=== PATIENT | male | born 1950 | race African-American/Black ===

== ENCOUNTER 2016-09-19 09:16 | Inpatient (IN) | payer OTHER ==
[2016-09-19 09:31] VITALS: BMI 18.8
--- NOTE | 2016-09-19 09:33 | PDOC ---
History of Present Illness - General History Source: Patient, Old Records Exam Limitations: No Limitations <Josefina Allison - Last Filed: 09/19/16 12:15> - History of Present Illness Initial Comments: 09/19/16 09:44 The patient is a 66 year old male, with a significant past medical history of Asthma, Hepatitis C, and small bowel obstruction s/p resection (2013), who presents to the emergency department with abdominal pain, nausea and vomiting for about 18 hours. He reports his last BM was about 14 hours ago, He reports numerous episodes of brown, liquid emesis. He states his abdominal pain is constant and diffuse. He states his pain feels similar to his prior experience with SBO. He also reports his bilateral ears feel clogged. He denies chest pain, shortness of breath, headache and dizziness. He denies fever, chills, diarrhea and constipation. He denies dysuria, frequency, urgency and hematuria. Allergies: NKDA Past surgical history: appendectomy, small bowel resection s/p SBO Social history: denies toxic habits <Nicolette Iverson - Last Filed: 09/19/16 13:52> - General Chief Complaint: Pain Stated Complaint: ABD PAIN Time Seen by Provider: 09/19/16 09:33 Past History - Past Medical History Asthma: Yes GI Disorders: Yes (sbo) Liver Disease: Yes (HEPATITIS C) - Surgical History Abdominal Surgery: Yes (EXP.LAP FOR SBO; RESECTION) Appendectomy: Yes - Immunization History Immunization Up to Date: Yes - Psycho/Social/Smoking Cessation Hx Anxiety: No Suicidal Ideation: No Smoking Status: Yes Smoking History: Former smoker Have you smoked in the past 12 months: No Number of Cigarettes Smoked Daily: 5 Information on smoking cessation initiated: No 'Breaking Loose' booklet given: 11/05/12 Hx Alcohol Use: No Drug/Substance Use Hx: No Substance Use Type: None Hx Substance Use Treatment: No <Josefina Allison - Last Filed: 09/19/16 12:15> <Nicolette Iverson - Last Filed: 09/19/16 13:52> - Past Medical History Allergies/Adverse Reactions: Allergies Allergy/AdvReac Type Severity Reaction Status Date / Time No Known Allergies Allergy Verified 09/19/16 09:24 Home Medications: Ambulatory Orders Albuterol Sulfate Inhaler - [Ventolin Hfa Inhaler -] 2 inh PO Q6H 09/19/16 Review of Systems - Review of Systems Able to Perform ROS?: Yes Comments:: 09/19/16 09:45 GENERAL/CONSTITUTIONAL: No fever or chills. No weakness. HEAD, EYES, EARS, NOSE AND THROAT: No change in vision. No ear pain or discharge. No sore throat. CARDIOVASCULAR: No chest pain or shortness of breath. RESPIRATORY: No cough, wheezing, or hemoptysis. GASTROINTESTINAL: (+) abdominal pain, nausea, vomiting, No diarrhea or constipation. GENITOURINARY: No dysuria, frequency, or change in urination. MUSCULOSKELETAL: No joint or muscle swelling or pain. No neck or back pain. SKIN: No rash NEUROLOGIC: No headache, vertigo, loss of consciousness, or change in strength/ sensation. ENDOCRINE: No increased thirst. No abnormal weight change. HEMATOLOGIC/LYMPHATIC: No anemia, easy bleeding, or history of blood clots. ALLERGIC/IMMUNOLOGIC: No hives or skin allergy. <Nicolette Iverson - Last Filed: 09/19/16 13:52> *Physical Exam - Vital Signs Last Vital Signs Temp Pulse Resp BP Pulse Ox 97.7 F 106 H 22 121/100 100 09/19/16 09:24 09/19/16 09:24 09/19/16 09:24 09/19/16 09:24 09/19/16 09:24 <Josefina Allison - Last Filed: 09/19/16 12:15> - Vital Signs Last Vital Signs Temp Pulse Resp BP Pulse Ox 97.7 F 106 H 22 121/100 100 09/19/16 09:24 09/19/16 09:24 09/19/16 09:24 09/19/16 09:24 09/19/16 09:24 - Physical Exam Comments: 09/19/16 09:46 GENERAL: (+) Cachectic. Awake, alert, and fully oriented, in no acute distress HEAD: (+) Temporal muscle wasting. No signs of trauma EYES: PERRLA, EOMI, sclera anicteric, conjunctiva clear ENT: (+) Dry oral mucosa. Auricles normal inspection, hearing grossly normal, nares patent, oropharynx clear without exudates. NECK: Normal ROM, supple, no lymphadenopathy, JVD, or masses LUNGS: (+) clear anterior with distant breath sounds diffusely. Breath sounds equal, No wheezes, and no crackles HEART: Regular rate and rhythm, normal S1 and S2, no murmurs, rubs or gallops ABDOMEN: (+) rigid abdomen with diffuse tenderness. normoactive bowel sounds. No guarding, no rebound. No masses EXTREMITIES: Normal range of motion, no edema. No clubbing or cyanosis. No cords, erythema, or tenderness NEUROLOGICAL: Cranial nerves II through XII grossly intact. Normal speech, normal gait SKIN: Warm, Dry, normal turgor, no rashes or lesions noted. <Nicolette Iverson - Last Filed: 09/19/16 13:52> ED Treatment Course - LABORATORY CBC & Chemistry Diagram: 09/19/16 10:06 09/19/16 10:06 <Josefina Allison - Last Filed: 09/19/16 12:15> - LABORATORY CBC & Chemistry Diagram: 09/19/16 10:06 09/19/16 10:06 - RADIOLOGY Radiograph Interpretation: 09/19/16 12:11 CXR was read by Impression: Abdomen CT was read by Dr. Colindres at 11:45 Impression: diffuse moderate dilation of the small bowel loops measuring up to 3.5 cm in diameter consistent with a distal small bowel obstruction. Point of transition is not identified on this exam. Post-op sutures around the mid to distal sigmoid colon. Dense calcified atheromatous plaques in the abdominal aorta wall down through its bifurcation. <Nicolette Iverson - Last Filed: 09/19/16 13:52> Medical Decision Making - Medical Decision Making 09/19/16 12:15 66-year-old male with history of asthma and multiple abdominal surgeries for small bowel obstruction presents to the emergency Department with complaints of 18 hours of abdominal pain and obstipation as well as nausea and vomiting. Differential diagnosis includes but is not limited to: Small bowel obstruction secondary to adhesions, peritonitis, colitis, dehydration, sepsis, toxic/ metabolic derangement. Plan: 1. Labs 2. Upright chest 3. Antiemetics 4. Pain management 5. CT scan of the abdomen and pelvis 6. NG tube 7. General surgery consult 8. Observe and reevaluate <Josefina Allison - Last Filed: 09/19/16 12:15> - Medical Decision Making 09/19/16 12:09 Dr. Omid Gardner was paged at his office requesting a callback for doctor to doctor consult. 09/19/16 12:10 Dr. Lubin was paged at this time requesting a call back for doctor to doctor consult. <Nicolette Iverson - Last Filed: 09/19/16 13:52> *DC/Admit/Observation/Transfer - Discharge Dispostion Admit: Yes - Attestations Physician Attestion: 09/19/16 12:17 I, Dr. Josefina Allison, attest that the scribes documentation that appears above has been prepared under my direction and personally reviewed by me in its entirety. I confirmed that the note above accurately reflects all work, treatment, procedures, and medical decision-making performed by me. <Josefina Allison - Last Filed: 09/19/16 12:15> - Attestations Scribe Attestion: 09/19/16 09:48 Documentation prepared by Nicolette Iverson, acting as medical transport specialist for Josefina Allison MD, <Nicolette Iverson - Last Filed: 09/19/16 13:52> Diagnosis at time of Disposition: Small bowel obstruction - Discharge Dispostion Condition at time of disposition: Stable - Referrals
[2016-09-19] MEDS ORDERED: morphine CARPU-JECT 4 MG/1 ML DISP.SYRIN IVPUSH ONE (09:43)
[2016-09-19] MEDS ORDERED: ONDANSETRON 4 MG/2 ML VIAL IVPUSH ONE (09:43)
[2016-09-19] MEDS ORDERED: SODIUM CHLORIDE 1,000 ML IV STA ×2 (09:43→09:44)
[2016-09-19] MEDS ORDERED: morphine CARPU-JECT 4 MG/1 ML DISP.SYRIN ONE (10:44)
[2016-09-19] MEDS ORDERED: ONDANSETRON 4 MG/2 ML VIAL ONE (10:44)
[2016-09-19 11:04] LABS: BASOPHIL 0.2 % (0-2.0); MCH 26.7 pg (25.7-33.7); MCHC 32.4 g/dl (32.0-35.9); MEAN CELL VOLUME 82.5 fl (80-96); MEAN PLT VOLUME 8.1 fl (7.5-11.1); NEUTROPHILS 88.8 % (42.8-82.8); PLATELET COUNT 225 K/MM3 (134-434); RDW 16.1 % (11.9-15.9); WHITE BLOOD COUNT 9.2 K/mm3 (4.0-10.0)
[2016-09-19 11:20] LABS: INR 1.08 (0.82-1.09); PROTHROMBIN TIME (PATIENT) 11.9 SEC (9.98-11.88)
[2016-09-19 11:23] LABS: ACTIVATED PTT 33.6 SECONDS (26.9-34.4)
[2016-09-19 11:46] LABS: ALBUMIN 5.1 g/dl (3.4-5.0); ANION GAP 12 (8-16); BILIRUBIN,TOTAL 0.9 mg/dL (0.2-1.0); CALCIUM 11.1 mg/dL (8.5-10.1); CO2 31 mmol/L (21-32); COCKROFT - GAULT 34.01; CREATININE 1.6 mg/dL (0.7-1.3); GLUCOSE,RANDOM 126 mg/dL (74-106); MAGNESIUM 2.6 mg/dL (1.8-2.4); PHOSPHOROUS 3.3 mg/dL (2.5-4.9); SGOT/AST 29 U/L (15-37); SGPT/ALT 18 U/L (12-78); TOT PROT 10.2 g/dl (6.4-8.2)
[2016-09-19 11:47] LABS: ALK PHOS 80 U/L (45-117); TROPONIN I < 0.02 ng/ml (0.00-0.05)
[2016-09-19] MEDS ORDERED: TETRACAINE/BENZOCAINE/BUTAMBEN 20 GM SPR TP ONE (12:04)
[2016-09-19] MEDS ORDERED: PIPERACILLIN/TAZOB 3.375 GM/50 ML PRE-DOCKED IV ONE (12:11)
[2016-09-19] MEDS ORDERED: VANCOMYCIN 1,000 MG in DEXTROSE 5%-WATER - 250 ML IVPB ONE (12:11)
[2016-09-19] MEDS ORDERED: VANCOMYCIN 1 GRAM (PRE-DOCKED) 250 ML IVPB ONE (12:26)
[2016-09-19] MEDS ORDERED: PIPERACILLIN/TAZOB 3.375 GM 50 ML IVPB ONE (12:26)
[2016-09-19 12:41] LABS: URINE APPEARANCE CLEAR; URINE BILIRUBIN NEGATIVE (NEGATIVE); URINE BLOOD NEGATIVE (NEGATIVE); URINE COLOR YELLOW; URINE GLUCOSE (UA) NEGATIVE (NEGATIVE); URINE KETONE TRACE (NEGATIVE); URINE LEUK ESTERASE NEGATIVE (NEGATIVE); URINE NITRITE NEGATIVE (NEGATIVE); URINE UROBILINOGEN 2.0 E.U/dl E.U./dl (0.2-1.0)
[2016-09-19 12:47] LABS: URINE PROTEIN 1+ (NEGATIVE)
[2016-09-19 12:53] LABS: URINE HYALINE CAST 35 /lpf; URINE MUCUS FEW; URINE RBC 4 /hpf (0-3); URINE WBC 2 /hpf (3-5)
[2016-09-19] MEDS ORDERED: ONDANSETRON 4 MG/2 ML VIAL IVPB PRN (13:40)
[2016-09-19] MEDS: SODIUM CHLORIDE 1,000 ML IV SCH (14:18)
--- NOTE | 2016-09-19 14:19 | HP ---
CHIEF COMPLAINT: Abdominal pain PCP: Brandy Lubin NP HISTORY OF PRESENT ILLNESS: 66 yo M with significant PMHx of Hep C and SBO s/p recection 2013 present with one day history of abdominal pain and nausea. He describes constant non- radiating stabbing 10/10 periumbilical pain. He states that initially he noticed just a distention with only being able to pass minimal amounts of gas and had a small bowl movement which then progressed into this periumbilical pain very similar to previous SBO pain. Pain was accompanied by 6-8 bout of non- bloody , non -bilous vomiting. He mentions chills and diaphoresis prior to arrival. With previous history of similar episode he promptly came to ER.He also mentions a 15lbs unintentional weight loss over past 6 mo. Denies CP, MORENO, SOB, or palpitations. ER course was notable for: (1)Abd. Ct shows SBO-Surgical consult, and NPO (2)Lactic acid was elevated --> Vanco/Zosyn x1 given (3)BUN/Cr elevated --> IVF with NS Recent Travel: Denies PAST MEDICAL HISTORY: Asthma and Hep. C (treated 2015, Dr. Guillen) PAST SURGICAL HISTORY: small bowel obstruction s/p resection 2013, appendectomy Social History: Smoking: quit 1.5yrs ago Alcohol:socially Drugs: marijuana 2x/week Family History: Allergies No Known Allergies Allergy (Verified 09/19/16 09:24) HOME MEDICATIONS: Home Medications Medication Instructions Recorded Albuterol Sulfate Inhaler - 2 inh PO Q6H 09/19/16 [Ventolin Hfa Inhaler -] REVIEW OF SYSTEMS CONSTITUTIONAL: Absent: fever, chills, diaphoresis, generalized weakness, malaise, loss of appetite, weight change HEENT: Absent: rhinorrhea, nasal congestion, throat pain, throat swelling, difficulty swallowing, mouth swelling, ear pain, eye pain, visual changes CARDIOVASCULAR: Absent: chest pain, syncope, palpitations, irregular heart rate, lightheadedness , peripheral edema RESPIRATORY: Absent: cough, shortness of breath, dyspnea with exertion, orthopnea, wheezing, stridor, hemoptysis GASTROINTESTINAL:(+) abdominal pain, abdominal distension, nausea, vomiting, Absent: diarrhea, constipation, melena, hematochezia GENITOURINARY: Absent: dysuria, frequency, urgency, hesitancy, hematuria, flank pain, genital pain MUSCULOSKELETAL: Absent: myalgia, arthralgia, joint swelling, back pain, neck pain SKIN: Absent: rash, itching, pallor HEMATOLOGIC/IMMUNOLOGIC: Absent: easy bleeding, easy bruising, lymphadenopathy, frequent infections ENDOCRINE: Absent: unexplained weight gain, unexplained weight loss, heat intolerance, cold intolerance NEUROLOGIC: Absent: headache, focal weakness or paresthesias, dizziness, unsteady gait, seizure, mental status changes, bladder or bowel incontinence PSYCHIATRIC: Absent: anxiety, depression, suicidal or homicidal ideation, hallucinations. PHYSICAL EXAMINATION GENERAL:AAOx3, mild distress, chectic with temporal wasting. HEAD: NC/AT. EYES: PERRLA,EOMI,peripheral corneal opacity, sclera anicteric, conjunctiva clear. No lid lag. EARS, NOSE, THROAT: Dry mucous membranes. NECK: Normal range of motion, supple without lymphadenopathy, JVD, or masses. LUNGS: CTAB. No wheezes, and no crackles. No accessory muscle use. HEART: RRR, normal S1 and S2 without M/G/R ABDOMEN: Rigid abdomen, periumbilical tenderness, normoactive bowel sounds, (+) voluntary guarding, no rebound, no masses. No hepatomegaly or splenomegaly. MUSCULOSKELETAL: Normal range of motion at all joints. No bony deformities or tenderness. No CVA tenderness. UPPER EXTREMITIES: 2+ pulses, warm, well-perfused. No cyanosis. No clubbing. No peripheral edema. LOWER EXTREMITIES: 2+ pulses, warm, well-perfused. No calf tenderness. No peripheral edema. NEUROLOGICAL: Cranial nerves II-XII intact. Normal speech. Normal gait. PSYCHIATRIC: Cooperative. Good eye contact. Appropriate mood and affect. SKIN: Warm, dry, normal turgor, no rashes or lesions noted, normal capillary refill. ASSESSMENT/PLAN: 66 yo M with h/o of SBO s/p resection in 2013 admitted to non-cardiac tele for SBO Problem List - Problem (1) Small bowel obstruction Assessment/Plan: * NPO * Surgical consult - Dr. Gardner * IVF with NS @ 125ml/hr * repeat Lactic acid. * given Vanco/Zosyn x 1 - ID consulted. Code(s): K56.69 - OTHER INTESTINAL OBSTRUCTION (2) DION (acute kidney injury) Assessment/Plan: * secondary to volume depletion from vomiting. * IVF with NS @ 125ml/hr * repeat labs in AM (3) Lactic acidemia Assessment/Plan: * IVF with NS @ 125ml/hr * repeat Lactic acid. (4) Asthma Assessment/Plan: * Albuterol PRN SOB (5) DVT prophylaxis Assessment/Plan: * Heparin 5000 units SQ BID Visit type - Emergency Visit Emergency Visit: Yes ED Registration Date: 09/19/16 Care time: The patient presented to the Emergency Department on the above date and was hospitalized for further evaluation of their emergent condition. - New Patient This patient is new to me today: Yes Date on this admission: 09/20/16 - Critical Care Critical Care patient: No
--- NOTE | 2016-09-19 14:49 | MSN ---
Admitting History and Physical - Primary Care Physician PCP: Brandy Lubin - Admission Chief Complaint: Abdominal pain History of Present Illness: MEDICAL STUDENT NOTE Mr. Acosta is a pleasant 66 year old male with past medical history significant for s/p small bowel resection in 2013 who presents with abdominal pain of 18 hour duration. The patient stated that 18 hours ago he began experiencing sharp pain in the periumbilical region of his stomach. The pain was rated 10/10 in intensity, was intermittent but present the majority of the time, did not radiate, and was similar to the pain he experienced in 2014 before the resection. Nothing makes the pain better and pushing on the abdomen makes the pain worse. The pain coincided with a feeling of abdominal distension , nausea, vomiting, and chills. The patient was not able to state how many times he vomited, but said that he vomited "all night". The vomit had a reddish color to it but the patient stated he had red soup earlier yesterday and that he did not see any blood in the vomit. His last bowel movement occurred approximately 12-14 hours ago. It was loose and he is unsure if there was blood. The abdominal pain became worse after the bowel movement. The patient states he has had unintentional weight loss of 15-20 lbs over the past 6-7 months; he states that he has always had a poor appetite. The patient also developed shortness of breath at approximately 4am which was remitted with use of his albuterol pump. Upon interview the patient states that his pain is 75% better and has no complaints. He denies headaches, nausea, vomiting, dizziness, chest pain, shortness of breath, numbness or tingling of the extremities. Tobacco use: Quit smoking 1.5 years ago Alcohol: 1 beer/week Recreational drugs: Marijuana use, 2x/week Past medical history: S/P small bowel resection in 2014, Hepatitis C infection unclear if treated, asthma Past surgical history: Small bowel resection 2014 Allergies: None Family History: None Medications: Albuterol pump, takes 2 times per day Social history: Lives with daughter History Source: Patient Limitations to Obtaining History: No Limitations - Past Medical History Gastrointestinal: Yes: Other (Hepatitis c, Laparotomy, small bowel reection) - Smoking History Smoking history: Former smoker Have you smoked in the past 12 months: No Aproximately how many cigarettes per day: 5 - Alcohol/Substance Use Hx Alcohol Use: No - Social History ADL: Independent History of Recent Travel: No Home Medications - Allergies Allergies/Adverse Reactions: Allergies Allergy/AdvReac Type Severity Reaction Status Date / Time No Known Allergies Allergy Verified 09/19/16 09:24 - Home Medications Home Medications: Ambulatory Orders Albuterol Sulfate Inhaler - [Ventolin Hfa Inhaler -] 2 inh PO Q6H 09/19/16 Family Disease History - Family Disease History Family Disease History: Diabetes: Sister Physical Examination Vital Signs: Vital Signs Temperature 97.7 F 09/19/16 09:24 Pulse Rate 106 H 09/19/16 09:24 Respiratory Rate 22 09/19/16 09:24 Blood Pressure 121/100 09/19/16 09:24 O2 Sat by Pulse Oximetry (%) 100 09/19/16 09:24 Constitutional: Yes: No Distress, Calm, Thin Eyes: Yes: EOM Intact, PERRL, Sclera Icterus, Other (Bilateral opaque, white- blue ring surrounding irises. Patient states rings have been present since and his brothers and sisters have them.). No: Ptosis HENT: Yes: WNL, Atraumatic, Normocephalic. No: Drooling, Nasal Congestion, Pharyngeal Erythema, Rhinnorhea, Tonsillar Exudate Neck: Yes: WNL, Supple, Trachea Midline. No: Lymphadenopathy, Rigid, Tenderness , Thyromegaly Cardiovascular: Yes: WNL, Regular Rate and Rhythm, S1, S2. No: Pulse Irregular , Murmur, Rub, S3, S4 Respiratory: Yes: WNL, Regular, CTA Bilaterally, Wheezes. No: Accessory Muscle Use, Diminished, Rales, Rhonchi, SOB Gastrointestinal: Yes: Tenderness (Periumbilical, tender to light palpation), Tenderness, Epigastrium, Tenderness, Rebound (Positive), Other (Positive for diffuse rigidity). No: Soft, Ascites, Distention, Hepatomegaly, Splenomegaly Extremities: Yes: WNL. No: Calf Tenderness, Cold, Cool, Cyanosis, Erythema Edema: No (No edema b/l LE) Peripheral Pulses WNL: Yes Peripheral Pulses: Left Radial: 2+, Right Radial: 2+, Left Doralis Pedis: 2+, Right Dorsalis Pedis: 2+ Integumentary: Yes: WNL. No: Jaundice, Rash, Skin Tear, Venous Stasis Changes Neurological: Yes: WNL, Alert, Oriented. No: Facial Droop, Lethargy, Unresponsive, Weakness Psychiatric: Yes: WNL, Alert, Oriented Assessment/Plan MEDICAL STUDENT ASSESSMENT AND PLAN Mr. Acosta is a 66 year old male s/p small bowel resection in 2013 who presents with small bowel obstruction. #Small bowel obstruction possibly due to adhesions from previous surgery, anticipating surgery with Dr. Gardner who performed patient's previous bowel surgery. - Chest x ray showed air under left diaphragm - Abdominal CT showed moderate dilation of small bowel loops up to 3.5 cm consistent with distal small bowel obstruction. - Dr. Gardner on case - Received one dose zosyn 3.375mg, one dose vancomycin 1000mg in ED - Received one dose morphine 4mg in ED - NPO - IVF started: NS 1000mls @ 125 mls/hr - Type and cross performed - Hgb: 15.8 Hct: 49. 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 Possibly arcus juvenilis or arcus senilis due to familial hypercholesterolemia. Lipid panel not performed in past and patient denies every being told he has high cholesterol. - Patient has glasses at home, states he has some difficulty with seeing that he attributes to old glasses prescription (last eye exam 2 years ago) - Lipid panel in AM to r/o arcus senilis - Will consider statin therapy depending on results of lipid panel - CHADSVASC score: 1 #DVT prophylaxis - Heparin 5000U SQ BID - SCDs Disposition: Currently awaiting patient to be taken to surgery.
--- NOTE | 2016-09-19 15:46 | PN ---
Teaching Attending Note Name of Resident: Dale Lay ATTENDING PHYSICIAN STATEMENT I saw and evaluated the patient. I reviewed the resident's note and discussed the case with the resident. I agree with the resident's findings and plan as documented. SUBJECTIVE: fever/chills with vomiting and abdominal pain starting at midnight, no appetite for last 6 months OBJECTIVE: Vital Signs Temperature 99 F 09/19/16 14:47 Pulse Rate 74 09/19/16 14:47 Respiratory Rate 18 09/19/16 14:47 Blood Pressure 116/83 09/19/16 14:47 O2 Sat by Pulse Oximetry (%) 97 09/19/16 14:47 CBCD WBC 9.2 K/mm3 (4.0-10.0) D 09/19/16 10:06 RBC 5.94 M/mm3 (4.00-5.60) H D 09/19/16 10:06 Hgb 15.8 GM/dL (11.7-16.9) D 09/19/16 10:06 Hct 49.0 % (35.4-49) D 09/19/16 10:06 MCV 82.5 fl (80-96) 09/19/16 10:06 MCHC 32.4 g/dl (32.0-35.9) 09/19/16 10:06 RDW 16.1 % (11.9-15.9) H 09/19/16 10:06 Plt Count 225 K/MM3 (134-434) D 09/19/16 10:06 MPV 8.1 fl (7.5-11.1) 09/19/16 10:06 CMP Sodium 138 mmol/L (136-145) 09/19/16 10:06 Potassium 5.2 mmol/L (3.5-5.1) H D 09/19/16 10:06 Chloride 95 mmol/L (98-107) L 09/19/16 10:06 Carbon Dioxide 31 mmol/L (21-32) D 09/19/16 10:06 Anion Gap 12 (8-16) 09/19/16 10:06 BUN 16 mg/dL (7-18) D 09/19/16 10:06 Creatinine 1.6 mg/dL (0.7-1.3) H D 09/19/16 10:06 Creat Clearance w eGFR 43.20 (>60) 09/19/16 10:06 Random Glucose 126 mg/dL (74-106) H D 09/19/16 10:06 Calcium 11.1 mg/dL (8.5-10.1) H D 09/19/16 10:06 Total Bilirubin 0.9 mg/dL (0.2-1.0) D 09/19/16 10:06 AST 29 U/L (15-37) 09/19/16 10:06 ALT 18 U/L (12-78) D 09/19/16 10:06 Alkaline Phosphatase 80 U/L (45-117) 09/19/16 10:06 Total Protein 10.2 g/dl (6.4-8.2) H 09/19/16 10:06 Albumin 5.1 g/dl (3.4-5.0) H 09/19/16 10:06 CARDIAC ENZYMES Creatine Kinase 530 IU/L (39-308) H D 09/19/16 10:06 Troponin I < 0.02 ng/ml (0.00-0.05) 09/19/16 10:06 Current Medications Generic Name Dose Route Start Last Admin Trade Name Freq PRN Reason Stop Dose Admin Heparin Sodium (Porcine) 5,000 unit 09/19/16 22:00 Heparin - SQ BID EMILY Sodium Chloride 1,000 mls @ 125 mls/hr 09/19/16 13:45 09/19/16 14:18 Normal Saline - IV 125 mls/hr ASDIR EMILY Administration Ondansetron HCl 4 mg 09/19/16 13:40 Zofran Injection IVPB Q8H PRN NAUSEA Home Medications Medication Instructions Recorded Albuterol Sulfate Inhaler - 2 inh PO Q6H 09/19/16 [Ventolin Hfa Inhaler -] PE: PER RESIDENT'S NOTE ASSESSMENT AND PLAN: Patient is a 66 yo M with significant PMHx of Hep C and SBO s/p recection 2013 present with one day history of abdominal pain and nausea. He describes constant non-radiating stabbing 10/10 periumbilical pain. prior history of SBO. 15 pounds of weight lose # Acute distal small bowel obstruction NGt if needed, npo, no pain meds for now , just IV tylenol if needed to avoid ileus # lactic acidosis , hurtado culture, iv zosyn and id consult # Acute Dehydartion IVF # Acute renal failure due to dehydration IVF, repeat levels in am # weight lose r/o malignancy DVT px: heparin sq
[2016-09-19 15:53] LABS: CALCIUM 8.3 mg/dL (8.5-10.1)
[2016-09-19 15:56] LABS: COCKROFT - GAULT 45.35; CREATININE 1.2 mg/dL (0.7-1.3)
--- NOTE | 2016-09-19 16:57 | CONSULT ---
Consult Consult Specialty:: Surgery Reason for Consultation:: Small bowel obstruction - History of Present Illness History of Present Illness: 66 male presents to ER for abdominal pain, distention, and vomiting x 1 day No flatus x 1 day History of bowel obstruction in the past needing an exploratory laparotomy and bowel resection - History Source History Provided By: Patient, Medical Record Limitations to Obtaining History: No Limitations - Past Medical History Gastrointestinal: Yes: Other (Hepatitis c, Laparotomy, small bowel reection) - Alcohol/Substance Use Hx Alcohol Use: No - Smoking History Smoking history: Former smoker Have you smoked in the past 12 months: No Aproximately how many cigarettes per day: 5 - Social History ADL: Independent History of Recent Travel: No Home Medications - Allergies Allergies/Adverse Reactions: Allergies Allergy/AdvReac Type Severity Reaction Status Date / Time No Known Allergies Allergy Verified 09/19/16 09:24 - Home Medications Home Medications: Ambulatory Orders Albuterol Sulfate Inhaler - [Ventolin Hfa Inhaler -] 2 inh PO Q6H 09/19/16 Family Disease History - Family Disease History Family Disease History: Diabetes: Sister Review of Systems - Review of Systems Constitutional: denies: Chills, Fever Neck: reports: No Symptoms Cardiovascular: denies: Chest Pain Respiratory: denies: Cough Gastrointestinal: reports: Abdominal Pain, Vomiting Genitourinary: reports: No Symptoms Pain Intensity: 2 Physical Exam Vital Signs: Vital Signs Temperature 99 F 09/19/16 14:47 Pulse Rate 74 09/19/16 14:47 Respiratory Rate 18 09/19/16 14:47 Blood Pressure 116/83 09/19/16 14:47 O2 Sat by Pulse Oximetry (%) 97 09/19/16 14:47 Constitutional: Yes: Calm HENT: Yes: WNL Neck: Yes: Supple Cardiovascular: Yes: Regular Rate and Rhythm Respiratory: Yes: Regular Gastrointestinal: Yes: Soft. No: Distention, Tenderness Neurological: Yes: Alert, Oriented Labs: CBC, BMP 09/19/16 15:00 Imaging - Results Cat Scan: Report Reviewed, Image Reviewed Problem List - Problems (1) Small bowel obstruction Code(s): K56.69 - OTHER INTESTINAL OBSTRUCTION Assessment/Plan 66 male with small bowel obstruction vs ileus Pain completely resolved Passing flatus Abd soft, NT, ND Diet as tolerated No surgical intervention needed at this time
[2016-09-19 17:07] LABS: HIV 1 & 2 AB NEGATIVE; HIV 1 AGp24 NEGATIVE
--- NOTE | 2016-09-19 17:35 | PN ---
Progress Note (short form) - Note Progress Note: ID consult dictated imp/reccd distal small bowel obstruction fever/chills with vomiting and abdominal pain starting at midnight prior history of SBO 15 pound weight loss no appetite for last 6 months +lactic acidosis no dysuria chronic SOB continue zosyn -gi coverage for now, f/u cultures ?malignancy agree with HIV testing
[2016-09-19] MEDS ORDERED: ALBUTEROL SO4 2.5/IPRATROPIUM 0.5 INH SOL 3 ML VIAL.NEB. NEB PRN (17:48)
[2016-09-19] MEDS: PIPERACILLIN/TAZOB 3.375 GM/50 ML PRE-DOCKED IVPB SCH (18:11)
[2016-09-19] MEDS ORDERED: morphine CARPU-JECT 2 MG/1 ML DISP.SYRIN IVPUSH ONE (18:28)
--- NOTE | 2016-09-19 19:23 | CONS ---
DATE OF CONSULTATION: DATE OF DICTATION: 09/19/2016 INFECTIOUS DISEASE CONSULTATION REQUESTING PHYSICIAN: Hospitalist service CONSULTING PHYSICIAN: Shannon Vilchis M.D. HISTORY OF PRESENT ILLNESS: This is a 66-year-old man with a prior history of small bowel resection. He originally had surgery in 2012. After he had a colonoscopy he was noted to have free air, subsequently he underwent surgery at that time he had. He subsequently had surgery in 2013 for a small bowel obstruction, at which time he had some small bowel resected. After that, he had a subsequent admission 2013 where he was medically managed for small bowel obstruction. He is now readmitted in 2016 with sudden onset from midnight last night of vomiting with acute abdominal pain. He reports fever and chills at home. He said he had a temperature of 102. He had 6-8 bouts of nonbloody vomiting. In the emergency room, he was noted to have a distal small bowel obstruction. He was noted to have an elevated lactic acid and ID consult was requested. He was given vancomycin and Zosyn. Patient reports for the last 6 months he has really had no appetite. He has had a 15-pound weight loss. PAST MEDICAL HISTORY: Notable for hepatitis C. He denies a history of HIV. He has a history of asthma and surgical history as per HPI. SOCIAL HISTORY: He recently quit smoking. He uses marijuana and alcohol socially. ALLERGIES: No known drug allergies. MEDICATION: Medications at home include Ventolin inhaler. FAMILY HISTORY: Denies any malignancy history. REVIEW OF SYSTEMS: Notable for midepigastric abdominal pain which has improved but is still present. PHYSICAL EXAMINATION: General: He is a thin man in no acute distress. Vital signs: He weighs 120 pounds. His temperature is 99, pulse 74, blood pressure 116/83, respiratory rate 18. HEENT: Normocephalic. Eyes are anicteric. He has temporal wasting. Neck: Supple. He has no thrush. Lungs: Distant bowel sounds. He has distant breath sounds. Lungs are clear to auscultation. Heart: Regular rate and rhythm. Abdomen: Firm. He has bowel sounds. He has midepigastric tenderness. He has a midline incision that is well healed. Extremities: Without edema. His white count is 9.2, hemoglobin 15.8, platelets 225, INR 1.08. BUN and creatinine were 16 and 1.6 on admission, with a lactic acid of 3.1. Urinalysis is 2 white cells. Total protein is 10.2 with an albumin of 5.1 and HIV screen is pending. Blood cultures have been sent. IMPRESSION: In summary, this is a 66-year-old man admitted with fevers, chills, acute onset of vomiting and abdominal pain. CAT scan consistent with distal small bowel obstruction. Concern for malignancy given the weight loss and lack of appetite. Would agree with human immunodeficiency virus testing. Would continue Zosyn for now for gastrointestinal coverage. He is n.p.o. and there is no parenteral metronidazole available with followup cultures which have been sent. I discussed his management with the primary service. SHANNON VILCHIS M.D. [id number] MTDD
[2016-09-19] MEDS: HEPARIN NA (PORCINE) 5,000 UNITS/ML 1ML VIAL SQ SCH (21:57)
[2016-09-20] MEDS: PIPERACILLIN/TAZOB 3.375 GM/50 ML PRE-DOCKED IVPB SCH ×3 (01:11→18:12)
[2016-09-20 08:03] LABS: BASOPHIL 0.4 % (0-2.0); EOSINOPHIL 0.5 % (0-4.5); MCH 26.7 pg (25.7-33.7); MCHC 32.5 g/dl (32.0-35.9); MEAN CELL VOLUME 82.1 fl (80-96); NEUTROPHILS 38.6 % (42.8-82.8); PLATELET COUNT 154 K/MM3 (134-434); WHITE BLOOD COUNT 6.1 K/mm3 (4.0-10.0)
[2016-09-20 08:18] LABS: INR 1.23 (0.82-1.09); PROTHROMBIN TIME (PATIENT) 13.6 SEC (9.98-11.88)
[2016-09-20 08:45] LABS: CHOLESTEROL 118 mg/dL (50-200); LDL CHOLESTEROL (ONLY SJRH) 43 mg/dL (5-100)
[2016-09-20 08:47] LABS: ALBUMIN 3.2 g/dl (3.4-5.0); ALK PHOS 43 U/L (45-117); ANION GAP 9 (8-16); BILIRUBIN,TOTAL 0.9 mg/dL (0.2-1.0); CALCIUM 8.2 mg/dL (8.5-10.1); CO2 25 mmol/L (21-32); COCKROFT - GAULT 54.43; GLUCOSE,RANDOM 80 mg/dL (74-106); PHOSPHOROUS 3.4 mg/dL (2.5-4.9); SGOT/AST 17 U/L (15-37); SGPT/ALT 12 U/L (12-78); TOT PROT 6.1 g/dl (6.4-8.2)
[2016-09-20] MEDS ORDERED: PT OWN MED DRAWER 7, Y5N ONE ×2 (10:59→17:47)
--- NOTE | 2016-09-20 12:21 | EKG ---
Test Reason : Blood Pressure : / mmHG Vent. Rate : 068 BPM Atrial Rate : 068 BPM P-R Int : 142 ms QRS Dur : 074 ms QT Int : 400 ms P-R-T Axes : 077 076 073 degrees QTc Int : 425 ms NORMAL SINUS RHYTHM NORMAL ECG WHEN COMPARED WITH ECG OF 11-JAN-2014 01:17, NON-SPECIFIC CHANGE IN ST SEGMENT IN INFERIOR LEADS Confirmed by TRUE CORADO, KAREL ([id number]) on 09/20/2016 12:21:04 PM Referred By: Confirmed By:KAREL BISWAS MD
[2016-09-20] MEDS: HEPARIN NA (PORCINE) 5,000 UNITS/ML 1ML VIAL SQ SCH ×2 (13:03→22:26)
--- NOTE | 2016-09-20 14:44 | PN ---
Progress Note (short form) - Note Progress Note: feels better no vomiting tolerating clears less abdominal pain Vital Signs Period Temp Pulse Resp BP Sys/Monsalve Pulse Ox Last 24 Hr 98 F-99 F 51-74 18-20 97-134/43-83 96-99 cor-rrr lungs- clear abd-soft,nt ext no edema CBC, BMP 09/20/16 06:20 09/20/16 06:20 Microbiology 09/19/16 10:04 Urine - Urine Clean Catch Urine Culture - Final Contaminated: Please Repeat 09/19/16 09:43 Blood - Peripheral Venous Blood Culture - Preliminary NO GROWTH OBTAINED AFTER 24 HOURS, INCUBATION TO CONTINUE FOR 4 DAYS. 09/19/16 09:43 Blood - Peripheral Venous Blood Culture - Preliminary NO GROWTH OBTAINED AFTER 24 HOURS, INCUBATION TO CONTINUE FOR 4 DAYS. HIV negative a/p Distal SBO resolving patient with history of fever and chills at home- if cultures negative in am, can d/c zosyn
[2016-09-20] MEDS: SODIUM CHLORIDE 1,000 ML IV SCH (15:03)
--- NOTE | 2016-09-20 15:41 | PN ---
Physical Exam: SUBJECTIVE: Patient seen and examined at bedside. No new complaints. No overnight events. Abd. pain has improved. Has been able to pass gas. Denies CP, MORENO, palpitations, N/V. OBJECTIVE: Vital Signs Period Temp Pulse Resp BP Sys/Monsalve Pulse Ox Last 24 Hr 97.9 F-98.7 F 51-62 18-20 97-134/43-78 96-99 GENERAL: AAOx3, NAD, cachectic. HEAD: NC/AT. EYES: PERRL, EOMI, sclera anicteric, conjunctiva clear. No ptosis. ENT: moist mucous membranes. NECK: Thick, supple, no jvd LUNGS: CTAB, no wheezes, no crackles, no accessory muscle use. HEART: RRR, S1, S2 normal, No M/G/R ABDOMEN: Soft, peribumbilical tenderness ,ND, BS(+),voluntary guarding, no rebound, no hepatosplenomegaly, no masses. EXTREMITIES: 2+ pulses, warm, well-perfused, no edema. NEUROLOGICAL: Cranial nerves II through XII grossly intact. Normal speech, gait not observed. PSYCH: Normal mood, normal affect. SKIN: Warm, dry, normal turgor, Laboratory Results - last 24 hr 09/19/16 09/19/16 09/19/16 15:00 15:00 15:00 WBC RBC Hgb Hct MCV MCHC RDW Plt Count MPV Neutrophils % Lymphocytes % Monocytes % Eosinophils % Basophils % INR Sodium 141 Potassium 5.2 H Chloride 107 D Carbon Dioxide 25 Anion Gap 9 BUN 14 Creatinine 1.2 D Creat Clearance w eGFR Random Glucose 130 H Lactic Acid 1.267 Calcium 8.3 L D Phosphorus Magnesium Total Bilirubin AST ALT Alkaline Phosphatase Total Protein Albumin Triglycerides Cholesterol Total LDL Cholesterol HDL Cholesterol HIV 1&2 Antibody Screen Negative HIV P24 Antigen Negative 09/19/16 09/20/16 09/20/16 17:30 06:20 06:20 WBC 6.1 D RBC 4.30 D Hgb 11.5 L D Hct 35.3 L D MCV 82.1 MCHC 32.5 RDW 16.0 H Plt Count 154 D MPV 8.0 Neutrophils % 38.6 L D Lymphocytes % 53.0 H D Monocytes % 7.5 D Eosinophils % 0.5 D Basophils % 0.4 INR 1.23 H Sodium Potassium Chloride Carbon Dioxide Anion Gap BUN Creatinine Creat Clearance w eGFR Random Glucose Lactic Acid 1.738 Calcium Phosphorus Magnesium Total Bilirubin AST ALT Alkaline Phosphatase Total Protein Albumin Triglycerides Cholesterol Total LDL Cholesterol HDL Cholesterol HIV 1&2 Antibody Screen HIV P24 Antigen 09/20/16 09/20/16 06:20 06:20 WBC RBC Hgb Hct MCV MCHC RDW Plt Count MPV Neutrophils % Lymphocytes % Monocytes % Eosinophils % Basophils % INR Sodium 143 Potassium 4.0 D Chloride 109 H Carbon Dioxide 25 Anion Gap 9 BUN 12 Creatinine 1.0 Creat Clearance w eGFR > 60 Random Glucose 80 D Lactic Acid Calcium 8.2 L Phosphorus 3.4 Magnesium 2.0 D Total Bilirubin 0.9 AST 17 D ALT 12 D Alkaline Phosphatase 43 L D Total Protein 6.1 L D Albumin 3.2 L D Triglycerides 70 Cholesterol 118 Total LDL Cholesterol 43 HDL Cholesterol 82 H HIV 1&2 Antibody Screen HIV P24 Antigen Active Medications Generic Name Dose Route Start Last Admin Trade Name Freq PRN Reason Stop Dose Admin Albuterol/Ipratropium 1 amp 09/19/16 17:48 Duoneb - NEB Q4H PRN SHORTNESS OF BREATH Heparin Sodium (Porcine) 5,000 unit 09/19/16 22:00 09/20/16 13:03 Heparin - SQ 5,000 unit BID EMILY Administration Sodium Chloride 1,000 mls @ 125 mls/hr 09/19/16 13:45 09/20/16 15:03 Normal Saline - IV 125 mls/hr ASDIR EMILY Administration Ondansetron HCl 4 mg 09/19/16 13:40 Zofran Injection IVPB Q8H PRN NAUSEA Piperacillin Sod/Tazobactam Sod 3.375 gm 09/19/16 18:00 09/20/16 12:03 Zosyn 3.375gm Ivpb (Pre-Docked) IVPB 3.375 gm Q8H-IV EMILY Administration Protocol ASSESSMENT/PLAN: Problem List - Problems (1) Small bowel obstruction Assessment/Plan: * Advanced diet. * Will obtain a CT abdomen with IV and PO contract to r/o mass. * Seen by Dr. Gardner- no intervention at this time * IVF with NS @ 125ml/hr * IF no growth in blood cultures will discontinue Zosyn in AM Code(s): K56.69 - OTHER INTESTINAL OBSTRUCTION (2) DION (acute kidney injury) Assessment/Plan: * resolved. * Most likely from volume depletion. * repeat labs in AM (3) Lactic acidemia Assessment/Plan: * resolved with IVF (4) Asthma Assessment/Plan: * Albuterol PRN SOB (5) DVT prophylaxis Assessment/Plan: * Heparin 5000 units SQ BID Visit type - Emergency Visit Emergency Visit: Yes ED Registration Date: 09/19/16 Care time: The patient presented to the Emergency Department on the above date and was hospitalized for further evaluation of their emergent condition. - New Patient This patient is new to me today: No - Critical Care Critical Care patient: No - Discharge Referral Referred to [facility] No
--- NOTE | 2016-09-20 17:28 | MSN ---
Progress Note (SOAP) - Subjective Chief Complaint: Abdominal pain History of Present Illness: MEDICAL STUDENT NOTE Mr. Acosta is a 66 year old male with past medical history significant for s/p small bowel resection in 2014, Hepatitis C infection, and asthma who was admitted for acute small bowel obstruction. The patient is calm and states that his abdominal pain is currently a 3/10 and primarily located in his umbilical region. He had one bowel movement yesterday but not one today and is passing gas. He has some shortness of breath. He denies nausea, vomiting, chest pain, headaches, or chills. - Current Medications Current Medications: Active Medications Albuterol/Ipratropium (Duoneb -) 1 amp NEB Q4H PRN PRN Reason: SHORTNESS OF BREATH Heparin Sodium (Porcine) (Heparin -) 5,000 unit SQ BID [facility] Last Admin: 09/20/16 13:03 Dose: 5,000 unit Sodium Chloride (Normal Saline -) 1,000 mls @ 125 mls/hr IV ASDIR [facility] Last Admin: 09/20/16 15:03 Dose: 125 mls/hr Ondansetron HCl (Zofran Injection) 4 mg IVPB Q8H PRN PRN Reason: NAUSEA Piperacillin Sod/Tazobactam Sod (Zosyn 3.375gm Ivpb (Pre-Docked)) 3.375 gm IVPB Q8H-IV EMILY PRN Reason: Protocol Last Admin: 09/20/16 12:03 Dose: 3.375 gm - Objective Vital Signs: Vital Signs Temperature 97.9 F 09/20/16 14:00 Pulse Rate 56 L 09/20/16 14:00 Respiratory Rate 20 09/20/16 14:00 Blood Pressure 108/69 09/20/16 14:00 O2 Sat by Pulse Oximetry (%) 99 09/19/16 21:00 Constitutional: Yes: No Distress, Calm, Thin. No: Anxious, Diaphoresis Eyes: Yes: WNL, EOM Intact, PERRL, Other (Opaque ring bilaterally in periphery of iris). No: Ptosis HENT: Yes: WNL, Atraumatic, Normocephalic. No: Drooling, Nasal Congestion, Rhinnorhea Neck: Yes: WNL, Supple, Trachea Midline Cardiovascular: Yes: WNL, Regular Rate and Rhythm, S1, S2. No: Pulse Irregular , Murmur, Rub, S3, S4 Respiratory: Yes: WNL, Regular, CTA Bilaterally. No: Accessory Muscle Use, Orthopnea, Rales, Rhonchi, SOB, Wheezes Gastrointestinal: Yes: Tenderness (In all 4 quadrants), Tenderness, Epigastrium , Tenderness, Rebound. No: Distention, Hepatomegaly, Splenomegaly Extremities: Yes: WNL. No: Calf Tenderness, Cold, Cool, Cyanosis, Deformity, Erythema Peripheral Pulses WNL: Yes Peripheral Pulses: Left Radial: 2+, Right Radial: 2+, Left Doralis Pedis: 2+, Right Dorsalis Pedis: 2+ Edema: No (No edema b/l LE) Integumentary: Yes: Other (Dry skin bilateral lower extremities). No: Bruising , Erythema, Rash Neurological: Yes: WNL, Alert, Oriented. No: Facial Droop, Lethargy, Unresponsive Psychiatric: Yes: WNL, Alert, Oriented. No: Agitated Labs Lab Results: CBC, BMP 09/20/16 06:20 09/20/16 06:20 Assessment/Plan MEDICAL STUDENT ASSESSMENT AND PLAN Mr. Acosta is a 66 year old male s/p small bowel resection in 2013 who presents with small bowel obstruction. #Small bowel obstruction etiology could be due to adhesions from previous bowel surgery vs. malignancy when considered with his unintentional weight loss 15-20 lbs in past 6 months. Last colonoscopy 2 years ago and had some polyps removed, patient does not remember being told when to repeat colonoscopy. - Abdominal CT with IV and PO contrast to r/o malignancy. - Consider PSA with JANELLE to r/o malignancy from prostate. Patient unsure if he ever had his prostate checked. - Per Dr. Gardner no surgical intervention needed - Day 2 zosyn 3.375mg QID. Per ID, if blood cultures are negative tomorrow can d /c zosyn - Started soft solids in diet, will assess for complications - Zofran 4mg Q8hr PRN for nausea #Opaque ring surrounding left and right irises patient states he has had rings since and his siblings have the same rings. Not likely due to arcus juvenilis as lipid panel was within normal limits. Possibly normal variant due to no occular complaints and family history. #Asthma - Duoneb 1 amp q4hr PRN #DVT prophylaxis - Heparin 5000U SQ BID - SCDs Disposition: Awaiting results of abdominal CT and 48 hour blood cultures. If no abnormal findings, can discharge patient tomorrow.
--- NOTE | 2016-09-20 18:29 | PN ---
Teaching Attending Note Name of Resident: Dale Lay ATTENDING PHYSICIAN STATEMENT I saw and evaluated the patient. I reviewed the resident's note and discussed the case with the resident. I agree with the resident's findings and plan as documented. SUBJECTIVE: no abd pain, has no fever or chills, no N/V , passed gas and had BM . OBJECTIVE: NAD Cv : RRR lungs: CTAb ext : no edema Abd : soft, NT, ND , voluntary guarding , no rebound tenderness, minimal TTP in RLQ and RUQ . NL BS ASSESSMENT AND PLAN: 66 y/o man with h/o Hep C, recurrent SBO, Asthma , appendectomy who rpesented with abd pain and was found to have SBO 1- SBO : resolved now . has benign abd exam . - advance diet to full liquids then soft diet - due to the weight loss , will get CT of abd /P with IV contrast to r/o mass ( initial CT was done w/o contrast ) - cont zosyn due to elevated lactate and concern fro initial ischemia , blood cx is pending 2- weight loss, consider malignancy. last colonoscopy was done 2 yrs ago, never had PSA or JANELLE. has a h/o smoking , cxray with no masses - check CT abd/p with contrast - if neg , will need CT chest as out pt - rest of malignancy w/u as out pt - check TSH to r/o hyperthyroidism 3- dispo : dc home if blood cx remains neg by tomorrow . PT eval
[2016-09-21] MEDS: PIPERACILLIN/TAZOB 3.375 GM/50 ML PRE-DOCKED IVPB SCH ×2 (01:51→09:04)
[2016-09-21 08:20] LABS: ALBUMIN 2.9 g/dl (3.4-5.0); ANION GAP 7 (8-16); CALCIUM 8.1 mg/dL (8.5-10.1); CO2 26 mmol/L (21-32); GLUCOSE,RANDOM 73 mg/dL (74-106); SGPT/ALT 12 U/L (12-78)
[2016-09-21 08:31] LABS: ALK PHOS 38 U/L (45-117); BILIRUBIN,TOTAL 0.5 mg/dL (0.2-1.0); COCKROFT - GAULT 49.48; CREATININE 1.1 mg/dL (0.7-1.3); SGOT/AST 17 U/L (15-37); THYROID STIMULATING HORMONE 0.82 uIU/ml (0.358-3.74); TOT PROT 5.8 g/dl (6.4-8.2)
[2016-09-21 08:36] LABS: BASOPHIL 0.3 % (0-2.0); EOSINOPHIL 0.7 % (0-4.5); MCH 26.9 pg (25.7-33.7); MCHC 32.7 g/dl (32.0-35.9); MEAN CELL VOLUME 82.1 fl (80-96); MEAN PLT VOLUME 8.3 fl (7.5-11.1); NEUTROPHILS 36.2 % (42.8-82.8); PLATELET COUNT 175 K/MM3 (134-434); RDW 15.4 % (11.9-15.9); WHITE BLOOD COUNT 4.9 K/mm3 (4.0-10.0)
[2016-09-21] MEDS: HEPARIN NA (PORCINE) 5,000 UNITS/ML 1ML VIAL SQ SCH (09:04)
--- NOTE | 2016-09-21 11:31 | CONSULT ---
Admitting History and Physical - Primary Care Physician PCP: Georgia Butler - Admission History of Present Illness: Per EMR: "HISTORY OF PRESENT ILLNESS: 66 yo M with significant PMHx of Hep C and SBO s/p recection 2013 present with one day history of abdominal pain and nausea. He describes constant non- radiating stabbing 10/10 periumbilical pain. He states that initially he noticed just a distention with only being able to pass minimal amounts of gas and had a small bowl movement which then progressed into this periumbilical pain very similar to previous SBO pain. Pain was accompanied by 6-8 bout of non- bloody , non -bilous vomiting. He mentions chills and diaphoresis prior to arrival. With previous history of similar episode he promptly came to ER.He also mentions a 15lbs unintentional weight loss over past 6 mo. Denies CP, MORENO, SOB, or palpitations." SBO resolved. Pt reports difficulty swallowing at times x 2 years duration. History Source: Patient Limitations to Obtaining History: No Limitations - Past Medical History Gastrointestinal: Yes: Other (Hepatitis c, Laparotomy, small bowel reection) - Smoking History Smoking history: Former smoker Have you smoked in the past 12 months: No Aproximately how many cigarettes per day: 5 If you are a former smoker, when did you quit?: 1.5yrs ago - Alcohol/Substance Use Hx Alcohol Use: No - Social History ADL: Independent History of Recent Travel: No History - Admission Reason For Visit: SMALL BOWEL OBSTRUCTION - Diagnostics X-ray: Report Reviewed - General Mental Status: Alert and Oriented, Awake and Alert, Able to Follow Commands Attention: Intact Ability to Follow Directions: Good Head/Neck Control: WFL - Hearing Hearing: Normal Speech Evaluation - Communication Primary Language: CENTRAL [place]FR[place] Communication: Yes: Within Normal Limits Oral Expression Ability: Yes: No Impairment - Swallow Evaluation/Bedside Assessment Current Nutritional Intake: Regular, Thin Liquids Oral Secretions: Yes: WFL Dentition: Yes: Adequate (underbite), Dental Appliance Upper, Dental Appliance Lower, Dental Fit Inadequate Facial Symmetry at Rest: Symmetrical Facial Symmetry on Retraction: Symmetrical Facial Movement: Controlled Sensation: Normal Against Resistance Opening: Normal Against Resistance Closing: Normal Pucker Lips: Normal Smile: Normal Lingual Movement: Normal, Symmetric Lingual Speed of Movement: Normal Lingual Movement Strgth Against Opposition: Normal Lingual Movement Characteristics: Normal Velopharyngeal Movement: Normal Laryngeal Elevation: WFL Laryngeal Movement: Able to Palpate Rate of Intake: WFL Bolus Size: WFL Labial Seal: WFL Chewing: WFL Oral Prep Time: WFL A-P Transit: WFL Pocketing: None Timing of Swallow: WFL Coughing/Throat Clear: No Change in Voice: No Recommendations - Speech Evaluation, Impression/Plan Impression: Pt reports difficulty swallowing at times x 2 years duration. Dentures with underbite. Suspect laryngopharyngeal reflux with frequent intake of soda and orange juice, late dinners, reclines after eating. Swallowing overtly brisk with no cough or change in vocal quality. - Dysphagia Impressions/Plan Swallowing Skills: WFL Recommendations: Other (Pt educated verbally and written rec on elimination of [place], Carbonation, caffiene, ETOH.Upright for 1 hour after meals and no PO intake within 2-3 hrs of bedtime. Follow up with ENT/GI if symptoms persist) - Recommendations Diet Consistency: Regular Medication Administration: Whole with water Liquids: Thin Liquids
--- NOTE | 2016-09-21 13:00 | MSN ---
Progress Note (SOAP) - Subjective Chief Complaint: Abdominal pain History of Present Illness: MEDICAL STUDENT NOTE Mr. Acosta is a 66 year old male with past medical history significant for s/p small bowel resection in 2013, recurrent SBO, Hepatitis C infection, and asthma who was admitted for acute small bowel obstruction. The patient had no acute overnight events. He was able to tolerate soft solids last night for dinner and had some cereal this morning. He had one loose bowel movement yesterday. His pain is located in the epigastric region today, described as the same sharp pain he had prior to admission but less intense. Pushing on his abdomen is the only thing that makes the pain worse. When he tried to get out of bed to walk today he made it approximately 10 steps before buckling to the floor and developing shortness of breath. He was placed back in bed and given 1L oxygen via nasal cannula. Additionally he noted that he has had trouble swallowing hard foods such as steak for the past two years but no trouble with soft foods or liquids. He denies nausea, vomiting, stomach cramps, blood in stool, headaches, dizziness , or chills. - Current Medications Current Medications: Active Medications Albuterol/Ipratropium (Duoneb -) 1 amp NEB Q4H PRN PRN Reason: SHORTNESS OF BREATH Heparin Sodium (Porcine) (Heparin -) 5,000 unit SQ BID [facility] Last Admin: 09/21/16 09:04 Dose: 5,000 unit Sodium Chloride (Normal Saline -) 1,000 mls @ 125 mls/hr IV ASDIR [facility] Last Admin: 09/20/16 15:03 Dose: 125 mls/hr Ondansetron HCl (Zofran Injection) 4 mg IVPB Q8H PRN PRN Reason: NAUSEA Piperacillin Sod/Tazobactam Sod (Zosyn 3.375gm Ivpb (Pre-Docked)) 3.375 gm IVPB Q8H-IV EMILY PRN Reason: Protocol Last Admin: 09/21/16 09:04 Dose: 3.375 gm - Objective Vital Signs: Vital Signs Temperature 98.0 F 09/20/16 21:18 Pulse Rate 54 L 09/21/16 06:00 Respiratory Rate 20 09/21/16 06:00 Blood Pressure 118/69 09/21/16 06:00 O2 Sat by Pulse Oximetry (%) 95 09/20/16 21:00 Constitutional: Yes: Mild Distress, Thin. No: Diaphoresis Eyes: Yes: PERRL, Other (Opaque blue ring in right and left corneas). No: Ptosis, Tearing HENT: Yes: WNL, Atraumatic, Normocephalic. No: Drooling, Nasal Congestion, Pharyngeal Erythema, Tonsillar Exudate Neck: Yes: WNL, Supple, Trachea Midline. No: Decreased ROM Cardiovascular: Yes: WNL, Regular Rate and Rhythm, S1, S2. No: Pulse Irregular , JVD, Gallop, Murmur, Rub Respiratory: Yes: WNL, Regular, CTA Bilaterally, On Nasal O2 (1L). No: Cough, Rales, Rhonchi, Wheezes Gastrointestinal: Yes: Normal Bowel Sounds, Soft, Tenderness, Epigastrium, Tenderness, Rebound, Other (Voluntary guarding of RUQ). No: Distention, Splenomegaly Extremities: Yes: WNL. No: Calf Tenderness, Cold, Cool, Cyanosis, Erythema Peripheral Pulses WNL: Yes Peripheral Pulses: Left Radial: 2+, Right Radial: 2+, Left Doralis Pedis: 2+, Right Dorsalis Pedis: 2+ Edema: No (No edema b/l LE) Neurological: Yes: WNL, Alert, Oriented, Unsteady Gait. No: Facial Droop, Lethargy Psychiatric: Yes: WNL, Alert, Oriented Labs Lab Results: CBC, BMP 09/21/16 06:11 09/21/16 06:11 Assessment/Plan MEDICAL STUDENT ASSESSMENT AND PLAN Mr. Acosta is a 66 year old male s/p small bowel resection in 2013 and previous episodes of SBO who presents with small bowel obstruction. #Small bowel obstruction resolved, per abdominal CT with contrast. Etiology could be due to adhesions from prior abdominal surgery or could be secondary to malignancy when considered with his unintentional weight loss 15-20lbs in past [address] showed no acute pathologies, recommend that patient sees PCP for further malignancy workup. - Out patient CT of chest, r/o lung cancer as patient is former smoker - Outpatient PSA with JANELLE to r/o malignancy from prostate. Patient unsure if he ever had his prostate checked. - Discontinue zosyn 3.375mg as blood cultures negative at 48 hours #Acute dyspnea on exertion likely due to deconditioning from COPD and since patient was on bed rest. - Seen by PT today, patient walked approximately 10 feet using IV pole as assistance before needing assistance to chair to rest - Awaiting Pre and Post O2 test results #Dysphagia with solid foods, per [employer] report most likely secondary to laryngopharyngeal reflux. - Per [employer], avoid caffeine, citrus, carbonated beverages, EtOH. Sit upright 1 hour after meals, no meals 2-3 hours before bed. - Follow up with PCP if symptoms persist. #Opaque ring surrounding left and right irises patient states he has had rings since and his siblings have the same rings. Not likely due to arcus juvenilis as lipid panel was within normal limits. Possibly normal variant due to no occular complaints and family history. #Asthma - Duoneb 1 amp q4hr PRN #DVT prophylaxis - Heparin 5000U SQ BID - SCDs Disposition: Awaiting pre and post O2 test results, plan for discharge to home.
--- NOTE | 2016-09-21 14:20 | PN ---
Teaching Attending Note Name of Resident: Dale aLy ATTENDING PHYSICIAN STATEMENT I saw and evaluated the patient. I reviewed the resident's note and discussed the case with the resident. I agree with the resident's findings and plan as documented. SUBJECTIVE: no abd pain , no fever or chills. started to walk with PT this am, when he developed SOB, and could not finish. he was placed on 1.5 L of O2 without checking Pulse Ox. At time of evaluation he denies any SOb ,and states he has base line SOB with ambulation . complained of difficulty swallowing steak x 2 yrs . no chocking. OBJECTIVE: NAD Cv : RRR lungs: CTAb ext : no edema Abd : soft, NT, ND , voluntary guarding , no rebound tenderness, minimal TTP in RLQ and RUQ . NL BS ASSESSMENT AND PLAN: 66 y/o man with h/o Hep C, recurrent SBO, Asthma , appendectomy who presented with abd pain and was found to have SBO 1- SBO : resolved now . has benign abd exam . - tolerated diet - Ct scan with no tumors - blood cx neg , will dc zosyn 2- Weight loss, consider malignancy. last colonoscopy was done 2 yrs ago, never had PSA or JANELLE. has a h/o smoking , cxray with no masses - CT abd /pelvis with contrast with no masses - need outpt CT chest and JANELLE, PSA - no evidence of hyperthyroidism 3- SOB with ambulation, likely deconditioning. no events on monitor at time of event. pre-post ambulation pulse ox demonstrated no need for O2 with ambulation. has copd changes on CT scan. withh/o smoking contributing clear lungs on exam , I don't suspect edema or PNA 4-dysphagia . speech and swallow eval done. regular with thins dc home with surgical f/u . f/u with PCP VNS services
--- NOTE | 2016-09-21 14:56 | PN ---
Progress Note (short form) - Note Progress Note: feels better tolerating diet Vital Signs Period Temp Pulse Resp BP Sys/Monsalve Pulse Ox Last 24 Hr 98.0 F-98.0 F 48-110 18-20 114-118/65-70 92-95 cor-rrr lungs clear abd soft,nt ext no edema CBC, BMP 09/21/16 06:11 09/21/16 06:11 Microbiology 09/19/16 09:43 Blood - Peripheral Venous Blood Culture - Preliminary NO GROWTH OBTAINED AFTER 48 HOURS, INCUBATION TO CONTINUE FOR 3 DAYS. 09/19/16 09:43 Blood - Peripheral Venous Blood Culture - Preliminary NO GROWTH OBTAINED AFTER 48 HOURS, INCUBATION TO CONTINUE FOR 3 DAYS. 09/19/16 10:04 Urine - Urine Clean Catch Urine Culture - Final Contaminated: Please Repeat HIV negative a/p Distal SBO resolving dc zosyn, cultures negative copd weight loss please call back if needed
--- NOTE | 2016-09-21 17:51 | DS ---
Physical Exam: SUBJECTIVE: Patient seen and examined at bedside. No new complaints. No overnight events. Abdominal pain has improved and had a bowel movement. Denies CP,MORENO, SOB, abd.pain, N/V. OBJECTIVE: Vital Signs Period Temp Pulse Resp BP Sys/Monsalve Pulse Ox Last 24 Hr 98.0 F-98.2 F 6-110 18-20 117-118/65-70 92-95 PHYSICAL EXAM GENERAL: AAOx3 , NAD HEAD:NC/AT EYES: PERRL, extraocular movements intact, sclera anicteric, conjunctiva clear. ENT: moist mucous membranes. NECK: supple. LUNGS: Diminished BS bilat. no wheezes, no crackles, no accessory muscle use. HEART: RRR, S1, S2 without murmur, rub or gallop. ABDOMEN: Soft, mild periumbilical tenderness, nondistended, normoactive bowel sounds, no guarding, no rebound, no hepatosplenomegaly, no masses. EXTREMITIES: 2+ pulses, warm, well-perfused, no edema. NEUROLOGICAL: Cranial nerves II through XII grossly intact. Normal speech, gait not observed. PSYCH: Normal mood, normal affect. SKIN: Warm, dry, normal turgor, no rashes or lesions noted. LABS Laboratory Results - last 24 hr 09/21/16 09/21/16 06:11 06:11 WBC 4.9 RBC 4.31 Hgb 11.6 L Hct 35.4 MCV 82.1 MCHC 32.7 RDW 15.4 Plt Count 175 MPV 8.3 Neutrophils % 36.2 L Lymphocytes % 55.0 H Monocytes % 7.8 Eosinophils % 0.7 Basophils % 0.3 Sodium 140 Potassium 4.1 Chloride 107 Carbon Dioxide 26 Anion Gap 7 L BUN 13 Creatinine 1.1 Creat Clearance w eGFR > 60 Random Glucose 73 L Calcium 8.1 L Total Bilirubin 0.5 D AST 17 ALT 12 Alkaline Phosphatase 38 L Total Protein 5.8 L Albumin 2.9 L TSH 0.82 HOSPITAL COURSE: 66 yo M with history of Hep C, SBO s/p resection presented with one day history of abdominal pain. CT abdomen reveled small bowel obstruction. He was evaluated by surgery and no surgical intervention was indicated. Patient was initially kept NPO and given IVF. Patient abdominal pain improved clinically and was able to tolerated diet and have BM. Evaluated by PT he had SOB with ambulating. Pre and post showed no need for home O2. Dysphagia evaluated by speech and swallow recommended regular diet with thin liquids. He weight loss is concerning for malignancy CT abd/pelvis reveled no masses will need further work up as outpatient (CT chest, JANELLE, PSA). Patient is stable for discharge home with VNS services. Date of Admission:09/19/16 Date of Discharge: 09/21/16 Minutes to complete discharge: 45 Discharge Summary Reason For Visit: SMALL BOWEL OBSTRUCTION Current Active Problems DION (acute kidney injury) (Acute) DVT prophylaxis (Acute) Lactic acidemia (Acute) Small bowel obstruction (Acute) Asthma (Chronic) Condition: Stable - Instructions Diet, Activity, Other Instructions: Your small bowel obstruction has resolved. Please follow up the Dr. Wilmer HOLLAND in one week. Please follow with PCP-Brandy Lubin in one week. Your recent weight loss is of concern. We recommend that you follow up with your primary for further screening for possible malignancy . A Visiting Nurse has been scheduled to come to your home tomorrow 09/22/16. If symptoms of abdominal pain increase or fever/chills develop please return to ED. Resume a regular diet with thin liquids. Increase activity as tolerated. Referrals: Omid Gardner MD [Staff Physician] - Brandy Lubin [Primary Care Provider] - Johny Guillen MD [Staff Physician] - Disposition: HOME - Home Medications Comprehensive Discharge Medication List: Ambulatory Orders Albuterol Sulfate Inhaler - [Ventolin HFA Inhaler -] 2 inh PO Q6H 09/19/16 Problem List - Problems (1) Small bowel obstruction Code(s): K56.69 - OTHER INTESTINAL OBSTRUCTION (2) DION (acute kidney injury) (3) Lactic acidemia (4) Asthma (5) DVT prophylaxis This patient is new to me today: No Emergency Visit: Yes ED Registration Date: 09/19/16 Care time: The patient presented to the Emergency Department on the above date and was hospitalized for further evaluation of their emergent condition. Critical Care patient: No - Discharge Referral Referred to [facility] No
[2016-09-21 19:54] VITALS: BP 117/75; PULSE 61; TEMP 98
== END 2016-09-21 18:51 | disposition home or self-care (01) | DRG 389 ==
LOC: JER 09:16 → JERBED 12:38 → J4W 18:00
PROVIDERS: ADMIT Internal Medicine; ATTEND Internal Medicine
DX: K56.69 Other intestinal obstruction (principal); N17.9 Acute kidney failure, unspecified; Z68.1 Body mass index [BMI] 19.9 or less, adult; E87.2 Acidosis; J45.909 Unspecified asthma, uncomplicated; R63.4 Abnormal weight loss; Z87.891 Personal history of nicotine dependence; R13.10 Dysphagia, unspecified
CPT/HCPCS: 36415; 71010-TC; 74176-TC; 74177-TC; 80048; 80053; 80061; 81003; 81015; 82550; 82553; 83605; 83690; 83721; 83735; 84100; 84443; 84484; 85025; 85610; 85730; 86850; 86900; 86901; 87040; 87086; 87389; 93005; 93010; 94640; 94761; 97116-GP; 97162-PG; 99284-25; J1644

== ENCOUNTER 2016-09-28 10:15 | Emergency (ER) | payer OTHER ==
[2016-09-28] MEDS ORDERED: ALBUTEROL SO4 2.5/IPRATROPIUM 0.5 INH SOL 3 ML VIAL.NEB. NEB ONE ×2 (10:27)
[2016-09-28] MEDS ORDERED: predniSONE 20 MG TABLET (UD) PO ONE (10:27)
[2016-09-28 10:44] VITALS: TEMP 97.5; BMI 15.3
--- NOTE | 2016-09-28 10:44 | PDOC ---
History of Present Illness - General History Source: Patient, EMS, Family Exam Limitations: No Limitations - History of Present Illness Initial Comments: 09/28/16 10:59 The patient is a 66 year old male brought via EMS and presenting with his daughter from home, with a significant past medical history of COPD, hepatitis C and who presents to the emergency department with shortness of breath onset this morning. The daughter states that the patient uses an albuterol pump but is not on any home oxygen. The daughter states that the patient has cut down significantly on his smoking habit and usually smokes only 1 cigarette a day and uses the nicotine patches. The patient was recently admitted to the hospital on 09/19/2016 for small bowel obstruction. He was discharged on 2016 after improvement of symptoms. The patient denies chest pain, headache and dizziness. Denies fever, chills, nausea, vomit, diarrhea and constipation.. Allergies: None Past surgical history: Small bowel obstruction, resection and appendectomy Social history: Current smoker. No alcohol or drug use reported <Sky Foss - Last Filed: 09/28/16 12:20> - General History Source: Patient, Family, Old Records Exam Limitations: No Limitations <Nazaroi Pierce - Last Filed: 09/28/16 16:41> <Rush Yung - Last Filed: 09/28/16 18:02> - General Stated Complaint: SOB Time Seen by Provider: 09/28/16 10:25 Past History <Sky Foss - Last Filed: 09/28/16 12:20> - Past Medical History Asthma: Yes GI Disorders: Yes (sbo) Liver Disease: Yes (HEPATITIS C) - Surgical History Abdominal Surgery: Yes (EXP.LAP FOR SBO; RESECTION) Appendectomy: Yes - Immunization History Immunization Up to Date: Yes - Psycho/Social/Smoking Cessation Hx Anxiety: No Suicidal Ideation: No Smoking Status: Yes Smoking History: Former smoker Have you smoked in the past 12 months: No Number of Cigarettes Smoked Daily: 5 If you are a former smoker, when did you quit?: 1.5yrs ago Information on smoking cessation initiated: Yes 'Breaking Loose' booklet given: 09/28/16 Hx Alcohol Use: No Drug/Substance Use Hx: No Substance Use Type: None Hx Substance Use Treatment: No <Nazario Pierce - Last Filed: 09/28/16 16:41> <Rush Yung - Last Filed: 09/28/16 18:02> - Past Medical History Allergies/Adverse Reactions: Allergies Allergy/AdvReac Type Severity Reaction Status Date / Time No Known Allergies Allergy Verified 09/19/16 09:24 Home Medications: Ambulatory Orders Albuterol Sulfate [Proair Respiclick] 1 puff IH BID 09/28/16 Ipratropium/Albuterol Sulfate [Combivent Respimat Inhal [place]] 1 puff IH BID Review of Systems - Review of Systems Able to Perform ROS?: Yes Comments:: 09/28/16 11:00 GENERAL/CONSTITUTIONAL: No fever or chills. No weakness. HEAD, EYES, EARS, NOSE AND THROAT: No change in vision. No ear pain or discharge. No sore throat. CARDIOVASCULAR: (+) Shortness of breath. No chest pain RESPIRATORY: No cough, wheezing, or hemoptysis. GASTROINTESTINAL: No nausea, vomiting, diarrhea or constipation. GENITOURINARY: No dysuria, frequency, or change in urination. MUSCULOSKELETAL: No joint or muscle swelling or pain. No neck or back pain. SKIN: No rash NEUROLOGIC: No headache, vertigo, loss of consciousness, or change in strength/ sensation. ENDOCRINE: No increased thirst. No abnormal weight change HEMATOLOGIC/LYMPHATIC: No anemia, easy bleeding, or history of blood clots. ALLERGIC/IMMUNOLOGIC: No hives or skin allergy. <Sky Foss - Last Filed: 09/28/16 12:20> *Physical Exam - Vital Signs Last Vital Signs Temp Pulse Resp BP Pulse Ox 97.5 F L 102 H 24 136/100 94 L 09/28/16 10:35 09/28/16 10:35 09/28/16 10:35 09/28/16 10:35 09/28/16 10:35 - Physical Exam Comments: 09/28/16 11:00 GENERAL: (+) Skinny appearing. Awake, alert, and fully oriented HEAD: No signs of trauma, normocephalic, atraumatic EYES: PERRLA, EOMI, sclera anicteric, conjunctiva clear ENT: Auricles normal inspection, hearing grossly normal, nares patent, oropharynx clear without exudates. Moist mucosa NECK: Normal ROM, supple, no lymphadenopathy, JVD, or masses LUNGS: (+) Wheezing diffusely, coughing profusely. HEART: Regular rate and rhythm, normal S1 and S2, no murmurs, rubs or gallops, peripheral pulses normal and equal bilaterally. ABDOMEN: Soft, nontender, normoactive bowel sounds. No guarding, no rebound. No masses EXTREMITIES: Normal inspection, Normal range of motion, no edema. No clubbing or cyanosis. NEUROLOGICAL: Cranial nerves II through XII grossly intact. Normal speech, normal gait, no focal sensorimotor deficits SKIN: Warm, Dry, normal turgor, no rashes or lesions noted. <Sky Foss - Last Filed: 09/28/16 12:20> - Vital Signs Last Vital Signs Temp Pulse Resp BP Pulse Ox 97.5 F L 102 H 24 136/100 94 L 09/28/16 10:35 09/28/16 10:35 09/28/16 10:35 09/28/16 10:35 09/28/16 10:35 <Nazario Pierce - Last Filed: 09/28/16 16:41> - Vital Signs Last Vital Signs Temp Pulse Resp BP Pulse Ox 97.5 F L 89 20 146/75 99 09/28/16 10:35 09/28/16 10:43 09/28/16 10:43 09/28/16 10:43 09/28/16 12:00 <Rush Yung - Last Filed: 09/28/16 18:02> Heart Score/ECG Review #1 ECG reviewed & interpreted by me at: 10:30 09/28/16 10:45 NSR 111, no std/kaiser, normal axis, normal intervals, biatrial enlargement, QTC 435 msec <Nazario Pierce - Last Filed: 09/28/16 16:41> ED Treatment Course - LABORATORY CBC & Chemistry Diagram: 09/28/16 11:40 09/28/16 11:40 - RADIOLOGY Radiograph Interpretation: 09/28/16 12:17 Chest X-Ray Reviewed by: Dr. Sohail Odell Impression: No acute pathology. No significant change. <Sky Foss - Last Filed: 09/28/16 12:20> - LABORATORY CBC & Chemistry Diagram: 09/28/16 11:40 09/28/16 11:40 - RADIOLOGY Radiology Studies Ordered: Category Date Time Status CHEST X-RAY PORTABLE* [RAD] Stat Radiology 09/28/16 10:27 Ordered <Nazario Pierce - Last Filed: 09/28/16 16:41> - LABORATORY CBC & Chemistry Diagram: 09/28/16 11:40 09/28/16 11:40 - ADDITIONAL ORDERS Additional order review: Laboratory Results 09/28/16 09/28/16 11:40 11:40 INR 1.15 H PTT (Actin FS) 33.4 Sodium 140 Potassium 4.0 Chloride 107 Carbon Dioxide 23 Anion Gap 10 BUN 19 H D Creatinine 1.1 Creat Clearance w eGFR > 60 Random Glucose 94 D Calcium 9.4 Total Bilirubin 0.5 AST 14 L ALT 14 Alkaline Phosphatase 48 D Creatine Kinase 96 Troponin I < 0.02 B-Natriuretic Peptide 31.51 Total Protein 7.9 D Albumin 4.1 D 09/28/16 11:40 RBC 4.93 MCV 83.0 MCHC 32.6 RDW 16.5 H MPV 8.0 Neutrophils % 75.9 D Lymphocytes % 18.0 D Monocytes % 5.2 Eosinophils % 0.3 Basophils % 0.6 - Medications Given in the ED: ED Medications Discontinued Medications Generic Name Dose Route Start Last Admin Trade Name Freq PRN Reason Stop Dose Admin Albuterol Sulfate 1 amp 09/28/16 11:16 09/28/16 10:55 Ventolin 0.083% Nebulizer Soln - NEB 09/28/16 11:17 1 amp ONCE ONE Administration Albuterol/Ipratropium 3 amp 09/28/16 10:27 09/28/16 10:50 Duoneb - NEB 09/28/16 10:28 3 amp ONCE ONE Administration Magnesium Sulfate 2 gm 09/28/16 11:16 09/28/16 11:22 Magnesium Sulfate IVPB 09/28/16 11:17 2 gm ONCE ONE Administration Prednisone 40 mg 09/28/16 10:27 09/28/16 11:22 Deltasone - PO 09/28/16 10:28 40 mg ONCE ONE Administration <Rush Yung - Last Filed: 09/28/16 18:02> Medical Decision Making - Medical Decision Making 09/28/16 10:44 A portion of this note was documented by scribe services under my direction. I have reviewed the details of the note, within reason, and agree with the documentation with the following case summary and management plan written by me. Patient treated in the ED. Nursing notes are reviewed and incorporated into the medical decision-making. Vital signs reviewed. Peripheral IV access obtained by the nurse, laboratory studies are drawn and sent, reviewed and interpreted by myself. Vital Signs Temp Pulse Resp BP Pulse Ox 97.5 F L 102 H 24 136/100 94 L 09/28/16 10:35 09/28/16 10:35 09/28/16 10:35 09/28/16 10:35 09/28/16 10:35 66 year old male with past medical history of hepatitis C, small bowel structures status post resection 2013 presents with shortness of breath since yesterday night. The patient was recently admitted for bowel obstruction which resolved medically. Since then, he denied any abdominal pain, nausea, vomiting. States since yesterday, potentially with the weather changes, the patient's been having some wheezing and frequent coughing. Denies phlegm production, fevers, chills. Reports some shortness of breath. Has been using his albuterol pump with some relief. The patient is likely in COPD exacerbation. We'll obtain a chest x-ray to rule out pneumonia. Labs, chest x-ray, nebs, steroids and reassess. 09/28/16 16:41 Chest xray reviewed. No acute findings. CBC, BMP 09/28/16 11:40 09/28/16 11:40 CMP Sodium 140 mmol/L (136-145) 09/28/16 11:40 Potassium 4.0 mmol/L (3.5-5.1) 09/28/16 11:40 Chloride 107 mmol/L (98-107) 09/28/16 11:40 Carbon Dioxide 23 mmol/L (21-32) 09/28/16 11:40 Anion Gap 10 (8-16) 09/28/16 11:40 BUN 19 mg/dL (7-18) H D 09/28/16 11:40 Creatinine 1.1 mg/dL (0.7-1.3) 09/28/16 11:40 Creat Clearance w eGFR > 60 (>60) 09/28/16 11:40 Random Glucose 94 mg/dL (74-106) D 09/28/16 11:40 Calcium 9.4 mg/dL (8.5-10.1) 09/28/16 11:40 Total Bilirubin 0.5 mg/dL (0.2-1.0) 09/28/16 11:40 AST 14 U/L (15-37) L 09/28/16 11:40 ALT 14 U/L (12-78) 09/28/16 11:40 Alkaline Phosphatase 48 U/L (45-117) D 09/28/16 11:40 Creatine Kinase 96 IU/L (39-308) 09/28/16 11:40 Troponin I < 0.02 ng/ml (0.00-0.05) 09/28/16 11:40 B-Natriuretic Peptide 31.51 pg/ml (5-125) 09/28/16 11:40 Total Protein 7.9 g/dl (6.4-8.2) D 09/28/16 11:40 Albumin 4.1 g/dl (3.4-5.0) D 09/28/16 11:40 Pt's labs reviewed. Pt has been increasingly more tachycardic despite having improved air sounds. This was attributed initially to the albuterol. however, after observing the patient for two hours, the patient remained tachycardic. CTA to r/o PE was ordered. Upon returning from the CT scan, pt's HR now improved to high 90s and patient more comfortable. Will observe. If CT is negative and pt remains asymptomatic, pt can be discharged. However, if remains tachycardic, should admit. <Nazario Pierce - Last Filed: 09/28/16 16:41> *DC/Admit/Observation/Transfer - Attestations Scribe Attestion: 09/28/16 11:01 Documentation prepared by Sky Foss, acting as esthetician and manager medical spa for Nazario Pierce MD <Sky Foss - Last Filed: 09/28/16 12:20> - Discharge Dispostion Admit: No <Nazario Pierce - Last Filed: 09/28/16 16:41> <Rush Yung - Last Filed: 09/28/16 18:02> Diagnosis at time of Disposition: COPD exacerbation - Discharge Dispostion Disposition: HOME Condition at time of disposition: Stable - Referrals Referrals: Brandy Lubin [Primary Care Provider] - - Patient Instructions Printed Discharge Instructions: DI for Chronic Obstructive Pulmonary Disease Additional Instructions: Please take 2 puffs of albuterol every 4 hours as needed for wheezing. Please take 40 mg prednisone daily for the next 4 days. Take the claritin daily as needed for allergies. If your breathing worsens, please return to the ER for further evaluation.
[2016-09-28] MEDS ORDERED: MAGNESIUM SULF 50% (8.12 MEQ/2 ML-1 GM VIAL) IVPB ONE (11:16)
[2016-09-28] MEDS ORDERED: ALBUTEROL SO4 0.083% IH SOL 2.5 MG/3 ML VIAL.NEB. NEB ONE (11:16)
[2016-09-28] MEDS ORDERED: MAGNESIUM SULF 50% (8.12 MEQ/2 ML-1 GM VIAL) ONE (11:24)
[2016-09-28] MEDS ORDERED: predniSONE 20 MG TABLET (UD) ONE (11:24)
[2016-09-28 11:50] LABS: BASOPHIL 0.6 % (0-2.0); EOSINOPHIL 0.3 % (0-4.5); MCHC 32.6 g/dl (32.0-35.9); NEUTROPHILS 75.9 % (42.8-82.8); PLATELET COUNT 217 K/MM3 (134-434); RDW 16.5 % (11.9-15.9); WHITE BLOOD COUNT 10.3 K/mm3 (4.0-10.0)
[2016-09-28 12:12] LABS: ALBUMIN 4.1 g/dl (3.4-5.0); ANION GAP 10 (8-16); CALCIUM 9.4 mg/dL (8.5-10.1); CO2 23 mmol/L (21-32); COCKROFT - GAULT 40.41; CREATININE 1.1 mg/dL (0.7-1.3); GLUCOSE,RANDOM 94 mg/dL (74-106); SGOT/AST 14 U/L (15-37); SGPT/ALT 14 U/L (12-78)
[2016-09-28 12:13] LABS: BILIRUBIN,TOTAL 0.5 mg/dL (0.2-1.0); TOT PROT 7.9 g/dl (6.4-8.2)
[2016-09-28 12:16] LABS: ALK PHOS 48 U/L (45-117); TROPONIN I < 0.02 ng/ml (0.00-0.05)
[2016-09-28 12:18] LABS: INR 1.15 (0.82-1.09); PROTHROMBIN TIME (PATIENT) 12.7 SEC (9.98-11.88)
[2016-09-28 12:21] LABS: ACTIVATED PTT 33.4 SECONDS (26.9-34.4)
--- NOTE | 2016-09-28 13:08 | EKG ---
Test Reason : Blood Pressure : / mmHG Vent. Rate : 111 BPM Atrial Rate : 111 BPM P-R Int : 134 ms QRS Dur : 072 ms QT Int : 320 ms P-R-T Axes : 085 077 077 degrees QTc Int : 435 ms SINUS TACHYCARDIA BIATRIAL ENLARGEMENT ABNORMAL ECG WHEN COMPARED WITH ECG OF 19-SEP-2016 16:50, VENT. RATE HAS INCREASED BY 43 BPM NON-SPECIFIC CHANGE IN ST SEGMENT IN INFERIOR LEADS Confirmed by STEPHAN LOJA MD ([id number]) on 09/28/2016 1:08:42 PM Referred By: Confirmed By:STEPHAN LOJA MD
--- NOTE | 2016-09-28 18:04 | PDOC ---
*Physical Exam - Vital Signs Last Vital Signs Temp Pulse Resp BP Pulse Ox 97.5 F L 89 20 146/75 99 09/28/16 10:35 09/28/16 10:43 09/28/16 10:43 09/28/16 10:43 09/28/16 12:00 - Physical Exam Comments: 09/28/16 18:03 Patient endorsed to me by Dr. Pierce. Patient 66-year-old male with history of COPD who presented with shortness of breath and tachycardia. Patient received continuous nebulizer therapy with Combivent, steroids and magnesium sulfate IV. Patient underwent a CT of chest with IV contrast which reveals no evidence of pulmonary embolism or infiltrate. ED Treatment Course - LABORATORY CBC & Chemistry Diagram: 09/28/16 11:40 09/28/16 11:40 - ADDITIONAL ORDERS Additional order review: Laboratory Results 09/28/16 09/28/16 11:40 11:40 INR 1.15 H PTT (Actin FS) 33.4 Sodium 140 Potassium 4.0 Chloride 107 Carbon Dioxide 23 Anion Gap 10 BUN 19 H D Creatinine 1.1 Creat Clearance w eGFR > 60 Random Glucose 94 D Calcium 9.4 Total Bilirubin 0.5 AST 14 L ALT 14 Alkaline Phosphatase 48 D Creatine Kinase 96 Troponin I < 0.02 B-Natriuretic Peptide 31.51 Total Protein 7.9 D Albumin 4.1 D 09/28/16 11:40 RBC 4.93 MCV 83.0 MCHC 32.6 RDW 16.5 H MPV 8.0 Neutrophils % 75.9 D Lymphocytes % 18.0 D Monocytes % 5.2 Eosinophils % 0.3 Basophils % 0.6 - Medications Given in the ED: ED Medications Discontinued Medications Generic Name Dose Route Start Last Admin Trade Name Freq PRN Reason Stop Dose Admin Albuterol Sulfate 1 amp 09/28/16 11:16 09/28/16 10:55 Ventolin 0.083% Nebulizer Soln - NEB 09/28/16 11:17 1 amp ONCE ONE Administration Albuterol/Ipratropium 3 amp 09/28/16 10:27 09/28/16 10:50 Duoneb - NEB 09/28/16 10:28 3 amp ONCE ONE Administration Magnesium Sulfate 2 gm 09/28/16 11:16 09/28/16 11:22 Magnesium Sulfate IVPB 09/28/16 11:17 2 gm ONCE ONE Administration Prednisone 40 mg 09/28/16 10:27 09/28/16 11:22 Deltasone - PO 09/28/16 10:28 40 mg ONCE ONE Administration *DC/Admit/Observation/Transfer Diagnosis at time of Disposition: COPD exacerbation - Discharge Dispostion Disposition: HOME Condition at time of disposition: Stable - Referrals Referrals: Brandy Lubin [Primary Care Provider] - - Patient Instructions Printed Discharge Instructions: DI for Chronic Obstructive Pulmonary Disease Additional Instructions: Please take 2 puffs of albuterol every 4 hours as needed for wheezing. Please take 40 mg prednisone daily for the next 4 days. Take the claritin daily as needed for allergies. If your breathing worsens, please return to the ER for further evaluation. - Post Discharge Activity
[2016-09-28 18:39] VITALS: BP 112/74; PULSE 78
== END 2016-09-28 18:39 | disposition home or self-care (01) ==
LOC: JER 10:15
PROC: 3E0F7GC Introduction of Other Therapeutic Substance into Respiratory Tract, Via Natural or Artificial Opening (ICD-10-PCS; principal; 2016-09-28)
PROC: 3E033GC Introduction of Other Therapeutic Substance into Peripheral Vein, Percutaneous Approach (ICD-10-PCS; 2016-09-28)
DX: J44.9 Chronic obstructive pulmonary disease, unspecified (principal); B19.20 Unspecified viral hepatitis C without hepatic coma; Z72.0 Tobacco use
CPT/HCPCS: 36415; 71010-TC; 71275-TC; 80053; 82550; 83880; 84484; 85025; 85610; 85730; 93005; 93010; 99284-25

== ENCOUNTER 2016-11-01 21:39 | Inpatient (IN) | payer OTHER ==
--- NOTE | 2016-11-01 22:45 | PDOC ---
History of Present Illness - General Chief Complaint: Pain, Acute Stated Complaint: PAIN Time Seen by Provider: 11/01/16 22:33 History Source: Patient Exam Limitations: Other (poor insight into his own medical history) - History of Present Illness Initial Comments: 66 yo M history asthma, multiple SBOs presents with diffuse abd pain, N/V. No fevers. He states that he has lost significant amount of weight over the past few months. He states he has had no appetite. Denies urinary symptoms. +Prior similar symptoms in the past. Past History - Past Medical History Allergies/Adverse Reactions: Allergies Allergy/AdvReac Type Severity Reaction Status Date / Time No Known Allergies Allergy Verified 11/01/16 22:04 Home Medications: Ambulatory Orders Albuterol Sulfate Inhaler - [Ventolin HFA Inhaler -] 1 - 2 inh PO Q4H #1 inhaler 09/28/16 Ipratropium/Albuterol Sulfate [Combivent Respimat Inhal [place]] 1 puff IH BID Asthma: Yes GI Disorders: Yes (sbo) Liver Disease: Yes (HEPATITIS C) - Surgical History Abdominal Surgery: Yes (EXP.LAP FOR SBO; RESECTION) Appendectomy: Yes - Immunization History Immunization Up to Date: Yes - Psycho/Social/Smoking Cessation Hx Anxiety: No Suicidal Ideation: No Smoking Status: Yes Smoking History: Former smoker Have you smoked in the past 12 months: No Number of Cigarettes Smoked Daily: 5 If you are a former smoker, when did you quit?: 1.5yrs ago Information on smoking cessation initiated: No 'Breaking Loose' booklet given: 09/28/16 Hx Alcohol Use: No Drug/Substance Use Hx: No Substance Use Type: None Hx Substance Use Treatment: No Review of Systems - Review of Systems Able to Perform ROS?: Yes Comments:: GENERAL/CONSTITUTIONAL: No fever or chills. No weakness. HEAD, EYES, EARS, NOSE AND THROAT: No change in vision. No ear pain or discharge. No sore throat. CARDIOVASCULAR: No chest pain. +Shortness of breath. RESPIRATORY: +Cough and wheezing. No hemoptysis. GASTROINTESTINAL: +Abd pain, nausea. No vomiting, diarrhea or constipation. GENITOURINARY: No dysuria, frequency, or change in urination. MUSCULOSKELETAL: No joint or muscle swelling or pain. No neck or back pain. SKIN: No rash NEUROLOGIC: No headache, vertigo, loss of consciousness, or change in strength/ sensation. ENDOCRINE: No increased thirst. No abnormal weight change. HEMATOLOGIC/LYMPHATIC: No anemia, easy bleeding, or history of blood clots. ALLERGIC/IMMUNOLOGIC: No hives or skin allergy. *Physical Exam - Vital Signs Last Vital Signs Temp Pulse Resp BP Pulse Ox 98.7 F 90 16 127/100 94 L 11/01/16 22:04 11/01/16 22:04 11/01/16 22:04 11/01/16 22:04 11/01/16 22:04 ED Treatment Course - LABORATORY CBC & Chemistry Diagram: 11/01/16 22:45 11/01/16 22:45 Medical Decision Making - Medical Decision Making 11/02/16 03:[address] Galeano at shift change. Awaiting reading of CT to r/o SBO. Clinical suspicion is high based on prior medical history at this hospital. *DC/Admit/Observation/Transfer Diagnosis at time of Disposition: Small bowel obstruction
[2016-11-01] MEDS ORDERED: SODIUM CHLORIDE 1,000 ML IV STA (22:46)
[2016-11-01] MEDS ORDERED: ONDANSETRON 4 MG/2 ML VIAL IVPUSH ONE (22:48)
[2016-11-01] MEDS ORDERED: morphine CARPU-JECT 4 MG/1 ML DISP.SYRIN IVPUSH ONE (22:48)
[2016-11-01] MEDS ORDERED: morphine CARPU-JECT 4 MG/1 ML DISP.SYRIN ONE (22:58)
[2016-11-01] MEDS ORDERED: ALBUTEROL SO4 2.5/IPRATROPIUM 0.5 INH SOL 3 ML VIAL.NEB. NEB ONE (22:59)
[2016-11-01] MEDS ORDERED: ONDANSETRON 4 MG/2 ML VIAL ONE (22:59)
[2016-11-01] MEDS: ALBUTEROL SO4 2.5/IPRATROPIUM 0.5 INH SOL 3 ML VIAL.NEB. NEB SCH ×3 (23:05→23:36)
[2016-11-01 23:14] LABS: BASOPHIL 0.5 % (0-2.0); EOSINOPHIL 0.7 % (0-4.5); MCH 26.5 pg (25.7-33.7); MCHC 32.2 g/dl (32.0-35.9); MEAN CELL VOLUME 82.2 fl (80-96); MEAN PLT VOLUME 8.5 fl (7.5-11.1); NEUTROPHILS 68.7 % (42.8-82.8); PLATELET COUNT 208 K/MM3 (134-434); RDW 16.3 % (11.9-15.9); WHITE BLOOD COUNT 6.7 K/mm3 (4.0-10.0)
[2016-11-01 23:27] LABS: INR 1.12 (0.82-1.09); PROTHROMBIN TIME (PATIENT) 12.3 SEC (9.98-11.88)
[2016-11-01 23:37] LABS: ALBUMIN 4.3 g/dl (3.4-5.0); ANION GAP 13 (8-16); BILIRUBIN,TOTAL 0.5 mg/dL (0.2-1.0); CALCIUM 10.2 mg/dL (8.5-10.1); CO2 25 mmol/L (21-32); GLUCOSE,RANDOM 102 mg/dL (74-106); SGOT/AST 14 U/L (15-37); SGPT/ALT 14 U/L (12-78); TOT PROT 8.6 g/dl (6.4-8.2)
[2016-11-01 23:38] LABS: ALK PHOS 66 U/L (45-117)
[2016-11-02] MEDS ORDERED: HYDROmorphone HCL CARPU-JECT 1 MG/1 ML DISP.SYRIN ONE ×2 (01:19→06:10)
[2016-11-02] MEDS ORDERED: HYDROmorphone HCL CARPU-JECT 1 MG/1 ML DISP.SYRIN IVPUSH ONE (01:25)
--- NOTE | 2016-11-02 04:35 | PDOC ---
*Physical Exam - Vital Signs Last Vital Signs Temp Pulse Resp BP Pulse Ox 98.7 F 90 16 127/100 94 L 11/01/16 22:04 11/01/16 22:04 11/01/16 22:04 11/01/16 22:04 11/01/16 22:04 <SheltonCecilia - Last Filed: 11/02/16 04:56> - Vital Signs Last Vital Signs Temp Pulse Resp BP Pulse Ox 98.7 F 90 16 127/100 94 L 11/01/16 22:04 11/01/16 22:04 11/01/16 22:04 11/01/16 22:04 11/01/16 22:04 <Sky Galeano - Last Filed: 11/02/16 19:31> Heart Score/ECG Review - ECG Impressions Comment:: 11/02/16 04:56 NSR @95bpm T wave abnormality, consider anterior ischemia Abnormal ECG <Cecilia Peoples - Last Filed: 11/02/16 04:56> ED Treatment Course - LABORATORY CBC & Chemistry Diagram: 11/01/16 22:45 11/01/16 22:45 - ADDITIONAL ORDERS Additional order review: Laboratory Results 11/01/16 11/01/16 23:00 22:45 INR 1.12 Sodium 145 Potassium 4.1 Chloride 107 Carbon Dioxide 25 Anion Gap 13 BUN 11 D Creatinine 1.0 Creat Clearance w eGFR > 60 Random Glucose 102 Calcium 10.2 H Total Bilirubin 0.5 AST 14 L ALT 14 Alkaline Phosphatase 66 D Total Protein 8.6 H Albumin 4.3 Lipase 75 11/01/16 22:45 RBC 5.22 MCV 82.2 MCHC 32.2 RDW 16.3 H MPV 8.5 Neutrophils % 68.7 Lymphocytes % 22.8 D Monocytes % 7.3 Eosinophils % 0.7 D Basophils % 0.5 - RADIOLOGY Radiograph Interpretation: 11/02/16 04:37 EXAM: CT abdomen and pelvis with contrastFINDINGS: Emphysema and mild basilar fibrosis is noted The visualized cardiac chambers are normal size and configuration. Normal liver, gallbladder, pancreas, spleen, adrenal glands and kidneys. There is a high-grade small bowel obstruction with small bowel dilated up to 4.0 cm. No abscess or free air. Transition point is only partially seen near a right lower quadrant anastomosis suggesting anastomotic stricture. There is trace free fluid. No colonic inflammation. There is no aortic aneurysm. There is no significant retroperitoneal lymphadenopathy. Appendix not identified. The urinary bladder and prostate gland are normal. There is no significant pelvic lymphadenopathy. Fracture is noted. IMPRESSION: High-grade small bowel obstruction, possibly due to anastomotic stricture, with minimal free fluid but no abscess or free air. COPD. Cachexia. - Medications Given in the ED: ED Medications Discontinued Medications Generic Name Dose Route Start Last Admin Trade Name Tanya PRN Reason Stop Dose Admin Albuterol/Ipratropium 1 amp 11/01/16 23:00 11/01/16 23:36 Duoneb - NEB 11/01/16 23:31 1 amp Q15M EMILY Administration Hydromorphone HCl 0.5 mg 11/02/16 01:25 11/02/16 01:25 Dilaudid Injection - IVPUSH 11/02/16 01:26 0.5 mg NOW ONE Administration Sodium Chloride 1,000 mls @ 1,000 mls/hr 11/01/16 22:46 11/01/16 23:05 Normal Saline - IV 11/01/16 23:45 1,000 mls/hr ASDIR STA Administration Morphine Sulfate 6 mg 11/01/16 22:48 11/01/16 23:12 Morphine Injection - IVPUSH 11/01/16 22:49 6 mg ONCE ONE Administration Ondansetron HCl 4 mg 11/01/16 22:48 11/01/16 23:05 Zofran Injection IVPUSH 11/01/16 22:49 4 mg ONCE ONE Administration <Cecilia Peoples - Last Filed: 11/02/16 04:56> - LABORATORY CBC & Chemistry Diagram: 11/02/16 07:55 11/02/16 07:55 - ADDITIONAL ORDERS Additional order review: Laboratory Results 11/01/16 11/01/16 23:00 22:45 INR 1.12 Sodium 145 Potassium 4.1 Chloride 107 Carbon Dioxide 25 Anion Gap 13 BUN 11 D Creatinine 1.0 Creat Clearance w eGFR > 60 Random Glucose 102 Calcium 10.2 H Total Bilirubin 0.5 AST 14 L ALT 14 Alkaline Phosphatase 66 D Total Protein 8.6 H Albumin 4.3 Lipase 75 11/01/16 22:45 RBC 5.22 MCV 82.2 MCHC 32.2 RDW 16.3 H MPV 8.5 Neutrophils % 68.7 Lymphocytes % 22.8 D Monocytes % 7.3 Eosinophils % 0.7 D Basophils % 0.5 - Medications Given in the ED: ED Medications Discontinued Medications Generic Name Dose Route Start Last Admin Trade Name Tanya PRN Reason Stop Dose Admin Albuterol/Ipratropium 1 amp 11/01/16 23:00 11/01/16 23:36 Duoneb - NEB 11/01/16 23:31 1 amp Q15M EMILY Administration Hydromorphone HCl 0.5 mg 11/02/16 01:25 11/02/16 01:25 Dilaudid Injection - IVPUSH 11/02/16 01:26 0.5 mg NOW ONE Administration Sodium Chloride 1,000 mls @ 1,000 mls/hr 11/01/16 22:46 11/01/16 23:05 Normal Saline - IV 11/01/16 23:45 1,000 mls/hr ASDIR STA Administration Morphine Sulfate 6 mg 11/01/16 22:48 11/01/16 23:12 Morphine Injection - IVPUSH 11/01/16 22:49 6 mg ONCE ONE Administration Ondansetron HCl 4 mg 11/01/16 22:48 11/01/16 23:05 Zofran Injection IVPUSH 11/01/16 22:49 4 mg ONCE ONE Administration <Sky Galeano - Last Filed: 11/02/16 19:31> *DC/Admit/Observation/Transfer <Cecilia Peoples - Last Filed: 11/02/16 04:56> - Discharge Dispostion Admit: Yes <Sky Galeano - Last Filed: 11/02/16 19:31> Diagnosis at time of Disposition: Small bowel obstruction - Referrals
--- NOTE | 2016-11-02 05:29 | HP ---
CHIEF COMPLAINT: Abdominal Pain, Nausea/Vomiting PCP: Dr. Brandy Lubin HISTORY OF PRESENT ILLNESS: This is a 66 y/o male with a significant medical history Asthma, Hep C ( treated , remission), Multiple SBOs. Who presents to the ED with diffuse abdominal pain , N/V- bilious x 1 day. Patient reports 20lb weight loss for several months which he attributes to poor appetite. Patient reports last colonoscopy 2 years ago- normal. Patient denies fever, chills, cough, dizziness, CP, diarrhea, constipation, melena, hematuria, dysuria ER course was notable for: (1) CT Abdomen- High grade SBO with sbowel dilated 4.0cm, minimal free fluid, no abscess or free air (2) (3) Recent Travel: None PAST MEDICAL HISTORY: See HPI PAST SURGICAL HISTORY: Exp Lap- SBO Resection Appendectomy Social History: Smoking: Former Alcohol: Denies Drugs: Denies Lives alone, independent Family History: Non-Contributory Allergies No Known Allergies Allergy (Verified 11/01/16 22:04) HOME MEDICATIONS: Home Medications Medication Instructions Recorded Albuterol Sulfate Inhaler - 1 - 2 inh PO Q4H #1 inhaler 09/28/16 [Ventolin HFA Inhaler -] Ipratropium/Albuterol Sulfate 1 puff IH BID 09/28/16 [Combivent Respimat Inhal [place]] REVIEW OF SYSTEMS CONSTITUTIONAL: loss of appetite, weight change Absent: fever, chills, diaphoresis, generalized weakness, malaise HEENT: Absent: rhinorrhea, nasal congestion, throat pain, throat swelling, difficulty swallowing, mouth swelling, ear pain, eye pain, visual changes CARDIOVASCULAR: Absent: chest pain, syncope, palpitations, irregular heart rate, lightheadedness , peripheral edema RESPIRATORY: Absent: cough, shortness of breath, dyspnea with exertion, orthopnea, wheezing, stridor, hemoptysis GASTROINTESTINAL: abdominal pain, nausea, vomiting Absent: abdominal distension, diarrhea, constipation, melena, hematochezia GENITOURINARY: Absent: dysuria, frequency, urgency, hesitancy, hematuria, flank pain, genital pain MUSCULOSKELETAL: Absent: myalgia, arthralgia, joint swelling, back pain, neck pain SKIN: Absent: rash, itching, pallor HEMATOLOGIC/IMMUNOLOGIC: Absent: easy bleeding, easy bruising, lymphadenopathy, frequent infections ENDOCRINE: Absent: unexplained weight gain, unexplained weight loss, heat intolerance, cold intolerance NEUROLOGIC: Absent: headache, focal weakness or paresthesias, dizziness, unsteady gait, seizure, mental status changes, bladder or bowel incontinence PSYCHIATRIC: Absent: anxiety, depression, suicidal or homicidal ideation, hallucinations. PHYSICAL EXAMINATION Vital Signs - 24 hr 11/02/16 04:46 Pulse Rate [ 93 H Right] Respiratory 16 Rate Blood Pressure 124/89 [Left Arm] O2 Sat by Pulse 100 Oximetry (%) GENERAL: Cachetic, awake, alert, and fully oriented, in mild distress. HEAD: Normal with no signs of trauma. EYES: Pupils equal, round and reactive to light, extraocular movements intact, sclera anicteric, conjunctiva clear. No lid lag. EARS, NOSE, THROAT: Ears normal, nares patent, oropharynx clear without exudates. Dry mucous membranes. NECK: Normal range of motion, supple without lymphadenopathy, JVD, or masses. LUNGS: Breath sounds equal, clear to auscultation bilaterally. No wheezes, and no crackles. No accessory muscle use. HEART: Regular rate and rhythm, normal S1 and S2 without murmur, rub or gallop. ABDOMEN: Soft, not distended, no rebound, no masses. No hepatomegaly or splenomegaly. RMQ tenderness, hypoactive bowel sounds, guarding. MUSCULOSKELETAL: Normal range of motion at all joints. No bony deformities or tenderness. No CVA tenderness. UPPER EXTREMITIES: 2+ pulses, warm, well-perfused. No cyanosis. No clubbing. No peripheral edema. LOWER EXTREMITIES: 2+ pulses, warm, well-perfused. No calf tenderness. No peripheral edema. NEUROLOGICAL: Cranial nerves II-XII intact. Normal speech. Gait not observed. PSYCHIATRIC: Cooperative. Good eye contact. Appropriate mood and affect. SKIN: Warm, dry, no rashes or lesions noted, normal capillary refill. Poor turgor, surgical scar to mid-abdomenCT Laboratory Results - last 24 hr 11/01/16 11/01/16 11/01/16 22:45 22:45 23:00 WBC 6.7 D RBC 5.22 Hgb 13.8 Hct 42.9 MCV 82.2 MCHC 32.2 RDW 16.3 H Plt Count 208 MPV 8.5 Neutrophils % 68.7 Lymphocytes % 22.8 D Monocytes % 7.3 Eosinophils % 0.7 D Basophils % 0.5 INR 1.12 Sodium 145 Potassium 4.1 Chloride 107 Carbon Dioxide 25 Anion Gap 13 BUN 11 D Creatinine 1.0 Creat Clearance w eGFR > 60 Random Glucose 102 Calcium 10.2 H Total Bilirubin 0.5 AST 14 L ALT 14 Alkaline Phosphatase 66 D Total Protein 8.6 H Albumin 4.3 Lipase 75 Urine Color Urine Appearance Urine pH Urine Protein Urine Glucose (UA) Urine Ketones Urine Blood Urine Nitrite Urine Bilirubin Urine Urobilinogen Ur Leukocyte Esterase 11/02/16 04:44 WBC RBC Hgb Hct MCV MCHC RDW Plt Count MPV Neutrophils % Lymphocytes % Monocytes % Eosinophils % Basophils % INR Sodium Potassium Chloride Carbon Dioxide Anion Gap BUN Creatinine Creat Clearance w eGFR Random Glucose Calcium Total Bilirubin AST ALT Alkaline Phosphatase Total Protein Albumin Lipase Urine Color Yellow Urine Appearance Clear Urine pH 5.0 D Urine Protein Negative Urine Glucose (UA) Negative Urine Ketones Trace H Urine Blood Negative Urine Nitrite Negative Urine Bilirubin Negative Urine Urobilinogen Negative Ur Leukocyte Esterase Negative ASSESSMENT/PLAN: This is a 66 y/o male with a PMHx of: Asthma, Hep C (treated, in remission, per pt), Multiple SBOs. Who presents to the ED with Abdominal Pain. Admitted to M/S with High-Grade SBO for further evaluation of their emergent condition. Plan: 1 GI: SBO - Likely secondary to adhesions/stricture - CT- abdomen: High grade small bowel obstruction, possibly due to anastomotic stricture, with minimal free fluid but no abscess or free air. COPD, Cachexia - NS fluids, Morphine, Dilaudid, Zofran given in ED - Appreciate Surgical Consult- done by ED attending - Continue IVF - NGT - NPO - Dilaudid prn - Zofran - Lactic Acid in am - Monitor CBC, BMP 2. Asthma - Duonebs - Continue home meds - Monitor Spo2 3. Cachexia - Likely secondary to poor intake vs depression vs immunocompromise vs malignancy - Patient reports testing for HIV on last admission, denies risky behaviors or exposure - HIV screen done on 09/19/16- negative - RD Screen - Consider GI eval - Consider markers for malignancy 4. Hepatitis C - Per patient was treated in the past, now in remission - Monitor LFTs 5. FEN - D51/2NS@42/ml hr - Monitor lytes - NPO 6. DVT Prophylaxis - OOB - SCDs - Lovenox SQ Code Status: Full Code Dispo: Requires Inpatient Care Problem List - Problem (1) Small bowel obstruction Code(s): K56.69 - OTHER INTESTINAL OBSTRUCTION (2) Abdominal pain Code(s): R10.9 - UNSPECIFIED ABDOMINAL PAIN (3) Asthma Code(s): J45.909 - UNSPECIFIED ASTHMA, UNCOMPLICATED Qualifiers: Asthma severity: mild persistent Asthma complication type: uncomplicated Qualified Code(s): J45.30 - Mild persistent asthma, uncomplicated (4) Cachexia Code(s): R64 - [place] (5) Hepatitis C, chronic Code(s): B18.2 - CHRONIC VIRAL HEPATITIS C (6) DVT prophylaxis Code(s): CYR5782 - Visit type - Emergency Visit Emergency Visit: Yes ED Registration Date: 11/02/16 Care time: The patient presented to the Emergency Department on the above date and was hospitalized for further evaluation of their emergent condition. - New Patient This patient is new to me today: Yes Date on this admission: 11/02/16 - Critical Care Critical Care patient: No
[2016-11-02] MEDS ORDERED: DEXTROSE 5%-0.45% SALINE 1,000 ML IV SCH (05:45)
[2016-11-02] MEDS ORDERED: ONDANSETRON 4 MG/2 ML VIAL IVPUSH PRN (06:26)
[2016-11-02] MEDS: HYDROmorphone HCL CARPU-JECT 1 MG/1 ML DISP.SYRIN IVPUSH PRN ×2 (06:31→13:28)
[2016-11-02 06:32] LABS: URINE APPEARANCE CLEAR; URINE BILIRUBIN NEGATIVE (NEGATIVE); URINE BLOOD NEGATIVE (NEGATIVE); URINE COLOR YELLOW; URINE GLUCOSE (UA) NEGATIVE (NEGATIVE); URINE KETONE TRACE (NEGATIVE); URINE LEUK ESTERASE NEGATIVE (NEGATIVE); URINE NITRITE NEGATIVE (NEGATIVE); URINE PROTEIN NEGATIVE (NEGATIVE); URINE UROBILINOGEN NEGATIVE E.U./dl (0.2-1.0)
[2016-11-02] MEDS: DEXTROSE 5%-0.45% SALINE 1,000 ML IV SCH (07:47)
[2016-11-02 08:29] LABS: BASOPHIL 0.3 % (0-2.0); EOSINOPHIL 0.7 % (0-4.5); MCHC 32.6 g/dl (32.0-35.9); MEAN CELL VOLUME 82.7 fl (80-96); MEAN PLT VOLUME 8.6 fl (7.5-11.1); NEUTROPHILS 62.6 % (42.8-82.8); PLATELET COUNT 198 K/MM3 (134-434); RDW 16.3 % (11.9-15.9); WHITE BLOOD COUNT 5.3 K/mm3 (4.0-10.0)
[2016-11-02 09:11] LABS: ANION GAP 9 (8-16); CALCIUM 8.7 mg/dL (8.5-10.1); CO2 27 mmol/L (21-32); GLUCOSE,RANDOM 100 mg/dL (74-106); PHOSPHOROUS 3.4 mg/dL (2.5-4.9)
[2016-11-02] MEDS ORDERED: PATIENT'S OWN MEDICATION (NON-FORMULARY) (Ipratropium/Albuterol Sulfate [Combivent Respima IH SCH (10:00)
--- NOTE | 2016-11-02 11:04 | EKG ---
Test Reason : Blood Pressure : / mmHG Vent. Rate : 095 BPM Atrial Rate : 095 BPM P-R Int : 136 ms QRS Dur : 068 ms QT Int : 342 ms P-R-T Axes : 082 080 077 degrees QTc Int : 429 ms NORMAL SINUS RHYTHM T WAVE ABNORMALITY, CONSIDER ANTERIOR ISCHEMIA ABNORMAL ECG WHEN COMPARED WITH ECG OF 28-SEP-2016 10:27, NO SIGNIFICANT CHANGE WAS FOUND Confirmed by STEPHAN LOJA MD ([id number]) on 11/02/2016 11:03:43 AM Referred By: Confirmed By:STEPHAN LOJA MD
[2016-11-02 16:01] VITALS: BMI 16.3
--- NOTE | 2016-11-02 16:04 | CONSULT ---
Consult Consult Specialty:: Surgery Referred by:: Dalia Reason for Consultation:: Intestinal obstruction. - History of Present Illness Chief Complaint: Abdominal pain and vomiting. - History Source History Provided By: Patient Limitations to Obtaining History: No Limitations - Past Medical History Gastrointestinal: Yes: Other (Hepatitis c, Laparotomy, small bowel reection) - Alcohol/Substance Use Hx Alcohol Use: No - Smoking History Smoking history: Former smoker Have you smoked in the past 12 months: No Aproximately how many cigarettes per day: 5 If you are a former smoker, when did you quit?: 1.5yrs ago - Social History ADL: Independent History of Recent Travel: No Home Medications - Allergies Allergies/Adverse Reactions: Allergies Allergy/AdvReac Type Severity Reaction Status Date / Time No Known Allergies Allergy Verified 11/01/16 22:04 - Home Medications Home Medications: Ambulatory Orders Albuterol Sulfate Inhaler - [Ventolin HFA Inhaler -] 1 - 2 inh PO Q4H #1 inhaler 09/28/16 Ipratropium/Albuterol Sulfate [Combivent Respimat Inhal [place]] 1 puff IH BID Family Disease History - Family Disease History Family Disease History: Diabetes: Sister Physical Exam Vital Signs: Vital Signs Temperature 98.0 F 11/02/16 14:00 Pulse Rate 70 11/02/16 14:00 Respiratory Rate 18 11/02/16 14:00 Blood Pressure 134/64 11/02/16 14:00 O2 Sat by Pulse Oximetry (%) 98 11/02/16 09:00 Gastrointestinal: Yes: Other (Abdomen is not distended but tender , no guarding. ) Labs: CBC, BMP 11/02/16 07:55 11/02/16 07:55 Imaging - Results Cat Scan: Report Reviewed, Image Reviewed Problem List - Problems (1) Bowel obstruction Code(s): K56.60 - UNSPECIFIED INTESTINAL OBSTRUCTION (2) Intestinal obstruction due to adhesions Code(s): K56.5 - INTESTINAL ADHESIONS W OBST (POSTPROCEDURAL) (POSTINFECTION) (3) Hepatitis C, chronic Code(s): B18.2 - CHRONIC VIRAL HEPATITIS C Assessment/Plan Patient has intestinal obstruction, he is infoprmed that he has high grade intestinal obstruction and needs surgery, he is currently refusing. NG tubev is placed, IV fluids. Will repeat abdominal x-ray tomorrow. If not improved will operate.
[2016-11-02] MEDS: HYDROmorphone HCL CARPU-JECT 2 MG/1 ML DISP.SYRIN IVPB PRN (18:06)
[2016-11-03] MEDS: HYDROmorphone HCL CARPU-JECT 2 MG/1 ML DISP.SYRIN IVPB PRN ×4 (06:01→20:57)
[2016-11-03 07:48] LABS: BASOPHIL 0.2 % (0-2.0); EOSINOPHIL 0.9 % (0-4.5); MCH 27.2 pg (25.7-33.7); MCHC 32.7 g/dl (32.0-35.9); MEAN CELL VOLUME 83.1 fl (80-96); MEAN PLT VOLUME 8.6 fl (7.5-11.1); NEUTROPHILS 46.7 % (42.8-82.8); PLATELET COUNT 179 K/MM3 (134-434); RDW 16.2 % (11.9-15.9); WHITE BLOOD COUNT 4.7 K/mm3 (4.0-10.0)
[2016-11-03 07:51] LABS: ALBUMIN 3.2 g/dl (3.4-5.0); ALK PHOS 50 U/L (45-117); ANION GAP 6 (8-16); BILIRUBIN,TOTAL 0.8 mg/dL (0.2-1.0); CALCIUM 8.5 mg/dL (8.5-10.1); CO2 30 mmol/L (21-32); CREATININE 0.9 mg/dL (0.7-1.3); GLUCOSE,RANDOM 95 mg/dL (74-106); SGOT/AST 12 U/L (15-37); SGPT/ALT 9 U/L (12-78); TOT PROT 6.5 g/dl (6.4-8.2)
--- NOTE | 2016-11-03 10:11 | PN ---
Physical Exam: SUBJECTIVE: Patient seen and examined in bed. He states he feels better than yesterday. OBJECTIVE: Vital Signs 3 Period Temp Pulse Resp BP Sys/Monsalve Pulse Ox Last 24 Hr 98.0 F-98.8 F 70-79 16-20 129-145/64-92 98 GENERAL: The patient is awake, alert, and fully oriented, in no acute distress. HEAD: Normal with no signs of trauma. ENT: Ears normal, nares patent, oropharynx clear without exudates, moist mucous membranes. NGT in LUNGS: Breath sounds equal, clear to auscultation bilaterally, no wheezes, no crackles, no accessory muscle use. HEART: Regular rate and rhythm, S1, S2 without murmur, rub or gallop. ABDOMEN: Nondistended, normoactive bowel sounds, no guarding, no rebound, no hepatosplenomegaly, no masses. Diffusely tender. EXTREMITIES: 2+ pulses, warm, well-perfused, no edema. NEUROLOGICAL: Cranial nerves II through XII grossly intact. Normal speech, gait not observed. PSYCH: Normal mood, normal affect. Laboratory Results - last 24 hr 3 11/03/16 11/03/16 06:20 06:20 WBC 4.7 RBC 4.25 Hgb 11.5 L D Hct 35.3 L MCV 83.1 MCHC 32.7 RDW 16.2 H Plt Count 179 MPV 8.6 Neutrophils % 46.7 D Lymphocytes % 34.0 D Monocytes % 18.2 H D Eosinophils % 0.9 Basophils % 0.2 Sodium 142 Potassium 4.0 Chloride 106 Carbon Dioxide 30 Anion Gap 6 L BUN 9 Creatinine 0.9 Creat Clearance w eGFR > 60 Random Glucose 95 Calcium 8.5 Total Bilirubin 0.8 D AST 12 L ALT 9 L D Alkaline Phosphatase 50 D Total Protein 6.5 D Albumin 3.2 L D Active Medications 3 Generic Name Dose Route Start Last Admin Trade Name Freq PRN Reason Stop Dose Admin Albuterol/Ipratropium 1 amp 11/02/16 07:44 Duoneb - NEB Q6H PRN SHORTNESS OF BREATH Hydromorphone HCl 2 mg 11/02/16 17:22 11/03/16 06:01 Dilaudid Injection - IVPB 2 mg Q4H PRN Administration PAIN Dextrose/Sodium Chloride 1,000 mls @ 60 mls/hr 11/02/16 06:07 11/02/16 07:47 D5-1/2ns - IV 60 mls/hr ASDIR EMILY Administration Ondansetron HCl 4 mg 11/02/16 06:26 Zofran Injection IVPUSH Q6H PRN NAUSEA AND/OR VOMITING ASSESSMENT/PLAN: A: 66yo man with history of multiple SBO with revisions. Now with SBO. NGT- 400cc dark draiange. Weight loss of 20-30# over last 6 months. P: 1. SBO from adhesions vs malignancy - NGT->LWS - NPO - Dilaudid 2mg q4h prn - Zofran 4mg q6h prn - AXR read by Jose R- There is no sign of an obstructive bowel pattern at this time. - Surgery Lim following - D5-1/2NS@60 2. Weight loss - Nutrition consult - D5-1/2NS@60 - HIV serology negative 09/20 - never had a colonoscopy, PSA, JANELLE 3. Asthma - well controlled - Duonebs prn 4. F/E/N - D5-1/2NS@60 - replete prn - NPO 5. PPX - OOB Dispo- requires continued inpatient evaluation Visit type - Emergency Visit Emergency Visit: Yes ED Registration Date: 11/02/16 Care time: The patient presented to the Emergency Department on the above date and was hospitalized for further evaluation of their emergent condition. - New Patient This patient is new to me today: Yes Date on this admission: 11/03/16 - Critical Care Critical Care patient: No
[2016-11-03] MEDS: DEXTROSE 5%-0.45% SALINE 1,000 ML IV SCH ×2 (15:52→20:56)
--- NOTE | 2016-11-03 16:39 | EKG ---
Test Reason : Blood Pressure : / mmHG Vent. Rate : 064 BPM Atrial Rate : 064 BPM P-R Int : 138 ms QRS Dur : 078 ms QT Int : 416 ms P-R-T Axes : 070 068 061 degrees QTc Int : 429 ms NORMAL SINUS RHYTHM ST ELEVATION, CONSIDER EARLY REPOLARIZATION Confirmed by MD JEVON, MERRY ([id number]) on 11/03/2016 4:39:12 PM Referred By: NGA VALDEZ Confirmed By:MERRY ESCOTO MD
--- NOTE | 2016-11-03 18:14 | PN ---
Progress Note, Physician - Current Medication List Current Medications: Active Medications Albuterol/Ipratropium (Duoneb -) 1 amp NEB Q6H PRN PRN Reason: SHORTNESS OF BREATH Hydromorphone HCl (Dilaudid Injection -) 2 mg IVPB Q4H PRN PRN Reason: PAIN Last Admin: 11/03/16 15:49 Dose: 2 mg Dextrose/Sodium Chloride (D5-1/2ns -) 1,000 mls @ 60 mls/hr IV ASDIR EMILY Last Admin: 11/03/16 15:52 Dose: Not Given Ondansetron HCl (Zofran Injection) 4 mg IVPUSH Q6H PRN PRN Reason: NAUSEA AND/OR VOMITING - Objective Vital Signs: Vital Signs Temperature 98.8 F 11/03/16 15:31 Pulse Rate 75 11/03/16 15:31 Respiratory Rate 16 11/03/16 15:31 Blood Pressure 123/83 11/03/16 15:31 O2 Sat by Pulse Oximetry (%) 100 11/03/16 09:00 Labs: CBC, BMP 11/03/16 06:20 11/03/16 06:20 INR, PTT INR 1.12 (0.82-1.09) 11/01/16 23:00 Problem List - Problems (1) Bowel obstruction Code(s): K56.60 - UNSPECIFIED INTESTINAL OBSTRUCTION (2) Intestinal obstruction due to adhesions Code(s): K56.5 - INTESTINAL ADHESIONS W OBST (POSTPROCEDURAL) (POSTINFECTION) (3) Hepatitis C, chronic Code(s): B18.2 - CHRONIC VIRAL HEPATITIS C Assessment/Plan Surgery: Patient feels better , has no abdominal pain. Abdomen is soft , not tender, no distention. X-ray shows contrast in colon , with no sign of intestinal obstruction. Will repeat abdominal CT scan tomorrow, then resume feeding , if normal. Improved intestinal obstruction. gastric drainage 600 ml.
[2016-11-04] MEDS: HYDROmorphone HCL CARPU-JECT 2 MG/1 ML DISP.SYRIN IVPB PRN ×2 (00:57→06:56)
[2016-11-04] MEDS: DEXTROSE 5%-0.45% SALINE 1,000 ML IV SCH ×2 (07:58→16:16)
--- NOTE | 2016-11-04 09:17 | PN ---
Physical Exam: SUBJECTIVE: Patient seen and examined at bedside. NGT in place. Feels much better, denies abdominal pain, passing flatus. OBJECTIVE: Vital Signs Period Temp Pulse Resp BP Sys/Monsalve Pulse Ox Last 24 Hr 97.9 F-98.8 F 72-77 16-20 119-132/53-83 GENERAL: The patient is awake, alert, and fully oriented, in no acute distress. Thin, cachectic. LUNGS: Breath sounds equal, clear to auscultation bilaterally, no wheezes, no crackles, no accessory muscle use. HEART: Regular rate and rhythm, S1, S2 without murmur, rub or gallop. ABDOMEN: Soft, nontender, nondistended, normoactive bowel sounds, no guarding, no rebound EXTREMITIES: 2+ pulses, warm, well-perfused, no edema. NEUROLOGICAL: Cranial nerves II through XII grossly intact. Normal speech, gait not observed. Active Medications Generic Name Dose Route Start Last Admin Trade Name Freq PRN Reason Stop Dose Admin Albuterol/Ipratropium 1 amp 11/02/16 07:44 Duoneb - NEB Q6H PRN SHORTNESS OF BREATH Hydromorphone HCl 2 mg 11/02/16 17:22 11/04/16 06:56 Dilaudid Injection - IVPB 2 mg Q4H PRN Administration PAIN Dextrose/Sodium Chloride 1,000 mls @ 60 mls/hr 11/02/16 06:07 11/04/16 07:58 D5-1/2ns - IV Not Given ASDIR EMILY Ondansetron HCl 4 mg 11/02/16 06:26 Zofran Injection IVPUSH Q6H PRN NAUSEA AND/OR VOMITING ASSESSMENT/PLAN 66 year-old male with a significant PMH of multiple SBO requiring surgery x 4. Admitted for acute SBO. SBO --CT shows resolution --seen and evaluated by surgery, no surgical intervention at this time --d/c NGT --trial of clears F/E/N Fluids: D5-1/2NS@60 Electrolytes: replete as indicated Nutrition: clears PT evaluation DVT prophylaxis: Dispo: continues to require inpatient care. Full code. Visit type - Emergency Visit Emergency Visit: Yes ED Registration Date: 11/02/16 Care time: The patient presented to the Emergency Department on the above date and was hospitalized for further evaluation of their emergent condition. - New Patient This patient is new to me today: Yes Date on this admission: 11/05/16 - Critical Care Critical Care patient: No
--- NOTE | 2016-11-04 11:32 | PN ---
Progress Note, Physician - Current Medication List Current Medications: Active Medications Albuterol/Ipratropium (Duoneb -) 1 amp NEB Q6H PRN PRN Reason: SHORTNESS OF BREATH Dextrose/Sodium Chloride (D5-1/2ns -) 1,000 mls @ 60 mls/hr IV ASDIR EMILY Last Admin: 11/04/16 07:58 Dose: Not Given Ondansetron HCl (Zofran Injection) 4 mg IVPUSH Q6H PRN PRN Reason: NAUSEA AND/OR VOMITING - Objective Vital Signs: Vital Signs Temperature 98.4 F 11/04/16 10:00 Pulse Rate 69 11/04/16 10:00 Respiratory Rate 18 11/04/16 10:00 Blood Pressure 128/83 11/04/16 10:00 O2 Sat by Pulse Oximetry (%) 100 11/03/16 09:00 Labs: CBC, BMP 11/03/16 06:20 11/03/16 06:20 INR, PTT INR 1.12 (0.82-1.09) 11/01/16 23:00 Problem List - Problems (1) Bowel obstruction Code(s): K56.60 - UNSPECIFIED INTESTINAL OBSTRUCTION (2) Intestinal obstruction due to adhesions Code(s): K56.5 - INTESTINAL ADHESIONS W OBST (POSTPROCEDURAL) (POSTINFECTION) (3) Hepatitis C, chronic Code(s): B18.2 - CHRONIC VIRAL HEPATITIS C Assessment/Plan Surgery: Abdomen is soft, not tender. CT sca shows improvement in small bowel obstruction , with no dilated small bowel loops. Minimal gastric drainage, 100ml NG tube removed and liquid diet has been ordered. If tolerated , then will progress feeding, and discharge home.
[2016-11-04] MEDS: ACETAMINOPHEN 325 MG TABLET (FP) PO PRN (14:12)
--- NOTE | 2016-11-05 12:35 | PN ---
Progress Note, Physician - Current Medication List Current Medications: Active Medications Acetaminophen (Tylenol -) 650 mg PO Q6H PRN PRN Reason: FEVER OR PAIN Last Admin: 11/04/16 14:12 Dose: 650 mg Albuterol/Ipratropium (Duoneb -) 1 amp NEB Q6H PRN PRN Reason: SHORTNESS OF BREATH Dextrose/Sodium Chloride (D5-1/2ns -) 1,000 mls @ 60 mls/hr IV ASDIR EMILY Last Admin: 11/04/16 16:16 Dose: 60 mls/hr Ondansetron HCl (Zofran Injection) 4 mg IVPUSH Q6H PRN PRN Reason: NAUSEA AND/OR VOMITING - Objective Vital Signs: Vital Signs Temperature 98.4 F 11/05/16 10:00 Pulse Rate 57 L 11/05/16 10:00 Respiratory Rate 18 11/05/16 10:00 Blood Pressure 116/77 11/05/16 10:00 O2 Sat by Pulse Oximetry (%) 100 11/05/16 09:00 Labs: CBC, BMP 11/03/16 06:20 11/03/16 06:20 INR, PTT INR 1.12 (0.82-1.09) 11/01/16 23:00 Problem List - Problems (1) Bowel obstruction Code(s): K56.60 - UNSPECIFIED INTESTINAL OBSTRUCTION (2) Intestinal obstruction due to adhesions Code(s): K56.5 - INTESTINAL ADHESIONS W OBST (POSTPROCEDURAL) (POSTINFECTION) (3) Hepatitis C, chronic Code(s): B18.2 - CHRONIC VIRAL HEPATITIS C Assessment/Plan Patient had abdominal pain yesterday after starting liquid diet. Oral feeding was stopped. Abdomen is not distended, but he still has intermittent abdominal pain. He is tender fically just above and to the left of the umbilicus. CT scan shows contrast in the large intestine, but still has some dilated small bowel loops, suggestive of partial small bowel obstruction. Patient was informed of the dfindings, and his condition, Plan: replace NG tube, with suction . Parenteral nutrition. Follow up abdominal X-rays.
[2016-11-05] MEDS ORDERED: DEXTROSE 5%-0.45% SALINE 1,000 ML IV SCH (12:39)
--- NOTE | 2016-11-05 12:41 | PN ---
Physical Exam: SUBJECTIVE: Patient seen and examined. Abdominal pain recurred yesterday after he ate soup. Has been kept NPO since then but discomfort persists. OBJECTIVE: Vital Signs Period Temp Pulse Resp BP Sys/Monsalve Pulse Ox Last 24 Hr 96.3 F-98.4 F 57-79 18-20 116-131/72-86 100-100 GENERAL: The patient is awake, alert, and fully oriented, in no acute distress. Thin, cachectic. LUNGS: Breath sounds equal, clear to auscultation bilaterally, no wheezes, no crackles, no accessory muscle use. HEART: Regular rate and rhythm, S1, S2 without murmur, rub or gallop. ABDOMEN: Soft, ++tender, +bowel sounds EXTREMITIES: 2+ pulses, warm, well-perfused, no edema. NEUROLOGICAL: Cranial nerves II through XII grossly intact. Normal speech, gait not observed. Active Medications Generic Name Dose Route Start Last Admin Trade Name Freq PRN Reason Stop Dose Admin Acetaminophen 650 mg 11/04/16 13:48 11/04/16 14:12 Tylenol - PO 650 mg Q6H PRN Administration FEVER OR PAIN Albuterol/Ipratropium 1 amp 11/02/16 07:44 Duoneb - NEB Q6H PRN SHORTNESS OF BREATH Amino Acids 1,000 mls @ 42 mls/hr 11/05/16 12:45 Clinimix - IV Q12H EMILY Dextrose/Sodium Chloride 1,000 mls @ 83 mls/hr 11/05/16 12:39 D5-1/2ns - IV ASDIR EMILY Ondansetron HCl 4 mg 11/02/16 06:26 Zofran Injection IVPUSH Q6H PRN NAUSEA AND/OR VOMITING ASSESSMENT/PLAN 66 year-old male with a significant PMH of multiple SBO requiring surgery x 4. Admitted for acute SBO. SBO --11/04 CT showed resolution, but developed abdominal pain yesterday on liquid diet; placed back in NPO status --Dr. Lim suspects partial SBO --re-insert NG tube to LWS --start Clinimix --FAU tomorrow morning F/E/N Fluids: D5-1/2NS@83 Electrolytes: replete as indicated Nutrition: Clinimix PT evaluation DVT prophylaxis: hold chemical prophylaxis as may require surgery; SCDs, oob, ambulation Dispo: continues to require inpatient care. Full code. Visit type - Emergency Visit Emergency Visit: Yes ED Registration Date: 11/02/16 Care time: The patient presented to the Emergency Department on the above date and was hospitalized for further evaluation of their emergent condition. - New Patient This patient is new to me today: Yes Date on this admission: 11/05/16 - Critical Care Critical Care patient: No
[2016-11-05] MEDS ORDERED: AMINO ACIDS 4.25%/D5W 1,000 ML IV SCH ×2 (12:45→13:15)
[2016-11-05] MEDS: ACETAMINOPHEN 325 MG TABLET (FP) PO PRN (12:49)
[2016-11-05] MEDS ORDERED: morphine CARPU-JECT 2 MG/1 ML DISP.SYRIN IVPUSH ONE ×2 (12:51→22:15)
[2016-11-05] MEDS ORDERED: morphine CARPU-JECT 2 MG/1 ML DISP.SYRIN ONE (20:59)
[2016-11-05] MEDS: DEXTROSE 5%-0.45% SALINE 1,000 ML IV SCH (23:35)
[2016-11-05] MEDS ORDERED: morphine CARPU-JECT 2 MG/1 ML DISP.SYRIN IVPUSH PRN (23:42)
[2016-11-05] MEDS ORDERED: TETRACAINE/BENZOCAINE/BUTAMBEN 20 GM SPR TP PRN (23:43)
[2016-11-06 08:06] LABS: ALK PHOS 48 U/L (45-117); PHOSPHOROUS 2.8 mg/dL (2.5-4.9)
[2016-11-06 08:12] LABS: BASOPHIL 0.3 % (0-2.0); MCH 27.1 pg (25.7-33.7); MEAN CELL VOLUME 82.2 fl (80-96); MEAN PLT VOLUME 8.8 fl (7.5-11.1); NEUTROPHILS 53.9 % (42.8-82.8); PLATELET COUNT 200 K/MM3 (134-434); RDW 15.4 % (11.9-15.9); WHITE BLOOD COUNT 5.7 K/mm3 (4.0-10.0)
[2016-11-06 08:14] LABS: ALBUMIN 3.1 g/dl (3.4-5.0); ANION GAP 8 (8-16); BILIRUBIN,TOTAL 0.6 mg/dL (0.2-1.0); CALCIUM 8.5 mg/dL (8.5-10.1); CO2 31 mmol/L (21-32); CREATININE 0.8 mg/dL (0.7-1.3); GLUCOSE,RANDOM 102 mg/dL (74-106); MAGNESIUM 2.1 mg/dL (1.8-2.4); SGOT/AST 11 U/L (15-37); SGPT/ALT 9 U/L (12-78); TOT PROT 6.8 g/dl (6.4-8.2)
--- NOTE | 2016-11-06 13:14 | PN ---
Progress Note (short form) - Note Progress Note: SUBJECTIVE: The patient was seen and examined at the bedside, he reports passing gas about 1 hour ago, he has not had a bowel movement. Improving Abd x-ray NGT output 400cc so far today Current Medications Generic Name Dose Route Start Last Admin Trade Name Tanya PRN Reason Stop Dose Admin Acetaminophen 650 mg 11/04/16 13:48 11/05/16 12:49 Tylenol - PO 650 mg Q6H PRN Administration FEVER OR PAIN Albuterol/Ipratropium 1 amp 11/02/16 07:44 Duoneb - NEB Q6H PRN SHORTNESS OF BREATH Benzocaine/Butamben/Tetracaine HCl 1 spray 11/05/16 23:43 Cetacaine [place] - TP TID PRN SORE THROAT Amino Acids 1,000 mls @ 42 mls/hr 11/05/16 13:15 11/05/16 15:25 Clinimix - IV 42 mls/hr DAILY@1300 EMILY Administration Potassium Chloride 100 mls @ 100 mls/hr 11/06/16 13:00 Potassium Chloride 10 Meq Premix Ivpb - IVPB 11/06/16 14:59 Q60M EMILY Morphine Sulfate 1 mg 11/05/16 23:42 11/05/16 23:55 Morphine Injection - IVPUSH 1 mg Q4H PRN Administration PAIN Ondansetron HCl 4 mg 11/02/16 06:26 Zofran Injection IVPUSH Q6H PRN NAUSEA AND/OR VOMITING OBJECTIVE: Vital Signs Period Temp Pulse Resp BP Sys/Monsalve Pulse Ox Last 24 Hr 98.1 F-98.7 F 60-78 18-20 121-139/83-108 100-100 Physical Exam: General: NAD, A&Ox3 HEENT: NGT with clear output Lungs: CTA bilaterally Heart: RRR, S1S2 Abd: Soft, mildly tender, non-distended. Normoactive bowel sounds Ext: Warm, well-perfused. 2+ DP/PT bilaterally Neuro: CN 2-12 intact CBCD WBC 5.7 K/mm3 (4.0-10.0) 11/06/16 06:00 RBC 4.62 M/mm3 (4.00-5.60) 11/06/16 06:00 Hgb 12.5 GM/dL (11.7-16.9) 11/06/16 06:00 Hct 38.0 % (35.4-49) 11/06/16 06:00 MCV 82.2 fl (80-96) 11/06/16 06:00 MCHC 33.0 g/dl (32.0-35.9) 11/06/16 06:00 RDW 15.4 % (11.9-15.9) 11/06/16 06:00 Plt Count 200 K/MM3 (134-434) 11/06/16 06:00 MPV 8.8 fl (7.5-11.1) 11/06/16 06:00 CMP Sodium 137 mmol/L (136-145) 11/06/16 06:00 Potassium 3.3 mmol/L (3.5-5.1) L 11/06/16 06:00 Chloride 98 mmol/L (98-107) 11/06/16 06:00 Carbon Dioxide 31 mmol/L (21-32) 11/06/16 06:00 Anion Gap 8 (8-16) 11/06/16 06:00 BUN 7 mg/dL (7-18) D 11/06/16 06:00 Creatinine 0.8 mg/dL (0.7-1.3) 11/06/16 06:00 Creat Clearance w eGFR > 60 (>60) 11/06/16 06:00 Random Glucose 102 mg/dL (74-106) 11/06/16 06:00 Calcium 8.5 mg/dL (8.5-10.1) 11/06/16 06:00 Total Bilirubin 0.6 mg/dL (0.2-1.0) D 11/06/16 06:00 AST 11 U/L (15-37) L 11/06/16 06:00 ALT 9 U/L (12-78) L 11/06/16 06:00 Alkaline Phosphatase 48 U/L (45-117) 11/06/16 06:00 Total Protein 6.8 g/dl (6.4-8.2) 11/06/16 06:00 Albumin 3.1 g/dl (3.4-5.0) L 11/06/16 06:00 Assessment: This is a 66 year old male with PMHx of asthma, HCV (treated), multiple sbo requiring surgery, who presented to the ED with diffuse abdominal pain, nausea and vomiting. Plan: 1) BI: SBO - CTAP 11/04 with resolved SBO, however patient developed abdominal pain on liquid diet and was made NPO again. NGT placed back in - Abd X-ray today with a true obstruction not seen - Patient reports passing gas today - Continue NGT to LWS - Continue Clinimix given extended NPO status - Zofran prn nausea/vomiting - Morphin prn pain - F/u surgery reevaluation 2) Pulmonary: Asthma - No active issues - Continue duonebs 3) F/E/N: - On Clinimix - NPO - Hypokalemia: replete 4) Prophylaxis: - Will hold dvt prophylaxis until evaluation from surgery today - SCDs bilaterally 5) Dispo: - Requires continued inpatient care CODE STATUS: FULL CODE Visit type - Emergency Visit Emergency Visit: Yes ED Registration Date: 11/02/16 Care time: The patient presented to the Emergency Department on the above date and was hospitalized for further evaluation of their emergent condition. - New Patient This patient is new to me today: Yes Date on this admission: 11/06/16 - Critical Care Critical Care patient: No
[2016-11-06] MEDS: KCL 10 MEQ IVPB 100 ML IVPB SCH ×3 (14:49→16:26)
[2016-11-06] MEDS ORDERED: POTASSIUM CHLORIDE 20 MEQ in AMINO ACIDS 4.25%/D5W 1,000 ML IVPB SCH (15:45)
--- NOTE | 2016-11-06 17:27 | PN ---
Progress Note, Physician - Current Medication List Current Medications: Active Medications Acetaminophen (Tylenol -) 650 mg PO Q6H PRN PRN Reason: FEVER OR PAIN Last Admin: 11/05/16 12:49 Dose: 650 mg Albuterol/Ipratropium (Duoneb -) 1 amp NEB Q6H PRN PRN Reason: SHORTNESS OF BREATH Benzocaine/Butamben/Tetracaine HCl (Cetacaine [place] -) 1 spray TP TID PRN PRN Reason: SORE THROAT Potassium Chloride 20 meq/ (Amino Acids) 1,010 mls @ 42 mls/hr IVPB DAILY@1300 EMILY Stop: 11/07/16 12:59 Last Admin: 11/06/16 16:22 Dose: 42 mls/hr Morphine Sulfate (Morphine Injection -) 1 mg IVPUSH Q4H PRN PRN Reason: PAIN Last Admin: 11/05/16 23:55 Dose: 1 mg Ondansetron HCl (Zofran Injection) 4 mg IVPUSH Q6H PRN PRN Reason: NAUSEA AND/OR VOMITING - Objective Vital Signs: Vital Signs Temperature 100.0 F H 11/06/16 17:13 Pulse Rate 73 11/06/16 17:13 Respiratory Rate 20 11/06/16 17:13 Blood Pressure 147/94 11/06/16 17:13 O2 Sat by Pulse Oximetry (%) 100 11/06/16 10:35 Labs: CBC, BMP 11/06/16 06:00 11/06/16 06:00 INR, PTT INR 1.12 (0.82-1.09) 11/01/16 23:00 Problem List - Problems (1) Bowel obstruction Code(s): K56.60 - UNSPECIFIED INTESTINAL OBSTRUCTION (2) Intestinal obstruction due to adhesions Code(s): K56.5 - INTESTINAL ADHESIONS W OBST (POSTPROCEDURAL) (POSTINFECTION) (3) Hepatitis C, chronic Code(s): B18.2 - CHRONIC VIRAL HEPATITIS C Assessment/Plan Abdominal x-ray shows no sign of intestinal obstruction , NG drainage minimal. Will D/C NG tube , sips of water tomorrow. If tolerated will resume diet later. ? Improving small bowel obstruction.
[2016-11-07 08:42] LABS: ALBUMIN 3.3 g/dl (3.4-5.0); ALK PHOS 51 U/L (45-117); ANION GAP 9 (8-16); BILIRUBIN,TOTAL 0.6 mg/dL (0.2-1.0); CALCIUM 9.1 mg/dL (8.5-10.1); CO2 28 mmol/L (21-32); CREATININE 0.9 mg/dL (0.7-1.3); GLUCOSE,RANDOM 89 mg/dL (74-106); SGOT/AST 13 U/L (15-37); SGPT/ALT 11 U/L (12-78); TOT PROT 7.4 g/dl (6.4-8.2)
[2016-11-07] MEDS: ALBUTEROL SO4 2.5/IPRATROPIUM 0.5 INH SOL 3 ML VIAL.NEB. NEB PRN (10:38)
--- NOTE | 2016-11-07 11:27 | PN ---
Progress Note (short form) - Note Progress Note: SUBJECTIVE: The patient was seen and examined at the bedside, NGT removed yesterday. Patient states he is tolerating his diet. He reports passing gas, but has not had a bowel movement. Current Medications Generic Name Dose Route Start Last Admin Trade Name Freq PRN Reason Stop Dose Admin Acetaminophen 650 mg 11/04/16 13:48 11/05/16 12:49 Tylenol - PO 650 mg Q6H PRN Administration FEVER OR PAIN Albuterol/Ipratropium 1 amp 11/02/16 07:44 11/07/16 10:38 Duoneb - NEB 1 amp Q6H PRN Administration SHORTNESS OF BREATH Benzocaine/Butamben/Tetracaine HCl 1 spray 11/05/16 23:43 Cetacaine [place] - TP TID PRN SORE THROAT Potassium Chloride 20 meq/ 1,010 mls @ 42 mls/hr 11/06/16 15:45 11/06/16 16:22 Amino Acids IVPB 11/07/16 12:59 42 mls/hr DAILY@1300 EMILY Administration Morphine Sulfate 1 mg 11/05/16 23:42 11/05/16 23:55 Morphine Injection - IVPUSH 1 mg Q4H PRN Administration PAIN Ondansetron HCl 4 mg 11/02/16 06:26 Zofran Injection IVPUSH Q6H PRN NAUSEA AND/OR VOMITING OBJECTIVE: Vital Signs Period Temp Pulse Resp BP Sys/Monsalve Pulse Ox Last 24 Hr 97.8 F-100.0 F 73-84 16-20 109-147/75-94 100 Physical Exam: General: NAD, A&Ox3 Lungs: CTA bilaterally Heart: RRR, S1S2 Abd: Soft, mildly tender, non-distended. Normoactive bowel sounds Ext: Warm, well-perfused. 2+ DP/PT bilaterally Neuro: CN 2-12 intact CBCD WBC 5.7 K/mm3 (4.0-10.0) 11/06/16 06:00 RBC 4.62 M/mm3 (4.00-5.60) 11/06/16 06:00 Hgb 12.5 GM/dL (11.7-16.9) 11/06/16 06:00 Hct 38.0 % (35.4-49) 11/06/16 06:00 MCV 82.2 fl (80-96) 11/06/16 06:00 MCHC 33.0 g/dl (32.0-35.9) 11/06/16 06:00 RDW 15.4 % (11.9-15.9) 11/06/16 06:00 Plt Count 200 K/MM3 (134-434) 11/06/16 06:00 MPV 8.8 fl (7.5-11.1) 11/06/16 06:00 CMP Sodium 137 mmol/L (136-145) 11/07/16 06:10 Potassium 3.7 mmol/L (3.5-5.1) 11/07/16 06:10 Chloride 100 mmol/L (98-107) 11/07/16 06:10 Carbon Dioxide 28 mmol/L (21-32) 11/07/16 06:10 Anion Gap 9 (8-16) 11/07/16 06:10 BUN 12 mg/dL (7-18) D 11/07/16 06:10 Creatinine 0.9 mg/dL (0.7-1.3) 11/07/16 06:10 Creat Clearance w eGFR > 60 (>60) 11/07/16 06:10 Random Glucose 89 mg/dL (74-106) 11/07/16 06:10 Calcium 9.1 mg/dL (8.5-10.1) 11/07/16 06:10 Total Bilirubin 0.6 mg/dL (0.2-1.0) 11/07/16 06:10 AST 13 U/L (15-37) L 11/07/16 06:10 ALT 11 U/L (12-78) L D 11/07/16 06:10 Alkaline Phosphatase 51 U/L (45-117) 11/07/16 06:10 Total Protein 7.4 g/dl (6.4-8.2) 11/07/16 06:10 Albumin 3.3 g/dl (3.4-5.0) L 11/07/16 06:10 Assessment: This is a 66 year old male with PMHx of asthma, HCV (treated), multiple sbo requiring surgery, who presented to the ED with diffuse abdominal pain, nausea and vomiting. Plan: 1) BI: SBO - Resolving - Patient reports passing gas today - NGT removed yesterday - Continue Clinimix until patient tolerating po - Zofran prn nausea/vomiting - Morphin prn pain - Appreciate surgery reevaluation 2) Pulmonary: Asthma - No active issues - Continue duonebs 3) F/E/N: - On Clinimix - NPO - Hypokalemia: resolved 4) Prophylaxis: - Will hold dvt prophylaxis until evaluation from surgery today - SCDs bilaterally 5) Dispo: - Requires continued inpatient care CODE STATUS: FULL CODE Visit type - Emergency Visit Emergency Visit: Yes ED Registration Date: 11/02/16 Care time: The patient presented to the Emergency Department on the above date and was hospitalized for further evaluation of their emergent condition. - New Patient This patient is new to me today: No - Critical Care Critical Care patient: No
--- NOTE | 2016-11-07 12:32 | PN ---
Progress Note, Physician - Current Medication List Current Medications: Active Medications Acetaminophen (Tylenol -) 650 mg PO Q6H PRN PRN Reason: FEVER OR PAIN Last Admin: 11/05/16 12:49 Dose: 650 mg Albuterol/Ipratropium (Duoneb -) 1 amp NEB Q6H PRN PRN Reason: SHORTNESS OF BREATH Last Admin: 11/07/16 10:38 Dose: 1 amp Benzocaine/Butamben/Tetracaine HCl (Cetacaine [place] -) 1 spray TP TID PRN PRN Reason: SORE THROAT Potassium Chloride 20 meq/ (Amino Acids) 1,010 mls @ 42 mls/hr IVPB DAILY@1300 EMILY Stop: 11/07/16 12:59 Last Admin: 11/06/16 16:22 Dose: 42 mls/hr Morphine Sulfate (Morphine Injection -) 1 mg IVPUSH Q4H PRN PRN Reason: PAIN Last Admin: 11/05/16 23:55 Dose: 1 mg Ondansetron HCl (Zofran Injection) 4 mg IVPUSH Q6H PRN PRN Reason: NAUSEA AND/OR VOMITING - Objective Vital Signs: Vital Signs Temperature 97.8 F 11/07/16 08:20 Pulse Rate 84 11/07/16 08:20 Respiratory Rate 18 11/07/16 08:20 Blood Pressure 109/75 11/07/16 08:20 O2 Sat by Pulse Oximetry (%) 100 11/06/16 20:43 Labs: CBC, BMP 11/06/16 06:00 11/07/16 06:10 INR, PTT INR 1.12 (0.82-1.09) 11/01/16 23:00 Problem List - Problems (1) Bowel obstruction Code(s): K56.60 - UNSPECIFIED INTESTINAL OBSTRUCTION (2) Intestinal obstruction due to adhesions Code(s): K56.5 - INTESTINAL ADHESIONS W OBST (POSTPROCEDURAL) (POSTINFECTION) (3) Hepatitis C, chronic Code(s): B18.2 - CHRONIC VIRAL HEPATITIS C Assessment/Plan Patient is comfortable. Abdomen is soft , not tender. Has no abdominal pain. WBC is normal. Continue liquids. Discharge when diet is tolerated.
--- NOTE | 2016-11-08 09:07 | PN ---
Progress Note (short form) - Note Progress Note: SUBJECTIVE: The patient was seen and examined at the bedside, he is tolerating his clear liquid diet well. He reports having a liquid/soft bowel movement yesterday evening. He reports passing gas today. He states he is still hungry Current Medications Generic Name Dose Route Start Last Admin Trade Name Freq PRN Reason Stop Dose Admin Acetaminophen 650 mg 11/04/16 13:48 11/05/16 12:49 Tylenol - PO 650 mg Q6H PRN Administration FEVER OR PAIN Albuterol/Ipratropium 1 amp 11/02/16 07:44 11/07/16 10:38 Duoneb - NEB 1 amp Q6H PRN Administration SHORTNESS OF BREATH Benzocaine/Butamben/Tetracaine HCl 1 spray 11/05/16 23:43 Cetacaine [place] - TP TID PRN SORE THROAT Morphine Sulfate 1 mg 11/05/16 23:42 11/05/16 23:55 Morphine Injection - IVPUSH 1 mg Q4H PRN Administration PAIN Ondansetron HCl 4 mg 11/02/16 06:26 Zofran Injection IVPUSH Q6H PRN NAUSEA AND/OR VOMITING OBJECTIVE: Vital Signs Period Temp Pulse Resp BP Sys/Monsalve Pulse Ox Last 24 Hr 97.6 F-98.8 F 65-94 18-18 94-118/49-82 99 Physical Exam: General: NAD, A&Ox3 Lungs: CTA bilaterally Heart: RRR, S1S2 Abd: Soft, mildly tender, non-distended. Normoactive bowel sounds Ext: Warm, well-perfused. 2+ DP/PT bilaterally Neuro: CN 2-12 intact CBCD WBC 5.7 K/mm3 (4.0-10.0) 11/06/16 06:00 RBC 4.62 M/mm3 (4.00-5.60) 11/06/16 06:00 Hgb 12.5 GM/dL (11.7-16.9) 11/06/16 06:00 Hct 38.0 % (35.4-49) 11/06/16 06:00 MCV 82.2 fl (80-96) 11/06/16 06:00 MCHC 33.0 g/dl (32.0-35.9) 11/06/16 06:00 RDW 15.4 % (11.9-15.9) 11/06/16 06:00 Plt Count 200 K/MM3 (134-434) 11/06/16 06:00 MPV 8.8 fl (7.5-11.1) 11/06/16 06:00 CMP Sodium 137 mmol/L (136-145) 11/07/16 06:10 Potassium 3.7 mmol/L (3.5-5.1) 11/07/16 06:10 Chloride 100 mmol/L (98-107) 11/07/16 06:10 Carbon Dioxide 28 mmol/L (21-32) 11/07/16 06:10 Anion Gap 9 (8-16) 11/07/16 06:10 BUN 12 mg/dL (7-18) D 11/07/16 06:10 Creatinine 0.9 mg/dL (0.7-1.3) 11/07/16 06:10 Creat Clearance w eGFR > 60 (>60) 11/07/16 06:10 Random Glucose 89 mg/dL (74-106) 11/07/16 06:10 Calcium 9.1 mg/dL (8.5-10.1) 11/07/16 06:10 Total Bilirubin 0.6 mg/dL (0.2-1.0) 11/07/16 06:10 AST 13 U/L (15-37) L 11/07/16 06:10 ALT 11 U/L (12-78) L D 11/07/16 06:10 Alkaline Phosphatase 51 U/L (45-117) 11/07/16 06:10 Total Protein 7.4 g/dl (6.4-8.2) 11/07/16 06:10 Albumin 3.3 g/dl (3.4-5.0) L 11/07/16 06:10 Assessment: This is a 66 year old male with PMHx of asthma, HCV (treated), multiple sbo requiring surgery, who presented to the ED with diffuse abdominal pain, nausea and vomiting. Plan: 1) BI: SBO - Resolving - Patient reports passing gas today, had liquid bowel movement yesterday - Continue Clinimix until patient tolerating po - Zofran prn nausea/vomiting - Morphin prn pain - Appreciate surgery reevaluation 2) Pulmonary: Asthma - No active issues - Continue duonebs 3) F/E/N: - Discontinue Clinimix as patient tolerating po - Clear liquid diet: advance per surgery 4) Prophylaxis: - Heparin 5,000u sq bid - SCDs bilaterally 5) Dispo: - Requires continued inpatient care CODE STATUS: FULL CODE Visit type - Emergency Visit Emergency Visit: Yes ED Registration Date: 11/02/16 Care time: The patient presented to the Emergency Department on the above date and was hospitalized for further evaluation of their emergent condition. - New Patient This patient is new to me today: No - Critical Care Critical Care patient: No
[2016-11-08] MEDS: HEPARIN NA (PORCINE) 5,000 UNITS/ML 1ML VIAL SQ SCH ×2 (10:16→21:17)
[2016-11-08] MEDS: ALBUTEROL SO4 2.5/IPRATROPIUM 0.5 INH SOL 3 ML VIAL.NEB. NEB PRN (11:10)
[2016-11-09 08:34] LABS: ALK PHOS 42 U/L (45-117); ANION GAP 9 (8-16); BILIRUBIN,TOTAL 0.6 mg/dL (0.2-1.0); CALCIUM 8.6 mg/dL (8.5-10.1); CO2 29 mmol/L (21-32); CREATININE 0.8 mg/dL (0.7-1.3); GLUCOSE,RANDOM 82 mg/dL (74-106); SGOT/AST 14 U/L (15-37); SGPT/ALT 11 U/L (12-78); TOT PROT 6.4 g/dl (6.4-8.2)
--- NOTE | 2016-11-09 09:03 | PN ---
Progress Note, Physician - Current Medication List Current Medications: Active Medications Acetaminophen (Tylenol -) 650 mg PO Q6H PRN PRN Reason: FEVER OR PAIN Last Admin: 11/05/16 12:49 Dose: 650 mg Albuterol/Ipratropium (Duoneb -) 1 amp NEB Q6H PRN PRN Reason: SHORTNESS OF BREATH Last Admin: 11/08/16 11:10 Dose: 1 amp Benzocaine/Butamben/Tetracaine HCl (Cetacaine [place] -) 1 spray TP TID PRN PRN Reason: SORE THROAT Heparin Sodium (Porcine) (Heparin -) 5,000 unit SQ BID EMILY Last Admin: 11/08/16 21:17 Dose: 5,000 unit Ondansetron HCl (Zofran Injection) 4 mg IVPUSH Q6H PRN PRN Reason: NAUSEA AND/OR VOMITING - Objective Vital Signs: Vital Signs Temperature 97.5 F L 11/09/16 06:00 Pulse Rate 79 11/09/16 06:00 Respiratory Rate 18 11/09/16 06:00 Blood Pressure 96/67 11/09/16 06:00 O2 Sat by Pulse Oximetry (%) 97 11/08/16 21:00 Labs: CBC, BMP 11/06/16 06:00 11/09/16 06:00 INR, PTT INR 1.12 (0.82-1.09) 11/01/16 23:00 Problem List - Problems (1) Bowel obstruction Code(s): K56.60 - UNSPECIFIED INTESTINAL OBSTRUCTION (2) Intestinal obstruction due to adhesions Code(s): K56.5 - INTESTINAL ADHESIONS W OBST (POSTPROCEDURAL) (POSTINFECTION) (3) Hepatitis C, chronic Code(s): B18.2 - CHRONIC VIRAL HEPATITIS C Assessment/Plan Surgery: Patient does not have abdominal pain, He is tolerating diet. Abdomen is soft, not distended, not tender. Denies any abdominal pain. Has had bowel movement. Impression : Small bowel obstruction relieved. Can be discharged. Patient is explianed to seek immediate medical attention , if symptoms recur.
[2016-11-09] MEDS: HEPARIN NA (PORCINE) 5,000 UNITS/ML 1ML VIAL SQ SCH (10:01)
--- NOTE | 2016-11-09 11:58 | DS ---
Physical Exam: SUBJECTIVE: Patient seen and examined at bedside. Feels well. Tolerating food. Had a soft BM with some formed stool. OBJECTIVE: Vital Signs Period Temp Pulse Resp BP Sys/Monsalve Pulse Ox Last 24 Hr 97.5 F-98.3 F 66-79 18-18 96-104/64-71 97 PHYSICAL EXAM GENERAL: The patient is awake, alert, and fully oriented, in no acute distress. Thin, cachectic. LUNGS: Breath sounds equal, clear to auscultation bilaterally, no wheezes, no crackles, no accessory muscle use. HEART: Regular rate and rhythm, S1, S2 without murmur, rub or gallop. ABDOMEN: Soft, not tender, not distended, +bowel sounds EXTREMITIES: 2+ pulses, warm, well-perfused, no edema. NEUROLOGICAL: Cranial nerves II through XII grossly intact. Normal speech, gait not observed. CBCD WBC 5.7 K/mm3 (4.0-10.0) 11/06/16 06:00 RBC 4.62 M/mm3 (4.00-5.60) 11/06/16 06:00 Hgb 12.5 GM/dL (11.7-16.9) 11/06/16 06:00 Hct 38.0 % (35.4-49) 11/06/16 06:00 MCV 82.2 fl (80-96) 11/06/16 06:00 MCHC 33.0 g/dl (32.0-35.9) 11/06/16 06:00 RDW 15.4 % (11.9-15.9) 11/06/16 06:00 Plt Count 200 K/MM3 (134-434) 11/06/16 06:00 MPV 8.8 fl (7.5-11.1) 11/06/16 06:00 CMP Sodium 139 mmol/L (136-145) 11/09/16 06:00 Potassium 4.0 mmol/L (3.5-5.1) 11/09/16 06:00 Chloride 101 mmol/L (98-107) 11/09/16 06:00 Carbon Dioxide 29 mmol/L (21-32) 11/09/16 06:00 Anion Gap 9 (8-16) 11/09/16 06:00 BUN 6 mg/dL (7-18) L D 11/09/16 06:00 Creatinine 0.8 mg/dL (0.7-1.3) 11/09/16 06:00 Creat Clearance w eGFR > 60 (>60) 11/09/16 06:00 Calcium 8.6 mg/dL (8.5-10.1) 11/09/16 06:00 Total Bilirubin 0.6 mg/dL (0.2-1.0) 11/09/16 06:00 AST 14 U/L (15-37) L 11/09/16 06:00 ALT 11 U/L (12-78) L 11/09/16 06:00 Alkaline Phosphatase 42 U/L (45-117) L 11/09/16 06:00 Total Protein 6.4 g/dl (6.4-8.2) 11/09/16 06:00 Albumin 3.0 g/dl (3.4-5.0) L 11/09/16 06:00 Laboratory Results - last 24 hr 11/09/16 06:00 Sodium 139 Potassium 4.0 Chloride 101 Carbon Dioxide 29 Anion Gap 9 BUN 6 L D Creatinine 0.8 Creat Clearance w eGFR > 60 Random Glucose 82 Calcium 8.6 Total Bilirubin 0.6 AST 14 L ALT 11 L Alkaline Phosphatase 42 L Total Protein 6.4 Albumin 3.0 L HOSPITAL COURSE: Date of Admission:11/02/16 Date of Discharge: 11/09/16 66 year-old male with a significant PMH of multiple SBO requiring surgery x 4. Admitted for a high-grade, partial SBO. Patient was medically managed with NG tube, NPO, and IV fluids. Serial imaging showed resolution of the SBO and the patient improved clinically over the course of his hospital stay. At the time of discharge he was tolerating food and had several bowel movements. Patient was followed by surgeon Dr. Lim, but surgical intervention was not required. Patient has severe protein-calorie malnutrition in the setting of poor appetite secondary to his h/o SBOs. He has experienced a 20lb weight loss over 2-3 months. He has a BMI 16.3. On physical exam he was cachectic with temporal wasting/hollowing, and muscle/fat loss in all extremities. Minutes to complete discharge: 35 Discharge Summary Reason For Visit: SMALL BOWEL OBSTRUCTION Current Active Problems Cachexia (Acute) Hepatitis C, chronic (Acute) Intestinal obstruction due to adhesions (Acute) Small bowel obstruction (Acute) Condition: Improved - Instructions Diet, Activity, Other Instructions: Advance your diet slowly. Only eat those foods that agree with you. Supplement your meals with Ensure. Return to the emergency department for any new or worsening symptoms. Referrals: Brandy Lubin [Primary Care Provider] - Disposition: HOME - Home Medications Comprehensive Discharge Medication List: Ambulatory Orders Albuterol Sulfate Inhaler - [Ventolin HFA Inhaler -] 1 - 2 inh PO Q4H #1 inhaler 09/28/16 Ipratropium/Albuterol Sulfate [Combivent Respimat Inhal [place]] 1 puff IH BID Lactose-Reduced Food [Ensure Enlive] 237 ml PO TID #90 liquid 11/09/16 This patient is new to me today: No Emergency Visit: Yes ED Registration Date: 11/02/16 Care time: The patient presented to the Emergency Department on the above date and was hospitalized for further evaluation of their emergent condition. Critical Care patient: No - Discharge Referral Referred to [facility] No
[2016-11-09 12:37] VITALS: TEMP 97.8
[2016-11-09 15:12] VITALS: BP 97/63; PULSE 82
== END 2016-11-09 18:45 | disposition home or self-care (01) | DRG 388 ==
LOC: JER 21:39 → JERBED 11-02 04:35 → UNDOADMIN 11-02 04:52 → JERBED 11-02 04:52 → J8W 11-02 08:20
PROVIDERS: ADMIT Internal Medicine; ATTEND Nurse Practitioner Acute Care
PROC: 0D9670Z Drainage of Stomach with Drainage Device, Via Natural or Artificial Opening (ICD-10-PCS; principal; 2016-11-02)
DX: K56.5 Intestinal adhesions [bands] with obstruction (postinfection) (principal); E43 Unspecified severe protein-calorie malnutrition; R64 Cachexia; Z68.1 Body mass index [BMI] 19.9 or less, adult; B18.2 Chronic viral hepatitis C; J45.909 Unspecified asthma, uncomplicated; E87.6 Hypokalemia
CPT/HCPCS: 36415; 71010-TC; 74020-TC; 74176-TC; 74177-TC; 80048; 80053; 81003; 83605; 83690; 83735; 84100; 85025; 85610; 86850; 86900; 86901; 93005; 93010; 94640; 99284-25; J1644

== ENCOUNTER 2017-10-13 02:57 | Inpatient (IN) | payer MEDICARE, OTHER ==
--- NOTE | 2017-10-13 03:31 | PDOC ---
History of Present Illness - General History Source: Patient, Old Records Exam Limitations: No Limitations - History of Present Illness Initial Comments: 10/13/17 04:04 The patient is a 67 year old male with history of asthma, SBO brought in by EMS for approximately 1 day of diffuse abdominal pain with associated nausea and nonbloody, nonbilious vomiting. Also reports associated abdominal distention. Denies diarrhea or constipation. Last BM yesterday. Denies fever or chills. Denies chest pain or palpitations. Denies hematuria or dysuria. <Clara Simental - Last Filed: 10/13/17 06:39> <Lanny Savage - Last Filed: 10/16/17 10:07> - General Stated Complaint: ABDOMINAL PAIN,VOMITING Time Seen by Provider: 10/13/17 03:31 Past History <Clara Simental - Last Filed: 10/13/17 06:39> - Past Medical History Asthma: Yes COPD: Yes GI Disorders: Yes (SBO) Liver Disease: Yes (HEPATITIS C) - Surgical History Abdominal Surgery: Yes (EXP.LAP FOR SBO; RESECTION) Appendectomy: Yes - Immunization History Immunization Up to Date: Yes - Suicide/Smoking/Psychosocial Hx Smoking Status: Yes Smoking History: Former smoker Have you smoked in the past 12 months: No Number of Cigarettes Smoked Daily: 5 If you are a former smoker, when did you quit?: 1.5yrs ago 'Breaking Loose' booklet given: 11/02/16 Hx Alcohol Use: No Drug/Substance Use Hx: No Substance Use Type: None Hx Substance Use Treatment: No <Lanny Savage - Last Filed: 10/16/17 10:07> - Past Medical History Allergies/Adverse Reactions: Allergies Allergy/AdvReac Type Severity Reaction Status Date / Time No Known Allergies Allergy Verified 10/13/17 03:59 Home Medications: Ambulatory Orders Ipratropium/Albuterol Sulfate [Combivent Respimat Inhal [place]] 4 gm IH BID 10/13 Salmeterol/Fluticasone [Advair 100Mcg/50Mcg -] 1 inh PO BID 10/13/17 Review of Systems - Review of Systems Able to Perform ROS?: Yes Comments:: 10/13/17 04:06 GENERAL/CONSTITUTIONAL: No fever or chills. No weakness. HEAD, EYES, EARS, NOSE AND THROAT: No change in vision. No ear pain or discharge. No sore throat. CARDIOVASCULAR: No chest pain or shortness of breath. RESPIRATORY: No cough, wheezing, or hemoptysis. GASTROINTESTINAL: +Abdominal pain, nausea, vomiting. No diarrhea or constipation. GENITOURINARY: No dysuria, frequency, or change in urination. MUSCULOSKELETAL: No joint or muscle swelling or pain. No neck or back pain. SKIN: No rash NEUROLOGIC: No headache, vertigo, loss of consciousness, or change in strength/ sensation. ENDOCRINE: No increased thirst. No abnormal weight change. HEMATOLOGIC/LYMPHATIC: No anemia, easy bleeding, or history of blood clots. ALLERGIC/IMMUNOLOGIC: No hives or skin allergy. <Clara Simental - Last Filed: 10/13/17 06:39> *Physical Exam - Vital Signs Last Vital Signs Temp Pulse Resp BP Pulse Ox 98.5 F 84 19 140/90 100 10/13/17 03:00 10/13/17 03:00 10/13/17 03:00 10/13/17 03:00 10/13/17 03:00 - Physical Exam Comments: 10/13/17 04:07 GENERAL: Awake, alert, and fully oriented, in no acute distress HEAD: No signs of trauma EYES: PERRLA, EOMI, sclera anicteric, conjunctiva clear ENT: Auricles normal inspection, nares patent. Moist mucosa NECK: Normal ROM, supple, no JVD, or masses LUNGS: +Scattered crackles at b/l lung bases. HEART: Regular rate and rhythm, normal S1 and S2, no murmurs, rubs or gallops ABDOMEN: +Abdomen is distended with diffuse abdominal tenderness to palpation. Soft, normoactive bowel sounds. No guarding, no rebound. No masses EXTREMITIES: Normal range of motion, no edema. No clubbing or cyanosis. No cords, erythema, or tenderness NEUROLOGICAL: Alert and oriented x 3. Moves all extremities. Face is symmetric. SKIN: Warm, Dry, normal turgor, no rashes or lesions noted. <Clara Simental - Last Filed: 10/13/17 06:39> ED Treatment Course - LABORATORY CBC & Chemistry Diagram: 10/13/17 05:13 10/13/17 05:13 <Clara Simental - Last Filed: 10/13/17 06:39> - LABORATORY CBC & Chemistry Diagram: 10/16/17 07:00 10/16/17 07:00 <Lanny Savage - Last Filed: 10/16/17 10:07> Medical Decision Making - Medical Decision Making 10/13/17 06:[address], preliminary reading by Imaging Leaded Glass Installer IMPRESSION: Small bowel obstruction <Clara Simental - Last Filed: 10/13/17 06:39> - Medical Decision Making 10/13/17 06:09 Pt presents to the ED complaining of generalized abdominal pain, nausea and vomiting. History of multiple abdominal surgeries and SBOs. Abdomen is distended and diffusely tender. Concern for SBO, bowel perforation, less likely diverticulitis or abscess. Will check labs and CT abdomen pelvis and likely admit. 10/13/17 06:09 10/13/17 06:10 <Lanny Savage - Last Filed: 10/16/17 10:07> *DC/Admit/Observation/Transfer - Attestations Scribe Attestion: 10/13/17 04:07 Documentation prepared by Clara Simental, acting as certified medical records coder for Lanny Savage MD. <Clara Simental - Last Filed: 10/13/17 06:39> - Discharge Dispostion Decision to Admit order: Yes <Lanny Savage - Last Filed: 10/16/17 10:07> Diagnosis at time of Disposition: Bowel obstruction Qualifiers: Intestinal obstruction type: other intestinal obstruction Intestinal obstruction extent: partial Qualified Code(s): K56.690 - Other partial intestinal obstruction - Discharge Dispostion Condition at time of disposition: Stable
[2017-10-13] MEDS ORDERED: morphine CARPU-JECT 4 MG/1 ML DISP.SYRIN IVPUSH ONE ×2 (04:05→19:34)
[2017-10-13] MEDS ORDERED: morphine SULFATE 4 MG/ML VIAL ONE ×2 (05:19→06:54)
[2017-10-13 05:44] LABS: BASO % 0.4 % (0-2.0); EOS % 0.2 % (0-4.5); HEMATOCRIT 45.8 % (35.4-49); HEMOGLOBIN 14.9 GM/dL (11.7-16.9); LYMPH % 9.2 % (8-40); MCH 27.1 pg (25.7-33.7); MCHC 32.6 g/dl (32.0-35.9); MEAN CELL VOLUME 83.1 fl (80-96); MEAN PLT VOLUME 8.5 fl (7.5-11.1); MONO % 3.6 % (3.8-10.2); NEUT % 86.6 % (42.8-82.8); PLATELET COUNT 334 K/MM3 (134-434); RBC 5.51 M/mm3 (4.00-5.60); RDW 16.5 % (11.9-15.9); WHITE BLOOD COUNT 9.3 K/mm3 (4.0-10.0)
[2017-10-13 06:07] LABS: ALBUMIN 4.7 g/dl (3.4-5.0); ALK PHOS 65 U/L (45-117); ANION GAP 8 (8-16); BILIRUBIN,TOTAL 0.5 mg/dL (0.2-1.0); BLOOD UREA NITROGEN 21 mg/dL (7-18); CALCIUM 10.6 mg/dL (8.5-10.1); CHLORIDE 102 mmol/L (98-107); CO2 29 mmol/L (21-32); CREATININE 1.3 mg/dL (0.7-1.3); GLUCOSE,RANDOM 99 mg/dL (74-106); POTASSIUM 5.2 mmol/L (3.5-5.1); SGOT/AST 17 U/L (15-37); SGPT/ALT 18 U/L (12-78); SODIUM 139 mmol/L (136-145); TOT PROT 9.3 g/dl (6.4-8.2)
[2017-10-13] MEDS: ALBUTEROL SO4 2.5/IPRATROPIUM 0.5 INH SOL 3 ML VIAL.NEB. NEB SCH ×3 (06:24→20:36)
[2017-10-13] MEDS ORDERED: ALBUTEROL SO4 2.5/IPRATROPIUM 0.5 INH SOL 3 ML VIAL.NEB. NEB ONE (06:25)
[2017-10-13] MEDS ORDERED: LIDOCAINE HCL 2% JELLY (5 ML/TUBE) ONE (07:06)
--- NOTE | 2017-10-13 07:41 | PDOC ---
*Physical Exam - Vital Signs Last Vital Signs Temp Pulse Resp BP Pulse Ox 98.5 F 84 19 140/90 100 10/13/17 03:00 10/13/17 03:00 10/13/17 03:00 10/13/17 03:00 10/13/17 03:00 ED Treatment Course - LABORATORY CBC & Chemistry Diagram: 10/13/17 05:13 10/13/17 05:13 - ADDITIONAL ORDERS Additional order review: Laboratory Results 10/13/17 10/13/17 05:13 05:13 Sodium 139 Potassium 5.2 H D Chloride 102 Carbon Dioxide 29 Anion Gap 8 BUN 21 H D Creatinine 1.3 D Creat Clearance w eGFR 54.73 Random Glucose 99 D Lactic Acid 1.4 Calcium 10.6 H D Total Bilirubin 0.5 AST 17 D ALT 18 D Alkaline Phosphatase 65 D Total Protein 9.3 H D Albumin 4.7 D 10/13/17 05:13 RBC 5.51 MCV 83.1 MCHC 32.6 RDW 16.5 H MPV 8.5 Neutrophils % 86.6 H D Lymphocytes % 9.2 D Monocytes % 3.6 L Eosinophils % 0.2 Basophils % 0.4 - Medications Given in the ED: ED Medications Discontinued Medications Generic Name Dose Route Start Last Admin Trade Name Freq PRN Reason Stop Dose Admin Albuterol/Ipratropium 1 amp 10/13/17 04:15 10/13/17 06:24 Duoneb - NEB 10/13/17 05:01 1 amp Q15M EMILY Administration Morphine Sulfate 4 mg 10/13/17 04:05 10/13/17 05:33 Morphine Injection - IVPUSH 10/13/17 04:06 4 mg ONCE ONE Administration Medical Decision Making - Medical Decision Making 10/13/17 07:40 I received this patient in sign out Case reviewed with Dr Han clinical impression: SBO, initial presentation 10/13/17 07:43 *DC/Admit/Observation/Transfer Diagnosis at time of Disposition: Bowel obstruction Qualifiers: Intestinal obstruction type: other intestinal obstruction Intestinal obstruction extent: partial Qualified Code(s): K56.690 - Other partial intestinal obstruction - Discharge Dispostion Condition at time of disposition: Stable Decision to Admit order: Yes - Referrals - Patient Instructions - Post Discharge Activity
[2017-10-13] MEDS ORDERED: SODIUM CHLORIDE 1,000 ML IV SCH (08:45)
[2017-10-13] MEDS ORDERED: morphine CARPU-JECT 2 MG/1 ML DISP.SYRIN IVPUSH PRN (09:00)
--- NOTE | 2017-10-13 09:00 | HP ---
CC: Abdominal pain w/ n/v PCP: Dr. Lubin General Surgery: Dr. 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 Pt recalls feeling fine till he had steak and rice. Pain came on 5-6 hours after meal with nausea and NBNB vomiting. He had ex-laparotomy and lysis of adhesion in 2013 and open surgery for free air s/p colonoscopy in 2012. Pt has had at least 6 episodes of SBO thereafter and managed conservatively and medically. Denies chest pain, sob , urinary sx, fever, chills. 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 GI: +abd pain, no nausea or vomiting : No frequency, urgency, dysuria, or hematuria. MSK: No joint or muscle pain Psychology: No depression, anxiety, or insomnia. Physical Examination Last Vital Signs Temp Pulse Resp BP Pulse Ox 98.5 F 84 19 140/90 100 10/13/17 03:00 10/13/17 03:00 10/13/17 03:00 10/13/17 03:00 10/13/17 03:00 General: Patient sitting up in chair in no obvious discomfort or distress, AAO x 3. able to speak full sentences, appropriate to stated age. Eyes: PERRLA ENT: Oropharynx clear with no lesions/erythema. Neck: Supple with no LAD or masses. Lymph Nodes: No cervical or inguinal LAD. Cardiovascular: RRR, S1 and S2 normal, no m/g/r. Lungs: CTAB Abdomen: hyperactive bowel sounds. Non-distended, diffuse tenderness upon deep palpation, no guarding/rebound Extremeties: No peripheral edema Imaging: CT abdomin on 10/13: Pending official read A/P: 67 yo M admitted to med-surg for SBO. SBO, recurrent - 2/2 adhesions - Hemodynamically stable - IV tylenol for pain control and zofran for n/v - IVF for NPO and insensible fluid loss - Maintain NG suction - NPO - Surgery consult Asthma - Cont. advair and combivent Hep C - Previously treated in remission FEN - Cont. D5NS 75ml/hr - Cont. to monitor lytes - NPO Prophylaxis - DVT: heparin Dispo - Cont. to monitor on med-surg [facility] PGY2 Pager: [phone] Visit type - Emergency Visit Emergency Visit: Yes ED Registration Date: 10/13/17 Care time: The patient presented to the Emergency Department on the above date and was hospitalized for further evaluation of their emergent condition. - New Patient This patient is new to me today: Yes Date on this admission: 10/13/17 - Critical Care Critical Care patient: No Hospitalist Screening - Colonoscopy Questionnaire Colonoscopy Questionnaire: Colonoscopy Questionnaire - Patient: 50 - 75 years old and never had a screening colonoscopy: No History of colon or rectal polyps, or CA: No History of IBD, Crohn's disease or UC: No History of abdominal radiation therapy as a child: No - Relative: 1 with colon or rectal CA, or polyps at age 60 or younger: No Colon or rectal CA diagnosed at age 45 or younger: No Multiple relatives with colon or rectal CA: No - Outcome: Screening Result: Negative Screen
--- NOTE | 2017-10-13 10:03 | PN ---
Teaching Attending Note Name of Resident: Dejon Calzada ATTENDING PHYSICIAN STATEMENT I saw and evaluated the patient. I reviewed the resident's note and discussed the case with the resident. I agree with the resident's findings and plan as documented with exceptions below. SUBJECTIVE: 67 yom with PMHx of appendectomy, s/p exlap with small bowel resection in 2013 for SBO, 3 more episodes of SBO since, last in 11/7016, also prior heavy smoker with COPD, comes with sudden onset of nausea, multiple episodes of non bloody vomitus and generalized abdominal pain starting after having steak and rice yesterday around 4 pm. No fevers/chills. Last BM yesterday afternoon, no diarrhea. Has not been passing gas since. was recently seen by PCP for increased cough/congestion and prescribed azithromycin and Short prednisone course. 12 point ROS done, currently with no fevers/chills, new dyspnea, or worsening cough. Denies recent change in PO intake, or increased intake of fruits/nuts/ berries/broccoli etc. OBJECTIVE: Vital Signs Period Temp Pulse Resp BP Sys/Monsalve Pulse Ox Last 24 Hr 98.0 F-98.5 F 84-98 18-19 114-140/77-90 100 Intake & Output 10/10/17 10/11/17 10/12/17 10/13/17 23:59 23:59 23:59 23:59 Weight 130 lb GENERAL: Awake, alert, and fully oriented, in no acute distress, cachectic male. HEAD: Normal with no signs of trauma. EYES: Pupils equal, round and reactive to light, extraocular movements intact, sclera anicteric, conjunctiva clear. No lid lag. EARS, NOSE, THROAT: Ears normal, nares patent, oropharynx clear without exudates. Mildly dry mucous membrane, NG tube in place NECK: soft, supple, no JVD LUNGS:distant breath sounds consistent with emphysema but positive air entry bilaterally clear to auscultation bilaterally. No wheezes, and no crackles. No accessory muscle use. HEART: Regular rate and rhythm, ABDOMEN: Soft, distended, tender throughout, hyperactive bowel sounds, no voluntary or involuntary guarding or rigidity. MUSCULOSKELETAL: Normal range of motion at all joints. No bony deformities or tenderness. No CVA tenderness. UPPER EXTREMITIES: 2+ pulses, warm, well-perfused. No cyanosis. No clubbing. No peripheral edema. LOWER EXTREMITIES: 2+ pulses, warm, well-perfused. No calf tenderness. No peripheral edema. NEUROLOGICAL: facial symmetry, EOMI, moves all extremities freely and symmetrically PSYCHIATRIC: Cooperative. Good eye contact. Appropriate mood and affect. SKIN: Warm, dry, normal turgor, no rashes or lesions noted, normal capillary refill. Active Medications Acetaminophen (Ofirmev Injection -) 1,000 mg IVPB Q6H PRN PRN Reason: PAIN LEVEL 6-10 Albuterol/Ipratropium (Duoneb -) 1 amp NEB RTID EMILY Sodium Chloride (Normal Saline -) 1,000 mls @ 75 mls/hr IV ASDIR EMILY Last Admin: 10/13/17 09:14 Dose: 75 mls/hr Ondansetron HCl (Zofran Injection) 4 mg IVPUSH Q4H PRN PRN Reason: NAUSEA AND/OR VOMITING Pneumococcal 13-Valent Conj Vacc (Prevnar 13 Syringe -) 0.5 ml IM .ONCE ONE Stop: 10/13/17 10:02 Fluticasone/Salmeterol (Advair 100mcg/50mcg -) 1 puff IH BID [facility] Laboratory Results - last 24 hr 10/13/17 10/13/17 10/13/17 05:13 05:13 05:13 WBC 9.3 D RBC 5.51 Hgb 14.9 D Hct 45.8 D MCV 83.1 MCH 27.1 MCHC 32.6 RDW 16.5 H Plt Count 334 D MPV 8.5 Absolute Neuts (auto) 8.0 Neutrophils % 86.6 H D Lymphocytes % 9.2 D Monocytes % 3.6 L Eosinophils % 0.2 Basophils % 0.4 Nucleated RBC % 0 Sodium 139 Potassium 5.2 H D Chloride 102 Carbon Dioxide 29 Anion Gap 8 BUN 21 H D Creatinine 1.3 D Creat Clearance w eGFR 54.73 Random Glucose 99 D Lactic Acid 1.4 Calcium 10.6 H D Total Bilirubin 0.5 AST 17 D ALT 18 D Alkaline Phosphatase 65 D Total Protein 9.3 H D Albumin 4.[address] A/P results reviewed high grade SBO with transition point ASSESSMENT AND PLAN: 67 yom with PMHx for former heavy smoker, COPD, appendectomy, recurrent SBO, comes with high grade SBO -Acute high grade Small bowel obstruction -COPD -Former heavy smoker Plan: NPO, NG tube to suction, surgery consulted with Dr. Lim, serial abdominal exam. IVF, IV tylenol prn. Avoid opioids for now. No s/s concerning for COPD exacerbation currently. Hold azithromycin and prednisone. Continue home combivent and advair. Routine EKG and CXR in case needs OR DVTPPx with lovenox Dispo pending surgery input and clinical course. Plan discussed with patient in detail, all questions answered. Total admit time 55 min.
[2017-10-13] MEDS ORDERED: DEXTROSE 5%-NORMAL SALINE 1,000 ML IV SCH (10:45)
[2017-10-13] MEDS ORDERED: SODIUM CHLORIDE 1,000 ML IV STA (11:13)
[2017-10-13] MEDS: ACETAMINOPHEN 1000 MG/100 ML VIAL (NON FORMULARY) IVPB PRN ×2 (12:52→22:22)
[2017-10-13] MEDS ORDERED: PNEUMOC 13-VAL CONJ-DIP CRM/PF 0.5 ML DISP.SYRIN IM ONE (13:00)
[2017-10-13] MEDS: FLUTICASONE/SALMETEROL 100 MCG/50 MCG DISKUS IH SCH ×2 (13:27→22:16)
[2017-10-13] MEDS ORDERED: PT OWN MED DRAWER 7, Y5N ONE (13:34)
--- NOTE | 2017-10-13 14:07 | CONSULT ---
Consult Consult Specialty:: Surgery Referred by:: Hospitalist - History of Present Illness Chief Complaint: Abdominal pain since 4.00 pm yesterday. History of Present Illness: HPI: 67 yo AA h/o multiple SBO from adhesions, asthma never intubated and Hep C presented to the ED with diffuse abd pain with nausea and vomiting. Pt recalls feeling fine till he had steak and rice. Pain came on 5-6 hours after meal with nausea and NBNB vomiting. He had ex-laparotomy and lysis of adhesion in 2013 and open surgery for free air s/p colonoscopy in 2012. Pt has had at least 6 episodes of SBO thereafter and managed conservatively and medically. Denies chest pain, sob, urinary sx, fever, chills.. He now feels better after the nasogastric tube is placed. Still has pain on right side of abdomen. ND tube has been placed, and draining greenish material. - History Source History Provided By: Patient Limitations to Obtaining History: No Limitations - Past Medical History Gastrointestinal: Yes: Other (Hepatitis c, Laparotomy, small bowel reection) - Alcohol/Substance Use Hx Alcohol Use: Yes (occassionaly) - Smoking History Smoking history: Former smoker Have you smoked in the past 12 months: No Aproximately how many cigarettes per day: 5 If you are a former smoker, when did you quit?: 1.5yrs ago - Social History ADL: Independent History of Recent Travel: No Home Medications - Allergies Allergies/Adverse Reactions: Allergies Allergy/AdvReac Type Severity Reaction Status Date / Time No Known Allergies Allergy Verified 10/13/17 03:59 - Home Medications Home Medications: Ambulatory Orders Ipratropium/Albuterol Sulfate [Combivent Respimat Inhal [place]] 4 gm IH BID 10/13 Salmeterol/Fluticasone [Advair 100Mcg/50Mcg -] 1 inh PO BID 10/13/17 Family Disease History - Family Disease History Family Disease History: Diabetes: Sister Physical Exam Vital Signs: Vital Signs Temperature 98.0 F 10/13/17 09:29 Pulse Rate 98 H 10/13/17 09:29 Respiratory Rate 18 10/13/17 09:29 Blood Pressure 114/77 10/13/17 09:29 O2 Sat by Pulse Oximetry (%) 100 10/13/17 03:00 Gastrointestinal: Yes: Other (Tender in right side of abdomen , no guarding, no rigidity.) Labs: CBC, BMP 10/13/17 05:13 10/13/17 05:13 Imaging - Results Cat Scan: Report Reviewed, Image Reviewed Problem List - Problems (1) Abdominal pain Code(s): R10.9 - UNSPECIFIED ABDOMINAL PAIN Qualifiers: Abdominal location: right lower quadrant Qualified Code(s): R10.31 - Right lower quadrant pain (2) Intestinal obstruction due to adhesions Code(s): K56.5 - INTESTINAL ADHESIONS WITH OBSTRUCTION (POSTIN * DO NOT USE * (3) Hepatitis C, chronic Code(s): B18.2 - CHRONIC VIRAL HEPATITIS C (4) Asthma Code(s): J45.909 - UNSPECIFIED ASTHMA, UNCOMPLICATED Qualifiers: Asthma severity: mild persistent Asthma complication type: uncomplicated Qualified Code(s): J45.30 - Mild persistent asthma, uncomplicated Assessment/Plan 67 year old man with recurrent intestinal obstruction , last episode about a year ago. CT scan suggests a transition point in right lower abdomen. Patient is informed of the nfindings , and presence of intestinal obstruction. He does not want surgery. He is informed that if he does not improve , he may need surgery. Plan : Hydrate, repeat abdominal X-Ray and blood work tomorrow. Currently patient feels better than when he came in.
--- NOTE | 2017-10-13 14:35 | EKG ---
Test Reason : Blood Pressure : / mmHG Vent. Rate : 098 BPM Atrial Rate : 098 BPM P-R Int : 142 ms QRS Dur : 060 ms QT Int : 348 ms P-R-T Axes : 083 076 073 degrees QTc Int : 444 ms NORMAL SINUS RHYTHM NORMAL ECG WHEN COMPARED WITH ECG OF 03-NOV-2016 09:54, VENT. RATE HAS INCREASED BY 34 BPM INVERTED T WAVES HAVE REPLACED NONSPECIFIC T WAVE ABNORMALITY IN ANTERIOR LEADS Confirmed by MD Jayant, Vick ([id number]) on 10/13/2017 2:35:46 PM Referred By: Samantha TODD Confirmed By:Vick Saba MD
[2017-10-13] MEDS: DEXTROSE 5%-0.45% SALINE 1,000 ML IV SCH (14:54)
[2017-10-13] MEDS: ONDANSETRON 4 MG/2 ML VIAL IVPUSH PRN (19:53)
[2017-10-13] MEDS: HEPARIN NA (PORCINE) 5,000 UNITS/ML 1ML VIAL SQ SCH (22:17)
[2017-10-14] MEDS: ACETAMINOPHEN 1000 MG/100 ML VIAL (NON FORMULARY) IVPB PRN ×3 (08:00→21:16)
[2017-10-14] MEDS: ALBUTEROL SO4 2.5/IPRATROPIUM 0.5 INH SOL 3 ML VIAL.NEB. NEB SCH ×3 (08:08→20:10)
[2017-10-14] MEDS ORDERED: PT OWN MED DRAWER 7, Y5N ONE ×2 (09:09→21:10)
[2017-10-14] MEDS: FLUTICASONE/SALMETEROL 100 MCG/50 MCG DISKUS IH SCH ×2 (09:25→21:16)
--- NOTE | 2017-10-14 09:25 | PN ---
Physical Exam: SUBJECTIVE: Patient seen and examined, nausea improved, abdominal pain better, passing some gas. No new fevers, chills, dizziness or concerns. OBJECTIVE: Vital Signs Period Temp Pulse Resp BP Sys/Monsalve Pulse Ox Last 24 Hr 98.0 F-98.8 F 84-98 18- 98-136/62-92 General: sitting in bed in no acute distress HEENT: NG tube in place, to scution, draining greenish material Chest: CTAB, no rales or wheezing Abdomen: soft, intermittent voluntary guarding or exam, mild to moderate generalized tenderness, unchanged from yesterday, positive bowel sounds less hyperactive than yesterday, ND Extremities: no edema Laboratory Results - last 24 hr 10/13/17 10/14/17 10/14/17 12:26 09:40 09:40 WBC 4.8 D RBC 3.76 L D Hgb 10.3 L D Hct 31.5 L D MCV 83.7 MCH 27.4 MCHC 32.8 RDW 15.9 Plt Count 220 D MPV 8.2 PT with INR INR PTT (Actin FS) Sodium 142 Potassium 3.7 D Chloride 110 H Carbon Dioxide 26 Anion Gap 6 L BUN 14 D Creatinine 1.0 D Random Glucose 99 Lactic Acid Calcium 8.0 L D Magnesium 2.1 Blood Type A POSITIVE Antibody Screen Negative 10/14/17 10/14/17 09:40 09:40 WBC RBC Hgb Hct MCV MCH MCHC RDW Plt Count MPV PT with INR 13.80 H INR 1.22 H PTT (Actin FS) 30.7 Sodium Potassium Chloride Carbon Dioxide Anion Gap BUN Creatinine Random Glucose Lactic Acid 1.3 Calcium Magnesium Blood Type Antibody Screen Active Medications Generic Name Dose Route Start Last Admin Trade Name Westleyq PRN Reason Stop Dose Admin Acetaminophen 1,000 mg 10/13/17 10:17 10/14/17 08:00 Ofirmev Injection - IVPB 1,000 mg Q6H PRN Administration PAIN LEVEL 6-10 Albuterol/Ipratropium 1 amp 10/13/17 14:00 10/14/17 08:08 Duoneb - NEB Not Given RTID EMILY Heparin Sodium (Porcine) 5,000 unit 10/13/17 22:00 10/13/17 22:17 Heparin - SQ 5,000 unit BID EMILY Administration Dextrose/Sodium Chloride 1,000 mls @ 100 mls/hr 10/13/17 14:15 10/13/17 14:54 D5-1/2ns - IV 100 mls/hr ASDIR EMILY Administration Ondansetron HCl 4 mg 10/13/17 09:00 10/13/17 19:53 Zofran Injection IVPUSH 4 mg Q4H PRN Administration NAUSEA AND/OR VOMITING Fluticasone/Salmeterol 1 puff 10/13/17 10:00 10/13/17 22:16 Advair 100mcg/50mcg - IH 1 puff BID EMILY Administration Abdominal xray: some air and stool in colon, partial resolution of SBO EKG NSR 98, T inversion in V1-V2 CXR- hyperinflation, no acute process ASSESSMENT/PLAN: 67 yom with PMHx for former heavy smoker, COPD, appendectomy, recurrent SBO, comes with high grade SBO -Acute high grade Small bowel obstruction -COPD -Former heavy smoker Plan: NPO, NG tube to suction, surgery Dr. Lim input appreciated, serial abdominal exam. IVF, IV tylenol prn. Avoid opioids for now. Symptoms, xray improved. COntinue conservative management and follow up with surgery. No s/s concerning for COPD exacerbation currently. Hold azithromycin and prednisone. Continue home combivent and advair. Routine EKG and CXR in case needs OR DVTPPx with heparin Dispo pending surgery input and clinical course. Plan discussed with patient in detail, all questions answered. Visit type - Emergency Visit Emergency Visit: No - New Patient This patient is new to me today: No - Critical Care Critical Care patient: No
[2017-10-14] MEDS: HEPARIN NA (PORCINE) 5,000 UNITS/ML 1ML VIAL SQ SCH ×2 (09:26→21:16)
[2017-10-14 10:27] LABS: HEMATOCRIT 31.5 % (35.4-49); HEMOGLOBIN 10.3 GM/dL (11.7-16.9); MCH 27.4 pg (25.7-33.7); MCHC 32.8 g/dl (32.0-35.9); MEAN CELL VOLUME 83.7 fl (80-96); MEAN PLT VOLUME 8.2 fl (7.5-11.1); PLATELET COUNT 220 K/MM3 (134-434); RBC 3.76 M/mm3 (4.00-5.60); RDW 15.9 % (11.9-15.9); WHITE BLOOD COUNT 4.8 K/mm3 (4.0-10.0)
[2017-10-14 10:51] LABS: ANION GAP 6 (8-16); BLOOD UREA NITROGEN 14 mg/dL (7-18); CHLORIDE 110 mmol/L (98-107); CO2 26 mmol/L (21-32); GLUCOSE,RANDOM 99 mg/dL (74-106); MAGNESIUM 2.1 mg/dL (1.8-2.4); POTASSIUM 3.7 mmol/L (3.5-5.1); SODIUM 142 mmol/L (136-145)
[2017-10-14 10:53] LABS: INR 1.22 (0.82-1.09); PROTHROMBIN TIME (PATIENT) 13.8 SEC (9.7-13.0)
[2017-10-14 10:56] LABS: ACTIVATED PTT 30.7 SECONDS (26.9-34.4)
[2017-10-14] MEDS: DEXTROSE 5%-0.45% SALINE 1,000 ML IV SCH (12:51)
[2017-10-14 15:20] LABS: BASO % 0.2 % (0-2.0); EOS % 1.5 % (0-4.5); HEMATOCRIT 32.4 % (35.4-49); HEMOGLOBIN 10.4 GM/dL (11.7-16.9); LYMPH % 25.1 % (8-40); MCH 26.9 pg (25.7-33.7); MCHC 32.3 g/dl (32.0-35.9); MEAN CELL VOLUME 83.4 fl (80-96); MEAN PLT VOLUME 8.2 fl (7.5-11.1); MONO % 9.3 % (3.8-10.2); NEUT % 63.9 % (42.8-82.8); PLATELET COUNT 230 K/MM3 (134-434); RBC 3.88 M/mm3 (4.00-5.60); WHITE BLOOD COUNT 5.3 K/mm3 (4.0-10.0)
--- NOTE | 2017-10-14 16:37 | PN ---
Progress Note, Physician - Current Medication List Current Medications: Active Medications Albuterol/Ipratropium (Duoneb -) 1 amp NEB RTID [facility] Last Admin: 10/14/17 13:34 Dose: 1 amp Heparin Sodium (Porcine) (Heparin -) 5,000 unit SQ BID [facility] Last Admin: 10/14/17 09:26 Dose: 5,000 unit Dextrose/Sodium Chloride (D5-1/2ns -) 1,000 mls @ 100 mls/hr IV ASDIR [facility] Last Admin: 10/14/17 12:51 Dose: 100 mls/hr Ondansetron HCl (Zofran Injection) 4 mg IVPUSH Q4H PRN PRN Reason: NAUSEA AND/OR VOMITING Last Admin: 10/13/17 19:53 Dose: 4 mg Fluticasone/Salmeterol (Advair 100mcg/50mcg -) 1 puff IH BID [facility] Last Admin: 10/14/17 09:25 Dose: 1 puff - Objective Vital Signs: Vital Signs Temperature 98.6 F 10/14/17 09:00 Pulse Rate 75 10/14/17 09:00 Respiratory Rate 18 10/14/17 09:00 Blood Pressure 129/64 10/14/17 09:00 O2 Sat by Pulse Oximetry (%) 100 10/13/17 03:00 Labs: CBC, BMP 10/14/17 14:50 10/14/17 09:40 INR, PTT INR 1.22 (0.82-1.09) H 10/14/17 09:40 Problem List - Problems (1) Abdominal pain Code(s): R10.9 - UNSPECIFIED ABDOMINAL PAIN Qualifiers: Abdominal location: right lower quadrant Qualified Code(s): R10.31 - Right lower quadrant pain (2) Intestinal obstruction due to adhesions Code(s): K56.5 - INTESTINAL ADHESIONS WITH OBSTRUCTION (POSTIN * DO NOT USE * (3) Hepatitis C, chronic Code(s): B18.2 - CHRONIC VIRAL HEPATITIS C (4) Asthma Code(s): J45.909 - UNSPECIFIED ASTHMA, UNCOMPLICATED Qualifiers: Asthma severity: mild persistent Asthma complication type: uncomplicated Qualified Code(s): J45.30 - Mild persistent asthma, uncomplicated Assessment/Plan Surgery: Patient has less pain, has been passing flatus, Feels better, X-Ray Improvement in intestinal obstruction . Air in colon. Continue current management. F/O Abdominal X-ray tomorrow.
[2017-10-15] MEDS: ONDANSETRON 4 MG/2 ML VIAL IVPUSH PRN ×3 (00:35→22:35)
[2017-10-15] MEDS: ACETAMINOPHEN 1000 MG/100 ML VIAL (NON FORMULARY) IVPB PRN ×2 (03:15→09:44)
[2017-10-15] MEDS: DEXTROSE 5%-0.45% SALINE 1,000 ML IV SCH (04:41)
[2017-10-15] MEDS: ALBUTEROL SO4 2.5/IPRATROPIUM 0.5 INH SOL 3 ML VIAL.NEB. NEB SCH ×2 (07:20→13:53)
--- NOTE | 2017-10-15 08:27 | PN ---
Physical Exam: SUBJECTIVE: Patient seen and examined. NGT still draining under suction greenish liquid. Says abdominal pain is improved. Had one episode of vomiting overnight. No fevers. Last BM last Sunday am. OBJECTIVE: Vital Signs Period Temp Pulse Resp BP Sys/Monsalve Pulse Ox Last 24 Hr 98.5 F-99.6 F 71-80 18-19 105-129/64-69 Vital Signs Temp 99.6 F 10/15/17 06:00 Pulse 80 10/15/17 06:00 Resp 19 10/14/17 21:00 BP 117/69 10/15/17 06:00 Pulse Ox 100 10/13/17 03:00 Intake & Output 10/14/17 10/14/17 10/15/17 11:59 23:59 11:59 Intake Total 1200 1300 1200 Output Total 600 750 800 Balance 600 550 400 Intake: IV 1200 1100 1200 D5-1/2Ns - 1,000 ml @ 100 1200 1100 1200 mls/hr IV ASDIR EMILY Rx#: [id number] IVPB 200 Oral 0 Output: Gastric Drainage 100 50 800 Urine 500 700 Void 500 700 Other: Voiding Method Urinal Urinal Bowel Movement No No Intake & Output 10/12/17 10/13/17 10/14/17 10/15/17 23:59 23:59 23:59 23:59 Intake Total 1750 2500 1200 Output Total 700 1350 800 Balance 1050 1150 400 Weight 58.967 kg GENERAL: The patient is awake, alert, and fully oriented, in no acute painful distress. NGT in place draining greenish fluid undersuction HEAD: Bilateral temporal wasting ENT: NGT in place LUNGS: Breath sounds equal, clear to auscultation bilaterally HEART: Regular rate and rhythm, S1, S2 ABDOMEN: Midline infraumbilical scar. Firm generalized tenderness, hypoactive bowel sounds, voluntary guarding EXTREMITIES: 2+ pulses, warm, well-perfused, no edema. NEUROLOGICAL: AAox3. Able to move all extremities Laboratory Results - last 24 hr 10/14/17 10/14/17 10/14/17 09:40 09:40 09:40 WBC 4.8 D RBC 3.76 L D Hgb 10.3 L D Hct 31.5 L D MCV 83.7 MCH 27.4 MCHC 32.8 RDW 15.9 Plt Count 220 D MPV 8.2 Absolute Neuts (auto) Neutrophils % Lymphocytes % Monocytes % Eosinophils % Basophils % Nucleated RBC % PT with INR 13.80 H INR 1.22 H PTT (Actin FS) 30.7 Sodium 142 Potassium 3.7 D Chloride 110 H Carbon Dioxide 26 Anion Gap 6 L BUN 14 D Creatinine 1.0 D Random Glucose 99 Lactic Acid Calcium 8.0 L D Magnesium 2.1 10/14/17 10/14/17 09:40 14:50 WBC 5.3 RBC 3.88 L Hgb 10.4 L Hct 32.4 L MCV 83.4 MCH 26.9 MCHC 32.3 RDW 16.0 H Plt Count 230 MPV 8.2 Absolute Neuts (auto) 3.4 Neutrophils % 63.9 D Lymphocytes % 25.1 D Monocytes % 9.3 D Eosinophils % 1.5 D Basophils % 0.2 Nucleated RBC % 0 PT with INR INR PTT (Actin FS) Sodium Potassium Chloride Carbon Dioxide Anion Gap BUN Creatinine Random Glucose Lactic Acid 1.3 Calcium Magnesium Active Medications Generic Name Dose Route Start Last Admin Trade Name Westleyq PRN Reason Stop Dose Admin Acetaminophen 1,000 mg 10/14/17 17:58 10/15/17 03:15 Ofirmev Injection - IVPB 1,000 mg Q6H PRN Administration PAIN LEVEL 6-10 Albuterol/Ipratropium 1 amp 10/13/17 14:00 10/15/17 07:20 Duoneb - NEB Not Given RTID EMILY Heparin Sodium (Porcine) 5,000 unit 10/13/17 22:00 10/14/17 21:16 Heparin - SQ 5,000 unit BID EMILY Administration Dextrose/Sodium Chloride 1,000 mls @ 100 mls/hr 10/13/17 14:15 10/15/17 04:41 D5-1/2ns - IV 100 mls/hr ASDIR EMILY Administration Ondansetron HCl 4 mg 10/13/17 09:00 10/15/17 05:16 Zofran Injection IVPUSH 4 mg Q4H PRN Administration NAUSEA AND/OR VOMITING Fluticasone/Salmeterol 1 puff 10/13/17 10:00 10/14/17 21:16 Advair 100mcg/50mcg - IH 1 puff BID EMILY Administration Imaging: CT abdomen on 10/13: High grade SBO, likely complete, with transition point identified in the midline lower abdomen just upstream from enteroenteric anastomotic sutures and ventral to the common iliac arteries. mildly enlarged prostate gland AXR 6: Partial obstruction AXR 6: Worsening obstruction ASSESSMENT/PLAN: 67 yo M with PMHx of previous exlap with recurrent SBO, asthma, Hep C, admitted to med-surg for SBO. SBO, recurrent - 2/2 adhesions - IV tylenol for pain control and zofran for n/v - IVF D5/1/2NS@100/hr for NPO and insensible fluid loss @ - Maintain NG suction - NPO - Surgery consult-in view of worsening obstruction per imaging and clinically , Dr Lim obtained consent and did exlap with adhesiolysis Asthma - Cont. advair and combivent Hep C - Previously treated in remission FEN - Cont. D5NS 100ml/hr - Cont. to monitor lytes - NPO Prophylaxis - DVT: heparin Dispo - Cont. to monitor on med-surg Visit type - Emergency Visit Emergency Visit: Yes ED Registration Date: 10/13/17 Care time: The patient presented to the Emergency Department on the above date and was hospitalized for further evaluation of their emergent condition. - New Patient This patient is new to me today: Yes Date on this admission: 10/15/17 - Critical Care Critical Care patient: No - Discharge Referral Referred to [facility] Med P.C.: No
--- NOTE | 2017-10-15 08:34 | PN ---
Teaching Attending Note Name of Resident: Cristina Pozo ATTENDING PHYSICIAN STATEMENT I saw and evaluated the patient. I reviewed the resident's note and discussed the case with the resident. I agree with the resident's findings and plan as documented with exceptions below. SUBJECTIVE: Patient seen and examined. overall a 'little better'. No nausea, but persistent abdominal pain. No BM yet. OBJECTIVE: Vital Signs Period Temp Pulse Resp BP Sys/Monsalve Pulse Ox Last 24 Hr 98.5 F-99.6 F 71-80 18-19 105-129/64-69 Intake & Output 10/12/17 10/13/17 10/14/17 10/15/17 23:59 23:59 23:59 23:59 Intake Total 1750 2500 1200 Output Total 700 1350 800 Balance 1050 1150 400 Weight 130 lb General: sitting in bed in no acute distress Abdomen: positive voluntary guarding, vague generalized tenderness, positive bowel sounds but not as hyperactive as admission, overall unchanged exam from yesterday Home Medications Medication Instructions Recorded Ipratropium/Albuterol Sulfate 4 gm IH BID 10/13/17 [Combivent Respimat Inhal [place]] Salmeterol/Fluticasone [Advair 1 inh PO BID 10/13/17 100Mcg/50Mcg -] Active Medications Acetaminophen (Ofirmev Injection -) 1,000 mg IVPB Q6H PRN PRN Reason: PAIN LEVEL 6-10 Last Admin: 10/15/17 03:15 Dose: 1,000 mg Albuterol/Ipratropium (Duoneb -) 1 amp NEB RTID [facility] Last Admin: 10/15/17 07:20 Dose: Not Given Heparin Sodium (Porcine) (Heparin -) 5,000 unit SQ BID [facility] Last Admin: 10/14/17 21:16 Dose: 5,000 unit Dextrose/Sodium Chloride (D5-1/2ns -) 1,000 mls @ 100 mls/hr IV ASDIR [facility] Last Admin: 10/15/17 04:41 Dose: 100 mls/hr Ondansetron HCl (Zofran Injection) 4 mg IVPUSH Q4H PRN PRN Reason: NAUSEA AND/OR VOMITING Last Admin: 10/15/17 05:16 Dose: 4 mg Fluticasone/Salmeterol (Advair 100mcg/50mcg -) 1 puff IH BID [facility] Last Admin: 10/14/17 21:16 Dose: 1 puff Abdominal xray - worsening SBO ASSESSMENT AND PLAN: 67 yom with PMHx for former heavy smoker, COPD, appendectomy, recurrent SBO, comes with high grade SBO -Acute high grade Small bowel obstruction -COPD -Former heavy smoker Plan: Failure of improvement with conservative management. Abdominal xray worse, unchanged symptoms. Dr. Lim's input noted, plan for laparotomy, will follow up. No s/s concerning for COPD exacerbation currently. Hold azithromycin and prednisone. Continue home combivent and advair. DVTPPx with heparin Dispo pending surgery and clinical course. Plan discussed with patient in detail, all questions answered.
[2017-10-15 08:43] LABS: BASO % 0.5 % (0-2.0); EOS % 1.4 % (0-4.5); HEMATOCRIT 38.2 % (35.4-49); HEMOGLOBIN 12.4 GM/dL (11.7-16.9); LYMPH % 19.8 % (8-40); MCHC 32.4 g/dl (32.0-35.9); MEAN CELL VOLUME 83.2 fl (80-96); MEAN PLT VOLUME 8.6 fl (7.5-11.1); MONO % 7.3 % (3.8-10.2); PLATELET COUNT 273 K/MM3 (134-434); RBC 4.59 M/mm3 (4.00-5.60); RDW 16.4 % (11.9-15.9); WHITE BLOOD COUNT 6.6 K/mm3 (4.0-10.0)
[2017-10-15 09:16] LABS: ANION GAP 7 (8-16); BLOOD UREA NITROGEN 11 mg/dL (7-18); CALCIUM 8.9 mg/dL (8.5-10.1); CHLORIDE 99 mmol/L (98-107); CO2 32 mmol/L (21-32); CREATININE 1.1 mg/dL (0.7-1.3); GLUCOSE,RANDOM 106 mg/dL (74-106); MAGNESIUM 2.2 mg/dL (1.8-2.4); PHOSPHOROUS 3.5 mg/dL (2.5-4.9); POTASSIUM 3.7 mmol/L (3.5-5.1); SODIUM 138 mmol/L (136-145)
[2017-10-15] MEDS ORDERED: PT OWN MED DRAWER 7, Y5N ONE ×3 (09:41→21:23)
[2017-10-15] MEDS: HEPARIN NA (PORCINE) 5,000 UNITS/ML 1ML VIAL SQ SCH ×2 (09:45→22:08)
[2017-10-15] MEDS: FLUTICASONE/SALMETEROL 100 MCG/50 MCG DISKUS IH SCH ×2 (09:45→22:09)
--- NOTE | 2017-10-15 14:02 | PN ---
Progress Note, Physician - Current Medication List Current Medications: Active Medications Acetaminophen (Ofirmev Injection -) 1,000 mg IVPB Q6H PRN PRN Reason: PAIN LEVEL 6-10 Last Admin: 10/15/17 09:44 Dose: 1,000 mg Albuterol/Ipratropium (Duoneb -) 1 amp NEB RTID [facility] Last Admin: 10/15/17 13:53 Dose: Not Given Heparin Sodium (Porcine) (Heparin -) 5,000 unit SQ BID [facility] Last Admin: 10/15/17 09:45 Dose: 5,000 unit Dextrose/Sodium Chloride (D5-1/2ns -) 1,000 mls @ 100 mls/hr IV ASDIR [facility] Last Admin: 10/15/17 04:41 Dose: 100 mls/hr Ondansetron HCl (Zofran Injection) 4 mg IVPUSH Q4H PRN PRN Reason: NAUSEA AND/OR VOMITING Last Admin: 10/15/17 05:16 Dose: 4 mg Fluticasone/Salmeterol (Advair 100mcg/50mcg -) 1 puff IH BID [facility] Last Admin: 10/15/17 09:45 Dose: 1 puff - Objective Vital Signs: Vital Signs Temperature 99.0 F 10/15/17 07:45 Pulse Rate 81 10/15/17 07:45 Respiratory Rate 17 10/15/17 07:45 Blood Pressure 114/75 10/15/17 07:45 O2 Sat by Pulse Oximetry (%) 100 10/13/17 03:00 Labs: CBC, BMP 10/15/17 07:00 10/15/17 07:00 INR, PTT INR 1.22 (0.82-1.09) H 10/14/17 09:40 Problem List - Problems (1) Abdominal pain Code(s): R10.9 - UNSPECIFIED ABDOMINAL PAIN Qualifiers: Abdominal location: right lower quadrant Qualified Code(s): R10.31 - Right lower quadrant pain (2) Intestinal obstruction due to adhesions Code(s): K56.5 - INTESTINAL ADHESIONS WITH OBSTRUCTION (POSTIN * DO NOT USE * (3) Hepatitis C, chronic Code(s): B18.2 - CHRONIC VIRAL HEPATITIS C (4) Asthma Code(s): J45.909 - UNSPECIFIED ASTHMA, UNCOMPLICATED Qualifiers: Asthma severity: mild persistent Asthma complication type: uncomplicated Qualified Code(s): J45.30 - Mild persistent asthma, uncomplicated Assessment/Plan Surgery: Patient still in pain. Has not had bowel movement. Abdomen is soft but slightly tender, Abdominal X-ray persistent intestinal obstruction. patient is informed of persistent intestinal obstruction, no improvement. Laparotomy suggested. He hjas ageed , and booked in OR for surgery.
[2017-10-15] MEDS ORDERED: fentaNYL CITRATE 250 MCG/5 ML VIAL ONE (15:25)
[2017-10-15] MEDS ORDERED: SUCCINYLCHOLINE CHLORIDE 200 MG/10 ML VIAL ONE (15:25)
[2017-10-15] MEDS ORDERED: ROCURONIUM BROMIDE 50 MG/5 ML VIAL ONE (15:25)
[2017-10-15] MEDS ORDERED: cefOXitin SODIUM 1 GM VIAL (RESTRICTED TO ID) IVPB ONE (16:01)
[2017-10-15] MEDS ORDERED: NEOSTIGMINE METHYLSULFATE 0.5 MG/ML - 10 ML MDV ONE (16:15)
--- NOTE | 2017-10-15 16:35 | OP ---
Operative Note - Note: Operative Date: 10/15/17 Pre-Operative Diagnosis: Intestinal obstruction. Operation: Exploratory laparotomy ,. lysis of adhesions,. release of intestinal obstruction. Surgeon: Faiza Lim [place]: Sudeep Burch Anesthesia: General Estimated Blood Loss (mls): 10 Operative Report Dictated: Yes
[2017-10-15] MEDS ORDERED: morphine SULFATE 4 MG/ML VIAL IVPUSH PRN (16:48)
[2017-10-15] MEDS ORDERED: LACTATED RINGERS SOLUTION 1,000 ML IV SCH (17:30)
[2017-10-15] MEDS: DEXTROSE 5%-LACTATED RINGERS 1,000 ML IV SCH ×3 (19:30→21:00)
--- NOTE | 2017-10-15 22:02 | OP ---
DATE OF OPERATION: 10/15/2017 PREOPERATIVE DIAGNOSIS: Persistent intestinal obstruction, not relieved by nasogastric aspiration and intravenous fluids. POSTOPERATIVE DIAGNOSIS: Intestinal obstruction secondary to adhesions and kinking of the small intestine. OPERATIVE PROCEDURE: Exploratory laparotomy, extensive lysis of adhesions, and release of intestinal obstruction. SURGEON: Lizette Lim MD FRUIT PITTER: CAMILA Paris ANESTHESIA: General. OPERATIVE DESCRIPTION: The patient is a 67-year-old man with multiple previous abdominal operations, the last one for lysis of adhesions about 3 years ago with hepatitis C, was admitted for intestinal obstruction. Patient was not relieved with nasogastric aspiration and intravenous fluids. He was getting more pain, and abdominal x-ray shows worsening of the intestinal obstruction. Patient was, therefore, brought in for laparotomy. Consent was obtained. Risks, benefits, and complications were discussed with the patient. Patient had an NG tube placed on admission. Patient was given general anesthesia. Courtney catheter was placed in the bladder. The abdomen was painted and draped. A vertical midline incision was made above and below the umbilicus. This was deepened through the skin, subcutaneous tissue, and the linea alba. The abdominal cavity was entered. Below the umbilicus, there was adhesion of small intestine, which was collapsed, that was adherent to the anterior abdominal wall. This was carefully lysed with sharp and blunt dissection, releasing it from the abdominal wall. Further, the distal loop of small intestine was collapsed from a kink of the small intestine towards the root of the mesentery. This was carefully lysed again with blunt and sharp dissection, thus releasing the intestinal obstruction. This allowed the proximal dilated small intestine to clear the obstruction and distend the collapsed distal small intestine. There was a long segment of small intestine that was involved with adhesions, that was released, and links removed. This was followed all the way to the ileocecal valve. All adhesions were lysed. Multiple areas of previous small intestinal anastamosis were noted.The cecum, ascending colon, transverse colon, and descending colon were normal. Proximally, the dilated loops of bowel were run all the way to the ligament of Treitz, and there was no kinking or adhesions or blockage of the small intestine. The NG tube was confirmed in the body of the stomach. The transverse colon was normal. At the completion of the procedure, the abdomen was closed with continuous number 1 loop PDS sutures. Sponge count and instrument count was correct. The skin was approximated with candice. Patient tolerated the procedure well, was extubated, and sent to the recovery room in satisfactory and stable condition. Kelly [id number] MTDD
[2017-10-15] MEDS: morphine SULFATE 4 MG/ML VIAL IVPUSH PRN (22:08)
--- NOTE | 2017-10-15 23:12 | SURG ---
Surgery Flight Control Manager Note Flight Control Manager: Sudeep Burch PA-C Date of Service: 10/15/17 Diagnosis: Intestinal obstruction. Procedure: Exploratory laparotomy, lysis of adhesions I was present for the entirety of the operative procedure. For further detail, please refer to operative report. Visit type - Case Type Case Type: ED Admission - Emergency Emergency Visit: Yes ED Registration Date: 10/13/17 Care time: The patient presented to the Emergency Department on the above date and was hospitalized for further evaluation of their emergent condition. - New patient This patient is new to me today: Yes Date on this admission: 10/15/17
[2017-10-16] MEDS: ACETAMINOPHEN 1000 MG/100 ML VIAL (NON FORMULARY) IVPB PRN ×2 (00:25→06:38)
[2017-10-16] MEDS: morphine SULFATE 4 MG/ML VIAL IVPUSH PRN ×4 (03:25→21:19)
[2017-10-16] MEDS: DEXTROSE 5%-LACTATED RINGERS 1,000 ML IV SCH ×3 (06:38→23:00)
[2017-10-16 08:09] LABS: BASO % 0.3 % (0-2.0); EOS % 2.7 % (0-4.5); HEMATOCRIT 38.3 % (35.4-49); HEMOGLOBIN 12.5 GM/dL (11.7-16.9); LYMPH % 26.5 % (8-40); MCH 27.3 pg (25.7-33.7); MCHC 32.6 g/dl (32.0-35.9); MEAN CELL VOLUME 83.7 fl (80-96); MEAN PLT VOLUME 8.6 fl (7.5-11.1); MONO % 13.8 % (3.8-10.2); NEUT % 56.7 % (42.8-82.8); PLATELET COUNT 267 K/MM3 (134-434); RBC 4.57 M/mm3 (4.00-5.60); RDW 15.5 % (11.9-15.9); WHITE BLOOD COUNT 5.4 K/mm3 (4.0-10.0)
[2017-10-16 08:22] LABS: CHLORIDE 100 mmol/L (98-107); POTASSIUM 4.2 mmol/L (3.5-5.1); SODIUM 137 mmol/L (136-145)
[2017-10-16 09:11] LABS: ANION GAP 9 (8-16); BLOOD UREA NITROGEN 10 mg/dL (7-18); CO2 28 mmol/L (21-32); GLUCOSE,RANDOM 103 mg/dL (74-106); MAGNESIUM 1.7 mg/dL (1.8-2.4); PHOSPHOROUS 3.3 mg/dL (2.5-4.9)
[2017-10-16] MEDS ORDERED: MAGNESIUM SULF 50% (8.12 MEQ/2 ML-1 GM VIAL) IVPB ONE (09:19)
[2017-10-16] MEDS ORDERED: PT OWN MED DRAWER 7, Y5N ONE (09:39)
[2017-10-16] MEDS: HEPARIN NA (PORCINE) 5,000 UNITS/ML 1ML VIAL SQ SCH ×2 (09:44→21:10)
[2017-10-16] MEDS: FLUTICASONE/SALMETEROL 100 MCG/50 MCG DISKUS IH SCH ×2 (09:44→21:12)
[2017-10-16] MEDS ORDERED: MAGNESIUM SULFATE IN WATER 2 GM/50 ML IVPB IVPB ONE (10:00)
--- NOTE | 2017-10-16 10:11 | PN ---
Progress Note, Physician - Current Medication List Current Medications: Active Medications Acetaminophen (Ofirmev Injection -) 1,000 mg IVPB Q6H PRN PRN Reason: PAIN LEVEL 4 - 6 Last Admin: 10/16/17 06:38 Dose: 1,000 mg Heparin Sodium (Porcine) (Heparin -) 5,000 unit SQ BID COUNTS INCLUDE 234 BEDS AT [facility] Last Admin: 10/16/17 09:44 Dose: 5,000 unit Dextrose/Lactated Ringer's (D5-Lr -) 1,000 mls @ 100 mls/hr IV ASDIR COUNTS INCLUDE 234 BEDS AT [facility] Last Admin: 10/15/17 19:30 Dose: 0 mls Dextrose/Lactated Ringer's (D5-Lr -) 1,000 mls @ 100 mls/hr IV ASDIR COUNTS INCLUDE 234 BEDS AT [facility] Last Admin: 10/16/17 06:38 Dose: 100 mls/hr Magnesium Sulfate (Magnesium Sulf 2 G/50 Ml Bag) 2 gm in 50 mls @ 50 mls/hr IVPB ONCE ONE Stop: 10/16/17 10:59 Morphine Sulfate (Morphine Sulfate) 1 mg IVPUSH Q4H PRN PRN Reason: PAIN LEVEL 6-10 Last Admin: 10/16/17 03:25 Dose: 1 mg Ondansetron HCl (Zofran Injection) 4 mg IVPUSH Q6H PRN PRN Reason: NAUSEA AND/OR VOMITING Last Admin: 10/15/17 22:35 Dose: 4 mg Fluticasone/Salmeterol (Advair 100mcg/50mcg -) 1 puff IH BID [facility]S [facility]CLUDE 234 BEDS AT [facility] Last Admin: 10/16/17 09:44 Dose: Not Given - Objective Vital Signs: Vital Signs Temperature 97.9 F 10/16/17 08:27 Pulse Rate 79 10/16/17 08:27 Respiratory Rate 16 10/16/17 08:27 Blood Pressure 98/66 10/16/17 08:27 O2 Sat by Pulse Oximetry (%) 96 10/15/17 21:00 Labs: CBC, BMP 10/16/17 07:00 10/16/17 07:00 INR, PTT INR 1.22 (0.82-1.09) H 10/14/17 09:40 Problem List - Problems (1) Abdominal pain Code(s): R10.9 - UNSPECIFIED ABDOMINAL PAIN Qualifiers: Abdominal location: right lower quadrant Qualified Code(s): R10.31 - Right lower quadrant pain (2) Intestinal obstruction due to adhesions Code(s): K56.5 - INTESTINAL ADHESIONS WITH OBSTRUCTION (POSTIN * DO NOT USE * (3) Hepatitis C, chronic Code(s): B18.2 - CHRONIC VIRAL HEPATITIS C (4) Asthma Code(s): J45.909 - UNSPECIFIED ASTHMA, UNCOMPLICATED Qualifiers: Asthma severity: mild persistent Asthma complication type: uncomplicated Qualified Code(s): J45.30 - Mild persistent asthma, uncomplicated Assessment/Plan Surgery: Patient is afebrile, NG drainage 500 ml. WBC and chemistry is normal. Out of bed , ambulate , DVT prohpylaxis. Hydrate.
--- NOTE | 2017-10-16 12:22 | PN ---
Physical Exam: SUBJECTIVE: Patient seen and examined. Had exlap yesterday due to failed conservative mx of SBO. No fevers, on pain mx. Yet to pass flatus. OBJECTIVE: Vital Signs Period Temp Pulse Resp BP Sys/Monsalve Pulse Ox Last 24 Hr 97.4 F-100.2 F 69-109 14-20 98-165/66-109 95-100 Vital Signs Temp 97.6 F 10/16/17 14:50 Pulse 75 10/16/17 14:50 Resp 20 10/16/17 14:50 BP 106/72 10/16/17 14:50 Pulse Ox 95 10/16/17 09:00 Intake & Output 10/15/17 10/16/17 10/16/17 23:59 11:59 23:59 Intake Total 2200 1300 50 Output Total 1225 500 Balance 975 800 50 Weight 44.906 kg Intake: IV 2100 1200 D5-1/2Ns - 1,000 ml @ 100 700 mls/hr IV ASDIR EMILY Rx#: [id number] D5-Lr - 1,000 ml @ 100 1200 mls/hr IV ASDIR EMILY Rx#: [id number] IVPB 100 100 50 Output: Gastric Drainage 600 Urine 600 500 Courtney 500 Void 200 Estimated Blood Loss 25 Other: Voiding Method Indwelling Catheter Urinal Urinal Height 1.7 m Body Mass Index (BMI) 15.5 Intake & Output 10/13/17 10/14/17 10/15/17 10/16/17 23:59 23:59 23:59 23:59 Intake Total 1750 2500 3400 1350 Output Total 700 1350 2025 500 Balance 1050 1150 1375 850 Weight 58.967 kg 44.906 kg GENERAL: The patient is awake, alert, and fully oriented, in no mild painful distress (iv tylenol running) . HEAD: Bitemporal wasting ENT: NGT -under suction- nothing drained LUNGS: Breath sounds equal, clear to auscultation bilaterally, no wheezes HEART: Regular rate and rhythm, S1, S2 ABDOMEN: Midline surgical dressing supra and infra umbilical. Marked guarding. Firm, generalized tenderness, hypoactive bowel sounds EXTREMITIES: 2+ pulses, warm, well-perfused, no edema. NEUROLOGICAL: AAOx3. No facial droop Laboratory Results - last 24 hr 10/16/17 10/16/17 07:00 07:00 WBC 5.4 RBC 4.57 Hgb 12.5 Hct 38.3 MCV 83.7 MCH 27.3 MCHC 32.6 RDW 15.5 Plt Count 267 MPV 8.6 Absolute Neuts (auto) 3.1 Neutrophils % 56.7 D Lymphocytes % 26.5 D Monocytes % 13.8 H D Eosinophils % 2.7 D Basophils % 0.3 Nucleated RBC % 0 Sodium 137 Potassium 4.2 Chloride 100 Carbon Dioxide 28 Anion Gap 9 BUN 10 Creatinine 1.0 Random Glucose 103 Calcium 8.0 L Phosphorus 3.3 Magnesium 1.7 L D Current Medications Acetaminophen (Ofirmev Injection -) 1,000 mg IVPB Q6H PRN PRN Reason: PAIN LEVEL 4 - 6 Last Admin: 10/16/17 06:38 Dose: 1,000 mg Heparin Sodium (Porcine) (Heparin -) 5,000 unit SQ BID [facility] Last Admin: 10/16/17 09:44 Dose: 5,000 unit Dextrose/Lactated Ringer's (D5-Lr -) 1,000 mls @ 100 mls/hr IV ASDIR [facility] Last Admin: 10/15/17 19:30 Dose: 0 mls Dextrose/Lactated Ringer's (D5-Lr -) 1,000 mls @ 100 mls/hr IV ASDIR [facility] Last Admin: 10/16/17 06:38 Dose: 100 mls/hr Morphine Sulfate (Morphine Sulfate) 1 mg IVPUSH Q4H PRN PRN Reason: PAIN LEVEL 6-10 Last Admin: 10/16/17 11:13 Dose: 1 mg Ondansetron HCl (Zofran Injection) 4 mg IVPUSH Q6H PRN PRN Reason: NAUSEA AND/OR VOMITING Last Admin: 10/15/17 22:35 Dose: 4 mg Fluticasone/Salmeterol (Advair 100mcg/50mcg -) 1 puff IH BID [facility] Last Admin: 10/16/17 09:44 Dose: Not Given Ambulatory Orders Ipratropium/Albuterol Sulfate [Combivent Respimat Inhal [place]] 4 gm IH BID 10/13 Salmeterol/Fluticasone [Advair 100Mcg/50Mcg -] 1 inh PO BID 10/13/17 Imaging: CT abdomen on 6/9: High grade SBO, likely complete, with transition point identified in the midline lower abdomen just upstream from enteroenteric anastomotic sutures and ventral to the common iliac arteries. mildly enlarged prostate gland AXR 10/14: Partial obstruction AXR 10/15: Worsening obstruction ASSESSMENT/PLAN: 67 yo M with PMHx of previous exlap with recurrent SBO, asthma, Hep C, admitted to med-surg for SBO. Recurrent SBO - Now POD1 s/p adhesiolysis - IV tylenol and morphine for pain control - and zofran for n/v - IVF D5/LR@100/hr for NPO and insensible fluid loss @ - Maintain NG suction - Monitor Is and Os - NPO - Surgery consult- Dr Lim apprec recs Asthma - Cont. advair and combivent Hep C - Previously treated in remission FEN - Cont. D5LR 100ml/hr - Cont. to monitor lytes - NPO Prophylaxis - DVT: heparin Dispo - Cont. to monitor on med-surg Visit type - Emergency Visit Emergency Visit: Yes ED Registration Date: 10/13/17 Care time: The patient presented to the Emergency Department on the above date and was hospitalized for further evaluation of their emergent condition. - New Patient This patient is new to me today: No - Critical Care Critical Care patient: No - Discharge Referral Referred to [facility] Med P.C.: No
--- NOTE | 2017-10-16 14:49 | PN ---
Progress Note, Physician Chief Complaint: Pt. pain controlled, no GA complaints. - Current Medication List Current Medications: Active Medications Acetaminophen (Ofirmev Injection -) 1,000 mg IVPB Q6H PRN PRN Reason: PAIN LEVEL 4 - 6 Last Admin: 10/16/17 06:38 Dose: 1,000 mg Heparin Sodium (Porcine) (Heparin -) 5,000 unit SQ BID [facility] Last Admin: 10/16/17 09:44 Dose: 5,000 unit Dextrose/Lactated Ringer's (D5-Lr -) 1,000 mls @ 100 mls/hr IV ASDIR [facility] Last Admin: 10/15/17 19:30 Dose: 0 mls Dextrose/Lactated Ringer's (D5-Lr -) 1,000 mls @ 100 mls/hr IV ASDIR [facility] Last Admin: 10/16/17 06:38 Dose: 100 mls/hr Morphine Sulfate (Morphine Sulfate) 1 mg IVPUSH Q4H PRN PRN Reason: PAIN LEVEL 6-10 Last Admin: 10/16/17 11:13 Dose: 1 mg Ondansetron HCl (Zofran Injection) 4 mg IVPUSH Q6H PRN PRN Reason: NAUSEA AND/OR VOMITING Last Admin: 10/15/17 22:35 Dose: 4 mg Fluticasone/Salmeterol (Advair 100mcg/50mcg -) 1 puff IH BID [facility] Last Admin: 10/16/17 09:44 Dose: Not Given - Objective Vital Signs: Vital Signs Temperature 97.9 F 10/16/17 08:27 Pulse Rate 79 10/16/17 08:27 Respiratory Rate 16 10/16/17 08:27 Blood Pressure 98/66 10/16/17 08:27 O2 Sat by Pulse Oximetry (%) 95 10/16/17 09:00 Constitutional: Yes: Well Nourished, No Distress, Calm Musculoskeletal: Yes: WNL Neurological: Yes: WNL, Alert, Oriented Labs: CBC, BMP 10/16/17 07:00 10/16/17 07:00 INR, PTT INR 1.22 (0.82-1.09) H 10/14/17 09:40 Assessment/Plan POD#1 s/p exploratory laparotomy with lysis of adhesions under GA. Doing well. D/C from anesthesia care.
--- NOTE | 2017-10-16 16:51 | PN ---
Teaching Attending Note Name of Resident: Cristina Pozo ATTENDING PHYSICIAN STATEMENT I saw and evaluated the patient. I reviewed the resident's note and discussed the case with the resident. I agree with the resident's findings and plan as documented. SUBJECTIVE:c/o severe diffuse abdominal pain, no relief with pain medication. pain has been increasing over the past few hours. states he has not urinated since sandhu has been removed. deneis Cp, SOB, fever, chills, no flatus/ belching. no BM OBJECTIVE: Last Vital Signs Temp Pulse Resp BP Pulse Ox 97.6 F 75 20 106/72 95 10/16/17 14:50 10/16/17 14:50 10/16/17 14:50 10/16/17 14:50 10/16/17 09:00 General mild distress due to pain CV S1 S2 RRR no murmur/rub/gallop Lungs CTA anteriorly Abdomen soft diffuse tenderness even with barely placing stethescope on the abdomen. no BS appreciated. slight distention noted below the umbilicus ASSESSMENT AND PLAN: 67 yo M with PMHx for former heavy smoker, COPD, appendectomy, recurrent SBO, comes with high grade SBO 1, Acute high grade Small bowel obstruction- s/p exlap 10/15 with lysis of adhesions. severe abdominal pain with no improvement iwth pain medication. believe he may have some urinary retention. refusing bladder scan. will re- insert sandhu at this time. increase morphine to 2mg Q3H prn. if pain continues to worsen after sandhu placement obtain AXR to further evaluate. cont NPO, IVF, NGT to suction. surgery on board. 2. COPD- no signs of acute exacerbation. cont inhalers 3. Former heavy smoker 4. DVT pppx- hep sq
[2017-10-16] MEDS ORDERED: MORPHINE SULFATE 2 MG/ML VIAL IVPUSH ONE (17:00)
[2017-10-16] MEDS ORDERED: morphine SULFATE 4 MG/ML VIAL IVPUSH PRN (17:01)
[2017-10-17] MEDS: morphine SULFATE 4 MG/ML VIAL IVPUSH PRN ×5 (03:00→21:47)
[2017-10-17] MEDS: DEXTROSE 5%-LACTATED RINGERS 1,000 ML IV SCH ×2 (03:07→03:27)
[2017-10-17] MEDS: ONDANSETRON 4 MG/2 ML VIAL IVPUSH PRN (06:58)
[2017-10-17 07:48] LABS: BASO % 0.3 % (0-2.0); EOS % 3.1 % (0-4.5); HEMATOCRIT 34.5 % (35.4-49); HEMOGLOBIN 11.3 GM/dL (11.7-16.9); LYMPH % 16.9 % (8-40); MCH 27.2 pg (25.7-33.7); MCHC 32.7 g/dl (32.0-35.9); MEAN CELL VOLUME 83.2 fl (80-96); MONO % 12.1 % (3.8-10.2); NEUT % 67.6 % (42.8-82.8); PLATELET COUNT 248 K/MM3 (134-434); RBC 4.15 M/mm3 (4.00-5.60); RDW 15.6 % (11.9-15.9); WHITE BLOOD COUNT 7.5 K/mm3 (4.0-10.0)
[2017-10-17 08:01] LABS: CHLORIDE 101 mmol/L (98-107); SODIUM 137 mmol/L (136-145)
[2017-10-17 08:15] LABS: ALBUMIN 2.5 g/dl (3.4-5.0); ALK PHOS 48 U/L (45-117); ANION GAP 7 (8-16); BILIRUBIN,TOTAL 0.4 mg/dL (0.2-1.0); BLOOD UREA NITROGEN 9 mg/dL (7-18); CALCIUM 7.8 mg/dL (8.5-10.1); CO2 29 mmol/L (21-32); CREATININE 0.7 mg/dL (0.7-1.3); GLUCOSE,RANDOM 103 mg/dL (74-106); MAGNESIUM 1.9 mg/dL (1.8-2.4); PHOSPHOROUS 2.4 mg/dL (2.5-4.9); SGOT/AST 17 U/L (15-37); SGPT/ALT 14 U/L (12-78); TOT PROT 5.9 g/dl (6.4-8.2)
--- NOTE | 2017-10-17 08:22 | PN ---
Physical Exam: SUBJECTIVE: Patient seen and examined. Feels better. No fevers. Has some nausea. Pain controlled with meds. Said he has passed flatus. NGT draining minimally OBJECTIVE: Vital Signs Period Temp Pulse Resp BP Sys/Monsalve Pulse Ox Last 24 Hr 97.3 F-99.0 F 70-79 16-20 98-122/66-77 95-96 Vital Signs Temp 97.3 F L 10/17/17 06:00 Pulse 74 10/17/17 06:00 Resp 18 10/17/17 06:00 BP 115/77 10/17/17 06:00 Pulse Ox 96 10/16/17 20:12 Intake & Output 10/16/17 10/16/17 10/17/17 11:59 23:59 11:59 Intake Total 1300 1150 1200 Output Total 500 500 400 Balance 800 650 800 Weight 45.501 kg Intake: IV 1200 1100 1200 D5-Lr - 1,000 ml @ 100 1200 1100 1200 mls/hr IV ASDIR EMILY Rx#: [id number] IVPB 100 50 Output: Gastric Drainage 50 Urine 500 500 350 Courtney 500 500 350 Other: Voiding Method Urinal Indwelling Catheter Bowel Movement No Weight Measurement Method Built in [facility] Intake & Output 10/14/17 10/15/17 10/16/17 10/17/17 23:59 23:59 23:59 23:59 Intake Total 2500 3400 2450 1200 Output Total 1350 2025 1000 400 Balance 1150 1375 1450 800 Weight 44.906 kg 45.501 kg GENERAL: The patient is awake, alert, NGT in place with pinkish fluid HEAD: Bilateral temporal wasting ENT: NGT in place LUNGS: Breath sounds equal, clear to auscultation bilaterally HEART: Regular rate and rhythm, S1, S2 ABDOMEN: Midline surgical dressing in place, clean, dry. Soft, appropriately tender, nondistended, hypoactive bowel sounds, minimal guarding EXTREMITIES: 2+ pulses, warm, well-perfused, no edema. NEUROLOGICAL: AAOx3, able to move all limbs, and ambulate independently CBC, BMP 10/17/17 06:00 10/17/17 06:00 Laboratory Results - last 24 hr 10/16/17 10/17/17 07:00 06:00 WBC 7.5 D RBC 4.15 Hgb 11.3 L Hct 34.5 L MCV 83.2 MCH 27.2 MCHC 32.7 RDW 15.6 Plt Count 248 MPV 9.0 Absolute Neuts (auto) 5.1 Neutrophils % 67.6 Lymphocytes % 16.9 D Monocytes % 12.1 H Eosinophils % 3.1 Basophils % 0.3 Nucleated RBC % 0 Sodium 137 Potassium 4.2 Chloride 100 Carbon Dioxide 28 Anion Gap 9 BUN 10 Creatinine 1.0 Random Glucose 103 Calcium 8.0 L Phosphorus 3.3 Magnesium 1.7 L D Current Medications Acetaminophen (Ofirmev Injection -) 1,000 mg IVPB Q6H PRN PRN Reason: PAIN LEVEL 4 - 6 Last Admin: 10/16/17 06:38 Dose: 1,000 mg Heparin Sodium (Porcine) (Heparin -) 5,000 unit SQ BID [facility] Last Admin: 10/17/17 11:23 Dose: 5,000 unit Dextrose/Lactated Ringer's (D5-Lr -) 1,000 mls @ 100 mls/hr IV ASDIR [facility] Last Admin: 10/17/17 03:27 Dose: 100 mls/hr Dextrose/Lactated Ringer's (D5-Lr -) 1,000 mls @ 100 mls/hr IV ASDIR [facility] Last Admin: 10/16/17 23:00 Dose: Not Given Morphine Sulfate (Morphine Sulfate) 1 mg IVPUSH Q3H PRN PRN Reason: PAIN LEVEL 7-10 Last Admin: 10/17/17 13:54 Dose: 1 mg Fluticasone/Salmeterol (Advair 100mcg/50mcg -) 1 puff IH BID [facility] Last Admin: 10/17/17 09:19 Dose: Not Given Ambulatory Orders Ipratropium/Albuterol Sulfate [Combivent Respimat Inhal Calhan] 4 gm IH BID 10/13 Salmeterol/Fluticasone [Advair 100Mcg/50Mcg -] 1 inh PO BID 10/13/17 Imaging: CT abdomen on 10/13: High grade SBO, likely complete, with transition point identified in the midline lower abdomen just upstream from enteroenteric anastomotic sutures and ventral to the common iliac arteries. mildly enlarged prostate gland AXR 10/14: Partial obstruction AXR 10/15: Worsening obstruction ASSESSMENT/PLAN: 67 yo M with PMHx of previous exlap with recurrent SBO, asthma, Hep C, admitted to med-surg for SBO. Recurrent SBO - Now POD2 s/p adhesiolysis - IV tylenol and morphine for pain control - and zofran for n/v - IVF D5/LR@100/hr for NPO and insensible fluid loss - Maintain NG suction - Monitor Is and Os - NPO - Surgery consult- Dr Lim apprec recs Asthma - Cont. advair and combivent Hep C - Previously treated in remission FEN - Cont. D5LR 100ml/hr - Cont. to monitor lytes - NPO Prophylaxis - DVT: heparin Dispo - Cont. to monitor on med-surg Visit type - Emergency Visit Emergency Visit: Yes ED Registration Date: 10/13/17 Care time: The patient presented to the Emergency Department on the above date and was hospitalized for further evaluation of their emergent condition. - New Patient This patient is new to me today: No - Critical Care Critical Care patient: No - Discharge Referral Referred to [facility] Med P.C.: No
[2017-10-17] MEDS ORDERED: SODIUM PHOSPHATE - 0 MM in DEXTROSE 5%-WATER - 250 ML IVPB ONE (08:42)
[2017-10-17] MEDS: FLUTICASONE/SALMETEROL 100 MCG/50 MCG DISKUS IH SCH ×2 (09:19→21:48)
[2017-10-17] MEDS ORDERED: POTASSIUM PHOSPHATE 30 MM in DEXTROSE 5%-WATER - 500 ML IVPB ONE (10:00)
[2017-10-17] MEDS: HEPARIN NA (PORCINE) 5,000 UNITS/ML 1ML VIAL SQ SCH ×2 (11:23→21:47)
--- NOTE | 2017-10-17 12:46 | PN ---
Teaching Attending Note Name of Resident: Cristina Pozo ATTENDING PHYSICIAN STATEMENT I saw and evaluated the patient. I reviewed the resident's note and discussed the case with the resident. I agree with the resident's findings and plan as documented. SUBJECTIVE:pain has improved. having some flatus. requesting to eat. denies CP, SOB, fever, chills, N/V/C/D OBJECTIVE: Last Vital Signs Temp Pulse Resp BP Pulse Ox 98.7 F 72 18 109/68 98 10/17/17 10:00 10/17/17 10:00 10/17/17 10:00 10/17/17 10:00 10/17/17 09:00 Intake & Output 10/14/17 10/15/17 10/16/17 10/17/17 23:59 23:59 23:59 23:59 Intake Total 2500 3400 2450 1200 Output Total 1350 2025 1000 480 Balance 1150 1375 1450 720 Weight 99 lb 100 lb 5 oz General NAD, sitting up comfortable CV S1 S2 RRR no murmur/rub/gallop Lungs CTA anteriorly Abdomen soft, diffuse tenderness to light touch. much improved since yesterday. midline bandage c/d/i. no BS appreciated. ASSESSMENT AND PLAN: 67 yo M with PMHx for former heavy smoker, COPD, appendectomy, recurrent SBO, comes with high grade SBO 1, Acute high grade Small bowel obstruction- s/p exlap 10/15 with lysis of adhesions. minimal output from NGT. clinically improved. cont NPO, IVF and pain control. will allow surgery to determine if NGT should be clamped vs pulled. will d/c sandhu. surgery on board. 2. COPD- no signs of acute exacerbation. cont inhalers 3. Former heavy smoker 4. DVT pppx- hep sq
--- NOTE | 2017-10-17 15:42 | PN ---
Progress Note, Physician - Current Medication List Current Medications: Active Medications Acetaminophen (Ofirmev Injection -) 1,000 mg IVPB Q6H PRN PRN Reason: PAIN LEVEL 4 - 6 Last Admin: 10/16/17 06:38 Dose: 1,000 mg Heparin Sodium (Porcine) (Heparin -) 5,000 unit SQ BID [facility] Last Admin: 10/17/17 11:23 Dose: 5,000 unit Dextrose/Lactated Ringer's (D5-Lr -) 1,000 mls @ 100 mls/hr IV ASDIR [facility] Last Admin: 10/17/17 03:27 Dose: 100 mls/hr Dextrose/Lactated Ringer's (D5-Lr -) 1,000 mls @ 100 mls/hr IV ASDIR [facility] Last Admin: 10/16/17 23:00 Dose: Not Given Morphine Sulfate (Morphine Sulfate) 1 mg IVPUSH Q3H PRN PRN Reason: PAIN LEVEL 7-10 Last Admin: 10/17/17 13:54 Dose: 1 mg Fluticasone/Salmeterol (Advair 100mcg/50mcg -) 1 puff IH BID [facility] Last Admin: 10/17/17 09:19 Dose: Not Given - Objective Vital Signs: Vital Signs Temperature 98.8 F 10/17/17 14:31 Pulse Rate 75 10/17/17 14:31 Respiratory Rate 18 10/17/17 14:31 Blood Pressure 112/72 10/17/17 14:31 O2 Sat by Pulse Oximetry (%) 98 10/17/17 09:00 Labs: CBC, BMP 10/17/17 06:00 10/17/17 06:00 INR, PTT INR 1.22 (0.82-1.09) H 10/14/17 09:40 Problem List - Problems (1) Abdominal pain Code(s): R10.9 - UNSPECIFIED ABDOMINAL PAIN Qualifiers: Abdominal location: right lower quadrant Qualified Code(s): R10.31 - Right lower quadrant pain (2) Intestinal obstruction due to adhesions Code(s): K56.5 - INTESTINAL ADHESIONS WITH OBSTRUCTION (POSTIN * DO NOT USE * (3) Hepatitis C, chronic Code(s): B18.2 - CHRONIC VIRAL HEPATITIS C (4) Asthma Code(s): J45.909 - UNSPECIFIED ASTHMA, UNCOMPLICATED Qualifiers: Asthma severity: mild persistent Asthma complication type: uncomplicated Qualified Code(s): J45.30 - Mild persistent asthma, uncomplicated Assessment/Plan Surgery: Patient is afebrile. Wound is clean. Abdomen is soft. Patient claims he is passing flatus. Labs; Normal Gastric drainage 50 ml Continue nasogastric aspiration, IV fluids. No calf tenderness.
[2017-10-17] MEDS ORDERED: ONDANSETRON 4 MG/2 ML VIAL IVPUSH PRN (20:24)
[2017-10-18] MEDS ORDERED: PT OWN MED DRAWER 7, Y5N ONE (09:45)
[2017-10-18] MEDS: FLUTICASONE/SALMETEROL 100 MCG/50 MCG DISKUS IH SCH ×2 (10:11→22:29)
[2017-10-18] MEDS: HEPARIN NA (PORCINE) 5,000 UNITS/ML 1ML VIAL SQ SCH ×2 (10:12→22:29)
[2017-10-18] MEDS: morphine SULFATE 4 MG/ML VIAL IVPUSH PRN ×2 (10:35→22:26)
--- NOTE | 2017-10-18 11:24 | PN ---
Physical Exam: SUBJECTIVE: Patient seen and examined. Still minimal NGT drainage. No fevers, pain controlled with medication. No more nausea. Passed flatus, yet to pass stool. OBJECTIVE: Vital Signs Period Temp Pulse Resp BP Sys/Monsalve Pulse Ox Last 24 Hr 98.8 F-99.0 F 69-75 18-20 112-124/72-76 98 Vital Signs Temp 98.2 F 10/18/17 14:00 Pulse 57 L 10/18/17 14:00 Resp 20 10/17/17 23:13 BP 118/72 10/18/17 14:00 Pulse Ox 98 10/17/17 21:00 Intake & Output 10/17/17 10/18/17 10/18/17 23:59 11:59 23:59 Intake Total 0 240 Output Total 400 Balance 0 -160 Intake: Oral 0 240 Output: Urine 400 Void 400 Other: Voiding Method Urinal Bowel Movement No No Intake & Output 10/15/17 10/16/17 10/17/17 10/18/17 23:59 23:59 23:59 23:59 Intake Total 3400 2450 1200 240 Output Total 2025 1000 480 400 Balance 1375 1450 720 -160 Weight 44.906 kg 45.501 kg GENERAL: The patient is awake, alert, and fully oriented, NGT in place under suction with minimal serosanguinous drainage HEAD: Bitemporal wasting LUNGS: Reduced Breath sounds HEART: Regular rate and rhythm, S1, S2 without murmur ABDOMEN: Midline candice in place. Wound clean and dry. Soft, ,mildly tender, nondistended, normoactive bowel sounds, minimal guarding EXTREMITIES: 2+ pulses, warm, well-perfused, no edema. NEUROLOGICAL: AAOx 3 . Moves all extremities Laboratory Last Values WBC 7.5 K/mm3 (4.0-10.0) D 10/17/17 06:00 RBC 4.15 M/mm3 (4.00-5.60) 10/17/17 06:00 Hgb 11.3 GM/dL (11.7-16.9) L 10/17/17 06:00 Hct 34.5 % (35.4-49) L 10/17/17 06:00 MCV 83.2 fl (80-96) 10/17/17 06:00 MCH 27.2 pg (25.7-33.7) 10/17/17 06:00 MCHC 32.7 g/dl (32.0-35.9) 10/17/17 06:00 RDW 15.6 % (11.9-15.9) 10/17/17 06:00 Plt Count 248 K/MM3 (134-434) 10/17/17 06:00 MPV 9.0 fl (7.5-11.1) 10/17/17 06:00 Absolute Neuts (auto) 5.1 # 10/17/17 06:00 Neutrophils % 67.6 % (42.8-82.8) 10/17/17 06:00 Lymphocytes % 16.9 % (8-40) D 10/17/17 06:00 Monocytes % 12.1 % (3.8-10.2) H 10/17/17 06:00 Eosinophils % 3.1 % (0-4.5) 10/17/17 06:00 Basophils % 0.3 % (0-2.0) 10/17/17 06:00 Nucleated RBC % 0 % (0-0) 10/17/17 06:00 PT with INR 13.80 SEC (9.7-13.0) H 10/14/17 09:40 INR 1.22 (0.82-1.09) H 10/14/17 09:40 PTT (Actin FS) 30.7 SECONDS (26.9-34.4) 10/14/17 09:40 Sodium 137 mmol/L (136-145) 10/17/17 06:00 Potassium 4.0 mmol/L (3.5-5.1) 10/17/17 06:00 Chloride 101 mmol/L (98-107) 10/17/17 06:00 Carbon Dioxide 29 mmol/L (21-32) 10/17/17 06:00 Anion Gap 7 (8-16) L 10/17/17 06:00 BUN 9 mg/dL (7-18) 10/17/17 06:00 Creatinine 0.7 mg/dL (0.7-1.3) D 10/17/17 06:00 Creat Clearance w eGFR > 60 (>60) 10/17/17 06:00 Random Glucose 103 mg/dL (74-106) 10/17/17 06:00 Lactic Acid 1.3 mmol/L (0.0-2.0) 10/14/17 09:40 Calcium 7.8 mg/dL (8.5-10.1) L 10/17/17 06:00 Phosphorus 2.4 mg/dL (2.5-4.9) L D 10/17/17 06:00 Magnesium 1.9 mg/dL (1.8-2.4) 10/17/17 06:00 Total Bilirubin 0.4 mg/dL (0.2-1.0) 10/17/17 06:00 AST 17 U/L (15-37) 10/17/17 06:00 ALT 14 U/L (12-78) D 10/17/17 06:00 Alkaline Phosphatase 48 U/L (45-117) D 10/17/17 06:00 Total Protein 5.9 g/dl (6.4-8.2) L D 10/17/17 06:00 Albumin 2.5 g/dl (3.4-5.0) L D 10/17/17 06:00 Blood Type A POSITIVE 10/13/17 12:26 Antibody Screen Negative 10/13/17 12:26 Active Medications Generic Name Dose Route Start Last Admin Trade Name Freq PRN Reason Stop Dose Admin Acetaminophen 1,000 mg 10/15/17 17:11 10/16/17 06:38 Ofirmev Injection - IVPB 1,000 mg Q6H PRN Administration PAIN LEVEL 4 - 6 Heparin Sodium (Porcine) 5,000 unit 10/15/17 22:00 10/18/17 10:12 Heparin - SQ 5,000 unit BID EMILY Administration Dextrose/Lactated Ringer's 1,000 mls @ 100 mls/hr 10/15/17 17:00 10/17/17 03: 27 D5-Lr - IV 100 mls/hr ASDIR EMILY Administration Dextrose/Lactated Ringer's 1,000 mls @ 100 mls/hr 10/15/17 20:42 10/16/17 23: 00 D5-Lr - IV Not Given ASDIR EMILY Morphine Sulfate 1 mg 10/16/17 18:35 10/18/17 10:35 Morphine Sulfate IVPUSH 1 mg Q3H PRN Administration PAIN LEVEL 7-10 Ondansetron HCl 4 mg 10/17/17 20:24 10/17/17 20:33 Zofran Injection IVPUSH 4 mg Q6H PRN Administration NAUSEA Fluticasone/Salmeterol 1 puff 10/15/17 22:00 10/18/17 10:11 Advair 100mcg/50mcg - IH 1 inhaler BID EMILY Administration Current Medications Acetaminophen (Ofirmev Injection -) 1,000 mg IVPB Q6H PRN PRN Reason: PAIN LEVEL 4 - 6 Last Admin: 10/18/17 15:22 Dose: 1,000 mg Heparin Sodium (Porcine) (Heparin -) 5,000 unit SQ BID [facility] Last Admin: 10/18/17 10:12 Dose: 5,000 unit Dextrose/Lactated Ringer's (D5-Lr -) 1,000 mls @ 100 mls/hr IV ASDIR [facility] Last Admin: 10/17/17 03:27 Dose: 100 mls/hr Dextrose/Lactated Ringer's (D5-Lr -) 1,000 mls @ 100 mls/hr IV ASDIR [facility] Last Admin: 10/18/17 15:23 Dose: 100 mls/hr Potassium Phosphate 30 mm/ (Dextrose) 510 mls @ 63.75 mls/hr IVPB ONCE ONE Stop: 10/19/17 01:29 Morphine Sulfate (Morphine Sulfate) 1 mg IVPUSH Q3H PRN PRN Reason: PAIN LEVEL 7-10 Last Admin: 10/18/17 10:35 Dose: 1 mg Ondansetron HCl (Zofran Injection) 4 mg IVPUSH Q6H PRN PRN Reason: NAUSEA Last Admin: 10/17/17 20:33 Dose: 4 mg Fluticasone/Salmeterol (Advair 100mcg/50mcg -) 1 puff IH BID [facility] Last Admin: 10/18/17 10:11 Dose: 1 inhaler Imaging: CT abdomen on 10/13: High grade SBO, likely complete, with transition point identified in the midline lower abdomen just upstream from enteroenteric anastomotic sutures and ventral to the common iliac arteries. mildly enlarged prostate gland AXR 10/14: Partial obstruction AXR 10/15: Worsening obstruction ASSESSMENT/PLAN: 67 yo M with PMHx of previous exlap with recurrent SBO, asthma, Hep C, admitted to med-surg for SBO. Recurrent SBO - s/p adhesiolysis () - IV tylenol and morphine for pain control - and zofran for n/v - IVF D5/LR@100/hr for NPO and insensible fluid loss - NG suction per surgery - was removed - Monitor Is and Os - Pt started on clears - Surgery consult- Dr Lim apprec recs Asthma - Cont. advair and combivent Hep C - Previously treated in remission FEN - Cont. D5LR 100ml/hr - Cont. to monitor lytes - NPO Prophylaxis - DVT: heparin Dispo - Cont. to monitor on med-surg Visit type - Emergency Visit Emergency Visit: Yes ED Registration Date: 10/13/17 Care time: The patient presented to the Emergency Department on the above date and was hospitalized for further evaluation of their emergent condition. - New Patient This patient is new to me today: No - Critical Care Critical Care patient: No - Discharge Referral Referred to [facility] Med P.C.: No
--- NOTE | 2017-10-18 12:09 | PN ---
Teaching Attending Note Name of Resident: Cristina Pozo ATTENDING PHYSICIAN STATEMENT I saw and evaluated the patient. I reviewed the resident's note and discussed the case with the resident. I agree with the resident's findings and plan as documented. SUBJECTIVE:continues to have pain but states improved with pain medication. denies CP, SOB, fever, chills, N/V/C/D, no flatus or BM OBJECTIVE: Last Vital Signs Temp Pulse Resp BP Pulse Ox 99.0 F 69 20 124/76 98 10/17/17 23:13 10/17/17 23:13 10/17/17 23:13 10/17/17 23:13 10/17/17 21:00 Intake & Output 10/15/17 10/16/17 10/17/17 10/18/17 23:59 23:59 23:59 23:59 Intake Total 3400 2450 1200 Output Total 2024 1000 480 Balance 1375 1450 720 Weight 99 lb 100 lb 5 oz General NAD, CV S1 S2 RRR no murmur/rub/gallop Lungs CTA anteriorly Abdomen soft, diffuse tenderness to light touch. midline candice with good approximation of skin, no active leaking. hypoactive BS ASSESSMENT AND PLAN: 67 yo M with PMHx for former heavy smoker, COPD, appendectomy, recurrent SBO, comes with high grade SBO 1, Acute high grade Small bowel obstruction- s/p exlap 10/15 with lysis of adhesions. minimal output from NGT. clinically stable. +BS but no flatus. will cont current management per surgery.. cont NPO, IVF and pain control. 2. COPD- no signs of acute exacerbation. cont inhalers 3. Former heavy smoker 4. DVT pppx- hep sq
[2017-10-18] MEDS: ACETAMINOPHEN 1000 MG/100 ML VIAL (NON FORMULARY) IVPB PRN (15:22)
[2017-10-18] MEDS: DEXTROSE 5%-LACTATED RINGERS 1,000 ML IV SCH (15:23)
--- NOTE | 2017-10-18 16:00 | PN ---
Progress Note, Physician - Current Medication List Current Medications: Active Medications Acetaminophen (Ofirmev Injection -) 1,000 mg IVPB Q6H PRN PRN Reason: PAIN LEVEL 4 - 6 Last Admin: 10/18/17 15:22 Dose: 1,000 mg Heparin Sodium (Porcine) (Heparin -) 5,000 unit SQ BID [facility] Last Admin: 10/18/17 10:12 Dose: 5,000 unit Dextrose/Lactated Ringer's (D5-Lr -) 1,000 mls @ 100 mls/hr IV ASDIR [facility] Last Admin: 10/17/17 03:27 Dose: 100 mls/hr Dextrose/Lactated Ringer's (D5-Lr -) 1,000 mls @ 100 mls/hr IV ASDIR [facility] Last Admin: 10/18/17 15:23 Dose: 100 mls/hr Morphine Sulfate (Morphine Sulfate) 1 mg IVPUSH Q3H PRN PRN Reason: PAIN LEVEL 7-10 Last Admin: 10/18/17 10:35 Dose: 1 mg Ondansetron HCl (Zofran Injection) 4 mg IVPUSH Q6H PRN PRN Reason: NAUSEA Last Admin: 10/17/17 20:33 Dose: 4 mg Fluticasone/Salmeterol (Advair 100mcg/50mcg -) 1 puff IH BID [facility] Last Admin: 10/18/17 10:11 Dose: 1 inhaler - Objective Vital Signs: Vital Signs Temperature 98.2 F 10/18/17 14:00 Pulse Rate 57 L 10/18/17 14:00 Respiratory Rate 20 10/17/17 23:13 Blood Pressure 118/72 10/18/17 14:00 O2 Sat by Pulse Oximetry (%) 98 10/17/17 21:00 Labs: CBC, BMP 10/17/17 06:00 10/17/17 06:00 INR, PTT INR 1.22 (0.82-1.09) H 10/14/17 09:40 Problem List - Problems (1) Abdominal pain Code(s): R10.9 - UNSPECIFIED ABDOMINAL PAIN Qualifiers: Abdominal location: right lower quadrant Qualified Code(s): R10.31 - Right lower quadrant pain (2) Intestinal obstruction due to adhesions Code(s): K56.5 - INTESTINAL ADHESIONS WITH OBSTRUCTION (POSTIN * DO NOT USE * (3) Hepatitis C, chronic Code(s): B18.2 - CHRONIC VIRAL HEPATITIS C (4) Asthma Code(s): J45.909 - UNSPECIFIED ASTHMA, UNCOMPLICATED Qualifiers: Asthma severity: mild persistent Asthma complication type: uncomplicated Qualified Code(s): J45.30 - Mild persistent asthma, uncomplicated Assessment/Plan Surgery: PO day # 4 Patient is afebrile, NG drainage only 50 ml. Drain is removed Abdominal wound is clean Resume feeding with clear liquids.
[2017-10-18] MEDS ORDERED: POTASSIUM PHOSPHATE 30 MM in DEXTROSE 5%-WATER - 500 ML IVPB ONE (17:30)
[2017-10-19] MEDS: morphine SULFATE 4 MG/ML VIAL IVPUSH PRN (02:24)
[2017-10-19] MEDS: ACETAMINOPHEN 1000 MG/100 ML VIAL (NON FORMULARY) IVPB PRN (06:48)
--- NOTE | 2017-10-19 08:26 | PN ---
Progress Note, Physician - Current Medication List Current Medications: Active Medications Heparin Sodium (Porcine) (Heparin -) 5,000 unit SQ BID [facility] Last Admin: 10/18/17 22:29 Dose: 5,000 unit Dextrose/Lactated Ringer's (D5-Lr -) 1,000 mls @ 100 mls/hr IV ASDIR [facility] Last Admin: 10/17/17 03:27 Dose: 100 mls/hr Dextrose/Lactated Ringer's (D5-Lr -) 1,000 mls @ 100 mls/hr IV ASDIR [facility] Last Admin: 10/18/17 15:23 Dose: 100 mls/hr Morphine Sulfate (Morphine Sulfate) 1 mg IVPUSH Q3H PRN PRN Reason: PAIN LEVEL 7-10 Last Admin: 10/19/17 02:24 Dose: 1 mg Ondansetron HCl (Zofran Injection) 4 mg IVPUSH Q6H PRN PRN Reason: NAUSEA Last Admin: 10/17/17 20:33 Dose: 4 mg Fluticasone/Salmeterol (Advair 100mcg/50mcg -) 1 puff IH BID [facility] Last Admin: 10/18/17 22:29 Dose: Not Given - Objective Vital Signs: Vital Signs Temperature 98.6 F 10/19/17 05:44 Pulse Rate 60 10/19/17 05:44 Respiratory Rate 20 10/19/17 05:44 Blood Pressure 130/66 10/19/17 05:44 O2 Sat by Pulse Oximetry (%) 98 10/18/17 21:00 Labs: INR, PTT INR 1.22 (0.82-1.09) H 10/14/17 09:40 Problem List - Problems (1) Abdominal pain Code(s): R10.9 - UNSPECIFIED ABDOMINAL PAIN Qualifiers: Abdominal location: right lower quadrant Qualified Code(s): R10.31 - Right lower quadrant pain (2) Intestinal obstruction due to adhesions Code(s): K56.5 - INTESTINAL ADHESIONS WITH OBSTRUCTION (POSTIN * DO NOT USE * (3) Hepatitis C, chronic Code(s): B18.2 - CHRONIC VIRAL HEPATITIS C (4) Asthma Code(s): J45.909 - UNSPECIFIED ASTHMA, UNCOMPLICATED Qualifiers: Asthma severity: mild persistent Asthma complication type: uncomplicated Qualified Code(s): J45.30 - Mild persistent asthma, uncomplicated Assessment/Plan Surgery: Patient is afebrile, tolerating feeding, Refuses to ambulate. Wound is clean. Progress diet. Ambualte.
[2017-10-19 08:36] LABS: BASO % 0.5 % (0-2.0); EOS % 3.6 % (0-4.5); HEMATOCRIT 34.9 % (35.4-49); HEMOGLOBIN 11.3 GM/dL (11.7-16.9); LYMPH % 28.1 % (8-40); MCH 27.2 pg (25.7-33.7); MCHC 32.3 g/dl (32.0-35.9); MEAN CELL VOLUME 84.2 fl (80-96); MONO % 9.3 % (3.8-10.2); NEUT % 58.5 % (42.8-82.8); RBC 4.14 M/mm3 (4.00-5.60); RDW 15.9 % (11.9-15.9); WHITE BLOOD COUNT 7.2 K/mm3 (4.0-10.0)
[2017-10-19 09:00] LABS: CHLORIDE 103 mmol/L (98-107); POTASSIUM 4.3 mmol/L (3.5-5.1); SODIUM 139 mmol/L (136-145)
[2017-10-19 09:12] LABS: ALBUMIN 2.4 g/dl (3.4-5.0); ALK PHOS 42 U/L (45-117); ANION GAP 9 (8-16); BILIRUBIN,TOTAL 0.2 mg/dL (0.2-1.0); BLOOD UREA NITROGEN 4 mg/dL (7-18); CALCIUM 8.2 mg/dL (8.5-10.1); CO2 27 mmol/L (21-32); CREATININE 0.7 mg/dL (0.7-1.3); GLUCOSE,RANDOM 85 mg/dL (74-106); MAGNESIUM 1.9 mg/dL (1.8-2.4); PHOSPHOROUS 3.2 mg/dL (2.5-4.9); SGOT/AST 17 U/L (15-37); SGPT/ALT 17 U/L (12-78); TOT PROT 5.7 g/dl (6.4-8.2)
[2017-10-19] MEDS: ACETAMINOPHEN 325 MG TABLET (FP) PO PRN ×2 (10:15→19:50)
[2017-10-19] MEDS: oxyCODONE HCL 5 MG TABLET PO PRN ×2 (10:15→19:51)
[2017-10-19] MEDS: HEPARIN NA (PORCINE) 5,000 UNITS/ML 1ML VIAL SQ SCH ×2 (10:16→22:35)
[2017-10-19] MEDS: FLUTICASONE/SALMETEROL 100 MCG/50 MCG DISKUS IH SCH ×2 (10:16→21:40)
[2017-10-19 11:13] LABS: PLATELET ESTIMATE ADEQUATE
[2017-10-19 11:14] LABS: MEAN PLT VOLUME 9.5 fl (7.5-11.1); PLATELET COUNT 210 K/MM3 (134-434)
--- NOTE | 2017-10-19 12:58 | PN ---
Teaching Attending Note Name of Resident: Cristina Haylie Sánchez ATTENDING PHYSICIAN STATEMENT I saw and evaluated the patient. I reviewed the resident's note and discussed the case with the resident. I agree with the resident's findings and plan as documented. SUBJECTIVE:some discomfort while drinking fluids. but no vomiting. states throat feels sore. + flatus. denies Cp, SOB, fever, chills, N/V. admits to 20lb weight loss in the past few months. normal colonoscopy in the past year per pt. no other cancer screening done OBJECTIVE: Last Vital Signs Temp Pulse Resp BP Pulse Ox 98.6 F 92 H 18 126/60 94 L 10/19/17 05:44 10/19/17 10:51 10/19/17 10:00 10/19/17 10:00 10/19/17 10:51 General NAD, bitemporal wasting, prominent cheekbones. prominent clavicles. CV S1 S2 RRR no murmur/rub/gallop Lungs CTA anteriorly Abdomen soft, diffuse tenderness. midline candice with good approximation of skin, no active leaking. normoactive BS ASSESSMENT AND PLAN: 67 yo M with PMHx for former heavy smoker, COPD, appendectomy, recurrent SBO, comes with high grade SBO 1, Acute high grade Small bowel obstruction- s/p exlap 10/15 with lysis of adhesions. NGT removed yesterday. tolerating liquids. will slowly advance as tolerated. cepacol lozenges. will d/c IVF once tolerating liquids. monitor for BM. surgery on board. 2. Malnutrition- evident by body habitus and weight loss. nutritional eval. give ensures. magic cup. encouraged to f/u with PMD for routine cancer screening. no hx of malignancy in the family 3. COPD- no signs of acute exacerbation. cont inhalers 4. Former heavy smoker 5. DVT pppx- hep sq
--- NOTE | 2017-10-19 14:36 | PN ---
Physical Exam: SUBJECTIVE: Patient seen and examined. NGT was removed yesterday with pt started on clears. Tolerated clear diet. Has been passing flatus. Yet to move BM in am. Was nauseous and spitting. Pt was yet to ambulate in the am. OBJECTIVE: Vital Signs Period Temp Pulse Resp BP Sys/Monsalve Pulse Ox Last 24 Hr 97.6 F-98.6 F 57-92 18-20 123-130/60-71 94-98 Vital Signs Temp 98.1 F 10/19/17 14:41 Pulse 66 10/19/17 14:41 Resp 18 10/19/17 14:41 BP 125/77 10/19/17 14:41 Pulse Ox 94 L 10/19/17 10:51 Intake & Output 10/18/17 10/19/17 10/19/17 23:59 11:59 23:59 Intake Total 1590 325 Output Total 710 400 Balance 880 -75 Weight 46.72 kg Intake: IV 1000 D5-Lr - 1,000 ml @ 100 1000 mls/hr IV ASDIR [facility] Rx#: [id number] IVPB 150 Oral 440 325 Output: Gastric Drainage 10 Urine 700 Void 700 Emesis 400 Other: Voiding Method Urinal Urinal Urinal Bowel Movement No Weight Measurement Method Built in Bedscale Intake & Output 10/16/17 10/17/17 10/18/17 10/19/17 23:59 23:59 23:59 23:59 Intake Total 2450 1200 1590 325 Output Total 1000 480 710 400 Balance 1450 720 880 -75 Weight 45.501 kg 46.72 kg GENERAL: Cachectic. The patient is awake, alert, and fully oriented, in no acute distress. NC-2L sating at 98% on RA-96% HEAD: Bitemporal wasting EYES:sunken. ENT: NC in place LUNGS: Breath sounds equal, clear to auscultation bilaterally HEART: Regular rate and rhythm, S1, S2 without murmur ABDOMEN: Midline surgical candice in place. Minimal guarding. firm mild tenderness, normoactive bowel sounds EXTREMITIES: 2+ pulses, warm, well-perfused, no edema. NEUROLOGICAL: AAOx3, normal speech. Moves all limbs. Laboratory Results - last 24 hr 10/19/17 10/19/17 07:00 07:00 WBC 7.2 RBC 4.14 Hgb 11.3 L Hct 34.9 L MCV 84.2 MCH 27.2 MCHC 32.3 RDW 15.9 Plt Count 210 MPV 9.5 Absolute Neuts (auto) 4.2 Neutrophils % 58.5 Lymphocytes % 28.1 D Monocytes % 9.3 Eosinophils % 3.6 Basophils % 0.5 Nucleated RBC % 0 Platelet Estimate Adequate Platelet Comment No clumping noted Sodium 139 Potassium 4.3 Chloride 103 Carbon Dioxide 27 Anion Gap 9 BUN 4 L D Creatinine 0.7 Creat Clearance w eGFR > 60 Random Glucose 85 Calcium 8.2 L Phosphorus 3.2 D Magnesium 1.9 Total Bilirubin 0.2 D AST 17 ALT 17 D Alkaline Phosphatase 42 L Total Protein 5.7 L Albumin 2.4 L Active Medications Generic Name Dose Route Start Last Admin Trade Name Freq PRN Reason Stop Dose Admin Acetaminophen 325 mg 10/19/17 10:02 10/19/17 10:15 Tylenol - PO 10/22/17 10:01 325 mg Q4H PRN Administration PAIN Heparin Sodium (Porcine) 5,000 unit 10/15/17 22:00 10/19/17 10:16 Heparin - SQ 5,000 unit BID EMILY Administration Dextrose/Lactated Ringer's 1,000 mls @ 100 mls/hr 10/15/17 20:42 10/18/17 15: 23 D5-Lr - IV 100 mls/hr ASDIR EMILY Administration Ondansetron HCl 4 mg 10/17/17 20:24 10/17/17 20:33 Zofran Injection IVPUSH 4 mg Q6H PRN Administration NAUSEA Oxycodone HCl 5 mg 10/19/17 10:02 10/19/17 10:15 Roxicodone - PO 5 mg Q4H PRN Administration PAIN- Fluticasone/Salmeterol 1 puff 10/15/17 22:00 10/19/17 10:16 Advair 100mcg/50mcg - IH Not Given BID [facility] Current Medications Acetaminophen (Tylenol -) 325 mg PO Q4H PRN PRN Reason: PAIN Stop: 10/22/17 10:01 Last Admin: 10/19/17 10:15 Dose: 325 mg Heparin Sodium (Porcine) (Heparin -) 5,000 unit SQ BID EMILY Last Admin: 10/19/17 10:16 Dose: 5,000 unit Ondansetron HCl (Zofran Injection) 4 mg IVPUSH Q6H PRN PRN Reason: NAUSEA Last Admin: 10/17/17 20:33 Dose: 4 mg Oxycodone HCl (Roxicodone -) 5 mg PO Q4H PRN PRN Reason: PAIN- Last Admin: 10/19/17 10:15 Dose: 5 mg Phenol/Menthol (Chloraseptic -) 1 spray MM Q6HPO PRN PRN Reason: SORE THROAT Fluticasone/Salmeterol (Advair 100mcg/50mcg -) 1 puff IH BID EMILY Last Admin: 10/19/17 10:16 Dose: Not Given Imaging: CT abdomen on 10/13: High grade SBO, likely complete, with transition point identified in the midline lower abdomen just upstream from enteroenteric anastomotic sutures and ventral to the common iliac arteries. mildly enlarged prostate gland AXR 10/14: Partial obstruction AXR 10/15: Worsening obstruction ASSESSMENT/PLAN: 67 yo M with PMHx of previous exlap with recurrent SBO, asthma, Hep C, admitted to med-surg for SBO. Recurrent SBO - s/p adhesiolysis (10/15/17) - percocet for pain control - and zofran for n/v - IVF D5/LR@100/hr dcd - Monitor Is and Os - Chloraseptic- for sorethroat post surgery - Pt started on clears yesterday - Surgery consult- Dr Raphael roy recs- diet was advanced to soft, per nurse, pt tolerated soft diet and moved bowel with pain controlled on PO - Physical therapy - Pre and post- Pt said he has used home oxygen in the past but does not have oxygen at home now Cachexia - Significant weight loss in 8 months - FHx of cancer - Pt has not had much of an appetite - Magic cup -[place] ensure - Dietary consult - Asthma - Cont. advair and combivent Hep C - Previously treated in remission FEN - Stop D5LR 100ml/hr - Cont. to monitor lytes - soft diet Prophylaxis - DVT: heparin Dispo - Cont. to monitor on med-surg - For likely dc over the weekend Visit type - Emergency Visit Emergency Visit: Yes ED Registration Date: 10/13/17 Care time: The patient presented to the Emergency Department on the above date and was hospitalized for further evaluation of their emergent condition. - New Patient This patient is new to me today: No - Critical Care Critical Care patient: No - Discharge Referral Referred to [facility] Med P.C.: No
[2017-10-19] MEDS ORDERED: PHENOL 177 ML SPRAY BOTTLE MM PRN (15:00)
[2017-10-20] MEDS ORDERED: PT OWN MED DRAWER 7, Y5N ONE (09:24)
--- NOTE | 2017-10-20 09:38 | PN ---
Progress Note (short form) - Note Progress Note: pain controlled with pain medication. had one "average" sized BM yesterday. tolerating diet. denies CP, SOB, fever, chills, N/V/C/D Current Medications Generic Name Dose Route Start Last Admin Trade Name Westleyq PRN Reason Stop Dose Admin Acetaminophen 325 mg 10/19/17 10:02 10/19/17 19:50 Tylenol - PO 10/22/17 10:01 325 mg Q4H PRN Administration PAIN Heparin Sodium (Porcine) 5,000 unit 10/15/17 22:00 10/19/17 22:35 Heparin - SQ 5,000 unit BID EMILY Administration Ondansetron HCl 4 mg 10/17/17 20:24 10/17/17 20:33 Zofran Injection IVPUSH 4 mg Q6H PRN Administration NAUSEA Oxycodone HCl 5 mg 10/19/17 10:02 10/19/17 19:51 Roxicodone - PO 5 mg Q4H PRN Administration PAIN- Phenol/Menthol 1 spray 10/19/17 15:00 Chloraseptic - MM Q6HPO PRN SORE THROAT Fluticasone/Salmeterol 1 puff 10/15/17 22:00 10/19/17 21:40 Advair 100mcg/50mcg - IH Not Given BID EMILY Last Vital Signs Temp Pulse Resp BP Pulse Ox 98.4 F 59 L 20 131/74 94 L 10/20/17 06:00 10/20/17 06:00 10/19/17 22:54 10/20/17 06:00 10/19/17 21:00 General NAD, CV S1 S2 RRR no murmur/rub/gallop Lungs CTA anteriorly Abdomen soft, diffuse tenderness. midline candice with good approximation of skin, no active leaking. normoactive BS ASSESSMENT AND PLAN: 67 yo M with PMHx for former heavy smoker, COPD, appendectomy, recurrent SBO, comes with high grade SBO 1, Acute high grade Small bowel obstruction- s/p exlap 10/15 with lysis of adhesions. tolerating soft diet. will advance. +BM. will speak with surgery for further recommendations. possible d/c in the next 24H. Surgery on board. 2. Malnutrition- evident by body habitus and weight loss. nutritional eval. give ensures. magic cup. encouraged to f/u with PMD for routine cancer screening. no hx of malignancy in the family 3. COPD- no signs of acute exacerbation. cont inhalers 4. Former heavy smoker 5. DVT pppx- hep sq 6. anticipate d/c in the next 24H. Visit type - Emergency Visit Emergency Visit: Yes ED Registration Date: 10/13/17 Care time: The patient presented to the Emergency Department on the above date and was hospitalized for further evaluation of their emergent condition. - New Patient This patient is new to me today: No - Critical Care Critical Care patient: No - Discharge Referral Referred to [facility] Med P.C.: No
[2017-10-20] MEDS: FLUTICASONE/SALMETEROL 100 MCG/50 MCG DISKUS IH SCH ×2 (09:51→21:42)
[2017-10-20] MEDS: HEPARIN NA (PORCINE) 5,000 UNITS/ML 1ML VIAL SQ SCH ×2 (09:51→21:43)
[2017-10-20] MEDS: oxyCODONE HCL 5 MG TABLET PO PRN ×3 (11:52→23:14)
--- NOTE | 2017-10-20 12:54 | PN ---
Progress Note, Physician - Current Medication List Current Medications: Active Medications Acetaminophen (Tylenol -) 325 mg PO Q4H PRN PRN Reason: PAIN Stop: 10/22/17 10:01 Last Admin: 10/19/17 19:50 Dose: 325 mg Heparin Sodium (Porcine) (Heparin -) 5,000 unit SQ BID EMILY Last Admin: 10/20/17 09:51 Dose: 5,000 unit Ondansetron HCl (Zofran Injection) 4 mg IVPUSH Q6H PRN PRN Reason: NAUSEA Last Admin: 10/17/17 20:33 Dose: 4 mg Oxycodone HCl (Roxicodone -) 5 mg PO Q4H PRN PRN Reason: PAIN- Last Admin: 10/20/17 11:52 Dose: 5 mg Phenol/Menthol (Chloraseptic -) 1 spray MM Q6HPO PRN PRN Reason: SORE THROAT Fluticasone/Salmeterol (Advair 100mcg/50mcg -) 1 puff IH BID [facility] Last Admin: 10/20/17 09:51 Dose: 1 inhaler - Objective Vital Signs: Vital Signs Temperature 98.4 F 10/20/17 06:00 Pulse Rate 59 L 10/20/17 06:00 Respiratory Rate 20 10/19/17 22:54 Blood Pressure 131/74 10/20/17 06:00 O2 Sat by Pulse Oximetry (%) 94 L 10/19/17 21:00 Labs: CBC, BMP 10/19/17 07:00 10/19/17 07:00 INR, PTT INR 1.22 (0.82-1.09) H 10/14/17 09:40 Problem List - Problems (1) Abdominal pain Code(s): R10.9 - UNSPECIFIED ABDOMINAL PAIN Qualifiers: Abdominal location: right lower quadrant Qualified Code(s): R10.31 - Right lower quadrant pain (2) Intestinal obstruction due to adhesions Code(s): K56.5 - INTESTINAL ADHESIONS WITH OBSTRUCTION (POSTIN * DO NOT USE * (3) Hepatitis C, chronic Code(s): B18.2 - CHRONIC VIRAL HEPATITIS C (4) Asthma Code(s): J45.909 - UNSPECIFIED ASTHMA, UNCOMPLICATED Qualifiers: Asthma severity: mild persistent Asthma complication type: uncomplicated Qualified Code(s): J45.30 - Mild persistent asthma, uncomplicated Assessment/Plan Surgery: Patient is out of bed, in chair. Wound is clean, no abdominal distention. having bowel movement. Will sign off . C
[2017-10-21 03:52] VITALS: BMI 16.1
[2017-10-21] MEDS: oxyCODONE HCL 5 MG TABLET PO PRN ×3 (04:03→12:56)
[2017-10-21] MEDS: ACETAMINOPHEN 325 MG TABLET (FP) PO PRN ×3 (04:04→12:56)
[2017-10-21] MEDS: FLUTICASONE/SALMETEROL 100 MCG/50 MCG DISKUS IH SCH (09:01)
[2017-10-21] MEDS: HEPARIN NA (PORCINE) 5,000 UNITS/ML 1ML VIAL SQ SCH (09:01)
--- NOTE | 2017-10-21 12:57 | DS ---
Physical Exam: SUBJECTIVE: Patient seen and examined at bedside. No complaint. One BM so far after surgery. Passing gas. Tolerating diet. No acute event overnight. OBJECTIVE: Vital Signs Period Temp Pulse Resp BP Sys/Monsalve Pulse Ox Last 24 Hr 97.7 F-98.6 F 71-98 18-18 113-139/63-96 96-100 PHYSICAL EXAM GENERAL: The patient is awake, alert, and fully oriented, in no acute distress. LUNGS: Breath sounds equal, clear to auscultation bilaterally, no wheezes, no crackles, no accessory muscle use. HEART: Regular rate and rhythm, S1, S2 without murmur, rub or gallop. ABDOMEN: diffusely LESS tender, mildly distended, hypoactive bowel sounds EXTREMITIES: 2+ pulses, warm, well-perfused, no edema. LABS HOSPITAL COURSE: Date of Admission:10/13/17 67 yo M with PMHx for former heavy smoker, COPD, appendectomy, recurrent SBO, comes with high grade SBO. He failed conservative medical management and underwent exlap on 10/15 with lysis of adhesions. He's been tolerating diet and had 1 bowel movement. Surgery has cleared for discharge and now he's ready to go home and follow up with Dr. Lim and PCP as outpatient. Hes instructed to work up for malignance in light of recent unintended weight loss and poor nutrition. Post-op and followup instruction is given in discharge packet Date of Discharge: 10/21/17 Minutes to complete discharge: 45 Discharge Summary Reason For Visit: INTESTINAL OBSTRUCTION Condition: Stable - Instructions Diet, Activity, Other Instructions: You were admitted to the hospital because you had small bowel obstruction. Abdominal surgery was done through exploratory laparotomy. It may take a few weeks or longer to heal from the surgery. This sheet gives instructions on how to care for yourself once youre home. Medicines: Take over the counter tynelol or ibuprofen. Do not wait until your pain becomes severe before taking the medicine. It may not work as well if you wait too long to take it between doses. Diet You may resume regular diet. Drink plenty of fluids. Try drinking ensures and eating ensure puddings. Activity Rest as often as needed. Ask your family and friends to help with chores and errands. Dont mow the lawn, vacuum, or do any strenuous activities for 4 to 6 weeks. Avoid lifting anything over 10 pounds for 4 to [address] until your healthcare provider says its OK. Walk as often as you feel able. Do the coughing and breathing exercises you were taught in the hospital. If you were given an incentive spirometer to help with breathing, use it as directed. This is important and will help prevent lung infections. Incision and drain care Keep your incision clean and dry. Its OK to wash the skin around your incision with mild soap and water. Dont sit in a bathtub, pool, or hot tub until your incision is closed and any drains are removed. When coughing or sneezing, hold a pillow firmly against your incision with both hands. This is called splinting. Doing this helps protect your incision and decreases belly discomfort. Avoid picking, scratching, or pulling at your incision. Dont use oils, or creams on your incision. Ask your healthcare provider before using lotions on your incision. Follow-up Follow up with your primary doctor and Dr. Lim the surgeon within a week ( contact information given in packet) Follow up with your primary care doctor this week. Discuss with them doing a cancer screening to further evaluate the cause of your weight loss. Also discuss with them about starting a medication to stimulate your appetite. When to call the healthcare provider Call your healthcare provider right away if you have any of the following: Fever of 100.4F (38C) or higher, or as advised by your healthcare provider Chest pain or trouble breathing Pain or tenderness in the leg Increased pain, redness, swelling, bleeding, or foul-smelling drainage at the incision site Incision separates or comes apart Problems with the drain if you have one Pain or hardness in your belly that gets worse or isnt relieved by pain medicine Nausea and vomiting that wont go away Diarrhea that lasts more than 3 days Constipation or inability to pass gas for more than 3 days Dark-colored or bloody urine Bright red or dark black stools Itchy, swollen skin; skin rash Referrals: Brandy Lubin [Primary Care Provider] - 2 Weeks Faiza Lim MD [Staff Physician] - 1 Week Disposition: HOME - Home Medications Comprehensive Discharge Medication List: Ambulatory Orders Ipratropium/Albuterol Sulfate [Combivent Respimat 20-100 Mcg] 4 gm IH BID Salmeterol/Fluticasone [Advair 100Mcg/50Mcg -] 1 inh PO BID 10/13/17 Acetaminophen [Tylenol .Regular Strength -] 325 mg PO Q4H PRN #0 tablet This patient is new to me today: No Emergency Visit: No Critical Care patient: No - Discharge Referral Referred to [facility] Med P.C.: No
--- NOTE | 2017-10-21 14:16 | PN ---
Teaching Attending Note Name of Resident: Dejon Calzada ATTENDING PHYSICIAN STATEMENT I saw and evaluated the patient. I reviewed the resident's note and discussed the case with the resident. I agree with the resident's findings and plan as documented. SUBJECTIVE:tolerating regular diet. pain controlled with medications. denies CP , SOB, fever, chills, N/V/C/D. last BM was 2 days ago OBJECTIVE: Last Vital Signs Temp Pulse Resp BP Pulse Ox 97.9 F 98 H 18 120/96 96 10/21/17 10:00 10/21/17 10:00 10/21/17 10:10/21/17 10:10/21/17 09:00 General NAD, CV S1 S2 RRR no murmur/rub/gallop Lungs CTA anteriorly Abdomen soft, diffuse tenderness. midline candice with good approximation of skin, no active leaking. normoactive BS ASSESSMENT AND PLAN: 67 yo M with PMHx for former heavy smoker, COPD, appendectomy, recurrent SBO, comes with high grade SBO 1, Acute high grade Small bowel obstruction- s/p exlap 10/15 with lysis of adhesions. tolerating diet. will give percocet for pain for 3 days. educated on risks for opiate abuse. take stool softeners to continue regular BM. can f/u with surgery as outpatient for staple removal 2. Malnutrition- evident by body habitus and weight loss. encouraged to finish for ensures and compact. should see PMD for cancer screening. can talk with PMD about appetitie stimulant. 3. COPD- no signs of acute exacerbation. cont inhalers 4. Former heavy smoker 5. DVT pppx- hep sq 6. d/c home 7. spoke with daughter present at bedside. all questions answered. verbalized understanding Istop Reference #: [id number]
[2017-10-21 14:41] VITALS: BP 114/81; PULSE 88; TEMP 98.2
== END 2017-10-21 15:01 | disposition home or self-care (01) | DRG 335 ==
LOC: JER 02:57 → JERBED 07:44 → J6S 09:20
PROVIDERS: ADMIT Hospitalist; ATTEND Internal Medicine
PROC: 0D9670Z Drainage of Stomach with Drainage Device, Via Natural or Artificial Opening (ICD-10-PCS; 2017-10-13)
PROC: 0WJP0ZZ Inspection of Gastrointestinal Tract, Open Approach (ICD-10-PCS; 2017-10-15)
PROC: 0DN80ZZ Release Small Intestine, Open Approach (ICD-10-PCS; principal; 2017-10-15 14:00)
DX: K56.50 Intestinal adhesions [bands], unspecified as to partial versus complete obstruction (principal); E43 Unspecified severe protein-calorie malnutrition; Z68.1 Body mass index [BMI] 19.9 or less, adult; R64 Cachexia; J44.9 Chronic obstructive pulmonary disease, unspecified; B18.2 Chronic viral hepatitis C; Z87.891 Personal history of nicotine dependence; R10.31 Right lower quadrant pain; J45.30 Mild persistent asthma, uncomplicated
CPT/HCPCS: 36415; 71045-TC-FY; 74019-TC-FY; 74176-TC; 80048; 80053; 83605; 83735; 84100; 85025; 85027; 85610; 85730; 86850; 86900; 86901; 93005; 93010; 94010; 94640; 94760; 94761; 97116-GP; 97161-GP; 99283-25; J0131; J1644; J7030; J7620

== ENCOUNTER 2019-06-14 18:20 | Inpatient (IN) | payer MEDICARE, OTHER ==
--- NOTE | 2019-06-14 18:57 | PDOC ---
History of Present Illness - General Chief Complaint: Pain Stated Complaint: ABD PAIN Time Seen by Provider: 06/14/19 18:50 History Source: Patient Exam Limitations: No Limitations - History of Present Illness Initial Comments: 06/14/19 18:57 PCP: Dr. Zohaib Barrera HPI: 68 yo M PMH COPD, s/p appendectomy, hepatitis C, recurrent SBO (s/p NHI 03/24), presenting with lower abdominal pain for 2 days. Patient reports 2 days of poor PO, nausea and vomiting with any attempted PO. Vomiting is green in color. Pain is located in the lower abdomen and he reports that it feels the same as his pain with prior SOBs, abdominal fullness and diffuse pain. Denies fevers / chills, chest pain, SOB, cough, diarrhea, recent illness. No blood in his emesis. All: NKDA Meds: Per chart PMH: As above PSH: Per chart Past History - Travel Traveled outside of the country in the last 30 days: No Close contact w/someone who was outside of country & ill: No - Past Medical History Allergies/Adverse Reactions: Allergies Allergy/AdvReac Type Severity Reaction Status Date / Time No Known Allergies Allergy Verified 06/14/19 18:39 Home Medications: Ambulatory Orders Ipratropium/Albuterol Sulfate [Combivent Respimat 20-100 Mcg] 4 gm IH BID Fluticasone/Salmeterol [Advair 250-50 Diskus] 1 each IH BID 06/15/19 Gabapentin [Neurontin] 300 mg PO HS 06/15/19 Megestrol Acetate Oral Susp [Megace Liquid -] 400 mg PO BID 06/15/19 Oxycodone HCl 10 mg PO BID PRN 06/15/19 Tizanidine HCl 2 mg PO BID PRN 06/15/19 traZODone HCL [Trazodone HCl] 50 mg PO HS PRN 06/15/19 Asthma: Yes COPD: Yes GI Disorders: Yes (SBO) Liver Disease: Yes (HEPATITIS C) - Surgical History Abdominal Surgery: Yes (EXP.LAP FOR SBO; RESECTION) Appendectomy: Yes - Immunization History Immunization Up to Date: Yes - Psycho Social/Smoking Cessation Hx Smoking Status: Yes Smoking History: Former smoker Have you smoked in the past 12 months: No Number of Cigarettes Smoked Daily: 5 If you are a former smoker, when did you quit?: 1.5yrs ago 'Breaking Loose' booklet given: 11/02/16 Hx Alcohol Use: No Drug/Substance Use Hx: No Substance Use Type: None Hx Substance Use Treatment: No Review of Systems - Review of Systems Able to Perform ROS?: Yes Is the patient limited Belarusian proficient: Yes Constitutional: No: Chills, Diaphoresis, Fever HEENTM: No: Nose Congestion, Throat Pain Respiratory: No: Cough, Shortness of Breath, Wheezing, Productive cough Cardiac (ROS): No: Chest Pain, Irregular Heart Rate, Palpitations, Syncope, Chest Tightness ABD/GI: Yes: See HPI, Nausea, Poor Fluid Intake, Vomiting. No: Blood Streaked Bowels, Constipated, Diarrhea, Poor Appetite, Rectal Bleeding : No: Burning, Dysuria, Frequency Musculoskeletal: No: Muscle Pain, Muscle Weakness Integumentary: No: Change in Color, Pruritus, Rash Neurological: No: Headache, Numbness, Tingling, Weakness Psychiatric: No: Stressors, Change in Appetite Endocrine: No: Increased Thirst, Increased Urine Hematologic/Lymphatic: No: Anemia, Blood Clots, Easy Bleeding All Other Systems: Reviewed and Negative *Physical Exam - Physical Exam 06/14/19 20:49 Vitals reviewed, Febrile to 100.0 orally, VSS GEN: Cachexia, elderly, actively vomiting, NAD, comfortable. AAOx3. HEENT: NCAT, EOMI, PERRL. Sclera anicteric, non-injected. No facial asymmetry. Moist mucous membranes. Normal voice. Trachea midline. CV: RRR, S1/S2, no murmurs / rubs / gallops appreciated. LUNG: CTAB, normal work of breathing. No wheezes, rales, rhonchi. No cough. Speaking full sentences. GI: Soft, +tender lower abdomen, no masses appreciated, +guarding, non- distended +BS, no rebound. Neg CVAT b/l. EXTREMITIES: 2+ distal pulses. No LE edema. No obvious deformities of all extremities. SKIN: Warm, dry, no rashes appreciated, non-jaundiced. PSYCH: Normal mood and affect. Cooperative and appropriate. NEURO: CN grossly intact. Moving all extremities well. Normal strength and sensation grossly. ED Treatment Course - LABORATORY CBC & Chemistry Diagram: 06/15/19 10:38 06/15/19 10:38 Medical Decision Making - Medical Decision Making 06/14/19 19:14 68 yo M PMH COPD, s/p appendectomy, hepatitis C, 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 History notable for multiple prior SBOs, N/V for 2 days, abdominal pain c/w prior SBO. Exam notable for fever , dark green emesis, otherwise stable vitals. DDX: SBO, gastritis, hepatitis. - CBC, CMP, T&S, Coags, Lipase - Plan for CTAP with IV contrast pending creatinine - Morphine - Zosyn - Zofran - Tylenol - 1L IVF - UA, UCx 06/14/19 21:52 - Banana bag running - Leukocytosis to 11.8 - Coags INR 1.17 - Chemistry pending, Lipase pending - CTAP pending creatinine 06/14/19 23:37 - CMP unremarkable, Cr 1.1, Lipase wnl - CT pending read 06/14/19 23:[address] Stauffer Dispo: pending CT read Discharge - Discharge Information Problems reviewed: Yes Clinical Impression/Diagnosis: SBO (small bowel obstruction) Condition: Guarded - Admission Yes - Follow up/Referral - Patient Discharge Instructions - Post Discharge Activity
[2019-06-14] MEDS ORDERED: ACETAMINOPHEN 1000 MG/100 ML VIAL (NON FORMULARY) IVPB ONE (19:06)
[2019-06-14] MEDS ORDERED: SODIUM CHLORIDE 0.9% 500 ML INFUS.BAG IV ONE (19:06)
[2019-06-14] MEDS ORDERED: morphine CARPU-JECT 2 MG/1 ML DISP.SYRIN IVPUSH ONE (19:06)
[2019-06-14] MEDS ORDERED: ONDANSETRON 4 MG/2 ML VIAL IVPUSH ONE (19:07)
[2019-06-14] MEDS ORDERED: ACETAMINOPHEN INJECTION 100 ML IVPB ONE (19:59)
[2019-06-14] MEDS ORDERED: PIPERACILLIN/TAZOB 3.375 GM 3.375 GM in DEXTROSE 5%-WATER - 50 ML IVPB ONE (20:23)
[2019-06-14] MEDS ORDERED: FOLIC ACID INJECTION - 1 MG, THIAMINE HCL 100 MG, MULTIVIT INJECTION ADULT 10 ML in SOD... IVPB ONE (20:31)
[2019-06-14] MEDS ORDERED: ONDANSETRON 4 MG/2 ML VIAL ONE (21:07)
[2019-06-14 21:09] LABS: VENOUS PC02 32.2 mmHg (38-52); VENOUS PH 7.51 (7.31-7.41); VENOUS PO2 69.4 mmHg (28-48)
[2019-06-14] MEDS ORDERED: TETRACAINE/BENZOCAINE/BUTAMBEN 20 GM SPR TP ONE (21:17)
[2019-06-14] MEDS ORDERED: PIPERACILLIN/TAZOB 3.375 GM 3.375 GM/50 ML BAG IVPB ONE (21:27)
[2019-06-14] MEDS ORDERED: MORPHINE SULFATE 2 MG/ML VIAL ONE (21:27)
[2019-06-14 21:28] LABS: BASO % 0.3 % (0-2.0); EOS % 0.1 % (0-4.5); HEMATOCRIT 43.5 % (35.4-49); HEMOGLOBIN 14.3 GM/dL (11.7-16.9); LYMPH % 9.5 % (8-40); MCH 27.4 pg (25.7-33.7); MCHC 32.9 g/dl (32.0-35.9); MEAN CELL VOLUME 83.2 fl (80-96); MEAN PLT VOLUME 8.6 fl (7.5-11.1); MONO % 6.2 % (3.8-10.2); NEUT % 83.9 % (42.8-82.8); PLATELET COUNT 299 K/MM3 (134-434); RBC 5.23 M/mm3 (4.00-5.60); RDW 15.6 % (11.9-15.9); WHITE BLOOD COUNT 11.8 K/mm3 (4.0-10.0)
--- NOTE | 2019-06-14 21:35 | PDOC ---
Attending Attestation - Resident Resident Name: Trenton Virgen - ED Attending Attestation I have performed the following: I have examined & evaluated the patient, The case was reviewed & discussed with the resident, I agree w/resident's findings & plan - HPI HPI: 06/14/19 21:30 Pt comes with abdominal pain. He ate thai food yesterday; no nausea and no vomiting He has a hx of SBO and is worried that it may be SBO. Pt had a CT chest yesterday that was done here and was normal; upper abdomen cuts were normal. No flank pain at this time. Pt has no fever and no chills. He has normal heart and lungs. Pt has no other complaints at this time. States that he is thin because he has a poor appetite. - Physicial Exam PE: 06/14/19 21:33 Agree with resident exam - Medical Decision Making 06/14/19 21:34 Pt has a temp of 100F Pt has labs pending CT abd pelvis with IV contrast will be ordered when BUN/Cr are back 06/14/19 21:48 Pt has elevated WBC with left shift 06/14/19 22:54 CHem is normal 06/14/19 23:[address] scan 06/15/19 03:16 Patient Name: ELTON PATEL THIS IS A PRELIMINARY REPORT FROM IMAGING NURSE CASE MANAGER DATE OF SERVICE: 2019-06-15 01:11:54 IMAGES: [id number] EXAM: CT ABDOMEN AND PELVIS with contrast HISTORY: Small bowel obstruction COMPARISON: None. FINDINGS: Moderate to severe emphysema is noted. The visualized cardiac chambers are normal size and configuration. Normal liver, gallbladder, pancreas, spleen, adrenal glands and kidneys. The stomach is distended and there is a small bowel obstruction with small bowel dilated up to 4.1 cm. Transition point is visualized in the mid lower abdomen on axial image 72 and coronal image 35. May be secondary to an adhesion. Please note that this is not adjacent to the right lower quadrant anastomosis. No abscess or free air. No colonic inflammation.. There is no aortic aneurysm. There is no significant retroperitoneal lymphadenopathy. There is no evidence of appendicitis. The urinary bladder and prostate gland are normal. No pelvic free fluid is identified. There is no significant pelvic lymphadenopathy. IMPRESSION: Small bowel obstruction with mid lower abdominal transition point, possibly due to adhesions, without abscess or free air. Emphysema. 06/15/19 19:42 Admitted for SBO; surgery consult will be placed and pt admitted to the hospitalist
[2019-06-14 21:41] LABS: INR 1.17 (0.83-1.09); PROTHROMBIN TIME (PATIENT) 13.8 SEC (9.7-13.0)
[2019-06-14 22:43] LABS: BILIRUBIN,TOTAL 0.9 mg/dL (0.2-1); BLOOD UREA NITROGEN 25.4 mg/dL (7-18); CALCIUM 10.1 mg/dL (8.5-10.1); CREATININE 1.1 mg/dL (0.55-1.3); POTASSIUM 4.6 mmol/L (3.5-5.1); TOT PROT 8.3 g/dl (6.4-8.2)
--- NOTE | 2019-06-14 23:54 | PDOC ---
*Physical Exam - Vital Signs Last Vital Signs Temp Pulse Resp BP Pulse Ox 100 F H 92 H 18 115/86 100 06/14/19 18:47 06/14/19 18:47 06/14/19 18:47 06/14/19 18:47 06/14/19 18:47 ED Treatment Course - LABORATORY CBC & Chemistry Diagram: 06/14/19 20:30 06/14/19 20:30 - ADDITIONAL ORDERS Additional order review: Laboratory Results 06/14/19 06/14/19 06/14/19 21:00 20:30 20:30 PT with INR 13.80 H INR 1.17 H PTT (Actin FS) 28.0 VBG pH 7.51 H POC VBG pCO2 32.2 L POC VBG pO2 69.4 H VBG HCO3 25.5 VBG O2 Sat (Pan) 94.8 H VBG Base Excess 3.4 H Sodium Potassium Chloride Carbon Dioxide Anion Gap BUN Creatinine Est GFR (CKD-EPI)AfAm Est GFR (CKD-EPI)NonAf Random Glucose Calcium Total Bilirubin AST ALT Alkaline Phosphatase Total Protein Albumin Lipase Cancelled 06/14/19 20:30 PT with INR INR PTT (Actin FS) VBG pH POC VBG pCO2 POC VBG pO2 VBG HCO3 VBG O2 Sat (Pan) VBG Base Excess Sodium 136 Potassium 4.6 Chloride 100 Carbon Dioxide 23 Anion Gap 14 BUN 25.4 H Creatinine 1.1 Est GFR (CKD-EPI)AfAm 78.41 Est GFR (CKD-EPI)NonAf 67.66 Random Glucose 108 H Calcium 10.1 Total Bilirubin 0.9 AST 13 L ALT 13 Alkaline Phosphatase 56 Total Protein 8.3 H Albumin 4.0 Lipase 41 L 06/14/19 20:30 RBC 5.23 MCV 83.2 MCHC 32.9 RDW 15.6 MPV 8.6 Neutrophils % 83.9 H D Lymphocytes % 9.5 D Monocytes % 6.2 Eosinophils % 0.1 D Basophils % 0.3 - Medications Given in the ED: ED Medications Discontinued Medications Generic Name Dose Route Start Last Admin Trade Name Freq PRN Reason Stop Dose Admin Acetaminophen 1,000 mg 06/14/19 19:06 06/14/19 19:54 Ofirmev Injection - IVPB 06/14/19 19:07 1,000 mg ONCE ONE Administration Benzocaine/Butamben/Tetracaine HCl 1 spray 06/14/19 21:17 06/14/19 21:23 Cetacaine [place] - TP 06/14/19 21:18 Not Given ONCE ONE Piperacillin Sod/Tazobactam 50 mls @ 100 mls/hr 06/14/19 20:23 06/14/19 21:35 Sod 3.375 gm/ Dextrose IVPB 06/14/19 20:52 100 mls/hr ONCE ONE Administration Protocol Morphine Sulfate 2 mg 06/14/19 19:06 06/14/19 21:25 Morphine Injection - IVPUSH 06/14/19 19:07 2 mg ONCE ONE Administration Ondansetron HCl 4 mg 06/14/19 19:07 06/14/19 19:54 Zofran Injection IVPUSH 06/14/19 19:08 4 mg NOW ONE Administration Sodium Chloride 1,000 ml 06/14/19 19:06 06/14/19 19:55 Normal Saline - IV 06/14/19 19:07 1,000 ml ONCE ONE Administration Medical Decision Making - Medical Decision Making 06/14/19 23:54 Signed out from day team WBC [address] - SBO and emphysema --- 68 yo M PMH COPD, s/p appendectomy, hepatitis C, 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 History notable for multiple prior SBOs, N/V for 2 days, abdominal pain c/w prior SBO. Exam notable for fever , dark green emesis, otherwise stable vitals. Has SBO on CT. No evidence of pancreatitis vs hepatitis Given zofran, 1L NS, zosyn, 4 morphine. Pt did not tolerate NG tube Admitted m/s hospitalist for SBO Discharge - Discharge Information Problems reviewed: Yes Clinical Impression/Diagnosis: SBO (small bowel obstruction) Condition: Guarded - Follow up/Referral Referrals: Zohaib Barrera MD [Primary Care Provider] - - Patient Discharge Instructions - Post Discharge Activity
[2019-06-15] MEDS ORDERED: morphine CARPU-JECT 4 MG/1 ML DISP.SYRIN IVPUSH ONE (02:00)
[2019-06-15] MEDS ORDERED: MORPHINE SULFATE 2 MG/ML VIAL ONE ×4 (02:01→12:22)
[2019-06-15] MEDS ORDERED: morphine CARPU-JECT 2 MG/1 ML DISP.SYRIN IVPUSH ONE (04:01)
--- NOTE | 2019-06-15 05:12 | PN ---
Teaching Attending Note Name of Resident: Ajit Fernando ATTENDING PHYSICIAN STATEMENT I saw and evaluated the patient. I reviewed the resident's note and discussed the case with the resident. I agree with the resident's findings and plan as documented. SUBJECTIVE: 68 yo man w/ COPD, s/p appendectomy, hepatitis C, recurrent SBO (s/p NHI ), presenting with lower abdominal pain for 2 days. Patient reports 2 days of poor PO, nausea and vomiting with any attempted PO. Last BM was on 06/13/2019. Patient denies passing gas. OBJECTIVE: Last Vital Signs Temp Pulse Resp BP Pulse Ox 97.6 F 89 20 144/98 96 06/15/19 04:09 06/15/19 04:09 06/15/19 04:09 06/15/19 04:09 06/15/19 04:09 GENERAL: Well developed, well nourished. Awake and alert. No acute distress. HEENT: Normocephalic, atraumatic. PERRLA, EOMI. No conjunctival pallor. Sclera are non- icteric. Moist mucous membranes. NECK: Supple. Full ROM. No JVD. Carotid pulses 2+ and symmetric, without bruits. No thyromegaly. No lymphadenopathy. CARDIOVASCULAR: Regular rate and rhythm. No murmurs, rubs, or gallops. Distal pulses are 2+ and symmetric. PULMONARY: No evidence of respiratory distress. Lungs clear to auscultation bilaterally. No wheezing, rales or rhonchi. ABDOMINAL: Hard, tender, absent bowel sounds, Guarding MUSCULOSKELETAL Normal range of motion at all joints. No bony deformities or tenderness. No CVA tenderness. EXTREMITIES: No cyanosis. No clubbing. No edema. No calf tenderness. SKIN: Warm and dry. Normal capillary refill. No rashes. No jaundice. PSYCHIATRIC: Cooperative. Good eye contact. Appropriate mood and affect. Abnormal Lab Results 06/14/19 06/14/19 06/14/19 20:30 20:30 20:30 WBC 11.8 H Absolute Neuts (auto) 9.9 H Neutrophils % 83.9 H D PT with INR 13.80 H INR 1.17 H VBG pH POC VBG pCO2 POC VBG pO2 VBG O2 Sat (Pan) VBG Base Excess BUN 25.4 H Random Glucose 108 H AST 13 L Total Protein 8.3 H Lipase 41 L 06/14/19 21:00 WBC Absolute Neuts (auto) Neutrophils % PT with INR INR VBG pH 7.51 H POC VBG pCO2 32.2 L POC VBG pO2 69.4 H VBG O2 Sat (Pan) 94.8 H VBG Base Excess 3.4 H BUN Random Glucose AST Total Protein Lipase Imaging studies reviewed EXAM: CT ABDOMEN AND PELVIS with contrast HISTORY: Small bowel obstruction COMPARISON: None. FINDINGS: Moderate to severe emphysema is noted. The visualized cardiac chambers are normal size and configuration. Normal liver, gallbladder, pancreas, spleen, adrenal glands and kidneys. The stomach is distended and there is a small bowel obstruction with small bowel dilated up to 4.1 cm. Transition point is visualized in the mid lower abdomen on axial image 72 and coronal image 35. May be secondary to an adhesion. Please note that this is not adjacent to the right lower quadrant anastomosis. No abscess or free air. No colonic inflammation.. There is no aortic aneurysm. There is no significant retroperitoneal lymphadenopathy. There is no evidence of appendicitis. The urinary bladder and prostate gland are normal. No pelvic free fluid is identified. There is no significant pelvic lymphadenopathy. IMPRESSION: Small bowel obstruction with mid lower abdominal transition point, possibly due to adhesions, without abscess or free air. Emphysema. ASSESSMENT AND PLAN: 68-year-old male with SBO with mid lower abdominal transition point, possibly due to adhesions without abscess or free air, leukocytosis. Admit to [facility] N.p.o. Stat Surgery consult Send lactate IV fluid hydration PT/PTT, type and screen NG tube and intermittent suction IV morphine for pain control Zofran IV as needed if nausea or vomiting SCDs for DVT prophylaxis bilaterally
[2019-06-15] MEDS ORDERED: ONDANSETRON 4 MG/2 ML VIAL IVPUSH PRN (06:12)
[2019-06-15] MEDS ORDERED: SODIUM CHLORIDE 1,000 ML IV SCH (07:00)
--- NOTE | 2019-06-15 07:24 | HP ---
CHIEF COMPLAINT: Abdominal Pain PCP: Dr. Bruce Penny HISTORY OF PRESENT ILLNESS: Pt. is a 68 y.o. M w/ PMHx. of COPD (not on home O2) , Hep (untreated), multiple SBOs(s/p Ex-Lap for NHI in 2013 and 2017) presents for abdominal pain for 2 days. Pt. states that is is intermittent and that the lower abdominal pain was consistent with the abdominal pain he has had in the past. Pt. endorses associated bilious nausea and vomiting with streaks of blood. Pt. states his last BM was on Sunday morning but that it was a very small amount. Pt. endorses chronic dyspnea on exertion and states he can only walk 20 ft. before feeling short of breath. Pt. is asking about receiving oxygen. Pt. endorse chronic back pain for which he takes oxycodone. He last took Oxycodone on Sunday morning which did not help his abdominal pain. Pt. denies ever having EGD. Pt. endorses lightheadedness and dizziness. Pt. denies any fevers, chest pain, worsening shortness of breath, numbness/tingling in extremities of headache. 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 was exposed to toxic metals, Pt. states he does not know. Allergies No Known Allergies Allergy (Verified 06/14/19 18:39) HOME MEDICATIONS: Home Medications Medication Instructions Recorded Ipratropium/Albuterol Sulfate 4 gm IH BID 10/13/17 [Combivent Respimat 20-100 Mcg] Salmeterol/Fluticasone [Advair 1 inh PO BID 10/13/17 100Mcg/50Mcg -] Acetaminophen [Tylenol .Regular 325 mg PO Q4H PRN #0 tablet 10/21/17 Strength -] Docusate Sodium [Colace -] 300 mg PO HS #90 capsule 10/21/17 Oxycodone HCl/Acetaminophen 1 tab PO Q6H PRN #12 tablet MDD 20 10/21/17 [Percocet 5-325 mg Tablet] REVIEW OF SYSTEMS As above PHYSICAL EXAMINATION Vital Signs - 24 hr 06/14/19 06/14/19 06/15/19 18:47 22:40 04:09 Temperature 100 F H 98.9 F 97.6 F Pulse Rate 92 H Pulse Rate [ 90 89 Left Radial] Respiratory 18 16 20 Rate Blood Pressure 115/86 Blood Pressure 120/84 144/98 [Left Arm] O2 Sat by Pulse 100 98 96 Oximetry (%) GENERAL: Awake, alert, and fully oriented, in mod. acute distress 2/2 pain. HEAD: Normal with no signs of trauma. EYES: Pupils equal, round and reactive to light, extraocular movements intact, sclera anicteric, conjunctiva clear. EARS, NOSE, THROAT: Ears normal, nares patent, Dry mucous membranes. NECK: Normal range of motion, supple without lymphadenopathy, JVD, or masses. LUNGS: Decreased breath sounds, poor air flow, faint wheezing HEART: Regular rate and rhythm, normal S1 and S2 ABDOMEN: BS+, Acute abdomen, rigid, significant guarding at the slightest touch MUSCULOSKELETAL: Normal range of motion at all joints. No bony deformities or tenderness. No CVA tenderness. UPPER EXTREMITIES: 2+ radial pulses, warm, well-perfused. No cyanosis. No clubbing. No peripheral edema. LOWER EXTREMITIES: warm, No calf tenderness. No peripheral edema. NEUROLOGICAL: No focal deficits noted PSYCHIATRIC: Cooperative. Good eye contact. Appropriate mood and affect. SKIN: Warm, dry, xerotic Laboratory Results - last 24 hr 06/14/19 06/14/19 06/14/19 20:30 20:30 20:30 WBC 11.8 H RBC 5.23 Hgb 14.3 Hct 43.5 D MCV 83.2 MCH 27.4 MCHC 32.9 RDW 15.6 Plt Count 299 D MPV 8.6 Absolute Neuts (auto) 9.9 H Neutrophils % 83.9 H D Lymphocytes % 9.5 D Monocytes % 6.2 Eosinophils % 0.1 D Basophils % 0.3 Nucleated RBC % 0 PT with INR INR PTT (Actin FS) VBG pH POC VBG pCO2 POC VBG pO2 VBG HCO3 VBG O2 Sat (Pan) VBG Base Excess Sodium 136 Potassium 4.6 Chloride 100 Carbon Dioxide 23 Anion Gap 14 BUN 25.4 H Creatinine 1.1 Est GFR (CKD-EPI)AfAm 78.41 Est GFR (CKD-EPI)NonAf 67.66 Random Glucose 108 H Calcium 10.1 Total Bilirubin 0.9 AST 13 L ALT 13 Alkaline Phosphatase 56 Total Protein 8.3 H Albumin 4.0 Lipase 41 L Cancelled 06/14/19 06/14/19 20:30 21:00 WBC RBC Hgb Hct MCV MCH MCHC RDW Plt Count MPV Absolute Neuts (auto) Neutrophils % Lymphocytes % Monocytes % Eosinophils % Basophils % Nucleated RBC % PT with INR 13.80 H INR 1.17 H PTT (Actin FS) 28.0 VBG pH 7.51 H POC VBG pCO2 32.2 L POC VBG pO2 69.4 H VBG HCO3 25.5 VBG O2 Sat (Pan) 94.8 H VBG Base Excess 3.4 H Sodium Potassium Chloride Carbon Dioxide Anion Gap BUN Creatinine Est GFR (CKD-EPI)AfAm Est GFR (CKD-EPI)NonAf Random Glucose Calcium Total Bilirubin AST ALT Alkaline Phosphatase Total Protein Albumin Lipase ASSESSMENT/PLAN: Pt. is a 68 y.o. M w/ PMHx. of COPD (not on home O2), Hep (untreated), multiple SBOs(s/p Ex-Lap for NHI in 2013 and 2017) presents for abdominal pain for 2 days. #Small Bowel Obstruction CT A/P: stomach is distended, SBO with dilatation up to 4.1cm, transition point in mid abdomen 2/2 adhesions?, NOT adjacent to anastamosis, no abcess or free air Attempted NG Tube Pt. unable to tolerate, will attempt repeat. Consult to Surgery appreciated, ED called Dr. Moseley however Dr. Lim did Pt.s prior Ex-laps. Dr. Moseley agreed to follow the Pt. NPO f/u Lactate IVF Zofran for Nausea and Morphine for Pain #COPD c/w home medications supplementat O2 as needed to maintain sPO2 above 90% Physical Therapy Will likely need Pre and Post prior to discharge for Oxygen assessment #Hep C GI referral on discharge #FEN NS@ 100 monitor electrolytes and replete as needed NPO #DVT Ppx. SCDs/ TEDs, will hold AC in anticipation for urgent Ex-Lap Visit type - Emergency Visit Emergency Visit: Yes ED Registration Date: 06/15/19 Care time: The patient presented to the Emergency Department on the above date and was hospitalized for further evaluation of their emergent condition. - New Patient This patient is new to me today: Yes Date on this admission: 06/15/19 - Critical Care Critical Care patient: No ATTENDING PHYSICIAN STATEMENT I saw and evaluated the patient. I reviewed the resident's note and discussed the case with the resident. I agree with the resident's findings and plan as documented. SUBJECTIVE: OBJECTIVE: ASSESSMENT AND PLAN:
[2019-06-15] MEDS ORDERED: ONDANSETRON 4 MG/2 ML VIAL ONE (07:28)
[2019-06-15] MEDS: MORPHINE SULFATE 2 MG/ML VIAL IVPUSH PRN ×4 (08:02→21:45)
[2019-06-15 08:47] LABS: MAGNESIUM 2.5 mg/dL (1.8-2.4); PHOSPHOROUS 4.4 mg/dL (2.5-4.9)
[2019-06-15 09:05] LABS: INR 1.17 (0.83-1.09); PROTHROMBIN TIME (PATIENT) 13.8 SEC (9.7-13.0)
[2019-06-15 09:55] LABS: URINE APPEARANCE CLEAR; URINE BILIRUBIN NEGATIVE (NEGATIVE); URINE COLOR YELLOW; URINE GLUCOSE (UA) NEGATIVE (NEGATIVE); URINE KETONE 15 mg/dl (NEGATIVE)
[2019-06-15 09:56] LABS: PH,URINE 5.5 (5.0-8.0); URINE LEUK ESTERASE NEGATIVE (NEGATIVE); URINE NITRITE NEGATIVE (NEGATIVE); URINE PROTEIN TRACE (NEGATIVE)
[2019-06-15 09:57] LABS: EPI CELLS 1.7 /HPF (0-5/HPF)
[2019-06-15 09:58] LABS: URINE RBC 4 /hpf (0-4); URINE WBC 1 /hpf (0-5)
[2019-06-15 09:59] LABS: HYALINE CASTS 23 /lpf (0-8); URINE BACTERIA 3.6 /hpf (NEGATIVE)
[2019-06-15] MEDS ORDERED: PATIENT'S OWN MEDICATION (NON-FORMULARY) (Ipratropium/Albuterol Sulfate [Combivent Respima IH SCH (10:00)
--- NOTE | 2019-06-15 10:23 | PN ---
Progress Note (short form) - Note Progress Note: Subjective: has mid abdominal discomfort, cont to have nausea and vomiting , green , non bloody emesis, no CP , no SOB , no fever or chills. sx started 2 days ago. he feels abd is distended . last SBO was 5 yrs ago. Objective: Vital Signs: Last Vital Signs Temp Pulse Resp BP Pulse Ox 98 F 80 16 114/84 98 06/15/19 08:00 06/15/19 08:00 06/15/19 08:00 06/15/19 08:00 06/15/19 08:00 Laboratory Results - last 24 hr 06/14/19 06/14/19 06/14/19 05:08 20:30 20:30 WBC 11.8 H RBC 5.23 Hgb 14.3 Hct 43.5 D MCV 83.2 MCH 27.4 MCHC 32.9 RDW 15.6 Plt Count 299 D MPV 8.6 Absolute Neuts (auto) 9.9 H Neutrophils % 83.9 H D Lymphocytes % 9.5 D Monocytes % 6.2 Eosinophils % 0.1 D Basophils % 0.3 Nucleated RBC % 0 PT with INR INR PTT (Actin FS) VBG pH POC VBG pCO2 POC VBG pO2 VBG HCO3 VBG O2 Sat (Pan) VBG Base Excess Sodium 136 Potassium 4.6 Chloride 100 Carbon Dioxide 23 Anion Gap 14 BUN 25.4 H Creatinine 1.1 Est GFR (CKD-EPI)AfAm 78.41 Est GFR (CKD-EPI)NonAf 67.66 Random Glucose 108 H Lactic Acid Calcium 10.1 Phosphorus Magnesium Total Bilirubin 0.9 AST 13 L ALT 13 Alkaline Phosphatase 56 Total Protein 8.3 H Albumin 4.0 Lipase 41 L Urine Color Urine Appearance Urine pH Ur Specific [place] Urine Protein Urine Glucose (UA) Urine Ketones Urine Blood Urine Nitrite Urine Bilirubin Urine Urobilinogen Ur Leukocyte Esterase Urine WBC (Auto) Urine RBC (Auto) Urine Casts (Auto) U Epithel Cells (Auto) Urine Bacteria (Auto) Blood Type A POSITIVE Antibody Screen Negative 06/14/19 06/14/19 06/14/19 20:30 20:30 21:00 WBC RBC Hgb Hct MCV MCH MCHC RDW Plt Count MPV Absolute Neuts (auto) Neutrophils % Lymphocytes % Monocytes % Eosinophils % Basophils % Nucleated RBC % PT with INR 13.80 H INR 1.17 H PTT (Actin FS) 28.0 VBG pH 7.51 H POC VBG pCO2 32.2 L POC VBG pO2 69.4 H VBG HCO3 25.5 VBG O2 Sat (Pan) 94.8 H VBG Base Excess 3.4 H Sodium Potassium Chloride Carbon Dioxide Anion Gap BUN Creatinine Est GFR (CKD-EPI)AfAm Est GFR (CKD-EPI)NonAf Random Glucose Lactic Acid Calcium Phosphorus Magnesium Total Bilirubin AST ALT Alkaline Phosphatase Total Protein Albumin Lipase Cancelled Urine Color Urine Appearance Urine pH Ur Specific [place] Urine Protein Urine Glucose (UA) Urine Ketones Urine Blood Urine Nitrite Urine Bilirubin Urine Urobilinogen Ur Leukocyte Esterase Urine WBC (Auto) Urine RBC (Auto) Urine Casts (Auto) U Epithel Cells (Auto) Urine Bacteria (Auto) Blood Type Antibody Screen 06/15/19 06/15/19 06/15/19 05:08 08:08 08:08 WBC RBC Hgb Hct MCV MCH MCHC RDW Plt Count MPV Absolute Neuts (auto) Neutrophils % Lymphocytes % Monocytes % Eosinophils % Basophils % Nucleated RBC % PT with INR 13.80 H INR 1.17 H PTT (Actin FS) VBG pH POC VBG pCO2 POC VBG pO2 VBG HCO3 VBG O2 Sat (Pan) VBG Base Excess Sodium Potassium Chloride Carbon Dioxide Anion Gap BUN Creatinine Est GFR (CKD-EPI)AfAm Est GFR (CKD-EPI)NonAf Random Glucose Lactic Acid 1.5 Calcium Phosphorus Magnesium Total Bilirubin AST ALT Alkaline Phosphatase Total Protein Albumin Lipase Urine Color Yellow Urine Appearance Clear Urine pH 5.5 Ur Specific [place] 1.086 H Urine Protein Trace Urine Glucose (UA) Negative Urine Ketones 15 mg/dl Urine Blood Negative Urine Nitrite Negative Urine Bilirubin Negative Urine Urobilinogen 1.0 Ur Leukocyte Esterase Negative Urine WBC (Auto) 1 Urine RBC (Auto) 4 Urine Casts (Auto) 23 U Epithel Cells (Auto) 1.7 Urine Bacteria (Auto) 3.6 Blood Type Antibody Screen 06/15/19 08:08 WBC RBC Hgb Hct MCV MCH MCHC RDW Plt Count MPV Absolute Neuts (auto) Neutrophils % Lymphocytes % Monocytes % Eosinophils % Basophils % Nucleated RBC % PT with INR INR PTT (Actin FS) VBG pH POC VBG pCO2 POC VBG pO2 VBG HCO3 VBG O2 Sat (Pan) VBG Base Excess Sodium Potassium Chloride Carbon Dioxide Anion Gap BUN Creatinine Est GFR (CKD-EPI)AfAm Est GFR (CKD-EPI)NonAf Random Glucose Lactic Acid Calcium Phosphorus 4.4 Magnesium 2.5 H Total Bilirubin AST ALT Alkaline Phosphatase Total Protein Albumin Lipase Urine Color Urine Appearance Urine pH Ur Specific [place] Urine Protein Urine Glucose (UA) Urine Ketones Urine Blood Urine Nitrite Urine Bilirubin Urine Urobilinogen Ur Leukocyte Esterase Urine WBC (Auto) Urine RBC (Auto) Urine Casts (Auto) U Epithel Cells (Auto) Urine Bacteria (Auto) Blood Type Antibody Screen Physical Exam: NAD , awake, alert, copperative, vomiting ( green liquid , no blood ) . HEENT: MMM, b/l archus senalis, round equa pupisl, reactive to light , erythematous oropharynx , CV: RRR, no MRG Lungs: CTAB Abd: slightly distended, TTP in all quadrant, decreased BS, + rebound tenderness . Ext : No edema or erythema on upper or lower extremities . NEuro : EOMI, no facial droop, tongue and uvula at mid line., strength 5/5 in upper and lwoer extremities proximally and distally. Imaging: CT prelim read: SBO with transition point in mid abd. no free air . Assessment/Plan: 68 y/o man with h/o COPD, not on O2 , s/p appendectomy, untreated hepatitis C, recurrent SBO with last ex-lap with lysis of adhesions in 10/22 , who presented with ABd pain , N/V and was found to have Acute SBO. 1- SBO: likely due to adhesions. No signs of perforation on prelim CT. nl lactic , but has rebound tenderness. - wait for final CT read. - NPO - NGT was tried multiple times, but was not successful . will ask Sx to place. - copmpazine for nausea - Surgery consult pending . Spke to Dr. Moseley. he will be evaluated shortly - Had a fever last night. ? need for Abx. will ask ID help - will reepat CBC and BMP now 2- H/o COPD: cont nebs and inhalers . 3- h/o lower back pain : hold oxy fo rnow hold Neurontin until taking PO 4- DVT PX: SCDs for now in case a surgical procedure is planned Meds were obtained from him and updated in EMR Visit type - Emergency Visit Emergency Visit: Yes ED Registration Date: 06/15/19 Care time: The patient presented to the Emergency Department on the above date and was hospitalized for further evaluation of their emergent condition. - New Patient This patient is new to me today: Yes Date on this admission: 06/15/19 - Critical Care Critical Care patient: No
[2019-06-15] MEDS: FLUTICASONE/SALMETEROL 100 MCG/50 MCG DISKUS IH SCH ×2 (10:29→23:27)
[2019-06-15 10:31] LABS: BLOOD UREA NITROGEN 29.6 mg/dL (7-18); CALCIUM 9.2 mg/dL (8.5-10.1); CREATININE 1.1 mg/dL (0.55-1.3); POTASSIUM 5.1 mmol/L (3.5-5.1)
[2019-06-15] MEDS ORDERED: ALBUTEROL SO4 2.5/IPRATROPIUM 0.5 INH SOL 3 ML VIAL.NEB. NEB PRN (10:43)
[2019-06-15] MEDS ORDERED: PROCHLORPERAZINE INJECTION 10 MG/2 ML VIAL IVPB PRN (10:50)
[2019-06-15 10:53] LABS: BASO % 0.5 % (0-2.0); EOS % 0.1 % (0-4.5); LYMPH % 9.1 % (8-40); MCHC 32.5 g/dl (32.0-35.9); MEAN CELL VOLUME 83.1 fl (80-96); MEAN PLT VOLUME 8.2 fl (7.5-11.1); MONO % 7.2 % (3.8-10.2); NEUT % 83.1 % (42.8-82.8); PLATELET COUNT 265 K/MM3 (134-434); RBC 4.82 M/mm3 (4.00-5.60); RDW 15.2 % (11.9-15.9); WHITE BLOOD COUNT 10.9 K/mm3 (4.0-10.0)
[2019-06-15 11:19] LABS: BLOOD UREA NITROGEN 29.2 mg/dL (7-18); CALCIUM 9.3 mg/dL (8.5-10.1); CREATININE 1.1 mg/dL (0.55-1.3); POTASSIUM 4.1 mmol/L (3.5-5.1)
[2019-06-15] MEDS: DEXTROSE 5%-NORMAL SALINE 1,000 ML IV SCH (11:20)
--- NOTE | 2019-06-15 11:58 | PN ---
Progress Note (short form) - Note Progress Note: ID consult dictated SBO- awaiting surgical evaluation and placement of NGT no fevers today can observe off antibiotics at this time unless surgery feels differently copd former substance use (many years ago)- hiv neg 2016 ?hep c by history Problem List - Problems (1) Small bowel obstruction Code(s): K56.69 - OTHER INTESTINAL OBSTRUCTION * DO NOT USE *
[2019-06-15] MEDS ORDERED: ALBUTEROL SO4 2.5/IPRATROPIUM 0.5 INH SOL 3 ML VIAL.NEB. NEB ONE (12:22)
--- NOTE | 2019-06-15 12:38 | CONSULT ---
- Consultation REQUESTING PROVIDER: CONSULT REQUEST: We have been asked to surgically evaluate this patient for abdominal pain/nausea and vomiting PCP:Georgia Butler HISTORY OF PRESENT ILLNESS: CTSP who is a68 y/o AA male w/ a h/o SBO in the past both managed conservatively and once by operative management PMHx: COPD PSHx: colon resection after colonoscopy/ACDF/appendectomy Home Medications Medication Instructions Recorded Ipratropium/Albuterol Sulfate 4 gm IH BID 10/13/17 [Combivent Respimat 20-100 Mcg] Fluticasone/Salmeterol [Advair 1 each IH BID 06/15/19 250-50 Diskus] Gabapentin [Neurontin] 300 mg PO HS 06/15/19 Megestrol Acetate Oral Susp 400 mg PO BID 06/15/19 [Megace Liquid -] Oxycodone HCl 10 mg PO BID PRN 06/15/19 Tizanidine HCl 2 mg PO BID PRN 06/15/19 traZODone HCL [Trazodone HCl] 50 mg PO HS PRN 06/15/19 Allergies Allergy/AdvReac Type Severity Reaction Status Date / Time No Known Allergies Allergy Verified 06/14/19 18:39 REVIEW OF SYSTEMS: CONSTITUTIONAL: Absent: fever, chills, diaphoresis, generalized weakness, malaise, loss of appetite, weight change CARDIOVASCULAR: Absent: chest pain, syncope, palpitations, irregular heart rate, lightheadedness , peripheral edema RESPIRATORY: Present: cough, shortness of breath, dyspnea with exertion, wheezing, stridor, hemoptysis GASTROINTESTINAL: Present: abdominal pain, abdominal distension, nausea, vomiting, Absent: diarrhea, constipation, melena, hematochezia GENITOURINARY: Absent: dysuria, frequency, urgency, hesitancy, hematuria, flank pain, genital pain MUSCULOSKELETAL: Present myalgia, arthralgia, joint swelling, back pain, neck pain SKIN: Absent: rash, itching, pallor HEMATOLOGIC/IMMUNOLOGIC: Absent: easy bleeding, easy bruising, lymphadenopathy NEUROLOGIC: Absent: headache, focal weakness, paresthesias, dizziness, unsteady gait, seizure, mental status changes, bladder or bowel incontinence PSYCHIATRIC: Absent: anxiety, depression, suicidal or homicidal ideation, hallucinations. PHYSICAL EXAM: GENERAL: Awake, alert, and fully oriented, in no acute distress. HEAD: Normal with no signs of trauma. EYES: PERRL, sclera anicteric, conjunctiva clear. NECK: Normal ROM, supple without lymphadenopathy, JVD, or masses. ABDOMEN: Soft,tender, distended, absent bowel sounds, minimal guarding, no rebound, no masses. No organomegaly. No hernias; healed MUSCULOSKELETAL: Normal ROM at all joints. No bony deformities or tenderness. No CVA tenderness. UPPER EXTREMITIES: 2+ pulses, warm, well-perfused. No cyanosis. Cap refill <2 seconds. No peripheral edema. LOWER EXTREMITIES: 2+ pulses, warm, well-perfused. No calf tenderness. No peripheral edema. NEUROLOGICAL: Normal speech, gait not observed. PSYCH: Cooperative. Good eye contact. Appropriate mood and affect. SKIN: Warm, dry, normal turgor, no rashes or lesions noted. Vital Signs Temperature 97.6 F 06/15/19 11:31 Pulse Rate 82 06/15/19 11:31 Respiratory Rate 16 06/15/19 11:31 Blood Pressure 122/86 06/15/19 11:31 O2 Sat by Pulse Oximetry (%) 98 06/15/19 11:31 Lab Results WBC 10.9 K/mm3 (4.0-10.0) H 06/15/19 10:38 RBC 4.82 M/mm3 (4.00-5.60) 06/15/19 10:38 Hgb 13.0 GM/dL (11.7-16.9) 06/15/19 10:38 Hct 40.0 % (35.4-49) 06/15/19 10:38 MCV 83.1 fl (80-96) 06/15/19 10:38 MCHC 32.5 g/dl (32.0-35.9) 06/15/19 10:38 RDW 15.2 % (11.9-15.9) 06/15/19 10:38 Plt Count 265 K/MM3 (134-434) 06/15/19 10:38 Sodium 138 mmol/L (136-145) 06/15/19 10:38 Potassium 4.1 mmol/L (3.5-5.1) 06/15/19 10:38 Chloride 103 mmol/L (98-107) 06/15/19 10:38 Carbon Dioxide 25 mmol/L (21-32) 06/15/19 10:38 Anion Gap 10 MMOL/L (8-16) 06/15/19 10:38 BUN 29.2 mg/dL (7-18) H 06/15/19 10:38 Creatinine 1.1 mg/dL (0.55-1.3) 06/15/19 10:38 Random Glucose 109 mg/dL (74-106) H 06/15/19 10:38 Calcium 9.3 mg/dL (8.5-10.1) 06/15/19 10:38 Blood Type A POSITIVE 06/14/19 05:08 Antibody Screen Negative 06/14/19 05:08 INR 1.17 (0.83-1.09) H 06/15/19 08:08 CT scan a/p; allimaging reviewed IMP: SBO recurrent PLAN: NPO/IVF/NGT/serial exams and imaging; I personally placed a 16G Eldena sump w/immediate return 0f > 100 cc of GI contents; this should remain on low continuous wall suction. Rodrigo Moseley MD FACS
--- NOTE | 2019-06-15 14:14 | EKG ---
Test Reason : Blood Pressure : / mmHG Vent. Rate : 085 BPM Atrial Rate : 085 BPM P-R Int : 140 ms QRS Dur : 058 ms QT Int : 366 ms P-R-T Axes : 072 077 077 degrees QTc Int : 435 ms NORMAL SINUS RHYTHM POSSIBLE LEFT ATRIAL ENLARGEMENT T WAVE ABNORMALITY, CONSIDER ANTERIOR ISCHEMIA ABNORMAL ECG Confirmed by MD JEVON, MERRY ([id number]) on 06/15/2019 2:14:23 PM Referred By: Confirmed By:MERRY ESCOTO MD
[2019-06-15] MEDS ORDERED: morphine SULFATE 4 MG/ML VIAL ONE (17:25)
--- NOTE | 2019-06-15 20:08 | CONS ---
DATE OF CONSULTATION: 06/15/2019 REQUESTED BY: Hospitalist service. This is a 68-year-old man who presented yesterday evening to the ER with abdominal pain for 2 days. He has had vomiting with nausea and vomiting. Last BM was Sunday morning. He also has chronic dyspnea on exertion. He has had no fevers or chills. He has had no chest pain or worsening of shortness of breath. He had a CAT scan of his abdomen and pelvis done in the ER that showed a small-bowel obstruction. He has had multiple small-bowel obstructions in the past. He is status post exploratory lap for lysis of adhesions in 2013 and 2017. I am asked to see him if he needs any antibiotics. NG tube insertion was attempted unsuccessfully in the ER. Past medical history is notable for COPD; multiple small-bowel obstructions; and he is status post exploratory lap x3, twice for adhesions and apparently prior to that for perforated colon during colonoscopy. He is status post appendectomy as well. SOCIAL HISTORY: He quit smoking 4 years ago. Occasional beer. Former substance user many years ago. He lives with his daughter, has a home health aide. 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 No known drug allergies. Medications include Combivent, Advair, Colace, and Percocet. REVIEW OF SYSTEMS: As above. He last underwent bowel surgery in October 2017 for lysis of adhesions. He has a history of hepatitis C as well. PHYSICAL EXAMINATION: General: He is a thin man. He is resting comfortably. Vital Signs: Temperature is 97.6. His T-max was 800 on admission. He has had no other elevated temperatures. Pulse is 82. Blood pressure 122/86. Respiratory rate 16. He is saturating 98% on 2 L. HEENT: Normocephalic. His eyes are anicteric. Neck: Supple. Lungs: Clear to auscultation. Heart: Regular rate and rhythm. Abdomen: Firm. He has a vertical incision. He has diffuse discomfort on palpation. Extremities: Without edema. White count is 10.9, hemoglobin 13, platelets 265. BUN 29, creatinine 1.1, his lactic acid is 1.5. His urinalysis is negative. HIV screen in 2017 was negative. CAT scan of the abdomen and pelvis is notable for small-bowel obstruction and emphysema. There is no perforation. In summary, this is a 68-year-old man with a small-bowel obstruction, awaiting surgical evaluation and placement of a G tube. He has no fevers. His white count is 10.5. I would suspect his abdominal discomfort is due to a small-bowel obstruction and he needs NG tube decompression, and that we can observe him off antibiotics at this time unless Surgery feels differently. Number 2, history of COPD. SHANNON VILCHIS M.D. [id number]
[2019-06-16] MEDS: MORPHINE SULFATE 2 MG/ML VIAL IVPUSH PRN ×4 (02:19→15:26)
[2019-06-16] MEDS: DEXTROSE 5%-NORMAL SALINE 1,000 ML IV SCH ×3 (06:35→19:00)
[2019-06-16 08:29] LABS: BASO % 0.2 % (0-2.0); EOS % 1.3 % (0-4.5); HEMATOCRIT 33.8 % (35.4-49); HEMOGLOBIN 11.1 GM/dL (11.7-16.9); LYMPH % 17.7 % (8-40); MCH 27.3 pg (25.7-33.7); MCHC 32.8 g/dl (32.0-35.9); MEAN CELL VOLUME 83.1 fl (80-96); MEAN PLT VOLUME 7.6 fl (7.5-11.1); NEUT % 70.8 % (42.8-82.8); PLATELET COUNT 215 K/MM3 (134-434); RBC 4.06 M/mm3 (4.00-5.60); WHITE BLOOD COUNT 8.4 K/mm3 (4.0-10.0)
[2019-06-16 09:06] LABS: ALBUMIN 2.8 g/dl (3.4-5.0); BILIRUBIN,TOTAL 0.8 mg/dL (0.2-1); BLOOD UREA NITROGEN 20.9 mg/dL (7-18); CALCIUM 8.2 mg/dL (8.5-10.1); CREATININE 0.8 mg/dL (0.55-1.3); MAGNESIUM 2.2 mg/dL (1.8-2.4); PHOSPHOROUS 2.7 mg/dL (2.5-4.9); POTASSIUM 3.8 mmol/L (3.5-5.1)
[2019-06-16] MEDS: FLUTICASONE/SALMETEROL 100 MCG/50 MCG DISKUS IH SCH ×2 (09:57→22:24)
--- NOTE | 2019-06-16 10:12 | PN ---
Progress Note (short form) - Note Progress Note: Attending Surgeon Seen in f/u; no c/o states he passed flatus VSS AF abdo-soft and non tender and non distended NGT-over 1 liter out yesterday; continues to drain IMP: SBO PLAN: Continue present tx.;AXR's today. Rodrigo Moseley MD FACS
--- NOTE | 2019-06-16 15:06 | PN ---
Progress Note (short form) - Note Progress Note: Patient evaluated by ICU team as requested. Patient evaluated, reports he is passing gas and has less pain. Surgery team is practicing conservative management. Patient hemodynamically stable. Vital Signs Temperature 98.3 F 06/16/19 13:11 Pulse Rate 74 06/16/19 13:11 Respiratory Rate 18 06/16/19 13:11 Blood Pressure 122/74 06/16/19 13:11 O2 Sat by Pulse Oximetry (%) 94 L 06/16/19 10:00 Physical: General: not in any acute distress, NG tube in place lugs: CTAL heart: RRR abdomen: diffusely tender, minimally bowel sounds Patient stable to remain on the floors. Please reconsult ICU team as needed. Thank you for this consultative opportunity.
[2019-06-16] MEDS: HEPARIN NA (PORCINE) 5,000 UNITS/ML 1ML VIAL SQ SCH ×2 (15:20→22:24)
[2019-06-16] MEDS ORDERED: MORPHINE SULFATE 2 MG/ML VIAL IVPUSH ONE (15:26)
--- NOTE | 2019-06-16 18:32 | PN ---
Physical Exam: SUBJECTIVE: Patient seen and examined at bedside. pt states that abdomen is improved, although has body pain from lack of home pain meds OBJECTIVE: Vital Signs Period Temp Pulse Resp BP Sys/Monsalve Pulse Ox Last 24 Hr 97.7 F-98.8 F 69-81 17-18 98-122/67-84 94-94 GENERAL: The patient is awake, alert, and fully oriented, in no acute distress. HEAD: Normal with no signs of trauma. EYES: extraocular movements intact ENT: moist mucous membranes. LUNGS: Breath sounds equal, no wheezes, no crackles, no accessory muscle use. On 2 L NC HEART: Regular rate and rhythm, S1, S2 without murmur, rub or gallop. ABDOMEN: Soft, nontender, nondistended, normoactive bowel sounds, no guarding EXTREMITIES: 2+ pulses, warm, well-perfused, no edema. NEUROLOGICAL: Cranial nerves II through XII grossly intact. Normal speech SKIN: Warm, dry, normal turgor, no rashes or lesions noted Laboratory Results - last 24 hr 06/16/19 06/16/19 07:50 07:50 WBC 8.4 RBC 4.06 Hgb 11.1 L Hct 33.8 L D MCV 83.1 MCH 27.3 MCHC 32.8 RDW 15.0 Plt Count 215 MPV 7.6 Absolute Neuts (auto) 5.9 Neutrophils % 70.8 Lymphocytes % 17.7 D Monocytes % 10.0 Eosinophils % 1.3 D Basophils % 0.2 Nucleated RBC % 0 Sodium 143 Potassium 3.8 Chloride 111 H Carbon Dioxide 27 Anion Gap 4 L BUN 20.9 H Creatinine 0.8 Est GFR (CKD-EPI)AfAm 104.90 Est GFR (CKD-EPI)NonAf 90.51 Random Glucose 113 H Calcium 8.2 L Phosphorus 2.7 Magnesium 2.2 Total Bilirubin 0.8 AST 11 L ALT 10 L Alkaline Phosphatase 37 L Total Protein 6.0 L Albumin 2.8 L Current Medications Albuterol/Ipratropium (Duoneb -) 1 amp NEB Q6H PRN PRN Reason: SHORTNESS OF BREATH Last Admin: 06/15/19 12:30 Dose: 1 amp Heparin Sodium (Porcine) (Heparin -) 5,000 unit SQ TID EMILY Last Admin: 06/16/19 15:20 Dose: 5,000 unit Dextrose/Sodium Chloride (D5-Ns -) 1,000 mls @ 75 mls/hr IV ASDIR [facility] Last Admin: 06/16/19 12:28 Dose: Not Given Morphine Sulfate (Morphine Sulfate) 2 mg IVPUSH Q4H PRN PRN Reason: PAIN LEVEL 7 - 10 Last Admin: 06/16/19 15:26 Dose: 2 mg Prochlorperazine Edisylate (Compazine Injection -) 10 mg IVPB Q4H PRN PRN Reason: NAUSEA AND/OR VOMITING Fluticasone/Salmeterol (Advair 100mcg/50mcg -) 1 puff IH BID [facility] Last Admin: 06/16/19 09:57 Dose: Not Given ASSESSMENT/PLAN: 68 yo M PMH of COPD ( not on home O2) , Hep C ( unTx), recurrent SBO ( s/p ex lap 10/22) presented to [facility] with Abdominal pain, n/v. pt found to have SBO. Acute SBO - c/w conservative mgmt : IVF, NPO, NGT as per Surg recs (Dr. Moseley) - rpt XR today shows no SBO -compazine for nausea -symptomatically improving - hold off Abx as per ID ( Dr. Lewis), continue to monitor COPD - taper O2 as tolerated -c/w duonebs , ventolin prn Hx of LBP - while NPO hold neurotin and oxy, will give morphine for pain control DVT ppx: Heparin Dispo: Med/ Surg Visit type - Emergency Visit Emergency Visit: No - New Patient This patient is new to me today: Yes Date on this admission: 06/16/19 - Critical Care Critical Care patient: No - Discharge Referral Referred to [facility] Med P.C.: No ATTENDING PHYSICIAN STATEMENT I saw and evaluated the patient. I reviewed the resident's note and discussed the case with the resident. I agree with the resident's findings and plan as documented. SUBJECTIVE: OBJECTIVE: ASSESSMENT AND PLAN:
--- NOTE | 2019-06-16 20:06 | PN ---
Teaching Attending Note Name of Resident: Monica Fernández ATTENDING PHYSICIAN STATEMENT I saw and evaluated the patient. I reviewed the resident's note and discussed the case with the resident. I agree with the resident's findings and plan as documented. SUBJECTIVE: seen at 9:30 am No fever or chills. abd pain is better today . passed gas OBJECTIVE: Physical Exam: NAD , awake, alert, copperative CV: RRR, no MRG Lungs: CTAB Abd: ND, minimal tenderness in all quadrants. no rebound. NL BS . Ext: No edema or erythema on upper or lower extremities . Assessment/Plan: 68 y/o man with h/o COPD, not on O2 , s/p appendectomy, untreated hepatitis C, recurrent SBO with last ex-lap with lysis of adhesions in 10/22 , who presented with ABd pain , N/V and was found to have Acute SBO. 1- SBO: likely due to adhesions. improved - NPO , NGT, IVF. monitor electrolytes, morphine -no recurrent fever . no need for Abx 2- H/o COPD: cont nebs and inhalers . 3- h/o lower back pain : hold oxy hold Neurontin until taking PO 4- DVT PX: SCDs . start SQ heparin
[2019-06-17] MEDS: MORPHINE SULFATE 2 MG/ML VIAL IVPUSH PRN ×3 (00:36→09:41)
[2019-06-17] MEDS: HEPARIN NA (PORCINE) 5,000 UNITS/ML 1ML VIAL SQ SCH ×3 (05:32→21:18)
[2019-06-17 07:40] LABS: HEMATOCRIT 35.8 % (35.4-49); HEMOGLOBIN 11.7 GM/dL (11.7-16.9); MCH 27.2 pg (25.7-33.7); MCHC 32.8 g/dl (32.0-35.9); MEAN PLT VOLUME 8.2 fl (7.5-11.1); PLATELET COUNT 231 K/MM3 (134-434); RBC 4.31 M/mm3 (4.00-5.60); RDW 15.1 % (11.9-15.9); WHITE BLOOD COUNT 10.3 K/mm3 (4.0-10.0)
[2019-06-17 07:52] LABS: ALBUMIN 3.2 g/dl (3.4-5.0); BILIRUBIN,TOTAL 0.7 mg/dL (0.2-1); BLOOD UREA NITROGEN 15.6 mg/dL (7-18); CALCIUM 8.2 mg/dL (8.5-10.1); CREATININE 0.8 mg/dL (0.55-1.3); MAGNESIUM 2.3 mg/dL (1.8-2.4); PHOSPHOROUS 2.4 mg/dL (2.5-4.9); POTASSIUM 3.3 mmol/L (3.5-5.1); TOT PROT 6.6 g/dl (6.4-8.2)
--- NOTE | 2019-06-17 08:31 | PN ---
Progress Note (short form) - Note Progress Note: GENERAL SURGERY 68 M admitted w/ recurrent SBO. Currently supine in bed with NGT on LWCS. States he is passing flatus but no bm yet. Denies n/v/f/c, CP, palpitations, SOB or THURMAN. AXR 06/16/19 --> no sbo Last Vital Signs Temp Pulse Resp BP Pulse Ox 98.6 F 75 18 123/78 94 L 06/17/19 05:57 06/17/19 05:57 06/17/19 05:57 06/17/19 05:57 06/16/19 21:00 CBC, BMP 06/17/19 07:00 06/17/19 07:00 NGT 24 Hr Output 06/16/19 06/16/19 06/16/19 06/17/19 06:00 19:14 21:40 06:22 NGT 100 400 300 650 Gen: nad ABD: scaphoid abd. nt. nd. LE: scd bilat. all compartments soft. Problem List - Problems (1) Small bowel obstruction Assessment/Plan: 68 yo male with recurrent SBO. AXR 06/16/19 shos that the SBO has resolved. Passing flatus. NGT output hi (placement most likely thru pylorus). His abd is benign. dc NGT Begin trial of clears OOB and ambulate PT DVT ppx Above plan discussed with Dr. Moseley and agrees. Code(s): K56.69 - OTHER INTESTINAL OBSTRUCTION * DO NOT USE * (2) COPD exacerbation Code(s): J44.1 - CHRONIC OBSTRUCTIVE PULMONARY DISEASE W (ACUTE) EXACERBATION (3) Cachexia Code(s): R64 - CACHEXIA (4) Hepatitis C, chronic Code(s): B18.2 - CHRONIC VIRAL HEPATITIS C
[2019-06-17] MEDS ORDERED: POTASSIUM PHOSPHATE 15 MM in DEXTROSE 5%-WATER - 250 ML IVPB ONE (09:00)
[2019-06-17] MEDS: FLUTICASONE/SALMETEROL 100 MCG/50 MCG DISKUS IH SCH ×2 (09:41→21:17)
[2019-06-17] MEDS: DEXTROSE 5%-NORMAL SALINE 1,000 ML IV SCH (13:58)
--- NOTE | 2019-06-17 18:11 | PN ---
Teaching Attending Note Name of Resident: Monica Fernández ATTENDING PHYSICIAN STATEMENT I saw and evaluated the patient. I reviewed the resident's note and discussed the case with the resident. I agree with the resident's findings and plan as documented. SUBJECTIVE:seen around noon No fever or chills. No N/V. abd pain is better OBJECTIVE: Physical Exam: NAD , awake, alert, cooperative CV: RRR, no MRG Lungs: CTAB Abd: ND, NT. nl BS Ext: No edema or erythema on upper or lower extremities . Assessment/Plan: 68 y/o man with h/o COPD, not on O2 , s/p appendectomy, untreated hepatitis C, recurrent SBO with last ex-lap with lysis of adhesions in 10/22 , who presented with ABd pain , N/V and was found to have Acute SBO. 1- SBO: likely due to adhesions. improved - improved . NGT removed - cont clears. - cont IVF . may decrease tomorrow or stop is tolrerates regular diet - dc morphine , start oxy 2- H/o COPD: cont nebs and inhalers . 3- h/o lower back pain: Resume neurontin 4- DVT PX: SCDs . SQ heparin
--- NOTE | 2019-06-17 18:34 | PN ---
Physical Exam: SUBJECTIVE: Patient seen and examined at bedside. pt states that the NGT was irritating him this morning but once it was removed he feels better. he denies abdominal pain, nausea, vomiting. passing flatus OBJECTIVE: Vital Signs Period Temp Pulse Resp BP Sys/Monsalve Pulse Ox Last 24 Hr 98.2 F-98.6 F 72-83 18-18 106-123/70-81 94-94 GENERAL: The patient is awake, alert, and fully oriented, in no acute distress. HEAD: Normal with no signs of trauma. LUNGS: Breath sounds equal, clear to auscultation bilaterally, no wheezes, no crackles, no accessory muscle use. On 2L NC HEART: Regular rate and rhythm, S1, S2 without murmur, rub or gallop. ABDOMEN: Soft, nontender, nondistended, normoactive bowel sounds, no guarding, no rebound EXTREMITIES: 2+ pulses, warm, well-perfused, no edema. SKIN: Warm, dry, normal turgor, no rashes or lesions noted Laboratory Results - last 24 hr 06/17/19 06/17/19 07:00 07:00 WBC 10.3 H RBC 4.31 Hgb 11.7 Hct 35.8 MCV 83.0 MCH 27.2 MCHC 32.8 RDW 15.1 Plt Count 231 MPV 8.2 Sodium 142 Potassium 3.3 L Chloride 111 H Carbon Dioxide 25 Anion Gap 6 L BUN 15.6 Creatinine 0.8 Est GFR (CKD-EPI)AfAm 104.90 Est GFR (CKD-EPI)NonAf 90.51 Random Glucose 105 Calcium 8.2 L Phosphorus 2.4 L Magnesium 2.3 Total Bilirubin 0.7 AST 12 L ALT 14 Alkaline Phosphatase 42 L Total Protein 6.6 Albumin 3.2 L Current Medications Albuterol/Ipratropium (Duoneb -) 1 amp NEB Q6H PRN PRN Reason: SHORTNESS OF BREATH Last Admin: 06/15/19 12:30 Dose: 1 amp Gabapentin (Neurontin -) 300 mg PO HS EMILY Heparin Sodium (Porcine) (Heparin -) 5,000 unit SQ TID [facility] Last Admin: 06/17/19 13:59 Dose: 5,000 unit Dextrose/Sodium Chloride (D5-Ns -) 1,000 mls @ 75 mls/hr IV ASDIR [facility] Last Admin: 06/17/19 13:58 Dose: 75 mls/hr Oxycodone HCl (Roxicodone -) 5 mg PO Q6H PRN PRN Reason: PAIN LEVEL 7 - 10 Prochlorperazine Edisylate (Compazine Injection -) 10 mg IVPB Q4H PRN PRN Reason: NAUSEA AND/OR VOMITING Fluticasone/Salmeterol (Advair 100mcg/50mcg -) 1 puff IH BID [facility] Last Admin: 06/17/19 09:41 Dose: 1 puff Trazodone HCl (Desyrel -) 50 mg PO HS PRN PRN Reason: INSOMNIA ASSESSMENT/PLAN: 68 yo M PMH of COPD ( not on home O2) , Hep C ( unTx), recurrent SBO ( s/p ex lap 10/22) presented to [facility] with Abdominal pain, n/v. pt found to have SBO. Acute SBO -NGT off, pt tolerating PO clear liquids. Pt states improvement -Surg recs (Dr. Moseley)appreciated - rpt XR yesterday shows no SBO -compazine for nausea - hold off Abx as per ID ( Dr. Lewis), continue to monitor - will start oxy for pain COPD - taper O2 as tolerated -c/w duonebs , ventolin prn - pre/post once tolerated - incentive spirometry Hx of LBP - will resume neurotin and oxy -PT eval appreciated DVT ppx: Heparin Dispo: Med/ Surg Visit type - Emergency Visit Emergency Visit: No - New Patient This patient is new to me today: No - Critical Care Critical Care patient: No - Discharge Referral Referred to [facility] Med P.C.: No ATTENDING PHYSICIAN STATEMENT I saw and evaluated the patient. I reviewed the resident's note and discussed the case with the resident. I agree with the resident's findings and plan as documented. SUBJECTIVE: OBJECTIVE: ASSESSMENT AND PLAN:
[2019-06-17] MEDS: GABAPENTIN 300 MG CAPSULE PO SCH (21:17)
[2019-06-17] MEDS: traZODone HCL 50 MG TABLET (FP) PO PRN (23:20)
[2019-06-17] MEDS: oxyCODONE HCL 5 MG TABLET PO PRN (23:20)
[2019-06-18] MEDS: HEPARIN NA (PORCINE) 5,000 UNITS/ML 1ML VIAL SQ SCH ×3 (05:59→21:56)
[2019-06-18] MEDS: DEXTROSE 5%-NORMAL SALINE 1,000 ML IV SCH ×2 (06:00→18:44)
[2019-06-18 07:57] LABS: BLOOD UREA NITROGEN 10.9 mg/dL (7-18); CALCIUM 7.6 mg/dL (8.5-10.1); CREATININE 0.8 mg/dL (0.55-1.3); MAGNESIUM 2.1 mg/dL (1.8-2.4); PHOSPHOROUS 2.6 mg/dL (2.5-4.9); POTASSIUM 3.5 mmol/L (3.5-5.1)
--- NOTE | 2019-06-18 08:48 | PN ---
Physical Exam: SUBJECTIVE: Patient seen and examined at bedside. pt states that he is feeling better and passing flatus. OBJECTIVE: Vital Signs Period Temp Pulse Resp BP Sys/Monsalve Pulse Ox Last 24 Hr 98.2 F-99.0 F 64-83 18-18 95-111/61-81 94-94 GENERAL: The patient is awake, alert, and fully oriented, in no acute distress. HEAD: Normal with no signs of trauma. EYES: PERRL, extraocular movements intact, sclera anicteric, conjunctiva clear. No ptosis. NECK: Trachea midline, full range of motion, supple. LUNGS: Breath sounds equal, clear to auscultation bilaterally, no wheezes, no crackles, no accessory muscle use. HEART: Regular rate and rhythm, S1, S2 without murmur, rub or gallop. ABDOMEN: Soft, nontender, nondistended, normoactive bowel sounds, no guarding EXTREMITIES: 2+ pulses, warm, well-perfused, no edema. SKIN: Warm, dry, normal turgor, no rashes or lesions noted Laboratory Results 06/18/19 06:55 Current Medications Albuterol/Ipratropium (Duoneb -) 1 amp NEB Q6H PRN PRN Reason: SHORTNESS OF BREATH Last Admin: 06/15/19 12:30 Dose: 1 amp Gabapentin (Neurontin -) 300 mg PO HS [facility] Last Admin: 06/17/19 21:17 Dose: Not Given Heparin Sodium (Porcine) (Heparin -) 5,000 unit SQ TID [facility] Last Admin: 06/18/19 14:47 Dose: 5,000 unit Dextrose/Sodium Chloride (D5-Ns -) 1,000 mls @ 75 mls/hr IV ASDIR [facility] Last Admin: 06/18/19 06:00 Dose: 75 mls/hr Oxycodone HCl (Roxicodone -) 5 mg PO Q6H PRN PRN Reason: PAIN LEVEL 7 - 10 Last Admin: 06/18/19 10:38 Dose: 5 mg Prochlorperazine Edisylate (Compazine Injection -) 10 mg IVPB Q4H PRN PRN Reason: NAUSEA AND/OR VOMITING Fluticasone/Salmeterol (Advair 100mcg/50mcg -) 1 puff IH BID [facility] Last Admin: 06/18/19 09:45 Dose: 1 puff Trazodone HCl (Desyrel -) 50 mg PO HS PRN PRN Reason: INSOMNIA Last Admin: 06/17/19 23:20 Dose: 50 mg ASSESSMENT/PLAN: 68 yo M PMH of COPD ( not on home O2) , Hep C ( unTx), recurrent SBO ( s/p ex lap 10/22) presented to [facility] with Abdominal pain, n/v. pt found to have SBO. Acute SBO -NGT off, pt tolerating PO regular diet tolerated. Pt states improvement -Surg recs (Dr. Moseley)appreciated -compazine for nausea - hold off Abx as per ID ( Dr. Lewis), continue to monitor - gabapentin and oxycodon for pain . offered lidoderm pt doesnt want COPD - taper O2 as tolerated -c/w duonebs , ventolin prn - pre/post once tolerated - incentive spirometry Hx of LBP - will resume neurotin and oxy -PT eval appreciated. Pt keeps refusing PT DVT ppx: Heparin Dispo: Med/ Surg Visit type - Emergency Visit Emergency Visit: No - New Patient This patient is new to me today: No - Critical Care Critical Care patient: No - Discharge Referral Referred to [facility] Med P.C.: No ATTENDING PHYSICIAN STATEMENT I saw and evaluated the patient. I reviewed the resident's note and discussed the case with the resident. I agree with the resident's findings and plan as documented. SUBJECTIVE: OBJECTIVE: ASSESSMENT AND PLAN:
--- NOTE | 2019-06-18 09:04 | PN ---
Teaching Attending Note Name of Resident: Monica Fernández ATTENDING PHYSICIAN STATEMENT I saw and evaluated the patient. I reviewed the resident's note and discussed the case with the resident. I agree with the resident's findings and plan as documented. SUBJECTIVE: Patient is slightely better today passing flatus OBJECTIVE: Vital Signs Temperature 98.9 F 06/18/19 06:00 Pulse Rate 64 06/18/19 06:00 Respiratory Rate 18 06/18/19 06:00 Blood Pressure 95/61 06/18/19 06:00 O2 Sat by Pulse Oximetry (%) 94 L 06/17/19 20:58 GENERAL: The patient is awake, alert, and fully oriented, in no acute distress. HEAD: Normal with no signs of trauma. EYES: PERRL, extraocular movements intact, sclera anicteric, conjunctiva clear. ENT: Ears normal, oropharynx clear without exudates, moist mucous membranes. NECK: Trachea midline, full range of motion, supple. LUNGS: Breath sounds equal, clear to auscultation bilaterally, no wheezes, no crackles, no accessory muscle use. HEART: Regular rate and rhythm, S1, S2 without murmur, rub or gallop. ABDOMEN: Soft, nontender, nondistended, normoactive bowel sounds, no guarding, no rebound, no hepatosplenomegaly, no masses. EXTREMITIES: 2+ pulses, warm, well-perfused, no edema. NEUROLOGICAL: Cranial nerves II through XII grossly intact. Normal speech, gait not observed. PSYCH: Normal mood, normal affect. SKIN: Warm, dry, normal turgor, no rashes or lesions noted CBCD WBC 10.3 K/mm3 (4.0-10.0) H 06/17/19 07:00 RBC 4.31 M/mm3 (4.00-5.60) 06/17/19 07:00 Hgb 11.7 GM/dL (11.7-16.9) 06/17/19 07:00 Hct 35.8 % (35.4-49) 06/17/19 07:00 MCV 83.0 fl (80-96) 06/17/19 07:00 MCHC 32.8 g/dl (32.0-35.9) 06/17/19 07:00 RDW 15.1 % (11.9-15.9) 06/17/19 07:00 Plt Count 231 K/MM3 (134-434) 06/17/19 07:00 MPV 8.2 fl (7.5-11.1) 06/17/19 07:00 CMP Sodium 140 mmol/L (136-145) 06/18/19 06:55 Potassium 3.5 mmol/L (3.5-5.1) 06/18/19 06:55 Chloride 110 mmol/L (98-107) H 06/18/19 06:55 Carbon Dioxide 24 mmol/L (21-32) 06/18/19 06:55 Anion Gap 6 MMOL/L (8-16) L 06/18/19 06:55 BUN 10.9 mg/dL (7-18) 06/18/19 06:55 Creatinine 0.8 mg/dL (0.55-1.3) 06/18/19 06:55 Random Glucose 97 mg/dL (74-106) 06/18/19 06:55 Calcium 7.6 mg/dL (8.5-10.1) L 06/18/19 06:55 Total Bilirubin 0.7 mg/dL (0.2-1) 06/17/19 07:00 AST 12 U/L (15-37) L 06/17/19 07:00 ALT 14 U/L (13-61) 06/17/19 07:00 Alkaline Phosphatase 42 U/L (45-117) L 06/17/19 07:00 Total Protein 6.6 g/dl (6.4-8.2) 06/17/19 07:00 Albumin 3.2 g/dl (3.4-5.0) L 06/17/19 07:00 Current Medications Generic Name Dose Route Start Last Admin Trade Name Freq PRN Reason Stop Dose Admin Albuterol/Ipratropium 1 amp 06/15/19 10:43 06/15/19 12:30 Duoneb - NEB 1 amp Q6H PRN Administration SHORTNESS OF BREATH Gabapentin 300 mg 06/17/19 22:00 06/17/19 21:17 Neurontin - PO Not Given HS EMILY Heparin Sodium (Porcine) 5,000 unit 06/16/19 14:00 06/18/19 05:59 Heparin - SQ 5,000 unit TID EMILY Administration Dextrose/Sodium Chloride 1,000 mls @ 75 mls/hr 06/16/19 11:05 06/18/19 06:00 D5-Ns - IV 75 mls/hr ASDIR [facility] Administration Oxycodone HCl 5 mg 06/17/19 18:15 06/17/19 23:20 Roxicodone - PO 5 mg Q6H PRN Administration PAIN LEVEL 7 - 10 Prochlorperazine Edisylate 10 mg 06/15/19 10:50 Compazine Injection - IVPB Q4H PRN NAUSEA AND/OR VOMITING Fluticasone/Salmeterol 1 puff 06/15/19 10:00 06/17/19 21:17 Advair 100mcg/50mcg - IH Not Given BID EMILY Trazodone HCl 50 mg 06/17/19 18:15 06/17/19 23:20 Desyrel - PO 50 mg HS PRN Administration INSOMNIA Home Medications Medication Instructions Recorded Ipratropium/Albuterol Sulfate 4 gm IH BID 10/13/17 [Combivent Respimat 20-100 Mcg] Fluticasone/Salmeterol [Advair 1 each IH BID 06/15/19 250-50 Diskus] Gabapentin [Neurontin] 300 mg PO HS 06/15/19 Megestrol Acetate Oral Susp 400 mg PO BID 06/15/19 [Megace Liquid -] Oxycodone HCl 10 mg PO BID PRN 06/15/19 Tizanidine HCl 2 mg PO BID PRN 06/15/19 traZODone HCL [Trazodone HCl] 50 mg PO HS PRN 06/15/19 Microbiology 06/15/19 05:08 Urine - Urine Clean Catch Urine Culture - Final NO GROWTH OBTAINED ASSESSMENT AND PLAN: Patient is a 68yom with PMhx of COPD, not on O2 , s/p appendectomy, untreated hepatitis C, recurrent SBO with last ex-lap with lysis of adhesions on 10/22 , who presented with Abdominal pain with N/V and was found to have Acute SBO. # Acute SBO: likely due to adhesions. improving , passing flatus s/p NGT , continue clears. advance diet as tolerated dc morphine , start oxy # H/o COPD: cont nebs and inhalers . # h/o lower back pain: Resume neurontin DVT PX: SCDs . SQ heparin
[2019-06-18] MEDS: FLUTICASONE/SALMETEROL 100 MCG/50 MCG DISKUS IH SCH ×2 (09:45→21:56)
[2019-06-18] MEDS: oxyCODONE HCL 5 MG TABLET PO PRN (10:38)
--- NOTE | 2019-06-18 11:01 | PN ---
Progress Note (short form) - Note Progress Note: Surgery 68 M admitted w/ recurrent SBO. Patient states is continues to feel better and has little to no pain. He is passing flatus but no bm yet. NGT was removed yesterday and he has been tolerating his clears. Patient Denies n/v/f/c, CP, palpitations, SOB or THURMAN. Vital Signs Temp 97.6 F 06/18/19 09:04 Pulse 77 06/18/19 09:04 Resp 18 06/18/19 09:04 BP 100/65 06/18/19 09:04 Pulse Ox 94 L 06/17/19 20:58 Intake & Output 06/17/19 06/17/19 06/18/19 11:59 23:59 11:59 Intake Total 1740 400 Output Total 650 230 Balance -650 1510 400 Weight 98 lb Intake: IV 750 D5-Ns - 1,000 ml @ 75 mls 750 /hr IV ASDIR [facility]ILY Rx#: [id number] IVPB 250 Oral 500 400 CBI Intake 240 Output: Gastric Drainage 650 230 Other: Voiding Method Urinal Urinal Urinal # Unmeasured Voids Void 2 Height 5 ft 6 in Body Mass Index (BMI) 15.7 CBC, BMP 06/17/19 07:00 06/18/19 06:55 Gen:A&Ox3, NAD ABD: soft, ND with very mild ttp throughout LE: scd bilat. all compartments soft. Problem List - Problems (1) Small bowel obstruction Assessment/Plan: Assessment/Plan: 68 yo male with recurrent SBO. appears to be resolving. Passing flatus and his abd is benign. Advance to regular diet Encourage OOB and ambulate PT DVT ppx Evaluation and plan discussed with Dr Moseley Code(s): K56.69 - OTHER INTESTINAL OBSTRUCTION * DO NOT USE *
[2019-06-18] MEDS ORDERED: CYCLOBENZAPRINE HCL 5 MG TABLET PO ONE (19:28)
[2019-06-18] MEDS: GABAPENTIN 300 MG CAPSULE PO SCH (21:49)
[2019-06-18] MEDS: traZODone HCL 50 MG TABLET (FP) PO PRN (21:49)
[2019-06-19] MEDS: HEPARIN NA (PORCINE) 5,000 UNITS/ML 1ML VIAL SQ SCH ×3 (05:12→21:38)
[2019-06-19] MEDS: DEXTROSE 5%-NORMAL SALINE 1,000 ML IV SCH ×3 (06:57→21:37)
[2019-06-19 07:54] LABS: HEMATOCRIT 32.5 % (35.4-49); HEMOGLOBIN 10.9 GM/dL (11.7-16.9); MCH 27.6 pg (25.7-33.7); MCHC 33.4 g/dl (32.0-35.9); MEAN CELL VOLUME 82.5 fl (80-96); MEAN PLT VOLUME 8.4 fl (7.5-11.1); PLATELET COUNT 199 K/MM3 (134-434); RBC 3.94 M/mm3 (4.00-5.60); WHITE BLOOD COUNT 7.6 K/mm3 (4.0-10.0)
[2019-06-19 09:26] LABS: BLOOD UREA NITROGEN 12.5 mg/dL (7-18); CALCIUM 8.1 mg/dL (8.5-10.1); CREATININE 0.8 mg/dL (0.55-1.3); POTASSIUM 3.7 mmol/L (3.5-5.1)
--- NOTE | 2019-06-19 09:44 | PN ---
Progress Note (short form) - Note Progress Note: Surgery 68 M admitted w/ recurrent SBO. Patient states is continues to feel better and has little to no pain. He is passing flatus but no bm yet. He has been tolerating a regular diet. Patient Denies n/v/f/c, CP, palpitations, SOB or THURMAN. 2 Vital Signs Temp 98.5 F 06/19/19 09:00 Pulse 93 H 06/19/19 09:00 Resp 20 06/19/19 09:00 BP 132/84 06/19/19 09:00 Pulse Ox 98 06/18/19 21:00 Intake & Output 06/18/19 06/18/19 06/19/19 11:59 23:59 11:59 Intake Total 476 771 0438 Output Total 1300 Balance 400 825 -100 Intake: IV 825 900 D5-Ns - 1,000 ml @ 75 mls 825 900 /hr IV ASDIR EMILY Rx#: [id number] Oral 400 300 Output: Urine 1300 Void 1300 Other: Voiding Method Urinal Urinal # Unmeasured Voids Void 1 Bowel Movement No CBC, BMP 06/19/19 07:25 06/19/19 07:25 Gen:A&Ox3, NAD ABD: soft, ND with very mild ttp at LLQ, LE: scd bilat. all compartments soft. Problem List - Problems (1) Small bowel obstruction Assessment/Plan: Assessment/Plan: 68 yo male with recurrent SBO. appears to be resolving. Passing flatus and his abd is benign. continue regular diet Encourage OOB and ambulate PT DVT ppx Reconsult surgery PRN Evaluation and plan discussed with Dr Moseley Code(s): K56.69 - OTHER INTESTINAL OBSTRUCTION * DO NOT USE *
[2019-06-19] MEDS ORDERED: DOCUSATE SODIUM 100 MG CAPSULE (FP) PO ONE (09:54)
[2019-06-19] MEDS ORDERED: POLYETHYLENE GLYCOL 3350 119 GM BTL PO ONE ×2 (09:54→16:41)
[2019-06-19] MEDS: FLUTICASONE/SALMETEROL 100 MCG/50 MCG DISKUS IH SCH ×2 (10:34→21:39)
[2019-06-19] MEDS: LIDOCAINE 5% TOPICAL PATCH TP SCH (10:35)
[2019-06-19] MEDS: oxyCODONE HCL 5 MG TABLET PO PRN ×2 (14:02→20:26)
--- NOTE | 2019-06-19 14:15 | DS ---
Physical Exam: SUBJECTIVE: Patient seen and examined at bedside. pt has no acute complaints. pt states he is standing and walked with PT OBJECTIVE: Vital Signs Period Temp Pulse Resp BP Sys/Monsalve Pulse Ox Last 24 Hr 98.2 F-99.0 F 71-93 18-20 97-132/64-84 98-99 PHYSICAL EXAM GENERAL: The patient is awake, alert, and fully oriented, in no acute distress. LUNGS: Breath sounds equal, clear to auscultation bilaterally, no wheezes, no crackles, no accessory muscle use. HEART: Regular rate and rhythm, S1, S2 without murmur, rub or gallop. ABDOMEN: Soft, nontender, nondistended, normoactive bowel sounds, no guarding EXTREMITIES: 2+ pulses, warm, well-perfused, no edema. NEUROLOGICAL: Cranial nerves II through XII grossly intact. Normal speech, gait not observed. PSYCH: Normal mood, normal affect. SKIN: Warm, dry, normal turgor, no rashes or lesions noted. LABS Laboratory Results - last 24 hr 06/19/19 06/19/19 07:25 07:25 WBC 7.6 RBC 3.94 L Hgb 10.9 L Hct 32.5 L MCV 82.5 MCH 27.6 MCHC 33.4 RDW 15.0 Plt Count 199 MPV 8.4 Sodium 143 Potassium 3.7 Chloride 114 H Carbon Dioxide 23 Anion Gap 6 L BUN 12.5 Creatinine 0.8 Est GFR (CKD-EPI)AfAm 104.90 Est GFR (CKD-EPI)NonAf 90.51 Random Glucose 94 Calcium 8.1 L HOSPITAL COURSE: Date of Admission:06/15/19 68 yo M PMH of COPD ( not on home O2) , Hep C ( unTx), recurrent SBO ( s/p ex lap 10/22) presented to [facility] with Abdominal pain, n/v. pt found to have SBO. pt was on NGT, NPO, IVF for 2 days. pt's diet was slowly advanced as tolerated. pt did not require Abx as per ID. Surgery recs were appreciated throught hospital course. pt was given duonebs and ventolin for COPD and was instructed to use incentive spirometry. pt will be dc with [facility] Date of Discharge: 06/19/19 Minutes to complete discharge: 36 Discharge Summary Problems reviewed: Yes Reason For Visit: SMALL BOWEL OBSTRUCTION Current Active Problems Small bowel obstruction (Acute) Condition: Guarded - Instructions Diet, Activity, Other Instructions: YOUR VISIT. You came to the hospital because you were having abdominal pain You were admitted to the hospital for a small bowel obstruction. Your obstruction resolved and you are now eating and passing gas. While here you were seen by the medicine physicians and surgeons You are now stable and may return home. MEDICATIONS. Please continue to take your medications as prescribed: Please continue your home medications as prescribed. ADDITIONAL CARE. Please make an appointment to see your primary care provider, Dr. Bruce dominguez from today. Please have a CBC and a CMP drawn at that time. ADDITIONAL INFORMATION. Please call 911 or come directly to the emergency department if you experience unusual headache, vision change, shortness of breath, chest pain, numbness, tingling, loss of alertness/awareness, loss of function, unusual bleeding or any alarming symptoms. Referrals: Zohaib Barrera MD [Primary Care Provider] - Disposition: [facility]/HOME HEALTH CARE - Home Medications Comprehensive Discharge Medication List: Ambulatory Orders Ipratropium/Albuterol Sulfate [Combivent Respimat 20-100 Mcg] 4 gm IH BID Fluticasone/Salmeterol [Advair 250-50 Diskus] 1 each IH BID 06/15/19 Gabapentin [Neurontin] 300 mg PO HS 06/15/19 Megestrol Acetate Oral Susp [Megace Liquid -] 400 mg PO BID 06/15/19 Oxycodone HCl 10 mg PO BID PRN 06/15/19 Tizanidine HCl 2 mg PO BID PRN 06/15/19 traZODone HCL [Trazodone HCl] 50 mg PO HS PRN 06/15/19 This patient is new to me today: No Emergency Visit: No Critical Care patient: No - Discharge Referral Referred to [facility] Med P.C.: No ATTENDING PHYSICIAN STATEMENT I saw and evaluated the patient. I reviewed the resident's note and discussed the case with the resident. I agree with the resident's findings and plan as documented. SUBJECTIVE: OBJECTIVE: ASSESSMENT AND PLAN:
[2019-06-19] MEDS ORDERED: LACTULOSE 20 GM/30 ML UDC (FOR ORAL USE ONLY) PO ONE (16:41)
--- NOTE | 2019-06-19 20:53 | PN ---
Teaching Attending Note Name of Resident: Monica Fernández ATTENDING PHYSICIAN STATEMENT I saw and evaluated the patient. I reviewed the resident's note and discussed the case with the resident. I agree with the resident's findings and plan as documented. SUBJECTIVE: Patient is better , tolerating diet. no Bm yet Vital Signs Temperature 98.1 F 06/19/19 18:55 Pulse Rate 66 06/19/19 18:55 Respiratory Rate 18 06/19/19 18:55 Blood Pressure 120/73 06/19/19 18:55 O2 Sat by Pulse Oximetry (%) 99 06/19/19 09:00 GENERAL: The patient is awake, alert, and fully oriented, in no acute distress. HEAD: Normal with no signs of trauma. EYES: PERRL, extraocular movements intact, sclera anicteric, conjunctiva clear. ENT: Ears normal, oropharynx clear without exudates, moist mucous membranes. NECK: Trachea midline, full range of motion, supple. LUNGS: Breath sounds equal, clear to auscultation bilaterally, no wheezes, no crackles, no accessory muscle use. HEART: Regular rate and rhythm, S1, S2 without murmur, rub or gallop. ABDOMEN: Soft, nontender, nondistended, normoactive bowel sounds, no guarding, no rebound, no hepatosplenomegaly, no masses. EXTREMITIES: 2+ pulses, warm, well-perfused, no edema. NEUROLOGICAL: Cranial nerves II through XII grossly intact. Normal speech, gait not observed. PSYCH: Normal mood, normal affect. SKIN: Warm, dry, normal turgor, no rashes or lesions noted CBCD WBC 7.6 K/mm3 (4.0-10.0) 06/19/19 07:25 RBC 3.94 M/mm3 (4.00-5.60) L 06/19/19 07:25 Hgb 10.9 GM/dL (11.7-16.9) L 06/19/19 07:25 Hct 32.5 % (35.4-49) L 06/19/19 07:25 MCV 82.5 fl (80-96) 06/19/19 07:25 MCHC 33.4 g/dl (32.0-35.9) 06/19/19 07:25 RDW 15.0 % (11.9-15.9) 06/19/19 07:25 Plt Count 199 K/MM3 (134-434) 06/19/19 07:25 MPV 8.4 fl (7.5-11.1) 06/19/19 07:25 CMP Sodium 143 mmol/L (136-145) 06/19/19 07:25 Potassium 3.7 mmol/L (3.5-5.1) 06/19/19 07:25 Chloride 114 mmol/L (98-107) H 06/19/19 07:25 Carbon Dioxide 23 mmol/L (21-32) 06/19/19 07:25 Anion Gap 6 MMOL/L (8-16) L 06/19/19 07:25 BUN 12.5 mg/dL (7-18) 06/19/19 07:25 Creatinine 0.8 mg/dL (0.55-1.3) 06/19/19 07:25 Random Glucose 94 mg/dL (74-106) 06/19/19 07:25 Calcium 8.1 mg/dL (8.5-10.1) L 06/19/19 07:25 Total Bilirubin 0.7 mg/dL (0.2-1) 06/17/19 07:00 AST 12 U/L (15-37) L 06/17/19 07:00 ALT 14 U/L (13-61) 06/17/19 07:00 Alkaline Phosphatase 42 U/L (45-117) L 06/17/19 07:00 Total Protein 6.6 g/dl (6.4-8.2) 06/17/19 07:00 Albumin 3.2 g/dl (3.4-5.0) L 06/17/19 07:00 Current Medications Generic Name Dose Route Start Last Admin Trade Name Freq PRN Reason Stop Dose Admin Albuterol/Ipratropium 1 amp 06/15/19 10:43 06/15/19 12:30 Duoneb - NEB 1 amp Q6H PRN Administration SHORTNESS OF BREATH Gabapentin 300 mg 06/17/19 22:00 06/18/19 21:49 Neurontin - PO 300 mg HS EMILY Administration Heparin Sodium (Porcine) 5,000 unit 06/16/19 14:00 06/19/19 14:03 Heparin - SQ Not Given TID EMILY Dextrose/Sodium Chloride 1,000 mls @ 75 mls/hr 06/16/19 11:05 06/19/19 10:41 D5-Ns - IV 75 mls/hr ASDIR EMILY Administration Lidocaine 1 patch 06/19/19 10:00 06/19/19 10:35 Lidoderm Patch - TP Not Given DAILY EMILY Miscellaneous 1 each 06/19/19 22:00 Lidoderm Patch Removal MC DAILY@2200 EMILY Oxycodone HCl 5 mg 06/17/19 18:15 06/19/19 20:26 Roxicodone - PO 5 mg Q6H PRN Administration PAIN LEVEL 7 - 10 Prochlorperazine Edisylate 10 mg 06/15/19 10:50 Compazine Injection - IVPB Q4H PRN NAUSEA AND/OR VOMITING Fluticasone/Salmeterol 1 puff 06/15/19 10:00 06/19/19 10:34 Advair 100mcg/50mcg - IH 1 puff BID EMILY Administration Trazodone HCl 50 mg 06/17/19 18:15 06/18/19 21:49 Desyrel - PO 50 mg HS PRN Administration INSOMNIA Home Medications Medication Instructions Recorded Ipratropium/Albuterol Sulfate 4 gm IH BID 10/13/17 [Combivent Respimat 20-100 Mcg] Fluticasone/Salmeterol [Advair 1 each IH BID 06/15/19 250-50 Diskus] Gabapentin [Neurontin] 300 mg PO HS 06/15/19 Megestrol Acetate Oral Susp 400 mg PO BID 06/15/19 [Megace Oral Suspension -] Oxycodone HCl 10 mg PO BID PRN 06/15/19 Tizanidine HCl 2 mg PO BID PRN 06/15/19 traZODone HCL [Trazodone HCl] 50 mg PO HS PRN 06/15/19 Microbiology 06/15/19 05:08 Urine - Urine Clean Catch Urine Culture - Final NO GROWTH OBTAINED ASSESSMENT AND PLAN: Patient is a 68yom with PMhx of COPD, not on O2 , s/p appendectomy, untreated hepatitis C, recurrent SBO with last ex-lap with lysis of adhesions on 10/22 , who presented with Abdominal pain with N/V and was found to have Acute SBO. # Acute SBO: likely due to adhesions. continues to improve , passing flatus s/p NGT , tolerating diet now, advance diet as tolerated # H/o COPD: cont nebs and inhalers . # h/o lower back pain: Resume neurontin DVT PX: SCDs . SQ heparin possible dc in am if stable
[2019-06-19] MEDS: LIDOCAINE PATCH REMOVAL MC SCH (21:38)
[2019-06-19] MEDS: GABAPENTIN 300 MG CAPSULE PO SCH (21:39)
[2019-06-19] MEDS: traZODone HCL 50 MG TABLET (FP) PO PRN (21:41)
[2019-06-20] MEDS: HEPARIN NA (PORCINE) 5,000 UNITS/ML 1ML VIAL SQ SCH ×3 (05:53→21:05)
[2019-06-20] MEDS: LIDOCAINE 5% TOPICAL PATCH TP SCH (09:43)
[2019-06-20] MEDS: FLUTICASONE/SALMETEROL 100 MCG/50 MCG DISKUS IH SCH ×2 (09:45→21:08)
[2019-06-20] MEDS ORDERED: PANTOPRAZOLE SODIUM 40 MG VIAL IVPUSH ONE (10:41)
--- NOTE | 2019-06-20 12:19 | EKG ---
Test Reason : Blood Pressure : / mmHG Vent. Rate : 071 BPM Atrial Rate : 071 BPM P-R Int : 146 ms QRS Dur : 072 ms QT Int : 370 ms P-R-T Axes : 074 080 082 degrees QTc Int : 402 ms NORMAL SINUS RHYTHM NONSPECIFIC T WAVE ABNORMALITY Confirmed by JACKY KENNEDY MD ([id number]) on 06/20/2019 12:19:06 PM Referred By: Confirmed By:JACKY KENNEDY MD
--- NOTE | 2019-06-20 12:21 | PN ---
Progress Note (short form) - Note Progress Note: GENERAL SURGERY We were initially consulted on 06/15/19 for SBO. Surgery Team followed patient through his hospital admission until his bowel function resumed. He was started back on a diet and tolerated. Surgery signed off the case and asked to be re-consulted PRN. This morning, was aked by Medicine to see patient again as he started vomiting again. RN states he vomited ~ 50mL (nbnb) emesis this morning. AXR 06/20/19: retained stool content greatly diminished. Gastric distension diminished. Some air distended loops of SB in the RLQ/pelvis. Possible PSBO. No free air or pneumotosis Currently supine in bed. States he doesn't want the NGT replaced. Passing flatus. Per patient had small bm (formed) last night. Denies nausea Last Vital Signs Temp Pulse Resp BP Pulse Ox 98 F 78 18 131/84 99 06/20/19 08:00 06/20/19 08:00 06/20/19 08:00 06/20/19 08:00 06/20/19 10:00 CBC, BMP 06/19/19 07:25 06/19/19 07:25 INR, PTT INR 1.17 (0.83-1.09) H 06/15/19 08:08 PE GEN: a&o, nad ABD: hypoactive bowel sounds. mild rlq ttp. no rebound/guarding/rigidity. LE: 2+ pulses, warm, well-perfused, no edema. Problem List - Problems (1) Small bowel obstruction Assessment/Plan: 68 yo male with h/o recurrent SBO. PSHx ex-lap x3. Admitted to [facility] with abd pain n/v. Patient had PSBO/SBO identiifed on AXRs & CT scan. It had resolved with onservative measures. Patient was set for discharge today when his n/v resumed. ABD XR possible PSBO. - Resume NPO - IVF fluid - replete elytes PRN - GI PPx - DVT PPx - Discussed with patient the need for reinsertion of NGT if his vomiting continues -- REFUSED - Discussed with patient that he may need an exploratory laparotomy if he fails to progress and conservative measures cease to produce results. - Surgery Team will cont follow - Serial ABD exams - Coags - Type and screen - Medical optimization Above plan discussed with Dr. Moseley and agrees Code(s): K56.69 - OTHER INTESTINAL OBSTRUCTION * DO NOT USE * (2) COPD exacerbation Code(s): J44.1 - CHRONIC OBSTRUCTIVE PULMONARY DISEASE W (ACUTE) EXACERBATION (3) Cachexia Code(s): R64 - CACHEXIA (4) Hepatitis C, chronic Code(s): B18.2 - CHRONIC VIRAL HEPATITIS C
[2019-06-20] MEDS: DEXTROSE 5%-NORMAL SALINE 1,000 ML IV SCH ×2 (14:34→16:16)
[2019-06-20] MEDS ORDERED: MORPHINE SULFATE 2 MG/ML VIAL IVPUSH SCH (18:30)
--- NOTE | 2019-06-20 20:08 | PN ---
Teaching Attending Note Name of Resident: Monica Fernández ATTENDING PHYSICIAN STATEMENT I saw and evaluated the patient. I reviewed the resident's note and discussed the case with the resident. I agree with the resident's findings and plan as documented. SUBJECTIVE: Patient is comfortable, started to vomit again. Vital Signs Temperature 99.2 F 06/20/19 14:31 Pulse Rate 69 06/20/19 14:31 Respiratory Rate 20 06/20/19 14:31 Blood Pressure 129/77 06/20/19 14:31 O2 Sat by Pulse Oximetry (%) 99 06/20/19 10:00 GENERAL: The patient is awake, alert, and fully oriented, in no acute distress. HEAD: Normal with no signs of trauma. EYES: PERRL, extraocular movements intact, sclera anicteric, conjunctiva clear. ENT: Ears normal, oropharynx clear without exudates, moist mucous membranes. NECK: Trachea midline, full range of motion, supple. LUNGS: Breath sounds equal, clear to auscultation bilaterally, no wheezes, no crackles, no accessory muscle use. HEART: Regular rate and rhythm, S1, S2 without murmur, rub or gallop. ABDOMEN: Soft, nontender, nondistended, normoactive bowel sounds, no guarding, no rebound, no hepatosplenomegaly, no masses. EXTREMITIES: 2+ pulses, warm, well-perfused, no edema. NEUROLOGICAL: Cranial nerves II through XII grossly intact. Normal speech, gait not observed. PSYCH: Normal mood, normal affect. SKIN: Warm, dry, normal turgor, no rashes or lesions noted CBCD WBC 7.6 K/mm3 (4.0-10.0) 06/19/19 07:25 RBC 3.94 M/mm3 (4.00-5.60) L 06/19/19 07:25 Hgb 10.9 GM/dL (11.7-16.9) L 06/19/19 07:25 Hct 32.5 % (35.4-49) L 06/19/19 07:25 MCV 82.5 fl (80-96) 06/19/19 07:25 MCHC 33.4 g/dl (32.0-35.9) 06/19/19 07:25 RDW 15.0 % (11.9-15.9) 06/19/19 07:25 Plt Count 199 K/MM3 (134-434) 06/19/19 07:25 MPV 8.4 fl (7.5-11.1) 06/19/19 07:25 CMP Sodium 143 mmol/L (136-145) 06/19/19 07:25 Potassium 3.7 mmol/L (3.5-5.1) 06/19/19 07:25 Chloride 114 mmol/L (98-107) H 06/19/19 07:25 Carbon Dioxide 23 mmol/L (21-32) 06/19/19 07:25 Anion Gap 6 MMOL/L (8-16) L 06/19/19 07:25 BUN 12.5 mg/dL (7-18) 06/19/19 07:25 Creatinine 0.8 mg/dL (0.55-1.3) 06/19/19 07:25 Random Glucose 94 mg/dL (74-106) 06/19/19 07:25 Calcium 8.1 mg/dL (8.5-10.1) L 06/19/19 07:25 Total Bilirubin 0.7 mg/dL (0.2-1) 06/17/19 07:00 AST 12 U/L (15-37) L 06/17/19 07:00 ALT 14 U/L (13-61) 06/17/19 07:00 Alkaline Phosphatase 42 U/L (45-117) L 06/17/19 07:00 Total Protein 6.6 g/dl (6.4-8.2) 06/17/19 07:00 Albumin 3.2 g/dl (3.4-5.0) L 06/17/19 07:00 CARDIAC ENZYMES Creatine Kinase 51 U/L (26-308) 06/20/19 11:06 Troponin I < 0.02 ng/ml (0.00-0.05) 06/20/19 11:06 Current Medications Generic Name Dose Route Start Last Admin Trade Name Westleyq PRN Reason Stop Dose Admin Gabapentin 300 mg 06/17/19 22:00 06/19/19 21:39 Neurontin - PO Not Given HS EMILY Heparin Sodium (Porcine) 5,000 unit 06/16/19 14:00 06/20/19 14:33 Heparin - SQ 5,000 unit TID EMILY Administration Dextrose/Sodium Chloride 1,000 mls @ 75 mls/hr 06/16/19 11:05 06/20/19 16:16 D5-Ns - IV 75 mls/hr ASDIR EMILY Administration Lidocaine 1 patch 06/19/19 10:00 06/20/19 09:43 Lidoderm Patch - TP 1 patch DAILY EMILY Administration Miscellaneous 1 each 06/19/19 22:00 06/19/19 21:38 Lidoderm Patch Removal MC Not Given DAILY@2200 EMILY Morphine Sulfate 2 mg 06/20/19 19:02 Morphine Sulfate IVPUSH Q6H PRN PAIN LEVEL 7 - 10 Prochlorperazine Edisylate 10 mg 06/15/19 10:50 06/20/19 04:24 Compazine Injection - IVPB 10 mg Q4H PRN Administration NAUSEA AND/OR VOMITING Fluticasone/Salmeterol 1 puff 06/15/19 10:00 06/20/19 09:45 Advair 100mcg/50mcg - IH 1 puff BID EMILY Administration Trazodone HCl 50 mg 06/17/19 18:15 06/19/19 21:41 Desyrel - PO 50 mg HS PRN Administration INSOMNIA Home Medications Medication Instructions Recorded Ipratropium/Albuterol Sulfate 4 gm IH BID 10/13/17 [Combivent Respimat 20-100 Mcg] Fluticasone/Salmeterol [Advair 1 each IH BID 06/15/19 250-50 Diskus] Gabapentin [Neurontin] 300 mg PO HS 06/15/19 Megestrol Acetate Oral Susp 400 mg PO BID 06/15/19 [Megace Liquid -] Oxycodone HCl 10 mg PO BID PRN 06/15/19 Tizanidine HCl 2 mg PO BID PRN 06/15/19 traZODone HCL [Trazodone HCl] 50 mg PO HS PRN 06/15/19 Microbiology 06/15/19 05:08 Urine - Urine Clean Catch Urine Culture - Final NO GROWTH OBTAINED ASSESSMENT AND PLAN: Patient is a 68yom with PMhx of COPD, not on O2 , s/p appendectomy, untreated hepatitis C, recurrent SBO with last ex-lap with lysis of adhesions on 10/22 , who presented with Abdominal pain with N/V and was found to have Acute SBO. # s/p Acute SBO likely due to adhesions # partial SBO today, patient refusing NG-tube, will continue to monitor , nPO, discussed with surgery. # H/o COPD: cont nebs and inhalers . # h/o lower back pain: Resume neurontin DVT PX: SCDs . SQ heparin
[2019-06-20] MEDS: GABAPENTIN 300 MG CAPSULE PO SCH ×2 (21:05→21:15)
[2019-06-20] MEDS: traZODone HCL 50 MG TABLET (FP) PO PRN (21:05)
[2019-06-20] MEDS: MORPHINE SULFATE 2 MG/ML VIAL IVPUSH PRN (21:06)
[2019-06-20] MEDS: LIDOCAINE PATCH REMOVAL MC SCH (21:09)
[2019-06-21] MEDS: DEXTROSE 5%-NORMAL SALINE 1,000 ML IV SCH ×2 (06:15→12:42)
[2019-06-21] MEDS: HEPARIN NA (PORCINE) 5,000 UNITS/ML 1ML VIAL SQ SCH ×3 (06:16→21:25)
[2019-06-21 07:41] LABS: EOS % 2.3 % (0-4.5); HEMATOCRIT 33.1 % (35.4-49); HEMOGLOBIN 10.9 GM/dL (11.7-16.9); LYMPH % 22.4 % (8-40); MCH 27.3 pg (25.7-33.7); MCHC 32.8 g/dl (32.0-35.9); MEAN CELL VOLUME 83.2 fl (80-96); MEAN PLT VOLUME 8.3 fl (7.5-11.1); MONO % 6.3 % (3.8-10.2); PLATELET COUNT 190 K/MM3 (134-434); RBC 3.98 M/mm3 (4.00-5.60); RDW 14.9 % (11.9-15.9); WHITE BLOOD COUNT 8.6 K/mm3 (4.0-10.0)
[2019-06-21 08:11] LABS: ALBUMIN 2.6 g/dl (3.4-5.0); BILIRUBIN,TOTAL 0.4 mg/dL (0.2-1); BLOOD UREA NITROGEN 6.1 mg/dL (7-18); CALCIUM 8.1 mg/dL (8.5-10.1); CREATININE 0.9 mg/dL (0.55-1.3); MAGNESIUM 1.9 mg/dL (1.8-2.4); POTASSIUM 4.1 mmol/L (3.5-5.1); TOT PROT 5.8 g/dl (6.4-8.2)
[2019-06-21] MEDS: MORPHINE SULFATE 2 MG/ML VIAL IVPUSH PRN ×4 (08:12→22:24)
[2019-06-21] MEDS: LIDOCAINE 5% TOPICAL PATCH TP SCH (09:44)
[2019-06-21] MEDS: FLUTICASONE/SALMETEROL 100 MCG/50 MCG DISKUS IH SCH ×2 (09:44→21:31)
--- NOTE | 2019-06-21 14:34 | PN ---
Progress Note (short form) - Note Progress Note: Patient is unable to tolerate oral feed since started to throw up again. less flatus than before Vital Signs Temperature 98.1 F 06/21/19 14:02 Pulse Rate 66 06/21/19 08:38 Respiratory Rate 16 06/21/19 08:38 Blood Pressure 109/54 L 06/21/19 08:38 O2 Sat by Pulse Oximetry (%) 100 06/21/19 08:23 GENERAL: The patient is awake, alert, and fully oriented, in no acute distress. HEAD: Normal with no signs of trauma. EYES: PERRL, extraocular movements intact, sclera anicteric, conjunctiva clear. ENT: Ears normal, oropharynx clear without exudates, moist mucous membranes. NECK: Trachea midline, full range of motion, supple. LUNGS: Breath sounds equal, clear to auscultation bilaterally, no wheezes, no crackles, no accessory muscle use. HEART: Regular rate and rhythm, S1, S2 without murmur, rub or gallop. ABDOMEN: Soft, nontender, nondistended, normoactive bowel sounds, no guarding, no rebound, no hepatosplenomegaly, no masses. EXTREMITIES: 2+ pulses, warm, well-perfused, no edema. NEUROLOGICAL: Cranial nerves II through XII grossly intact. Normal speech, gait not observed. PSYCH: Normal mood, normal affect. SKIN: Warm, dry, normal turgor, no rashes or lesions noted CBCD WBC 8.6 K/mm3 (4.0-10.0) 06/21/19 07:28 RBC 3.98 M/mm3 (4.00-5.60) L 06/21/19 07:28 Hgb 10.9 GM/dL (11.7-16.9) L 06/21/19 07:28 Hct 33.1 % (35.4-49) L 06/21/19 07:28 MCV 83.2 fl (80-96) 06/21/19 07:28 MCHC 32.8 g/dl (32.0-35.9) 06/21/19 07:28 RDW 14.9 % (11.9-15.9) 06/21/19 07:28 Plt Count 190 K/MM3 (134-434) 06/21/19 07:28 MPV 8.3 fl (7.5-11.1) 06/21/19 07:28 CMP Sodium 142 mmol/L (136-145) 06/21/19 07:28 Potassium 4.1 mmol/L (3.5-5.1) 06/21/19 07:28 Chloride 115 mmol/L (98-107) H 06/21/19 07:28 Carbon Dioxide 22 mmol/L (21-32) 06/21/19 07:28 Anion Gap 5 MMOL/L (8-16) L 06/21/19 07:28 BUN 6.1 mg/dL (7-18) L 06/21/19 07:28 Creatinine 0.9 mg/dL (0.55-1.3) 06/21/19 07:28 Random Glucose 97 mg/dL (74-106) 06/21/19 07:28 Calcium 8.1 mg/dL (8.5-10.1) L 06/21/19 07:28 Total Bilirubin 0.4 mg/dL (0.2-1) 06/21/19 07:28 AST 10 U/L (15-37) L 06/21/19 07:28 ALT 15 U/L (13-61) 06/21/19 07:28 Alkaline Phosphatase 40 U/L (45-117) L 06/21/19 07:28 Total Protein 5.8 g/dl (6.4-8.2) L 06/21/19 07:28 Albumin 2.6 g/dl (3.4-5.0) L 06/21/19 07:28 CARDIAC ENZYMES Creatine Kinase 51 U/L (26-308) 06/20/19 11:06 Troponin I < 0.02 ng/ml (0.00-0.05) 06/20/19 11:06 Current Medications Generic Name Dose Route Start Last Admin Trade Name Freq PRN Reason Stop Dose Admin Gabapentin 300 mg 06/17/19 22:00 06/20/19 21:15 Neurontin - PO Not Given HS EMILY Heparin Sodium (Porcine) 5,000 unit 06/16/19 14:00 06/21/19 13:50 Heparin - SQ 5,000 unit TID EMILY Administration Dextrose/Sodium Chloride 1,000 mls @ 75 mls/hr 06/16/19 11:05 06/21/19 12:42 D5-Ns - IV Not Given ASDIR EMILY Lidocaine 1 patch 06/19/19 10:00 06/21/19 09:44 Lidoderm Patch - TP 1 patch DAILY EMILY Administration Miscellaneous 1 each 06/19/19 22:00 06/20/19 21:09 Lidoderm Patch Removal MC 1 each DAILY@2200 EMILY Administration Morphine Sulfate 2 mg 06/20/19 19:02 06/21/19 13:48 Morphine Sulfate IVPUSH 2 mg Q6H PRN Administration PAIN LEVEL 7 - 10 Prochlorperazine Edisylate 10 mg 06/15/19 10:50 06/20/19 04:24 Compazine Injection - IVPB 10 mg Q4H PRN Administration NAUSEA AND/OR VOMITING Fluticasone/Salmeterol 1 puff 06/15/19 10:00 06/21/19 09:44 Advair 100mcg/50mcg - IH 1 puff BID EMILY Administration Trazodone HCl 50 mg 06/17/19 18:15 06/20/19 21:05 Desyrel - PO 50 mg HS PRN Administration INSOMNIA Home Medications Medication Instructions Recorded Ipratropium/Albuterol Sulfate 4 gm IH BID 10/13/17 [Combivent Respimat 20-100 Mcg] Fluticasone/Salmeterol [Advair 1 each IH BID 06/15/19 250-50 Diskus] Gabapentin [Neurontin] 300 mg PO HS 06/15/19 Megestrol Acetate Oral Susp 400 mg PO BID 06/15/19 [Megace Liquid -] Oxycodone HCl 10 mg PO BID PRN 06/15/19 Tizanidine HCl 2 mg PO BID PRN 06/15/19 traZODone HCL [Trazodone HCl] 50 mg PO HS PRN 06/15/19 Microbiology 06/15/19 05:08 Urine - Urine Clean Catch Urine Culture - Final NO GROWTH OBTAINED ASSESSMENT AND PLAN: Patient is a 68yom with PMhx of COPD, not on O2 , s/p appendectomy, untreated hepatitis C, recurrent SBO with last ex-lap with lysis of adhesions on 10/22 , who presented with Abdominal pain with N/V and was found to have Acute SBO. # s/p Acute SBO likely due to adhesions, resolved but post feeding patient started to develop vomiting again ,feeding is on hold again and Abdominal xray showing partial bowel obstruction. On Periperal AA now , patient refusing the NGtube , patient had a SBo sx for 3 times in the past and appendectomy with lysis of adhesions. NPO for now # partial SBO today, patient refusing NG-tube, will continue to monitor , nPO, discussed with surgery. # H/o COPD: cont nebs and inhalers . # h/o lower back pain: Resume neurontin DVT PX: SCDs . SQ heparin Visit type - Emergency Visit Emergency Visit: Yes ED Registration Date: 06/15/19 Care time: The patient presented to the Emergency Department on the above date and was hospitalized for further evaluation of their emergent condition. - New Patient This patient is new to me today: No - Critical Care Critical Care patient: No - Discharge Referral Referred to [facility] Med P.C.: No
[2019-06-21] MEDS ORDERED: AMINO ACIDS 4.25%/D5W 1,000 ML IV SCH (20:15)
[2019-06-21] MEDS: traZODone HCL 50 MG TABLET (FP) PO PRN (21:25)
[2019-06-21] MEDS: LIDOCAINE PATCH REMOVAL MC SCH (21:31)
[2019-06-21] MEDS: GABAPENTIN 300 MG CAPSULE PO SCH (22:09)
[2019-06-22] MEDS: HEPARIN NA (PORCINE) 5,000 UNITS/ML 1ML VIAL SQ SCH ×3 (05:24→22:52)
[2019-06-22] MEDS: FLUTICASONE/SALMETEROL 100 MCG/50 MCG DISKUS IH SCH ×2 (09:35→22:56)
[2019-06-22] MEDS: LIDOCAINE 5% TOPICAL PATCH TP SCH ×2 (09:35→09:37)
--- NOTE | 2019-06-22 09:45 | PN ---
Physical Exam: SUBJECTIVE: Patient seen and examined. Pt, endorses improvement in abdominal pain, but denies passing gas or stool overnight. Pt. was started on Clinimix. Pt. denies any acute complaints. No acute episodes of vomiting overnight. OBJECTIVE: Vital Signs Period Temp Pulse Resp BP Sys/Monsalve Pulse Ox Last 24 Hr 98 F-98.7 F 62-66 17-18 105-123/65-76 98 GENERAL: The patient is awake, alert, and fully oriented, in no acute distress. HEAD: Normal with no signs of trauma. EYES: Sclera anicteric, conjunctiva clear. No ptosis. ENT: Dry mucous membranes. NECK: Trachea midline, full range of motion, supple. LUNGS: Breath sounds equal, clear to auscultation bilaterally, no wheezes, no crackles, no accessory muscle use. HEART: Regular rate and rhythm, S1, S2 without murmur ABDOMEN: Soft, mild diffuse tenderness, nondistended, normoactive bowel sounds, no guarding, no rebound, EXTREMITIES: 2+ dorsal pedal pulses, warm, well-perfused, no edema. NEUROLOGICAL: No focal deficits appreciated PSYCH: Normal mood, normal affect. SKIN: Warm, dry, normal turgor Active Medications Home Medications Medication Instructions Recorded Ipratropium/Albuterol Sulfate 4 gm IH BID 10/13/17 [Combivent Respimat 20-100 Mcg] Fluticasone/Salmeterol [Advair 1 each IH BID 06/15/19 250-50 Diskus] Gabapentin [Neurontin] 300 mg PO HS 06/15/19 Megestrol Acetate Oral Susp 400 mg PO BID 06/15/19 [Megace Oral Suspension -] Oxycodone HCl 10 mg PO BID PRN 06/15/19 Tizanidine HCl 2 mg PO BID PRN 06/15/19 traZODone HCL [Trazodone HCl] 50 mg PO HS PRN 06/15/19 Current Medications Gabapentin (Neurontin -) 300 mg PO HS [facility] Last Admin: 06/21/19 22:09 Dose: Not Given Heparin Sodium (Porcine) (Heparin -) 5,000 unit SQ TID [facility] Last Admin: 06/22/19 05:24 Dose: 5,000 unit Lidocaine (Lidoderm Patch -) 1 patch TP DAILY [facility] Last Admin: 06/22/19 09:37 Dose: Not Given Miscellaneous (Lidoderm Patch Removal) 1 each MC DAILY@2200 [facility]ILY Last Admin: 06/21/19 21:31 Dose: 1 each Morphine Sulfate (Morphine Sulfate) 2 mg IVPUSH Q4H PRN PRN Reason: PAIN LEVEL 7 - 10 Last Admin: 06/21/19 22:24 Dose: 2 mg Prochlorperazine Edisylate (Compazine Injection -) 10 mg IVPB Q4H PRN PRN Reason: NAUSEA AND/OR VOMITING Last Admin: 06/20/19 04:24 Dose: 10 mg Fluticasone/Salmeterol (Advair 100mcg/50mcg -) 1 puff IH BID [facility]ILY Last Admin: 06/22/19 09:35 Dose: 1 puff Trazodone HCl (Desyrel -) 50 mg PO HS PRN PRN Reason: INSOMNIA Last Admin: 06/21/19 21:25 Dose: 50 mg ASSESSMENT/PLAN: Pt. is a 68 y.o. M w/ PMhx. of COPD(not on O2), s/p appendectomy, untreated hepatitis C, recurrent SBO (Ex Lap x 2, last in 2018), and perforated bowel during colonoscopy(s/p Ex Lap(2012) who presented with Abdominal pain with N/V and was found to have Acute SBO. # s/p Acute SBO likely due to adhesions partial SBO today, patient refusing NG-tube, will continue to monitor , NPO, discussed with surgery, KUB (Flat and Upright read as Partial SBO, with prominent air filled colonic bowel. (No air fluid level appreciated per my read) . c/w Compazine for vomiting. # H/o COPD: cont nebs and inhalers # Insomnia : c/w Trazodone 50mg HS # h/o lower back pain: Resume neurontin DVT PX: SCDs . SQ heparin Visit type - Emergency Visit Emergency Visit: Yes ED Registration Date: 06/15/19 Care time: The patient presented to the Emergency Department on the above date and was hospitalized for further evaluation of their emergent condition. - New Patient This patient is new to me today: No - Critical Care Critical Care patient: No - Discharge Referral Referred to [facility] Med P.C.: No ATTENDING PHYSICIAN STATEMENT I saw and evaluated the patient. I reviewed the resident's note and discussed the case with the resident. I agree with the resident's findings and plan as documented. SUBJECTIVE: OBJECTIVE: ASSESSMENT AND PLAN:
[2019-06-22] MEDS: MORPHINE SULFATE 2 MG/ML VIAL IVPUSH PRN ×2 (11:45→17:22)
[2019-06-22] MEDS: AMINO ACIDS 4.25%/D5W 1,000 ML IV SCH (17:17)
--- NOTE | 2019-06-22 18:40 | PN ---
Teaching Attending Note Name of Resident: Ajit Fernando ATTENDING PHYSICIAN STATEMENT I saw and evaluated the patient. I reviewed the resident's note and discussed the case with the resident. I agree with the resident's findings and plan as documented. SUBJECTIVE: Patient feels better now, does not feel hungry. Vital Signs Temperature 99.0 F 06/22/19 17:27 Pulse Rate 62 06/22/19 17:27 Respiratory Rate 20 06/22/19 17:27 Blood Pressure 118/75 06/22/19 17: O2 Sat by Pulse Oximetry (%) 97 06/22/19 09:00 GENERAL: The patient is awake, alert, and fully oriented, in no acute distress. HEAD: Normal with no signs of trauma. EYES: PERRL, extraocular movements intact, sclera anicteric, conjunctiva clear. ENT: Ears normal, oropharynx clear without exudates, moist mucous membranes. NECK: Trachea midline, full range of motion, supple. LUNGS: Breath sounds equal, clear to auscultation bilaterally, no wheezes, no crackles, no accessory muscle use. HEART: Regular rate and rhythm, S1, S2 without murmur, rub or gallop. ABDOMEN: Soft, nontender, nondistended, normoactive bowel sounds, no guarding, no rebound, no hepatosplenomegaly, no masses. EXTREMITIES: 2+ pulses, warm, well-perfused, no edema. NEUROLOGICAL: Cranial nerves II through XII grossly intact. Normal speech, gait not observed. PSYCH: Normal mood, normal affect. SKIN: Warm, dry, normal turgor, no rashes or lesions noted CBCD WBC 8.6 K/mm3 (4.0-10.0) 06/21/19 07:28 RBC 3.98 M/mm3 (4.00-5.60) L 06/21/19 07:28 Hgb 10.9 GM/dL (11.7-16.9) L 06/21/19 07:28 Hct 33.1 % (35.4-49) L 06/21/19 07:28 MCV 83.2 fl (80-96) 06/21/19 07:28 MCHC 32.8 g/dl (32.0-35.9) 06/21/19 07:28 RDW 14.9 % (11.9-15.9) 06/21/19 07:28 Plt Count 190 K/MM3 (134-434) 06/21/19 07:28 MPV 8.3 fl (7.5-11.1) 06/21/19 07:28 CMP Sodium 142 mmol/L (136-145) 06/21/19 07:28 Potassium 4.1 mmol/L (3.5-5.1) 06/21/19 07:28 Chloride 115 mmol/L (98-107) H 06/21/19 07:28 Carbon Dioxide 22 mmol/L (21-32) 06/21/19 07:28 Anion Gap 5 MMOL/L (8-16) L 06/21/19 07:28 BUN 6.1 mg/dL (7-18) L 06/21/19 07:28 Creatinine 0.9 mg/dL (0.55-1.3) 06/21/19 07:28 Random Glucose 97 mg/dL (74-106) 06/21/19 07:28 Calcium 8.1 mg/dL (8.5-10.1) L 06/21/19 07:28 Total Bilirubin 0.4 mg/dL (0.2-1) 06/21/19 07:28 AST 10 U/L (15-37) L 06/21/19 07:28 ALT 15 U/L (13-61) 06/21/19 07:28 Alkaline Phosphatase 40 U/L (45-117) L 06/21/19 07:28 Total Protein 5.8 g/dl (6.4-8.2) L 06/21/19 07:28 Albumin 2.6 g/dl (3.4-5.0) L 06/21/19 07:28 CARDIAC ENZYMES Creatine Kinase 51 U/L (26-308) 06/20/19 11:06 Troponin I < 0.02 ng/ml (0.00-0.05) 06/20/19 11:06 Home Medications Medication Instructions Recorded Ipratropium/Albuterol Sulfate 4 gm IH BID 10/13/17 [Combivent Respimat 20-100 Mcg] Fluticasone/Salmeterol [Advair 1 each IH BID 06/15/19 250-50 Diskus] Gabapentin [Neurontin] 300 mg PO HS 06/15/19 Megestrol Acetate Oral Susp 400 mg PO BID 06/15/19 [Megace Liquid -] Oxycodone HCl 10 mg PO BID PRN 06/15/19 Tizanidine HCl 2 mg PO BID PRN 06/15/19 traZODone HCL [Trazodone HCl] 50 mg PO HS PRN 06/15/19 Current Medications Generic Name Dose Route Start Last Admin Trade Name Freq PRN Reason Stop Dose Admin Gabapentin 300 mg 06/17/19 22:00 06/21/19 22:09 Neurontin - PO Not Given HS EMILY Heparin Sodium (Porcine) 5,000 unit 06/16/19 14:00 06/22/19 14:12 Heparin - SQ 5,000 unit TID EMILY Administration Amino Acids 1,000 mls @ 84 mls/hr 06/22/19 15:15 06/22/19 17:17 Clinimix - IV 84 mls/hr Q12H EMILY Administration Lidocaine 1 patch 06/19/19 10:00 06/22/19 09:37 Lidoderm Patch - TP Not Given DAILY EMILY Miscellaneous 1 each 06/19/19 22:00 06/21/19 21:31 Lidoderm Patch Removal MC 1 each DAILY@2200 EMILY Administration Morphine Sulfate 2 mg 06/21/19 17:23 06/22/19 17:22 Morphine Sulfate IVPUSH 2 mg Q4H PRN Administration PAIN LEVEL 7 - 10 Prochlorperazine Edisylate 10 mg 06/15/19 10:50 06/20/19 04:24 Compazine Injection - IVPB 10 mg Q4H PRN Administration NAUSEA AND/OR VOMITING Fluticasone/Salmeterol 1 puff 06/15/19 10:00 06/22/19 09:35 Advair 100mcg/50mcg - IH 1 puff BID EMILY Administration Trazodone HCl 50 mg 06/17/19 18:15 06/21/19 21:25 Desyrel - PO 50 mg HS PRN Administration INSOMNIA Microbiology 06/15/19 05:08 Urine - Urine Clean Catch Urine Culture - Final NO GROWTH OBTAINED ABDOMINAL XRAY: PARTIAL BOWEL OBSTRUCTION ASSESSMENT AND PLAN: Patient is a 68yom with PMhx of COPD, not on O2 , s/p appendectomy, untreated hepatitis C, recurrent SBO with last ex-lap with lysis of adhesions on 10/22 , who presented with Abdominal pain with N/V and was found to have Acute SBO. # s/p Acute SBO likely due to adhesions, resolved but post feeding patient started to develop vomiting again ,feeding is on hold again and Abdominal xray showing partial bowel obstruction. On PPN now , patient refusing the NGtube , patient had a SBo surgery for 3 times in the past and appendectomy with lysis of adhesions. NPO for now # partial SBO today on abdominal xray, patient refusing NG-tube, will continue to monitor , nPO, discussed with surgery. continue PPN , will wait for surgical evaluation again and recommendations. # H/o COPD: cont nebs and inhalers . # h/o lower back pain: Resume neurontin DVT PX: SCDs . SQ heparin
[2019-06-22] MEDS: GABAPENTIN 300 MG CAPSULE PO SCH (22:50)
[2019-06-22] MEDS: LIDOCAINE PATCH REMOVAL MC SCH (22:56)
[2019-06-23] MEDS: AMINO ACIDS 4.25%/D5W 1,000 ML IV SCH ×2 (04:03→17:53)
[2019-06-23] MEDS: HEPARIN NA (PORCINE) 5,000 UNITS/ML 1ML VIAL SQ SCH ×3 (05:38→22:09)
[2019-06-23 07:34] LABS: BLOOD UREA NITROGEN 16.8 mg/dL (7-18); CALCIUM 8.6 mg/dL (8.5-10.1); CREATININE 0.8 mg/dL (0.55-1.3); PHOSPHOROUS 3.1 mg/dL (2.5-4.9)
--- NOTE | 2019-06-23 08:56 | PN ---
Progress Note (short form) - Note Progress Note: SURGERY 68yo M h/o recurrent SBO, which had resolved and then pt developed n/v on and made NPO again. Pt denies any further n/v since them. Pt states he is passing flatus. Denies abd pain, fever, chills. Last Vital Signs Temp Pulse Resp BP Pulse Ox 98.4 F 69 18 122/77 97 06/23/19 06:00 06/23/19 06:00 06/23/19 06:00 06/23/19 06:00 06/22/19 21:00 CBC, BMP 06/21/19 07:28 06/23/19 06:45 PE: Gen: A&O x3 Resp: breathing comfortably Abd: soft, nondistended, nontender Ext: no edema Problem List - Problems (1) Small bowel obstruction Assessment/Plan: Plan -pt clinically appears to have opened up, will follow up am abd xray, if looks ok will start on clears -GI/dvt ppx Pt discussed with Dr. Moseley who agrees. Code(s): K56.69 - OTHER INTESTINAL OBSTRUCTION * DO NOT USE *
[2019-06-23] MEDS: MORPHINE SULFATE 2 MG/ML VIAL IVPUSH PRN ×2 (09:23→15:35)
[2019-06-23] MEDS: FLUTICASONE/SALMETEROL 100 MCG/50 MCG DISKUS IH SCH ×2 (09:40→22:09)
[2019-06-23] MEDS: LIDOCAINE 5% TOPICAL PATCH TP SCH (09:40)
[2019-06-23] MEDS ORDERED: PT OWN MED DRAWER 7, Y5N ONE (09:51)
--- NOTE | 2019-06-23 11:38 | PN ---
Physical Exam: SUBJECTIVE: Patient seen and examined. He has no complaints. He denies abdominal pain, nausea. He says he feels hungry and is passing flatus. OBJECTIVE: Vital Signs Period Temp Pulse Resp BP Sys/Monsalve Pulse Ox Last 24 Hr 98.1 F-99.3 F 62-99 18-20 109-122/71-77 97 GENERAL: The patient is awake, alert, and fully oriented, in no acute distress. LUNGS: Breath sounds equal, clear to auscultation bilaterally, no wheezes, no crackles, no accessory muscle use. HEART: Regular rate and rhythm, S1, S2 without murmur, rub or gallop. ABDOMEN: Soft, nontender, nondistended, normoactive bowel sounds, no guarding, no rebound, no hepatosplenomegaly, no masses. EXTREMITIES: 2+ pulses, warm, well-perfused, no edema. Laboratory Results - last 24 hr 06/23/19 06:45 Sodium 139 Potassium 4.0 Chloride 108 H Carbon Dioxide 25 Anion Gap 6 L BUN 16.8 Creatinine 0.8 Est GFR (CKD-EPI)AfAm 104.90 Est GFR (CKD-EPI)NonAf 90.51 Random Glucose 94 Calcium 8.6 Phosphorus 3.1 Magnesium 2.0 Active Medications Generic Name Dose Route Start Last Admin Trade Name Freq PRN Reason Stop Dose Admin Gabapentin 300 mg 06/17/19 22:00 06/22/19 22:50 Neurontin - PO Not Given HS EMILY Heparin Sodium (Porcine) 5,000 unit 06/16/19 14:00 06/23/19 05:38 Heparin - SQ Not Given TID EMILY Amino Acids 1,000 mls @ 84 mls/hr 06/22/19 15:15 06/23/19 04:03 Clinimix - IV 84 mls/hr Q12H EMILY Administration Lidocaine 1 patch 06/19/19 10:00 06/22/19 09:37 Lidoderm Patch - TP Not Given DAILY EMILY Miscellaneous 1 each 06/19/19 22:00 06/22/19 22:56 Lidoderm Patch Removal MC Not Given DAILY@2200 EMILY Morphine Sulfate 2 mg 06/21/19 17:23 06/23/19 09:23 Morphine Sulfate IVPUSH 2 mg Q4H PRN Administration PAIN LEVEL 7 - 10 Prochlorperazine Edisylate 10 mg 06/15/19 10:50 06/20/19 04:24 Compazine Injection - IVPB 10 mg Q4H PRN Administration NAUSEA AND/OR VOMITING Fluticasone/Salmeterol 1 puff 06/15/19 10:00 06/22/19 22:56 Advair 100mcg/50mcg - IH Not Given BID EMILY Trazodone HCl 50 mg 06/17/19 18:15 06/21/19 21:25 Desyrel - PO 50 mg HS PRN Administration INSOMNIA ASSESSMENT/PLAN: This is a 68 year old man with a history of COPD, appendectomy, untreated hepatitis C, recurrent SBO, bowel perforation from colonoscopy who presented to the ED with abdominal pain, nausea, and vomiting. 1. SBO, recurrent, likely secondary to adhesions - Clinically improving - Clear liquids being started by surgery 2. COPD - Stable - Continue Advair 3. Insomnia - Continue Trazodone 4. Hepatitis C, untreated 5. Chronic low back pain - Continue Neurontin, Lidoderm patch 6. Severe malnutrition - Continue PPN until PO intake is adequate - Ensure Clear once tolerating PO Visit type - Emergency Visit Emergency Visit: Yes ED Registration Date: 06/15/19 Care time: The patient presented to the Emergency Department on the above date and was hospitalized for further evaluation of their emergent condition. - New Patient This patient is new to me today: Yes Date on this admission: 06/23/19 - Critical Care Critical Care patient: No - Discharge Referral Referred to [facility] Med P.C.: No
[2019-06-23] MEDS: LIDOCAINE PATCH REMOVAL MC SCH (22:09)
[2019-06-23] MEDS: GABAPENTIN 300 MG CAPSULE PO SCH (22:10)
[2019-06-24] MEDS: AMINO ACIDS 4.25%/D5W 1,000 ML IV SCH ×2 (03:48→15:48)
[2019-06-24] MEDS: HEPARIN NA (PORCINE) 5,000 UNITS/ML 1ML VIAL SQ SCH ×3 (06:07→21:39)
[2019-06-24] MEDS: MORPHINE SULFATE 2 MG/ML VIAL IVPUSH PRN ×2 (07:01→10:33)
[2019-06-24 07:31] LABS: HEMATOCRIT 36.1 % (35.4-49); HEMOGLOBIN 12.3 GM/dL (11.7-16.9); MCHC 34.1 g/dl (32.0-35.9); MEAN CELL VOLUME 82.2 fl (80-96); MEAN PLT VOLUME 8.2 fl (7.5-11.1); PLATELET COUNT 222 K/MM3 (134-434); RBC 4.39 M/mm3 (4.00-5.60); RDW 15.5 % (11.9-15.9); WHITE BLOOD COUNT 5.6 K/mm3 (4.0-10.0)
--- NOTE | 2019-06-24 07:38 | PN ---
Progress Note (short form) - Note Progress Note: SURGERY 68yo M h/o recurrent SBO, which had resolved and then pt developed n/v on and made NPO again. Pt denies any further n/v since them. Pt states he is passing flatus and tolerating his clears. He is feeling hungry. Patient Denies abd pain, fever, chills. Vital Signs Temp 97.9 F 06/24/19 06:00 Pulse 68 06/24/19 06:00 Resp 18 06/24/19 06:00 BP 110/72 06/24/19 06:00 Pulse Ox 99 06/23/19 21:00 Intake & Output 06/23/19 06/23/19 06/24/19 11:59 23:59 11:59 Intake Total 7692 552 6892 Output Total 500 900 Balance 508 -300 1008 Intake: IV 1008 1008 Saline Lock 1008 1008 Oral 600 Output: Urine 500 900 Void 500 900 Other: Voiding Method Urinal Urinal Bowel Movement No No PE: Gen: A&Ox3, NAD Resp: breathing comfortably Abd: soft, nondistended, nontender Ext: no edema Problem List - Problems (1) Small bowel obstruction Assessment/Plan: 68yo male with history of recurrent SBO, currently resolving. -Advance diet as tolerated -pt clinically appears to have opened up -GI/dvt ppx -Surgery to follow evaluation and plan discussed with Dr Moesley Code(s): K56.69 - OTHER INTESTINAL OBSTRUCTION * DO NOT USE *
[2019-06-24 08:16] LABS: BLOOD UREA NITROGEN 16.6 mg/dL (7-18); CREATININE 0.8 mg/dL (0.55-1.3)
[2019-06-24] MEDS ORDERED: PT OWN MED DRAWER 7, Y5N ONE (09:51)
[2019-06-24] MEDS: LIDOCAINE 5% TOPICAL PATCH TP SCH (10:32)
[2019-06-24] MEDS: FLUTICASONE/SALMETEROL 100 MCG/50 MCG DISKUS IH SCH ×2 (10:40→21:40)
--- NOTE | 2019-06-24 14:19 | PN ---
Physical Exam: SUBJECTIVE: Patient seen and examined at bedside. pt states he is feeling much better and had a BM last night. pt is tolerated clear liquid diet OBJECTIVE: Vital Signs Period Temp Pulse Resp BP Sys/Monsalve Pulse Ox Last 24 Hr 97.8 F-98.8 F 68-81 17-20 106-120/68-73 99-99 GENERAL: The patient is awake, alert, and fully oriented, in no acute distress. LUNGS: Breath sounds equal, clear to auscultation bilaterally, no wheezes, no crackles, no accessory muscle use. HEART: Regular rate and rhythm, S1, S2 without murmur, rub or gallop. ABDOMEN: Soft, nontender, nondistended, decreased bowel sounds, no guarding EXTREMITIES: 2+ pulses, warm, well-perfused, no edema. NEUROLOGICAL: Cranial nerves II through XII grossly intact. PSYCH: Normal mood, normal affect. SKIN: Warm, dry, normal turgor, no rashes or lesions noted Laboratory Results - last 24 hr 06/24/19 06/24/19 06:50 06:50 WBC 5.6 RBC 4.39 Hgb 12.3 Hct 36.1 MCV 82.2 MCH 28.0 MCHC 34.1 RDW 15.5 Plt Count 222 MPV 8.2 Sodium 138 Potassium 4.0 Chloride 109 H Carbon Dioxide 25 Anion Gap 5 L BUN 16.6 Creatinine 0.8 Est GFR (CKD-EPI)AfAm 104.90 Est GFR (CKD-EPI)NonAf 90.51 Random Glucose 105 Calcium 9.0 Iron 77 TIBC 245 L Iron Saturation 31 Unsaturated IBC 168 L Ferritin 166.7 Vitamin B12 379 Serum Folate 11 TSH 1.17 D Current Medications Gabapentin (Neurontin -) 300 mg PO HS [facility] Last Admin: 06/23/19 22:10 Dose: Not Given Heparin Sodium (Porcine) (Heparin -) 5,000 unit SQ TID [facility] Last Admin: 06/24/19 13:51 Dose: 5,000 unit Amino Acids (Clinimix -) 1,000 mls @ 84 mls/hr IV Q12H [facility] Last Admin: 06/24/19 03:48 Dose: 84 mls/hr Lidocaine (Lidoderm Patch -) 1 patch TP DAILY [facility] Last Admin: 06/24/19 10:32 Dose: Not Given Miscellaneous (Lidoderm Patch Removal) 1 each MC DAILY@2200 [facility] Last Admin: 06/23/19 22:09 Dose: Not Given Morphine Sulfate (Morphine Sulfate) 2 mg IVPUSH Q4H PRN PRN Reason: PAIN LEVEL 7 - 10 Last Admin: 06/24/19 10:33 Dose: 2 mg Prochlorperazine Edisylate (Compazine Injection -) 10 mg IVPB Q4H PRN PRN Reason: NAUSEA AND/OR VOMITING Last Admin: 06/20/19 04:24 Dose: 10 mg Fluticasone/Salmeterol (Advair 100mcg/50mcg -) 1 puff IH BID [facility]ILY Last Admin: 06/24/19 10:40 Dose: 1 puff Trazodone HCl (Desyrel -) 50 mg PO HS PRN PRN Reason: INSOMNIA Last Admin: 06/21/19 21:25 Dose: 50 mg ASSESSMENT/PLAN: 68 yo M PMH of COPD ( not on home O2) , Hep C ( unTx), recurrent SBO ( s/p ex lap 10/22) presented to [facility] with Abdominal pain, n/v. pt found to have SBO. Acute SBO - pt tolerated clear liquid diet, will advance as tolerated -Surg recs (Dr. Moseley)appreciated -compazine for nausea - gabapentin and oxycodon for pain . offered lidoderm pt doesnt want COPD - stable -c/w advair - incentive spirometry Hx of LBP - will resume neurotin and oxy -PT eval appreciated. Severe malnutrition - will give ensure DVT ppx: Heparin Dispo: Med/ Surg Visit type - Emergency Visit Emergency Visit: No - New Patient This patient is new to me today: No - Critical Care Critical Care patient: No - Discharge Referral Referred to [facility] Med P.C.: No ATTENDING PHYSICIAN STATEMENT I saw and evaluated the patient. I reviewed the resident's note and discussed the case with the resident. I agree with the resident's findings and plan as documented. SUBJECTIVE: OBJECTIVE: ASSESSMENT AND PLAN:
--- NOTE | 2019-06-24 16:47 | PN ---
Teaching Attending Note Name of Resident: Monica Fernández ATTENDING PHYSICIAN STATEMENT I saw and evaluated the patient. I reviewed the resident's note and discussed the case with the resident. I agree with the resident's findings and plan as documented. SUBJECTIVE: Patient has no complaints. He is tolerating clear liquids and had bowel movement last night. OBJECTIVE: Vital Signs Period Temp Pulse Resp BP Sys/Monsalve Pulse Ox Last 24 Hr 97.8 F-98.7 F 68-98 17-20 106-120/67-73 99-99 GENERAL: The patient is awake, alert, and fully oriented, in no acute distress. LUNGS: Breath sounds equal, clear to auscultation bilaterally, no wheezes, no crackles, no accessory muscle use. HEART: Regular rate and rhythm, S1, S2 without murmur, rub or gallop. ABDOMEN: Soft, nontender, nondistended, normoactive bowel sounds, no guarding, no rebound, no hepatosplenomegaly, no masses. EXTREMITIES: 2+ pulses, warm, well-perfused, no edema. Laboratory Results - last 24 hr 06/24/19 06/24/19 06:50 06:50 WBC 5.6 RBC 4.39 Hgb 12.3 Hct 36.1 MCV 82.2 MCH 28.0 MCHC 34.1 RDW 15.5 Plt Count 222 MPV 8.2 Sodium 138 Potassium 4.0 Chloride 109 H Carbon Dioxide 25 Anion Gap 5 L BUN 16.6 Creatinine 0.8 Est GFR (CKD-EPI)AfAm 104.90 Est GFR (CKD-EPI)NonAf 90.51 Random Glucose 105 Calcium 9.0 Iron 77 TIBC 245 L Iron Saturation 31 Unsaturated IBC 168 L Ferritin 166.7 Vitamin B12 379 Serum Folate 11 TSH 1.17 D Current Medications Generic Name Dose Route Start Last Admin Trade Name Freq PRN Reason Stop Dose Admin Gabapentin 300 mg 06/17/19 22:00 06/23/19 22:10 Neurontin - PO Not Given HS EMILY Heparin Sodium (Porcine) 5,000 unit 06/16/19 14:00 06/24/19 13:51 Heparin - SQ 5,000 unit TID EMILY Administration Amino Acids 1,000 mls @ 84 mls/hr 06/22/19 15:15 06/24/19 15:48 Clinimix - IV 84 mls/hr Q12H EMILY Administration Lidocaine 1 patch 06/19/19 10:00 06/24/19 10:32 Lidoderm Patch - TP Not Given DAILY EMILY Miscellaneous 1 each 06/19/19 22:00 06/23/19 22:09 Lidoderm Patch Removal MC Not Given DAILY@2200 EMILY Oxycodone HCl 5 mg 06/24/19 15:57 Roxicodone - PO Q6H PRN PAIN LEVEL 7 - 10 Prochlorperazine Edisylate 10 mg 06/15/19 10:50 06/20/19 04:24 Compazine Injection - IVPB 10 mg Q4H PRN Administration NAUSEA AND/OR VOMITING Fluticasone/Salmeterol 1 puff 06/15/19 10:00 06/24/19 10:40 Advair 100mcg/50mcg - IH 1 puff BID EMILY Administration Trazodone HCl 50 mg 06/17/19 18:15 06/21/19 21:25 Desyrel - PO 50 mg HS PRN Administration INSOMNIA ASSESSMENT AND PLAN: This is a 68 year old man with a history of COPD, appendectomy, untreated hepatitis C, recurrent SBO, bowel perforation from colonoscopy who presented to the ED with abdominal pain, nausea, and vomiting. 1. SBO, recurrent, likely secondary to adhesions - Tolerated clear liquids and diet advanced to regular 2. COPD - Stable - Continue Advair 3. Insomnia - Continue Trazodone 4. Hepatitis C, untreated 5. Chronic low back pain - Continue Neurontin, oxycodone as needed - Refusing Lidoderm patch 6. Severe malnutrition - Continue PPN until PO intake is adequate - Add Ensure
[2019-06-24 17:10] VITALS: BMI 16.0
[2019-06-24] MEDS: oxyCODONE HCL 5 MG TABLET PO PRN (17:43)
[2019-06-24] MEDS: LIDOCAINE PATCH REMOVAL MC SCH (21:39)
[2019-06-24] MEDS: GABAPENTIN 300 MG CAPSULE PO SCH (21:39)
[2019-06-25] MEDS: HEPARIN NA (PORCINE) 5,000 UNITS/ML 1ML VIAL SQ SCH ×3 (05:30→22:21)
[2019-06-25] MEDS: AMINO ACIDS 4.25%/D5W 1,000 ML IV SCH (06:49)
[2019-06-25 07:08] LABS: EOS % 2.5 % (0-4.5); HEMATOCRIT 40.1 % (35.4-49); LYMPH % 31.2 % (8-40); MCH 27.3 pg (25.7-33.7); MCHC 32.3 g/dl (32.0-35.9); MEAN CELL VOLUME 84.6 fl (80-96); MEAN PLT VOLUME 8.5 fl (7.5-11.1); MONO % 9.3 % (3.8-10.2); PLATELET COUNT 219 K/MM3 (134-434); RBC 4.74 M/mm3 (4.00-5.60); RDW 15.7 % (11.9-15.9); WHITE BLOOD COUNT 6.6 K/mm3 (4.0-10.0)
[2019-06-25 07:38] LABS: ALBUMIN 3.4 g/dl (3.4-5.0); BILIRUBIN,TOTAL 0.4 mg/dL (0.2-1); BLOOD UREA NITROGEN 19.2 mg/dL (7-18); CALCIUM 9.4 mg/dL (8.5-10.1); MAGNESIUM 2.1 mg/dL (1.8-2.4); PHOSPHOROUS 3.2 mg/dL (2.5-4.9); POTASSIUM 4.5 mmol/L (3.5-5.1)
[2019-06-25] MEDS ORDERED: DOCUSATE SODIUM 100 MG CAPSULE (FP) PO PRN (08:02)
[2019-06-25] MEDS ORDERED: PT OWN MED DRAWER 7, Y5N ONE (08:58)
[2019-06-25] MEDS: LIDOCAINE 5% TOPICAL PATCH TP SCH (09:21)
[2019-06-25] MEDS: oxyCODONE HCL 5 MG TABLET PO PRN ×2 (09:21→15:25)
[2019-06-25] MEDS: FLUTICASONE/SALMETEROL 100 MCG/50 MCG DISKUS IH SCH ×2 (09:29→22:21)
[2019-06-25] MEDS: POLYETHYLENE GLYCOL 3350 119 GM BTL PO SCH (09:43)
--- NOTE | 2019-06-25 09:47 | PN ---
Progress Note (short form) - Note Progress Note: SURGERY 68yo M h/o recurrent SBO, which had resolved and then pt developed n/v on and made NPO again. Pt denies any further n/v since them. Pt states he is passing flatus and tolerating his regular diet. Pt actively eating when examined. Patient Denies abd pain, fever, chills. Last Vital Signs Temp Pulse Resp BP Pulse Ox 97.9 F 71 18 105/52 L 97 06/25/19 08:21 06/25/19 08:21 06/25/19 08:21 06/25/19 08:21 06/24/19 21:00 CBC, BMP 06/25/19 06:50 06/25/19 06:50 PE: Gen: A&Ox3, NAD Resp: breathing comfortably Abd: soft, nondistended, nontender Ext: no edema Problem List - Problems (1) Small bowel obstruction Assessment/Plan: Plan -pt is cleared from surgical standpoint for discharge. Please contact surgical team if any issues. Pt discussed with Dr. Moseley who agrees with plan Code(s): K56.69 - OTHER INTESTINAL OBSTRUCTION * DO NOT USE *
--- NOTE | 2019-06-25 15:24 | PN ---
Teaching Attending Note Name of Resident: Monica Fernández ATTENDING PHYSICIAN STATEMENT I saw and evaluated the patient. I reviewed the resident's note and discussed the case with the resident. I agree with the resident's findings and plan as documented. SUBJECTIVE: No fever or chills. No MORENO . No CP , no Abd pain, tolerated regular diet,. passed flatus. No BM yet OBJECTIVE: NAD , awake, alert, cooperative. cachectic CV: RRR, no MRG Lungs: CTAB Abd: ND, NT. nl BS Ext: No edema or erythema on upper or lower extremities . Assessment/Plan: 68 y/o man with h/o COPD, not on O2 , s/p appendectomy, untreated hepatitis C, recurrent SBO with last ex-lap with lysis of adhesions in 10/22 , who presented with ABd pain , N/V and was found to have Acute SBO. 1- SBO: due to adhesions. improved, and tolerated diet - cont diet - start stool softeners 2- H/o COPD: cont nebs and inhalers. 3- h/o lower back pain: cont neurontin and oxy 4- DVT PX: SCDs . SQ heparin dispo : Medically ready for dc , awaiting placement
--- NOTE | 2019-06-25 18:32 | PN ---
Physical Exam: SUBJECTIVE: Patient seen and examined at bedside. pt states he is passing flatus but has not had BM. pt states that he doesnt want to take miralax or colace because hes afraid of becoming dependent on it. states abdominal pain is improving, denies n/v OBJECTIVE: Vital Signs Period Temp Pulse Resp BP Sys/Monsalve Pulse Ox Last 24 Hr 97.9 F-98.4 F 71-75 18-18 97-124/52-66 97-100 GENERAL: The patient is awake, alert, and fully oriented, in no acute distress. HEAD: Normal with no signs of trauma. LUNGS: Breath sounds equal, clear to auscultation bilaterally, no wheezes, no crackles, no accessory muscle use. HEART: Regular rate and rhythm, S1, S2 without murmur, rub or gallop. ABDOMEN: Soft, nontender, nondistended, normoactive bowel sounds, no guarding EXTREMITIES: 2+ pulses, warm, well-perfused, no edema. NEUROLOGICAL: Cranial nerves II through XII grossly intact. Normal speech, gait not observed. PSYCH: Normal mood, normal affect. SKIN: Warm, dry, normal turgor, no rashes or lesions noted Laboratory Results - last 24 hr 06/25/19 06/25/19 06:50 06:50 WBC 6.6 RBC 4.74 Hgb 13.0 Hct 40.1 MCV 84.6 MCH 27.3 MCHC 32.3 RDW 15.7 Plt Count 219 MPV 8.5 Absolute Neuts (auto) 3.7 Neutrophils % 56.0 Lymphocytes % 31.2 D Monocytes % 9.3 Eosinophils % 2.5 Basophils % 1.0 Nucleated RBC % 0 Sodium 140 Potassium 4.5 Chloride 109 H Carbon Dioxide 25 Anion Gap 7 L BUN 19.2 H Creatinine 1.0 Est GFR (CKD-EPI)AfAm 87.99 Est GFR (CKD-EPI)NonAf 75.92 Random Glucose 90 Calcium 9.4 Phosphorus 3.2 Magnesium 2.1 Total Bilirubin 0.4 AST 9 L ALT 14 Alkaline Phosphatase 44 L Total Protein 7.0 Albumin 3.4 Current Medications Docusate Sodium (Colace -) 100 mg PO Q8H PRN PRN Reason: CONSTIPATION Gabapentin (Neurontin -) 300 mg PO HS [facility]ILY Last Admin: 06/24/19 21:39 Dose: 300 mg Heparin Sodium (Porcine) (Heparin -) 5,000 unit SQ TID [facility] Last Admin: 06/25/19 13:10 Dose: 5,000 unit Lidocaine (Lidoderm Patch -) 1 patch TP DAILY [facility] Last Admin: 06/25/19 09:21 Dose: Not Given Miscellaneous (Lidoderm Patch Removal) 1 each MC DAILY@2200 [facility] Last Admin: 06/24/19 21:39 Dose: Not Given Oxycodone HCl (Roxicodone -) 5 mg PO Q6H PRN PRN Reason: PAIN LEVEL 7 - 10 Last Admin: 06/25/19 15:25 Dose: 5 mg Polyethylene Glycol (Miralax (For Daily Use) -) 17 gm PO DAILY [facility] Last Admin: 06/25/19 09:43 Dose: 17 grams Prochlorperazine Edisylate (Compazine Injection -) 10 mg IVPB Q4H PRN PRN Reason: NAUSEA AND/OR VOMITING Last Admin: 06/20/19 04:24 Dose: 10 mg Fluticasone/Salmeterol (Advair 100mcg/50mcg -) 1 puff IH BID [facility] Last Admin: 06/25/19 09:29 Dose: 1 puff Trazodone HCl (Desyrel -) 50 mg PO HS PRN PRN Reason: INSOMNIA Last Admin: 06/21/19 21:25 Dose: 50 mg ASSESSMENT/PLAN: 68 yo M PMH of COPD ( not on home O2) , Hep C ( unTx), recurrent SBO ( s/p ex lap 10/22) presented to [facility] with Abdominal pain, n/v. pt found to have SBO. Acute SBO - pt tolerating diet -Surg recs (Dr. Moseley)appreciated -compazine for nausea - gabapentin and oxycodon for pain . offered lidoderm pt doesnt want COPD - stable -c/w advair - incentive spirometry Hx of LBP - c/w neurotin and oxy -PT eval appreciated. pt walked 75 feet today. Severe malnutrition - will give ensure DVT ppx: Heparin Dispo: Med/ Surg . DC tomorrow, possibly rehab. pending auth Visit type - Emergency Visit Emergency Visit: No - New Patient This patient is new to me today: No - Critical Care Critical Care patient: No - Discharge Referral Referred to [facility] Med P.C.: No ATTENDING PHYSICIAN STATEMENT I saw and evaluated the patient. I reviewed the resident's note and discussed the case with the resident. I agree with the resident's findings and plan as documented. SUBJECTIVE: OBJECTIVE: ASSESSMENT AND PLAN:
[2019-06-25] MEDS: LIDOCAINE PATCH REMOVAL MC SCH (22:21)
[2019-06-25] MEDS: GABAPENTIN 300 MG CAPSULE PO SCH (22:21)
[2019-06-26] MEDS: HEPARIN NA (PORCINE) 5,000 UNITS/ML 1ML VIAL SQ SCH ×3 (05:41→21:50)
[2019-06-26 07:26] LABS: HEMATOCRIT 34.3 % (35.4-49); HEMOGLOBIN 11.5 GM/dL (11.7-16.9); MCH 27.7 pg (25.7-33.7); MCHC 33.5 g/dl (32.0-35.9); MEAN CELL VOLUME 82.5 fl (80-96); MEAN PLT VOLUME 8.4 fl (7.5-11.1); PLATELET COUNT 212 K/MM3 (134-434); RBC 4.15 M/mm3 (4.00-5.60); RDW 15.5 % (11.9-15.9); WHITE BLOOD COUNT 5.6 K/mm3 (4.0-10.0)
[2019-06-26 08:09] LABS: BLOOD UREA NITROGEN 19.2 mg/dL (7-18); CALCIUM 8.5 mg/dL (8.5-10.1); CREATININE 0.9 mg/dL (0.55-1.3); POTASSIUM 4.4 mmol/L (3.5-5.1)
[2019-06-26] MEDS: oxyCODONE HCL 5 MG TABLET PO PRN ×2 (09:27→18:26)
[2019-06-26] MEDS: FLUTICASONE/SALMETEROL 100 MCG/50 MCG DISKUS IH SCH ×2 (09:28→21:51)
[2019-06-26] MEDS: LIDOCAINE 5% TOPICAL PATCH TP SCH (09:33)
[2019-06-26] MEDS: POLYETHYLENE GLYCOL 3350 119 GM BTL PO SCH (11:11)
--- NOTE | 2019-06-26 15:27 | PN ---
Teaching Attending Note Name of Resident: Monica Fernández ATTENDING PHYSICIAN STATEMENT I saw and evaluated the patient. I reviewed the resident's note and discussed the case with the resident. I agree with the resident's findings and plan as documented. SUBJECTIVE: NAD, awake, alert, cooperative. cachectic , pleasant CV: RRR, no MRG Lungs: CTAB Abd: ND, NT. nl BS Ext: No edema or erythema on upper or lower extremities . Assessment/Plan: 68 y/o man with h/o COPD, not on O2 , s/p appendectomy, untreated hepatitis C, recurrent SBO with last ex-lap with lysis of adhesions in 10/22 , who presented with ABd pain , N/V and was found to have Acute SBO. 1- SBO: due to adhesions. improved, and tolerated diet - cont diet -avoid constipation . BM today 2- H/o COPD: cont nebs and inhalers. 3- h/o lower back pain: cont neurontin and oxy 4- DVT PX: SCDs . dc home with VNS. auth for rehab is still pending. but in mean time his strength improved and he did well with PT. will arrange fro home PT. pt and family are on board with home dc
--- NOTE | 2019-06-26 19:08 | PN ---
Physical Exam: SUBJECTIVE: Patient seen and examined at bedside. pt has no acute complaints. denies n/v. tolerating diet. OBJECTIVE: Vital Signs Period Temp Pulse Resp BP Sys/Monsalve Pulse Ox Last 24 Hr 97.6 F-98.6 F 74-85 18-19 94-122/57-69 99-100 GENERAL: The patient is awake, alert, and fully oriented, in no acute distress.Thin male HEAD: Normal with no signs of trauma. LUNGS: Breath sounds equal, clear to auscultation bilaterally, no wheezes, no crackles, no accessory muscle use. HEART: Regular rate and rhythm, S1, S2 without murmur, rub or gallop. ABDOMEN: Soft, nontender, nondistended, normoactive bowel sounds, no guarding EXTREMITIES: 2+ pulses, warm, well-perfused, no edema. SKIN: Warm, dry, normal turgor, no rashes or lesions noted CBC, BMP 06/26/19 06:50 06/26/19 06:50 Current Medications Docusate Sodium (Colace -) 100 mg PO Q8H PRN PRN Reason: CONSTIPATION Gabapentin (Neurontin -) 300 mg PO HS [facility] Last Admin: 06/25/19 22:21 Dose: Not Given Heparin Sodium (Porcine) (Heparin -) 5,000 unit SQ TID [facility] Last Admin: 06/26/19 13:36 Dose: 5,000 unit Lidocaine (Lidoderm Patch -) 1 patch TP DAILY [facility] Last Admin: 06/26/19 09:33 Dose: Not Given Miscellaneous (Lidoderm Patch Removal) 1 each MC DAILY@2200 [facility] Last Admin: 06/25/19 22:21 Dose: Not Given Oxycodone HCl (Roxicodone -) 5 mg PO Q6H PRN PRN Reason: PAIN LEVEL 7 - 10 Last Admin: 06/26/19 18:26 Dose: 5 mg Polyethylene Glycol (Miralax (For Daily Use) -) 17 gm PO DAILY [facility] Last Admin: 06/26/19 11:11 Dose: 17 grams Prochlorperazine Edisylate (Compazine Injection -) 10 mg IVPB Q4H PRN PRN Reason: NAUSEA AND/OR VOMITING Last Admin: 06/20/19 04:24 Dose: 10 mg Fluticasone/Salmeterol (Advair 100mcg/50mcg -) 1 puff IH BID [facility] Last Admin: 06/26/19 09:28 Dose: 1 puff Trazodone HCl (Desyrel -) 50 mg PO HS PRN PRN Reason: INSOMNIA Last Admin: 06/21/19 21:25 Dose: 50 mg ASSESSMENT/PLAN: 68 yo M PMH of COPD ( not on home O2) , Hep C ( unTx), recurrent SBO ( s/p ex lap 10/22) presented to [facility] with Abdominal pain, n/v. pt found to have SBO. Acute SBO - pt tolerating diet -Surg recs (Dr. Moseley)appreciated -compazine for nausea - gabapentin and oxycodon for pain . offered lidoderm pt doesnt want Constipation c/w colace COPD - stable -c/w advair - incentive spirometry Hx of LBP - c/w neurotin and oxy -PT eval appreciated. pt walked 75 feet today. Severe malnutrition -c/w ensure DVT ppx: Heparin Dispo: Med/ Surg . DC tomorrow, possibly home with PT . family aware and on board with plan Visit type - Emergency Visit Emergency Visit: No - New Patient This patient is new to me today: No - Critical Care Critical Care patient: No - Discharge Referral Referred to [facility] Med P.C.: No ATTENDING PHYSICIAN STATEMENT I saw and evaluated the patient. I reviewed the resident's note and discussed the case with the resident. I agree with the resident's findings and plan as documented. SUBJECTIVE: OBJECTIVE: ASSESSMENT AND PLAN:
[2019-06-26] MEDS: traZODone HCL 50 MG TABLET (FP) PO PRN (21:50)
[2019-06-26] MEDS: GABAPENTIN 300 MG CAPSULE PO SCH (21:53)
[2019-06-26] MEDS: LIDOCAINE PATCH REMOVAL MC SCH (22:04)
[2019-06-27] MEDS: HEPARIN NA (PORCINE) 5,000 UNITS/ML 1ML VIAL SQ SCH ×2 (05:25→13:23)
[2019-06-27] MEDS: POLYETHYLENE GLYCOL 3350 119 GM BTL PO SCH (09:13)
[2019-06-27] MEDS: FLUTICASONE/SALMETEROL 100 MCG/50 MCG DISKUS IH SCH (09:13)
[2019-06-27] MEDS: LIDOCAINE 5% TOPICAL PATCH TP SCH (09:13)
[2019-06-27] MEDS: oxyCODONE HCL 5 MG TABLET PO PRN (13:21)
[2019-06-27 14:01] VITALS: BP 103/70; PULSE 77; TEMP 97.7
--- NOTE | 2019-06-27 14:37 | DS ---
Physical Exam: SUBJECTIVE: Patient seen and examined at bedside. pt states he is feeling well and wants to go home OBJECTIVE: Vital Signs Period Temp Pulse Resp BP Sys/Monsalve Pulse Ox Last 24 Hr 97.7 F-99 F 75-104 18-18 90-113/65-76 99-99 PHYSICAL EXAM GENERAL: The patient is awake, alert, and fully oriented, in no acute distress.Thin male HEAD: Normal with no signs of trauma. LUNGS: Breath sounds equal, clear to auscultation bilaterally, no wheezes, no crackles, no accessory muscle use. HEART: Regular rate and rhythm, S1, S2 without murmur, rub or gallop. ABDOMEN: Soft, nontender, nondistended, normoactive bowel sounds, no guarding EXTREMITIES: 2+ pulses, warm, well-perfused, no edema. SKIN: Warm, dry, normal turgor, no rashes or lesions noted LABS HOSPITAL COURSE: Date of Admission:06/15/19 68 yo M PMH of COPD ( not on home O2) , Hep C ( unTx), recurrent SBO ( s/p ex lap 10/22) presented to [facility] with Abdominal pain, n/v. pt found to have SBO. pt was evaluated by surgery and was kept NPO with IVF. pt improved and had diet slowly added. pt has been getting miralax and colace for constipation. pt has a history of copd which was stable throughout he hospital course, his advair was continued. pt was encouraged to use incentive spirometry. pt has a history of LBP which was managed with morphine while NPO and oxycodone and neurontin once diet was tolerated. attempts were made for rehab but pt was denied. pt has severe malnutritoin which was managed with ensure. pt passed pre and post, saturating well without O2. pt is discharged home with VNS . 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 You came to the hospital because you were having abdominal pain You were admitted to the hospital for a small bowel obstruction. We imaged your abdomen and saw an small bowel obstruction. We treated you with bowel rest, Naso -gastric tube and IV nutrition. Your obstruction resolved and you are now eating and passing gas. While here you were seen by the medicine physicians and surgeons You are now stable and may return home. MEDICATIONS. Please continue your home medications as prescribed. ADDITIONAL CARE. Please make an appointment to see your primary care provider, Dr. Bruce dominguez from today. Please have a CBC and a CMP drawn at that time. please follow with your surgeon or with Dr. Moseley in 2 weeks ADDITIONAL INFORMATION. Please call 911 or come directly to the emergency department if you experience worsening abdominal pain, constipation, nausea, vomiting, unusual headache, vision change, shortness of breath, chest pain, numbness, tingling, loss of alertness/awareness, loss of function, unusual bleeding or any alarming symptoms. avoid constipation , you can take colace and miralax Referrals: Rodrigo Moseley MD [Staff Physician] - Zohaib Barrera MD [Primary Care Provider] - Disposition: VNS/HOME HEALTH CARE - Home Medications Comprehensive Discharge Medication List: Ambulatory Orders Ipratropium/Albuterol Sulfate [Combivent Respimat 20-100 Mcg] 4 gm IH BID Fluticasone/Salmeterol [Advair 250-50 Diskus] 1 each IH BID 06/15/19 Gabapentin [Neurontin] 300 mg PO HS 06/15/19 Megestrol Acetate Oral Susp [Megace Oral Suspension -] 400 mg PO BID 06/15/19 Oxycodone HCl 10 mg PO BID PRN 06/15/19 Tizanidine HCl 2 mg PO BID PRN 06/15/19 traZODone HCL [Trazodone HCl] 50 mg PO HS PRN 06/15/19 Docusate Sodium [Colace -] 100 mg PO BID #60 capsule 06/26/19 Polyethylene Glycol 3350 [Miralax (For Daily Use) -] 17 gm PO DAILY #1 bottle This patient is new to me today: No Emergency Visit: No Critical Care patient: No - Discharge Referral Referred to [facility] Med P.C.: No ATTENDING PHYSICIAN STATEMENT I saw and evaluated the patient. I reviewed the resident's note and discussed the case with the resident. I agree with the resident's findings and plan as documented. SUBJECTIVE: OBJECTIVE: ASSESSMENT AND PLAN:
--- NOTE | 2019-06-27 17:46 | PN ---
Teaching Attending Note Name of Resident: Monica Fernández ATTENDING PHYSICIAN STATEMENT I saw and evaluated the patient. I reviewed the resident's note and discussed the case with the resident. I agree with the resident's findings and plan as documented. SUBJECTIVE: no change form yesterday. no BM today , no N.V. no abd pain OBJECTIVE: NAD, awake, alert, cooperative. cachectic, pleasant CV: RRR, no MRG Lungs: CTAB Abd: ND, NT. nl BS Ext: No edema or erythema on upper or lower extremities . Assessment /Plan: 68 y/o man with h/o COPD, not on O2 , s/p appendectomy, untreated hepatitis C, recurrent SBO with last ex-lap with lysis of adhesions in 10/22 , who presented with ABd pain , N/V and was found to have Acute SBO. 1- SBO: due to adhesions. resolved - cont diet - avoid constipation 2- H/o COPD: cont nebs and inhalers. 3- h/o lower back pain: cont neurontin and oxy Dc home with VNS. does not need home O2. passed Pre-Post
[2019-06-28] MEDS ORDERED: ONDANSETRON 4 MG/2 ML VIAL IVPUSH PRN (12:01)
[2019-06-28] MEDS ORDERED: MORPHINE SULFATE 2 MG/ML VIAL IVPUSH PRN (12:01)
== END 2019-06-27 18:58 | disposition home health service (06) | DRG 388 ==
LOC: JER 18:20 → JERBED 06-15 04:22 → J7W 06-15 20:31
PROVIDERS: ADMIT Internal Medicine; ATTEND Internal Medicine
DX: K56.609 Unspecified intestinal obstruction, unspecified as to partial versus complete obstruction (principal); E43 Unspecified severe protein-calorie malnutrition; R64 Cachexia; J44.1 Chronic obstructive pulmonary disease with (acute) exacerbation; Z68.1 Body mass index [BMI] 19.9 or less, adult; B18.2 Chronic viral hepatitis C; K59.00 Constipation, unspecified; G47.00 Insomnia, unspecified; M54.5 Low back pain
CPT/HCPCS: 36415; 71045-TC-FY; 74018-TC-FY; 74019-TC-FY; 74177-TC; 80048; 80053; 81003; 82550; 82607; 82728; 82746; 82803; 83540; 83550; 83605; 83690; 83735; 84100; 84443; 84484; 85025; 85027; 85610; 85730; 86850; 86900; 86901; 87086; 93005; 93010; 94010; 94761; 97116-GP; 97161-GP; 99285-25; J0131; J1644; J7030

== ENCOUNTER 2019-06-28 04:30 | Inpatient (IN) | payer MEDICARE, OTHER ==
--- NOTE | 2019-06-28 04:50 | PDOC ---
History of Present Illness - General Chief Complaint: Pain, Acute Stated Complaint: NAUSEA, VOMITING, ABD PAIN Time Seen by Provider: 06/28/19 04:50 History Source: Patient Exam Limitations: No Limitations - History of Present Illness Initial Comments: 06/28/19 05:12 68yM w PMHx COPD, HepC, recurrent SBO presenting w 1d diffuse abd pain, nausea/ vomiting since yesterday afternoon. Was discharged yesterday after having SBO managed medically on 06/14/19 w NG tube and pain control. Feels these symptoms similar to last SBO. Denies fever, cough, chest pain, SOB. Past History - Past Medical History Allergies/Adverse Reactions: Allergies Allergy/AdvReac Type Severity Reaction Status Date / Time No Known Allergies Allergy Verified 06/28/19 04:36 Home Medications: Ambulatory Orders Ipratropium/Albuterol Sulfate [Combivent Respimat 20-100 Mcg] 4 gm IH BID Fluticasone/Salmeterol [Advair 250-50 Diskus] 1 each IH BID 06/15/19 Gabapentin [Neurontin] 300 mg PO HS 06/15/19 Megestrol Acetate Oral Susp [Megace Oral Suspension -] 400 mg PO BID 06/15/19 Oxycodone HCl 10 mg PO BID PRN 06/15/19 Tizanidine HCl 2 mg PO BID PRN 06/15/19 traZODone HCL [Trazodone HCl] 50 mg PO HS PRN 06/15/19 Docusate Sodium [Colace -] 100 mg PO BID #60 capsule 06/26/19 Polyethylene Glycol 3350 [Miralax (For Daily Use) -] 17 gm PO DAILY #1 bottle Anemia: Yes (borderline) Asthma: Yes Cancer: No Cardiac Disorders: No CVA: No COPD: Yes CHF: No Dementia: No Diabetes: No GI Disorders: Yes (SBO) Disorders: No HTN: No Hypercholesterolemia: No Liver Disease: Yes (HEPATITIS C) Seizures: No Thyroid Disease: No - Surgical History Abdominal Surgery: Yes (EXP.LAP FOR SBO; RESECTION) Appendectomy: Yes Cardiac Surgery: No Cholecystectomy: No Lung Surgery: No Neurologic Surgery: No Orthopedic Surgery: Yes (sinus surgery about 40yrs ago) - Immunization History Immunization Up to Date: Yes - Psycho Social/Smoking Cessation Hx Smoking Status: Yes Smoking History: Unknown if ever smoked Have you smoked in the past 12 months: No Number of Cigarettes Smoked Daily: 5 If you are a former smoker, when did you quit?: 1.5yrs ago Information on smoking cessation initiated: No 'Breaking Loose' booklet given: 11/02/16 Hx Alcohol Use: No Drug/Substance Use Hx: No Substance Use Type: None Hx Substance Use Treatment: No Review of Systems - Review of Systems Constitutional: No: Chills, Fever HEENTM: No: Eye Pain, Nose Pain Respiratory: No: Cough, Shortness of Breath Cardiac (ROS): No: Chest Pain, Palpitations ABD/GI: Yes: Abdominal Distended, Nausea, Vomiting. No: Constipated, Diarrhea : No: Burning, Dysuria Musculoskeletal: No: Back Pain, Joint Pain Integumentary: No: Bruising, Flushing Neurological: No: Headache, Seizure Psychiatric: No: Anxiety, Depression Endocrine: No: Intolerance to Cold, Intolerance to Heat Hematologic/Lymphatic: No: Anemia, Blood Clots *Physical Exam - Vital Signs Last Vital Signs Temp Pulse Resp BP Pulse Ox 98.0 F 112 H 18 106/73 94 L 06/28/19 04:36 06/28/19 04:36 06/28/19 04:36 06/28/19 04:36 06/28/19 04:36 - Physical Exam General Appearance: Yes: Nourished, Appropriately Dressed, Mild Distress HEENT: positive: EOMI, RAVI, Normal Voice. negative: Scleral Icterus (R), Scleral Icterus (L) Respiratory/Chest: positive: Lungs Clear, Normal Breath Sounds. negative: Chest Tender, Respiratory Distress Cardiovascular: positive: Regular Rhythm, S1, S2, Tachycardia. negative: Edema , Murmur Gastrointestinal/Abdominal: positive: Tender (diffuse moderate), Distended (mild ), Guarding, Rebound Extremity: positive: Delayed Capillary Refill Integumentary: positive: Normal Color, Dry Neurologic: positive: Fully Oriented, Alert, Normal Response, Responsive ED Treatment Course - LABORATORY CBC & Chemistry Diagram: 06/28/19 05:54 06/28/19 05:54 Medical Decision Making - Medical Decision Making 06/28/19 05:28 EKG --- 68yM w PMHx COPD, HepC, recurrent SBO presenting w 1d diffuse abd pain, nausea/ vomiting likely has SBO Imaging deferred d/t high suspicion for SBO, recent imaging, radiation exposure Given 1L NS, 4 morphine, zofran. Pt refused to have NG tube placed by anyone except Dr Azar Admitted m/s Dr Way for SBO Discharge - Discharge Information Problems reviewed: Yes Clinical Impression/Diagnosis: SBO (small bowel obstruction) Condition: Stable - Follow up/Referral Referrals: Zohaib Barrera MD [Primary Care Provider] - - Patient Discharge Instructions - Post Discharge Activity
--- NOTE | 2019-06-28 05:14 | PDOC ---
Attending Attestation - Resident Resident Name: Peter Stauffer - ED Attending Attestation I have performed the following: I have examined & evaluated the patient, The case was reviewed & discussed with the resident, I agree w/resident's findings & plan - HPI HPI: 06/28/19 06:17 Pt comes with abdominal pain and now with r/o SBO once again; I saw him last week for the same and at that time he was admitted. - Physicial Exam PE: 06/29/19 04:53 Agree with resident exam Pt has diffuse abd pain and gassy bowel sounds Afebrile VSS - Medical Decision Making 06/29/19 04:54 Pt will be admitted for SBO; abd pain; weight loss. 06/29/19 04:58 Patient Name: ELTON PATEL PRELIMINARY REPORT FROM IMAGING PHYSICIAN EXTENDER EXAM: CT abdomen pelvis with contrast DATE: 2019-06-28 20:24:04 IMAGES: [id number] HISTORY: SBO IMPRESSION: Emphysema. Proximal small bowel dilation is again seen (slightly decreased). Transition at mid pelvis area compatible with obstruction (mid small bowel). No free air seen.
[2019-06-28] MEDS ORDERED: ONDANSETRON 4 MG/2 ML VIAL IVPUSH ONE (05:21)
[2019-06-28] MEDS ORDERED: morphine CARPU-JECT 4 MG/1 ML DISP.SYRIN IVPUSH ONE (05:21)
[2019-06-28] MEDS ORDERED: LIDOCAINE VISCOUS 2% ORAL/TOP 20 ML UNIT-DOSE CUP MM ONE (05:21)
[2019-06-28] MEDS ORDERED: SODIUM CHLORIDE 0.9% 500 ML INFUS.BAG IV ONE (05:27)
[2019-06-28] MEDS ORDERED: BENZOIN 118 ML SPRAY.PUMP TP ONE (05:27)
[2019-06-28] MEDS ORDERED: LIDOCAINE HCL 2% JELLY 10 ML CARTRIDGE ONE (05:31)
[2019-06-28] MEDS ORDERED: morphine SULFATE 4 MG/ML VIAL ONE (05:31)
[2019-06-28] MEDS ORDERED: BENZOCAINE 20% 57 GM BOTTLE TP ONE (05:31)
[2019-06-28] MEDS ORDERED: ONDANSETRON 4 MG/2 ML VIAL ONE (05:32)
[2019-06-28 06:19] LABS: BASO % 0.5 % (0-2.0); EOS % 0.5 % (0-4.5); HEMATOCRIT 42.6 % (35.4-49); HEMOGLOBIN 14.2 GM/dL (11.7-16.9); LYMPH % 10.7 % (8-40); MCH 27.8 pg (25.7-33.7); MCHC 33.4 g/dl (32.0-35.9); MEAN CELL VOLUME 83.2 fl (80-96); MEAN PLT VOLUME 8.3 fl (7.5-11.1); NEUT % 81.3 % (42.8-82.8); PLATELET COUNT 273 K/MM3 (134-434); RBC 5.12 M/mm3 (4.00-5.60); RDW 15.8 % (11.9-15.9); WHITE BLOOD COUNT 10.4 K/mm3 (4.0-10.0)
[2019-06-28 07:17] LABS: ALBUMIN 4.2 g/dl (3.4-5.0); BILIRUBIN,TOTAL 0.4 mg/dL (0.2-1); BLOOD UREA NITROGEN 22.3 mg/dL (7-18); CALCIUM 10.6 mg/dL (8.5-10.1); CREATININE 1.1 mg/dL (0.55-1.3); POTASSIUM 4.7 mmol/L (3.5-5.1); TOT PROT 8.4 g/dl (6.4-8.2)
--- NOTE | 2019-06-28 10:34 | EKG ---
Test Reason : Blood Pressure : / mmHG Vent. Rate : 087 BPM Atrial Rate : 087 BPM P-R Int : 154 ms QRS Dur : 062 ms QT Int : 372 ms P-R-T Axes : 083 081 082 degrees QTc Int : 447 ms NORMAL SINUS RHYTHM NORMAL ECG WHEN COMPARED WITH ECG OF 20-JUN-2019 10:50, NO SIGNIFICANT CHANGE WAS FOUND Confirmed by STEPHAN LOJA MD ([id number]) on 06/28/2019 10:33:44 AM Referred By: Confirmed By:STEPHAN LOJA MD
--- NOTE | 2019-06-28 11:57 | PN ---
Teaching Attending Note Name of Resident: Monica Fernández ATTENDING PHYSICIAN STATEMENT I saw and evaluated the patient. I reviewed the resident's note and discussed the case with the resident. I agree with the resident's findings and plan as documented. SUBJECTIVE: CC: N/V/Abd khanh HPI : very pleasant gentleman with h/o SOB who was recently discharged after conservative treatment for SBO. he came back last night as after a big BM, he felt adb pain, distention and N/V. he brown snot knwo if his BM was bloody. His emesis was non bloody. denies fever or chills. No SOB. now continue to be nauseous but no vomiting. vomited in ER but declined NGT by ER staff. . OBJECTIVE: NAD, awake, alert, cooperative. cachectic, pleasant. CV: RRR, no MRG Lungs: CTAB Abd: slightly more distended than on discharge. TTP inall quadrants especially L anil-umbilical area. Ext: No edema or erythema on upper or lower extremities . neuro: round equal pupils, reactive to light . no facial droop. strength 5/5 in upper and lower extremities proximally and distally . EKG reviewed. Assessment /Plan: 68 y/o man with h/o COPD, not on O2 , s/p appendectomy, untreated hepatitis C, recurrent SBO with last ex-lap with lysis of adhesions in 10/22 , and recent admission fro SBO ( conservative management , d/c on 06/25/19) who presented with abd pain, and N/V andwas found to have acute SBO 1- Abd pain and distension : likely recurrent SBO. No KUB was done in ER . - will get KUB - NPO - NGT placement , patient wants it placed by surgeon - repeat lactic - give IVF . - consult Surgery 2- H/o COPD: nebs and inhalers. 3- h/o lower back pain: cont neurontin and oxy whn able to take po . now will give morphine PRN HLOC
[2019-06-28] MEDS ORDERED: SODIUM CHLORIDE 1,000 ML IV SCH (12:00)
[2019-06-28] MEDS ORDERED: ONDANSETRON 4 MG/2 ML VIAL IVPUSH PRN (12:15)
[2019-06-28] MEDS ORDERED: POTASSIUM CHLORIDE 10 MEQ in DEXTROSE 5%-NORMAL SALINE 1,000 ML IVPB SCH ×2 (12:15→12:49)
[2019-06-28] MEDS ORDERED: PROCHLORPERAZINE INJECTION 10 MG/2 ML VIAL IVPB PRN (12:19)
[2019-06-28] MEDS ORDERED: SODIUM CHLORIDE 1,000 ML IV STA (13:23)
--- NOTE | 2019-06-28 14:09 | HP ---
CHIEF COMPLAINT: nausea/ vomiting PCP: HISTORY OF PRESENT ILLNESS: 68 yo M PMH of COPD (not on home O2), Hep (untreated), multiple SBOs(s/p Ex-Lap for NHI in 2013 and 2017) presents for acute nausea / vomiting. pt was recently discharged yesterday from [facility] for SBO. pt states that he had a BM last night and then felt very nauseated and vomited several times throughout the night, last vomit right before he arrived to the ED. Pt states that he has some abdominal discomfort. he states his last meal was given to him by the hospital and he did not yet have food at home. ER course was notable for: (1)Given 1L NS, 4 morphine, zofran. PAST MEDICAL HISTORY: see HPI PAST SURGICAL HISTORY: Ex-Lap x 3 ( as above and for perforated colon during colonoscopy in 2012), Appendectomy, ACDF of lower cervical spine Social History: Smoking: Alcohol: Drugs: Allergies No Known Allergies Allergy (Verified 06/28/19 04:36) HOME MEDICATIONS: Home Medications Medication Instructions Recorded Ipratropium/Albuterol Sulfate 4 gm IH BID 10/13/17 [Combivent Respimat 20-100 Mcg] Fluticasone/Salmeterol [Advair 1 each IH BID 06/15/19 250-50 Diskus] Gabapentin [Neurontin] 300 mg PO HS 06/15/19 Megestrol Acetate Oral Susp 400 mg PO BID 06/15/19 [Megace Oral Suspension -] Oxycodone HCl 10 mg PO BID PRN 06/15/19 Tizanidine HCl 2 mg PO BID PRN 06/15/19 traZODone HCL [Trazodone HCl] 50 mg PO HS PRN 06/15/19 Docusate Sodium [Colace -] 100 mg PO BID #60 capsule 06/26/19 Polyethylene Glycol 3350 [Miralax 17 gm PO DAILY #1 bottle 06/27/19 (For Daily Use) -] REVIEW OF SYSTEMS CONSTITUTIONAL: Absent: fever, chills, diaphoresis, generalized weakness, malaise, loss of appetite, weight change HEENT: Absent: rhinorrhea, nasal congestion, throat pain, throat swelling, difficulty swallowing, mouth swelling, ear pain, eye pain, visual changes CARDIOVASCULAR: Absent: chest pain, syncope, palpitations, irregular heart rate, lightheadedness, peripheral edema RESPIRATORY: Absent: cough, shortness of breath, dyspnea with exertion, orthopnea, wheezing, stridor, hemoptysis GASTROINTESTINAL: Present: nausea, vomiting, abdominal pain Absent: abdominal distension, diarrhea, constipation, melena, hematochezia GENITOURINARY: Absent: dysuria, frequency, urgency, hesitancy, hematuria, flank pain, genital pain MUSCULOSKELETAL: Absent: myalgia, arthralgia, joint swelling, back pain, neck pain SKIN: Absent: rash, itching, pallor HEMATOLOGIC/IMMUNOLOGIC: Absent: easy bleeding, easy bruising, lymphadenopathy, frequent infections ENDOCRINE: Absent: unexplained weight gain, unexplained weight loss, heat intolerance, cold intolerance NEUROLOGIC: Absent: headache, focal weakness or paresthesias, dizziness, unsteady gait, seizure, mental status changes, bladder or bowel incontinence PSYCHIATRIC: Absent: anxiety, depression, suicidal or homicidal ideation, hallucinations. PHYSICAL EXAMINATION Vital Signs - 24 hr 06/28/19 06/28/19 06/28/19 04:36 06:56 13:45 Temperature 98.0 F 98.0 F 98.3 F Pulse Rate 112 H 100 H Pulse Rate [ 102 H Both] Respiratory 18 18 20 Rate Blood Pressure 106/73 106/68 Blood Pressure 109/77 [Right Arm] O2 Sat by Pulse 94 L 98 Oximetry (%) GENERAL: The patient is awake, alert, and fully oriented, in no acute distress.Thin male HEAD: Normal with no signs of trauma. LUNGS: Breath sounds equal, clear to auscultation bilaterally, no wheezes, no crackles, no accessory muscle use. HEART: Regular rate and rhythm, S1, S2 without murmur, rub or gallop. ABDOMEN: Soft, tender to palpation around umbilical, nondistended, normoactive bowel sounds, no guarding EXTREMITIES: 2+ pulses, warm, well-perfused, no edema. SKIN: Warm, dry, normal turgor, no rashes or lesions noted Laboratory Results - last 24 hr 06/28/19 06/28/19 06/28/19 05:54 05:54 05:54 WBC 10.4 H RBC 5.12 Hgb 14.2 Hct 42.6 D MCV 83.2 MCH 27.8 MCHC 33.4 RDW 15.8 Plt Count 273 D MPV 8.3 Absolute Neuts (auto) 8.4 H Neutrophils % 81.3 D Lymphocytes % 10.7 D Monocytes % 7.0 Eosinophils % 0.5 Basophils % 0.5 Nucleated RBC % 0 Sodium 137 Potassium 4.7 Chloride 96 L Carbon Dioxide 32 Anion Gap 8 BUN 22.3 H Creatinine 1.1 Est GFR (CKD-EPI)AfAm 78.41 Est GFR (CKD-EPI)NonAf 67.66 Random Glucose 117 H Lactic Acid 3.3 H* Calcium 10.6 H Total Bilirubin 0.4 AST 25 ALT 18 Alkaline Phosphatase 56 Total Protein 8.4 H Albumin 4.2 ASSESSMENT/PLAN: 68 yo M PMH of COPD ( not on home O2) , Hep C ( unTx), recurrent SBO ( s/p ex lap 10/22) presented to [facility] with Abdominal pain, n/v. pt found to have SBO. Acute SBO - NPO, IVF -Surg recs (Dr. Rudolph)appreciated -zofran for nausea - morphine for pain, hold gapapentin and oxy while npo -XR flat and upright reviewed - pending CT abdomen pelvis COPD - stable -c/w advair - incentive spirometry - passed Pre- post yesterday Hx of LBP - morphine, will hold neurotin and oxy -PT eval Severe malnutrition - will give ensure DVT ppx: Heparin Dispo: Med/ Surg Visit type - Emergency Visit Emergency Visit: No - New Patient This patient is new to me today: No - Critical Care Critical Care patient: No ATTENDING PHYSICIAN STATEMENT I saw and evaluated the patient. I reviewed the resident's note and discussed the case with the resident. I agree with the resident's findings and plan as documented. SUBJECTIVE: OBJECTIVE: ASSESSMENT AND PLAN:
[2019-06-28] MEDS: MORPHINE SULFATE 2 MG/ML VIAL IVPUSH PRN (14:23)
[2019-06-28] MEDS: POTASSIUM CHLORIDE 10 MEQ in DEXTROSE 5%-NORMAL SALINE 1,000 ML IVPB SCH (15:00)
[2019-06-28] MEDS ORDERED: PT OWN MED DRAWER 7, Y5N ONE (15:32)
--- NOTE | 2019-06-28 15:32 | CONSULT ---
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 He had been tolerating regular diet for a couple days, had breakfast and lunch yesterday, but felt some nausea returning after lunch, so did not eat dinner. He also became distended. He had hard BM (his last) around 6pm, then went home with his daughter, but the nausea persisted, and he did not try to eat anything. He then had emesis of some partially digested lunch and brownish liquid, and by 1am was back in ER with suspicion of persistent/recurrent obstruction. He was readmitted to medicine, declined NGT if not placed by surgeon or GI, and has remained NPO. He has had some IV fluids, and labs showed dehydration (lact 3.3, BUN/Cr 22/1.1). He has not voided recently. Surgery was asked to assess. He is seen and examined in bed. He reports occasional nausea still - came and went once during exam with some spitting up of saliva. He is willing to drink contrast for CT scan. AXR was done, showing stool in colon (constipated), but no clear obstructive pattern and no free air. He did not have oral contrast during recent hospitalization. He states he has a little pain in his central abdomen, around umbilical area, but that his abdomen is not distended. He did pass some gas earlier. CT has been ordered with contrast. - History Source History Provided By: Patient, Medical Record Limitations to Obtaining History: No Limitations - Past Medical History Pulmonary: Yes: COPD Gastrointestinal: Yes: Other (recurrent SBO - s/p SB resection for SBO, revision of SB anastomosis for SBO) Hepatobiliary: Yes: Hepatitis C Musculoskeletal: Yes: Chronic low back pain, Osteoarthritis (uses walker at home ) - Past Surgical History Past Surgical History: Yes: Appendectomy, Colonoscopy, Hernia Repair (right inguinal (unknown if mesh used)) Additional Surgical History: skull surgery for CSF leak; SB resection, possibly for SBO; negative laparotomy for free air after colonoscopy 2012, laparotomy with revision of SB anastomosis for SBO 2013, laparotomy with NHI for SBO 10/22 - Alcohol/Substance Use Hx Alcohol Use: Yes (quit a few years ago, rarely now) History of Substance Use: reports: Prescription (uses Rx oxycodone/pain meds as prescribed). denies: Marijuana (has medical MJ card but has not used any yet) - Smoking History Smoking history: Former smoker Have you smoked in the past 12 months: No Aproximately how many cigarettes per day: 5 (less than a pack a day x 57 yrs) If you are a former smoker, when did you quit?: 1 yr ago - Social History ADL: Independent History of Recent Travel: No Home Medications - Allergies Allergies/Adverse Reactions: Allergies Allergy/AdvReac Type Severity Reaction Status Date / Time No Known Allergies Allergy Verified 06/28/19 04:36 - Home Medications Home Medications: Ambulatory Orders Ipratropium/Albuterol Sulfate [Combivent Respimat 20-100 Mcg] 4 gm IH BID Fluticasone/Salmeterol [Advair 250-50 Diskus] 1 each IH BID 06/15/19 Gabapentin [Neurontin] 300 mg PO HS 06/15/19 Megestrol Acetate Oral Susp [Megace Oral Suspension -] 400 mg PO BID 06/15/19 Oxycodone HCl 10 mg PO BID PRN 06/15/19 Tizanidine HCl 2 mg PO BID PRN 06/15/19 traZODone HCL [Trazodone HCl] 50 mg PO HS PRN 06/15/19 Docusate Sodium [Colace -] 100 mg PO BID #60 capsule 06/26/19 Polyethylene Glycol 3350 [Miralax (For Daily Use) -] 17 gm PO DAILY #1 bottle Family Medical History Family History: Unremarkable (noncontributory) Review of Systems - Review of Systems Constitutional: denies: Chills, Fever Eyes: reports: Other (reading glasses). denies: Recent Change in Vision HENT: denies: Difficult Swallowing, Throat Pain Neck: denies: Swollen Glands, Tenderness Cardiovascular: denies: Chest Pain, Palpitations Respiratory: reports: SOB on Exertion (sometimes). denies: Cough, SOB Gastrointestinal: reports: Abdominal Pain (with hpi), Constipation, Nausea ( with hpi), Vomiting (with hpi). denies: Diarrhea Genitourinary: denies: Burning, Dysuria Musculoskeletal: reports: Back Pain, Joint Pain. denies: Extremity Pain Integumentary: denies: Change in Color, Rash Neurological: denies: Dizziness (occas when he gets up too fast), Headache Psychiatric: denies: Anxiety, Depression Physical Exam Vital Signs: Vital Signs Temperature 98.3 F 06/28/19 13:45 Pulse Rate 100 H 06/28/19 13:45 Respiratory Rate 06/28/19 13:45 Blood Pressure 106/68 06/28/19 13:45 O2 Sat by Pulse Oximetry (%) 98 06/28/19 06:56 Constitutional: Yes: No Distress, Calm, Thin Eyes: Yes: Conjunctiva Clear, EOM Intact HENT: Yes: Atraumatic, Normocephalic Neck: Yes: Supple, Trachea Midline Cardiovascular: Yes: Regular Rate and Rhythm Respiratory: Yes: Regular, CTA Bilaterally Gastrointestinal: Yes: Soft, Hernia (central midline diastasis vs incisional hernia - under scar, some separation of fascial edges palpable), Tenderness ( mild periumbilically at scar/midline region, no rebound or guarding), Other ( well-healed midline scar, R inguinal scar, RLQ scar). No: Distention ...Rectal Exam: Yes: Deferred Renal/: Yes: CVA Tenderness - Left (mild), CVA Tenderness - Right (mild) Musculoskeletal: No: Joint Stiffness, Joint Swelling Extremities: No: Cool, Cyanosis Edema: No Peripheral Pulses WNL: Yes Integumentary: No: Jaundice, Rash Neurological: Yes: Alert, Oriented Psychiatric: Yes: Alert, Oriented Labs: CBC, BMP 06/28/19 05:54 06/28/19 05:54 CMP Sodium 137 mmol/L (136-145) 06/28/19 05:54 Potassium 4.7 mmol/L (3.5-5.1) 06/28/19 05:54 Chloride 96 mmol/L (98-107) L 06/28/19 05:54 Carbon Dioxide 32 mmol/L (21-32) 06/28/19 05:54 Anion Gap 8 MMOL/L (8-16) 06/28/19 05:54 BUN 22.3 mg/dL (7-18) H 06/28/19 05:54 Creatinine 1.1 mg/dL (0.55-1.3) 06/28/19 05:54 Est GFR (CKD-EPI)AfAm 78.41 06/28/19 05:54 Est GFR (CKD-EPI)NonAf 67.66 06/28/19 05:54 Random Glucose 117 mg/dL (74-106) H 06/28/19 05:54 Lactic Acid 3.3 mmol/L (0.4-2.0) H* 06/28/19 05:54 Calcium 10.6 mg/dL (8.5-10.1) H 06/28/19 05:54 Total Bilirubin 0.4 mg/dL (0.2-1) 06/28/19 05:54 AST 25 U/L (15-37) 06/28/19 05:54 ALT 18 U/L (13-61) 06/28/19 05:54 Alkaline Phosphatase 56 U/L (45-117) 06/28/19 05:54 Total Protein 8.4 g/dl (6.4-8.2) H 06/28/19 05:54 Albumin 4.2 g/dl (3.4-5.0) 06/28/19 05:54 repeat lactate pending repeat chem ordered Imaging - Results X-ray: Report Reviewed, Image Reviewed (AXR with stool/constipation, no clear signs of obstruction, + gastric bubble, no free air) Cat Scan: Pending EKG: Report Reviewed Problem List - Problems (1) Small bowel obstruction due to adhesions Code(s): K56.50 - INTESTNL ADHESIONS, UNSP TO PARTIAL VERSUS COMPLETE OBST (2) Periumbilical pain Code(s): R10.33 - PERIUMBILICAL PAIN (3) Nausea and vomiting Code(s): R11.2 - NAUSEA WITH VOMITING, UNSPECIFIED Qualifiers: Vomiting type: unspecified Vomiting Intractability: non-intractable Qualified Code(s): R11.2 - Nausea with vomiting, unspecified (4) Dehydration Code(s): E86.0 - DEHYDRATION (5) Constipation due to opioid therapy Code(s): K59.03 - DRUG INDUCED CONSTIPATION; T40.2X5A - ADVERSE EFFECT OF OTHER OPIOIDS, INITIAL ENCOUNTER (6) Cachexia Code(s): R64 - CACHEXIA (7) COPD (chronic obstructive pulmonary disease) Assessment/Plan: continue home inhalers Code(s): J44.9 - CHRONIC OBSTRUCTIVE PULMONARY DISEASE, UNSPECIFIED Qualifiers: COPD type: unspecified COPD Qualified Code(s): J44.9 - Chronic obstructive pulmonary disease, unspecified (8) Hepatitis C, chronic Code(s): B18.2 - CHRONIC VIRAL HEPATITIS C Qualifiers: Hepatic coma status: without hepatic coma Qualified Code(s): B18.2 - Chronic viral hepatitis C Assessment/Plan possible recurrent/persistent SBO vs constipation (likely related to chronic opiate use) AXR not clearly with obstructive picture pt prefers to try drinking oral contrast for CT will f/u CT results to evaluate whether obstruction is present and characterize if possible if he vomits contrast, would obtain scan anyway may need NG if CT does show obstruction po contrast may also help with constipation may need addition of laxative to daily bowel regimen, given chronic opioid use ( not just stool softeners) will continue to follow with you obtain coags and T&S with am labs, as operative intervention could still be required at some point maintain NPO (strict after contrast) and IV fluids for maintenance trend labs DVT prophylaxis Thank you for the opportunity to participate in the care of this patient. discussed with Dr. Silvia Fernández of primary team
[2019-06-28 17:18] LABS: BLOOD UREA NITROGEN 22.6 mg/dL (7-18); CALCIUM 8.9 mg/dL (8.5-10.1); CREATININE 1.1 mg/dL (0.55-1.3); POTASSIUM 4.5 mmol/L (3.5-5.1)
[2019-06-28 17:43] VITALS: BMI 16.2
[2019-06-28] MEDS ORDERED: PATIENT'S OWN MEDICATION (NON-FORMULARY) (Ipratropium/Albuterol Sulfate [Combivent Respima IH SCH (22:00)
[2019-06-28] MEDS: HEPARIN NA (PORCINE) 5,000 UNITS/ML 1ML VIAL SQ SCH (22:25)
[2019-06-29] MEDS: POTASSIUM CHLORIDE 10 MEQ in DEXTROSE 5%-NORMAL SALINE 1,000 ML IVPB SCH ×3 (01:25→17:44)
[2019-06-29] MEDS: HEPARIN NA (PORCINE) 5,000 UNITS/ML 1ML VIAL SQ SCH ×3 (06:22→21:07)
[2019-06-29 07:52] LABS: HEMATOCRIT 30.6 % (35.4-49); HEMOGLOBIN 10.1 GM/dL (11.7-16.9); MCH 27.7 pg (25.7-33.7); MCHC 33.1 g/dl (32.0-35.9); MEAN CELL VOLUME 83.7 fl (80-96); MEAN PLT VOLUME 8.3 fl (7.5-11.1); PLATELET COUNT 210 K/MM3 (134-434); RBC 3.65 M/mm3 (4.00-5.60); RDW 15.8 % (11.9-15.9); WHITE BLOOD COUNT 4.9 K/mm3 (4.0-10.0)
[2019-06-29 08:09] LABS: BLOOD UREA NITROGEN 20.4 mg/dL (7-18); CALCIUM 8.3 mg/dL (8.5-10.1); MAGNESIUM 2.1 mg/dL (1.8-2.4); PHOSPHOROUS 3.4 mg/dL (2.5-4.9); POTASSIUM 4.3 mmol/L (3.5-5.1)
--- NOTE | 2019-06-29 08:24 | PN ---
Progress Note (short form) - Note Progress Note: Subjective: no abd pain, no fever or chills , no N/v. had 2 BMs already. No N/V . feels much betetr Objective: Vital Signs: Last Vital Signs Temp Pulse Resp BP Pulse Ox 98.9 F 98 H 20 106/70 98 06/29/19 05:55 06/29/19 05:55 06/29/19 05:55 06/29/19 05:55 06/28/19 21:00 Laboratory Results - last 24 hr 06/28/19 06/28/19 06/28/19 14:35 16:20 16:20 WBC RBC Hgb Hct MCV MCH MCHC RDW Plt Count MPV Sodium 141 Potassium 4.5 Chloride 106 Carbon Dioxide 31 Anion Gap 4 L BUN 22.6 H Creatinine 1.1 Est GFR (CKD-EPI)AfAm 78.41 Est GFR (CKD-EPI)NonAf 67.66 Random Glucose 127 H Lactic Acid 1.9 Calcium 8.9 Phosphorus Magnesium 2.0 Blood Type A POSITIVE Antibody Screen Negative 06/29/19 06/29/19 07:20 07:20 WBC 4.9 RBC 3.65 L Hgb 10.1 L Hct 30.6 L D MCV 83.7 MCH 27.7 MCHC 33.1 RDW 15.8 Plt Count 210 D MPV 8.3 Sodium 140 Potassium 4.3 Chloride 109 H Carbon Dioxide 27 Anion Gap 4 L BUN 20.4 H Creatinine 1.0 Est GFR (CKD-EPI)AfAm 87.99 Est GFR (CKD-EPI)NonAf 75.92 Random Glucose 92 Lactic Acid Calcium 8.3 L Phosphorus 3.4 Magnesium 2.1 Blood Type Antibody Screen Physical Exam: NAD, awake, alert, cooperative. cachectic, pleasant. CV: RRR, no MRG Lungs: CTAB Abd: no ditention today. Abd is soft, .NT. NL BS Ext: No edema or erythema on upper or lower extremities . Assessment /Plan: 68 y/o man with h/o COPD, not on O2 , s/p appendectomy, untreated hepatitis C, recurrent SBO with last ex-lap with lysis of adhesions in 10/22 , and recent admission fro SBO ( conservative management , d/c on 06/25/19) who presented with abd pain, and N/V andwas found to have acute SBO 1- Recurrent SBO. improved , had BMS , and abd exam is better . - CT images reviewed( report pending ) , SBO is evident. - will ask Dr. Rudolph if we can feed patient , clear liquid diet - cont IVF . - add bowel regimen 2- H/o COPD: cont inhalers. 3- h/o lower back pain: neuro and oxy when po is allowed HLOC Visit type - Emergency Visit Emergency Visit: Yes ED Registration Date: 06/28/19 Care time: The patient presented to the Emergency Department on the above date and was hospitalized for further evaluation of their emergent condition. - New Patient This patient is new to me today: No - Critical Care Critical Care patient: No
[2019-06-29 08:39] LABS: INR 1.32 (0.83-1.09); PROTHROMBIN TIME (PATIENT) 15.6 SEC (9.7-13.0)
[2019-06-29 08:42] LABS: ACTIVATED PTT 31.5 SECONDS (25.2-36.5)
[2019-06-29] MEDS ORDERED: POLYETHYLENE GLYCOL 3350 119 GM BTL PO SCH (10:00)
[2019-06-29] MEDS: BUDESONIDE/FORMETEROL FUMARATE 80/4.5 mcg INHALER IH SCH ×2 (10:40→21:07)
--- NOTE | 2019-06-29 15:55 | PN ---
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 He had CT yesterday evening with contrast, showing high-grade partial SBO around mid-SB, with contrast and air into colon, but proximal dilated, fluid- filled small bowel and nondilated distal SB. He has had multiple BMs since then , getting looser, and is feeling better overall. No sig pain, minimal discomfort only around umbilicus/under scar. He is passing some gas. AXR today shows contrast more distal in colon, with air in colon and small bowel, still some dilated SB loops, consistent with pSBO. He is seen and examined in bed. He denies nausea since drinking the contrast. Has been using walker to ambulate with assistance to bathroom. - Current Medication List Current Medications: Active Medications Budesonide/Formoterol Fumarate (Symbicort 80/4.5mcg -) 2 puff IH BID [facility] Last Admin: 06/29/19 10:40 Dose: 2 inh Heparin Sodium (Porcine) (Heparin -) 5,000 unit SQ TID [facility] Last Admin: 06/29/19 13:16 Dose: 5,000 unit Potassium Chloride 10 meq/ (Dextrose/Sodium Chloride) 1,005 mls @ 100 mls/hr IVPB Q10H [facility] Last Admin: 06/29/19 12:33 Dose: 100 mls/hr Morphine Sulfate (Morphine Sulfate) 2 mg IVPUSH Q4H PRN PRN Reason: PAIN LEVEL 7 - 10 Last Admin: 06/28/19 14:23 Dose: 2 mg Prochlorperazine Edisylate (Compazine Injection -) 5 mg IVPB Q4H PRN PRN Reason: NAUSEA Last Admin: 06/28/19 16:11 Dose: 5 mg - Objective Vital Signs: Vital Signs Temperature 98.2 F 06/29/19 13:49 Pulse Rate 79 06/29/19 13:49 Respiratory Rate 20 06/29/19 13:49 Blood Pressure 92/59 L 06/29/19 13:49 O2 Sat by Pulse Oximetry (%) 97 06/29/19 09:00 Constitutional: Yes: No Distress, Calm, Thin Eyes: Yes: Conjunctiva Clear, EOM Intact HENT: Yes: Atraumatic, Normocephalic Gastrointestinal: Yes: Normal Bowel Sounds, Soft, Distention (mild/minimal, + tympany), Hernia (fascial separation under midline scar palpable without bulging ). No: Tenderness (minimal discomfort at umbilical/midline scar only) Extremities: No: Cool, Cyanosis Integumentary: No: Jaundice, Rash Neurological: Yes: Alert, Oriented Labs: CBC, BMP 06/29/19 07:20 06/29/19 07:20 INR, PTT INR 1.32 (0.83-1.09) H 06/29/19 07:20 BUN/Cr down a little from 28/05.1 - ....Imaging X-ray: Report Reviewed, Image Reviewed (contrast into distal colon, air in colon and SB loops, still with some dilated SB loops, c/w pSBO) Cat Scan: Report Reviewed (high grade partial SBO), Image Reviewed (contrast in proximal colon/distal SB, air and stool in colon, proximal fluid-filled dilated SB loops and gastric distention, no free air or fluid, small midline fascial gap noted where palpable) Problem List - Problems (1) Small bowel obstruction due to adhesions Code(s): K56.50 - INTESTNL ADHESIONS, UNSP TO PARTIAL VERSUS COMPLETE OBST (2) Periumbilical pain Code(s): R10.33 - PERIUMBILICAL PAIN (3) Nausea and vomiting Code(s): R11.2 - NAUSEA WITH VOMITING, UNSPECIFIED Qualifiers: Vomiting type: unspecified Vomiting Intractability: non-intractable Qualified Code(s): R11.2 - Nausea with vomiting, unspecified (4) Dehydration Code(s): E86.0 - DEHYDRATION (5) Constipation due to opioid therapy Code(s): K59.03 - DRUG INDUCED CONSTIPATION; T40.2X5A - ADVERSE EFFECT OF OTHER OPIOIDS, INITIAL ENCOUNTER (6) Cachexia Code(s): R64 - CACHEXIA (7) COPD (chronic obstructive pulmonary disease) Code(s): J44.9 - CHRONIC OBSTRUCTIVE PULMONARY DISEASE, UNSPECIFIED Qualifiers: COPD type: unspecified COPD Qualified Code(s): J44.9 - Chronic obstructive pulmonary disease, unspecified (8) Hepatitis C, chronic Code(s): B18.2 - CHRONIC VIRAL HEPATITIS C Qualifiers: Hepatic coma status: without hepatic coma Qualified Code(s): B18.2 - Chronic viral hepatitis C Assessment/Plan recurrent/persistent partial SBO, likely with chronic component discussed with patient that this may not be fully relieved/corrected without surgery at some point, but that it is not an emergency right now operation may have benefit of relieving obstruction, but also carries risks of intestinal injury, new/increasing scar tissue, continued risk of future obstruction(s) offered pt options of: A - surgical exploration B - NGT decompression before po trial C - trial of clear liquids; with the understanding that if nausea/bloating recurs with po intake, he may need to adjust diet at home if all he can tolerate is liquids/full liquids, or that surgery may be necessary after all it could take more than a day for SB to fill up enough proximally to cause N/V Pt would like to try starting clear liquids and see how he does. If he has nausea, bloating that does not improve with bowel function, or vomiting, he will alert his nurse and revert to NPO. Would not advance for at least 24 hrs. Will hold off on motility agents for now, given partial obstruction and effectiveness of oral contrast in evacuating colon. continue IV fluids for now, decrease rate trend labs DVT prophylaxis following with you left message for pt's daughter - will discuss with her when we can speak discussed with Dr. Butler
[2019-06-29] MEDS: MORPHINE SULFATE 2 MG/ML VIAL IVPUSH PRN (20:00)
[2019-06-29] MEDS ORDERED: SENNOSIDES/DOCUSATE COMBO (SENNA PLUS) TABLET (UD) PO SCH (22:00)
[2019-06-30] MEDS: POTASSIUM CHLORIDE 10 MEQ in DEXTROSE 5%-NORMAL SALINE 1,000 ML IVPB SCH ×2 (03:00→11:19)
[2019-06-30] MEDS: HEPARIN NA (PORCINE) 5,000 UNITS/ML 1ML VIAL SQ SCH ×3 (06:03→21:38)
[2019-06-30] MEDS: MORPHINE SULFATE 2 MG/ML VIAL IVPUSH PRN (09:08)
[2019-06-30] MEDS: BUDESONIDE/FORMETEROL FUMARATE 80/4.5 mcg INHALER IH SCH ×2 (09:35→21:41)
--- NOTE | 2019-06-30 12:16 | PN ---
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 He had CT showing high-grade partial SBO, with contrast and air into colon, but proximal dilated, fluid-filled small bowel and nondilated distal SB. He has had multiple BMs since then, and is feeling better overall. Minimal discomfort only around umbilicus/under scar. He is passing gas. He is seen and examined in bed. He denies nausea and did have a BM this morning. He started on clears last night and is tolerating thus far. I spoke with his daughter last night by phone to update her and answer questions. - Current Medication List Current Medications: Active Medications Budesonide/Formoterol Fumarate (Symbicort 80/4.5mcg -) 2 puff IH BID [facility] Last Admin: 06/30/19 09:35 Dose: 2 inh Heparin Sodium (Porcine) (Heparin -) 5,000 unit SQ TID [facility] Last Admin: 06/30/19 06:03 Dose: 5,000 unit Potassium Chloride 10 meq/ (Dextrose/Sodium Chloride) 1,005 mls @ 83 mls/hr IVPB Q12H [facility] Last Admin: 06/30/19 11:19 Dose: 83 mls/hr Morphine Sulfate (Morphine Sulfate) 2 mg IVPUSH Q4H PRN PRN Reason: PAIN LEVEL 7 - 10 Last Admin: 06/30/19 09:08 Dose: 2 mg Prochlorperazine Edisylate (Compazine Injection -) 5 mg IVPB Q4H PRN PRN Reason: NAUSEA Last Admin: 06/28/19 16:11 Dose: 5 mg - Objective Vital Signs: Vital Signs Temperature 98.9 F 06/30/19 10:00 Pulse Rate 71 06/30/19 10:00 Respiratory Rate 16 06/30/19 10:00 Blood Pressure 134/70 06/30/19 10:00 O2 Sat by Pulse Oximetry (%) 97 06/29/19 21:00 Constitutional: Yes: No Distress, Calm, Thin Eyes: Yes: Conjunctiva Clear, EOM Intact HENT: Yes: Atraumatic, Normocephalic Gastrointestinal: Yes: Soft, Hernia (fascial gap palpable under midline scar periumbilically), Tenderness (minimal under midline scar/periumbilical). No: Distention (minimal, + tympany) Extremities: No: Cool, Cyanosis Integumentary: No: Jaundice, Rash Neurological: Yes: Alert, Oriented Labs: no new labs Problem List - Problems (1) Small bowel obstruction due to adhesions Code(s): K56.50 - INTESTNL ADHESIONS, UNSP TO PARTIAL VERSUS COMPLETE OBST (2) Periumbilical pain Code(s): R10.33 - PERIUMBILICAL PAIN (3) Nausea and vomiting Code(s): R11.2 - NAUSEA WITH VOMITING, UNSPECIFIED Qualifiers: Vomiting type: unspecified Vomiting Intractability: non-intractable Qualified Code(s): R11.2 - Nausea with vomiting, unspecified (4) Dehydration Code(s): E86.0 - DEHYDRATION (5) Constipation due to opioid therapy Code(s): K59.03 - DRUG INDUCED CONSTIPATION; T40.2X5A - ADVERSE EFFECT OF OTHER OPIOIDS, INITIAL ENCOUNTER (6) Cachexia Code(s): R64 - CACHEXIA (7) COPD (chronic obstructive pulmonary disease) Code(s): J44.9 - CHRONIC OBSTRUCTIVE PULMONARY DISEASE, UNSPECIFIED Qualifiers: COPD type: unspecified COPD Qualified Code(s): J44.9 - Chronic obstructive pulmonary disease, unspecified (8) Hepatitis C, chronic Code(s): B18.2 - CHRONIC VIRAL HEPATITIS C Qualifiers: Hepatic coma status: without hepatic coma Qualified Code(s): B18.2 - Chronic viral hepatitis C Assessment/Plan recurrent/persistent partial SBO, likely with chronic component discussed with patient and daughter that this may not be fully relieved/ corrected without surgery at some point, but that it is not an emergency right now operation may have benefit of relieving obstruction, but also carries risks of intestinal injury, new/increasing scar tissue, continued risk of future obstruction(s) Pt is reluctant to have operation until/unless it becomes unavoidable. Tolerating clear liquids thus far. If still ok by dinnertime, could advance to full liquids for dinner or breakfast. Would not advance past that for at least 24-36 hrs. May need to go home on more liquid/?pureed diet options add nutritional supplements (Ensure) pt to get his dentures brought to him could d/c IV fluids discussed with water control supervisor
--- NOTE | 2019-06-30 15:25 | PN ---
Physical Exam: SUBJECTIVE: Patient seen and examined at bedside. denies n/v. states abdominal pain is improved. OBJECTIVE: Vital Signs Period Temp Pulse Resp BP Sys/Monsalve Pulse Ox Last 24 Hr 97.8 F-98.9 F 63-79 16-18 103-134/53-70 97-98 GENERAL: The patient is awake, alert, and fully oriented, in no acute distress.Thin male HEAD: Normal with no signs of trauma. LUNGS: Breath sounds equal, clear to auscultation bilaterally, no wheezes, no crackles, no accessory muscle use. HEART: Regular rate and rhythm, S1, S2 without murmur, rub or gallop. ABDOMEN: Soft, tender to palpation around umbilical, nondistended, normoactive bowel sounds, no guarding EXTREMITIES: 2+ pulses, warm, well-perfused, no edema. SKIN: Warm, dry, normal turgor, no rashes or lesions noted RECTAL: No stool in vault, good sphincter tone, no external hemorrhoids visualized, no internal hemorrhoids felt, no active bleeding noted, no blood on the tip of glove. stool noted in diaper. Current Medications Budesonide/Formoterol Fumarate (Symbicort 80/4.5mcg -) 2 puff IH BID [facility] Last Admin: 06/30/19 09:35 Dose: 2 inh Heparin Sodium (Porcine) (Heparin -) 5,000 unit SQ TID [facility] Last Admin: 06/30/19 13:06 Dose: 5,000 unit Morphine Sulfate (Morphine Sulfate) 2 mg IVPUSH Q4H PRN PRN Reason: PAIN LEVEL 7 - 10 Last Admin: 06/30/19 09:08 Dose: 2 mg Prochlorperazine Edisylate (Compazine Injection -) 5 mg IVPB Q4H PRN PRN Reason: NAUSEA Last Admin: 06/28/19 16:11 Dose: 5 mg ASSESSMENT/PLAN: 68 yo M PMH of COPD ( not on home O2) , Hep C ( unTx), recurrent SBO ( s/p ex lap 10/22) presented to [facility] with Abdominal pain, n/v. pt found to have SBO. Acute SBO - clear diet, continue for 24-48 hours. advance to full liquids tomorrow -Surg recs (Dr. Rudolph)appreciated -compazine for nausea - morphine for pain, hold gapapentin and oxy while npo -XR flat and upright reviewed - CT abdomen pelvis reviewed COPD - stable -c/w advair - incentive spirometry - passed Pre- post yesterday Hx of LBP - morphine, will hold neurotin and oxy -PT eval Severe malnutrition - will give ensure DVT ppx: Heparin Dispo: Med/ Surg Visit type - Emergency Visit Emergency Visit: No - New Patient This patient is new to me today: No - Critical Care Critical Care patient: No - Discharge Referral Referred to [facility] Med P.C.: No ATTENDING PHYSICIAN STATEMENT I saw and evaluated the patient. I reviewed the resident's note and discussed the case with the resident. I agree with the resident's findings and plan as documented. SUBJECTIVE: OBJECTIVE: ASSESSMENT AND PLAN:
--- NOTE | 2019-06-30 18:04 | PN ---
Teaching Attending Note Name of Resident: Monica Fernández ATTENDING PHYSICIAN STATEMENT I saw and evaluated the patient. I reviewed the resident's note and discussed the case with the resident. I agree with the resident's findings and plan as documented. SUBJECTIVE: no fever or chills. no abd pain , no N/V.feels much better OBJECTIVE: NAD, awake, alert, cooperative. cachectic, pleasant. CV: RRR, no MRG Lungs: CTAB Abd: ND. Abd is soft, .minimal TTP in L periumbilical area. NL BS Ext: No edema or erythema on upper or lower extremities . Assessment /Plan: 68 y/o man with h/o COPD, not on O2 , s/p appendectomy, untreated hepatitis C, recurrent SBO with last ex-lap with lysis of adhesions in 10/22 , and recent admission for SBO ( conservative management , d/c on 06/25/19) who presented with abd pain, and N/V andwas found to have acute SBO 1- Recurrent SBO. improved. - full liquid diet - dc morphine. give low dose oxy 2.5 mg for lower back pain and abd pain 2- H/o COPD: cont inhalers. 3- H/o lower back pain: resume neurontin low dose oxy HLOC
[2019-06-30] MEDS: traZODone HCL 50 MG TABLET (FP) PO PRN (21:38)
[2019-06-30] MEDS: GABAPENTIN 300 MG CAPSULE PO SCH ×2 (21:38→21:42)
[2019-07-01] MEDS: HEPARIN NA (PORCINE) 5,000 UNITS/ML 1ML VIAL SQ SCH ×3 (05:51→21:46)
[2019-07-01] MEDS: oxyCODONE HCL 5 MG TABLET PO PRN (08:49)
[2019-07-01] MEDS: BUDESONIDE/FORMETEROL FUMARATE 80/4.5 mcg INHALER IH SCH ×2 (09:46→21:47)
--- NOTE | 2019-07-01 19:02 | PN ---
Physical Exam: SUBJECTIVE: Patient seen and examined at bedside. pt has no complaints. pt denies n/v. pt states he is passing flatus but no BM OBJECTIVE: Vital Signs Period Temp Pulse Resp BP Sys/Monsalve Pulse Ox Last 24 Hr 98.1 F-98.3 F 61-74 18-20 100-128/55-93 98-98 GENERAL: The patient is awake, alert, and fully oriented, in no acute distress. LUNGS: Breath sounds equal, clear to auscultation bilaterally, no wheezes, no crackles, no accessory muscle use. HEART: Regular rate and rhythm, S1, S2 without murmur, rub or gallop. ABDOMEN: Soft, nontender, nondistended, + bowel sounds, no guarding EXTREMITIES: 2+ pulses, warm, well-perfused, no edema. SKIN: Warm, dry, normal turgor, no rashes or lesions noted Current Medications Budesonide/Formoterol Fumarate (Symbicort 80/4.5mcg -) 2 puff IH BID [facility] Last Admin: 07/01/19 09:46 Dose: 2 puff Gabapentin (Neurontin -) 300 mg PO HS [facility] Last Admin: 06/30/19 21:42 Dose: Not Given Heparin Sodium (Porcine) (Heparin -) 5,000 unit SQ TID [facility] Last Admin: 07/01/19 13:05 Dose: Not Given Oxycodone HCl (Roxicodone -) 2.5 mg PO Q6H PRN PRN Reason: PAIN LEVEL 6-10 Last Admin: 07/01/19 08:49 Dose: 2.5 mg Prochlorperazine Edisylate (Compazine Injection -) 5 mg IVPB Q4H PRN PRN Reason: NAUSEA Last Admin: 06/28/19 16:11 Dose: 5 mg Trazodone HCl (Desyrel -) 50 mg PO HS PRN PRN Reason: INSOMNIA Last Admin: 06/30/19 21:38 Dose: 50 mg ASSESSMENT/PLAN: 68 yo M PMH of COPD ( not on home O2) , Hep C ( unTx), recurrent SBO ( s/p ex lap 10/22) presented to [facility] with Abdominal pain, n/v. pt found to have SBO. Acute SBO - on full liquids -Surg recs (Dr. Rudolph)appreciated -compazine for nausea - morphine for pain, hold gapapentin and oxy while npo -XR flat and upright reviewed - CT abdomen pelvis reviewed COPD - stable -c/w advair - incentive spirometry - passed Pre- post Hx of LBP - morphine, will hold neurotin and oxy -PT eval Severe malnutrition - will give ensure DVT ppx: Heparin Dispo: Med/ Surg Visit type - Emergency Visit Emergency Visit: No - New Patient This patient is new to me today: No - Critical Care Critical Care patient: No - Discharge Referral Referred to [facility] Med P.C.: No ATTENDING PHYSICIAN STATEMENT I saw and evaluated the patient. I reviewed the resident's note and discussed the case with the resident. I agree with the resident's findings and plan as documented. SUBJECTIVE: OBJECTIVE: ASSESSMENT AND PLAN:
--- NOTE | 2019-07-01 19:19 | PN ---
Teaching Attending Note Name of Resident: Monica Fernández ATTENDING PHYSICIAN STATEMENT I saw and evaluated the patient. I reviewed the resident's note and discussed the case with the resident. I agree with the resident's findings and plan as documented. SUBJECTIVE: seen around 12 pm, No fever or chills. no abd pain. No N/V OBJECTIVE: NAD, awake, alert, cooperative. cachectic, pleasant. CV: RRR, no MRG Lungs: CTAB Abd: ND. Abd is soft, .NT. hyperactive BS Ext: No edema or erythema on upper or lower extremities . Assessment /Plan: 68 y/o man with h/o COPD, not on O2 , s/p appendectomy, untreated hepatitis C, recurrent SBO with last ex-lap with lysis of adhesions in 10/22 , and recent admission for SBO ( conservative management , d/c on 06/25/19) who presented with abd pain, and N/V andwas found to have acute SBO 1- Recurrent SBO. - Cont full liquid diet - cont low dose oxy 2.5 mg for lower back pain and abd pain 2- H/o COPD: cont inhalers. 3- H/o lower back pain: cont neurontin low dose oxy HLOC
[2019-07-01] MEDS: traZODone HCL 50 MG TABLET (FP) PO PRN (21:45)
[2019-07-01] MEDS: GABAPENTIN 300 MG CAPSULE PO SCH (21:49)
--- NOTE | 2019-07-01 23:25 | PN ---
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 He had CT showing high-grade partial SBO, with contrast and air into colon, but proximal dilated, fluid-filled small bowel and nondilated distal SB. He has had multiple BMs since then, though none today. He is seen and examined in bed. He denies nausea or pain and is tolerating full liquids today. His daughter is supposed to bring him his dentures tomorrow. - Current Medication List Current Medications: Active Medications Budesonide/Formoterol Fumarate (Symbicort 80/4.5mcg -) 2 puff IH BID [facility] Last Admin: 07/01/19 21:47 Dose: 2 puff Gabapentin (Neurontin -) 300 mg PO HS [facility] Last Admin: 07/01/19 21:49 Dose: Not Given Heparin Sodium (Porcine) (Heparin -) 5,000 unit SQ TID [facility] Last Admin: 07/01/19 21:46 Dose: 5,000 unit Oxycodone HCl (Roxicodone -) 2.5 mg PO Q6H PRN PRN Reason: PAIN LEVEL 6-10 Last Admin: 07/01/19 08:49 Dose: 2.5 mg Prochlorperazine Edisylate (Compazine Injection -) 5 mg IVPB Q4H PRN PRN Reason: NAUSEA Last Admin: 06/28/19 16:11 Dose: 5 mg Trazodone HCl (Desyrel -) 50 mg PO HS PRN PRN Reason: INSOMNIA Last Admin: 07/01/19 21:45 Dose: 50 mg - Objective Vital Signs: Vital Signs Temperature 98.3 F 07/01/19 21:50 Pulse Rate 62 07/01/19 21:50 Respiratory Rate 18 07/01/19 21:50 Blood Pressure 115/76 07/01/19 21:50 O2 Sat by Pulse Oximetry (%) 98 07/01/19 09:00 Constitutional: Yes: No Distress, Calm, Thin Eyes: Yes: Conjunctiva Clear, EOM Intact HENT: Yes: Atraumatic, Normocephalic Gastrointestinal: Yes: Normal Bowel Sounds, Soft, Distention (mild/minimal, + tympany), Hernia (fascial gap palpable under midline/periumbilical scar). No: Tenderness Extremities: No: Cool, Cyanosis Integumentary: No: Jaundice, Rash Neurological: Yes: Alert, Oriented Labs: no new labs Problem List - Problems (1) Small bowel obstruction due to adhesions Code(s): K56.50 - INTESTNL ADHESIONS, UNSP TO PARTIAL VERSUS COMPLETE OBST (2) Periumbilical pain Code(s): R10.33 - PERIUMBILICAL PAIN (3) Nausea and vomiting Code(s): R11.2 - NAUSEA WITH VOMITING, UNSPECIFIED Qualifiers: Vomiting type: unspecified Vomiting Intractability: non-intractable Qualified Code(s): R11.2 - Nausea with vomiting, unspecified (4) Dehydration Code(s): E86.0 - DEHYDRATION (5) Constipation due to opioid therapy Code(s): K59.03 - DRUG INDUCED CONSTIPATION; T40.2X5A - ADVERSE EFFECT OF OTHER OPIOIDS, INITIAL ENCOUNTER (6) Cachexia Code(s): R64 - CACHEXIA (7) COPD (chronic obstructive pulmonary disease) Code(s): J44.9 - CHRONIC OBSTRUCTIVE PULMONARY DISEASE, UNSPECIFIED Qualifiers: COPD type: unspecified COPD Qualified Code(s): J44.9 - Chronic obstructive pulmonary disease, unspecified (8) Hepatitis C, chronic Code(s): B18.2 - CHRONIC VIRAL HEPATITIS C Qualifiers: Hepatic coma status: without hepatic coma Qualified Code(s): B18.2 - Chronic viral hepatitis C Assessment/Plan recurrent/persistent partial SBO, likely with chronic component discussed with patient and daughter that this may not be fully relieved/ corrected without surgery at some point, but that it is not an emergency right now operation may have benefit of relieving obstruction, but also carries risks of intestinal injury, new/increasing scar tissue, continued risk of future obstruction(s) Pt is reluctant to have operation until/unless it becomes unavoidable. Tolerating full liquids today without nausea or pain. Would not advance until patient has his dentures. Consider pureed/chopped diet before regular? May need to go home on more liquid/pureed/chopped diet options.. continue nutritional supplements (Ensure) - recommend at home also encourage OOB/sitting up in chair frequently ambulate with walker and assistance more than once a day, PT following
[2019-07-02] MEDS: HEPARIN NA (PORCINE) 5,000 UNITS/ML 1ML VIAL SQ SCH ×3 (05:35→21:15)
--- NOTE | 2019-07-02 09:01 | PN ---
Physical Exam: SUBJECTIVE: Patient seen and examined at bedside. pt has no acute complaints. denies n/v. OBJECTIVE: Vital Signs Period Temp Pulse Resp BP Sys/Monsalve Pulse Ox Last 24 Hr 98.2 F-98.6 F 60-64 18-20 104-126/67-76 98 GENERAL: The patient is awake, alert, and fully oriented, in no acute distress. HEAD: Normal with no signs of trauma. LUNGS: Breath sounds equal, clear to auscultation bilaterally, no wheezes, no crackles, no accessory muscle use. HEART: Regular rate and rhythm, S1, S2 without murmur, rub or gallop. ABDOMEN: Soft, nontender, nondistended, normoactive bowel sounds, no guarding EXTREMITIES: 2+ pulses, warm, well-perfused, no edema. ct. SKIN: Warm, dry, normal turgor, no rashes or lesions noted Current Medications Budesonide/Formoterol Fumarate (Symbicort 80/4.5mcg -) 2 puff IH BID [facility] Last Admin: 07/01/19 21:47 Dose: 2 puff Gabapentin (Neurontin -) 300 mg PO HS [facility] Last Admin: 07/01/19 21:49 Dose: Not Given Heparin Sodium (Porcine) (Heparin -) 5,000 unit SQ TID [facility] Last Admin: 07/02/19 05:35 Dose: 5,000 unit Oxycodone HCl (Roxicodone -) 2.5 mg PO Q6H PRN PRN Reason: PAIN LEVEL 6-10 Last Admin: 07/01/19 08:49 Dose: 2.5 mg Prochlorperazine Edisylate (Compazine Injection -) 5 mg IVPB Q4H PRN PRN Reason: NAUSEA Last Admin: 06/28/19 16:11 Dose: 5 mg Trazodone HCl (Desyrel -) 50 mg PO HS PRN PRN Reason: INSOMNIA Last Admin: 07/01/19 21:45 Dose: 50 mg ASSESSMENT/PLAN: 68 yo M PMH of COPD ( not on home O2) , Hep C ( unTx), recurrent SBO ( s/p ex lap 10/22) presented to [facility] with Abdominal pain, n/v. pt found to have SBO. Acute SBO - on puree today, will advance chopped for breakfast if pt has dentures. will avoid soda in diet! -Surg recs (Dr. Rudolph)appreciated -compazine for nausea - c/w gapapentin and oxy -XR flat and upright reviewed - CT abdomen pelvis reviewed COPD - stable -c/w advair - incentive spirometry - passed Pre- post Hx of LBP - continue neurotin and oxy, oxy at 2.5 lower than home dose -PT eval Severe malnutrition - will give ensure DVT ppx: Heparin Dispo: Med/ Surg Visit type - Emergency Visit Emergency Visit: No - New Patient This patient is new to me today: No - Critical Care Critical Care patient: No - Discharge Referral Referred to [facility] Med P.C.: No ATTENDING PHYSICIAN STATEMENT I saw and evaluated the patient. I reviewed the resident's note and discussed the case with the resident. I agree with the resident's findings and plan as documented. SUBJECTIVE: OBJECTIVE: ASSESSMENT AND PLAN:
--- NOTE | 2019-07-02 09:06 | PN ---
Teaching Attending Note Name of Resident: Monica Fernández ATTENDING PHYSICIAN STATEMENT I saw and evaluated the patient. I reviewed the resident's note and discussed the case with the resident. I agree with the resident's findings and plan as documented. SUBJECTIVE: Patient is npo for recurrent SBO. nice gentleman. Vital Signs Temperature 98.3 F 07/02/19 06:04 Pulse Rate 64 07/02/19 06:04 Respiratory Rate 18 07/02/19 06:04 Blood Pressure 104/67 07/02/19 06:04 O2 Sat by Pulse Oximetry (%) 98 07/01/19 21:00 GENERAL: The patient is awake, alert, and fully oriented, in no acute distress. HEAD: Normal with no signs of trauma. EYES: PERRL, extraocular movements intact, sclera anicteric, conjunctiva clear. ENT: Ears normal, oropharynx clear without exudates, moist mucous membranes. NECK: Trachea midline, full range of motion, supple. LUNGS: Breath sounds equal, clear to auscultation bilaterally, no wheezes, no crackles, no accessory muscle use. HEART: Regular rate and rhythm, S1, S2 without murmur, rub or gallop. ABDOMEN: Soft, mild tenderness , hypoactive BS, no guarding, no rebound, no hepatosplenomegaly, no masses. EXTREMITIES: 2+ pulses, warm, well-perfused, no edema. NEUROLOGICAL: Cranial nerves II through XII grossly intact. Normal speech, gait not observed. PSYCH: Normal mood, normal affect. SKIN: Warm, dry, normal turgor, no rashes or lesions noted CBCD WBC 4.9 K/mm3 (4.0-10.0) 06/29/19 07:20 RBC 3.65 M/mm3 (4.00-5.60) L 06/29/19 07:20 Hgb 10.1 GM/dL (11.7-16.9) L 06/29/19 07:20 Hct 30.6 % (35.4-49) L D 06/29/19 07:20 MCV 83.7 fl (80-96) 06/29/19 07:20 MCHC 33.1 g/dl (32.0-35.9) 06/29/19 07:20 RDW 15.8 % (11.9-15.9) 06/29/19 07:20 Plt Count 210 K/MM3 (134-434) D 06/29/19 07:20 MPV 8.3 fl (7.5-11.1) 06/29/19 07:20 CMP Sodium 140 mmol/L (136-145) 06/29/19 07:20 Potassium 4.3 mmol/L (3.5-5.1) 06/29/19 07:20 Chloride 109 mmol/L (98-107) H 06/29/19 07:20 Carbon Dioxide 27 mmol/L (21-32) 06/29/19 07:20 Anion Gap 4 MMOL/L (8-16) L 06/29/19 07:20 BUN 20.4 mg/dL (7-18) H 06/29/19 07:20 Creatinine 1.0 mg/dL (0.55-1.3) 06/29/19 07:20 Random Glucose 92 mg/dL (74-106) 06/29/19 07:20 Calcium 8.3 mg/dL (8.5-10.1) L 06/29/19 07:20 Total Bilirubin 0.4 mg/dL (0.2-1) 06/28/19 05:54 AST 25 U/L (15-37) 06/28/19 05:54 ALT 18 U/L (13-61) 06/28/19 05:54 Alkaline Phosphatase 56 U/L (45-117) 06/28/19 05:54 Total Protein 8.4 g/dl (6.4-8.2) H 06/28/19 05:54 Albumin 4.2 g/dl (3.4-5.0) 06/28/19 05:54 Current Medications Generic Name Dose Route Start Last Admin Trade Name Freq PRN Reason Stop Dose Admin Budesonide/Formoterol Fumarate 2 puff 06/29/19 10:00 07/01/19 21:47 Symbicort 80/4.5mcg - IH 2 puff BID [facility] Administration Gabapentin 300 mg 06/30/19 22:00 07/01/19 21:49 Neurontin - PO Not Given HS [facility] Heparin Sodium (Porcine) 5,000 unit 06/28/19 22:00 07/02/19 05:35 Heparin - SQ 5,000 unit TID [facility] Administration Oxycodone HCl 2.5 mg 06/30/19 18:01 07/01/19 08:49 Roxicodone - PO 2.5 mg Q6H PRN Administration PAIN LEVEL 6-10 Prochlorperazine Edisylate 5 mg 06/28/19 12:19 06/28/19 16:11 Compazine Injection - IVPB 5 mg Q4H PRN Administration NAUSEA Trazodone HCl 50 mg 06/30/19 22:00 07/01/19 21:45 Desyrel - PO 50 mg HS PRN Administration INSOMNIA Home Medications Medication Instructions Recorded Ipratropium/Albuterol Sulfate 4 gm IH BID 10/13/17 [Combivent Respimat 20-100 Mcg] Fluticasone/Salmeterol [Advair 1 each IH BID 06/15/19 250-50 Diskus] Gabapentin [Neurontin] 300 mg PO HS 06/15/19 Megestrol Acetate Oral Susp 400 mg PO BID 06/15/19 [Megace Oral Suspension -] Oxycodone HCl 10 mg PO BID PRN 06/15/19 Tizanidine HCl 2 mg PO BID PRN 06/15/19 traZODone HCL [Trazodone HCl] 50 mg PO HS PRN 06/15/19 Docusate Sodium [Colace -] 100 mg PO BID #60 capsule 06/26/19 Polyethylene Glycol 3350 [Miralax 17 gm PO DAILY #1 bottle 06/27/19 (For Daily Use) -] Doxepin HCl 75 mg PO 06/30/19 Mirtazapine 30 mg PO 06/30/19 Assessment and plan: Patient is a 68yo m with Pmhx of COPD s/p appendectomy, untreated hepatitis C, recurrent SBO with last ex-lap with lysis of adhesions in 10/22 , and recent admission for SBO ( conservative management , d/c on 06/25/19) who presented with abd pain, and N/V and was found to have acute SBO # Recurrent SBO. Cont full liquid diet - cont low dose oxy 2.5 mg for lower back pain and abd pain # H/o COPD: cont inhalers. # H/o lower back pain: on oxy low dose , cont neurontin as per surgeon not to be on any pain meds. DVt Px: Heparin
[2019-07-02] MEDS ORDERED: PT OWN MED DRAWER 7, Y5N ONE (09:43)
[2019-07-02] MEDS: oxyCODONE HCL 5 MG TABLET PO PRN ×2 (09:47→15:57)
[2019-07-02] MEDS: BUDESONIDE/FORMETEROL FUMARATE 80/4.5 mcg INHALER IH SCH ×2 (10:15→21:15)
--- NOTE | 2019-07-02 15:36 | PN ---
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 He had CT showing high-grade partial SBO, with contrast and air into colon, but proximal dilated, fluid-filled small bowel and nondilated distal SB. He has had multiple BMs since then, including a large one shortly ago. He is seen and examined in bed. He denies nausea or pain and has been tolerating full liquids. His daughter is supposed to bring him his dentures, will be here after dinnertime. Per nurse, he was ambulated with his walker but got easily short of breath. - Current Medication List Current Medications: Active Medications Budesonide/Formoterol Fumarate (Symbicort 80/4.5mcg -) 2 puff IH BID [facility]ILY Last Admin: 07/02/19 10:15 Dose: 2 puff Gabapentin (Neurontin -) 300 mg PO HS [facility]ILY Last Admin: 07/01/19 21:49 Dose: Not Given Heparin Sodium (Porcine) (Heparin -) 5,000 unit SQ TID [facility]ILY Last Admin: 07/02/19 05:35 Dose: 5,000 unit Oxycodone HCl (Roxicodone -) 2.5 mg PO Q6H PRN PRN Reason: PAIN LEVEL 6-10 Last Admin: 07/02/19 09:47 Dose: 2.5 mg Prochlorperazine Edisylate (Compazine Injection -) 5 mg IVPB Q4H PRN PRN Reason: NAUSEA Last Admin: 06/28/19 16:11 Dose: 5 mg Trazodone HCl (Desyrel -) 50 mg PO HS PRN PRN Reason: INSOMNIA Last Admin: 07/01/19 21:45 Dose: 50 mg - Objective Vital Signs: Vital Signs Temperature 98.3 F 07/02/19 13:18 Pulse Rate 71 07/02/19 13:18 Respiratory Rate 20 07/02/19 13:18 Blood Pressure 92/66 07/02/19 13:18 O2 Sat by Pulse Oximetry (%) 98 07/01/19 21:00 Constitutional: Yes: No Distress, Calm, Thin Eyes: Yes: Conjunctiva Clear, EOM Intact HENT: Yes: Atraumatic, Normocephalic Gastrointestinal: Yes: Normal Bowel Sounds, Soft, Distention (mild, + tympany), Hernia (fascial gap palpable at midline scar). No: Tenderness Extremities: No: Cool, Cyanosis Integumentary: No: Jaundice, Rash Neurological: Yes: Alert, Oriented Labs: no new labs Problem List - Problems (1) Small bowel obstruction due to adhesions Code(s): K56.50 - INTESTNL ADHESIONS, UNSP TO PARTIAL VERSUS COMPLETE OBST (2) Periumbilical pain Code(s): R10.33 - PERIUMBILICAL PAIN (3) Nausea and vomiting Code(s): R11.2 - NAUSEA WITH VOMITING, UNSPECIFIED Qualifiers: Vomiting type: unspecified Vomiting Intractability: non-intractable Qualified Code(s): R11.2 - Nausea with vomiting, unspecified (4) Dehydration Code(s): E86.0 - DEHYDRATION (5) Constipation due to opioid therapy Code(s): K59.03 - DRUG INDUCED CONSTIPATION; T40.2X5A - ADVERSE EFFECT OF OTHER OPIOIDS, INITIAL ENCOUNTER (6) Cachexia Code(s): R64 - CACHEXIA (7) COPD (chronic obstructive pulmonary disease) Code(s): J44.9 - CHRONIC OBSTRUCTIVE PULMONARY DISEASE, UNSPECIFIED Qualifiers: COPD type: unspecified COPD Qualified Code(s): J44.9 - Chronic obstructive pulmonary disease, unspecified (8) Hepatitis C, chronic Code(s): B18.2 - CHRONIC VIRAL HEPATITIS C Qualifiers: Hepatic coma status: without hepatic coma Qualified Code(s): B18.2 - Chronic viral hepatitis C Assessment/Plan recurrent/persistent partial SBO, likely with chronic component discussed with patient and daughter that this may not be fully relieved/ corrected without surgery at some point, but that it is not an emergency right now operation may have benefit of relieving obstruction, but also carries risks of intestinal injury, new/increasing scar tissue, continued risk of future obstruction(s) Pt is reluctant to have operation until/unless it becomes unavoidable. Tolerating full liquids without nausea or pain. Will give pureed diet for dinner tonight. Once dentures are here, primary team can advance to chopped/regular diet. Would specify NO carbonated drinks/soda. May be able go home on more liquid/pureed/chopped diet options, but would not d/ c until he has tolerated for at least 24-36 hours. continue nutritional supplements (Ensure) - recommend at home also encourage OOB/sitting up in chair frequently ambulate with walker and assistance more than once a day, PT following reinforced to patient that if nausea recurs, he should stop eating and tell someone if his symptoms recur at home, he should come back to a hospital sooner than later he understands and agrees
[2019-07-02] MEDS: GABAPENTIN 300 MG CAPSULE PO SCH (21:16)
[2019-07-03] MEDS: HEPARIN NA (PORCINE) 5,000 UNITS/ML 1ML VIAL SQ SCH ×3 (06:33→21:25)
--- NOTE | 2019-07-03 06:45 | PN ---
Physical Exam: SUBJECTIVE: Patient seen and examined at bedside. pt denies abdominal pain , n/ v. had one BM last night. states he is having back pain. OBJECTIVE: Vital Signs Period Temp Pulse Resp BP Sys/Monsalve Pulse Ox Last 24 Hr 97.6 F-98.3 F 66-84 15-20 92-115/64-69 96-98 GENERAL: The patient is awake, alert, and fully oriented, in no acute distress. LUNGS: Breath sounds equal, clear to auscultation bilaterally, no accessory muscle use. HEART: Regular rate and rhythm, S1, S2 ABDOMEN: Soft, nontender, nondistended, normoactive bowel sounds, no guarding EXTREMITIES: 2+ pulses, warm, well-perfused, no edema. SKIN: Warm, dry, normal turgor, no rashes or lesions noted Current Medications Budesonide/Formoterol Fumarate (Symbicort 80/4.5mcg -) 2 puff IH BID [facility] Last Admin: 07/02/19 21:15 Dose: 2 puff Gabapentin (Neurontin -) 300 mg PO HS [facility] Last Admin: 07/02/19 21:16 Dose: Not Given Heparin Sodium (Porcine) (Heparin -) 5,000 unit SQ TID [facility]ILY Last Admin: 07/03/19 06:33 Dose: 5,000 unit Oxycodone HCl (Roxicodone -) 2.5 mg PO Q6H PRN PRN Reason: PAIN LEVEL 6-10 Last Admin: 07/02/19 15:57 Dose: 2.5 mg Prochlorperazine Edisylate (Compazine Injection -) 5 mg IVPB Q4H PRN PRN Reason: NAUSEA Last Admin: 06/28/19 16:11 Dose: 5 mg Trazodone HCl (Desyrel -) 50 mg PO HS PRN PRN Reason: INSOMNIA Last Admin: 07/01/19 21:45 Dose: 50 mg ASSESSMENT/PLAN: 68 yo M PMH of COPD ( not on home O2) , Hep C ( unTx), recurrent SBO ( s/p ex lap 10/22) presented to [facility] with Abdominal pain, n/v. pt found to have SBO. Acute SBO - diet advanced to chopped, low residue and no soda as pt has dentures now. -Surg recs (Dr. Rudolph)appreciated -compazine for nausea - c/w gapapentin and oxy -XR flat and upright reviewed - CT abdomen pelvis reviewed COPD - stable -c/w advair - incentive spirometry - passed Pre- post Hx of LBP - continue neurotin and oxy, oxy at 2.5 lower than home dose -PT eval Severe malnutrition - will give ensure DVT ppx: Heparin Dispo: Med/ Surg Visit type - Emergency Visit Emergency Visit: No - New Patient This patient is new to me today: No - Critical Care Critical Care patient: No - Discharge Referral Referred to [facility] No ATTENDING PHYSICIAN STATEMENT I saw and evaluated the patient. I reviewed the resident's note and discussed the case with the resident. I agree with the resident's findings and plan as documented. SUBJECTIVE: OBJECTIVE: ASSESSMENT AND PLAN:
[2019-07-03 07:18] LABS: HEMATOCRIT 34.1 % (35.4-49); HEMOGLOBIN 11.3 GM/dL (11.7-16.9); MCH 27.7 pg (25.7-33.7); MCHC 33.2 g/dl (32.0-35.9); MEAN CELL VOLUME 83.5 fl (80-96); MEAN PLT VOLUME 8.4 fl (7.5-11.1); PLATELET COUNT 302 K/MM3 (134-434); RBC 4.08 M/mm3 (4.00-5.60); RDW 15.9 % (11.9-15.9); WHITE BLOOD COUNT 5.8 K/mm3 (4.0-10.0)
[2019-07-03] MEDS: BUDESONIDE/FORMETEROL FUMARATE 80/4.5 mcg INHALER IH SCH ×2 (09:53→21:25)
[2019-07-03] MEDS: oxyCODONE HCL 5 MG TABLET PO PRN (11:07)
--- NOTE | 2019-07-03 17:33 | PN ---
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 He had CT showing high-grade partial SBO, with contrast and air into colon, but proximal dilated, fluid-filled small bowel and nondilated distal SB. He has had multiple BMs since then, including one today. He is seen and examined in bed with daughter and granddaughter present. He denies nausea or pain and has been tolerating pureed diet. Now has dentures, just getting chopped diet for dinner now. - Current Medication List Current Medications: Active Medications Budesonide/Formoterol Fumarate (Symbicort 80/4.5mcg -) 2 puff IH BID [facility] Last Admin: 07/03/19 09:53 Dose: 2 puff Gabapentin (Neurontin -) 300 mg PO HS [facility] Last Admin: 07/02/19 21:16 Dose: Not Given Heparin Sodium (Porcine) (Heparin -) 5,000 unit SQ TID [facility] Last Admin: 07/03/19 13:26 Dose: 5,000 unit Melatonin (Melatonin) 3 mg PO HS [facility] Oxycodone HCl (Roxicodone -) 2.5 mg PO Q6H PRN PRN Reason: PAIN LEVEL 6-10 Last Admin: 07/03/19 11:07 Dose: 2.5 mg Prochlorperazine Edisylate (Compazine Injection -) 5 mg IVPB Q4H PRN PRN Reason: NAUSEA Last Admin: 06/28/19 16:11 Dose: 5 mg Trazodone HCl (Desyrel -) 50 mg PO HS PRN PRN Reason: INSOMNIA Last Admin: 07/01/19 21:45 Dose: 50 mg - Objective Vital Signs: Vital Signs Temperature 97.7 F 07/03/19 14:04 Pulse Rate 78 07/03/19 14:04 Respiratory Rate 20 07/03/19 14:04 Blood Pressure 111/64 07/03/19 14:04 O2 Sat by Pulse Oximetry (%) 95 07/03/19 09:00 Constitutional: Yes: No Distress, Calm, Thin Eyes: Yes: Conjunctiva Clear, EOM Intact HENT: Yes: Atraumatic, Normocephalic Gastrointestinal: Yes: Soft, Distention (mild, + tympany), Hernia (fascial gap palpable in midline scar). No: Tenderness Extremities: No: Cool, Cyanosis Integumentary: No: Jaundice, Rash Neurological: Yes: Alert, Oriented Labs: CBC, BMP 07/03/19 05:30 06/29/19 07:20 Problem List - Problems (1) Small bowel obstruction due to adhesions Code(s): K56.50 - INTESTNL ADHESIONS, UNSP TO PARTIAL VERSUS COMPLETE OBST (2) Constipation due to opioid therapy Code(s): K59.03 - DRUG INDUCED CONSTIPATION; T40.2X5A - ADVERSE EFFECT OF OTHER OPIOIDS, INITIAL ENCOUNTER (3) Cachexia Code(s): R64 - CACHEXIA (4) COPD (chronic obstructive pulmonary disease) Code(s): J44.9 - CHRONIC OBSTRUCTIVE PULMONARY DISEASE, UNSPECIFIED Qualifiers: COPD type: unspecified COPD Qualified Code(s): J44.9 - Chronic obstructive pulmonary disease, unspecified (5) Hepatitis C, chronic Code(s): B18.2 - CHRONIC VIRAL HEPATITIS C Qualifiers: Hepatic coma status: without hepatic coma Qualified Code(s): B18.2 - Chronic viral hepatitis C Assessment/Plan recurrent/persistent partial SBO, likely with chronic component discussed with patient and daughter that this may not be fully relieved/ corrected without surgery at some point, but that it is not an emergency right now operation may have benefit of relieving obstruction, but also carries risks of intestinal injury, new/increasing scar tissue, continued risk of future obstruction(s) Pt is reluctant to have operation until/unless it becomes unavoidable. Tolerating pureed diet without nausea or pain. Trying chopped diet starting now. Would avoid carbonated drinks/soda. May be able go home on pureed/chopped diet, but would not d/c until he has tolerated for at least 24-36 hours. continue nutritional supplements (Ensure) - recommend at home also - could blend up his own if needed at home encourage OOB/sitting up in chair frequently, at minimum for meals ambulate with walker and assistance more than once a day, PT following reinforced to patient that if nausea recurs, he should stop eating and tell someone if his symptoms recur at home, he should come back to a hospital sooner than later he and his daughter understand and agree with plan
--- NOTE | 2019-07-03 19:04 | PN ---
Teaching Attending Note Name of Resident: Sohail Denton ATTENDING PHYSICIAN STATEMENT I saw and evaluated the patient. I reviewed the resident's note and discussed the case with the resident. I agree with the resident's findings and plan as documented. SUBJECTIVE: Patient is comfortable with no acute distress. feels better than yesterday. Vital Signs Temperature 98.2 F 07/03/19 18:43 Pulse Rate 85 07/03/19 18:43 Respiratory Rate 20 07/03/19 18:43 Blood Pressure 100/76 07/03/19 18:43 O2 Sat by Pulse Oximetry (%) 95 07/03/19 09:00 GENERAL: The patient is awake, alert, and fully oriented, in no acute distress. HEAD: Normal with no signs of trauma. EYES: PERRL, extraocular movements intact, sclera anicteric, conjunctiva clear. ENT: Ears normal, oropharynx clear without exudates, moist mucous membranes. NECK: Trachea midline, full range of motion, supple. LUNGS: Breath sounds equal, clear to auscultation bilaterally, no wheezes, no crackles, no accessory muscle use. HEART: Regular rate and rhythm, S1, S2 without murmur, rub or gallop. ABDOMEN: Soft, improving, normoactive bowel sounds, no guarding, no rebound, no hepatosplenomegaly, no masses. EXTREMITIES: 2+ pulses, warm, well-perfused, no edema. NEUROLOGICAL: Cranial nerves II through XII grossly intact. Normal speech, gait not observed. PSYCH: Normal mood, normal affect. SKIN: Warm, dry, normal turgor, no rashes or lesions noted CBCD WBC 4.9 K/mm3 (4.0-10.0) 06/29/19 07:20 RBC 3.65 M/mm3 (4.00-5.60) L 06/29/19 07:20 Hgb 10.1 GM/dL (11.7-16.9) L 06/29/19 07:20 Hct 30.6 % (35.4-49) L D 06/29/19 07:20 MCV 83.7 fl (80-96) 06/29/19 07:20 MCHC 33.1 g/dl (32.0-35.9) 06/29/19 07:20 RDW 15.8 % (11.9-15.9) 06/29/19 07:20 Plt Count 210 K/MM3 (134-434) D 06/29/19 07:20 MPV 8.3 fl (7.5-11.1) 06/29/19 07:20 CMP Sodium 140 mmol/L (136-145) 06/29/19 07:20 Potassium 4.3 mmol/L (3.5-5.1) 06/29/19 07:20 Chloride 109 mmol/L (98-107) H 06/29/19 07:20 Carbon Dioxide 27 mmol/L (21-32) 06/29/19 07:20 Anion Gap 4 MMOL/L (8-16) L 06/29/19 07:20 BUN 20.4 mg/dL (7-18) H 06/29/19 07:20 Creatinine 1.0 mg/dL (0.55-1.3) 06/29/19 07:20 Random Glucose 92 mg/dL (74-106) 06/29/19 07:20 Calcium 8.3 mg/dL (8.5-10.1) L 06/29/19 07:20 Total Bilirubin 0.4 mg/dL (0.2-1) 06/28/19 05:54 AST 25 U/L (15-37) 06/28/19 05:54 ALT 18 U/L (13-61) 06/28/19 05:54 Alkaline Phosphatase 56 U/L (45-117) 06/28/19 05:54 Total Protein 8.4 g/dl (6.4-8.2) H 06/28/19 05:54 Albumin 4.2 g/dl (3.4-5.0) 06/28/19 05:54 Current Medications Generic Name Dose Route Start Last Admin Trade Name Freq PRN Reason Stop Dose Admin Budesonide/Formoterol Fumarate 2 puff 06/29/19 10:00 07/01/19 21:47 Symbicort 80/4.5mcg - IH 2 puff BID EMILY Administration Gabapentin 300 mg 06/30/19 22:00 07/01/19 21:49 Neurontin - PO Not Given HS EMILY Heparin Sodium (Porcine) 5,000 unit 06/28/19 22:00 07/02/19 05:35 Heparin - SQ 5,000 unit TID EMILY Administration Oxycodone HCl 2.5 mg 06/30/19 18:01 07/01/19 08:49 Roxicodone - PO 2.5 mg Q6H PRN Administration PAIN LEVEL 6-10 Prochlorperazine Edisylate 5 mg 06/28/19 12:19 06/28/19 16:11 Compazine Injection - IVPB 5 mg Q4H PRN Administration NAUSEA Trazodone HCl 50 mg 06/30/19 22:00 07/01/19 21:45 Desyrel - PO 50 mg HS PRN Administration INSOMNIA Home Medications Medication Instructions Recorded Ipratropium/Albuterol Sulfate 4 gm IH BID 10/13/17 [Combivent Respimat 20-100 Mcg] Fluticasone/Salmeterol [Advair 1 each IH BID 06/15/19 250-50 Diskus] Gabapentin [Neurontin] 300 mg PO HS 06/15/19 Megestrol Acetate Oral Susp 400 mg PO BID 06/15/19 [Megace Oral Suspension -] Oxycodone HCl 10 mg PO BID PRN 06/15/19 Tizanidine HCl 2 mg PO BID PRN 06/15/19 traZODone HCL [Trazodone HCl] 50 mg PO HS PRN 06/15/19 Docusate Sodium [Colace -] 100 mg PO BID #60 capsule 06/26/19 Polyethylene Glycol 3350 [Miralax 17 gm PO DAILY #1 bottle 06/27/19 (For Daily Use) -] Doxepin HCl 75 mg PO 06/30/19 Mirtazapine 30 mg PO 06/30/19 Assessment and plan: Patient is a 68yo m with Pmhx of COPD s/p appendectomy, untreated hepatitis C, recurrent SBO with last ex-lap with lysis of adhesions in 10/22 and recent admission for SBO ( conservative management , d/c on 06/25/19) who presented with abd pain, and N/V and was found to have acute SBO # Recurrent SBO. full liquid to continue , and advance diet slowly , cont low dose oxy 2.5 mg for lower back pain and abd pain # H/o COPD: cont inhalers. # H/o lower back pain: on oxy low dose , cont neurontin , as per surgeon not to be on any pain meds. DVt Px: Heparin
[2019-07-03] MEDS: traZODone HCL 50 MG TABLET (FP) PO PRN (21:25)
[2019-07-03] MEDS: GABAPENTIN 300 MG CAPSULE PO SCH (21:25)
[2019-07-03] MEDS ORDERED: MELATONIN 1 MG TABLET PO SCH (22:00)
[2019-07-04] MEDS: HEPARIN NA (PORCINE) 5,000 UNITS/ML 1ML VIAL SQ SCH ×2 (06:23→14:21)
[2019-07-04] MEDS ORDERED: SODIUM CHLORIDE 250 ML IV STA (09:27)
--- NOTE | 2019-07-04 09:27 | PN ---
Teaching Attending Note Name of Resident: Monica Fernández ATTENDING PHYSICIAN STATEMENT I saw and evaluated the patient. I reviewed the resident's note and discussed the case with the resident. I agree with the resident's findings and plan as documented. 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 He is moving his bowels, and tolerating diet. OBJECTIVE: Vital Signs Temperature 98.2 F 07/04/19 06:00 Pulse Rate 79 07/04/19 06:00 Respiratory Rate 20 07/04/19 06:00 Blood Pressure 92/58 L 07/04/19 06:00 O2 Sat by Pulse Oximetry (%) 95 07/03/19 21:00 CBCD WBC 5.8 K/mm3 (4.0-10.0) 07/03/19 05:30 RBC 4.08 M/mm3 (4.00-5.60) 07/03/19 05:30 Hgb 11.3 GM/dL (11.7-16.9) L 07/03/19 05:30 Hct 34.1 % (35.4-49) L 07/03/19 05:30 MCV 83.5 fl (80-96) 07/03/19 05:30 MCHC 33.2 g/dl (32.0-35.9) 07/03/19 05:30 RDW 15.9 % (11.9-15.9) 07/03/19 05:30 Plt Count 302 K/MM3 (134-434) D 07/03/19 05:30 MPV 8.4 fl (7.5-11.1) 07/03/19 05:30 CMP Sodium 140 mmol/L (136-145) 06/29/19 07:20 Potassium 4.3 mmol/L (3.5-5.1) 06/29/19 07:20 Chloride 109 mmol/L (98-107) H 06/29/19 07:20 Carbon Dioxide 27 mmol/L (21-32) 06/29/19 07:20 Anion Gap 4 MMOL/L (8-16) L 06/29/19 07:20 BUN 20.4 mg/dL (7-18) H 06/29/19 07:20 Creatinine 1.0 mg/dL (0.55-1.3) 06/29/19 07:20 Random Glucose 92 mg/dL (74-106) 06/29/19 07:20 Calcium 8.3 mg/dL (8.5-10.1) L 06/29/19 07:20 Total Bilirubin 0.4 mg/dL (0.2-1) 06/28/19 05:54 AST 25 U/L (15-37) 06/28/19 05:54 ALT 18 U/L (13-61) 06/28/19 05:54 Alkaline Phosphatase 56 U/L (45-117) 06/28/19 05:54 Total Protein 8.4 g/dl (6.4-8.2) H 06/28/19 05:54 Albumin 4.2 g/dl (3.4-5.0) 06/28/19 05:54 Current Medications Generic Name Dose Route Start Last Admin Trade Name Freq PRN Reason Stop Dose Admin Budesonide/Formoterol Fumarate 2 puff 06/29/19 10:00 07/03/19 21:25 Symbicort 80/4.5mcg - IH 2 puff BID EMILY Administration Gabapentin 300 mg 06/30/19 22:00 07/03/19 21:25 Neurontin - PO Not Given HS EMILY Heparin Sodium (Porcine) 5,000 unit 06/28/19 22:00 07/04/19 06:23 Heparin - SQ Not Given TID EMILY Melatonin 3 mg 07/03/19 22:00 07/03/19 21:25 Melatonin PO Not Given HS EMILY Oxycodone HCl 2.5 mg 07/04/19 07:17 Roxicodone - PO Q6H PRN PAIN LEVEL 6-10 Prochlorperazine Edisylate 5 mg 06/28/19 12:19 06/28/19 16:11 Compazine Injection - IVPB 5 mg Q4H PRN Administration NAUSEA Trazodone HCl 50 mg 06/30/19 22:00 07/03/19 21:25 Desyrel - PO 50 mg HS PRN Administration INSOMNIA Home Medications Medication Instructions Recorded Ipratropium/Albuterol Sulfate 4 gm IH BID 10/13/17 [Combivent Respimat 20-100 Mcg] Fluticasone/Salmeterol [Advair 1 each IH BID 06/15/19 250-50 Diskus] Gabapentin [Neurontin] 300 mg PO HS 06/15/19 Megestrol Acetate Oral Susp 400 mg PO BID 06/15/19 [Megace Oral Suspension -] Oxycodone HCl 10 mg PO BID PRN 06/15/19 Tizanidine HCl 2 mg PO BID PRN 06/15/19 traZODone HCL [Trazodone HCl] 50 mg PO HS PRN 06/15/19 Docusate Sodium [Colace -] 100 mg PO BID #60 capsule 06/26/19 Polyethylene Glycol 3350 [Miralax 17 gm PO DAILY #1 bottle 06/27/19 (For Daily Use) -] Doxepin HCl 75 mg PO 06/30/19 Mirtazapine 30 mg PO 06/30/19 CT of abdomen and pelvis: showing high-grade partial SBO, with contrast and air into colon, but proximal dilated, fluid-filled small bowel and nondilated distal SB. Assessment and plan: Patient is a 68yo m with Pmhx of COPD s/p appendectomy, untreated hepatitis C, recurrent SBO with last ex-lap with lysis of adhesions in 10/22 and recent admission for SBO ( conservative management , d/c on 06/25/19) who presented with abd pain, and N/V and was found to have acute SBO # Recurrent SBO. soft diet tolerated without any difficulty , passing gas and had a bM, will dc patient home and was suggested if it happens again to return # H/o COPD: cont inhalers. # H/o lower back pain: on oxy low dose , cont neurontin , as per surgeon not to be on any pain meds.
[2019-07-04] MEDS: oxyCODONE HCL 5 MG TABLET PO PRN ×2 (10:39→16:36)
[2019-07-04] MEDS: BUDESONIDE/FORMETEROL FUMARATE 80/4.5 mcg INHALER IH SCH (10:40)
--- NOTE | 2019-07-04 12:06 | PN ---
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 He had CT showing high-grade partial SBO, with contrast and air into colon, but proximal dilated, fluid-filled small bowel and nondilated distal SB. He is moving his bowels. He is seen and examined sitting up in chair for lunch. He denies nausea or pain and tolerated chopped diet last night. Current meal appears to be pureed, despite order for chopped. - Current Medication List Current Medications: Active Medications Budesonide/Formoterol Fumarate (Symbicort 80/4.5mcg -) 2 puff IH BID [facility] Last Admin: 07/04/19 10:40 Dose: 2 puff Gabapentin (Neurontin -) 300 mg PO HS [facility] Last Admin: 07/03/19 21:25 Dose: Not Given Heparin Sodium (Porcine) (Heparin -) 5,000 unit SQ TID [facility] Last Admin: 07/04/19 06:23 Dose: Not Given Melatonin (Melatonin) 3 mg PO HS [facility] Last Admin: 07/03/19 21:25 Dose: Not Given Oxycodone HCl (Roxicodone -) 2.5 mg PO Q6H PRN PRN Reason: PAIN LEVEL 6-10 Last Admin: 07/04/19 10:39 Dose: 2.5 mg Prochlorperazine Edisylate (Compazine Injection -) 5 mg IVPB Q4H PRN PRN Reason: NAUSEA Last Admin: 06/28/19 16:11 Dose: 5 mg Trazodone HCl (Desyrel -) 50 mg PO HS PRN PRN Reason: INSOMNIA Last Admin: 07/03/19 21:25 Dose: 50 mg - Objective Vital Signs: Vital Signs Temperature 98.2 F 07/04/19 06:00 Pulse Rate 79 07/04/19 06:00 Respiratory Rate 20 07/04/19 06:00 Blood Pressure 92/58 L 07/04/19 06:00 O2 Sat by Pulse Oximetry (%) 95 07/03/19 21:00 Constitutional: Yes: No Distress, Calm, Thin Eyes: Yes: Conjunctiva Clear, EOM Intact HENT: Yes: Atraumatic, Normocephalic Gastrointestinal: Yes: Soft, Distention (minimal), Hernia (midline fascial gap palpable). No: Tenderness Extremities: No: Cool, Cyanosis Integumentary: No: Jaundice, Rash Neurological: Yes: Alert, Oriented Labs: CBC 07/03/19 05:30 Problem List - Problems (1) Small bowel obstruction due to adhesions Code(s): K56.50 - INTESTNL ADHESIONS, UNSP TO PARTIAL VERSUS COMPLETE OBST (2) Constipation due to opioid therapy Code(s): K59.03 - DRUG INDUCED CONSTIPATION; T40.2X5A - ADVERSE EFFECT OF OTHER OPIOIDS, INITIAL ENCOUNTER (3) Cachexia Code(s): R64 - CACHEXIA (4) COPD (chronic obstructive pulmonary disease) Code(s): J44.9 - CHRONIC OBSTRUCTIVE PULMONARY DISEASE, UNSPECIFIED Qualifiers: COPD type: unspecified COPD Qualified Code(s): J44.9 - Chronic obstructive pulmonary disease, unspecified (5) Hepatitis C, chronic Code(s): B18.2 - CHRONIC VIRAL HEPATITIS C Qualifiers: Hepatic coma status: without hepatic coma Qualified Code(s): B18.2 - Chronic viral hepatitis C Assessment/Plan recurrent/persistent partial SBO, likely with chronic component have discussed with patient and daughter that this may not be fully relieved/ corrected without surgery at some point, but that it is not an emergency right now operation may have benefit of relieving obstruction, but also carries risks of intestinal injury, new/increasing scar tissue, continued risk of future obstruction(s) Pt is reluctant to have operation until/unless it becomes unavoidable. Tolerating chopped/pureed diet without nausea or pain. Called down to kitchen to get correct (chopped) diet sent up. Would avoid carbonated drinks/soda. May be able go home on pureed/chopped diet, but would not d/c until he has tolerated for at least 24-36 hours. continue nutritional supplements (Ensure) - recommend at home also - could blend up his own if needed at home encourage OOB/sitting up in chair frequently, at minimum for meals ambulate with walker and assistance more than once a day, PT following reinforced to patient that if nausea recurs, he should stop eating and tell someone if his symptoms recur at home, he should come back to a hospital sooner than later
[2019-07-04] MEDS ORDERED: DOCUSATE SODIUM 100 MG CAPSULE (FP) PO ONE (15:04)
[2019-07-04] MEDS ORDERED: POLYETHYLENE GLYCOL 3350 119 GM BTL PO ONE (15:04)
--- NOTE | 2019-07-04 16:49 | DS ---
Physical Exam: SUBJECTIVE: Patient seen and examined at bedside. pt has no acute complaints. pt is tolerating diet OBJECTIVE: Vital Signs Period Temp Pulse Resp BP Sys/Monsalve Pulse Ox Last 24 Hr 97.8 F-98.6 F 79-89 18-20 92-108/58-79 94-97 PHYSICAL EXAM GENERAL: The patient is awake, alert, and fully oriented, in no acute distress. LUNGS: Breath sounds equal, clear to auscultation bilaterally, no accessory muscle use. HEART: Regular rate and rhythm, S1, S2 ABDOMEN: Soft, nontender, nondistended, normoactive bowel sounds, no guarding EXTREMITIES: 2+ pulses, warm, well-perfused, no edema. SKIN: Warm, dry, normal turgor, no rashes or lesions noted HOSPITAL COURSE: Date of Admission:06/28/19 68 yo M PMH of COPD ( not on home O2) , Hep C ( unTx), recurrent SBO ( s/p ex lap 10/22) presented to [facility] with Abdominal pain, n/v. pt found to have SBO. pt was maintained NPO with IVF and diet was slowly added being sure to have low residue and no soda. pt was evaluated by surgery, with no surgical intervention needed. pt was encouraged to use incentive tre and passed pre- post . pt was continued on lower dose of oxy and neurontin for pain.pt encouraged to have frequent BM and to use colace, senna . 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 You came to the hospital because you were having abdominal pain You were admitted to the hospital for a small bowel obstruction. We imaged your abdomen and saw an small bowel obstruction. We treated you with bowel rest, fluids, and slowly advancing your diet. Your obstruction resolved and you are now eating and passing gas. While here you were seen by the medicine physicians and surgeons You are now stable and may return home. MEDICATIONS. Please do not take Oxycodone 10 mg for your pain as this may be contributing to your obstruction. please take a smaller dose of oxycodone 2.5 mg, do not take any pain medication if possible since can worsen your small bowel obstruction. Please continue your home medications as prescribed. Please continue to take Colace and Miralax to avoid constipation. ADDITIONAL CARE. Please make an appointment to see your primary care provider, Dr. Bruce dominguez from today. Please have a CBC and a CMP drawn at that time. please follow with your surgeon or with Dr. Rudolph in 2 weeks ADDITIONAL INFORMATION. Please call 911 or come directly to the emergency department if you experience worsening abdominal pain, constipation, nausea, vomiting, unusual headache, vision change, shortness of breath, chest pain, numbness, tingling, loss of alertness/awareness, loss of function, unusual bleeding or any alarming symptoms. Please continue to avoid drinking carbonated beverages. Referrals: Erick Rudolph MD [Staff Physician] - 1 Week Zohaib Barrera MD [Primary Care Provider] - 1 Week Disposition: HOME - Home Medications Comprehensive Discharge Medication List: Ambulatory Orders Ipratropium/Albuterol Sulfate [Combivent Respimat 20-100 Mcg] 4 gm IH BID 10/13/17 Fluticasone/Salmeterol [Advair 250-50 Diskus] 1 each IH BID 06/15/19 Gabapentin [Neurontin] 300 mg PO HS 06/15/19 traZODone HCL [Trazodone HCl] 50 mg PO HS PRN 06/15/19 Docusate Sodium [Colace -] 100 mg PO BID #60 capsule 06/26/19 Polyethylene Glycol 3350 [Miralax 119 gm Btl -] 17 gm PO DAILY #1 bottle 06/27/19 Doxepin HCl 75 mg PO DAILY 06/30/19 Mirtazapine 30 mg PO DAILY 06/30/19 This patient is new to me today: No Emergency Visit: No Critical Care patient: No - Discharge Referral Referred to [facility] Med [facility] No ATTENDING PHYSICIAN STATEMENT I saw and evaluated the patient. I reviewed the resident's note and discussed the case with the resident. I agree with the resident's findings and plan as documented. SUBJECTIVE: OBJECTIVE: ASSESSMENT AND PLAN:
[2019-07-04 18:19] VITALS: BP 98/65; PULSE 81; TEMP 97.5
== END 2019-07-04 19:30 | disposition home or self-care (01) | DRG 388 ==
LOC: JER 04:30 → JERBED 06:05 → J7W 09:01
PROVIDERS: ADMIT Internal Medicine; ATTEND Internal Medicine
DX: K56.609 Unspecified intestinal obstruction, unspecified as to partial versus complete obstruction (principal); E43 Unspecified severe protein-calorie malnutrition; R64 Cachexia; Z68.1 Body mass index [BMI] 19.9 or less, adult; J44.9 Chronic obstructive pulmonary disease, unspecified; B18.2 Chronic viral hepatitis C; E86.0 Dehydration; M54.5 Low back pain; R10.33 Periumbilical pain; K59.03 Drug induced constipation; T40.2X5A Adverse effect of other opioids, initial encounter; Z87.891 Personal history of nicotine dependence
CPT/HCPCS: 36415; 74019-TC-FY; 74177-TC; 80048; 80053; 83605; 83735; 84100; 85025; 85027; 85610; 85730; 86850; 86900; 86901; 93005; 93010; 94761; 97116-GP; 97162-GP; 99285-25; J1644; J7030; Q9967

== ENCOUNTER 2019-12-29 19:09 | Inpatient (IN) | payer MEDICARE, OTHER ==
[2019-12-29] MEDS ORDERED: SODIUM CHLORIDE 0.9% 500 ML INFUS.BAG IV ONE (20:25)
[2019-12-29] MEDS ORDERED: ACETAMINOPHEN 1000 MG/100 ML VIAL (NON FORMULARY) IVPB ONE (20:26)
[2019-12-29] MEDS ORDERED: ONDANSETRON 4 MG/2 ML VIAL IVPUSH ONE (20:27)
[2019-12-29] MEDS ORDERED: HYDROmorphone HCL CARPU-JECT 2 MG/1 ML DISP.SYRIN IVPUSH ONE (20:31)
[2019-12-29] MEDS ORDERED: ACETAMINOPHEN INJECTION 100 ML IVPB ONE (20:37)
--- NOTE | 2019-12-29 21:04 | PDOC ---
Attending Attestation - Resident Resident Name: ParamBernardinoTrenton - ED Attending Attestation I have performed the following: I have examined & evaluated the patient, The case was reviewed & discussed with the resident, I agree w/resident's findings & plan, Exceptions are as noted - HPI HPI: 12/29/19 20:59 69 yo male w/ abd pain and multiple episodoes of emesis, hx of multiple sbos, co ab pain x 2 days and decreased bms - Physicial Exam PE: 12/29/19 21:04 Abd tender diffusely hypoactive bs No rebound +gaurding - Medical Decision Making 12/29/19 21:05 69 yo male w/ abd pain plan w/ hx of multiple sbo, will plan for ctap to ro sbo lactate to eval for ischemia lfts lipase ekg pain control ivf NG tube placed confirmed, admitted to surgery Discharge - Discharge Information Problems reviewed: Yes Clinical Impression/Diagnosis: SBO (small bowel obstruction) Condition: Stable - Follow up/Referral - Patient Discharge Instructions - Post Discharge Activity
[2019-12-29] MEDS ORDERED: HYDROmorphone HCl 2 MG/ML VIAL ONE (21:29)
[2019-12-29 21:55] LABS: BASO % 0.4 % (0-2.0); EOS % 0.2 % (0-4.5); HEMATOCRIT 42.1 % (35.4-49); HEMOGLOBIN 13.5 GM/dL (11.7-16.9); LYMPH % 13.4 % (8-40); MCH 26.8 pg (25.7-33.7); MCHC 32.2 g/dl (32.0-35.9); MEAN CELL VOLUME 83.3 fl (80-96); MEAN PLT VOLUME 8.2 fl (7.5-11.1); MONO % 6.2 % (3.8-10.2); NEUT % 79.8 % (42.8-82.8); PLATELET COUNT 204 K/MM3 (134-434); RBC 5.05 M/mm3 (4.00-5.60); RDW 15.8 % (11.9-15.9); WHITE BLOOD COUNT 9.3 K/mm3 (4.0-10.0)
[2019-12-29 22:02] LABS: INR 1.08 (0.83-1.09); PROTHROMBIN TIME (PATIENT) 12.8 SEC (9.7-13.0)
[2019-12-29 22:05] LABS: ACTIVATED PTT 30.2 SECONDS (25.2-36.5)
[2019-12-29 22:55] LABS: ALBUMIN 4.3 g/dl (3.4-5.0); BILIRUBIN,TOTAL 0.8 mg/dL (0.2-1); BLOOD UREA NITROGEN 12.9 mg/dL (7-18); CALCIUM 9.7 mg/dL (8.5-10.1); CREATININE 1.1 mg/dL (0.55-1.3); MAGNESIUM 2.1 mg/dL (1.8-2.4); PHOSPHOROUS 3.4 mg/dL (2.5-4.9); TOT PROT 8.1 g/dl (6.4-8.2)
--- NOTE | 2019-12-29 23:13 | PDOC ---
History of Present Illness - General History Source: Patient Exam Limitations: No Limitations - History of Present Illness Initial Comments: 12/29/19 20:27 69yo M PMH COPD, s/p appendectomy, hepatitis C, recurrent SBO (s/p NHI 10/15/17), presenting with severe diffuse abdominal pain with nausea and vomiting since last night. Patient reports 2 days of poor PO and no BMs, then 1 days of nausea and vomiting with any attempted PO. Vomit has been green in color, no blood noticed. Pain is located in his entire abdomen and he reports that it feels the same as his pain with prior SOBs, abdominal fullness and diffuse pain. Endorses subjective fevers and chills. Chest pain, SOB, cough, diarrhea, recent illness. No blood in his emesis. All: NKDA Meds: Per chart PMH: As above PSH: Per chart <Trenton Virgen - Last Filed: 01/04/20 14:02> <Jan Chase - Last Filed: 01/11/20 17:29> - General Chief Complaint: Pain Stated Complaint: ABDOMINAL PAIN Time Seen by Provider: 12/29/19 20:13 Past History - Travel History Traveled outside of the country in the last 30 days: No Close contact w/someone who was outside of country & ill: No - Medical History Anemia: Yes (borderline) Asthma: Yes Cancer: No Cardiac Disorders: No CVA: No COPD: Yes CHF: No Dementia: No Diabetes: No GI Disorders: Yes (SBO) Disorders: No HTN: No Hypercholesterolemia: No Liver Disease: Yes (HEPATITIS C) Seizures: No Thyroid Disease: No - Surgical History Abdominal Surgery: Yes (EXP.LAP FOR SBO; RESECTION) Appendectomy: Yes Cardiac Surgery: No Cholecystectomy: No Lung Surgery: No Neurologic Surgery: No Orthopedic Surgery: Yes (sinus surgery about 40yrs ago) - Immunization History Immunization Up to Date: Yes - Psycho-Social/Smoking History Smoking Status: Yes Smoking History: Current every day smoker Have you smoked in the past 12 months: No Number of Cigarettes Smoked Daily: 4 If you are a former smoker, when did you quit?: 1 yr ago Information on smoking cessation initiated: Yes 'Breaking Loose' booklet given: 11/02/16 - Substance Abuse Hx (Audit-C & DAST Scrn) How often the patient has a drink containing alcohol: Never Score: In Men: 4 or > Positive; In Women: 3 or > Positive: 0 Screen Result (Pos requires Nsg. Audit-10AR): Negative In the last yr the pt used illegal drug/Rx for NonMed reason: No Score: Yes response is considered Positive: 0 Screen Result (Positive result requires Nsg. DAST-10): Negative <Trenton Virgen - Last Filed: 01/04/20 14:02> <Jan Chase - Last Filed: 01/11/20 17:29> - Medical History Allergies/Adverse Reactions: Allergies Allergy/AdvReac Type Severity Reaction Status Date / Time No Known Allergies Allergy Verified 12/29/19 19:13 Home Medications: Ambulatory Orders Ipratropium/Albuterol Sulfate [Combivent Respimat 20-100 Mcg] 4 gm IH BID 10/13/17 Fluticasone/Salmeterol [Advair 250-50 Diskus] 1 each IH BID 06/15/19 Gabapentin [Neurontin] 300 mg PO HS 06/15/19 traZODone HCL [Trazodone HCl] 50 mg PO HS PRN 06/15/19 Docusate Sodium [Colace -] 100 mg PO BID #60 capsule 06/26/19 Polyethylene Glycol 3350 [Miralax 119 gm Btl -] 17 gm PO DAILY #1 bottle 06/27/19 Doxepin HCl 75 mg PO DAILY 06/30/19 Mirtazapine 30 mg PO DAILY 06/30/19 Oxycodone HCl [Oxycodone HCl ER] 10 mg PO BID 01/01/20 Prednisone See Taper PO DAILY #30 tablet 01/06/20 Review of Systems - Review of Systems Able to Perform ROS?: Yes Is the patient limited [place] proficient: Yes Constitutional: Yes: Chills, Fever HEENTM: No: Recent change in vision, Nose Pain Respiratory: No: Cough, Shortness of Breath Cardiac (ROS): No: Chest Pain, Edema, Lightheadedness, Palpitations, Syncope ABD/GI: Yes: Constipated, Nausea, Vomiting. No: Diarrhea : No: Dysuria, Discharge, Frequency Musculoskeletal: No: Back Pain, Muscle Pain, Muscle Weakness Integumentary: No: Bruising, Change in Color, Rash Neurological: No: Headache, Numbness, Tingling, Weakness Psychiatric: No: Stressors, Change in Appetite Endocrine: No: Increased Thirst, Increased Urine, Change in Weight Hematologic/Lymphatic: No: Anemia, Blood Clots, Easy Bleeding All Other Systems: Reviewed and Negative <Trenton Virgen - Last Filed: 01/04/20 14:02> *Physical Exam - Vital Signs Last Vital Signs Temp Pulse Resp BP Pulse Ox 98.6 F 104 H 18 123/88 96 12/29/19 19:11 12/29/19 19:11 12/29/19 19:11 12/29/19 19:11 12/29/19 19:11 - Physical Exam 12/29/19 23:19 Vitals reviewed, AFVSS GEN: Moaning in pain, appears stated age, uncomfortable. AAOx3. HEENT: NCAT, EOMI, PERRL. Sclera anicteric, non-injected. No facial asymmetry. Moist mucous membranes. Normal voice. Trachea midline. CV: RRR, S1/S2, no murmurs / rubs / gallops appreciated. LUNG: CTABL, normal work of breathing. No wheezes, rales, rhonchi. No cough. Speaking full sentences. GI: Soft, non-distended, TTP diffusely throughout, diminished BS, +guarding, no rebound. No masses. EXTREMITIES: 2+ distal pulses. No clubbing / cyanosis / edema. No gross deformity in any extremity. SKIN: Warm, dry, no rashes appreciated, non-jaundiced. PSYCH: Normal mood and affect. Cooperative and appropriate. NEURO: CN grossly intact. Moving all extremities well. Normal strength and sensation grossly. <Trenton Virgen - Last Filed: 01/04/20 14:02> - Vital Signs Last Vital Signs Temp Pulse Resp BP Pulse Ox 98.2 F 60 20 116/66 98 01/07/20 09:00 01/07/20 09:00 01/07/20 09:00 01/07/20 09:00 01/07/20 09:00 <Jan Chase - Last Filed: 01/11/20 17:29> ED Treatment Course - LABORATORY CBC & Chemistry Diagram: 01/04/20 06:35 01/04/20 06:35 <Trenton Virgen - Last Filed: 01/04/20 14:02> - LABORATORY CBC & Chemistry Diagram: 01/04/20 06:35 01/04/20 06:35 - ADDITIONAL ORDERS Additional order review: 12/29/19 21:20 RBC 5.05 MCV 83.3 MCHC 32.2 RDW 15.8 MPV 8.2 Neutrophils % 79.8 Lymphocytes % 13.4 D Monocytes % 6.2 Eosinophils % 0.2 Basophils % 0.4 - Medications Given in the ED: ED Medications Discontinued Medications Generic Name Dose Route Start Last Admin Trade Name Freq PRN Reason Stop Dose Admin Acetaminophen 1,000 mg 12/29/19 20:26 12/29/19 21:27 Ofirmev Injection - IVPB 12/29/19 20:27 1,000 mg ONCE ONE Administration Acetaminophen 750 mg 12/30/19 12:00 01/02/20 13:24 Ofirmev Injection - IVPB Not Given Q6H EMILY Albuterol Sulfate 2 puff 12/30/19 03:51 01/03/20 09:08 Ventolin Hfa Inhaler - IH 2 puff Q4H PRN Administration SHORT OF BREATH/WHEEZING Albuterol Sulfate 1 amp 01/04/20 12:00 01/07/20 07:55 Ventolin 0.083% Nebulizer Soln - NEB 1 amp RQID EMILY Administration Benzocaine 1 spray 01/01/20 04:30 01/01/20 04:22 Americaine 20% [place] - TP 01/01/20 04:31 1 spray ONCE ONE Administration Budesonide/Formoterol Fumarate 2 puff 01/04/20 22:00 01/07/20 09:29 Symbicort 160/4.5mcg - IH 2 puff BID EMILY Administration Docusate Sodium 100 mg 01/02/20 16:45 01/07/20 09:28 Colace - PO 100 mg DAILY EMILY Administration Heparin Sodium (Porcine) 5,000 unit 12/30/19 11:00 01/07/20 06:21 Heparin - SQ 5,000 unit TID EMILY Administration Hydromorphone HCl 0.5 mg 12/29/19 20:31 12/29/19 21:32 Dilaudid Injection - IVPUSH 12/29/19 20:32 0.5 mg ONCE ONE Administration Hydromorphone HCl 0.5 mg 12/30/19 01:30 12/30/19 02:00 Dilaudid Injection - IVPUSH 12/30/19 01:31 0.5 mg ONCE ONE Administration Lactated Ringer's 1,000 ml in 1,000 mls @ 125 mls/hr 12/30/19 00:15 01/02/20 06:34 Lactated Ringers Solution IV 125 mls/hr ASDIR EMILY Administration Dextrose/Sodium Chloride 1,000 mls @ 83 mls/hr 12/30/19 02:45 12/31/19 03:21 D5-Ns - IV Not Given ASDIR EMILY Magnesium Sulfate/Dextrose 1 gm in 100 mls @ 100 mls/hr 01/02/20 11:30 01/02/20 14:27 Magnesium 1gm/D5w - IVPB 01/02/20 12:29 Not Given ONCE ONE Magnesium Oxide 400 mg 01/02/20 13:59 01/02/20 16:03 Mag-Ox - PO 01/02/20 14:00 400 mg ONCE ONE Administration Melatonin 3 mg 01/04/20 23:24 01/04/20 23:40 Melatonin PO 3 mg ONCE PRN Administration INSOMNIA Melatonin 3 mg 01/05/20 22:43 01/06/20 22:08 Melatonin PO 3 mg HS PRN Administration INSOMNIA Methylprednisolone Sodium Succinate 40 mg 01/04/20 12:00 01/06/20 09:52 Solu-Medrol - IVPUSH 40 mg Q8H-IV EMILY Administration Methylprednisolone Sodium Succinate 40 mg 01/06/20 14:30 01/07/20 01:46 Solu-Medrol - IVPUSH 40 mg Q12H EMILY Administration Morphine Sulfate 2 mg 12/30/19 03:48 01/02/20 06:34 Morphine Sulfate IVPUSH 2 mg Q6H PRN Administration PAIN LEVEL 6-10 Nicotine 14 mg 12/30/19 10:00 01/07/20 09:27 Nicoderm Patch - TD 14 mg DAILY EMILY Administration Ondansetron HCl 4 mg 12/29/19 20:27 12/29/19 21:27 Zofran Injection IVPUSH 12/29/19 20:28 4 mg NOW ONE Administration Ondansetron HCl 4 mg 12/30/19 01:30 12/30/19 02:00 Zofran Injection IVPUSH 12/30/19 01:31 4 mg ONCE ONE Administration Oxycodone HCl 10 mg 01/03/20 13:30 01/07/20 09:27 Oxycontin - PO 10 mg BID EMILY Administration Pantoprazole Sodium 40 mg 12/30/19 11:00 01/02/20 09:25 Protonix Iv IVPUSH 40 mg DAILY EMILY Administration Pantoprazole Sodium 40 mg 01/02/20 16:45 01/07/20 09:27 Protonix - PO 40 mg DAILY EMILY Administration Potassium Chloride 40 meq 01/02/20 10:08 01/02/20 11:58 K-Dur - PO 01/02/20 10:09 40 meq ONCE ONE Administration Potassium Chloride 40 meq 01/03/20 11:00 01/03/20 11:52 K-Dur - PO 01/03/20 11:01 40 meq ONCE ONE Administration Fluticasone/Salmeterol 1 puff 12/30/19 10:00 01/04/20 09:05 Advair 100mcg/50mcg - IH 1 puff BID EMILY Administration Sodium Chloride 1,000 ml 12/29/19 20:25 12/29/19 21:27 Normal Saline - IV 12/29/19 20:26 1,000 ml ONCE ONE Administration Tiotropium Atlas 2 puff 01/04/20 11:00 01/07/20 09:29 Spiriva Respimat IH 2 puff DAILY EMILY Administration <Jan Chase - Last Filed: 01/11/20 17:29> Medical Decision Making - Medical Decision Making 12/29/19 23:15 69 yo M PMH COPD, s/p appendectomy, hepatitis C, recurrent SBO (s/p NHI 10/15/17), presenting with severe diffuse abdominal pain with nausea and vomiting since last night. History notable for multiple surgeries due to adhesions, no BM of flatus for 2 days. Exam notable for diffusely tender abdomen, vomit in hurtado at bedside. Concerning for recurrent SBO, mesenteric ischemia, perforation on the differential however not peritoneal with stable vitals. - Labs - Pain control - CTAP 12/29/19 23:55 Patient endorsed to overnight resident for continued care CTAP completed, pending read Pain significantly improved s/p dilaudid <Trenton Virgen - Last Filed: 01/04/20 14:02> - Medical Decision Making PT found to have sbo, consulted surgery, ng tube inserted, admitted to medicine with surgery following in stable condition. 01/11/20 17:29 <Jan Chase - Last Filed: 01/11/20 17:29> Discharge - Discharge Information Problems reviewed: Yes <Trenton Virgen - Last Filed: 01/04/20 14:02> <Jan Chase - Last Filed: 01/11/20 17:29> - Discharge Information Clinical Impression/Diagnosis: SBO (small bowel obstruction), Cachexia Condition: Stable Disposition: HOME
[2019-12-30] MEDS: LACTATED RINGERS SOLUTION 1,000 ML/1,000 ML INFUS.BAG IV SCH (00:33)
--- NOTE | 2019-12-30 01:05 | PDOC ---
*Physical Exam - Vital Signs Last Vital Signs Temp Pulse Resp BP Pulse Ox 98.6 F 104 H 18 123/88 96 12/29/19 19:11 12/29/19 19:11 12/29/19 19:11 12/29/19 19:11 12/29/19 19:11 ED Treatment Course - LABORATORY CBC & Chemistry Diagram: 12/29/19 21:20 12/29/19 21:20 - ADDITIONAL ORDERS Additional order review: Laboratory Results 12/29/19 12/29/19 12/29/19 21:20 21:20 21:20 PT with INR INR PTT (Actin FS) Sodium 139 Potassium 5.0 Chloride 105 Carbon Dioxide 20 L Anion Gap 15 BUN 12.9 Creatinine 1.1 Est GFR (CKD-EPI)AfAm 77.86 Est GFR (CKD-EPI)NonAf 67.18 Random Glucose 111 H Lactic Acid 1.5 Calcium 9.7 Phosphorus 3.4 Magnesium 2.1 Total Bilirubin 0.8 AST 23 ALT 14 Alkaline Phosphatase 58 Total Protein 8.1 Albumin 4.3 Lipase 49 L Blood Type A POSITIVE Antibody Screen Negative 12/29/19 20:34 PT with INR 12.80 INR 1.08 PTT (Actin FS) 30.2 Sodium Potassium Chloride Carbon Dioxide Anion Gap BUN Creatinine Est GFR (CKD-EPI)AfAm Est GFR (CKD-EPI)NonAf Random Glucose Lactic Acid Calcium Phosphorus Magnesium Total Bilirubin AST ALT Alkaline Phosphatase Total Protein Albumin Lipase Blood Type Antibody Screen 12/29/19 21:20 RBC 5.05 MCV 83.3 MCHC 32.2 RDW 15.8 MPV 8.2 Neutrophils % 79.8 Lymphocytes % 13.4 D Monocytes % 6.2 Eosinophils % 0.2 Basophils % 0.4 - Medications Given in the ED: ED Medications Discontinued Medications Generic Name Dose Route Start Last Admin Trade Name Freq PRN Reason Stop Dose Admin Acetaminophen 1,000 mg 12/29/19 20:26 12/29/19 21:27 Ofirmev Injection - IVPB 12/29/19 20:27 1,000 mg ONCE ONE Administration Hydromorphone HCl 0.5 mg 12/29/19 20:31 12/29/19 21:32 Dilaudid Injection - IVPUSH 12/29/19 20:32 0.5 mg ONCE ONE Administration Ondansetron HCl 4 mg 12/29/19 20:27 12/29/19 21:27 Zofran Injection IVPUSH 12/29/19 20:28 4 mg NOW ONE Administration Sodium Chloride 1,000 ml 12/29/19 20:25 12/29/19 21:27 Normal Saline - IV 12/29/19 20:26 1,000 ml ONCE ONE Administration Medical Decision Making - Medical Decision Making 12/30/19 00:43 Received out on signout from Dr Virgen 69 yo M PMH COPD, s/p appendectomy, hepatitis C, recurrent SBO (s/p NHI 10/15/17), presenting with severe diffuse abdominal pain with nausea and vomiting since last night. History notable for multiple surgeries due to adhesions, no BM of flatus for 2 days. Exam notable for diffusely tender abdomen, vomit in hurtado at bedside. Concerning for recurrent SBO, mesenteric ischemia, perforation on the differential however not peritoneal with stable vitals. will followup CT 12/30/19 01:18 CT with dilated stomach and loops of bowel up to 4cm with air fluid levels and transition point consult gen surg will place NG LR 125cc/hr admitted for sbo Discharge - Discharge Information Problems reviewed: Yes Clinical Impression/Diagnosis: SBO (small bowel obstruction) Condition: Stable - Follow up/Referral Referrals: Zohaib Barrera MD [Primary Care Provider] - - Patient Discharge Instructions - Post Discharge Activity
[2019-12-30] MEDS ORDERED: ONDANSETRON 4 MG/2 ML VIAL IVPUSH ONE (01:30)
[2019-12-30] MEDS ORDERED: HYDROmorphone HCL CARPU-JECT 2 MG/1 ML DISP.SYRIN IVPUSH ONE (01:30)
[2019-12-30] MEDS ORDERED: HYDROmorphone HCl 2 MG/ML VIAL ONE (01:33)
[2019-12-30] MEDS ORDERED: LIDOCAINE HCL 2% JELLY (5 ML/TUBE) ONE (01:42)
[2019-12-30] MEDS: DEXTROSE 5%-NORMAL SALINE 1,000 ML IV SCH (03:05)
[2019-12-30] MEDS ORDERED: ALBUTEROL SO4 HFA INHALER IH PRN (03:51)
--- NOTE | 2019-12-30 03:55 | HP ---
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 Expresses concern that he is having pain similiar to his SBO symptoms from a couple of years prior. Last flatus or BM was 2d prior. Denies fever, chills. ER course was notable for: -Tmax 100.1F, HR 104-110, BP 123/88 -CT A/P: SBM w/ small bowel dilated up to 4.0cm; no abscess or free air. The colon is collapse. Transition point may be in the Left mid lower -Ofirmev -Dilaudid 0.5mg, NS 1000, LR @125 -NGT placement with immediate 1.2L of thick green output Recent Travel: denies PAST MEDICAL HISTORY: as above PAST SURGICAL HISTORY: ex lap and NHI in 2018 Social History: Smoking: current everyday smoker(4 cig daily) Alcohol: denies Drugs: former cocaine sniffing Allergies No Known Allergies Allergy (Verified 12/29/19 19:13) HOME MEDICATIONS: Home Medications Medication Instructions Recorded Ipratropium/Albuterol Sulfate 4 gm IH BID 10/13/17 [Combivent Respimat 20-100 Mcg] Fluticasone/Salmeterol [Advair 1 each IH BID 06/15/19 250-50 Diskus] Gabapentin [Neurontin] 300 mg PO HS 06/15/19 traZODone HCL [Trazodone HCl] 50 mg PO HS PRN 06/15/19 Docusate Sodium [Colace -] 100 mg PO BID #60 capsule 06/26/19 Polyethylene Glycol 3350 [Miralax 17 gm PO DAILY #1 bottle 06/27/19 119 gm Btl -] Doxepin HCl 75 mg PO DAILY 06/30/19 Mirtazapine 30 mg PO DAILY 06/30/19 REVIEW OF SYSTEMS CONSTITUTIONAL: Absent: fever, chills, diaphoresis, generalized weakness, malaise, loss of appetite, weight change HEENT: Absent: rhinorrhea, nasal congestion, throat pain, throat swelling, difficulty swallowing, mouth swelling, ear pain, eye pain, visual changes CARDIOVASCULAR: Absent: chest pain, syncope, palpitations, irregular heart rate, lightheadedness, peripheral edema RESPIRATORY: Absent: cough, shortness of breath, dyspnea with exertion, orthopnea, wheezing, stridor, hemoptysis GASTROINTESTINAL:abdominal pain, abdominal distension, nausea, vomiting Absent: , diarrhea, constipation, melena, hematochezia GENITOURINARY: Absent: dysuria, frequency, urgency, hesitancy, hematuria, flank pain, genital pain MUSCULOSKELETAL: Absent: myalgia, arthralgia, joint swelling, back pain, neck pain SKIN: Absent: rash, itching, pallor HEMATOLOGIC/IMMUNOLOGIC: Absent: easy bleeding, easy bruising, lymphadenopathy, frequent infections ENDOCRINE: Absent: unexplained weight gain, unexplained weight loss, heat intolerance, cold intolerance NEUROLOGIC: Absent: headache, focal weakness or paresthesias, dizziness, unsteady gait, seizure, mental status changes, bladder or bowel incontinence PSYCHIATRIC: Absent: anxiety, depression, suicidal or homicidal ideation, hallucinations. PHYSICAL EXAMINATION Vital Signs - 24 hr 12/29/19 12/30/19 19:11 02:24 Temperature 98.6 F 100.1 F H Pulse Rate 104 H Pulse Rate [ 110 H Right Radial] Respiratory 18 16 Rate Blood Pressure 123/88 Blood Pressure 101/72 [Right Arm] O2 Sat by Pulse 96 95 Oximetry (%) GENERAL: Awake, alert, and fully oriented. In moderate discomfort. Thin- appearing HEAD: NC/AT EYES: traocular movements intact, sclera anicteric, conjunctiva clear. EARS, NOSE, THROAT: Ears normal, nares patent, oropharynx clear without exudates. Moist mucous membranes. NECK: Normal range of motion, supple without lymphadenopathy, JVD, or masses. LUNGS: Breath sounds equal, clear to auscultation bilaterally. No wheezes, and no crackles. No accessory muscle use. Speaking full sentences on RA HEART: Regular rate and rhythm, normal S1 and S2 without murmur, rub or gallop. ABDOMEN: well-healed midline surgical scar. Distended, tympanic to percussion, Tenderness throughout abd. hypoactive bowel sounds, passive guarding MUSCULOSKELETAL: Normal range of motion at all joints. No bony deformities or tenderness. UPPER EXTREMITIES: 2+ pulses, warm, well-perfused. No cyanosis. No clubbing. No peripheral edema. LOWER EXTREMITIES: 2+ pulses, warm, well-perfused. No calf tenderness. No peripheral edema. NEUROLOGICAL: Normal speech. Moving all extremities spontaneously SKIN: Warm, dry, normal turgor, no rashes or lesions noted, normal capillary refill. Laboratory Results - last 24 hr 12/29/19 12/29/19 12/29/19 20:34 21:20 21:20 WBC 9.3 RBC 5.05 Hgb 13.5 Hct 42.1 D MCV 83.3 MCH 26.8 MCHC 32.2 RDW 15.8 Plt Count 204 D MPV 8.2 Absolute Neuts (auto) 7.4 Neutrophils % 79.8 Lymphocytes % 13.4 D Monocytes % 6.2 Eosinophils % 0.2 Basophils % 0.4 Nucleated RBC % 0 PT with INR 12.80 INR 1.08 PTT (Actin FS) 30.2 Sodium 139 Potassium 5.0 Chloride 105 Carbon Dioxide 20 L Anion Gap 15 BUN 12.9 Creatinine 1.1 Est GFR (CKD-EPI)AfAm 77.86 Est GFR (CKD-EPI)NonAf 67.18 Random Glucose 111 H Lactic Acid Calcium 9.7 Phosphorus 3.4 Magnesium 2.1 Total Bilirubin 0.8 AST 23 ALT 14 Alkaline Phosphatase 58 Total Protein 8.1 Albumin 4.3 Lipase 49 L Blood Type Antibody Screen 12/29/19 12/29/19 21:20 21:20 WBC RBC Hgb Hct MCV MCH MCHC RDW Plt Count MPV Absolute Neuts (auto) Neutrophils % Lymphocytes % Monocytes % Eosinophils % Basophils % Nucleated RBC % PT with INR INR PTT (Actin FS) Sodium Potassium Chloride Carbon Dioxide Anion Gap BUN Creatinine Est GFR (CKD-EPI)AfAm Est GFR (CKD-EPI)NonAf Random Glucose Lactic Acid 1.5 Calcium Phosphorus Magnesium Total Bilirubin AST ALT Alkaline Phosphatase Total Protein Albumin Lipase Blood Type A POSITIVE Antibody Screen Negative ASSESSMENT/PLAN: 69 yo M PMH COPD, s/p appendectomy, hepatitis C, 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 Expresses concern that he is having pain similiar to his SBO symptoms from a couple of years prior. Last flatus or BM was 2d prior. PHysical with distended abd, imaging showing SBO. Admited for SBO. #SBO --likely 2/2 abdominal adhesions > Tmax 100.1F, HR 104-110, BP 123/88 > CT A/P: SBM w/ small bowel dilated up to 4.0cm; no abscess or free air. The colon is collapse. Transition point may be in the Left mid lower - NGT to LWS - strict NPO - pain mgmt: morphine - surgery consult(Pradip): --recs pending #COPD - albuterol PRN - cw home advair - nicotine patch PRN FEN - LR @125 - strict NPO DVT PPX - SCDs Family Medical History Family History: Denies Visit type - Medication Review Med list reviewed for High Risk Meds patients 65 and older: No (pt doesn't know his meds) - Emergency Visit Emergency Visit: Yes ED Registration Date: 12/30/19 Care time: The patient presented to the Emergency Department on the above date and was hospitalized for further evaluation of their emergent condition. - New Patient This patient is new to me today: Yes Date on this admission: 12/30/19 - Critical Care Critical Care patient: No ATTENDING PHYSICIAN STATEMENT I saw and evaluated the patient. I reviewed the resident's note and discussed the case with the resident. I agree with the resident's findings and plan as documented. SUBJECTIVE: OBJECTIVE: ASSESSMENT AND PLAN:
[2019-12-30] MEDS ORDERED: MORPHINE SULFATE 2 MG/ML VIAL ONE ×2 (06:01→15:41)
[2019-12-30] MEDS: MORPHINE SULFATE 2 MG/ML VIAL IVPUSH PRN ×2 (06:21→15:48)
--- NOTE | 2019-12-30 06:22 | PN ---
Teaching Attending Note Name of Resident: Daniel Bagley ATTENDING PHYSICIAN STATEMENT I saw and evaluated the patient. I reviewed the resident's note and discussed the case with the resident. I agree with the resident's findings and plan as documented. SUBJECTIVE: 69 years old M with PMH of COPD, s/p appendectomy, hepatitis C, recurrent SBO (s/p NHI 10/15/17) presented to Ed with diffuse abdominal pain, nausea and vomiting since last night. he was unable to tolerate PO. He reports the similar abd pain as previous SBO. he denies chest pain, SOB, dizziness, LOC OBJECTIVE: Last Vital Signs Temp Pulse Resp BP Pulse Ox 100.1 F H 110 H 16 101/72 95 12/30/19 02:24 12/30/19 02:24 12/30/19 02:24 12/30/19 02:24 12/30/19 02:24 GENERAL: Awake, alert, and fully oriented,cachectic, not in acute distress HEAD: No signs of trauma, normocephalic, atraumatic EYES: EOMI, sclera anicteric, conjunctiva clear ENT: Auricles normal inspection, hearing grossly normal, nares patent, oropharynx clear without exudates. Moist mucosa NECK: Normal ROM, no lymphadenopathy LUNGS: No increased work of breathing, symmetrical chest rise, clear to auscultation bilaterally, no wheezes, crackles or rhonchi HEART: Regular rate, regular rhythm, normal S1 and S2, no murmur, peripheral pulses 2+ and equal bilaterally. ABDOMEN: Soft, distended, diffuse abd tenderness, + guarding MUSCULOSKELETAL: FROM, no edema NEUROLOGICAL: Cranial nerves II through XII grossly intact. 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 DVt ppx resume home meds Seen and discussed with resident staff
[2019-12-30 06:49] LABS: BASO % 0.3 % (0-2.0); EOS % 0.5 % (0-4.5); HEMATOCRIT 36.6 % (35.4-49); HEMOGLOBIN 11.6 GM/dL (11.7-16.9); LYMPH % 22.8 % (8-40); MCH 26.5 pg (25.7-33.7); MCHC 31.8 g/dl (32.0-35.9); MEAN CELL VOLUME 83.3 fl (80-96); MEAN PLT VOLUME 8.9 fl (7.5-11.1); MONO % 10.7 % (3.8-10.2); NEUT % 65.7 % (42.8-82.8); PLATELET COUNT 193 K/MM3 (134-434); RBC 4.39 M/mm3 (4.00-5.60); RDW 15.8 % (11.9-15.9); WHITE BLOOD COUNT 5.6 K/mm3 (4.0-10.0)
--- NOTE | 2019-12-30 07:30 | CONSULT ---
- Consultation REQUESTING PROVIDER: CONSULT REQUEST: We have been asked to surgically evaluate this patient for abd pain with n/v. PCP: Bao Mariscal MD History Provided By: Patient, Medical Record Limitations to Obtaining History: No Limitations HPI: Called to evcarlos 69yo male with PMHx as noted below...significant for multiple abd surgeries (recurrent sbo). Patient is well known to the Surgery Service as we have cared for him in the past. S/p multiple laparotomies with resections (last 10/15/[address] Lim). Presents to [facility] ED for evaluation of his diffuse abd pain w/ associated n/v that began last night. States he's unable to tolerate any PO (liquid or solid). Very similar presentation to his previous visits. While in the ED he had an ABD/Pelvis CT scan which identified small bowel dilated up to 4.0cm; no abscess or free air. The colon is collapse. Transition point may be in the left mid lower abd. NGT inserted by ED attending w/ NGT 1.2L of thick green output. T 100.1F (oral) at 2AM in ED). Denies CP, palpitations, SOB or THURMAN. Denies diarrhea, constipation, melena or hematochezia. Denies hematuria, flank pain or genital pain. Denies recent travel, sick contacts or trauma. PMHx: COPD. Recurrent SBO. Hepatitis C. Chronic LBP. Osteoarthritis PSHx: Laparotomy for free air after colonoscopy 2012 Laparotomy with revision of SB anastomosis for SBO 2013 Laparotomy with NHI for SBO 10/15/2017 Appendectomy Colonoscopy Right Inguinal Hernia Repair (unknown if mesh used). Skull surgery for CSF leak ACDF? (Transverse cervical scar; patient states he has a plate in his neck) Home Meds Ipratropium/Albuterol Sulfate 4 gm IH BID Fluticasone/Salmeterol 1 each IH BID Gabapentin 300 mg PO HS Trazodone HCl 50 mg PO HS PRN Colace 100 mg PO BID Mirilax 17 gm PO daily Doxepin HCL 75 mg PO daily Mirtazapine 30 mg PO daily Allergies: NKDA ROS: CONSTITUTIONAL: Absent: chills, diaphoresis, malaise, + loss of appetite, weight change CARDIOVASCULAR: Absent:syncope, irregular heart rate, lightheadedness RESPIRATORY: Absent: cough, wheezing, stridor, hemoptysis GASTROINTESTINAL:SEE HPI GENITOURINARY: Absent: frequency, urgency, hesitancy MUSCULOSKELETAL: Absent: myalgia, arthralgia, joint swelling, back pain, neck pain SKIN: Absent: rash, itching, pallor HEMATOLOGIC/IMMUNOLOGIC: Absent: easy bleeding, easy bruising, lymphadenopathy NEUROLOGIC: Absent: headache, focal weakness, paresthesias, dizziness, unsteady gait, seizure, mental status changes PSYCHIATRIC: Absent: anxiety, depression, suicidal or homicidal ideation, hallucinations. PE: GENERAL: A&O. NAD HEAD: NC. AT. EYES: PERRL, sclera anicteric, conjunctiva clear. NECK: Normal ROM, supple without lymphadenopathy, JVD, or masses. LUNGS: Unlabored respirations on room air HEART: RRR ABD: Soft, not distended, bowel sounds absent. Mild ttp. No rebound/rigidity. No palpable/pulsatile mass. No HSM appreciated RECTAL: Sphincter tone intact. No stool in rectal vault MUSCULOSKELETAL: No CVAT bilat UE: 2+ pulses, warm, well-perfused. No cyanosis. Cap refill <2 seconds. No peripheral edema. LE: 2+ pulses, warm, well-perfused. No calf tenderness. No peripheral edema. NEUROLOGICAL: Normal speech, gait not observed. PSYCH: Cooperative. Good eye contact. Appropriate mood and affect. SKIN: Warm, dry, normal turgor, no rashes or lesions noted. Last Vital Signs Temp Pulse Resp BP Pulse Ox 100.1 F H 97 H 18 103/72 97 12/30/19 02:24 12/30/19 06:22 12/30/19 06:22 12/30/19 06:22 12/30/19 06:22 CBC, BMP 12/30/19 05:30 12/29/19 21:20 INR, PTT INR 1.08 (0.83-1.09) 12/29/19 20:34 Blood Type Blood Type A POSITIVE 12/29/19 21:20 Serology Test 12/30/19 04:30 COVID-19 (WENDI) Pending A/P: 69 yo male admitted with recurrent SBO. + h/o prior surgical management after conservative measures failed for same problem. Currently, patient has SBO as identified on ABD CT with collapsed colon and ? zone of transition in left- mid lower abd. No leukocytosis. AVSS. Non-toxic appearing. -NPO -IVF -Monitor elytes and replete prn -Antiemetics -GI PPx -DVT PPx -Serial ABD exams -Serial AXRs (flat & upright) -Monitor NGT output and record q shift -Medical optimization -Cardio Consult (in case we need to take him for surgery) Above plan discussed with my Dr. Moseley and agrees. Problem List - Problems (1) SBO (small bowel obstruction) Code(s): K56.609 - UNSP INTESTNL OBST, UNSP TO PARTIAL VERSUS COMPLETE OBST (2) COPD (chronic obstructive pulmonary disease) Code(s): J44.9 - CHRONIC OBSTRUCTIVE PULMONARY DISEASE, UNSPECIFIED Qualifiers: COPD type: unspecified COPD Qualified Code(s): J44.9 - Chronic obstructive pulmonary disease, unspecified (3) Hepatitis C, chronic Code(s): B18.2 - CHRONIC VIRAL HEPATITIS C Qualifiers: Hepatic coma status: without hepatic coma Qualified Code(s): B18.2 - Chronic viral hepatitis C Visit type - Case Type Case Type: ED Admission - Emergency Emergency Visit: Yes ED Registration Date: 12/30/19 Care time: The patient presented to the Emergency Department on the above date and was hospitalized for further evaluation of their emergent condition. - New patient This patient is new to me today: Yes Date on this admission: 12/30/19
[2019-12-30] MEDS ORDERED: HEPARIN NA (PORCINE) 5,000 UNITS/ML 1ML VIAL ONE ×2 (11:08→18:34)
[2019-12-30] MEDS ORDERED: PANTOPRAZOLE SODIUM 40 MG VIAL ONE (11:08)
[2019-12-30] MEDS: HEPARIN NA (PORCINE) 5,000 UNITS/ML 1ML VIAL SQ SCH ×3 (11:17→22:50)
[2019-12-30] MEDS: PANTOPRAZOLE SODIUM 40 MG VIAL IVPUSH SCH (11:18)
[2019-12-30] MEDS ORDERED: ACETAMINOPHEN INJECTION 100 ML IVPB ONE ×2 (11:55→18:33)
[2019-12-30] MEDS: ACETAMINOPHEN 1000 MG/100 ML VIAL (NON FORMULARY) IVPB SCH ×2 (12:18→18:49)
[2019-12-30] MEDS: FLUTICASONE/SALMETEROL 100 MCG/50 MCG DISKUS IH SCH (12:46)
[2019-12-30] MEDS: NICOTINE 14 MG/24 HOURS TOPICAL PATCH TD SCH (12:46)
--- NOTE | 2019-12-30 15:44 | PN ---
Physical Exam: SUBJECTIVE: Patient seen and examined. Pt. denies any acute complaints. Pt. denies any abdominal pain. Pt. had 1.2L + thick green output. Pt. denies passing gas or stool over the last 3 days. OBJECTIVE: Vital Signs Period Temp Pulse Resp BP Sys/Monsalve Pulse Ox Last 24 Hr 98.6 F-100.1 F 85-110 16-20 99-123/68-88 93-97 GENERAL: The patient is awake, alert, and fully oriented, in no acute distress. HEAD: Normal with no signs of trauma. EYES: Sclera anicteric, conjunctiva clear. ENT: Ears normal, nares patent, oropharynx clear without exudates, Dry mucous membranes. NECK: Trachea midline, full range of motion, supple. LUNGS: Breath sounds equal, clear to auscultation bilaterally, no wheezes, no crackles, no accessory muscle use. HEART: Regular rate and rhythm, S1, S2 without murmur, rub or gallop. ABDOMEN: Firm but NOT rigid, nontender, nondistended, bowel sounds absent, no guarding, no rebound, no hepatosplenomegaly, no masses. EXTREMITIES: 2+ dorsal pedal pulses, no calf tenderness, warm, well-perfused, no edema. NEUROLOGICAL: Normal speech, gait not observed. PSYCH: Normal mood, normal affect. SKIN: Warm, dry, normal turgor Laboratory Results - last 24 hr 12/29/19 12/29/19 12/29/19 20:34 21:20 21:20 WBC 9.3 RBC 5.05 Hgb 13.5 Hct 42.1 D MCV 83.3 MCH 26.8 MCHC 32.2 RDW 15.8 Plt Count 204 D MPV 8.2 Absolute Neuts (auto) 7.4 Neutrophils % 79.8 Lymphocytes % 13.4 D Monocytes % 6.2 Eosinophils % 0.2 Basophils % 0.4 Nucleated RBC % 0 PT with INR 12.80 INR 1.08 PTT (Actin FS) 30.2 Sodium 139 Potassium 5.0 Chloride 105 Carbon Dioxide 20 L Anion Gap 15 BUN 12.9 Creatinine 1.1 Est GFR (CKD-EPI)AfAm 77.86 Est GFR (CKD-EPI)NonAf 67.18 Random Glucose 111 H Lactic Acid Calcium 9.7 Phosphorus 3.4 Magnesium 2.1 Total Bilirubin 0.8 AST 23 ALT 14 Alkaline Phosphatase 58 Total Protein 8.1 Albumin 4.3 Lipase 49 L TSH Blood Type Antibody Screen 12/29/19 12/29/19 12/30/19 21:20 21:20 05:30 WBC 5.6 RBC 4.39 Hgb 11.6 L Hct 36.6 MCV 83.3 MCH 26.5 MCHC 31.8 L RDW 15.8 Plt Count 193 MPV 8.9 Absolute Neuts (auto) 3.7 Neutrophils % 65.7 Lymphocytes % 22.8 D Monocytes % 10.7 H Eosinophils % 0.5 D Basophils % 0.3 Nucleated RBC % 0 PT with INR INR PTT (Actin FS) Sodium Potassium Chloride Carbon Dioxide Anion Gap BUN Creatinine Est GFR (CKD-EPI)AfAm Est GFR (CKD-EPI)NonAf Random Glucose Lactic Acid 1.5 Calcium Phosphorus Magnesium Total Bilirubin AST ALT Alkaline Phosphatase Total Protein Albumin Lipase TSH Blood Type A POSITIVE Antibody Screen Negative 12/30/19 05:30 WBC RBC Hgb Hct MCV MCH MCHC RDW Plt Count MPV Absolute Neuts (auto) Neutrophils % Lymphocytes % Monocytes % Eosinophils % Basophils % Nucleated RBC % PT with INR INR PTT (Actin FS) Sodium Potassium Chloride Carbon Dioxide Anion Gap BUN Creatinine Est GFR (CKD-EPI)AfAm Est GFR (CKD-EPI)NonAf Random Glucose Lactic Acid Calcium Phosphorus Magnesium Total Bilirubin AST ALT Alkaline Phosphatase Total Protein Albumin Lipase TSH 1.37 D Blood Type Antibody Screen Active Medications Generic Name Dose Route Start Last Admin Trade Name Freq PRN Reason Stop Dose Admin Acetaminophen 750 mg 12/30/19 12:00 12/30/19 12:18 Ofirmev Injection - IVPB 750 mg Q6H EMILY Administration Albuterol Sulfate 2 puff 12/30/19 03:51 Ventolin Hfa Inhaler - IH Q4H PRN SHORT OF BREATH/WHEEZING Heparin Sodium (Porcine) 5,000 unit 12/30/19 11:00 12/30/19 11:17 Heparin - SQ 5,000 unit TID EMILY Administration Lactated Ringer's 1,000 ml in 1,000 mls @ 125 mls/hr 12/30/19 00:15 12/30/19 00:33 Lactated Ringers Solution IV 125 mls/hr ASDIR EMILY Administration Dextrose/Sodium Chloride 1,000 mls @ 83 mls/hr 12/30/19 02:45 12/30/19 03:05 D5-Ns - IV 83 mls/hr ASDIR EMILY Administration Morphine Sulfate 2 mg 12/30/19 03:48 12/30/19 06:21 Morphine Sulfate IVPUSH 2 mg Q6H PRN Administration PAIN LEVEL 6-10 Nicotine 14 mg 12/30/19 10:00 12/30/19 12:46 Nicoderm Patch - TD 14 mg DAILY EMILY Administration Pantoprazole Sodium 40 mg 12/30/19 11:00 12/30/19 11:18 Protonix Iv IVPUSH 40 mg DAILY EMILY Administration Fluticasone/Salmeterol 1 puff 12/30/19 10:00 12/30/19 12:46 Advair 100mcg/50mcg - IH 1 puff BID EMILY Administration ASSESSMENT/PLAN: Pt. is a 69 y.o. M w/ PMHx. 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 Expresses concern that he is having pain similar to his SBO symptoms from a couple of years prior. Last flatus or BM was 2d prior. CT imaging showing SBO. Admitted for SBO. #SBO --likely 2/2 abdominal adhesions - Tmax 100.1F, HR 104-110, BP 123/88 - CT A/P: High-grade SBO, difficult to determine transition point - NGT to LWS - strict NPO - pain mgmt: morphine - Surgery consult(Pradip) appreciated - Cardiology consult appreciated for clearance for possible NHI #COPD - albuterol PRN - c/w home advair - nicotine patch PRN #FEN - LR @125 - monitor and replete as needed - strict NPO #DVT PPX - SCDs Visit type - Emergency Visit Emergency Visit: Yes ED Registration Date: 12/30/19 Care time: The patient presented to the Emergency Department on the above date and was hospitalized for further evaluation of their emergent condition. - New Patient This patient is new to me today: No - Critical Care Critical Care patient: No - Discharge Referral Referred to [facility] Med P.C.: No - Medication Review Med list reviewed for High Risk Meds patients 65 and older: Yes ATTENDING PHYSICIAN STATEMENT I saw and evaluated the patient. I reviewed the resident's note and discussed the case with the resident. I agree with the resident's findings and plan as documented. SUBJECTIVE: OBJECTIVE: ASSESSMENT AND PLAN:
[2019-12-30 17:41] LABS: PH,URINE 5.5 (5.0-8.0); URINE APPEARANCE CLEAR; URINE BILIRUBIN NEGATIVE (NEGATIVE); URINE COLOR YELLOW; URINE GLUCOSE (UA) NEGATIVE (NEGATIVE); URINE KETONE TRACE (NEGATIVE); URINE LEUK ESTERASE NEGATIVE (NEGATIVE); URINE NITRITE NEGATIVE (NEGATIVE); URINE PROTEIN NEGATIVE (NEGATIVE); URINE RBC 22.7 /uL (0-23.9); URINE WBC 4.8 /uL (0-25.8)
[2019-12-30 17:42] LABS: HYALINE CASTS 1.79 /uL (0-3.1); URINE BACTERIA 13.3 /uL (0-1359)
[2019-12-31] MEDS: ACETAMINOPHEN 1000 MG/100 ML VIAL (NON FORMULARY) IVPB SCH ×4 (00:19→18:43)
[2019-12-31] MEDS: LACTATED RINGERS SOLUTION 1,000 ML/1,000 ML INFUS.BAG IV SCH ×2 (00:21→22:04)
[2019-12-31 01:47] VITALS: BMI 17.1
[2019-12-31] MEDS: MORPHINE SULFATE 2 MG/ML VIAL IVPUSH PRN ×3 (01:48→17:36)
[2019-12-31] MEDS: FLUTICASONE/SALMETEROL 100 MCG/50 MCG DISKUS IH SCH ×3 (01:49→22:05)
[2019-12-31] MEDS: DEXTROSE 5%-NORMAL SALINE 1,000 ML IV SCH (03:21)
[2019-12-31] MEDS ORDERED: PT OWN MED DRAWER 7, Y5N ONE (03:45)
[2019-12-31] MEDS: HEPARIN NA (PORCINE) 5,000 UNITS/ML 1ML VIAL SQ SCH (05:46)
[2019-12-31 08:10] LABS: ALBUMIN 2.7 g/dl (3.4-5.0); BILIRUBIN,TOTAL 0.7 mg/dL (0.2-1); BLOOD UREA NITROGEN 10.5 mg/dL (7-18); CALCIUM 7.9 mg/dL (8.5-10.1); CREATININE 0.7 mg/dL (0.55-1.3); MAGNESIUM 1.7 mg/dL (1.8-2.4); POTASSIUM 3.5 mmol/L (3.5-5.1)
[2019-12-31 08:12] LABS: BASO % 0.4 % (0-2.0); HEMATOCRIT 29.8 % (35.4-49); HEMOGLOBIN 9.7 GM/dL (11.7-16.9); LYMPH % 31.4 % (8-40); MCH 27.1 pg (25.7-33.7); MCHC 32.6 g/dl (32.0-35.9); MEAN CELL VOLUME 83.1 fl (80-96); MEAN PLT VOLUME 8.4 fl (7.5-11.1); MONO % 10.9 % (3.8-10.2); NEUT % 55.3 % (42.8-82.8); PLATELET COUNT 150 K/MM3 (134-434); RBC 3.59 M/mm3 (4.00-5.60); RDW 15.6 % (11.9-15.9); WHITE BLOOD COUNT 5.8 K/mm3 (4.0-10.0)
[2019-12-31 08:13] LABS: TOT PROT 5.3 g/dl (6.4-8.2)
[2019-12-31 08:15] LABS: INR 1.27 (0.83-1.09)
--- NOTE | 2019-12-31 09:35 | CON.CARD ---
Consult Consult Specialty:: Cardiology Referred by:: Hospitalist Service Reason for Consultation:: Cardiac evaluation - History of Present Illness Chief Complaint: Abdominal pain with SBO History of Present Illness: Patient is a 69 year old male with underlying hisory of COPD, hepatitis C, recurrent SBO, previous appendectomy who presents again with severe diffuse abdominal pain left quadrant. He denies chest pain, shortness of breath or palpitations. He denies PND or orthopnea. He denies fever or chills. He denies headache or lightheadedness. He started to have abdominal discomfort Sunday with fullness and then nausea and vomiting. Cardiology consultation was called for clearance in case he has be taken for surgery. Currently he presents again with SBO. - History Source History Provided By: Patient, Medical Record Limitations to Obtaining History: No Limitations - Past Medical History Pulmonary: Yes: COPD Gastrointestinal: Yes: Other (recurrent SBO - s/p SB resection for SBO, revision of SB anastomosis for SBO) Hepatobiliary: Yes: Hepatitis C Musculoskeletal: Yes: Chronic low back pain, Osteoarthritis (uses walker at home) - Past Surgical History Past Surgical History: Yes: Appendectomy, Colonoscopy, Hernia Repair (right inguinal (unknown if mesh used)) - Alcohol/Substance Use Hx Alcohol Use: Yes (quit a few years ago, rarely now) History of Substance Use: reports: Prescription (uses Rx oxycodone/pain meds as prescribed). denies: Marijuana (has medical MJ card but has not used any yet) - Smoking History Smoking history: Current some day smoker Have you smoked in the past 12 months: No Aproximately how many cigarettes per day: 4 If you are a former smoker, when did you quit?: 1 yr ago - Social History ADL: Independent History of Recent Travel: No Home Medications - Allergies Allergies/Adverse Reactions: Allergies Allergy/AdvReac Type Severity Reaction Status Date / Time No Known Allergies Allergy Verified 12/29/19 19:13 - Home Medications Home Medications: Ambulatory Orders Ipratropium/Albuterol Sulfate [Combivent Respimat 20-100 Mcg] 4 gm IH BID 10/13/17 Fluticasone/Salmeterol [Advair 250-50 Diskus] 1 each IH BID 06/15/19 Gabapentin [Neurontin] 300 mg PO HS 06/15/19 traZODone HCL [Trazodone HCl] 50 mg PO HS PRN 06/15/19 Docusate Sodium [Colace -] 100 mg PO BID #60 capsule 06/26/19 Polyethylene Glycol 3350 [Miralax 119 gm Btl -] 17 gm PO DAILY #1 bottle 06/27/19 Doxepin HCl 75 mg PO DAILY 06/30/19 Mirtazapine 30 mg PO DAILY 06/30/19 Review of Systems - Review of Systems Constitutional: denies: Chills, Fever Cardiovascular: denies: Chest Pain, Palpitations, Shortness of Breath Respiratory: denies: Cough, Hemoptysis, Orthopnea, PND, SOB, SOB on Exertion Gastrointestinal: reports: Abdominal Pain, Nausea, Vomiting. denies: Diarrhea, Melena, Rectal Bleeding Musculoskeletal: denies: Back Pain, Joint Pain Neurological: denies: Dizziness, Headache, Seizure, Syncope Vital Signs: Vital Signs Temperature 98.3 F 12/31/19 06:00 Pulse Rate 59 L 12/31/19 06:00 Respiratory Rate 20 12/31/19 06:00 Blood Pressure 103/64 12/31/19 06:00 O2 Sat by Pulse Oximetry (%) 94 L 12/31/19 06:00 Neck: Yes: Supple Respiratory: Yes: CTA Bilaterally Gastrointestinal: Yes: Hypoactive Bowel Sounds, Tenderness Cardiovascular: Yes: Regular Rate and Rhythm JVD: No PMI: Non-Displaced Heart Sounds: Yes: S1, S2. No: Gallop Edema: No - Other Data Labs, Other Data: CBC, BMP 12/31/19 06:25 12/31/19 06:25 INR, PTT INR 1.27 (0.83-1.09) H 12/31/19 06:25 Laboratory Results - last 24 hr 12/30/19 12/31/19 12/31/19 12:05 06:25 06:25 WBC 5.8 RBC 3.59 L Hgb 9.7 L Hct 29.8 L D MCV 83.1 MCH 27.1 MCHC 32.6 RDW 15.6 Plt Count 150 D MPV 8.4 Absolute Neuts (auto) 3.2 Neutrophils % 55.3 Lymphocytes % 31.4 D Monocytes % 10.9 H Eosinophils % 2.0 D Basophils % 0.4 Nucleated RBC % 0 PT with INR INR Sodium 143 Potassium 3.5 Chloride 110 H Carbon Dioxide 27 Anion Gap 6 L BUN 10.5 Creatinine 0.7 Est GFR (CKD-EPI)AfAm 110.04 Est GFR (CKD-EPI)NonAf 94.95 Random Glucose 66 L Calcium 7.9 L Phosphorus 3.0 Magnesium 1.7 L Total Bilirubin 0.7 AST 11 L ALT 8 L Alkaline Phosphatase 38 L Total Protein 5.3 L Albumin 2.7 L Urine Color Yellow Urine Appearance Clear Urine pH 5.5 Ur Specific [place] 1.075 H Urine Protein Negative Urine Glucose (UA) Negative Urine Ketones Trace H Urine Blood Negative Urine Nitrite Negative Urine Bilirubin Negative Urine Urobilinogen 1.0 Ur Leukocyte Esterase Negative Urine WBC (Auto) 4.8 Urine RBC (Auto) 22.7 Urine Casts (Auto) 1.79 U Epithel Cells (Auto) 6.0 Urine Bacteria (Auto) 13.3 No EKG done Problem List - Problems (1) SBO (small bowel obstruction) Code(s): K56.609 - UNSP INTESTNL OBST, UNSP TO PARTIAL VERSUS COMPLETE OBST (2) COPD (chronic obstructive pulmonary disease) Code(s): J44.9 - CHRONIC OBSTRUCTIVE PULMONARY DISEASE, UNSPECIFIED Qualifiers: COPD type: unspecified COPD Qualified Code(s): J44.9 - Chronic obstructive pulmonary disease, unspecified (3) Abdominal pain Code(s): R10.9 - UNSPECIFIED ABDOMINAL PAIN Qualifiers: Abdominal location: right lower quadrant Qualified Code(s): R10.31 - Right lower quadrant pain Assessment/Plan 1. SBO, recurrent 2. COPD PLAN: 1. EKG 2. No need for any further cardiac testing. Patient is not on any cardiac medi cation and has no cardiac history 3. No absolute contraindication for surgery (if he has to be taken to OR) in view of absence of ischemic symptoms, decompensated congestive heart failure or malignant arrhythmias 4. Surgery follow up Durga Perdomo MD
[2019-12-31] MEDS: PANTOPRAZOLE SODIUM 40 MG VIAL IVPUSH SCH (10:25)
[2019-12-31] MEDS: NICOTINE 14 MG/24 HOURS TOPICAL PATCH TD SCH (10:28)
--- NOTE | 2019-12-31 11:45 | PN ---
Progress Note (short form) - Note Progress Note: SURGERY 69yo M admitted for SBO, with h/o multiple SBO and abd surgeries. Pt today states his abd feels better. Pt denies fever, chills, n/v. Pt complains of some LLQ tenderness. States he is hungry and would like to eat. Last Vital Signs Temp Pulse Resp BP Pulse Ox 97.8 F 51 L 19 121/73 100 12/31/19 10:33 12/31/19 10:33 12/31/19 10:33 12/31/19 10:33 12/31/19 10:33 CBC, BMP 12/31/19 06:25 12/31/19 06:25 PE: Gen: A&O X3 Resp: breathing comfortably Abd: soft, nondistended, LLQ tenderness HEENT: NGT in place with yellow drainage, about 150ml in canister <Juaquin Ford - Last Filed: 12/31/19 13:49> - Note Progress Note: Attending Surgeon: I personally saw and examined the patient. My examination reveals a patient with a small bowel obstruction. I discussed the case with the surgical PA and agree with their findings and plan of care with any exceptions as noted. ~ Rodrigo Moseley MD, FACS <Rodrigo Moseley - Last Filed: 01/02/20 09:52> Problem List - Problems (1) SBO (small bowel obstruction) Assessment/Plan: Plan -Abd x-ray shows some improvement, as well as decrease in NGT output, will place NGT to gravity -if pt continues improving will plan to remove NGT tomorrow and try clears -continue NPO/IVF for now. Pt seen and discussed with Dr. Moseley who agrees with plan Code(s): K56.609 - UNSP INTESTNL OBST, UNSP TO PARTIAL VERSUS COMPLETE OBST <Juaquin Ford - Last Filed: 12/31/19 13:49>
--- NOTE | 2019-12-31 13:26 | EKG ---
Test Reason : Blood Pressure : / mmHG Vent. Rate : 051 BPM Atrial Rate : 051 BPM P-R Int : 146 ms QRS Dur : 078 ms QT Int : 462 ms P-R-T Axes : 078 077 073 degrees QTc Int : 425 ms SINUS BRADYCARDIA OTHERWISE NORMAL ECG WHEN COMPARED WITH ECG OF 28-JUN-2019 06:50, VENT. RATE HAS DECREASED BY 36 BPM T WAVE AMPLITUDE HAS INCREASED IN ANTERIOR LEADS Confirmed by MD Jayant, Vick ([id number]) on 12/31/2019 1:25:32 PM Referred By: Heath LUEVANO Confirmed By:Vick Saba MD
--- NOTE | 2019-12-31 17:32 | PN ---
Physical Exam: SUBJECTIVE: Patient seen and examined. Pt. states he feels better today. Pt. still with abdominal pain but endorses passing gas today. Pt. denies any nausea or vomiting. OBJECTIVE: Vital Signs Period Temp Pulse Resp BP Sys/Monsalve Pulse Ox Last 24 Hr 97.8 F-98.6 F 51-78 18-20 103-121/64-74 93-100 GENERAL: The patient is awake, alert, and fully oriented, in no acute distress. HEAD: Normal with no signs of trauma. EYES: Sclera anicteric, conjunctiva clear. ENT: Ears normal, nares patent, oropharynx clear without exudates, Dry mucous membranes. NECK: Trachea midline, full range of motion, supple. LUNGS: Breath sounds equal, clear to auscultation bilaterally, no wheezes, no crackles, no accessory muscle use. HEART: Regular rate and rhythm, S1, S2 without murmur, rub or gallop. ABDOMEN: Firm but NOT rigid, LLQ and LUQ tenderness to palpation (admittedly I pressed harder today to elicit a reaction), nondistended, bowel sounds present, no guarding, no rebound, no hepatosplenomegaly, no masses. EXTREMITIES: 2+ dorsal pedal pulses, no calf tenderness, warm, well-perfused, no edema. NEUROLOGICAL: Normal speech, gait not observed. PSYCH: Normal mood, normal affect. SKIN: Warm, dry, normal turgor Laboratory Results - last 24 hr 12/30/19 12/30/19 12/31/19 04:30 12:05 06:25 WBC RBC Hgb Hct MCV MCH MCHC RDW Plt Count MPV Absolute Neuts (auto) Neutrophils % Lymphocytes % Monocytes % Eosinophils % Basophils % Nucleated RBC % PT with INR INR Sodium 143 Potassium 3.5 Chloride 110 H Carbon Dioxide 27 Anion Gap 6 L BUN 10.5 Creatinine 0.7 Est GFR (CKD-EPI)AfAm 110.04 Est GFR (CKD-EPI)NonAf 94.95 Random Glucose 66 L Calcium 7.9 L Phosphorus 3.0 Magnesium 1.7 L Total Bilirubin 0.7 AST 11 L ALT 8 L Alkaline Phosphatase 38 L Total Protein 5.3 L Albumin 2.7 L Urine Color Yellow Urine Appearance Clear Urine pH 5.5 Ur Specific [place] 1.075 H Urine Protein Negative Urine Glucose (UA) Negative Urine Ketones Trace H Urine Blood Negative Urine Nitrite Negative Urine Bilirubin Negative Urine Urobilinogen 1.0 Ur Leukocyte Esterase Negative Urine WBC (Auto) 4.8 Urine RBC (Auto) 22.7 Urine Casts (Auto) 1.79 U Epithel Cells (Auto) 6.0 Urine Bacteria (Auto) 13.3 COVID-19 ([facility]) Not detected 12/31/19 12/31/19 06:25 06:25 WBC 5.8 RBC 3.59 L Hgb 9.7 L Hct 29.8 L D MCV 83.1 MCH 27.1 MCHC 32.6 RDW 15.6 Plt Count 150 D MPV 8.4 Absolute Neuts (auto) 3.2 Neutrophils % 55.3 Lymphocytes % 31.4 D Monocytes % 10.9 H Eosinophils % 2.0 D Basophils % 0.4 Nucleated RBC % 0 PT with INR 15.00 H INR 1.27 H Sodium Potassium Chloride Carbon Dioxide Anion Gap BUN Creatinine Est GFR (CKD-EPI)AfAm Est GFR (CKD-EPI)NonAf Random Glucose Calcium Phosphorus Magnesium Total Bilirubin AST ALT Alkaline Phosphatase Total Protein Albumin Urine Color Urine Appearance Urine pH Ur Specific [place] Urine Protein Urine Glucose (UA) Urine Ketones Urine Blood Urine Nitrite Urine Bilirubin Urine Urobilinogen Ur Leukocyte Esterase Urine WBC (Auto) Urine RBC (Auto) Urine Casts (Auto) U Epithel Cells (Auto) Urine Bacteria (Auto) COVID-19 ([facility]ENDI) Active Medications Generic Name Dose Route Start Last Admin Trade Name Freq PRN Reason Stop Dose Admin Acetaminophen 750 mg 12/30/19 12:00 12/31/19 12:56 Ofirmev Injection - IVPB 750 mg Q6H EMILY Administration Albuterol Sulfate 2 puff 12/30/19 03:51 Ventolin Hfa Inhaler - IH Q4H PRN SHORT OF BREATH/WHEEZING Heparin Sodium (Porcine) 5,000 unit 12/30/19 11:00 12/31/19 05:46 Heparin - SQ 5,000 unit TID EMILY Administration Lactated Ringer's 1,000 ml in 1,000 mls @ 125 mls/hr 12/30/19 00:15 12/31/19 00:21 Lactated Ringers Solution IV 125 mls/hr ASDIR EMILY Administration Dextrose/Sodium Chloride 1,000 mls @ 83 mls/hr 12/30/19 02:45 12/31/19 03:21 D5-Ns - IV Not Given ASDIR EMILY Morphine Sulfate 2 mg 12/30/19 03:48 12/31/19 08:19 Morphine Sulfate IVPUSH 2 mg Q6H PRN Administration PAIN LEVEL 6-10 Nicotine 14 mg 12/30/19 10:00 12/31/19 10:28 Nicoderm Patch - TD 14 mg DAILY EMILY Administration Pantoprazole Sodium 40 mg 12/30/19 11:00 12/31/19 10:25 Protonix Iv IVPUSH 40 mg DAILY EMILY Administration Fluticasone/Salmeterol 1 puff 12/30/19 10:00 12/31/19 10:28 Advair 100mcg/50mcg - IH 1 puff BID EMILY Administration ASSESSMENT/PLAN: Pt. is a 69 y.o. M w/ PMHx. 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 Expresses concern that he is having pain similar to his SBO symptoms from a couple of years prior. Last flatus or BM was 2d prior to admission. CT imaging showing SBO. Admitted for SBO. #SBO --likely 2/2 abdominal adhesions - Tmax 100.1F, HR 104-110, BP 123/88 - CT A/P: High-grade SBO, difficult to determine transition point - NGT switched to gravity as there was decreased output overnight. - strict NPO - pain mgmt: morphine - Surgery consult(Pradip) appreciated - Cardiology consult appreciated for clearance for possible NHI--> no contraindications to surgery if needed. - Passed flatus today 10/31/19 - AXR 12/31/19 shows improvement? no signs of ileus of obstruction #Normocytic Anemia - Pt. presented with HgB of 13.5 which decreased to 11.6 yesterday to 9.7 today. Yesterday I suspected that HgB was elevated because of decreased PO intake because of ileus and slight dehydration as chemistry indicated. Today there is a continued 2 unit decline but without clinical signs of overt bleeding. - f/u FOBT, Iron studies, reticulocyte count and haptoblobin - Normal transfusion threshold #COPD - albuterol PRN - c/w home medications - nicotine patch PRN #FEN - LR @125 - monitor and replete as needed - strict NPO--> if improving in AM will switch to clears #DVT PPX - SCDs Visit type - Emergency Visit Emergency Visit: Yes ED Registration Date: 12/30/19 Care time: The patient presented to the Emergency Department on the above date and was hospitalized for further evaluation of their emergent condition. - New Patient This patient is new to me today: No - Critical Care Critical Care patient: No - Discharge Referral Referred to [facility] Med P.C.: No - Medication Review Med list reviewed for High Risk Meds patients 65 and older: Yes ATTENDING PHYSICIAN STATEMENT I saw and evaluated the patient. I reviewed the resident's note and discussed the case with the resident. I agree with the resident's findings and plan as documented. SUBJECTIVE: OBJECTIVE: ASSESSMENT AND PLAN:
[2020-01-01] MEDS: MORPHINE SULFATE 2 MG/ML VIAL IVPUSH PRN ×2 (00:47→13:22)
[2020-01-01] MEDS: ACETAMINOPHEN 1000 MG/100 ML VIAL (NON FORMULARY) IVPB SCH ×4 (01:04→17:24)
[2020-01-01] MEDS: LACTATED RINGERS SOLUTION 1,000 ML/1,000 ML INFUS.BAG IV SCH ×3 (01:04→13:09)
[2020-01-01 01:34] LABS: HEMATOCRIT 33.7 % (35.4-49); HEMOGLOBIN 10.9 GM/dL (11.7-16.9); MCH 27.3 pg (25.7-33.7); MCHC 32.4 g/dl (32.0-35.9); MEAN CELL VOLUME 84.3 fl (80-96); MEAN PLT VOLUME 9.7 fl (7.5-11.1); PLATELET COUNT 168 K/MM3 (134-434); RDW 15.4 % (11.9-15.9); WHITE BLOOD COUNT 7.4 K/mm3 (4.0-10.0)
[2020-01-01] MEDS ORDERED: HURRICAINE SP EXT TUBE 1 EA EACH TP ONE (04:13)
[2020-01-01] MEDS ORDERED: BENZOCAINE 20% 57 GM BOTTLE TP ONE (04:30)
--- NOTE | 2020-01-01 09:10 | PN ---
Progress Note (short form) - Note Progress Note: Surg: Pt seen today with Dr. Moseley. The patient has complaints of throat pain. No nausea or emesis. Passing flatus. No BM. No complaints of abd pain. Vital Signs Period Temp Pulse Resp BP Sys/Monsalve Pulse Ox Last 24 Hr 97.8 F-98.9 F 50-55 16-20 117-136/65-76 94-100 NGT to bedside nag-no drainage noted GEN: A&0x3, NAD ABD: soft, non-tender, non-distended CBC, BMP 01/01/20 00:47 12/31/19 06:25 A/p: 69 yo male with resolving SBO NGT removed today and started clears OOB and ambulate Monitor for bowel function <Shayna Mg - Last Filed: 01/01/20 09:10> - Note Progress Note: Attending Surgeon: I personally saw and examined the patient. My examination reveals a patient with a small bowel obstruction. I discussed the case with the surgical PA and agree with their findings and plan of care with any exceptions as noted. ~ Rodrigo Moseley MD, FACS <Rodrigo Moseley - Last Filed: 01/02/20 09:51>
[2020-01-01] MEDS: PANTOPRAZOLE SODIUM 40 MG VIAL IVPUSH SCH (10:11)
[2020-01-01] MEDS: FLUTICASONE/SALMETEROL 100 MCG/50 MCG DISKUS IH SCH ×2 (10:12→22:06)
[2020-01-01] MEDS: NICOTINE 14 MG/24 HOURS TOPICAL PATCH TD SCH (10:16)
[2020-01-01] MEDS: HEPARIN NA (PORCINE) 5,000 UNITS/ML 1ML VIAL SQ SCH ×2 (13:08→22:06)
[2020-01-01] MEDS ORDERED: BENZOCAINE 20% 57 GM BOTTLE TP PRN (14:11)
[2020-01-01] MEDS ORDERED: PHENOL 177 ML SPRAY BOTTLE MM PRN (14:16)
--- NOTE | 2020-01-01 14:40 | PN ---
Physical Exam: SUBJECTIVE: Patient seen and examined. Overnight events reviewed. Pt. endorses a bad night, nauseous until NGT was placed back on suction with minimal output but lots of air removal. Noted that Pt.s diet advanced throughout the day per surgery. Pt. states he is passing gas. Per RN Left noted to be slightly swollen with slight numbness. OBJECTIVE: Vital Signs Period Temp Pulse Resp BP Sys/Monsalve Pulse Ox Last 24 Hr 98 F-98.9 F 50-62 16-20 117-136/63-76 90-96 GENERAL: The patient is awake, alert, and fully oriented, in no acute distress. HEAD: Normal with no signs of trauma. EYES: Sclera anicteric, conjunctiva clear. ENT: Ears normal, nares patent, oropharynx clear without exudates, Dry mucous membranes. NECK: Trachea midline, full range of motion, supple. LUNGS: Breath sounds equal, clear to auscultation bilaterally, no wheezes, no crackles, no accessory muscle use. HEART: Regular rate and rhythm, S1, S2 without murmur, rub or gallop. ABDOMEN: Firm but NOT rigid, LLQ and LUQ tenderness to palpation (admittedly I pressed harder today to elicit a reaction), nondistended, bowel sounds absent again, no guarding, no rebound, no hepatosplenomegaly, no masses. EXTREMITIES: 2+ dorsal pedal and radial pulses, no calf tenderness, warm, well- perfused, no edema. Slight L. hand swelling and numbness. NEUROLOGICAL: Normal speech, gait not observed. PSYCH: Normal mood, normal affect. SKIN: Warm, dry, normal turgor Laboratory Results - last 24 hr 01/01/20 01/01/20 00:47 06:33 WBC 7.4 RBC 4.00 Hgb 10.9 L Hct 33.7 L MCV 84.3 MCH 27.3 MCHC 32.4 RDW 15.4 Plt Count 168 MPV 9.7 D Retic Count 1.23 Active Medications Generic Name Dose Route Start Last Admin Trade Name Freq PRN Reason Stop Dose Admin Acetaminophen 750 mg 12/30/19 12:00 01/01/20 13:08 Ofirmev Injection - IVPB Not Given Q6H EMILY Albuterol Sulfate 2 puff 12/30/19 03:51 Ventolin Hfa Inhaler - IH Q4H PRN SHORT OF BREATH/WHEEZING Heparin Sodium (Porcine) 5,000 unit 12/30/19 11:00 01/01/20 13:08 Heparin - SQ 5,000 unit TID EMILY Administration Lactated Ringer's 1,000 ml in 1,000 mls @ 125 mls/hr 12/30/19 00:15 01/01/20 13:09 Lactated Ringers Solution IV 125 mls/hr ASDIR EMILY Administration Morphine Sulfate 2 mg 12/30/19 03:48 01/01/20 13:22 Morphine Sulfate IVPUSH 2 mg Q6H PRN Administration PAIN LEVEL 6-10 Nicotine 14 mg 12/30/19 10:00 01/01/20 10:16 Nicoderm Patch - TD 14 mg DAILY EMILY Administration Pantoprazole Sodium 40 mg 12/30/19 11:00 01/01/20 10:11 Protonix Iv IVPUSH 40 mg DAILY EMILY Administration Phenol/Menthol 1 spray 01/01/20 14:16 Chloraseptic - MM PRN PRN SORE THROAT Fluticasone/Salmeterol 1 puff 12/30/19 10:00 01/01/20 10:12 Advair 100mcg/50mcg - IH 1 puff BID EMILY Administration ASSESSMENT/PLAN: Pt. is a 69 y.o. M w/ PMHx. 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 Expresses concern that he is having pain similar to his SBO symptoms from a couple of years prior. Last flatus or BM was 2d prior to admission. CT imaging showing SBO. Admitted for SBO. #SBO --likely 2/2 abdominal adhesions - Tmax 100.1F, HR 104-110, BP 123/88 - CT A/P: High-grade SBO, difficult to determine transition point - NGT removed - pain mgmt: morphine - Surgery consult(Pradip) appreciated - Cardiology consult appreciated for clearance for possible NHI--> no contraindications to surgery if needed. - Passed flatus today 10/31/19 - AXR 12/31/19 shows improvement? no signs of ileus of obstruction #Normocytic Anemia - Pt. presented with HgB of 13.5 --> 11.6 -->9.7--> 10.9 today. I suspected that HgB was elevated because of decreased PO intake because of ileus and slight dehydration as chemistry indicated. Today there is a continued 2 unit decline but without clinical signs of overt bleeding. - f/u FOBT, Iron studies, haptoblobin - Normal transfusion threshold - Reticulocyte count: 1.23 indicating an in appropriate response to anemia. As Pt.s hemoglobin improved today will continue to trend. Pt. likely has anemia secondary to chronic disease (COPD and Hep C.) Cannot rule out MDS. #COPD - albuterol PRN - c/w home medications - nicotine patch PRN #FEN - LR @125 - monitor and replete as needed - Diet advanced to clears per surgery #DVT PPX - SCDs Visit type - Emergency Visit Emergency Visit: Yes ED Registration Date: 12/30/19 Care time: The patient presented to the Emergency Department on the above date and was hospitalized for further evaluation of their emergent condition. - New Patient This patient is new to me today: No - Critical Care Critical Care patient: No - Discharge Referral Referred to [facility] Med P.C.: No - Medication Review Med list reviewed for High Risk Meds patients 65 and older: Yes ATTENDING PHYSICIAN STATEMENT I saw and evaluated the patient. I reviewed the resident's note and discussed the case with the resident. I agree with the resident's findings and plan as documented. SUBJECTIVE: OBJECTIVE: ASSESSMENT AND PLAN:
[2020-01-02] MEDS: ACETAMINOPHEN 1000 MG/100 ML VIAL (NON FORMULARY) IVPB SCH ×3 (01:08→13:24)
[2020-01-02] MEDS: LACTATED RINGERS SOLUTION 1,000 ML/1,000 ML INFUS.BAG IV SCH ×2 (01:08→06:34)
[2020-01-02] MEDS: HEPARIN NA (PORCINE) 5,000 UNITS/ML 1ML VIAL SQ SCH ×3 (06:30→22:10)
[2020-01-02] MEDS: MORPHINE SULFATE 2 MG/ML VIAL IVPUSH PRN (06:34)
[2020-01-02 07:39] LABS: HEMATOCRIT 33.6 % (35.4-49); HEMOGLOBIN 11.1 GM/dL (11.7-16.9); MCH 27.1 pg (25.7-33.7); MCHC 33.1 g/dl (32.0-35.9); MEAN CELL VOLUME 81.7 fl (80-96); MEAN PLT VOLUME 8.4 fl (7.5-11.1); PLATELET COUNT 170 K/MM3 (134-434); RBC 4.11 M/mm3 (4.00-5.60); RDW 15.4 % (11.9-15.9); WHITE BLOOD COUNT 6.4 K/mm3 (4.0-10.0)
[2020-01-02 07:59] LABS: BLOOD UREA NITROGEN 6.2 mg/dL (7-18); CALCIUM 8.2 mg/dL (8.5-10.1); CREATININE 0.7 mg/dL (0.55-1.3); MAGNESIUM 1.7 mg/dL (1.8-2.4); POTASSIUM 3.4 mmol/L (3.5-5.1)
--- NOTE | 2020-01-02 08:18 | PN ---
Progress Note (short form) - Note Progress Note: Surg: Pt seen and examined at bedside. The patient denies any abd pain. No nausea or emesis. Passing flatus. No BM. Tolerating clears. Last Vital Signs Temp Pulse Resp BP Pulse Ox 98.4 F 56 L 16 119/68 97 01/02/20 06:46 01/02/20 06:46 01/02/20 06:46 01/02/20 06:46 01/02/20 06:46 CBC, BMP 01/02/20 06:50 01/02/20 06:50 GEN: A&0x3, NAD ABD: soft, non-tender, non-distended <Juaquin Ford - Last Filed: 01/02/20 08:16> - Note Progress Note: Attending Surgeon: I personally saw and examined the patient. My examination reveals a patient with a small bowel obstruction. I discussed the case with the surgical PA and agree with their findings and plan of care with any exceptions as noted. ~ Rodrigo Moseley MD, FACS <Rodrigo Moseley - Last Filed: 01/02/20 09:50> Problem List - Problems (1) SBO (small bowel obstruction) Assessment/Plan: Plan -pt appears to have resolved his SBO, will adv to regular diet -pt cleared for discharge from Surgery side Pt discussed with Dr. Moseley who agrees with plan Code(s): K56.609 - UNSP INTESTNL OBST, UNSP TO PARTIAL VERSUS COMPLETE OBST <Juaquin Ford - Last Filed: 01/02/20 08:16>
[2020-01-02] MEDS ORDERED: PT OWN MED DRAWER 7, Y5N ONE (08:54)
[2020-01-02] MEDS: NICOTINE 14 MG/24 HOURS TOPICAL PATCH TD SCH (09:25)
[2020-01-02] MEDS: FLUTICASONE/SALMETEROL 100 MCG/50 MCG DISKUS IH SCH ×2 (09:25→22:11)
[2020-01-02] MEDS: PANTOPRAZOLE SODIUM 40 MG VIAL IVPUSH SCH (09:25)
[2020-01-02] MEDS ORDERED: POTASSIUM CHLORIDE TABS 20 MEQ TABLET.ER (FP) PO ONE (10:08)
[2020-01-02] MEDS ORDERED: MAGNESIUM SULF 50% (8.12 MEQ/2 ML-1 GM VIAL) IVPB ONE (10:08)
[2020-01-02] MEDS ORDERED: MAGNESIUM 1GM/D5W - 1 GM/100 ML IVPB IVPB ONE (11:30)
[2020-01-02] MEDS ORDERED: MAGNESIUM OXIDE 400 MG TABLET (FP) PO ONE (13:59)
[2020-01-02] MEDS ORDERED: ACETAMINOPHEN 325 MG TABLET (FP) PO PRN (16:41)
[2020-01-02] MEDS: DOCUSATE SODIUM 100 MG CAPSULE (FP) PO SCH (17:20)
[2020-01-02] MEDS: PANTOPRAZOLE 40 MG TABLET PO SCH (17:20)
--- NOTE | 2020-01-02 18:05 | PN ---
Teaching Attending Note Name of Resident: Ajit Fernando ATTENDING PHYSICIAN STATEMENT I saw and evaluated the patient. I reviewed the resident's note and discussed the case with the resident. I agree with the resident's findings and plan as documented. SUBJECTIVE: Patient seen and examined at bedside, admitted for SBO which is recurrent. NPO/w. NGT to suction. VSS. OBJECTIVE: GENERAL: The patient is awake, alert, and fully oriented, in no acute distress. HEAD: Normal with no signs of trauma. EYES: Sclera anicteric, conjunctiva clear. ENT: Ears normal, nares patent, oropharynx clear without exudates, Dry mucous membranes. NECK: Trachea midline, full range of motion, supple. LUNGS: Breath sounds equal, clear to auscultation bilaterally, no wheezes, no crackles, no accessory muscle use. HEART: Regular rate and rhythm, S1, S2 without murmur, rub or gallop. ABDOMEN: NT, thin body habitus, decreased BS+, no guarding, tenderness to deep palpation EXTREMITIES: 2+ dorsal pedal pulses, no calf tenderness, warm, well-perfused, no edema. NEUROLOGICAL: Normal speech, gait not observed. PSYCH: Normal mood, normal affect. SKIN: Warm, dry, normal turgor Vital Signs - 24 hr 01/01/20 01/01/20 01/02/20 21:00 22:10 06:46 Temperature 98.4 F 98.4 F Pulse Rate 51 L 56 L Respiratory 16 16 16 Rate Blood Pressure 105/64 119/68 O2 Sat by Pulse 95 95 97 Oximetry (%) 01/02/20 01/02/20 01/02/20 09:00 09:23 17:47 Temperature 98.6 F 98.3 F Pulse Rate 66 60 Respiratory 18 18 18 Rate Blood Pressure 110/74 116/70 O2 Sat by Pulse 96 96 98 Oximetry (%) Laboratory Results - last 24 hr 12/29/19 12/29/19 12/29/19 20:34 21:20 21:20 WBC 9.3 RBC 5.05 Hgb 13.5 Hct 42.1 D MCV 83.3 MCH 26.8 MCHC 32.2 RDW 15.8 Plt Count 204 D MPV 8.2 Absolute Neuts (auto) 7.4 Neutrophils % 79.8 Lymphocytes % 13.4 D Monocytes % 6.2 Eosinophils % 0.2 Basophils % 0.4 Nucleated RBC % 0 PT with INR 12.80 INR 1.08 PTT (Actin FS) 30.2 Sodium 139 Potassium 5.0 Chloride 105 Carbon Dioxide 20 L Anion Gap 15 BUN 12.9 Creatinine 1.1 Est GFR (CKD-EPI)AfAm 77.86 Est GFR (CKD-EPI)NonAf 67.18 Random Glucose 111 H Lactic Acid Calcium 9.7 Phosphorus 3.4 Magnesium 2.1 Total Bilirubin 0.8 AST 23 ALT 14 Alkaline Phosphatase 58 Total Protein 8.1 Albumin 4.3 Lipase 49 L TSH Blood Type Antibody Screen 12/29/19 12/29/19 12/30/19 21:20 21:20 05:30 WBC 5.6 RBC 4.39 Hgb 11.6 L Hct 36.6 MCV 83.3 MCH 26.5 MCHC 31.8 L RDW 15.8 Plt Count 193 MPV 8.9 Absolute Neuts (auto) 3.7 Neutrophils % 65.7 Lymphocytes % 22.8 D Monocytes % 10.7 H Eosinophils % 0.5 D Basophils % 0.3 Nucleated RBC % 0 PT with INR INR PTT (Actin FS) Sodium Potassium Chloride Carbon Dioxide Anion Gap BUN Creatinine Est GFR (CKD-EPI)AfAm Est GFR (CKD-EPI)NonAf Random Glucose Lactic Acid 1.5 Calcium Phosphorus Magnesium Total Bilirubin AST ALT Alkaline Phosphatase Total Protein Albumin Lipase TSH Blood Type A POSITIVE Antibody Screen Negative 12/30/19 05:30 WBC RBC Hgb Hct MCV MCH MCHC RDW Plt Count MPV Absolute Neuts (auto) Neutrophils % Lymphocytes % Monocytes % Eosinophils % Basophils % Nucleated RBC % PT with INR INR PTT (Actin FS) Sodium Potassium Chloride Carbon Dioxide Anion Gap BUN Creatinine Est GFR (CKD-EPI)AfAm Est GFR (CKD-EPI)NonAf Random Glucose Lactic Acid Calcium Phosphorus Magnesium Total Bilirubin AST ALT Alkaline Phosphatase Total Protein Albumin Lipase TSH 1.37 D Blood Type Antibody Screen Active Medications Generic Name Dose Route Start Last Admin Trade Name Freq PRN Reason Stop Dose Admin Acetaminophen 750 mg 12/30/19 12:00 12/30/19 12:18 Ofirmev Injection - IVPB 750 mg Q6H EMILY Administration Albuterol Sulfate 2 puff 12/30/19 03:51 Ventolin Hfa Inhaler - IH Q4H PRN SHORT OF BREATH/WHEEZING Heparin Sodium (Porcine) 5,000 unit 12/30/19 11:00 12/30/19 11:17 Heparin - SQ 5,000 unit TID EMILY Administration Lactated Ringer's 1,000 ml in 1,000 mls @ 125 mls/hr 12/30/19 00:15 12/30/19 00:33 Lactated Ringers Solution IV 125 mls/hr ASDIR EMILY Administration Dextrose/Sodium Chloride 1,000 mls @ 83 mls/hr 12/30/19 02:45 12/30/19 03:05 D5-Ns - IV 83 mls/hr ASDIR EMILY Administration Morphine Sulfate 2 mg 12/30/19 03:48 12/30/19 06:21 Morphine Sulfate IVPUSH 2 mg Q6H PRN Administration PAIN LEVEL 6-10 Nicotine 14 mg 12/30/19 10:00 12/30/19 12:46 Nicoderm Patch - TD 14 mg DAILY EMILY Administration Pantoprazole Sodium 40 mg 12/30/19 11:00 12/30/19 11:18 Protonix Iv IVPUSH 40 mg DAILY EMILY Administration Fluticasone/Salmeterol 1 puff 12/30/19 10:00 12/30/19 12:46 Advair 100mcg/50mcg - IH 1 puff BID EMILY Administration ASSESSMENT AND PLAN: 69 M High grade SBO HTN HLD COPD s/p appendectomy Hepatitis C (untreated) Plan: Cont. NPO/NGT to suction Empiric abx PPI D5W, duonebs for SOB, supplemental O2 PRN, pain control DVT ppx: Heparin
--- NOTE | 2020-01-02 18:09 | PN ---
Teaching Attending Note Name of Resident: Ajit Fernando ATTENDING PHYSICIAN STATEMENT I saw and evaluated the patient. I reviewed the resident's note and discussed the case with the resident. I agree with the resident's findings and plan as documented. SUBJECTIVE: Patient seen and examined at bedside, pain improved, passing gas, still no BM, tolerating water/ice chips. VSS. OBJECTIVE: GENERAL: The patient is awake, alert, and fully oriented, in no acute distress. HEAD: Normal with no signs of trauma. EYES: Sclera anicteric, conjunctiva clear. ENT: Ears normal, nares patent, oropharynx clear without exudates, Dry mucous membranes. NECK: Trachea midline, full range of motion, supple. LUNGS: Breath sounds equal, clear to auscultation bilaterally, no wheezes, no crackles, no accessory muscle use. HEART: Regular rate and rhythm, S1, S2 without murmur, rub or gallop. ABDOMEN: NT, thin body habitus, decreased BS+, no guarding, tenderness to deep palpation EXTREMITIES: 2+ dorsal pedal pulses, no calf tenderness, warm, well-perfused, no edema. NEUROLOGICAL: Normal speech, gait not observed. PSYCH: Normal mood, normal affect. SKIN: Warm, dry, normal turgor Vital Signs - 24 hr 01/01/20 01/01/20 01/02/20 21:00 22:10 06:46 Temperature 98.4 F 98.4 F Pulse Rate 51 L 56 L Respiratory 16 16 16 Rate Blood Pressure 105/64 119/68 O2 Sat by Pulse 95 95 97 Oximetry (%) 01/02/20 01/02/20 01/02/20 09:00 09:23 17:47 Temperature 98.6 F 98.3 F Pulse Rate 66 60 Respiratory 18 18 18 Rate Blood Pressure 110/74 116/70 O2 Sat by Pulse 96 96 98 Oximetry (%) Laboratory Results - last 24 hr 12/29/19 12/29/19 12/29/19 20:34 21:20 21:20 WBC 9.3 RBC 5.05 Hgb 13.5 Hct 42.1 D MCV 83.3 MCH 26.8 MCHC 32.2 RDW 15.8 Plt Count 204 D MPV 8.2 Absolute Neuts (auto) 7.4 Neutrophils % 79.8 Lymphocytes % 13.4 D Monocytes % 6.2 Eosinophils % 0.2 Basophils % 0.4 Nucleated RBC % 0 PT with INR 12.80 INR 1.08 PTT (Actin FS) 30.2 Sodium 139 Potassium 5.0 Chloride 105 Carbon Dioxide 20 L Anion Gap 15 BUN 12.9 Creatinine 1.1 Est GFR (CKD-EPI)AfAm 77.86 Est GFR (CKD-EPI)NonAf 67.18 Random Glucose 111 H Lactic Acid Calcium 9.7 Phosphorus 3.4 Magnesium 2.1 Total Bilirubin 0.8 AST 23 ALT 14 Alkaline Phosphatase 58 Total Protein 8.1 Albumin 4.3 Lipase 49 L TSH Blood Type Antibody Screen 12/29/19 12/29/19 12/30/19 21:20 21:20 05:30 WBC 5.6 RBC 4.39 Hgb 11.6 L Hct 36.6 MCV 83.3 MCH 26.5 MCHC 31.8 L RDW 15.8 Plt Count 193 MPV 8.9 Absolute Neuts (auto) 3.7 Neutrophils % 65.7 Lymphocytes % 22.8 D Monocytes % 10.7 H Eosinophils % 0.5 D Basophils % 0.3 Nucleated RBC % 0 PT with INR INR PTT (Actin FS) Sodium Potassium Chloride Carbon Dioxide Anion Gap BUN Creatinine Est GFR (CKD-EPI)AfAm Est GFR (CKD-EPI)NonAf Random Glucose Lactic Acid 1.5 Calcium Phosphorus Magnesium Total Bilirubin AST ALT Alkaline Phosphatase Total Protein Albumin Lipase TSH Blood Type A POSITIVE Antibody Screen Negative 12/30/19 05:30 WBC RBC Hgb Hct MCV MCH MCHC RDW Plt Count MPV Absolute Neuts (auto) Neutrophils % Lymphocytes % Monocytes % Eosinophils % Basophils % Nucleated RBC % PT with INR INR PTT (Actin FS) Sodium Potassium Chloride Carbon Dioxide Anion Gap BUN Creatinine Est GFR (CKD-EPI)AfAm Est GFR (CKD-EPI)NonAf Random Glucose Lactic Acid Calcium Phosphorus Magnesium Total Bilirubin AST ALT Alkaline Phosphatase Total Protein Albumin Lipase TSH 1.37 D Blood Type Antibody Screen Active Medications Generic Name Dose Route Start Last Admin Trade Name Freq PRN Reason Stop Dose Admin Acetaminophen 750 mg 12/30/19 12:00 12/30/19 12:18 Ofirmev Injection - IVPB 750 mg Q6H EMILY Administration Albuterol Sulfate 2 puff 12/30/19 03:51 Ventolin Hfa Inhaler - IH Q4H PRN SHORT OF BREATH/WHEEZING Heparin Sodium (Porcine) 5,000 unit 12/30/19 11:00 12/30/19 11:17 Heparin - SQ 5,000 unit TID EMILY Administration Lactated Ringer's 1,000 ml in 1,000 mls @ 125 mls/hr 12/30/19 00:15 12/30/19 00:33 Lactated Ringers Solution IV 125 mls/hr ASDIR EMILY Administration Dextrose/Sodium Chloride 1,000 mls @ 83 mls/hr 12/30/19 02:45 12/30/19 03:05 D5-Ns - IV 83 mls/hr ASDIR EMILY Administration Morphine Sulfate 2 mg 12/30/19 03:48 12/30/19 06:21 Morphine Sulfate IVPUSH 2 mg Q6H PRN Administration PAIN LEVEL 6-10 Nicotine 14 mg 12/30/19 10:00 12/30/19 12:46 Nicoderm Patch - TD 14 mg DAILY EMILY Administration Pantoprazole Sodium 40 mg 12/30/19 11:00 12/30/19 11:18 Protonix Iv IVPUSH 40 mg DAILY EMILY Administration Fluticasone/Salmeterol 1 puff 12/30/19 10:00 12/30/19 12:46 Advair 100mcg/50mcg - IH 1 puff BID EMILY Administration ASSESSMENT AND PLAN: 69 M High grade SBO HTN HLD COPD s/p appendectomy Hepatitis C (untreated) Plan: Cont. NPO/NGT to suction PPI D5W, duonebs for SOB, supplemental O2 PRN, pain control Pre-post ambulation O2 sat to evaluate for home O2 Surgery following DVT ppx: Heparin
--- NOTE | 2020-01-02 18:10 | PN ---
Physical Exam: SUBJECTIVE: Patient seen and examined at bedside, NAD, passing gas, tolerating diet, will see for BM then DC home likely in AM. VSS. OBJECTIVE: Vital Signs Period Temp Pulse Resp BP Sys/Monsalve Pulse Ox Last 24 Hr 98.3 F-98.6 F 51-66 16-18 105-119/64-74 95-98 GENERAL: The patient is awake, alert, and fully oriented, in no acute distress. HEAD: Normal with no signs of trauma. EYES: PERRL, extraocular movements intact, sclera anicteric, conjunctiva clear. No ptosis. ENT: Ears normal, nares patent, oropharynx clear without exudates, moist mucous membranes. NECK: Trachea midline, full range of motion, supple. LUNGS: Breath sounds equal, clear to auscultation bilaterally, no wheezes, no crackles, no accessory muscle use. HEART: Regular rate and rhythm, S1, S2 without murmur, rub or gallop. ABDOMEN: Soft, nontender, nondistended, normoactive bowel sounds, no guarding, no rebound, no hepatosplenomegaly, no masses. EXTREMITIES: 2+ pulses, warm, well-perfused, no edema. NEUROLOGICAL: Cranial nerves II through XII grossly intact. Normal speech, gait not observed. PSYCH: Normal mood, normal affect. SKIN: Warm, dry, normal turgor, no rashes or lesions noted Laboratory Results - last 24 hr 01/01/20 01/02/20 01/02/20 06:33 06:50 06:50 WBC 6.4 RBC 4.11 Hgb 11.1 L Hct 33.6 L MCV 81.7 MCH 27.1 MCHC 33.1 RDW 15.4 Plt Count 170 MPV 8.4 D Haptoglobin 159 Sodium 144 Potassium 3.4 L Chloride 110 H Carbon Dioxide 29 Anion Gap 5 L BUN 6.2 L Creatinine 0.7 Est GFR (CKD-EPI)AfAm 110.04 Est GFR (CKD-EPI)NonAf 94.95 Random Glucose 82 Calcium 8.2 L Magnesium 1.7 L Active Medications Generic Name Dose Route Start Last Admin Trade Name Freq PRN Reason Stop Dose Admin Acetaminophen 650 mg 01/02/20 16:41 Tylenol - PO Q6H PRN PAIN LEVEL 6-10 Albuterol Sulfate 2 puff 12/30/19 03:51 Ventolin Hfa Inhaler - IH Q4H PRN SHORT OF BREATH/WHEEZING Docusate Sodium 100 mg 01/02/20 16:45 01/02/20 17:20 Colace - PO 100 mg DAILY EMILY Administration Heparin Sodium (Porcine) 5,000 unit 12/30/19 11:00 01/02/20 16:03 Heparin - SQ 5,000 unit TID EMILY Administration Nicotine 14 mg 12/30/19 10:00 01/02/20 09:25 Nicoderm Patch - TD 14 mg DAILY EIMLY Administration Pantoprazole Sodium 40 mg 01/02/20 16:45 01/02/20 17:20 Protonix - PO 40 mg DAILY EMILY Administration Phenol/Menthol 1 spray 01/01/20 14:16 Chloraseptic - MM PRN PRN SORE THROAT Fluticasone/Salmeterol 1 puff 12/30/19 10:00 01/02/20 09:25 Advair 100mcg/50mcg - IH 1 puff BID EMILY Administration ASSESSMENT/PLAN: 69 M High grade SBO resolving HTN HLD COPD s/p appendectomy Hepatitis C (untreated) Hypomagnesemia Plan: initiate regular diet, small meals, PO hydration Stool softener PPI DC IV fluids Pre-post ambulation O2 sat to evaluate for home O2 Surgery following DC in AM DVT ppx: Heparin Visit type - Emergency Visit Emergency Visit: Yes ED Registration Date: 12/30/19 Care time: The patient presented to the Emergency Department on the above date and was hospitalized for further evaluation of their emergent condition. - New Patient This patient is new to me today: No - Critical Care Critical Care patient: No - Discharge Referral Referred to [facility] Med P.C.: No - Medication Review Med list reviewed for High Risk Meds patients 65 and older: Yes
[2020-01-03] MEDS: HEPARIN NA (PORCINE) 5,000 UNITS/ML 1ML VIAL SQ SCH ×3 (06:19→21:44)
--- NOTE | 2020-01-03 06:58 | PN ---
Progress Note (short form) - Note Progress Note: Chief Complaint: Events noted, notes reviewed, resting in bed, reporting persistent dyspnea, denies any chest discomfort History of Present Illness: Seen and examined. Events noted, notes reviewed, resting in bed, reporting persistent dyspnea, denies any chest discomfort Medications: Current Medications Generic Name Dose Route Start Last Admin Trade Name Freq PRN Reason Stop Dose Admin Acetaminophen 650 mg 01/02/20 16:41 Tylenol - PO Q6H PRN PAIN LEVEL 6-10 Albuterol Sulfate 2 puff 12/30/19 03:51 Ventolin Hfa Inhaler - IH Q4H PRN SHORT OF BREATH/WHEEZING Docusate Sodium 100 mg 01/02/20 16:45 01/02/20 17:20 Colace - PO 100 mg DAILY EMILY Administration Heparin Sodium (Porcine) 5,000 unit 12/30/19 11:00 01/03/20 06:19 Heparin - SQ 5,000 unit TID EMILY Administration Nicotine 14 mg 12/30/19 10:00 01/02/20 09:25 Nicoderm Patch - TD 14 mg DAILY EMILY Administration Pantoprazole Sodium 40 mg 01/02/20 16:45 01/02/20 17:20 Protonix - PO 40 mg DAILY EMILY Administration Phenol/Menthol 1 spray 01/01/20 14:16 Chloraseptic - MM PRN PRN SORE THROAT Fluticasone/Salmeterol 1 puff 12/30/19 10:00 01/02/20 22:11 Advair 100mcg/50mcg - IH Not Given BID [facility] Review of Systems Constitutional: denies Chills or Fever Respiratory: reports: Dyspnea Cardiovascular: As noted above Gastrointestinal: denies Nausea, Vomiting, Diarrhea or Constipation or Abdominal Discomfort Genitourinary: No Symptoms Reported Musculoskeletal: No Symptoms Reported Vital Signs: Last Vital Signs Temp Pulse Resp BP Pulse Ox 98.2 F 59 L 18 121/70 96 01/03/20 06:00 01/03/20 06:00 01/03/20 06:00 01/03/20 06:00 01/03/20 06:00 Intake & Output 12/31/19 01/01/20 01/02/20 01/03/20 23:59 23:59 23:59 23:59 Intake Total 900 3700 2085 Output Total 850 2000 1100 450 Balance 50 1700 985 -450 Weight 103 lb Neck: Supple Negative JVD Respiratory: Diminished Breath Sounds Bilaterally- Bases Cardiovascular: S1 S2 Regular Rate Rhythm Gastrointestinal: Soft Benign Normal Bowel Sounds Ext: Negative Edema Labs: CBC, BMP 01/03/20 06:01 01/03/20 06:01 CBC, BMP 01/02/20 06:50 01/02/20 06:50 Hepatic Panel Total Bilirubin 0.7 mg/dL (0.2-1) 12/31/19 06:25 AST 11 U/L (15-37) L 12/31/19 06:25 ALT 8 U/L (13-61) L 12/31/19 06:25 Alkaline Phosphatase 38 U/L (45-117) L 12/31/19 06:25 Albumin 2.7 g/dl (3.4-5.0) L 12/31/19 06:25 INR, PTT INR 1.27 (0.83-1.09) H 12/31/19 06:25 Assessment/Plan ASSESSMENT: 1. High-grade small bowel obstruction, clinically resolving 2. 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 Diastolic left ventricular dysfunction with clinical class 0 [place] [employer] classification of ventricle failure 4. Hypertensive cardiovascular disease 5. Hypercholesterolemia 6. Advanced chronic obstructive pulmonary disease/exacerbation 7. History of hepatitis C/untreated 8. Anemia 9. Hypokalemia PLAN: 1. Correction of hypokalemia 2. Bronchodilators as per the primary team 3. Once the above-noted small bowel obstruction clinically resolves recommend the addition of daily Ecotrin therapy 4. Recommend the addition of beta-mulugeta therapy unless it is absolutely contraindicated 5. Recommend the addition of statin therapy unless it is absolutely contraindicated Neptali Arredondo MD
[2020-01-03 07:24] LABS: BASO % 0.7 % (0-2.0); EOS % 3.5 % (0-4.5); HEMATOCRIT 33.7 % (35.4-49); LYMPH % 30.5 % (8-40); MCH 26.9 pg (25.7-33.7); MCHC 32.6 g/dl (32.0-35.9); MEAN CELL VOLUME 82.4 fl (80-96); MEAN PLT VOLUME 8.7 fl (7.5-11.1); MONO % 9.7 % (3.8-10.2); NEUT % 55.6 % (42.8-82.8); PLATELET COUNT 187 K/MM3 (134-434); RBC 4.09 M/mm3 (4.00-5.60); RDW 15.3 % (11.9-15.9); WHITE BLOOD COUNT 6.4 K/mm3 (4.0-10.0)
[2020-01-03 07:45] LABS: ALBUMIN 2.6 g/dl (3.4-5.0); BILIRUBIN,TOTAL 0.5 mg/dL (0.2-1); BLOOD UREA NITROGEN 8.1 mg/dL (7-18); CALCIUM 8.4 mg/dL (8.5-10.1); CREATININE 0.7 mg/dL (0.55-1.3); POTASSIUM 3.4 mmol/L (3.5-5.1); TOT PROT 5.5 g/dl (6.4-8.2)
[2020-01-03] MEDS: NICOTINE 14 MG/24 HOURS TOPICAL PATCH TD SCH (09:00)
[2020-01-03] MEDS: PANTOPRAZOLE 40 MG TABLET PO SCH (09:00)
[2020-01-03] MEDS: DOCUSATE SODIUM 100 MG CAPSULE (FP) PO SCH (09:01)
[2020-01-03] MEDS: FLUTICASONE/SALMETEROL 100 MCG/50 MCG DISKUS IH SCH ×2 (09:02→21:52)
[2020-01-03] MEDS ORDERED: POTASSIUM CHLORIDE TABS 20 MEQ TABLET.ER (FP) PO ONE (11:00)
[2020-01-03] MEDS: oxyCODONE HCL 10 MG SUSTAINED ACTING TABLET PO SCH ×2 (13:49→21:44)
--- NOTE | 2020-01-03 14:04 | PN ---
Physical Exam: SUBJECTIVE: Patient seen and examined at bedside, endorses THURMAN, SOB which is chronic needs home O2, Pulmonary to evaluate prior to DC. VSS. OBJECTIVE: Vital Signs Period Temp Pulse Resp BP Sys/Monsalve Pulse Ox Last 24 Hr 98.3 F-98.6 F 51-66 16-18 105-119/64-74 95-98 GENERAL: The patient is awake, alert, and fully oriented, in no acute distress. HEAD: Normal with no signs of trauma. EYES: PERRL, extraocular movements intact, sclera anicteric, conjunctiva clear. No ptosis. ENT: Ears normal, nares patent, oropharynx clear without exudates, moist mucous membranes. NECK: Trachea midline, full range of motion, supple. LUNGS: Breath sounds equal, clear to auscultation bilaterally, no wheezes, no crackles, no accessory muscle use. HEART: Regular rate and rhythm, S1, S2 without murmur, rub or gallop. ABDOMEN: Soft, nontender, nondistended, normoactive bowel sounds, no guarding, no rebound, no hepatosplenomegaly, no masses. EXTREMITIES: 2+ pulses, warm, well-perfused, no edema. NEUROLOGICAL: Cranial nerves II through XII grossly intact. Normal speech, gait not observed. PSYCH: Normal mood, normal affect. SKIN: Warm, dry, normal turgor, no rashes or lesions noted Laboratory Results - last 24 hr 01/03/20 01/03/20 06:01 06:01 WBC 6.4 RBC 4.09 Hgb 11.0 L Hct 33.7 L MCV 82.4 MCH 26.9 MCHC 32.6 RDW 15.3 Plt Count 187 MPV 8.7 Absolute Neuts (auto) 3.6 Neutrophils % 55.6 Lymphocytes % 30.5 Monocytes % 9.7 Eosinophils % 3.5 Basophils % 0.7 Nucleated RBC % 0 Sodium 143 Potassium 3.4 L Chloride 109 H Carbon Dioxide 27 Anion Gap 7 L BUN 8.1 Creatinine 0.7 Est GFR (CKD-EPI)AfAm 110.04 Est GFR (CKD-EPI)NonAf 94.95 Random Glucose 82 Calcium 8.4 L Total Bilirubin 0.5 AST 10 L ALT 8 L Alkaline Phosphatase 42 L Total Protein 5.5 L Albumin 2.6 L Active Medications Generic Name Dose Route Start Last Admin Trade Name Freq PRN Reason Stop Dose Admin Acetaminophen 650 mg 01/02/20 16:41 Tylenol - PO Q6H PRN PAIN LEVEL 6-10 Albuterol Sulfate 2 puff 12/30/19 03:51 01/03/20 09:08 Ventolin Hfa Inhaler - IH 2 puff Q4H PRN Administration SHORT OF BREATH/WHEEZING Docusate Sodium 100 mg 01/02/20 16:45 01/03/20 09:01 Colace - PO Not Given DAILY EMILY Heparin Sodium (Porcine) 5,000 unit 12/30/19 11:00 01/03/20 13:49 Heparin - SQ 5,000 unit TID EMILY Administration Nicotine 14 mg 12/30/19 10:00 01/03/20 09:00 Nicoderm Patch - TD 14 mg DAILY EMILY Administration Oxycodone HCl 10 mg 01/03/20 13:30 01/03/20 13:49 Oxycontin - PO 10 mg BID EMILY Administration Pantoprazole Sodium 40 mg 01/02/20 16:45 01/03/20 09:00 Protonix - PO 40 mg DAILY EMILY Administration Phenol/Menthol 1 spray 01/01/20 14:16 Chloraseptic - MM PRN PRN SORE THROAT Fluticasone/Salmeterol 1 puff 12/30/19 10:00 01/03/20 09:02 Advair 100mcg/50mcg - IH 1 puff BID EMILY Administration ASSESSMENT/PLAN: 69 M High grade SBO resolving HTN HLD Uncontrolled COPD s/p appendectomy Hepatitis C (untreated) Hypomagnesemia Plan: cont. regular diet, small meals, PO hydration Duonebs PRN for SOB, needs pulmonary evaluation may benefit from home O2/pulmonary rehab reports MMRC dyspnea scale of 4 Stool softener PPI DC IV fluids Repeat Pre-post ambulation O2 sat to evaluate for home O2 Surgery following Cannot DC unless patient has home o2 setup DVT ppx: Heparin Visit type - Emergency Visit Emergency Visit: Yes ED Registration Date: 12/30/19 Care time: The patient presented to the Emergency Department on the above date and was hospitalized for further evaluation of their emergent condition. - New Patient This patient is new to me today: No - Critical Care Critical Care patient: No - Discharge Referral Referred to [facility] Med P.C.: No - Medication Review Med list reviewed for High Risk Meds patients 65 and older: Yes
[2020-01-04] MEDS: HEPARIN NA (PORCINE) 5,000 UNITS/ML 1ML VIAL SQ SCH ×3 (06:20→22:21)
--- NOTE | 2020-01-04 06:37 | PN ---
Progress Note (short form) - Note Progress Note: Chief Complaint: Events noted, notes reviewed, resting in bed, reporting persistent dyspnea, denies any chest discomfort History of Present Illness: Seen and examined. Events noted, notes reviewed, resting in bed, reporting persistent dyspnea, denies any chest discomfort Medications: Current Medications Generic Name Dose Route Start Last Admin Trade Name Freq PRN Reason Stop Dose Admin Acetaminophen 650 mg 01/02/20 16:41 Tylenol - PO Q6H PRN PAIN LEVEL 6-10 Albuterol Sulfate 2 puff 12/30/19 03:51 01/03/20 09:08 Ventolin Hfa Inhaler - IH 2 puff Q4H PRN Administration SHORT OF BREATH/WHEEZING Docusate Sodium 100 mg 01/02/20 16:45 01/03/20 09:01 Colace - PO Not Given DAILY [facility] Heparin Sodium (Porcine) 5,000 unit 12/30/19 11:00 01/04/20 06:20 Heparin - SQ 5,000 unit TID EMILY Administration Nicotine 14 mg 12/30/19 10:00 01/03/20 09:00 Nicoderm Patch - TD 14 mg DAILY EMILY Administration Oxycodone HCl 10 mg 01/03/20 13:30 01/03/20 21:44 Oxycontin - PO 10 mg BID EMILY Administration Pantoprazole Sodium 40 mg 01/02/20 16:45 01/03/20 09:00 Protonix - PO 40 mg DAILY EMILY Administration Phenol/Menthol 1 spray 01/01/20 14:16 Chloraseptic - MM PRN PRN SORE THROAT Fluticasone/Salmeterol 1 puff 12/30/19 10:00 01/03/20 21:52 Advair 100mcg/50mcg - IH 1 puff BID EMILY Administration Review of Systems Constitutional: denies Chills or Fever Respiratory: reports: Dyspnea Cardiovascular: As noted above Gastrointestinal: denies Nausea, Vomiting, Diarrhea or Constipation or Abdominal Discomfort Genitourinary: No Symptoms Reported Musculoskeletal: No Symptoms Reported Vital Signs: Last Vital Signs Temp Pulse Resp BP Pulse Ox 97.8 F 64 18 99/70 98 01/04/20 06:22 01/04/20 06:22 01/04/20 06:22 01/04/20 06:22 01/04/20 06:22 Intake & Output 0801/02/20 01/03/20 01/04/20 23:59 23:59 23:59 23:59 Intake Total 3700 2085 720 Output Total 2000 1100 1800 200 Balance 1700 985 -1080 -200 Weight 103 lb Neck: Supple Negative JVD Respiratory: Diminished Breath Sounds Bilaterally- Bases Cardiovascular: S1 S2 Regular Rate Rhythm Gastrointestinal: Soft Benign Normal Bowel Sounds Ext: Negative Edema Labs: CBC, BMP 01/04/20 06:35 01/04/20 06:35 CBC, BMP 01/03/20 06:01 01/03/20 06:01 Hepatic Panel Total Bilirubin 0.5 mg/dL (0.2-1) 01/03/20 06:01 AST 10 U/L (15-37) L 01/03/20 06:01 ALT 8 U/L (13-61) L 01/03/20 06:01 Alkaline Phosphatase 42 U/L (45-117) L 01/03/20 06:01 Albumin 2.6 g/dl (3.4-5.0) L 01/03/20 06:01 INR, PTT INR 1.27 (0.83-1.09) H 12/31/19 06:25 Assessment/Plan ASSESSMENT: 1. High-grade small bowel obstruction, clinically resolved 2. 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 Diastolic left ventricular dysfunction with clinical class 0 [employer] classification of ventricle failure 4. Hypertensive cardiovascular disease 5. Hypercholesterolemia 6. Advanced chronic obstructive pulmonary disease/exacerbation 7. History of hepatitis C/untreated 8. Anemia 9. Hypokalemia- resolved PLAN: 1. Bronchodilators as per the primary team 2. Recommend the addition of daily Ecotrin therapy unless it is absolutely contraindicated 3. Recommend the addition of beta-mulugeta therapy unless it is absolutely contraindicated, hemodynamics permitting 4. Recommend the addition of statin therapy unless it is absolutely contraindicated Neptali Arredondo MD
[2020-01-04 06:56] LABS: BASO % 0.7 % (0-2.0); EOS % 2.7 % (0-4.5); HEMATOCRIT 32.4 % (35.4-49); HEMOGLOBIN 10.6 GM/dL (11.7-16.9); MCH 27.1 pg (25.7-33.7); MCHC 32.7 g/dl (32.0-35.9); MEAN CELL VOLUME 82.9 fl (80-96); MEAN PLT VOLUME 8.9 fl (7.5-11.1); MONO % 10.5 % (3.8-10.2); NEUT % 46.1 % (42.8-82.8); PLATELET COUNT 196 K/MM3 (134-434); RDW 15.4 % (11.9-15.9); WHITE BLOOD COUNT 6.3 K/mm3 (4.0-10.0)
[2020-01-04 08:17] LABS: ALBUMIN 2.7 g/dl (3.4-5.0); BILIRUBIN,TOTAL 0.2 mg/dL (0.2-1); BLOOD UREA NITROGEN 9.2 mg/dL (7-18); CALCIUM 8.3 mg/dL (8.5-10.1); CREATININE 0.8 mg/dL (0.55-1.3); POTASSIUM 4.1 mmol/L (3.5-5.1); TOT PROT 5.5 g/dl (6.4-8.2)
[2020-01-04] MEDS: DOCUSATE SODIUM 100 MG CAPSULE (FP) PO SCH (09:00)
[2020-01-04] MEDS: oxyCODONE HCL 10 MG SUSTAINED ACTING TABLET PO SCH ×3 (09:00→22:21)
[2020-01-04] MEDS: NICOTINE 14 MG/24 HOURS TOPICAL PATCH TD SCH (09:01)
[2020-01-04] MEDS: PANTOPRAZOLE 40 MG TABLET PO SCH (09:01)
[2020-01-04] MEDS: FLUTICASONE/SALMETEROL 100 MCG/50 MCG DISKUS IH SCH (09:05)
--- NOTE | 2020-01-04 11:21 | PN ---
Physical Exam: SUBJECTIVE: Patient seen and examined She seen and examined passing gas did not go to bathroom for bowel movement today. No events yesterday. He still complaining of shortness of breath on minimal exertion. Seen by cardiology recommendation seen. OBJECTIVE: Vital Signs Period Temp Pulse Resp BP Sys/Monsalve Pulse Ox Last 24 Hr 97.8 F-98.1 F 64-120 18-22 99-116/66-76 94-100 GENERAL: The patient is awake, alert, and fully oriented, in no acute distress. HEAD: Normal with no signs of trauma. EYES: PERRL, extraocular movements intact, sclera anicteric, conjunctiva clear. No ptosis. ENT: Ears normal, nares patent, oropharynx clear without exudates, moist mucous membranes. NECK: Trachea midline, full range of motion, supple. LUNGS: Breath sounds equal, clear to auscultation bilaterally, no wheezes, no crackles, no accessory muscle use. HEART: Regular rate and rhythm, S1, S2 without murmur, rub or gallop. ABDOMEN: Soft, nontender, nondistended, normoactive bowel sounds, no guarding, no rebound, no hepatosplenomegaly, no masses. EXTREMITIES: 2+ pulses, warm, well-perfused, no edema. NEUROLOGICAL: Cranial nerves II through XII grossly intact. Normal speech, gait not observed. PSYCH: Normal mood, normal affect. SKIN: Warm, dry, normal turgor, no rashes or lesions noted Laboratory Results - last 24 hr 01/04/20 01/04/20 06:35 06:35 WBC 6.3 RBC 3.90 L Hgb 10.6 L Hct 32.4 L MCV 82.9 MCH 27.1 MCHC 32.7 RDW 15.4 Plt Count 196 MPV 8.9 Absolute Neuts (auto) 2.9 Neutrophils % 46.1 Lymphocytes % 40.0 D Monocytes % 10.5 H Eosinophils % 2.7 Basophils % 0.7 Nucleated RBC % 0 Sodium 143 Potassium 4.1 Chloride 109 H Carbon Dioxide 28 Anion Gap 6 L BUN 9.2 Creatinine 0.8 Est GFR (CKD-EPI)AfAm 104.17 Est GFR (CKD-EPI)NonAf 89.88 Random Glucose 79 Calcium 8.3 L Total Bilirubin 0.2 AST 12 L ALT 10 L Alkaline Phosphatase 38 L Total Protein 5.5 L Albumin 2.7 L Active Medications Generic Name Dose Route Start Last Admin Trade Name Freq PRN Reason Stop Dose Admin Acetaminophen 650 mg 01/02/20 16:41 Tylenol - PO Q6H PRN PAIN LEVEL 6-10 Albuterol Sulfate 2 puff 12/30/19 03:51 01/03/20 09:08 Ventolin Hfa Inhaler - IH 2 puff Q4H PRN Administration SHORT OF BREATH/WHEEZING Docusate Sodium 100 mg 01/02/20 16:45 01/04/20 09:00 Colace - PO 100 mg DAILY EMILY Administration Heparin Sodium (Porcine) 5,000 unit 12/30/19 11:00 01/04/20 06:20 Heparin - SQ 5,000 unit TID EMILY Administration Nicotine 14 mg 12/30/19 10:00 01/04/20 09:01 Nicoderm Patch - TD 14 mg DAILY EMILY Administration Oxycodone HCl 10 mg 01/03/20 13:30 01/03/20 21:44 Oxycontin - PO 10 mg BID EMILY Administration Pantoprazole Sodium 40 mg 01/02/20 16:45 01/04/20 09:01 Protonix - PO 40 mg DAILY EMILY Administration Phenol/Menthol 1 spray 01/01/20 14:16 Chloraseptic - MM PRN PRN SORE THROAT Fluticasone/Salmeterol 1 puff 12/30/19 10:00 01/04/20 09:05 Advair 100mcg/50mcg - IH 1 puff BID EMILY Administration Tiotropium [place] 2 puff 01/04/20 11:00 Spiriva Respimat IH DAILY [facility] ASSESSMENT/PLAN: 69 years old male who was admitted to the hospital for high-grade abdominal intestinal obstruction which has been resolved now Also hypertension hyperlipidemia COPD. At this time his obstruction is resolved. But he still complaining of shortness of breath on minimal exertion. He is seen by pulmonary and cardiac. Recommended patient should go on aspirin and beta-mulugeta. We will start him on Spiriva for his COPD Oxygen evaluation prior to discharge. Visit type - Emergency Visit Emergency Visit: Yes ED Registration Date: 12/30/19 Care time: The patient presented to the Emergency Department on the above date and was hospitalized for further evaluation of their emergent condition. - New Patient This patient is new to me today: Yes Date on this admission: 01/04/20 - Critical Care Critical Care patient: No - Discharge Referral Referred to [facility] Med P.C.: No - Medication Review Med list reviewed for High Risk Meds patients 65 and older: Yes
--- NOTE | 2020-01-04 11:52 | CON.PULM ---
Consult Consult Specialty:: PULMONARY Referred by:: Dr Wilkerson Reason for Consultation:: shortness of breath - History of Present Illness Chief Complaint: abdominal pain History of Present Illness: 69yo male with h/o COPD, Hep C, recurrent SBO who was admitted with abdominal pain. Found to have recurrent SBO which has since resolved with conservative management. He reports he has been short of breath for the past 3 years and has been progressively worsening. Has a mild cough and he does hear wheezing occasionally. No fevers, chills or sweats. He is a long time smoker, smokes 4 cigarettes/day. - History Source History Provided By: Patient, Medical Record Limitations to Obtaining History: No Limitations - Past Medical History Pulmonary: Yes: COPD Gastrointestinal: Yes: Other (recurrent SBO - s/p SB resection for SBO, revision of SB anastomosis for SBO) Hepatobiliary: Yes: Hepatitis C Musculoskeletal: Yes: Chronic low back pain, Osteoarthritis (uses walker at home) - Past Surgical History Past Surgical History: Yes: Appendectomy, Colonoscopy, Hernia Repair (right inguinal (unknown if mesh used)) - Alcohol/Substance Use Hx Alcohol Use: Yes (quit a few years ago, rarely now) History of Substance Use: reports: Prescription (uses Rx oxycodone/pain meds as prescribed). denies: Marijuana (has medical MJ card but has not used any yet) - Smoking History Smoking history: Current some day smoker Have you smoked in the past 12 months: No Aproximately how many cigarettes per day: 4 If you are a former smoker, when did you quit?: 1 yr ago - Social History ADL: Independent History of Recent Travel: No Home Medications - Allergies Allergies/Adverse Reactions: Allergies Allergy/AdvReac Type Severity Reaction Status Date / Time No Known Allergies Allergy Verified 12/29/19 19:13 - Home Medications Home Medications: Ambulatory Orders Ipratropium/Albuterol Sulfate [Combivent Respimat 20-100 Mcg] 4 gm IH BID 10/13/17 Fluticasone/Salmeterol [Advair 250-50 Diskus] 1 each IH BID 06/15/19 Gabapentin [Neurontin] 300 mg PO HS 06/15/19 traZODone HCL [Trazodone HCl] 50 mg PO HS PRN 06/15/19 Docusate Sodium [Colace -] 100 mg PO BID #60 capsule 06/26/19 Polyethylene Glycol 3350 [Miralax 119 gm Btl -] 17 gm PO DAILY #1 bottle 06/27/19 Doxepin HCl 75 mg PO DAILY 06/30/19 Mirtazapine 30 mg PO DAILY 06/30/19 Oxycodone HCl [Oxycodone HCl ER] 10 mg PO BID 01/01/20 Review of Systems - Review of Systems Constitutional: reports: Weakness. denies: Chills, Fever Eyes: denies: Recent Change in Vision HENT: denies: Nasal Congestion, Throat Pain Neck: denies: Stiffness, Tenderness Cardiovascular: reports: Shortness of Breath. denies: Chest Pain, Edema, Palpitations Respiratory: reports: Cough, SOB on Exertion, Wheezing. denies: Hemoptysis Gastrointestinal: reports: Abdominal Pain. denies: Nausea, Vomiting Genitourinary: denies: Dysuria, Hematuria Neurological: denies: Dizziness, Headache Endocrine: denies: Unexplained Weight Loss Physical Exam Vital Sings: Vital Signs Temperature 98 F 01/04/20 09:21 Pulse Rate 85 01/04/20 09:21 Respiratory Rate 20 01/04/20 09:21 Blood Pressure 114/71 01/04/20 09:21 O2 Sat by Pulse Oximetry (%) 100 01/04/20 09:21 Constitutional: Yes: Calm Eyes: Yes: Conjunctiva Clear, EOM Intact HENT: Yes: Atraumatic, Normocephalic Neck: Yes: Supple, Trachea Midline Cardiovascular: Yes: Regular Rate and Rhythm Respiratory: Yes: Poor Air Entry ...Clubbing: No Gastrointestinal: Yes: Normal Bowel Sounds, Soft. No: Tenderness Edema: No Labs: CBC, BMP 01/04/20 06:35 01/04/20 06:35 Imaging - Results Chest X-ray: Report Reviewed, Image Reviewed (hyperinflated) Assessment/Plan COPD Recurrent SBO Hep C Smoker - will change his advair to symbicort 160 - continue spiriva - albuterol as needed - trial of medrol today - will need outpt PFTs and f/u - DVT prophylaxis Thank you for this consult Khadar Mcgowan MD
[2020-01-04] MEDS: ALBUTEROL SO4 0.083% IH SOL 2.5 MG/3 ML VIAL.NEB. NEB SCH ×3 (12:43→20:50)
[2020-01-04] MEDS: methylPREDNISolone NA SUCC 40 MG/1 ML VIAL IVPUSH SCH ×2 (13:42→17:23)
[2020-01-04] MEDS: TIOTROPIUM BROMIDE 2.5 MCG (SPIRIVA) RESPIMAT INHALER IH SCH (13:43)
[2020-01-04] MEDS: BUDESONIDE/FORMETEROL FUMARATE 160/4.5 mcg INHALER IH SCH (22:22)
[2020-01-04] MEDS ORDERED: MELATONIN 1 MG TABLET PO PRN (23:24)
[2020-01-05] MEDS: methylPREDNISolone NA SUCC 40 MG/1 ML VIAL IVPUSH SCH ×3 (01:35→17:18)
[2020-01-05] MEDS: HEPARIN NA (PORCINE) 5,000 UNITS/ML 1ML VIAL SQ SCH ×3 (05:54→22:36)
[2020-01-05] MEDS: ALBUTEROL SO4 0.083% IH SOL 2.5 MG/3 ML VIAL.NEB. NEB SCH ×4 (09:05→19:54)
[2020-01-05] MEDS: PANTOPRAZOLE 40 MG TABLET PO SCH (09:44)
[2020-01-05] MEDS: NICOTINE 14 MG/24 HOURS TOPICAL PATCH TD SCH (09:44)
[2020-01-05] MEDS: oxyCODONE HCL 10 MG SUSTAINED ACTING TABLET PO SCH ×2 (09:44→21:49)
[2020-01-05] MEDS: DOCUSATE SODIUM 100 MG CAPSULE (FP) PO SCH (09:44)
[2020-01-05] MEDS: BUDESONIDE/FORMETEROL FUMARATE 160/4.5 mcg INHALER IH SCH ×2 (09:45→21:50)
[2020-01-05] MEDS: TIOTROPIUM BROMIDE 2.5 MCG (SPIRIVA) RESPIMAT INHALER IH SCH (09:45)
--- NOTE | 2020-01-05 10:27 | PN ---
Progress Note, Physician History of Present Illness: Abd pain and distension resolved. Passing flatus and BM, tolerating liquids, c/o chronic THURMAN, does not have ambulatory desat qualifying for home O2 (92%). - Current Medication List Current Medications: Active Medications Acetaminophen (Tylenol -) 650 mg PO Q6H PRN PRN Reason: PAIN LEVEL 6-10 Albuterol Sulfate (Ventolin Hfa Inhaler -) 2 puff IH Q4H PRN PRN Reason: SHORT OF BREATH/WHEEZING Last Admin: 01/03/20 09:08 Dose: 2 puff Documented by: Albuterol Sulfate (Ventolin 0.083% Nebulizer Soln -) 1 amp NEB RQID [facility] Last Admin: 01/05/20 09:05 Dose: 1 amp Documented by: Budesonide/Formoterol Fumarate (Symbicort 160/4.5mcg -) 2 puff IH BID [facility] Last Admin: 01/05/20 09:45 Dose: 2 puff Documented by: Docusate Sodium (Colace -) 100 mg PO DAILY [facility] Last Admin: 01/05/20 09:44 Dose: Not Given Documented by: Heparin Sodium (Porcine) (Heparin -) 5,000 unit SQ TID [facility] Last Admin: 01/05/20 05:54 Dose: 5,000 unit Documented by: Melatonin (Melatonin) 3 mg PO ONCE PRN PRN Reason: INSOMNIA Last Admin: 01/04/20 23:40 Dose: 3 mg Documented by: Methylprednisolone Sodium Succinate (Solu-Medrol -) 40 mg IVPUSH Q8H-IV [facility] Last Admin: 01/05/20 09:45 Dose: 40 mg Documented by: Nicotine (Nicoderm Patch -) 14 mg TD DAILY [facility] Last Admin: 01/05/20 09:44 Dose: 14 mg Documented by: Oxycodone HCl (Oxycontin -) 10 mg PO BID [facility] Last Admin: 01/05/20 09:44 Dose: 10 mg Documented by: Pantoprazole Sodium (Protonix -) 40 mg PO DAILY [facility] Last Admin: 01/05/20 09:44 Dose: 40 mg Documented by: Phenol/Menthol (Chloraseptic -) 1 spray MM PRN PRN PRN Reason: SORE THROAT Tiotropium [place] (Spiriva Respimat) 2 puff IH DAILY [facility] Last Admin: 01/05/20 09:45 Dose: 2 puff Documented by: - Objective Vital Signs: Vital Signs Temperature 98.0 F 01/05/20 06:39 Pulse Rate 66 01/05/20 06:39 Respiratory Rate 01/05/20 06:39 Blood Pressure 103/67 01/05/20 06:39 O2 Sat by Pulse Oximetry (%) 95 01/05/20 06:39 Constitutional: Yes: No Distress, Calm, Thin Neck: Yes: Supple Cardiovascular: Yes: Regular Rate and Rhythm Respiratory: Yes: Regular, Diminished, On Nasal O2, SOB Gastrointestinal: Yes: Soft, Hypoactive Bowel Sounds Edema: No Labs: CBC, BMP 01/04/20 06:35 01/04/20 06:35 INR, PTT INR 1.27 (0.83-1.09) H 12/31/19 06:25 Problem List - Problems (1) Coronary artery calcification Code(s): I25.10 - ATHSCL HEART DISEASE OF [place] CORONARY ARTERY W/O ANG PCTRS; I25.84 - CORONARY ATHEROSCLEROSIS DUE TO CALCIFIED CORONARY LESION (2) SBO (small bowel obstruction) Code(s): K56.609 - UNSP INTESTNL OBST, UNSP TO PARTIAL VERSUS COMPLETE OBST (3) COPD (chronic obstructive pulmonary disease) Code(s): J44.9 - CHRONIC OBSTRUCTIVE PULMONARY DISEASE, UNSPECIFIED Qualifiers: COPD type: unspecified COPD Qualified Code(s): J44.9 - Chronic obstructive pulmonary disease, unspecified (4) Diastolic dysfunction without heart failure Code(s): I51.89 - OTHER ILL-DEFINED HEART DISEASES Assessment/Plan 1. Recurrent high-grade small bowel obstruction, clinically resolved 2. 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 Diastolic left ventricular dysfunction with clinical class 0 [place] [employer] classification of ventricle failure 4. Hypertensive cardiovascular disease 5. Hypercholesterolemia 6. Advanced chronic obstructive pulmonary disease/exacerbation 7. History of hepatitis C/untreated 8. Anemia 9. Hypokalemia- resolved PLAN: 1. Bronchodilators, O2 and steroid trial as per the primary team 2. Recommend the addition of daily Ecotrin therapy unless it is absolutely contraindicated 3. Recommend the addition of beta-mulugeta therapy unless it is absolutely contraindicated, hemodynamics permitting 4. Recommend the addition of statin therapy unless it is absolutely contraindicated 5. Stress testing as outpatient to r/o ischemia
--- NOTE | 2020-01-05 14:54 | PN ---
Progress Note (short form) - Note Progress Note: PULMONARY States breathing still the same. Dyspneic with minimal exertion. Vital Signs Period Temp Pulse Resp BP Sys/Monsalve Pulse Ox Last 24 Hr 98.0 F-98.4 F 66-92 20-20 103-124/62-74 95-97 Gen: NAD at rest Heart: RRR Lung: poor air movement Abd: soft, nontender Ext: no edema CBC, BMP 01/04/20 06:35 01/04/20 06:35 Active Medications Acetaminophen (Tylenol -) 650 mg PO Q6H PRN PRN Reason: PAIN LEVEL 6-10 Albuterol Sulfate (Ventolin Hfa Inhaler -) 2 puff IH Q4H PRN PRN Reason: SHORT OF BREATH/WHEEZING Last Admin: 01/03/20 09:08 Dose: 2 puff Documented by: Albuterol Sulfate (Ventolin 0.083% Nebulizer Soln -) 1 amp NEB RQID [facility] Last Admin: 01/05/20 11:35 Dose: 1 amp Documented by: Budesonide/Formoterol Fumarate (Symbicort 160/4.5mcg -) 2 puff IH BID [facility] Last Admin: 01/05/20 09:45 Dose: 2 puff Documented by: Docusate Sodium (Colace -) 100 mg PO DAILY [facility] Last Admin: 01/05/20 09:44 Dose: Not Given Documented by: Heparin Sodium (Porcine) (Heparin -) 5,000 unit SQ TID [facility] Last Admin: 01/05/20 13:37 Dose: 5,000 unit Documented by: Melatonin (Melatonin) 3 mg PO ONCE PRN PRN Reason: INSOMNIA Last Admin: 01/04/20 23:40 Dose: 3 mg Documented by: Methylprednisolone Sodium Succinate (Solu-Medrol -) 40 mg IVPUSH Q8H-IV [facility] Last Admin: 01/05/20 09:45 Dose: 40 mg Documented by: Nicotine (Nicoderm Patch -) 14 mg TD DAILY [facility] Last Admin: 01/05/20 09:44 Dose: 14 mg Documented by: Oxycodone HCl (Oxycontin -) 10 mg PO BID [facility] Last Admin: 01/05/20 09:44 Dose: 10 mg Documented by: Pantoprazole Sodium (Protonix -) 40 mg PO DAILY [facility] Last Admin: 01/05/20 09:44 Dose: 40 mg Documented by: Phenol/Menthol (Chloraseptic -) 1 spray MM PRN PRN PRN Reason: SORE THROAT Tiotropium [place] (Spiriva Respimat) 2 puff IH DAILY EMILY Last Admin: 01/05/20 09:45 Dose: 2 puff Documented by: A/P Acute COPD Exacerbation Recurrent SBO Hep C Smoker - continue medrol - inhaled bronchodilators - symbicort - continue spiriva - will need outpt PFTs and f/u - DVT prophylaxis
--- NOTE | 2020-01-05 21:54 | PN ---
Physical Exam: SUBJECTIVE: Patient seen and examined. Pt. endorses tolerating PO and is passing gas and stool. Pt. still c/o dyspnea on exertion. OBJECTIVE: Vital Signs Period Temp Pulse Resp BP Sys/Monsalve Pulse Ox Last 24 Hr 98 F-98.4 F 66-113 18-20 103-128/62-85 95-99 GENERAL: The patient is awake, alert, and fully oriented, in no acute distress. HEAD: Normal with no signs of trauma. EYES: Sclera anicteric, conjunctiva clear. ENT: Ears normal, nares patent, oropharynx clear without exudates, moist mucous membranes. NECK: Trachea midline, full range of motion, supple. LUNGS: Breath sounds equal, clear to auscultation bilaterally, no wheezes, no crackles, no accessory muscle use. HEART: Regular rate and rhythm, S1, S2 without murmur, rub or gallop. ABDOMEN: firm but not rigid, Nontender, nondistended, bowel sounds present, no guarding, no rebound, no hepatosplenomegaly, no masses. EXTREMITIES: 2+ dorsal pedal and radial pulses, no calf tenderness, warm, well- perfused, no edema. NEUROLOGICAL: Normal speech, gait not observed. PSYCH: Normal mood, normal affect. SKIN: Warm, dry, normal turgor Laboratory Results - last 24 hr 01/05/20 04:00 Stool Occult Blood Negative Active Medications Generic Name Dose Route Start Last Admin Trade Name Freq PRN Reason Stop Dose Admin Acetaminophen 650 mg 01/02/20 16:41 Tylenol - PO Q6H PRN PAIN LEVEL 6-10 Albuterol Sulfate 2 puff 12/30/19 03:51 01/03/20 09:08 Ventolin Hfa Inhaler - IH 2 puff Q4H PRN Administration SHORT OF BREATH/WHEEZING Albuterol Sulfate 1 amp 01/04/20 12:00 01/05/20 19:54 Ventolin 0.083% Nebulizer Soln - NEB 1 amp RQID EMILY Administration Budesonide/Formoterol Fumarate 2 puff 01/04/20 22:00 01/05/20 21:50 Symbicort 160/4.5mcg - IH 2 puff BID EMILY Administration Docusate Sodium 100 mg 01/02/20 16:45 01/05/20 09:44 Colace - PO Not Given DAILY EMILY Heparin Sodium (Porcine) 5,000 unit 12/30/19 11:00 01/05/20 13:37 Heparin - SQ 5,000 unit TID EMILY Administration Melatonin 3 mg 01/04/20 23:24 01/04/20 23:40 Melatonin PO 3 mg ONCE PRN Administration INSOMNIA Methylprednisolone Sodium Succinate 40 mg 01/04/20 12:00 01/05/20 17:18 Solu-Medrol - IVPUSH 40 mg Q8H-IV EMILY Administration Nicotine 14 mg 12/30/19 10:00 01/05/20 09:44 Nicoderm Patch - TD 14 mg DAILY EMILY Administration Oxycodone HCl 10 mg 01/03/20 13:30 01/05/20 21:49 Oxycontin - PO 10 mg BID EMILY Administration Pantoprazole Sodium 40 mg 01/02/20 16:45 01/05/20 09:44 Protonix - PO 40 mg DAILY EMILY Administration Phenol/Menthol 1 spray 01/01/20 14:16 Chloraseptic - MM PRN PRN SORE THROAT Tiotropium [place] 2 puff 01/04/20 11:00 01/05/20 09:45 Spiriva Respimat IH 2 puff DAILY EMILY Administration ASSESSMENT/PLAN: Pt. is a 69 y.o. M w/ PMHx. 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 Expresses concern that he is having pain similar to his SBO symptoms from a couple of years prior. Last flatus or BM was 2d prior to admission. CT imaging showing SBO. Admitted for SBO. #SBO --likely 2/2 abdominal adhesions- resolved - CT A/P: High-grade SBO, difficult to determine transition point - NGT removed - pain mgmt: morphine - Surgery consult(Pradip) appreciated - Cardiology consult appreciated for clearance for possible NHI--> no contraindications to surgery if needed.--> Will recommend follow up w/ PCP to initiate ASA, BB and statin - Passed flatus today 10/31/19 - AXR 12/31/19 shows improvement? no signs of ileus of obstruction #Normocytic Anemia -chronic/stable - Pt. presented with HgB of 13.5 --> 11.6 -->9.7--> 10.9 today. I suspected that HgB was elevated because of decreased PO intake because of ileus and slight dehydration as chemistry indicated. Today there is a continued 2 unit decline but without clinical signs of overt bleeding. - f/u FOBT, Iron studies, haptoblobin - Normal transfusion threshold - Reticulocyte count: 1.23 indicating an in appropriate response to anemia. As Pt.s hemoglobin improved today will continue to trend. Pt. likely has anemia secondary to chronic disease (COPD and Hep C.) Cannot rule out MDS. #COPD-chronic. stable - albuterol PRN - started Symbicort - f/u Pre and Post; inquired about pulm rehab - c/w home medications - nicotine patch PRN - will taper Medrol in AM #FEN - LR @125 - monitor and replete as needed - Diet advanced to clears per surgery #DVT PPX - SCDs Visit type - Emergency Visit Emergency Visit: Yes ED Registration Date: 12/30/19 Care time: The patient presented to the Emergency Department on the above date and was hospitalized for further evaluation of their emergent condition. - New Patient This patient is new to me today: No - Critical Care Critical Care patient: No - Discharge Referral Referred to [facility] Med P.C.: No - Medication Review Med list reviewed for High Risk Meds patients 65 and older: Yes ATTENDING PHYSICIAN STATEMENT I saw and evaluated the patient. I reviewed the resident's note and discussed the case with the resident. I agree with the resident's findings and plan as documented. SUBJECTIVE: OBJECTIVE: ASSESSMENT AND PLAN:
[2020-01-06] MEDS: MELATONIN 1 MG TABLET PO PRN ×2 (00:01→22:08)
[2020-01-06] MEDS: methylPREDNISolone NA SUCC 40 MG/1 ML VIAL IVPUSH SCH ×3 (01:31→14:46)
[2020-01-06] MEDS: HEPARIN NA (PORCINE) 5,000 UNITS/ML 1ML VIAL SQ SCH ×3 (06:13→21:13)
[2020-01-06] MEDS: ALBUTEROL SO4 0.083% IH SOL 2.5 MG/3 ML VIAL.NEB. NEB SCH ×4 (07:19→20:38)
--- NOTE | 2020-01-06 08:00 | PN ---
Progress Note, Physician History of Present Illness: pulmonary alert,comfortable on nasal o2,-sob at rest,+ brown,o2 sat 100. - Current Medication List Current Medications: Active Medications Acetaminophen (Tylenol -) 650 mg PO Q6H PRN PRN Reason: PAIN LEVEL 6-10 Albuterol Sulfate (Ventolin Hfa Inhaler -) 2 puff IH Q4H PRN PRN Reason: SHORT OF BREATH/WHEEZING Last Admin: 01/03/20 09:08 Dose: 2 puff Documented by: Albuterol Sulfate (Ventolin 0.083% Nebulizer Soln -) 1 amp NEB RQID [facility] Last Admin: 01/06/20 07:19 Dose: 1 amp Documented by: Budesonide/Formoterol Fumarate (Symbicort 160/4.5mcg -) 2 puff IH BID [facility] Last Admin: 01/05/20 21:50 Dose: 2 puff Documented by: Docusate Sodium (Colace -) 100 mg PO DAILY [facility] Last Admin: 01/05/20 09:44 Dose: Not Given Documented by: Heparin Sodium (Porcine) (Heparin -) 5,000 unit SQ TID [facility] Last Admin: 01/06/20 06:13 Dose: 5,000 unit Documented by: Melatonin (Melatonin) 3 mg PO HS PRN PRN Reason: INSOMNIA Last Admin: 01/06/20 00:01 Dose: 3 mg Documented by: Methylprednisolone Sodium Succinate (Solu-Medrol -) 40 mg IVPUSH Q8H-IV [facility] Last Admin: 01/06/20 01:31 Dose: 40 mg Documented by: Nicotine (Nicoderm Patch -) 14 mg TD DAILY [facility] Last Admin: 01/05/20 09:44 Dose: 14 mg Documented by: Oxycodone HCl (Oxycontin -) 10 mg PO BID [facility] Last Admin: 01/05/20 21:49 Dose: 10 mg Documented by: Pantoprazole Sodium (Protonix -) 40 mg PO DAILY [facility] Last Admin: 01/05/20 09:44 Dose: 40 mg Documented by: Phenol/Menthol (Chloraseptic -) 1 spray MM PRN PRN PRN Reason: SORE THROAT Tiotropium [place] (Spiriva Respimat) 2 puff IH DAILY [facility] Last Admin: 01/05/20 09:45 Dose: 2 puff Documented by: - Objective Vital Signs: Vital Signs Temperature 98.2 F 01/06/20 06:58 Pulse Rate 64 01/06/20 06:58 Respiratory Rate 18 01/06/20 06:58 Blood Pressure 105/65 01/06/20 06:58 O2 Sat by Pulse Oximetry (%) 95 01/06/20 06:58 Constitutional: Yes: Calm, Thin Eyes: Yes: WNL HENT: Yes: WNL Neck: Yes: WNL Cardiovascular: Yes: Regular Rate and Rhythm, S2 Respiratory: Yes: Diminished Gastrointestinal: Yes: Normal Bowel Sounds, Soft Extremities: Yes: WNL Edema: No Labs: CBC, BMP 01/04/20 06:35 01/04/20 06:35 INR, PTT INR 1.27 (0.83-1.09) H 12/31/19 06:25 Assessment/Plan A/P Acute COPD Exacerbation improving Recurrent SBO Hep C Smoker - taper medrol - inhaled bronchodilators - symbicort - spiriva - will need outpt PFTs and f/u - DVT prophylaxis - pt does not qualify for home o2 - consider pulmonary rehab after discharge DR DIALLO
[2020-01-06] MEDS: PANTOPRAZOLE 40 MG TABLET PO SCH (09:52)
[2020-01-06] MEDS: oxyCODONE HCL 10 MG SUSTAINED ACTING TABLET PO SCH ×2 (09:52→21:13)
[2020-01-06] MEDS: DOCUSATE SODIUM 100 MG CAPSULE (FP) PO SCH (09:52)
[2020-01-06] MEDS: NICOTINE 14 MG/24 HOURS TOPICAL PATCH TD SCH (09:52)
[2020-01-06] MEDS: TIOTROPIUM BROMIDE 2.5 MCG (SPIRIVA) RESPIMAT INHALER IH SCH (09:53)
[2020-01-06] MEDS: BUDESONIDE/FORMETEROL FUMARATE 160/4.5 mcg INHALER IH SCH ×2 (09:53→21:17)
--- NOTE | 2020-01-06 14:40 | PN ---
Teaching Attending Note Name of Resident: Ajit Fernando ATTENDING PHYSICIAN STATEMENT I saw and evaluated the patient. I reviewed the resident's note and discussed the case with the resident. I agree with the resident's findings and plan as documented. SUBJECTIVE: Seen and examined at bedside. Patient tolerating p.o. and has had bowel moveme nt. Patient complaining of dyspnea but is still saturating well. Solu-Medrol tapered. Plan for discharge tomorrow. Patient will benefit from pulmonary rehab. OBJECTIVE Last Vital Signs Temp Pulse Resp BP Pulse Ox 98.3 F 73 19 134/62 96 01/06/20 13:35 01/06/20 13:35 01/06/20 13:35 01/06/20 13:35 01/06/20 13:35 PE: Per resident note Labs/Imaging: reviewed ASSESSMENT/PLAN 69-year-old male past medical history of COPD, hepatitis C untreated, recurrent SBO presents with SBO. #SBO: Resolved #COPD exacerbation Patient reports subjective dyspnea despite good O2 levels. Has poor air movement on exam Pulmonary on board: Appreciate recommendationsTaper Solu-Medrol Continue home medications Symbicort Will benefit from outpatient pulmonary rehab
--- NOTE | 2020-01-06 15:22 | PN ---
Teaching Attending Note Name of Resident: Ajit Fernando ATTENDING PHYSICIAN STATEMENT I saw and evaluated the patient. I reviewed the resident's note and discussed the case with the resident. I agree with the resident's findings and plan as documented. SUBJECTIVE: Patient seen and examined at bedside, endorses THURMAN, but not qualifying for home O2, will need Pulmonary rehab, VS otherwise stable. OBJECTIVE: Vital Signs Period Temp Pulse Resp BP Sys/Monsalve Pulse Ox Last 24 Hr 98.3 F-98.6 F 51-66 16-18 105-119/64-74 95-98 GENERAL: The patient is awake, alert, and fully oriented, in no acute distress. HEAD: Normal with no signs of trauma. EYES: PERRL, extraocular movements intact, sclera anicteric, conjunctiva clear. No ptosis. ENT: Ears normal, nares patent, oropharynx clear without exudates, moist mucous membranes. NECK: Trachea midline, full range of motion, supple. LUNGS: Breath sounds equal, clear to auscultation bilaterally, no wheezes, no crackles, no accessory muscle use. HEART: Regular rate and rhythm, S1, S2 without murmur, rub or gallop. ABDOMEN: Soft, nontender, nondistended, normoactive bowel sounds, no guarding, no rebound, no hepatosplenomegaly, no masses. EXTREMITIES: 2+ pulses, warm, well-perfused, no edema. NEUROLOGICAL: Cranial nerves II through XII grossly intact. Normal speech, gait not observed. PSYCH: Normal mood, normal affect. SKIN: Warm, dry, normal turgor, no rashes or lesions noted Vital Signs (72 hours) 01/03/20 01/03/20 01/04/20 21:00 21:15 06:22 Temperature 97.9 F 97.8 F Pulse Rate 75 64 Respiratory 22 H 22 H 18 Rate Blood Pressure 112/66 99/70 O2 Sat by Pulse 99 99 98 Oximetry (%) 01/04/20 01/04/20 01/04/20 09:00 09:21 13:42 Temperature 98 F 98.2 F Pulse Rate 85 86 Respiratory 20 20 Rate Blood Pressure 114/71 109/77 O2 Sat by Pulse 100 100 98 Oximetry (%) 01/04/20 01/04/20 01/05/20 19:00 20:52 01:00 Temperature 98.2 F 98.2 F Pulse Rate 72 75 Respiratory 20 20 20 Rate Blood Pressure 124/74 103/62 O2 Sat by Pulse 97 97 97 Oximetry (%) 01/05/20 01/05/20 01/05/20 06:39 09:00 10:00 Temperature 98.0 F 98.4 F Pulse Rate 66 73 Respiratory 20 20 20 Rate Blood Pressure 103/67 113/67 O2 Sat by Pulse 95 96 96 Oximetry (%) 01/05/20 01/05/20 01/05/20 13:34 16:30 19:00 Temperature 98.3 F 98.0 F 98 F Pulse Rate 92 H 113 H 80 Respiratory 20 18 20 Rate Blood Pressure 103/63 128/85 121/78 O2 Sat by Pulse 96 99 Oximetry (%) 01/05/20 01/06/20 01/06/20 21:00 02:00 06:58 Temperature 98.2 F 98.2 F Pulse Rate 68 64 Respiratory 18 18 18 Rate Blood Pressure 106/68 105/65 O2 Sat by Pulse 96 96 95 Oximetry (%) 01/06/20 01/06/20 01/06/20 09:00 10:30 13:35 Temperature 98.4 F 98.3 F Pulse Rate 72 73 Respiratory 19 19 Rate Blood Pressure 115/70 134/62 O2 Sat by Pulse 96 100 96 Oximetry (%) Home Medications Medication Instructions Recorded Ipratropium/Albuterol Sulfate 4 gm IH BID 10/13/17 [Combivent Respimat 20-100 Mcg] Fluticasone/Salmeterol [Advair 1 each IH BID 06/15/19 250-50 Diskus] Gabapentin [Neurontin] 300 mg PO HS 06/15/19 traZODone HCL [Trazodone HCl] 50 mg PO HS PRN 06/15/19 Docusate Sodium [Colace -] 100 mg PO BID #60 capsule 06/26/19 Polyethylene Glycol 3350 [Miralax 17 gm PO DAILY #1 bottle 06/27/19 119 gm Btl -] Doxepin HCl 75 mg PO DAILY 06/30/19 Mirtazapine 30 mg PO DAILY 06/30/19 Oxycodone HCl [Oxycodone HCl ER] 10 mg PO BID 01/01/20 Prednisone See Taper PO DAILY #30 tablet 01/06/20 Current Medications Generic Name Dose Route Start Last Admin Trade Name Freq PRN Reason Stop Dose Admin Acetaminophen 650 mg 01/02/20 16:41 Tylenol - PO Q6H PRN PAIN LEVEL 6-10 Albuterol Sulfate 2 puff 12/30/19 03:51 01/03/20 09:08 Ventolin Hfa Inhaler - IH 2 puff Q4H PRN Administration SHORT OF BREATH/WHEEZING Albuterol Sulfate 1 amp 01/04/20 12:00 01/06/20 11:03 Ventolin 0.083% Nebulizer Soln - NEB 1 amp RQID EMILY Administration Budesonide/Formoterol Fumarate 2 puff 01/04/20 22:00 01/06/20 09:53 Symbicort 160/4.5mcg - IH 2 puff BID EMILY Administration Docusate Sodium 100 mg 01/02/20 16:45 01/06/20 09:52 Colace - PO 100 mg DAILY EMILY Administration Heparin Sodium (Porcine) 5,000 unit 12/30/19 11:00 01/06/20 13:13 Heparin - SQ 5,000 unit TID EMILY Administration Melatonin 3 mg 01/05/20 22:43 01/06/20 00:01 Melatonin PO 3 mg HS PRN Administration INSOMNIA Methylprednisolone Sodium Succinate 40 mg 01/06/20 14:30 01/06/20 14:46 Solu-Medrol - IVPUSH 40 mg Q12H EMILY Administration Nicotine 14 mg 12/30/19 10:00 01/06/20 09:52 Nicoderm Patch - TD 14 mg DAILY EMILY Administration Oxycodone HCl 10 mg 01/03/20 13:30 01/06/20 09:52 Oxycontin - PO 10 mg BID EMILY Administration Pantoprazole Sodium 40 mg 01/02/20 16:45 01/06/20 09:52 Protonix - PO 40 mg DAILY EMILY Administration Phenol/Menthol 1 spray 01/01/20 14:16 Chloraseptic - MM PRN PRN SORE THROAT Tiotropium [place] 2 puff 01/04/20 11:00 01/06/20 09:53 Spiriva Respimat IH 2 puff DAILY EMILY Administration ASSESSMENT AND PLAN: 69 M High grade SBO resolving HTN HLD Uncontrolled COPD s/p appendectomy Hepatitis C (untreated) Hypomagnesemia Plan: cont. regular diet, small meals, PO hydration Duonebs PRN for SOB, needs pulmonary evaluation may benefit pulmonary rehab reports MMRC dyspnea scale of 4, does not qualify for home O2 PPI DC IV fluids DVT ppx: Heparin SC
--- NOTE | 2020-01-06 15:47 | DS ---
Physical Exam: SUBJECTIVE: Patient seen and examined. No acute events overnight. OBJECTIVE: Vital Signs Period Temp Pulse Resp BP Sys/Monsalve Pulse Ox Last 24 Hr 98 F-98.4 F 64-113 18-20 105-134/62-85 95-100 PHYSICAL EXAM GENERAL: The patient is awake, alert, and fully oriented, in no acute distress. HEAD: Normal with no signs of trauma. EYES: PERRL, extraocular movements intact, sclera anicteric, conjunctiva clear. ENT: Ears normal, nares patent, oropharynx clear without exudates, moist mucous membranes. NECK: Trachea midline, full range of motion, supple. LUNGS: Breath sounds equal, clear to auscultation bilaterally, no wheezes, no crackles, no accessory muscle use. HEART: Regular rate and rhythm, S1, S2 without murmur, rub or gallop. ABDOMEN: Soft, nontender, nondistended, normoactive bowel sounds, no guarding, no rebound, no hepatosplenomegaly, no masses. EXTREMITIES: 2+ pulses, warm, well-perfused, no edema. NEUROLOGICAL: Cranial nerves II through XII grossly intact. Normal speech, gait not observed. PSYCH: Normal mood, normal affect. SKIN: Warm, dry, normal turgor, no rashes or lesions noted. LABS HOSPITAL COURSE: Date of Admission:12/30/19 Date of Discharge: 01/06/20 Pt. is a 69 yo male with a PMHx of COPD, s/p appendectomy. 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 Denied fever or chills. ER course was notable for Tmax of 100.1F, HR 104-110, ANETA of 123/88. CT A/P showed SBM with small bowel dilated up to 4.0cm, no abscess or free air, collapsed colon, and a transition point in the left mid lower. Pt was started on ofirmev, dilaudid 0.5mg, NS 1000, and LR at 125. NGT was placed with an immediate 1.2L of thick green output. Pt was admitted for SBO. Pt was on NGT to S, strict NPO, and pain management via morphine. Per surgery consult: NPO, IVF, monitor electros and replete prn, antiemetics, GI ppx, dvt ppx, serial abd exams, serial axrs (flat and upright), monitor NGT output and record qshift, medical optimization, and cardiac consult in case of need of surgery. Per cardio consult: need EKG, no need for any further cardiac testing, and no absolute CI for surgery. EKG showed sinus tali, otherwise unremarkable. Will recommend follow-up with PCP to initiate ASA, BB, and statin. On 12/31/19, pt passed flatus and axr showed signs of improvement with no signs of ileus of obstruction. . For his COPD, pulm was consulted and pt was started on alubetrol PRN, Symbicort, cont with home meds, nicotine patch PRN, and Medrol taper. Pt. will need outpatient PFTs and f/u. During the course of the stay pt was also worked up for chronic/stable normocytic anemia likely secondary to chronic disease (ie COPD and HepC), however we can not rule out MDS. Medicine adjustment and hospital follow-up is noted below. Pt is medically stabilized and discharged home to follow up with PCP outpatient for further evaluation and pain management. Minutes to complete discharge: 25 Discharge Summary Problems reviewed: Yes Reason For Visit: SMALL BOWEL OBSTRUCTION Current Active Problems Coronary artery calcification (Acute) Diastolic dysfunction without heart failure (Acute) SBO (small bowel obstruction) (Acute) Cachexia (Chronic) Condition: Stable - Instructions Diet, Activity, Other Instructions: You came in for shortness of breath and for a small bowel obstruction. We treated you with IV steroids and medications to help open up your airways. We imaged your abdomen and saw that you had a bowel obstruction. We placed and NGT and decompressed your abdomen. We reimaged your abdomen and saw improvement. You were able to pass both gas and stool. You tolerated food by mouth. You were seen by an Flower Grower, Python Web Developer and general surgeon while you were here. We tested your oxygen saturation while you were walking and you went to 94%. We have started you on a steroid taper. Please take 50 mg for 2 days STARTING Today at 8PM 01/07/2020 Take 50mg ONCE 01/08/2020 - 01/09/2020 Take 40mg ONCE per day 01/10/2020 - 01/11/2020 Take 30mg ONCE per day 01/12/2020 - 01/13/2020 Take 20mg ONCE per day 01/14/2020 - 01/15/2020 Take 10mg ONCE per day. Please continue your home medications as prescribed. Please follow up with your Flower Grower Dr. Martinez within 1 week for outpatient Pulmonary Rehab and special lung testing. Please follow up with your PCP within 1 week. Please return to the ED if you are having worsening shortness of breath, fevers, chills, nausea, vomiting, constipation or any concerning symptoms. Referrals: Bao Martinez MD [Staff Physician] - 1 Week Zohaib Barrera MD [Primary Care Provider] - 1 Week Disposition: HOME - Home Medications Comprehensive Discharge Medication List: Ambulatory Orders Ipratropium/Albuterol Sulfate [Combivent Respimat 20-100 Mcg] 4 gm IH BID 10/13/17 Fluticasone/Salmeterol [Advair 250-50 Diskus] 1 each IH BID 06/15/19 Gabapentin [Neurontin] 300 mg PO HS 06/15/19 traZODone HCL [Trazodone HCl] 50 mg PO HS PRN 06/15/19 Docusate Sodium [Colace -] 100 mg PO BID #60 capsule 06/26/19 Polyethylene Glycol 3350 [Miralax 119 gm Btl -] 17 gm PO DAILY #1 bottle 06/27/19 Doxepin HCl 75 mg PO DAILY 06/30/19 Mirtazapine 30 mg PO DAILY 06/30/19 Oxycodone HCl [Oxycodone HCl ER] 10 mg PO BID 01/01/20 Prednisone See Taper PO DAILY #30 tablet 01/06/20 This patient is new to me today: No Emergency Visit: Yes ED Registration Date: 12/30/19 Care time: The patient presented to the Emergency Department on the above date and was hospitalized for further evaluation of their emergent condition. Critical Care patient: No - Discharge Referral Referred to [facility] Med P.C[facility] No ATTENDING PHYSICIAN STATEMENT I saw and evaluated the patient. I reviewed the resident's note and discussed the case with the resident. I agree with the resident's findings and plan as documented. SUBJECTIVE: OBJECTIVE: ASSESSMENT AND PLAN:
[2020-01-07] MEDS: methylPREDNISolone NA SUCC 40 MG/1 ML VIAL IVPUSH SCH (01:46)
[2020-01-07 05:55] VITALS: PULSE 60
[2020-01-07] MEDS: HEPARIN NA (PORCINE) 5,000 UNITS/ML 1ML VIAL SQ SCH (06:21)
[2020-01-07] MEDS: ALBUTEROL SO4 0.083% IH SOL 2.5 MG/3 ML VIAL.NEB. NEB SCH (07:55)
[2020-01-07] MEDS: oxyCODONE HCL 10 MG SUSTAINED ACTING TABLET PO SCH (09:27)
[2020-01-07] MEDS: NICOTINE 14 MG/24 HOURS TOPICAL PATCH TD SCH (09:27)
[2020-01-07] MEDS: PANTOPRAZOLE 40 MG TABLET PO SCH (09:27)
[2020-01-07] MEDS: DOCUSATE SODIUM 100 MG CAPSULE (FP) PO SCH (09:28)
[2020-01-07] MEDS: BUDESONIDE/FORMETEROL FUMARATE 160/4.5 mcg INHALER IH SCH (09:29)
[2020-01-07] MEDS: TIOTROPIUM BROMIDE 2.5 MCG (SPIRIVA) RESPIMAT INHALER IH SCH (09:29)
[2020-01-07 11:34] VITALS: BP 116/66; TEMP 98.2
== END 2020-01-07 11:14 | disposition home or self-care (01) | DRG 191 ==
LOC: JER 19:09 → JERBED 12-30 01:15 → J7W 12-30 20:51
PROVIDERS: ADMIT Internal Medicine; ATTEND Internal Medicine
PROC: 0D9670Z Drainage of Stomach with Drainage Device, Via Natural or Artificial Opening (ICD-10-PCS; principal; 2019-12-30)
DX: J44.1 Chronic obstructive pulmonary disease with (acute) exacerbation (principal); K56.51 Intestinal adhesions [bands], with partial obstruction; R64 Cachexia; B18.2 Chronic viral hepatitis C; E87.6 Hypokalemia; I11.9 Hypertensive heart disease without heart failure; E83.42 Hypomagnesemia; M54.9 Dorsalgia, unspecified; M19.90 Unspecified osteoarthritis, unspecified site; R10.31 Right lower quadrant pain; D64.9 Anemia, unspecified; E78.00 Pure hypercholesterolemia, unspecified; F17.210 Nicotine dependence, cigarettes, uncomplicated; I25.119 Atherosclerotic heart disease of native coronary artery with unspecified angina pectoris; Z99.81 Dependence on supplemental oxygen
CPT/HCPCS: 36415; 71045-TC-FY; 74019-TC-FY; 74177-TC; 80048; 80053; 81003; 82272; 82962; 83010; 83605; 83690; 83735; 84100; 84443; 85025; 85027; 85045; 85610; 85730; 86850; 86900; 86901; 93005; 93010; 94640; 94761; 97116-GP; 97161-GP; 99285-25; J0131; J1644; U0003

== ENCOUNTER 2020-01-20 13:35 | Inpatient (IN) | payer MEDICARE, OTHER ==
[2020-01-20] MEDS ORDERED: ACETAMINOPHEN 1000 MG/100 ML VIAL (NON FORMULARY) IVPB ONE (14:10)
[2020-01-20] MEDS ORDERED: ONDANSETRON 4 MG/2 ML VIAL IVPUSH ONE ×2 (14:10→20:15)
[2020-01-20] MEDS ORDERED: LACTATED RINGERS SOLUTION 1000 ML INFUS.BAG IV ONE ×2 (14:10→20:23)
--- NOTE | 2020-01-20 14:13 | PDOC ---
History of Present Illness - General Chief Complaint: Pain, Acute Stated Complaint: ABDOMINAL PAIN Time Seen by Provider: 01/20/20 14:12 - History of Present Illness Initial Comments: 01/20/20 14:16 69yo M PMH COPD, s/p appendectomy, hepatitis C, recurrent SBO (s/p NHI 10/15/17) presenting with abdominal pain that began last night with nausea and vomiting, Pt has had multiple episodes of non-bloody bilious vomiting since last night. symptoms have been accompanied by diffuse abdominal pain, which is similar to his previous episodes of SBO in the past. PMHx: as noted above ROS: as noted Allergies: NKDA ROS: GENERAL/CONSTITUTIONAL: No fever or chills. No weakness. HEAD, EYES, EARS, NOSE AND THROAT: No change in vision. No ear pain or discharge. No sore throat. CARDIOVASCULAR: No chest pain or shortness of breath RESPIRATORY: No cough, wheezing, or hemoptysis. GASTROINTESTINAL: No nausea, vomiting, diarrhea or constipation. GENITOURINARY: No dysuria, frequency, or change in urination. MUSCULOSKELETAL: No joint or muscle swelling or pain. No neck or back pain. SKIN: No rash NEUROLOGIC: No headache, vertigo, loss of consciousness, or change in strength/sensation. ENDOCRINE: No increased thirst. No abnormal weight change HEMATOLOGIC/LYMPHATIC: No anemia, easy bleeding, or history of blood clots. ALLERGIC/IMMUNOLOGIC: No hives or skin allergy. PE: GENERAL: Awake, alert, and fully oriented, pt uncomfortable and vomiting HEAD: No signs of trauma, normocephalic, atraumatic EYES: PERRLA, EOMI, sclera anicteric, conjunctiva clear ENT: Auricles normal inspection, hearing grossly normal, nares patent, orop harynx clear without exudates. Moist mucosa NECK: Normal ROM, supple, no lymphadenopathy, JVD, or masses LUNGS: No distress, speaks full sentences, clear to auscultation bilaterally HEART: Regular rate and rhythm, normal S1 and S2, no murmurs, rubs or gallops, peripheral pulses normal and equal bilaterally. ABDOMEN: diffusely tender with guarding in all quadrants. EXTREMITIES : Normal inspection, Normal range of motion, no edema. No clubbing or cyanosis NEUROLOGICAL: Cranial nerves II through XII grossly intact. Normal speech, normal gait, no focal sensorimotor deficits SKIN: Warm, Dry, normal turgor, no rashes or lesions noted MDM 69yo M PMH COPD, s/p appendectomy, hepatitis C, recurrent SBO (s/p NHI 10/15/17) presenting with abdominal pain that began last night DDx including but not limited to: sbo, diverticulitis, mesenteric ischemia, colitis. appendicitis Workup: labs, ct abdomen and pelvis with IV and po contrast. ekg, fluids. TX: zofran, tylenol,morphine IV fluids - EKG: sinus tachycardia, HR 104bpm, VT 130 ms, QRS 64 ms, QTc 415 ms. t wave inversion in V2. ED course pt still in pain after tylenol will give morphine. ct shows sbo pt npo pt declined ngt because it is uncomfortable and till we hear from surgery spoke with , no additional recommendations at this time pt admitted for medical management and will be evaluated by surgery meds: Re-assessment: 01/22/20 22:27 Past History - Medical History Allergies/Adverse Reactions: Allergies Allergy/AdvReac Type Severity Reaction Status Date / Time No Known Allergies Allergy Verified 12/29/19 19:13 Home Medications: Ambulatory Orders Ipratropium/Albuterol Sulfate [Combivent Respimat 20-100 Mcg] 4 gm IH BID 10/13/17 Fluticasone/Salmeterol [Advair 250-50 Diskus] 1 each IH BID 06/15/19 Gabapentin [Neurontin] 300 mg PO HS 06/15/19 traZODone HCL [Trazodone HCl] 50 mg PO HS PRN 06/15/19 Doxepin HCl 75 mg PO DAILY 06/30/19 Mirtazapine 30 mg PO DAILY 06/30/19 Anemia: Yes (borderline) Asthma: Yes Cancer: No Cardiac Disorders: No CVA: No COPD: Yes CHF: No Dementia: No Diabetes: No GI Disorders: Yes (SBO) Disorders: No HTN: No Hypercholesterolemia: No Liver Disease: Yes (HEPATITIS C) Seizures: No Thyroid Disease: No - Surgical History Abdominal Surgery: Yes (EXP.LAP FOR SBO; RESECTION) Appendectomy: Yes Cardiac Surgery: No Cholecystectomy: No Lung Surgery: No Neurologic Surgery: No Orthopedic Surgery: Yes (sinus surgery about 40yrs ago) - Immunization History Immunization Up to Date: Yes - Psycho-Social/Smoking History Smoking Status: Yes Smoking History: Unknown if ever smoked Have you smoked in the past 12 months: No Number of Cigarettes Smoked Daily: 4 If you are a former smoker, when did you quit?: 1 yr ago 'Breaking Loose' booklet given: 11/02/16 *Physical Exam - Vital Signs Last Vital Signs Temp Pulse Resp BP Pulse Ox 98 F 81 20 117/80 98 01/20/20 13:41 01/20/20 13:41 01/20/20 13:41 01/20/20 13:41 01/20/20 13:41 ED Treatment Course - LABORATORY CBC & Chemistry Diagram: 01/22/20 07:46 01/22/20 07:46 Discharge - Discharge Information Problems reviewed: Yes Clinical Impression/Diagnosis: Small bowel obstruction - Follow up/Referral - Patient Discharge Instructions - Post Discharge Activity
[2020-01-20] MEDS ORDERED: ACETAMINOPHEN INJECTION 100 ML IVPB ONE (15:00)
[2020-01-20 15:15] LABS: BASO % 0.5 % (0-2.0); EOS % 0.3 % (0-4.5); HEMATOCRIT 44.9 % (35.4-49); HEMOGLOBIN 14.3 GM/dL (11.7-16.9); LYMPH % 13.3 % (8-40); MCH 26.9 pg (25.7-33.7); MCHC 31.8 g/dl (32.0-35.9); MEAN CELL VOLUME 84.5 fl (80-96); MEAN PLT VOLUME 8.4 fl (7.5-11.1); MONO % 6.5 % (3.8-10.2); NEUT % 79.4 % (42.8-82.8); PLATELET COUNT 320 K/MM3 (134-434); RBC 5.31 M/mm3 (4.00-5.60); RDW 17.5 % (11.9-15.9); WHITE BLOOD COUNT 13.1 K/mm3 (4.0-10.0)
[2020-01-20 15:26] LABS: INR 1.06 (0.83-1.09); PROTHROMBIN TIME (PATIENT) 12.5 SEC (9.7-13.0)
[2020-01-20 15:29] LABS: ACTIVATED PTT 27.6 SECONDS (25.2-36.5)
[2020-01-20 15:52] LABS: ALBUMIN 4.2 g/dl (3.4-5.0); ALK PHOS 52 U/L (45-117); ANION GAP 7 MMOL/L (8-16); BILIRUBIN,TOTAL 0.6 mg/dL (0.2-1); BLOOD UREA NITROGEN 23.5 mg/dL (7-18); CHLORIDE 103 mmol/L (98-107); CO2 30 mmol/L (21-32); CREATININE 1.1 mg/dL (0.55-1.3); GLUCOSE,RANDOM 116 mg/dL (74-106); MAGNESIUM 2.3 mg/dL (1.8-2.4); POTASSIUM 4.7 mmol/L (3.5-5.1); SGOT/AST 14 U/L (15-37); SGPT/ALT 19 U/L (13-61); SODIUM 140 mmol/L (136-145); TOT PROT 8.5 g/dl (6.4-8.2)
[2020-01-20 15:53] LABS: CALCIUM 10.2 mg/dL (8.5-10.1); LIPASE 66 U/L (73-393)
[2020-01-20] MEDS ORDERED: morphine CARPU-JECT 2 MG/1 ML DISP.SYRIN IVPUSH ONE (16:23)
--- OUTSIDE RECORDS SUMMARY | 2020-01-20 16:41 | XMS ---
:1950 Author Organization [facility] Care Team Providers Name Role Phone Triplett, DR Emre CORADO Unavailable Unavailable Triplett, DR Emre CORADO Unavailable Unavailable Triplett, DR Emre CORADO Unavailable Unavailable Triplett, DR Emre CORADO Unavailable Unavailable Triplett, DR Emre CORADO Unavailable Unavailable Triplett, DR Emre CORADO Unavailable Unavailable Triplett, DR Emre CORADO Unavailable Unavailable Triplett, DR Emre CORADO Unavailable Unavailable Triplett, DR Emre CORADO Unavailable Unavailable Triplett, DR Emre CORADO Unavailable Unavailable Triplett, DR Emre CORADO Unavailable Unavailable Triplett, DR Emre CORADO Unavailable Unavailable Triplett, DR Emre CORADO Unavailable Unavailable Triplett, DR Emre CORADO Unavailable Unavailable Triplett, DR Emre CORADO Unavailable Unavailable Triplett, DR Emre CORADO Unavailable Unavailable Triplett, DR mEre CORADO Unavailable Unavailable Triplett, DR Emre CORADO Unavailable Unavailable Triplett, DR Emre CORADO Unavailable Unavailable Re-disclosure Warning The records that you are about to access may contain information from federally- assisted alcohol or drug abuse programs. If such information is present, then the following federally mandated warning applies: This information has been disclosed to you from records protected by federal confidentiality rules (42 CFR part 2). The federal rules prohibit you from making any further disclosure of this information unless further disclosure is expressly permitted by the written consent of the person to whom it pertains or as otherwise permitted by 42 CFR part 2. A general authorization for the release of medical or other information is NOT sufficient for this purpose. The Federal rules restrict any use of the information to criminally investigate or prosecute any alcohol or drug abuse patient.The records that you are about to access may contain highly sensitive health information, the redisclosure of which is protected by Article 27-F of the [facility] Public Health law. If you continue you may haveaccess to information: Regarding HIV / AIDS; Provided by facilities licensed or operated by the [facility] Office of Mental Health; or Provided by the [facility] Office for People With Developmental Disabilities. If such information is present, then the following [facility] mandated warning applies: This information has been disclosed to you from confidential records which are protected by state law. State law prohibits you from making any further disclosure of this information without the specific written consent of the person to whom it pertains, or as otherwise permitted by law. Any unauthorized further disclosure in violation of state law may result in a fine or prison sentence or both. A general authorization for the release of medical or other information is NOT sufficient authorization for further disclosure. Allergies and Adverse Reactions Type Description Substance Reaction Status Data Source(s ) Drug allergy No Known No Known NO KNOWN Rona Sewell Allergies Allergies [facility] No Known No Known No Known eCW3 ([place]) No Known No Known No Known eCW3 ([place] [facility]erg[facility]) No Information No Information No Information eC W2 ([facility]) Encounters Encounter Providers Location Date Indications Data Source(s ) Outpatient [facility] 12/13/2018 eCW3 ([facility] 12:00:00 AM [facility] - [facility]) 12/13/2018 12:00:00 AM EDT Outpatient [facility] 09/16/2018 eCW3 ([facility] A[facility] 12:00:00 AM [facility] - [facility]) 09/16/2018 12:00:00 AM EDT Inpatient Attender: 06/13/2018 CERVICAL Rona Triplett 10:30:00 AM MYELOPATHY [facility] MDAdmitter: DR BA Triplett MD 06/19/2018 04:02:00 PM EST CERVICAL MYELOPATHY [facility] 05/30/2018 12:00:00 eCW2 ([facility] AM EST Health Care ) [facility] 04/19/2018 12:00:00 eCW2 ([facility] AM EST Health Care ) [facility] 04/01/2018 12:00:00 eCW2 ([facility] AM EST Health Care ) [facility] 03/15/2018 12:00:00 eCW2 ([facility] AM EST Health Care ) [facility] 03/14/2018 12:00:00 eCW2 ([facility] AM EST Health Care ) [facility] 02/22/2018 12:00:00 eCW2 ([facility] AM EDT Health Care ) [facility] 02/19/2018 12:00:00 eCW2 ([facility] AM EDT Health Care ) [facility] 02/12/2018 12:00:00 eCW2 ([facility] AM EDT Health Care ) [facility] 01/24/2018 12:00:00 eCW2 ([facility] AM EDT Health Care ) [facility] 01/24/2018 12:00:00 eCW2 ([facility] AM EDT Health Care ) [facility] 01/24/2018 12:00:00 eCW2 ([facility] AM EDT Health Care ) [facility] 01/16/2018 12:00:00 eCW2 ([facility] AM EDT Health Care ) [facility] 01/16/2018 12:00:00 eCW2 ([facility] AM EDT Health Care ) [facility] 11/22/2017 12:00:00 [facility] 11/15/2017 12:00:00 [facility] 10/11/2017 12:00:00 eCW2 ([facility] AM EDT Health Care ) [facility] 09/20/2017 12:00:00 eCW2 ([facility] AM EDT Health Care ) [facility] 06/20/2017 12:00:00 eCW2 ([facility] AM EST Health Care ) [facility] 06/05/2017 12:00:00 eCW2 ([facility] AM EST Health Care ) [facility] 04/05/2017 12:00:00 eCW2 ([facility] AM EST Health Care ) [facility] 03/27/2017 12:00:00 eCW2 ([facility] AM EST Health Care ) [facility] 01/26/2017 12:00:00 eCW2 ([facility] AM EDT Health Care ) [facility] 01/05/2017 12:00:00 eCW2 ([facility] AM EDT Health Care ) [facility] 01/05/2017 12:00:00 eCW2 ([facility] AM EDT Health Care ) [facility] 01/02/2017 12:00:00 eCW2 ([facility] AM EDT Health Care ) [facility] 12/22/2016 12:00:00 eCW2 ([facility] AM EDT Health Care ) [facility] 12/12/2016 12:00: 00 eCW2 ([facility] AM EDT Health Care ) [facility] 12/08/2016 12:00:00 eCW2 ([facility] AM EDT Health Care ) [facility] 12/01/2016 12:00:00 eCW2 ([facility] AM EDT Health Care ) [facility] 11/22/2016 12:00:00 eCW2 ([facility] AM EDT Health Care ) [facility] 11/16/2016 12:00:00 eCW2 ([facility] AM EDT Health Care ) [facility] 11/14/2016 12:00:00 eCW2 ([facility] AM EDT Health Care ) [facility] 11/14/2016 12:00:00 eCW2 ([facility] AM EDT Health Care ) [facility] 11/14/2016 12:00:00 eCW2 ([facility] AM EDT Health Care ) [facility] 11/10/2016 12:00:00 eCW2 ([facility] AM EDT Health Care ) [facility] 10/05/2016 12:00:00 eCW2 ([facility] AM EDT Health Care ) [facility] 10/05/2016 12:00:00 eCW2 ([facility] AM EDT Health Care ) [facility] 09/29/2016 12:00:00 eCW2 ([facility] AM EDT Health Care ) [facility] 09/28/2016 12:00:00 [facility]CW2 [facility] 09/21/2016 12:00:00 eCW2 [facility] 09/21/2016 12:00:00 eCW2 ([facility] AM EDT Health Care ) [facility] 07/26/2016 12:00:00 eCW2 ([facility] AM EDT Health Care ) [facility] 07/03/2016 12:00:00 eCW2 ([facility] AM EST Health Care ) [facility] 06/28/2016 12:00:00 eCW2 ([facility] AM EST Health Care ) [facility] 03/01/2016 12:00:00 eCW2 ([facility] AM EDT Health Care ) [facility] 02/21/2016 12:00:00 eCW2 ([facility] AM EDT Health Care ) [facility] 12/29/2015 12:00:00 eCW2 ([facility] AM EDT Health Care ) [facility] 08/31/2015 12:00:00 eCW2 ([facility] AM EDT Health Care ) [facility] 08/10/2015 12:00:00 eCW2 ([facility] AM EDT Health Care ) [facility] 07/29/2015 12:00:00 eCW2 ([facility] AM EDT Health Care ) [facility] 07/16/2015 12:00:00 eCW2 ([facility] AM EST Health Care ) [facility] 07/09/2015 12:00:00 eCW2 ([facility] AM EST Health Care ) [facility] 07/08/2015 12:00:00 eCW2 ([facility] AM EST Health Care ) [facility] 06/09/2015 12:00:00 eCW2 ([facility] AM EST Health Care ) [facility] 03/08/2015 12:00:00 eCW2 ([facility] AM EST Health Care ) [facility] 03/05/2015 12:00: 00 eCW2 ([facility] AM EDT Health Care ) [facility] 02/19/2015 12:00:00 eCW2 ([facility] AM EDT Health Care ) [facility] 02/12/2015 12:00:00 eCW2 ([facility] AM EDT Health Care ) [facility] 11/27/2014 12:00:00 eCW2 ([facility] AM EDT Health Care ) [facility] 10/02/2014 12:00:00 eCW2 ([facility] AM EDT Health Care ) [facility] 09/24/2014 12:00:00 eCW2 ([facility] AM EDT Health Care ) [facility] 09/10/2014 12:00:00 eCW2 ([facility] AM EDT Health Care ) [facility] 08/27/2014 12:00:00 eCW2 ([facility] AM EDT Health Care ) [facility] 08/24/2014 12:00:00 eCW2 ([facility] AM EDT Health Care ) [facility] 08/21/2014 12:00:00 eCW2 ([facility] AM EDT Health Care ) [facility] 08/19/2014 12:00:00 eCW2 ([facility] AM EDT Health Care ) [facility] 07/30/2014 12:00:00 eCW2 ([facility] AM EDT Health Care ) [facility] 07/24/2014 12:00:00 eCW2 ([facility] AM EDT Health Care ) [facility] 07/23/2014 12:00:00 eCW2 ([facility] AM EDT Health Care ) [facility] 07/16/2014 12:00:00 eCW2 ([facility] AM EDT Health Care ) [facility] 03/25/2014 12:00:00 eCW2 ([facility] AM EST Health Care ) [facility] 02/24/2014 12:00:00 eCW2 ([facility] AM EDT Health Care ) [facility] 02/04/2014 12:00:00 eCW2 ([facility] AM EDT Health Care ) [facility] 01/16/2014 12:00:00 eCW2 ([facility] AM EDT Health Care ) [facility] 12/09/2013 12:00:00 eCW2 ([facility] AM EDT Health Care ) [facility] 10/28/2013 12:00:00 eCW2 ([facility] AM EDT Health Care ) [facility] 10/28/2013 12:00:00 eCW2 ([facility] AM EDT Health Care ) [facility] 09/05/2013 12:00:00 eCW2 ([facility] AM EDT Health Care ) [facility] 08/21/2013 12:00:00 eCW2 ([facility] AM EDT Health Care ) [facility] 08/05/2013 12:00:00 eCW2 ([facility] AM EDT Health Care ) [facility] 07/11/2013 12:00:00 eCW2 ([facility] AM EST Health Care ) [facility] 06/17/2013 12:00:00 eCW2 ([facility] AM EST Health Care ) [facility] 06/03/2013 12:00:00 eCW2 ([facility] AM EST Health Care ) [facility] 05/29/2013 12:00:00 eCW2 ([facility] AM EST Health Care ) [facility] 04/10/2013 12:00:00 eCW2 ([facility] AM EST Health Care ) [facility] 03/13/2013 12:00:00 eCW2 ([facility] AM EST Health Care ) [facility] 12/17/2012 12:00:00 eCW2 ([facility] AM EDT Health Care ) [facility] 12/17/2012 12:00:00 eCW2 ([facility] AM EDT Health Care ) [facility] 12/17/2012 12:00:00 eCW2 ([facility] AM EDT Health Care ) [facility] 12/02/2012 12:00:00 eCW2 ([facility] 12:00:00 eCW2 ([facility] AM EDT Health Care ) [facility] 09/06/2012 12:00:00 eCW2 ([facility] AM EDT Health Care ) [facility] 07/10/2012 12:00:00 eCW2 ([facility] AM EST Health Care ) [facility] 07/05/2012 12:00:00 eCW2 ([facility] AM EST Health Care ) [facility] 06/20/2012 12:00:00 eCW2 ([facility] AM EST Health Care ) [facility] 06/07/2012 12:00:00 eCW2 ([facility] AM EST Health Care ) [facility] 06/05/2012 12:00:00 eCW2 ([facility] AM EST Health Care ) [facility] 05/09/2012 12:00:00 eCW2 ([facility] AM EST Health Care ) [facility] 04/02/2012 12:00:00 eCW2 ([facility] AM EST Health Care ) [facility] 01/15/2012 12:00:00 eCW2 ([facility] AM EDT Health Care ) [facility] 01/04/2012 12:00:00 eCW2 ([facility] AM EDT Health Care ) [facility] 01/01/2012 12:00:00 eCW2 ([facility] AM EDT Health Care ) [facility] 12/28/2011 12:00:00 eCW2 ([facility] AM EDT Health Care ) [facility] 12/27/2011 12:00:00 eCW2 ([facility] AM EDT Health Care ) [facility] 12/14/2011 12:00:00 [facility] 12/14/2011 12:00:00 eCW2 ([facility] AM EDT Health Care ) [facility] 12/12/2011 12:00:00 eCW2 ([facility] AM EDT Health Care ) [facility] 12/06/2011 12:00:00 eCW2 ([facility] AM EDT Health Care ) [facility] 12/06/2011 12:00:00 eCW2 ([facility] AM EDT Health Care ) [facility] 11/13/2011 12:00:00 eCW2 ([facility] AM EDT Health Care ) [facility] 10/16/2011 12:00:00 eCW2 ([facility] AM EDT Health Care ) [facility] 09/20/2011 12:00:00 eCW2 ([facility] AM EDT Health Care ) [facility] 09/15/2011 12:00:00 eCW2 ([facility] AM EDT Health Care ) [facility] 06/02/2011 12:00:00 eCW2 ([facility] AM EST Health Care ) [facility] 05/03/2011 12:00:00 eCW2 ([facility] AM EST Health Care ) [facility] 04/26/2011 12:00:00 eCW2 ([facility] AM EST Health Care ) [facility] 03/24/2011 12:00:00 eCW2 ([facility] AM EST Health Care ) [facility] 12/30/2010 12:00:00 eCW2 ([facility] AM EDT Health Care ) [facility] 12/28/2010 12:00:00 eCW2 ([facility] AM EDT Health Care ) [facility] 12/28/2010 12:00:00 eCW2 ([facility] AM EDT Health Care ) [facility] 12/22/2010 12:00:00 eCW2 ([facility] AM EDT Health Care ) [facility] 12/21/2010 12:00:00 eCW2 ([facility] AM EDT Health Care ) [facility] 11/29/2010 12:00:00 eCW2 ([facility] AM EDT Health Care ) [facility] 11/22/2010 12:00:00 eCW2 ([facility] AM EDT Health Care ) [facility] 11/18/2010 12:00:00 eCW2 ([facility] AM EDT Health Care ) [facility] 11/18/2010 12:00:00 eCW2 ([facility] AM EDT Health Care ) [facility] 11/17/2010 12:00:00 eCW2 ([facility] AM EDT Health Care ) [facility] 07/26/2010 12:00:00 eCW2 ([facility] AM EDT Health Care ) [facility] 07/15/2010 12:00:00 eCW2 ([facility] AM EST Health Care ) [facility] 04/25/2010 12:00:00 eCW2 ([facility] ) [facility] 01/25/2010 12:00:00 eCW2 ([facility] ) [facility] 01/18/2010 12:00:00 eCW2 ([facility] ) [facility] 12/29/2009 12:00:00 eCW2 ([facility] ) [facility] 07/19/2009 12:00:00 eCW2 ([facility] ) [facility] 05/21/2009 12:00:00 eCW2 ([facility] ) [facility] 03/05/2009 12:00:00 eCW2 ([facility] ) [facility] 01/26/2009 12:00:00 eCW2 ([facility] ) Immunizations Vaccine Date Status Description Data Source(s) No Known Immunizations completed eCW2 ([facility]) Medications Medication Brand Start Product Dose Route Administrative Pharmacy [facility] Indications Reaction Description Data Name Date Form Instructions Instructions Source(s) 28 ACTUAT Spiriv 10/01/ 2.0 active Spiriva e CW3 tiotropium a 2020 {puff Respimat 2.5 ([place] 0.0025 Respim 12:00: s} MCG/ACT [facility] MG/ACTUAT at 2.5 00 AM Health Metered MCG/AC EDT Care) Dose T Inhaler [Spiriva] Spiriva Respimat 2.5 MCG/ACT 24 HR Nicoti 07/29/ 1.0 active Nicotine eCW3 Nicotine ne 2019 {patc Step 3 7 ([place] 0.292 MG/HR Step 3 12:00: h_to_ MG/24HR [facility] Transdermal 7 00 AM skin} Health Patch MG/24H EDT Care) Nicotine R Step 3 7 MG/24HR 120 ACTUAT Symbic 07/23/ 2.0 active Symbicor t eCW3 Budesonide ort 2019 {puff 160-4.5 ([place] 0.16 160-4. 12:00: s} MCG/ACT [facility] MG/ACTUAT / 5 00 AM Health formoterol MCG/AC EDT Care) fumarate T 0.0045 MG/ACTUAT Metered Dose Inhaler [Symbicort] Symbicort 160-4.5 MCG/ACT 120 ACTUAT Advair 06/05/ 2.0 active Advair H FA eCW3 Fluticasone HFA 2019 {puff 230-21 ([place] propionate 230-21 12:00: s} MCG/ACT Ri bailee 0.23 MCG/AC 00 AM Health MG/ACTUAT / T EST Care) salmeterol 0.021 MG/ACTUAT Metered Dose Inhaler [Advair] Advair HFA 230-21 MCG/ACT Diclofenac Diclof 04/10/ active Diclofen ac eCW3 Sodium 0.01 2018 Sodium 1 % ([place] MG/MG Sodium 12:00: [facility] Topical Gel 1 % 00 AM Health Diclofenac EST Care) Sodium 1 % Bacitracin Cortis .0 active Cortispo rin eCW3 0.4 UNT/MG porin 2018 {appl 1 % ([place] / 1 % 12:00: icati [facility] Hydrocortis 00 AM on} Health one 0.01 EST Care) MG/MG / Neomycin 0.0035 MG/MG / Polymyxin B 5 UNT/MG Topical Ointment [Cortispori n Ointment] Cortisporin 1 % Bacitracin Cortis 1.0 active Cortispo rin eCW3 0.4 UNT/MG porin 2018 {appl 1 % ([place] / 1 % 12:00: icati [facility] Hydrocortis 00 AM on} Health one 0.01 EST Care) MG/MG / Neomycin 0.0035 MG/MG / Polymyxin B 5 UNT/MG Topical Ointment [Cortispori n Ointment] Cortisporin 1 % Diclofenac Diclof 04/10/ active Diclofen ac eCW3 Sodium 0.01 enac 2019 Sodium 1 % ([place] MG/MG Sodium 12:00: [facility] Topical Gel 1 % 00 AM Health Diclofenac EST Care) Sodium 1 % 2 ML Ketoro 2.0 suspend Ketorolac eCW 3 Ketorolac lac 2019 {ml} ed Tromethamine ([place] Tromethamin Tromet 12:00: 60 MG/2ML [facility] e 30 MG/ML hamine 00 AM Health Cartridge 60 EDT Care) Ketorolac MG/2ML Tromethamin e 60 MG/2ML OXYGEN UNK 12/13/ active OXYGEN eCW3 2018 ([place] 12:00: [facility] 00 AM Health EDT Care) 2 ML Ketoro 2.0 suspend Ketorolac eCW 3 Ketorolac lac 2018 {ml} ed Tromethamine ([place] Tromethamin Tromet 12:00: 60 MG/2ML [place] e 30 MG/ML hamine 00 AM Health Cartridge 60 EDT Care) Ketorolac MG/2ML Tromethamin e 60 MG/2ML OXYGEN UNK 12/13/ active OXYGEN eCW3 2018 ([place] 12:00: [facility] 00 AM Health EDT Care) Solu-Medrol Solu-M 09/16/ suspend Solu-M edrol eCW3 125 MG edrol 2019 ed 125 MG ([place] 125 MG 12:00: [facility] 00 AM Health EDT Care) Cyproheptad Cyproh 1.0 active Cyprohe ptadi eCW3 ine eptadi 2018 {tabl ne HCl 4 MG ([place] hydrochlori ne HCl 12:00: et} [facility] r de 4 MG 4 MG 00 AM Health Oral Tablet EDT Care) Cyproheptad ine HCl 4 MG Walker - Walker 09/16/ active Walker - e CW3 - 2018 ([place] 12:00: [facility] 00 AM Health EDT Care) Cyproheptad Cyproh 1.0 active Cyprohe ptadi eCW3 ine eptadi 2018 {tabl ne HCl 4 MG ([place] hydrochlori ne HCl 12:00: et} R[place] r de 4 MG 4 MG 00 AM Health Oral Tablet EDT Care) Cyproheptad ine HCl 4 MG Walker - Walker 09/16/ active Walker - e CW3 - 2019 ([place] 12:00: [place] 00 AM Health EDT Care) Solu-Medrol Solu-M 09/16/ suspend Solu-M edrol eCW3 125 MG edrol 2019 ed 125 MG ([place] 125 MG 12:00: [place] 00 AM Health EDT Care) Methylpredn 06/19/ 24 mg complet Daily B efore White isolone 2019 ed Breakfast [place] (Medrol 12:00: Hospital Dose-Tristan 00 AM 4MG Tab*) 4 EST Mg Tab.ds.pk Hydromorpho Hydrom 06/19/ TABLET complet Ever y 4 White ne orphon 2019 ed Hours as [place] Hydrochlori e Hcl 12:00: needed for Hospital de 2 MG ([place] 00 AM Moderate Oral Tablet did EST Pain (Pain [Dilaudid] 2MG Scale 4-7) Hydromorpho Tab*) ne Hcl 2 Mg (Dilaudid Tablet 2MG Tab*) 2 Mg Tablet Acetaminoph Acetam 06/19/ TABLET 650 complet Ever y 4 White en 325 MG inophe 2019 mg ed Hours as Plai ns Oral Tablet n 12:00: needed for Hospital [Mapap] (Mapap 00 AM For Temp. Acetaminoph ) 325 EST Greater Than en (Mapap) Mg 100.4 F 325 Mg Tablet Tablet Zolpidem Zolpid 06/19/ TABLET 5 mg complet At Bedt siena White tartrate 5 em 2018 ed as needed Plai ns MG Oral Tartra 12:00: for For Hospi wai Tablet te 00 AM Sleep Zolpidem (Zolpi EST Tartrate dem (Zolpidem Tartra Tartrate te 5MG 5MG Tablet Tablet*) 5 *) 5 Mg Tablet Mg Tablet Acetaminoph Acetam 06/19/ TABLET 650 complet Ever y 4 White en 325 MG inophe 2019 mg ed Hours as Plai ns Oral Tablet n 12:00: needed for Hospital [Mapap] (Mapap 00 AM For Temp. Acetaminoph ) 325 EST Greater Than en (Mapap) Mg 100.4 F 325 Mg Tablet Tablet Hydromorpho Hydrom 06/19/ TABLET complet Ever y 4 White ne orphon 2019 ed Hours as [place] Hydrochlori e Hcl 12:00: needed for Hospital de 2 MG ([place] 00 AM Moderate Oral Tablet did EST Pain (Pain [Dilaudid] 2MG Scale 4-7) Hydromorpho Tab*) ne Hcl 2 Mg (Dilaudid Tablet 2MG Tab*) 2 Mg Tablet heparin Hepari 06/19/ UNSPECIF 5000 complet Q12h W rg sodium, n 2019 IED ed Starting At Plain s porcine Sodium 12:00: 10 Hospital 5000 UNT/ML ([place] 00 AM Injectable ne) EST Solution (Hepar Heparin in Sodium Sodium (Porcine) ) (Heparin 5,000 Sodium) Unit/M 5,000 l Vial Unit/Ml Vial Zolpidem Zolpid 06/19/ TABLET 5 mg complet At Bedt siena White tartrate 5 em 2018 ed as needed Plai ns MG Oral Tartra 12:00: for For Hospi wai Tablet te 00 AM Sleep Zolpidem (Zolpi EST Tartrate dem (Zolpidem Tartra Tartrate te 5MG 5MG Tablet Tablet*) 5 *) 5 Mg Tablet Mg Tablet Methylpredn 06/19/ 24 mg complet Daily B efore White isolone 2018 ed Breakfast [place] (Medrol 12:00: Hospital Dose-Tristan 00 AM 4MG Tab*) 4 EST Mg Tab.ds.pk heparin Hepari 06/19/ UNSPECIF 5000 complet Q12h W rg sodium, n 2019 IED ed Starting At Plain s porcine Sodium 12:00: 10 Hospital 5000 UNT/ML ([place] 00 AM Injectable ne) EST Solution (Hepar Heparin in Sodium Sodium (Porcine) ) (Heparin 5,000 Sodium) Unit/M 5,000 l Vial Unit/Ml Vial Nebulizer - Nebuli 01/26/ suspend Nebuli zer - eCW3 zer - 2017 ed ([place] 12:00: [place] 00 AM Health EDT Care) Nebulizer - Nebuli 01/26/ suspend Nebuli zer - eCW3 zer - 2018 ed ([place] 12:00: [place] 00 AM Health EDT Care) Albuterol Ipratr 01/24/ 3.0 suspend Ipratrop ium- eCW3 0.833 MG/ML opium- 2018 {ml} ed Albuterol ( [place] / [place] 12:00: 0.5-2.5 (3) [place] [facility] Ipratropium rol 00 AM MG/3ML Healt h [place] 0.5-2. EDT Care) 0.167 MG/ML 5 (3) Inhalant MG/3ML Solution Ipratropium -Albuterol 0.5-2.5 (3) MG/3ML Albuterol Ipratr 01/24/ 3.0 suspend Ipratrop ium- eCW3 0.833 MG/ML opium- 2018 {ml} ed Albuterol ( [place] / [place] 12:00: 0.5-2.5 (3) [place] Ipratropium rol 00 AM MG/3ML Healt h [place] 0.5-2. EDT Care) 0.167 MG/ML 5 (3) Inhalant MG/3ML Solution Ipratropium -Albuterol 0.5-2.5 (3) MG/3ML Azithromyci Azithr 10/11/ suspend Azithr omycin eCW3 n 250 MG omycin 2018 ed 250 MG ([place] Oral Tablet 250 MG 12:00: R[facility] 00 AM Health EDT Care) Albuterol Ipratr 10/11/ 3.0 suspend Ipratrop ium- eCW3 0.833 MG/ML opium- 2018 {ml} ed Albuterol ( [place] / [place] 12:00: 0.5-2.5 (3) R[facility] r Ipratropium rol 00 AM MG/3ML Healt h [place] 0.5-2. EDT Care) 0.167 MG/ML 5 (3) Inhalant MG/3ML Solution Ipratropium -Albuterol 0.5-2.5 (3) MG/3ML Prednisone Predni 10/11/ 1.0 suspend PredniS ONE eCW3 20 MG Oral SONE 2018 {tabl ed 20 mg ([place] Tablet 20 mg 12:00: et} [place] PredniSONE 00 AM Health 20 mg EDT Care) Prednisone Predni 1.0 suspend PredniS ONE eCW3 20 MG Oral SONE 2018 {tabl ed 20 mg ([place] Tablet 20 mg 12:00: et} [place] PredniSONE 00 AM Health 20 mg EDT Care) 2 ML Ketoro 10/11/ 2.0 suspend Ketorolac eCW 3 Ketorolac lac 2018 {ml_o ed Tromethamine ( [place] Tromethamin Tromet 12:00: ne_ti 60 MG/2M L [place] e 30 MG/ML hamine 00 AM me} Health Cartridge 60 EDT Care) Ketorolac MG/2ML Tromethamin e 60 MG/2ML 2 ML Ketoro // 2.0 suspend Ketorolac eCW 3 Ketorolac lac 2017 {ml_o ed Tromethamine ( [place] Tromethamin Tromet 12:00: ne_ti 60 MG/2M L [place] e 30 MG/ML hamine 00 AM me} Health Cartridge 60 EDT Care) Ketorolac MG/2ML Tromethamin e 60 MG/2ML Albuterol Ipratr // 3.0 suspend Ipratrop ium- eCW3 0.833 MG/ML opium- 2018 {ml} ed Albuterol ( [place] / [place] 12:00: 0.5-2.5 (3) R[facility] Ipratropium rol 00 AM MG/3ML Healt h [place] 0.5-2. EDT Care) 0.167 MG/ML 5 (3) Inhalant MG/3ML Solution Ipratropium -Albuterol 0.5-2.5 (3) MG/3ML Azithromyci Azithr 10/11/ suspend Azithr omycin eCW3 n 250 MG omycin 2018 ed 250 MG ([place] Oral Tablet 250 MG 12:00: [facility] [place] 00 AM Health EDT Care) 24 HR Nicoti 1.0 active Nicotine 21 e CW3 Nicotine ne 2016 {patc MG/24HR ([place] 0.875 MG/HR MG/24H 12:00: h_to_ Isai er Transdermal R 00 AM skin} Health Patch EST Care) Nicotine 21 MG/24HR 24 HR Nicoti 1.0 active Nicotine 21 e CW3 Nicotine ne 2016 {patc MG/24HR ([place] 0.875 MG/HR MG/24H 12:00: h_to_ Isai er Transdermal R 00 AM skin} Health Patch EST Care) Nicotine 21 MG/24HR Lac-Hydrin Lac-Hy 1.0 suspend Lac-Hyd rin eCW3 12 % drin 2016 {appl ed 12 % ([place] 12 % 12:00: icati [place] 00 AM on_to Health EST _affe Care) cted_ area} Lac-Hydrin Lac-Hy 04/05/ 1.0 suspend Lac-Hyd rin eCW3 12 % drin 2017 {appl ed 12 % ([place] 12 % 12:00: icati [place] 00 AM on_to Health EST _affe Care) cted_ area} Vitamin B Vitami 04/05/ suspend Vitamin B eCW3 Complex - n B 2016 ed Complex - ([facility] Comple 12:00: [place] x - 00 AM Health EST Care) Vitamin B Vitami 04/05/ suspend Vitamin B eCW3 Complex - n B 2016 ed Complex - ([facility] Comple 12:00: [place] x - 00 AM Health EST Care) Diclofenac Voltar 12/22/ suspend Voltare n 1 % eCW3 Sodium 0.01 en 1 % 2016 ed ([place] [facility] MG/MG 12:00: [place] Topical Gel 00 AM Health [Voltaren] EDT Care) Voltaren 1 % Diclofenac Voltar 12/22/ suspend Voltare n 1 % eCW3 Sodium 0.01 en 1 % 2016 ed ([place] MG/MG 12:00: [place] Topical Gel 00 AM Health [Voltaren] EDT Care) Voltaren 1 % Albuterol Ipratr 12/01/ 3.0 suspend Ipratrop ium- eCW3 0.833 MG/ML opium- 2016 {ml} ed Albuterol ( [place] / [place] 12:00: 0.5-2.5 (3) [facility] Ipratropium rol 00 AM MG/3ML Healt [facility] [place] 0.5-2. EDT Care) 0.167 MG/ML 5 (3) Inhalant MG/3ML Solution Ipratropium -Albuterol 0.5-2.5 (3) MG/3ML Cyclobenzap Cyclob 12/01/ 1.0 suspend Cyclob enzapr eCW3 rine enzapr 2017 {tabl ed ine HCl 10 ([place] hydrochlori ine 12:00: et_as MG [place] de 10 MG HCl 10 00 AM _need Health Oral Tablet MG EDT ed} Care) Cyclobenzap rine HCl 10 MG Nebulizer - Nebuli 12/01/ suspend Nebuli zer - eCW3 zer - 2016 ed ([place] 12:00: [place] 00 AM Health EDT Care) Acetaminoph Tyleno .0 suspend Tyleno l with eCW3 en 300 MG / l with 2017 {tabl ed Codeine #3 ([place] Codeine Codein 12:00: et_as 300-30 MG Ri bailee Phosphate e #3 00 AM _need Health 30 MG Oral 300-30 EDT ed} Care) Tablet MG [Tylenol with Codeine] Tylenol with Codeine #3 300-30 MG Albuterol Ipratr 12/01/ active Ipratropi um- eCW3 0.833 MG/ML opium- 2016 Albuterol ( [place] / [place] 12:00: 0.5-2.5 (3) [place] [facility] Ipratropium rol 00 AM MG/3ML Healt [facility] [place] 0.5-2. EDT Care) 0.167 MG/ML 5 (3) Inhalant MG/3ML Solution Ipratropium -Albuterol 0.5-2.5 (3) MG/3ML Acetaminoph Tyleno .0 suspend Tyleno l with eCW3 en 300 MG / l with 2017 {tabl ed Codeine #3 ([place] Codeine Codein 12:00: et_as 300-30 MG Ri bailee Phosphate e #3 00 AM _need Health 30 MG Oral 300-30 EDT ed} Care) Tablet MG [Tylenol with Codeine] Tylenol with Codeine #3 300-30 MG Albuterol Ipratr 12/01/ active Ipratropi um- eCW3 0.833 MG/ML opium- 2016 Albuterol ( [place] / [place] 12:00: 0.5-2.5 (3) R[place] r Ipratropium rol 00 AM MG/3ML Healt h [place] 0.5-2. EDT Care) 0.167 MG/ML 5 (3) Inhalant MG/3ML Solution Ipratropium -Albuterol 0.5-2.5 (3) MG/3ML Nebulizer - Nebuli 12/01/ suspend Nebuli zer - eCW3 zer - 2016 ed ([place] 12:00: [place] 00 AM Health EDT Care) Acetaminoph Tyleno .0 suspend Tyleno l with eCW3 en 300 MG / l with 2017 {tabl ed Codeine #3 ([place] Codeine Codein 12:00: et_as 300-30 MG Ri bailee Phosphate e #3 00 AM _need Health 30 MG Oral 300-30 EDT ed} Care) Tablet MG [Tylenol with Codeine] Tylenol with Codeine #3 300-30 MG Acetaminoph Tyleno 1.0 suspend Tyleno l with eCW3 en 300 MG / l with 2017 {tabl ed Codeine #3 ([place] Codeine Codein 12:00: et_as 300-30 MG Ri bailee Phosphate e #3 00 AM _need Health 30 MG Oral 300-30 EDT ed} Care) Tablet MG [Tylenol with Codeine] Tylenol with Codeine #3 300-30 MG Albuterol Ipratr 3.0 suspend Ipratrop ium- eCW3 0.833 MG/ML opium- 2016 {ml} ed Albuterol ( [place] / [place] 12:00: 0.5-2.5 (3) [place] Ipratropium rol 00 AM MG/3ML Healt [facility] [place] 0.5-2. EDT Care) 0.167 MG/ML 5 (3) Inhalant MG/3ML Solution Ipratropium -Albuterol 0.5-2.5 (3) MG/3ML Cyclobenzap Cyclob .0 suspend Cyclob enzapr eCW3 rine enzapr 2017 {tabl ed ine HCl 10 ([place] hydrochlori ine 12:00: et_as MG [place] de 10 MG HCl 10 00 AM _need Health Oral Tablet MG EDT ed} Care) Cyclobenzap rine HCl 10 MG Albuterol Ipratr 11/16/ suspend Ipratrop ium- eCW3 0.833 MG/ML opium- 2017 ed Albuterol ( [place] / [place] 12:00: 0.5-2.5 (3) R[facility] r Ipratropium rol 00 AM MG/3ML Healt [facility] [place] 0.5-2. EDT Care) 0.167 MG/ML 5 (3) Inhalant MG/3ML Solution Ipratropium -Albuterol 0.5-2.5 (3) MG/3ML Albuterol Ipratr 11/16/ suspend Ipratrop ium- eCW3 0.833 MG/ML opium- 2017 ed Albuterol ( [place] / [place] 12:00: 0.5-2.5 (3) R[facility] r Ipratropium rol 00 AM MG/3ML Healt [facility] [place] 0.5-2. EDT Care) 0.167 MG/ML 5 (3) Inhalant MG/3ML Solution Ipratropium -Albuterol 0.5-2.5 (3) MG/3ML 200 ACTUAT ProAir 2.0 suspend ProAir HFA eCW3 Albuterol HFA 2017 {puff ed 108 (90 ([place] 0.09 108 12:00: s_as_ Base) [place] MG/ACTUAT (90 00 AM neede MCG/ACT Healt h Metered Base) EDT d} Care) Dose MCG/AC Inhaler T [ProAir] ProAir HFA 108 (90 Base) MCG/ACT 200 ACTUAT ProAir .0 suspend ProAir HFA eCW3 Albuterol HFA 2016 {puff ed 108 (90 ([place] 0.09 108 12:00: s_as_ Base) [place] MG/ACTUAT (90 00 AM neede MCG/ACT Healt h Metered Base) EDT d} Care) Dose MCG/AC Inhaler T [ProAir] ProAir HFA 108 (90 Base) MCG/ACT OXYGEN UNK 11/14/ suspend OXYGEN eCW3 2017 ed ([place] 12:00: [place] 00 AM Health EDT Care) Mirtazapine Remero .0 active Remeron 30 eCW3 30 MG Oral n 30 2016 {tabl MG ([place] Tablet MG 12:00: et_at [place] [Remeron] 00 AM _bedt Health Remeron 30 EDT siena} Care) MG OXYGEN UNK 11/14/ suspend OXYGEN eCW3 2017 ed ([place] 12:00: [place] 00 AM Health EDT Care) Megace Oral UNK .0 active Megace Or al eCW3 40 MG/ML 2016 {ml} 40 MG/ML ([place] 12:00: [place] 00 AM Health EDT Care) Doxepin Doxepi 07/11/ 1.0 active Doxepin HCl eCW3 Hydrochlori n HCl 2017 {caps 75 MG ([facility] de 75 MG 75 MG 12:00: ule_a [place] Oral 00 AM t_bed Health Capsule EDT time} Care) Doxepin HCl 75 MG Megace Oral UNK .0 suspend Megace O ral eCW3 40 MG/ML 2017 {ml} ed 40 MG/ML ([place] 12:00: [place] 00 AM Health EDT Care) Doxepin Doxepi .0 active Doxepin HCl eCW3 Hydrochlori n HCl 2017 {caps 75 MG ([facility] de 75 MG 75 MG 12:00: ule_a [place] Oral 00 AM t_bed Health Capsule EDT time} Care) Doxepin HCl 75 MG Nebulizer - Nebuli 11/14/ suspend Nebuli zer - eCW3 zer - 2016 ed ([place] 12:00: [place] 00 AM Health EDT Care) Nebulizer - Nebuli 11/14/ suspend Nebuli zer - eCW3 zer - 2016 ed ([place] 12:00: [place] 00 AM Health EDT Care) Mirtazapine Remero .0 active Remeron 30 eCW3 30 MG Oral n 30 2016 {tabl MG ([place] Tablet MG 12:00: et_at [place] [Remeron] 00 AM _bedt Health Remeron 30 EDT siena} Care) MG Nebulizer - Nebuli 09/28/ suspend Nebuli zer - eCW3 zer - 2016 ed ([place] 12:00: [place] 00 AM Health EDT Care) Nebulizer - Nebuli 25/ suspend Nebuli zer - eCW3 zer - 2016 ed ([place] 12:00: [place] 00 AM Health EDT Care) Albuterol Ipratr 07/03/ suspend Ipratrop ium- eCW3 0.833 MG/ML opium- 2016 ed Albuterol ( [place] / [place] 12:00: 0.5-2.5 (3) [place] Ipratropium rol 00 AM mg/3ml Healt h [place] 0.5-2. EST Care) 0.167 MG/ML 5 (3) Inhalant mg/3ml Solution Ipratropium -Albuterol 0.5-2.5 (3) mg/3ml 120 ACTUAT COMBIV 2.0 suspend COMBIVE NT eCW3 Albuterol ENT 2016 {puff ed RESPIMAT ([facility] 0.1 RESPIM 12:00: } 20-100 [place] MG/ACTUAT / AT 00 AM mcg/act Heal th Ipratropium 20-100 EST Care) [place] mcg/ac 0.02 t MG/ACTUAT Metered Dose Inhaler [Combivent] COMBIVENT RESPIMAT 20-100 mcg/act 120 ACTUAT COMBIV 2.0 suspend COMBIVE NT eCW3 Albuterol ENT 2017 {puff ed RESPIMAT ([facility] 0.1 RESPIM 12:00: } 20-100 [place] MG/ACTUAT / AT 00 AM mcg/act Heal th Ipratropium 20-100 EST Care) [place] mcg/ac 0.02 t MG/ACTUAT Metered Dose Inhaler [Combivent] COMBIVENT RESPIMAT 20-100 mcg/act Albuterol Ipratr 07/03/ suspend Ipratrop ium- eCW3 0.833 MG/ML opium- 2017 ed Albuterol ( [place] / [place] 12:00: 0.5-2.5 (3) [place] Ipratropium rol 00 AM mg/3ml Healt h [place] 0.5-2. EST Care) 0.167 MG/ML 5 (3) Inhalant mg/3ml Solution Ipratropium -Albuterol 0.5-2.5 (3) mg/3ml Trazodone Trazod .0 active Trazodone eCW3 Hydrochlori one 2015 {tabl HCl 50 MG ([facility] de 50 MG HCl 50 12:00: et_at [place] Oral Tablet MG 00 AM _bedt Health Trazodone EDT ime_a Care) HCl 50 MG s_nee ded} Azelastine Azelas .0 suspend Azelast ine eCW3 hydrochlori yanique 2015 {drop ed HCl 0.05 % ( [place] de 0.5 HCl 12:00: _into [place] MG/ML 0.05 % 00 AM _affe Health Ophthalmic EDT cted_ Care) Solution eye} Azelastine HCl 0.05 % Azelastine [place] .0 suspend Azelast ine eCW3 hydrochlori yanique 2015 {drop ed HCl 0.05 % ( [place] de 0.5 HCl 12:00: _into [place] MG/ML 0.05 % 00 AM _affe Health Ophthalmic EDT cted_ Care) Solution eye} Azelastine HCl 0.05 % Trazodone Trazod .0 active Trazodone eCW3 Hydrochlori one 2015 {tabl HCl 50 MG (H [facility] de 50 MG HCl 50 12:00: et_at [place] Oral Tablet MG 00 AM _bedt Health Trazodone EDT ime_a Care) HCl 50 MG s_nee ded} Dextrometho Promet .0 suspend Promet hazine eCW3 [facility] 3 2015 {ml_a ed -DM 6.25-15 ([facility] ud[facility] MG/ML / -DM 12:00: s_nee MG/5ML [place] Promethazin 6.25-1 00 AM ded} Healt h e 5 EDT Care) Hydrochlori MG/5ML de 1.25 MG/ML Oral Solution Promethazin e-DM 6.25-15 MG/5ML Dextrometho Promet .0 suspend Promet hazine eCW3 [facility] 3 2015 {ml_a ed -DM 6.25-15 ([facility] MG/ML / -DM 12:00: s_nee MG/5ML [place] Promethazin 6.25-1 00 AM ded} Healt h e 5 EDT Care) Hydrochlori MG/5ML de 1.25 MG/ML Oral Solution Promethazin e-DM 6.25-15 MG/5ML Clobetasol Clobet .0 suspend Clobeta alessandra eCW3 Propionate asol 2015 {appl ed Propionate ([facility] 0.5 MG/ML Propio 12:00: icati 0.05 % Isai er Topical iraj 00 AM on_to Health Cream 0.05 % EST _affe Care) Clobetasol cted_ Propionate area} 0.05 % Clobetasol Clobet .0 suspend Clobeta alessandra eCW3 Propionate asol 2016 {appl ed Propionate (H ud[place] 0.5 MG/ML Propio 12:00: icati 0.05 % Isai er Topical iraj 00 AM on_to Health Cream 0.05 % EST _affe Care) Clobetasol cted_ Propionate area} 0.05 % gabapentin Gabape .0 active Gabapent in eCW3 300 MG Oral ntin 2014 {caps 300 MG ([facility] Capsule 300 MG 12:00: ule} [place] Gabapentin 00 AM Health 300 MG EDT Care) gabapentin Gabape .0 active Gabapent in eCW3 300 MG Oral ntin 2014 {caps 300 MG ([facility] Capsule 300 MG 12:00: ule} [place] Gabapentin 00 AM Health 300 MG EDT Care) Optivar UNK .0 suspend Optivar 0.05 eCW3 0.05 % 2014 {drop ed % ([place] 12:00: _into [place] 00 AM _affe Health EDT cted_ Care) eye} Optivar UNK .0 suspend Optivar 0.05 eCW3 0.05 % 2014 {drop ed % ([place] 12:00: _into [place] 00 AM _affe Health EDT cted_ Care) eye} Cyproheptad Cyproh .0 suspend Cyproh eptadi eCW3 ine eptadi 2013 {tabl ed ne HCl 4 MG ([facility] hydrochlori ne HCl 12:00: et} [place] de 4 MG 4 MG 00 AM Health Oral Tablet EST Care) Cyproheptad ine HCl 4 MG Cyproheptad Cyproh .0 suspend Cyproh eptadi eCW3 ine eptadi 2013 {tabl ed ne HCl 4 MG ([facility] hydrochlori ne HCl 12:00: et} [place] de 4 MG 4 MG 00 AM Health Oral Tablet EST Care) Cyproheptad ine HCl 4 MG Multivitami UNK 12/30/ suspend Multivit prieto eCW3 ns 2010 ed s ([place] 12:00: [place] 00 AM Health EDT Care) Multivitami UNK 12/30/ suspend Multivit prieto eCW3 ns 2010 ed s ([place] 12:00: [place] 00 AM [facility] EDT Care) Naproxen Naprox TABLET 500 complet Twice A D ay White 500 MG Oral en mg ed [place] Tablet ([facility] [Naprosyn] syn Naproxen Tablet (Naprosyn *) 500 Tablet*) Mg 500 Mg Tablet Tablet, 500 , 500 Mg Oral Mg Oral Docusate Docusa 1.0 suspend Docusate eC W3 Sodium 100 te {caps ed Sodium 100 (H udson MG Oral Sodium ule_a MG [place] Capsule 100 MG s_nee Health ded} Care) gabapentin Gabape CAPSULE 300 complet Four T imes White 300 MG Oral ntin mg ed Daily [place] Capsule (Neuro [facility] [Neurontin] ntin Gabapentin Capsul (Neurontin e*) Capsule*) 300 Mg 300 Mg Cap Cap Ensure Ensure active Ensure eCW3 Enlive - Enlive Enlive - ([facility]) Unknown complet eCW2 Medications ed ([facility]) Albuterol Ipratr 3.0 active Ipratropium - eCW3 0.833 MG/ML opium- {ml} Albuterol ( [place] / [place] 0.5-2.5 (3) [place] Ipratropium rol MG/3ML Health [place] 0.5-2. Care) 0.167 MG/ML 5 (3) Inhalant MG/3ML Solution Ipratropium -Albuterol 0.5-2.5 (3) MG/3ML 60 ACTUAT Advair 1.0 suspend Advair eCW 3 Fluticasone Diskus {puff ed Diskus (Hu dson propionate 250-50 } 250-50 [place] 0.25 MCG/DO MCG/DOSE Health MG/ACTUAT / SE Care) salmeterol 0.05 MG/ACTUAT Dry Powder Inhaler [Advair] Advair Diskus 250-50 MCG/DOSE 120 ACTUAT Ipratr AEROSOL 20 ug complet White Albuterol opium/ ed [place] 0.[facility] MG/ACTUAT / rol Ipratropium Sulfat [place] e 0.02 (Combi MG/ACTUAT vent Metered Respim Dose at Inhaler Inhal [Combivent] [place]) Ipratropium 20 /Albuterol Mcg-10 Sulfate 0 (Combivent Mcg/Ac Respimat tuatio Inhal n [place]) 20 Aer.w. Mcg-100 adap Mcg/Actuati on Aer.w.adap Acetaminoph Oxycod TABLET 1 complet Every 4 White en 325 MG / one/Ac {Caps ed Hours Plai ns Oxycodone etamin ule} Hospital Hydrochlori ophen de 5 MG ([place] Oral Tablet cet [Percocet] 5-325 Oxycodone/A Mg cetaminophe Tablet n (Percocet *) 5 5-325 Mg Mg-325 Tablet*) 5 Mg Mg-325 Mg Tablet Tablet, 1 , 1 Tab Oral Tab Oral Salmeterol 1 complet Twice A Day White Xinafoate/F ed [place] [facility] ([facility] 250/50 Diskus*) 250 Mcg-50 Mcg/Dose Blst.w.dev 60 ACTUAT Advair 1.0 suspend Advair eCW 3 Fluticasone Diskus {puff ed Diskus (Hu dson propionate 250-50 } 250-50 [place] 0.25 MCG/DO MCG/DOSE Health MG/ACTUAT / SE Care) salmeterol 0.05 MG/ACTUAT Dry Powder Inhaler [Advair] Advair Diskus 250-50 MCG/DOSE Naproxen Naprox TABLET 500 complet Twice A D ay White 500 MG Oral en mg ed [place] Tablet ([facility] [Naprosyn] syn Naproxen Tablet (Naprosyn *) 500 Tablet*) Mg 500 Mg Tablet Tablet, 500 , 500 Mg Oral Mg Oral 120 ACTUAT Ipratr AEROSOL 20 ug complet White Albuterol opium/ ed [place] 0.[facility] MG/ACTUAT / rol Ipratropium Sulfat [place] e 0.02 (Combi MG/ACTUAT vent Metered Respim Dose at Inhaler Inhal [Combivent] [place]) Ipratropium 20 /Albuterol Mcg-10 Sulfate 0 (Combivent Mcg/Ac Respimat tuatio Inhal n [place]) 20 Aer.w. Mcg-100 adap Mcg/Actuati on Aer.w.adap Albuterol Ipratr 3.0 active Ipratropium - eCW3 0.833 MG/ML opium- {ml} Albuterol ( [place] / [place] 0.5-2.5 (3) [place] Ipratropium rol MG/3ML Health [place] 0.5-2. Care) 0.167 MG/ML 5 (3) Inhalant MG/3ML Solution Ipratropium -Albuterol 0.5-2.5 (3) MG/3ML Salmeterol 1 complet Twice A Day White Xinafoate/F ed [facility] (Advair 250/50 Diskus*) 250 Mcg-50 Mcg/Dose Blst.w.dev Docusate Docusa 1.0 suspend Docusate eC W3 Sodium 100 te {caps ed Sodium 100 (H udson MG Oral Sodium ule_a MG [place] Capsule 100 MG s_nee Health ded} Care) 200 ACTUAT ProAir 2.0 suspend ProAir HF A eCW3 Albuterol HFA {puff ed 108 (90 ([place] 0.09 108 s_as_ Base) [place] MG/ACTUAT (90 neede MCG/ACT Health Metered Base) d} Care) Dose MCG/AC Inhaler T [ProAir] ProAir HFA 108 (90 Base) MCG/ACT 200 ACTUAT ProAir 1.0 active ProAir eCW 3 Albuterol RespiC {puff RespiClick ( [place] 0.09 lick _as_n 108 (90 [place] MG/ACTUAT 108 eeded Base) Health Dry Powder (90 } MCG/ACT Care) Inhaler Base) [ProAir] MCG/AC ProAir T RespiClick 108 (90 Base) MCG/ACT gabapentin Gabape CAPSULE 300 complet Four T imes White 300 MG Oral ntin mg ed Daily [place] Capsule (Neuro [facility] [Neurontin] ntin Gabapentin Capsul (Neurontin e*) Capsule*) 300 Mg 300 Mg Cap Cap 200 ACTUAT ProAir 2.0 suspend ProAir HF A eCW3 Albuterol HFA {puff ed 108 (90 ([place] 0.09 108 s_as_ Base) [place] MG/ACTUAT (90 neede MCG/ACT Health Metered Base) d} Care) Dose MCG/AC Inhaler T [ProAir] ProAir HFA 108 (90 Base) MCG/ACT Ensure Ensure active Ensure eCW3 Enlive - Enlive Enlive - ([facility]) Acetaminoph Oxycod TABLET 1 complet Every 4 White en 325 MG / one/Ac {Caps ed Hours Plai ns Oxycodone etamin ule} Hospital Hydrochlori ophen de 5 MG ([place] Oral Tablet cet [Percocet] 5-325 Oxycodone/A Mg cetaminophe Tablet n (Percocet *) 5 5-325 Mg Mg-325 Tablet*) 5 Mg Mg-325 Mg Tablet Tablet, 1 , 1 Tab Oral Tab Oral Insurance Providers Payer name Policy type Policy ID Covered Covered republican's Policy P jessica / Coverage republican ID relationship to [place] [facility] ormation type victoria SIENA MEDICARE [id number] SP [id number] MEDICAID [id number] SP [id number] SUSIE [id number] SP [id number] 100 MEDICARE ADV PLAN MEDICAID OF [id number] [place] CARE [id number] [place] SUSIE [id number] 1 [id number] MEDICARE ADVANTAGE MEDICAID [id number] PT [id number] SUSIE [id number] PT [id number] 100 MEDICARE ADVANTAGE BETTER [id number] PT [id number] 100 HEALTH/FIDELI S MEDICARE [id number] PT [id number] A Problems, Conditions, and Diagnoses Code Display Name Description Problem Type Effective Data Sour ce(s) Dates E63.9 Nutritional Nutritional Problem 04/21/2019 eCW3 ([place] deficiency deficiency 12:00:00 AM [facility] EST Care) M54.40 Lumbago with Lumbago with Problem 04/10/2019 eCW3 ([place] sciatica, sciatica, 12:00:00 AM [facility] unspecified side unspecified side EST Ca re) R63.0 Poor appetite Poor appetite Problem 04/10/2019 eCW3 ([place] 12:00:00 AM [facility] EST Care) G89.29 Other chronic pain Other chronic pain Problem 9 eCW3 ([place] 12:00:00 AM [facility] EST Care) H62.40 Otitis externa in Otitis externa in Problem 04/10/2019 eCW3 ([place] other diseases other diseases 12:00:00 AM [facility] classified classified EST Care) elsewhere, elsewhere, unspecified ear unspecified ear M54.32 Sciatica of left Sciatica of left Problem 12/13/2018 eC W3 ([place] side side 12:00:00 AM [facility] EDT Care) M54.31 Sciatica, right Sciatica, right Problem 12/13/2018 eCW3 ([place] side side 12:00:00 AM [facility] EDT Care) J44.9 Chronic Chronic Problem 10/22/2018 eCW3 ([place] obstructive obstructive 12:00:00 [facility] pulmonary disease, pulmonary disease, EDT Care) unspecified COPD unspecified COPD type type M48.02 Cervical stenosis Cervical stenosis Problem 10/11/2017 eCW3 ([place] of spine of spine 12:00:00 AM [facility] EDT Care) Z00.00 Medicare annual Medicare annual Problem 10/11/2017 eCW3 ([place] wellness visit, wellness visit, 12:00:00 [facility] subsequent 18+ subsequent 18+ EDT Care) J44.1 COPD exacerbation COPD exacerbation Problem 10/11/2017 eCW3 ([place] 12:00:00 AM [facility] EDT Care) Z87.891 Ex-smoker Former smoker Problem 10/11/2017 eCW3 ([place] 12:00:00 AM [facility] EDT Care) Z12.11 Colon cancer Colon cancer Problem 10/11/2017 eCW3 ([place] screening screening 12:00:00 AM [facility] EDT Care) Z00.00 Medicare annual Medicare annual Problem 10/11/2017 eCW2 ([place] wellness visit, wellness visit, 12:00:[facility] subsequent [facility]+ subsequent 18+ EDT Care) M48.02 Cervical stenosis Cervical stenosis Problem 10/11/2017 eCW2 ([place] of spine of spine 12:00:00 AM [facility] EDT Care) Z87.891 Ex-smoker Former smoker Problem 10/11/2017 eCW2 ([place] 12:00:00 AM [facility] EDT Care) J44.1 COPD exacerbation COPD exacerbation Problem 10/11/2017 eCW2 ([place] 12:00:00 AM [facility] EDT Care) Z12.11 Colon cancer Colon cancer Problem 10/11/2017 eCW2 ([place] screening screening 12:00:00 AM [facility] EDT Care) M79.642 Left hand pain Left hand pain Problem 06/20/2017 eCW3 ( [place] 12:00:00 AM [facility] EST Care) M79.642 Left hand pain Left hand pain Problem 06/20/2017 eCW2 ( [place] 12:00:00 AM [facility] EST Care) J44.9 COPD - Chronic COPD (chronic Problem 04/05/2017 eCW3 ([place] obstructive obstructive 12:00:00 AM [facility] pulmonary disease pulmonary disease) EST Care) J44.9 COPD - Chronic COPD (chronic Problem 04/05/2017 eCW2 ([facility] obstructive obstructive [facility] Care) 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 Problem 12/01/2016 eCW3 ([place] disc disorder 12:00:00 AM [facility] EDT Care) 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 Problem 12/01/2016 eCW2 ([place] disc disorder 12:00:00 AM [facility] EDT Care) K90.9 Malabsorption Malabsorption Problem 11/14/2016 eCW3 ([facility] 12:00:00 AM [facility] EDT Care) K90.9 Malabsorption Malabsorption Problem 11/14/2016 eCW2 ([facility] 12:00:00 AM [facility] EDT Care) Z72.0 Tobacco abuse Tobacco abuse Problem 03/01/2016 eCW3 ([facility] 12:00:00 AM [facility] EDT Care) Z78.9 Patient has Patient has Problem 03/01/2016 eCW3 ([place] healthcare proxy healthcare proxy 12:00:00 AM [facility] EDT Care) H91.91 Hearing loss, Hearing loss, Problem 03/01/2016 eCW3 ([facility] right right 12:00:00 AM [facility] EDT Care) H10.13 Allergic Allergic Problem 03/01/2016 eCW3 ([place] conjunctivitis, conjunctivitis, 12:00:00 AM [facility] bilateral bilateral EDT Care) Z78.9 Patient has Patient has Problem 03/01/2016 eCW2 ([place] healthcare proxy healthcare proxy 12:00:00 AM [facility] EDT Care) H10.13 Allergic Allergic Problem 03/01/2016 eCW2 ([place] conjunctivitis, conjunctivitis, 12:00:00 AM [facility] bilateral bilateral EDT Care) H91.91 Hearing loss, Hearing loss, Problem 03/01/2016 eCW2 ([facility] right right 12:00:00 AM [facility] EDT Care) Z72.0 Tobacco abuse Tobacco abuse Problem 03/01/2016 eCW2 ([facility] 12:00:00 AM [facility] EDT Care) N52.9 Erectile Erectile Problem 08/31/2015 eCW3 ([place] dysfunction dysfunction 12:00:00 [facility]T [facility]) E55.9 Vitamin D Vitamin D Problem 08/31/2015 eCW3 ([place] deficiency deficiency 12:00:00 AM [facility] EDT Care) J44.0 Chronic COPD (chronic Problem 08/31/2015 eCW3 ([place] obstructive obstructive 12:00:00 AM [facility] pulmonary disease pulmonary disease) EDT Care) with acute lower with acute respiratory bronchitis infection B18.2 Chronic hepatitis Chronic hepatitis Problem 08/31/2015 eCW3 ([place] C C 12:00:00 AM [facility] EDT Care) E55.9 Vitamin D Vitamin D Problem 08/31/2015 eCW2 ([place] deficiency deficiency 12:00:00 AM [facility] EDT Care) B18.2 Chronic hepatitis Chronic hepatitis Problem 08/31/2015 eCW2 ([place] C C 12:00:00 AM [facility] EDT Care) N52.9 Erectile Erectile Problem 08/31/2015 eCW2 ([place] dysfunction dysfunction 12:00:00 AM [facility] EDT Care) J44.0 Chronic COPD (chronic Problem 08/31/2015 eCW2 ([place] obstructive obstructive 12:00:00 AM [facility] pulmonary disease pulmonary disease) EDT Care) with acute lower with acute respiratory bronchitis infection R21 Rash Rash Problem 07/08/2015 eCW3 ([place] 12:00:00 AM [facility] EST Care) XX No diagnosis Standing Order Problem 07/08/2015 eCW3 ([facility] 12:00:00 AM [facility] EST Care) F51.04 Chronic insomnia Chronic insomnia Problem 07/08/2015 eC W3 ([place] 12:00:00 AM [facility] EST Care) XX No diagnosis Standing Order Problem 07/08/2015 eCW2 ([facility] 12:00:00 AM [facility] EST Care) R21 Rash Rash Problem 07/08/2015 eCW2 ([place] 12:00:00 AM [facility] EST Care) F51.04 Chronic insomnia Chronic insomnia Problem 07/08/2015 eC W2 ([place] 12:00:00 AM [facility] EST Care) R26.9 Unspecified R26.9 Diagnosis 06/14/2018 [employer] abnormalities of 10:58:00 AM Hospita l gait and mobility EST Z86.19 Personal history Z86.19 Diagnosis 06/14/[address] [place] of other 10:58:00 AM Hospital infectious and EST parasitic diseases F17.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.200 Diagnosis 06/14/2018 [employer] dependence, 10:58:00 AM Hospital unspecified, EST uncomplicated J44.9 Chronic J44.9 Diagnosis 06/14/2018 [employer] obstructive 10:58:00 AM Hospital pulmonary disease, EST unspecified M25.78 Osteophyte, M25.78 Diagnosis 06/14/2018 [employer] vertebrae 10:58:00 AM Hospital EST M48.02 Spinal stenosis, M48.02 Diagnosis 06/14/[address] [place] cervical region 10:58:00 AM Hospital EST M50.01 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 tromethamine, per 15 12:00:00 AM Health Care) mg EDT Oral medication 09/16/2018 eCW3 ([place] administration, 12:00:00 AM Health Care) direct observation EDT X-ray of cervical X-ray of cervical 06/15/2018 [employer] spine, flexion and spine, flexion and 12:00:00 AM Hos pital extension views only extension views only EST X-ray of cervical X-ray of cervical 06/15/2018 [employer] spine, flexion and spine, flexion and 12:00:00 AM Hos pital extension views only extension views only EST X-ray of cervical X-ray of cervical 06/13/2018 [employer] spine, flexion and spine, flexion and 12:00:00 AM Hos pital extension views only extension views only EST Fluoroscopy with Fluoroscopy with 06/13/2018 Rona schumacher C-arm for 60 minutes C-arm for 60 minutes 12:00:00 AM Hospital EST Fusion, spine, Fusion, spine, 06/13/2018 [place] cervical, anterior cervical, anterior 12:00:00 AM Hos pital approach approach EST X-ray of cervical X-ray of cervical 06/13/2018 [employer] spine, flexion and spine, flexion and 12:00:00 AM Hos pital extension views only extension views only EST Fluoroscopy with Fluoroscopy with 06/13/2018 Rona schumacher C-arm for 60 minutes C-arm for 60 minutes 12:00:00 AM Hospital EST Fusion, spine, Fusion, spine, 06/13/2018 [place] cervical, anterior cervical, anterior 12:00:00 AM Hos pital approach approach EST No Known procedures No Known procedures e 2 ([facility]) Results ID Date Data Source [id number] 12/30/2019 04:30:00 AM EDT [facility] Name Value Range Interpretation Description Data Sup porting Code Source(s) Document(s ) SARS [facility] coronavirus 2 RNA This lab was ordered by [facility] and reported by [facility]. ID Date Data Source [id number] 06/16/2018 05:53:00 AM [facility] Name Value Range Interpretation Description Data Sup porting Code Source(s) Document(s ) Calcium 8.7 mg/dL 8.3-10.6 CALCIUM [employer] [Mass/volum Hospital e] in Serum or Plasma ID Date Data Source [id number] 06/16/2018 05:53:00 AM [facility] Name Value Range Interpretation Description Data Sup porting Code Source(s) Document(s ) Urea 14.1 6.0-20.0 BUN/CREATININE [employer] nitrogen/C RATIO Hospital reatinine [Mass Ratio] in Serum or Plasma ID Date Data Source [id number] 06/16/2018 05:53:00 AM [facility] Name Value Range Interpretation Description Data Sup porting Code Source(s) Document(s ) Creatinine 0.8 0.9-1.3 Below low normal CREATININE [facility] [Mass/volume] mg/dL Hospital in Serum or Plasma ID Date Data Source [id number] 06/16/2018 05:53:00 AM [facility] Hospital Name Value Range Interpretation Description Data Sup porting Code Source(s) Document(s ) Urea 12 mg/dL 6-20 BLOOD UREA [employer] nitrogen NITROGEN Hospital [Mass/volume ] in Serum or Plasma ID Date Data Source [id number] 06/16/2018 05:53:00 AM [facility] Hospital Name Value Range Interpretation Code Description Data Vandana rce(s) Supporting Document(s ) Anion gap in 12 6-18 ANION GAP [facility] Serum or Hospital Plasma ID Date Data Source [id number] 06/16/2018 05:53:00 AM [facility] Name Value Range Interpretation Description Data Sup porting Code Source(s) Document(s ) Carbon 30 mmol/L 23-31 CARBON DIOXIDE [employer] dioxide, Hospital total [Moles/vol ume] in Serum or Plasma ID Date Data Source [id number] 06/16/2018 05:53:00 AM [facility] Hospital Name Value Range Interpretation Description Data Sup porting Code Source(s) Document(s ) Chloride 100 98-107 CHLORIDE [employer] [Moles/volum mmol/L Hospital e] in Serum or Plasma ID Date Data Source [id number] 06/16/2018 05:53:00 AM [facility] Hospital Name Value Range Interpretation Description Data Sup porting Code Source(s) Document(s ) Potassium 4.8 3.5-5.3 POTASSIUM [employer] [Moles/volume mmol/L Hospital ] in Serum or Plasma ID Date Data Source [id number] 06/16/2018 05:53:00 AM [facility] Hospital Name Value Range Interpretation Description Data Sup porting Code Source(s) Document(s ) Sodium 137 136-145 SODIUM [employer] [Moles/vol mmol/L Hospital ume] in Serum or Plasma ID Date Data Source [id number] 06/16/2018 05:53:00 AM EST [facility] Name Value Range Interpretation Description Data Sup porting Code Source(s) Document(s ) Glucose 120 mg/dL 74-106 Above high normal GLUCOSE [facility] [Mass/volum Hospital e] in Serum or Plasma ID Date Data Source [id number] 06/16/2018 05:53:[address] [facility] Value Range Interpretation Code Description Data Vandana rce(s) Supporting Document(s ) 0.0 % 0-0.2 NUCLEATED RBCS [facility] [employer] (AUTO DIFF%)DIS Hospital ID Date Data Source [id number] 06/16/2018 05:53:[address] [facility] Value Range Interpretation Description Data Sup porting Code Source(s) Document(s ) Differential MANUAL DIFF TYPE [facility] [employer] cell count Hospital method - Blood ID Date Data Source [id number] 06/16/2018 05:53:[address] [facility] Value Range Interpretation Description Data Sup porting Code Source(s) Document(s ) Cells 100 DIFF CELLS [facility] [employer] Counted COUNTED Hospital Total [#] in Blood ID Date Data Source [id number] 06/16/2018 05:53:[address] [facility] Value Range Interpretation Code Description Data Vandana rce(s) Supporting Document(s ) NORMAL PLATELET COMMENT [facility] Hospital ID Date Data Source [id number] 06/16/2018 05:53:[address] [facility] Value Range Interpretation Code Description Data Vandana rce(s) Supporting Document(s ) OCC SCHISTOCYTES [facility] ID Date Data Source [id number] 06/16/2018 05:53:00 AM EST [facility] Value Range Interpretation Code Description Data Vandana rce(s) Supporting Document(s ) OCC ELLIPTOCYTES [facility] ID Date Data Source [id number] 06/16/2018 05:53:00 AM EST [facility] Hospital Name Value Range Interpretation Code Description Data Vandana rce(s) Supporting Document(s ) OCC TARGET CELLS [facility] ID Date Data Source [id number] 06/16/2018 05:53:00 AM EST [facility] Hospital Name Value Range Interpretation Code Description Data Vandana rce(s) Supporting Document(s ) OCC OVALOCYTES [facility] ID Date Data Source [id number] 06/16/2018 05:53:00 AM EST [facility] Name Value Range Interpretation Code Description Data Vandana rce(s) Supporting Document(s ) OCC POLYCHROMASIA [facility] ID Date Data Source [id number] 06/16/2018 05:53:00 AM EST [facility] Name Value Range Interpretation Code Description Data Vandana rce(s) Supporting Document(s ) OCC MICROCYTOSIS [facility] ID Date Data Source [id number] 06/16/2018 05:53:00 AM EST [facility] Name Value Range Interpretation Code Description Data Vandana rce(s) Supporting Document(s ) OCC POIKILOCYTOSIS [facility] ID Date Data Source [id number] 06/16/2018 05:53:00 AM EST [facility] Name Value Range Interpretation Code Description Data Vandana rce(s) Supporting Document(s ) OCC ANISOCYTOSIS [facility] ID Date Data Source [id number] 06/16/2018 05:53:00 AM [facility] Hospital Name Value Range Interpretation Description Data Sup porting Code Source(s) Document(s ) Monocytes 1.02 0.0-1.0 Above high normal MONOCYTES (MAN [place] [#/volume] 10*3/uL DIFF #) Hospital in Blood by Manual count ID Date Data Source [id number] 06/16/2018 05:53:00 AM [facility] Name Value Range Interpretation Description Data Sup porting Code Source(s) Document(s ) Lymphocytes 0.60 1.2-3.5 Below low normal LYMPHOCYTES [facility] [#/volume] in 10*3/uL (MAN DIFF #) [place] Blood by Hospital Manual count ID Date Data Source [id number] 06/16/2018 05:53:00 AM [facility] Name Value Range Interpretation Description Data Sup porting Code Source(s) Document(s ) Neutrophils 6.89 1.5-6.6 Above high normal NEUTROPHILS [facility] [#/volume] in 10*3/uL (MAN DIFF #) [place] Blood by [facility] Manual count ID Date Data Source [id number] 06/16/2018 05:53:[address] [facility] Value Range Interpretation Description Data Sup porting Code Source(s) Document(s ) Monocytes/100 12 % 2.0-12.0 MONOCYTES [facility] [employer] leukocytes in Hospital Blood by Manual count ID Date Data Source [id number] 06/16/2018 05:53:[address] [facility] Value Range Interpretation Description Data Sup porting Code Source(s) Document(s ) Lymphocytes/10 7 % 20.0-48.0 Below low normal LYMPHOCYTES [facility] [employer] 0 leukocytes Hospital in Blood by Manual count ID Date Data Source [id number] 06/16/2018 05:53:00 AM [facility] Name Value Range Interpretation Description Data Sup porting Code Source(s) Document(s ) Band form 1 % 0-6.0 BANDS [facility] [employer] neutrophils/100 Hospital leukocytes in Blood ID Date Data Source [id number] 06/16/2018 05:53:00 AM EST [facility] Hospital Name Value Range Interpretation Description Data Sup porting Code Source(s) Document(s ) Neutrophils/10 80 % 40.0-75. Above high normal SEGMENTED [place] 0 leukocytes 0 NEUTROPHILS Hospital in Blood by Manual count ID Date Data Source [id number] 06/16/2018 05:53:00 AM [facility] Name Value Range Interpretation Description Data Sup porting Code Source(s) Document(s ) Platelet 10.2 fL 9.6-12.8 MEAN PLATELET [facility] [employer] mean volume VOLUME Hospital [Entitic volume] in Blood by Automated count ID Date Data Source [id number] 06/16/2018 05:53:00 AM [facility] Name Value Range Interpretation Description Data Sup porting Code Source(s) Document(s ) Platelets 193 150-400 PLATELET COUNT [employer] [#/volume] 10*3/uL Hospital in Blood by Automated count ID Date Data Source [id number] 06/16/2018 05:53:00 AM [facility] Name Value Range Interpretation Description Data Sup porting Code Source(s) Document(s ) Erythrocyte 14.2 % 11.5-14. RED CELL [facility] distribution 5 DISTRIBUTION [place] width [Ratio] WIDTH Hospital by Automated count ID Date Data Source [id number] 06/16/2018 05:53:00 AM [facility] Name Value Range Interpretation Description Data Sup porting Code Source(s) Document(s ) Erythrocyte mean 32.6 31.0-36. MEAN [facility] corpuscular g/dL 0 CORPUSCULAR [place] hemoglobin HGB CONCEN Hospital concentration [Mass/volume] by Automated count ID Date Data Source [id number] 06/16/2018 05:53:00 AM [facility] Name Value Range Interpretation Description Data Sup porting Code Source(s) Document(s ) Erythrocyte 26.8 pg 27.0-34. Below low normal MEAN [facility] mean 0 CORPUSCULAR [place] corpuscular HEMOGLOBIN Hospital hemoglobin [Entitic mass] by Automated count ID Date Data Source [id number] 06/16/2018 05:53:[address] [facility] Value Range Interpretation Description Data Sup porting Code Source(s) Document(s ) Erythrocyte 82.3 fL 80.0-96. MEAN [facility] mean 0 CORPUSCULAR [place] corpuscular VOLUME Hospital volume [Entitic volume] by Automated count ID Date Data Source [id number] 06/16/2018 05:53:[address] [facility] Value Range Interpretation Description Data Sup porting Code Source(s) Document(s ) Hematocrit 33.4 % 42.0-50.0 Below low normal HEMATOCRIT [place] [facility] [Volume Hospital Fraction] of Blood by Automated count ID Date Data Source [id number] 06/16/2018 05:53:[address] [facility] Value Range Interpretation Description Data Sup porting Code Source(s) Document(s ) Hemoglobin 10.9 13.6-17. Below low normal HEMOGLOBIN [place] [facility] [Mass/volume] g/dL 0 Hospital in Blood ID Date Data Source [id number] 06/16/2018 05:53:[address] [facility] Value Range Interpretation Description Data Sup porting Code Source(s) Document(s ) Erythrocytes 4.06 4.50-5.9 Below low normal RED BLOOD [facility] [#/volume] in 10*6/uL 0 CELL COUNT [place] Blood by Hospital Automated count ID Date Data Source [id number] 06/16/2018 05:53:[address] [facility] Value Range Interpretation Description Data Sup porting Code Source(s) Document(s ) Leukocytes 8.5 4.0-10.0 WHITE BLOOD [facility] [#/volume] in 10*3/uL CELL COUNT [facility] Blood by Automated count ID Date Data Source [id number] 06/16/2018 05:53:00 AM [facility] Hospital Name Value Range Interpretation Description Data Sup porting Code Source(s) Document(s ) Calcium 8.7 mg/dL 8.3-10.6 CALCIUM [facility] [employer] [Mass/volum Hospital e] in Serum or Plasma ID Date Data Source [id number] 06/16/2018 05:53:00 AM [facility] Hospital Name Value Range Interpretation Description Data Sup porting Code Source(s) Document(s ) Urea 14.1 6.0-20.0 BUN/CREATININE [facility] [employer] nitrogen/C RATIO Hospital reatinine [Mass Ratio] in Serum or Plasma ID Date Data Source [id number] 06/16/2018 05:53:00 AM [facility] Name Value Range Interpretation Description Data Sup porting Code Source(s) Document(s ) Creatinine 0.8 0.9-1.3 Below low normal CREATININE [place] [facility] [Mass/volume] mg/dL Hospital in Serum or Plasma ID Date Data Source [id number] 06/16/2018 05:53:00 AM [facility] Hospital Name Value Range Interpretation Description Data Sup porting Code Source(s) Document(s ) Urea 12 mg/dL 6-20 BLOOD UREA [facility] [employer] nitrogen NITROGEN Hospital [Mass/volume ] in Serum or Plasma ID Date Data Source [id number] 06/16/2018 05:53:00 AM [facility] Hospital Name Value Range Interpretation Code Description Data Vandana rce(s) Supporting Document(s ) Anion gap in 12 6-18 ANION GAP [facility] Serum or Hospital Plasma ID Date Data Source [id number] 06/16/2018 05:53:00 AM [facility] Name Value Range Interpretation Description Data Sup porting Code Source(s) Document(s ) Carbon 30 mmol/L 23-31 CARBON DIOXIDE [facility] [employer] dioxide, Hospital total [Moles/vol ume] in Serum or Plasma ID Date Data Source [id number] 06/16/2018 05:53:00 AM EST [facility] Hospital Name Value Range Interpretation Description Data Sup porting Code Source(s) Document(s ) Chloride 100 98-107 CHLORIDE [employer] [Moles/volum mmol/L Hospital e] in Serum or Plasma ID Date Data Source [id number] 06/16/2018 05:53:00 AM EST [facility] Hospital Name Value Range Interpretation Description Data Sup porting Code Source(s) Document(s ) Potassium 4.8 3.5-5.3 POTASSIUM [facility] [employer] [Moles/volume mmol/L Hospital ] in Serum or Plasma ID Date Data Source [id number] 06/16/2018 05:53:00 AM [facility] Hospital Name Value Range Interpretation Description Data Sup porting Code Source(s) Document(s ) Sodium 137 136-145 SODIUM [employer] [Moles/vol mmol/L Hospital ume] in Serum or Plasma ID Date Data Source [id number] 06/16/2018 05:53:00 AM [facility] Hospital Name Value Range Interpretation Description Data Sup porting Code Source(s) Document(s ) Glucose 120 mg/dL 74-106 Above high normal GLUCOSE [facility] [employer] [Mass/volum Hospital e] in Serum or Plasma ID Date Data Source [id number] 06/16/2018 05:53:00 AM [facility] Hospital Name Value Range Interpretation Code Description Data Vandana rce(s) Supporting Document(s ) 0.0 % 0-0.2 NUCLEATED RBCS [facility] (AUTO DIFF%)DIS Hospital ID Date Data Source [id number] 06/16/2018 05:53:00 AM EST [facility] Hospital Name Value Range Interpretation Description Data Sup porting Code Source(s) Document(s ) Differential MANUAL DIFF TYPE [facility] cell count Hospital method - Blood ID Date Data Source [id number] 06/16/2018 05:53:00 AM EST [facility] Hospital Name Value Range Interpretation Description Data Sup porting Code Source(s) Document(s ) Cells 100 DIFF CELLS [facility] Counted COUNTED Hospital Total [#] in Blood ID Date Data Source [id number] 06/16/2018 05:53:00 AM EST [facility] Hospital Name Value Range Interpretation Code Description Data Vandana rce(s) Supporting Document(s ) NORMAL PLATELET COMMENT [facility] ID Date Data Source [id number] 06/16/2018 05:53:00 AM EST [facility] Name Value Range Interpretation Code Description Data Vandana rce(s) Supporting Document(s ) OCC SCHISTOCYTES [facility] ID Date Data Source [id number] 06/16/2018 05:53:00 AM EST [facility] Hospital Name Value Range Interpretation Code Description Data Vandana rce(s) Supporting Document(s ) OCC ELLIPTOCYTES [facility] ID Date Data Source [id number] 06/16/2018 05:53:00 AM EST [facility] Name Value Range Interpretation Code Description Data Vandana rce(s) Supporting Document(s ) OCC TARGET CELLS [facility] ID Date Data Source [id number] 06/16/2018 05:53:00 AM EST [facility] Hospital Name Value Range Interpretation Code Description Data Vandana rce(s) Supporting Document(s ) OCC OVALOCYTES [facility] ID Date Data Source [id number] 06/16/2018 05:53:00 AM EST [facility] Name Value Range Interpretation Code Description Data Vandana rce(s) Supporting Document(s ) OCC POLYCHROMASIA [facility] ID Date Data Source [id number] 06/16/2018 05:53:00 AM EST [facility] Name Value Range Interpretation Code Description Data Vandana rce(s) Supporting Document(s ) OCC MICROCYTOSIS [facility] ID Date Data Source [id number] 06/16/2018 05:53:00 AM [facility] Hospital Name Value Range Interpretation Code Description Data Vandana rce(s) Supporting Document(s ) OCC POIKILOCYTOSIS [facility] ID Date Data Source [id number] 06/16/2018 05:53:00 AM [facility] Name Value Range Interpretation Code Description Data Vandana rce(s) Supporting Document(s ) OCC ANISOCYTOSIS [facility] ID Date Data Source [id number] 06/16/2018 05:53:[address] [facility] Value Range Interpretation Description Data Sup porting Code Source(s) Document(s ) Monocytes 1.02 0.0-1.0 Above high normal MONOCYTES (MAN [place] [#/volume] 10*3/uL DIFF #) Hospital in Blood by Manual count ID Date Data Source [id number] 06/16/2018 05:53:[address] [facility] Value Range Interpretation Description Data Sup porting Code Source(s) Document(s ) Lymphocytes 0.60 1.2-3.5 Below low normal LYMPHOCYTES White [#/volume] in 10*3/uL (MAN DIFF #) [place] [facility] Manual count ID Date Data Source [id number] 06/16/2018 05:53:00 AM [facility] Hospital Name Value Range Interpretation Description Data Sup porting Code Source(s) Document(s ) Neutrophils 6.89 1.5-6.6 Above high normal NEUTROPHILS White [#/volume] in 10*3/uL (MAN DIFF #) [place] [facility] Manual count ID Date Data Source [id number] 06/16/2018 05:53:00 AM [facility] Name Value Range Interpretation Description Data Sup porting Code Source(s) Document(s ) Monocytes/100 12 % 2.0-12.0 MONOCYTES [employer] leukocytes in Hospital Blood by Manual count ID Date Data Source [id number] 06/16/2018 05:53:00 AM [facility] Name Value Range Interpretation Description Data Sup porting Code Source(s) Document(s ) Lymphocytes/10 7 % 20.0-48.0 Below low normal LYMPHOCYTES [employer] 0 leukocytes Hospital in Blood by Manual count ID Date Data Source [id number] 06/16/2018 05:53:00 AM [facility] Name Value Range Interpretation Description Data Sup porting Code Source(s) Document(s ) Band form 1 % 0-6.0 BANDS [employer] neutrophils/100 Hospital leukocytes in Blood ID Date Data Source [id number] 06/16/2018 05:53:00 AM [facility] Name Value Range Interpretation Description Data Sup porting Code Source(s) Document(s ) Neutrophils/10 80 % 40.0-75. Above high normal SEGMENTED [facility] [place] [facility] 0 leukocytes 0 NEUTROPHILS Hospital in Blood by Manual count ID Date Data Source [id number] 06/16/2018 05:53:00 AM [facility] Name Value Range Interpretation Description Data Sup porting Code Source(s) Document(s ) Platelet 10.2 fL 9.6-12.8 MEAN PLATELET [employer] mean volume VOLUME Hospital [Entitic volume] in Blood by Automated count ID Date Data Source [id number] 06/16/2018 05:53:00 AM [facility] Name Value Range Interpretation Description Data Sup porting Code Source(s) Document(s ) Platelets 193 150-400 PLATELET COUNT [employer] [#/volume] 10*3/uL Hospital in Blood by Automated count ID Date Data Source [id number] 06/16/2018 05:53:00 AM [facility] Name Value Range Interpretation Description Data Sup porting Code Source(s) Document(s ) Erythrocyte 14.2 % 11.5-14. RED CELL [facility] distribution 5 DISTRIBUTION [place] width [Ratio] WIDTH Hospital by Automated count ID Date Data Source [id number] 06/16/2018 05:53:[address] [facility] Value Range Interpretation Description Data Sup porting Code Source(s) Document(s ) Erythrocyte mean 32.6 31.0-36. MEAN White corpuscular g/dL 0 CORPUSCULAR [place] hemoglobin HGB CONCEN Hospital concentration [Mass/volume] by Automated count ID Date Data Source [id number] 06/16/2018 05:53:[address] [facility] Value Range Interpretation Description Data Sup porting Code Source(s) Document(s ) Erythrocyte 26.8 pg 27.0-34. Below low normal MEAN White mean 0 CORPUSCULAR [place] corpuscular HEMOGLOBIN Hospital hemoglobin [Entitic mass] by Automated count ID Date Data Source [id number] 06/16/2018 05:53:[address] [facility] Value Range Interpretation Description Data Sup porting Code Source(s) Document(s ) Erythrocyte 82.3 fL 80.0-96. MEAN White mean 0 CORPUSCULAR [place] corpuscular VOLUME Hospital volume [Entitic volume] by Automated count ID Date Data Source [id number] 06/16/2018 05:53:00 AM [facility] Name Value Range Interpretation Description Data Sup porting Code Source(s) Document(s ) Hematocrit 33.4 % 42.0-50.0 Below low normal HEMATOCRIT [place] [Volume Hospital Fraction] of Blood by Automated count ID Date Data Source [id number] 06/16/2018 05:53:00 AM [facility] Name Value Range Interpretation Description Data Sup porting Code Source(s) Document(s ) Hemoglobin 10.9 13.6-17. Below low normal HEMOGLOBIN [place] [Mass/volume] g/dL 0 Hospital in Blood ID Date Data Source [id number] 06/16/2018 05:53:00 AM [facility] Name Value Range Interpretation Description Data Sup porting Code Source(s) Document(s ) Erythrocytes 4.06 4.50-5.9 Below low normal RED BLOOD White [#/volume] in 10*6/uL 0 CELL COUNT [place] [facility] Automated count ID Date Data Source [id number] 06/16/2018 05:53:00 AM [facility] Name Value Range Interpretation Description Data Sup porting Code Source(s) Document(s ) Leukocytes 8.5 4.0-10.0 WHITE BLOOD [employer] [#/volume] in 10*3/uL CELL COUNT Hospital Blood by Automated count ID Date Data Source [id number] 06/13/2018 05:03:00 PM [facility] Administrative Engineer: ROSSANA ART NT Name Value Range Interpretation Description Data Sup porting Code Source(s) Document(s ) Glucose 106 74-106 METER GLUCOSE [employer] [Mass/volume] mg/dL Hospital in Capillary blood by Glucometer ID Date Data Source [id number] 06/13/2018 05:03:00 PM [facility] Administrative Engineer: ROSSANA ART NT Name Value Range Interpretation Description Data Sup porting Code Source(s) Document(s ) Glucose 106 74-106 METER GLUCOSE [employer] [Mass/volume] mg/dL Hospital in Capillary blood by Glucometer Procedure Social History Code Duration Value Status Description Data Source(s ) Smoking 2019 Former Smoker completed Former Smoker eCW3 ([facility] 12:00:00 AM EDT [facility]) Smoking 2019 Former Smoker completed Former Smoker eCW3 ([facility] 12:00:00 AM EDT [facility]) Former Smoker completed Former Smoker eCW3 ([facility]) Former Smoker completed Former Smoker eCW3 ([facility]) Smoking Unknown if ever completed Unknown if ever Ernesto Gutierrez smoked [facility] Smoking Unknown if ever completed Unknown if ever eCW2 ([facility]) Smoking Ex-smoker completed Ex-smoker (finding) [employer] (finding) [facility] Smoking Ex-smoker completed Ex-smoker (finding) [employer] (finding) [facility] Vital Signs ID Date Data Source UNK Name Value Range Interpretation Code Description Data Source(s) Diastolic blood 85 mm[Hg] 85 mm[Hg] eCW3 ([facility]) Systolic blood 121 mm[Hg] 121 mm[Hg] eCW3 ([facility]) Body temperature 98.7 [degF] 98.7 [degF] eCW3 ( [facility]) Body mass index 16.21 kg/m2 16.21 kg/m2 eCW3 ([facility] (BMI) [Ratio] [facility]) Body weight 102 [lb_av] 102 [lb_av] eCW3 ([facility]) Body height 66.5 [in_i] 66.5 [in_i] eCW3 ([facility]) Diastolic blood 65 mm[Hg] 65 mm[Hg] eCW3 ([facility]) Systolic blood 106 mm[Hg] 106 mm[Hg] eCW3 ([facility]) Body temperature 98.5 [degF] 98.5 [degF] eCW3 ( [facility]) Body height 66.5 [in_i] 66.5 [in_i] eCW3 ([facility]) Patient Treatment Plan of Care Planned Activity Planned Date Details Description Data Source (s) 28 ACTUAT tiotropium 0.0025 10/02/2019 eCW3 ([facility] MG/ACTUAT Metered Dose 12:00:00 AM [facility]) Inhaler [Spiriva] 24 HR Nicotine 0.292 MG/HR 07/30/2019 e CW3 ([facility] Transdermal Patch 12:00:00 AM [facility]) 120 ACTUAT Budesonide 0.16 07/24/2019 e CW3 ([place] MG/ACTUAT / formoterol 12:00:00 AM EDT [facility]) fumarate 0.0045 MG/ACTUAT Metered Dose Inhaler [Symbicort] 120 ACTUAT Fluticasone 06/05/2019 eCW3 ([place] propionate 0.23 MG/ACTUAT / 12:00:00 AM [facility]) salmeterol 0.021 MG/ACTUAT Metered Dose Inhaler [Advair] Zolpidem tartrate 5 MG Oral 06/19/2018 [employer] Tablet 12:00:00 AM [facility] Methylprednisolone (Medrol 06/19/2018 W rg [place] Dose-Tristan 4MG Tab*) 4 Mg 12:00:00 AM [facility] H ospital Tab.ds.pk Hydromorphone Hydrochloride 2 06/19/2018 [employer] MG Oral Tablet [Dilaudid] 12:00:00 AM [facility] heparin sodium, porcine 5000 06/19/2018 [employer] UNT/ML Injectable Solution 12:00:00 AM [facility] Acetaminophen 325 MG Oral 06/19/2018 [facility] [place] Tablet [Mapap] 12:00:00 AM [facility] Zolpidem tartrate 5 MG Oral 06/19/2018 [employer] Tablet 12:00:00 AM [facility] Methylprednisolone (Medrol 06/19/2018 W rg [place] Dose-Tristan 4MG Tab*) 4 Mg 12:00:00 AM [facility] H ospital Tab.ds.pk Hydromorphone Hydrochloride 2 06/19/2018 [employer] MG Oral Tablet [Dilaudid] 12:00:00 AM [facility] heparin sodium, porcine 5000 06/19/2018 [employer] UNT/ML Injectable Solution 12:00:00 AM [facility] Acetaminophen 325 MG Oral 06/19/2018 Wh ite [place] Tablet [Mapap] 12:00:00 AM [facility] Ensure Enlive - eCW3 ([facility]) 200 ACTUAT Albuterol 0.09 eC W3 ([place] MG/ACTUAT Dry Powder Inhaler [facility]) [ProAir] Acetaminophen 325 MG / [employer] Oxycodone Hydrochloride 5 MG Hospital Oral Tablet [Percocet] Naproxen 500 MG Oral Tablet [employer] [Naprosyn] Hospital Salmeterol [employer] Xinafoate/Fluticasone ([facility] 250/50 Diskus*) 250 Mcg-50 Mcg/Dose Blst.w.dev 120 ACTUAT Albuterol 0.1 Whi te [place] MG/ACTUAT / [facility] 0.02 MG/ACTUAT Metered Dose Inhaler [Combivent] gabapentin 300 MG Oral [employer] Capsule [Neurontin] [facility] Acetaminophen 325 MG / [employer] Oxycodone Hydrochloride 5 MG Hospital Oral Tablet [Percocet] Naproxen 500 MG Oral Tablet [employer] [Napros] [facility] Salmeterol [employer] Xinafoate/Fluticasone ([facility] 250/50 Diskus*) 250 Mcg-50 Mcg/Dose Blst.w.dev 120 ACTUAT Albuterol 0.1 Whi te [place] MG/ACTUAT / [facility]ropium [facility] 0.02 MG/ACTUAT Metered Dose Inhaler [Combivent] gabapentin 300 MG Oral [employer] Capsule [[facility]] [facility]
[2020-01-20] MEDS ORDERED: MORPHINE SULFATE 2 MG/ML VIAL ONE ×2 (16:42→21:32)
--- NOTE | 2020-01-20 18:05 | PDOC ---
Documentation entered by Ama Infante SCRIBE, acting as scribe for Zohaib Ashby MD. Zohaib Ashby MD: This documentation has been prepared by the Naresh casarez Brenda, SCRIBE, under my direction and personally reviewed by me in its entirety. I confirm that the documentation accurately reflects all work, treatment, procedures, and medical decision making performed by me. Attending Attestation - Resident Resident Name: Mary Stanley - ED Attending Attestation I have performed the following: I have examined & evaluated the patient, The case was reviewed & discussed with the resident, I agree w/resident's findings & plan, Exceptions are as noted - HPI HPI: 01/20/20 18:06 69 years old with past medical history significant for COPD status post appendectomy hepatitis C recurrent SBO with recent lysis of adhesions presents to the emergency department with multiple episodes of nonbilious nonbloody vomit associated with diffuse abdominal pain moderate to severe nature persistent constant no exacerbating relieving events - Physicial Exam PE: 01/20/20 18:49 Vitals: Triage Vital signs reviewed General Appearance: No acute distress, well nourished well developed, Head: Atraumatic, Cardiac: Regular rate and rhythym, no murmurs, no rubs, no gallops, Lungs: Clear to auscultation bilateral, good air movement bilaterally, Abdomen: Soft, non distended, normal bowel sounds, Diffuse abdominal tenderness palpation Extremities: Full range of motion to all extremities, no cyanosis, clubbing, or edema Skin: Warm and dry, no rashes or lesions, no rash, no petechiae Psych: Normal mood, normal affect - Medical Decision Making 01/22/20 15:38 History and examination concerning for small bowel obstruction CT with oral and IV contrast ordered to follow up results and reasses Discharge - Discharge Information Problems reviewed: Yes Clinical Impression/Diagnosis: Small bowel obstruction - Follow up/Referral - Patient Discharge Instructions - Post Discharge Activity
--- NOTE | 2020-01-20 21:10 | PN ---
Teaching Attending Note Name of Resident: Sally Nicolas ATTENDING PHYSICIAN STATEMENT I saw and evaluated the patient. I reviewed the resident's note and discussed the case with the resident. I agree with the resident's findings and plan as documented. SUBJECTIVE: Patient is a 69 year old man with a PMH of COPD, Appendectomy, Remote cocaine/heroin use, Exploratory laparotomy (s/p perforated colon during colonoscopy in 2012), Hepatitis C disease, Recurrent SBO and Recent lysis of adhesions presents to the ER with complaint of multiple episodes of nonbilious nonbloody vomiting associated with moderate to severe diffuse abdominal pain. Pain is constant with no exacerbating or relieving factors. Patient denies chest pain, shortness of breath, headache, palpitations, dizziness, fever, chills, diarrhea, constipation, dysuria, frequency, urgency, melena, hematochezia or hematuria. Former 40 pack year smoker. 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 Smokes marijuana twice a week. Denies alcohol, tobacco or illicit drug use. No sick contacts or recent travels. Family history is unremarkable. OBJECTIVE: Alert Vital Signs Period Temp Pulse Resp BP Sys/Monsalve Pulse Ox Last 24 Hr 98 F 81 20 117/80 97-98 HEENT: No Jaundice, eye redness or discharge, PERRLA, EOMI. Normocephalic, atraumatic. External ears are normal and hearing is grossly intact. No nasal discharge. Neck: Supple, nontender. No palpable adenopathy or thyromegaly. No JVD Chest: Good effort. Clear to auscultation and percussion. Heart: Regular. No S3, rub or murmur Abdomen: Not distended, soft, diffuse tenderness and no HSM. No rebound or guarding. Tympanic in the epigastric area. Ext: Peripheral pulses intact. No leg edema. Skin: Warm and dry. No petechiae, rash or ecchymosis. Neuro: Alert. Oriented x3. CN 2-12 grossly intact. Sensation grossly intact in all four extremities and DTR are symmetric. Psych: Appropriate mood and affect. Good insight. Home Medications Medication Instructions Recorded Ipratropium/Albuterol Sulfate 4 gm IH BID 10/13/17 [Combivent Respimat 20-100 Mcg] Fluticasone/Salmeterol [Advair 1 each IH BID 06/15/19 250-50 Diskus] Gabapentin [Neurontin] 300 mg PO HS 06/15/19 traZODone HCL [Trazodone HCl] 50 mg PO HS PRN 06/15/19 Docusate Sodium [Colace -] 100 mg PO BID #60 capsule 06/26/19 Polyethylene Glycol 3350 [Miralax 17 gm PO DAILY #1 bottle 06/27/19 119 gm Btl -] Doxepin HCl 75 mg PO DAILY 06/30/19 Mirtazapine 30 mg PO DAILY 06/30/19 Oxycodone HCl [Oxycodone HCl ER] 10 mg PO BID 01/01/20 Prednisone See Taper PO DAILY #30 tablet 01/06/20 Abnormal Lab Results 01/20/20 01/20/20 14:40 14:40 WBC 13.1 H MCHC 31.8 L RDW 17.5 H Absolute Neuts (auto) 10.4 H Anion Gap 7 L BUN 23.5 H Random Glucose 116 H Calcium 10.2 H AST 14 L Total Protein 8.5 H Lipase 66 L Current Medications Generic Name Dose Route Start Last Admin Trade Name Freq PRN Reason Stop Dose Admin Sodium Chloride 1,000 mls @ 50 mls/hr 01/20/20 22:30 Normal Saline - IV 01/22/20 18:29 ASDIR EMILY Morphine Sulfate 2 mg 01/20/20 22:24 Morphine Sulfate IVPUSH Q4H PRN PAIN LEVEL 6-10 Nicotine 7 mg 01/21/20 10:00 Nicoderm Patch - TD DAILY EMILY Ondansetron HCl 4 mg 01/20/20 22:27 Zofran Injection IVPUSH Q4H PRN NAUSEA AND/OR VOMITING ASSESSMENT AND PLAN: 1. Small bowel obstruction - CT scan of abdomen/pelvis with IV and oral contrast shows significant dilatation of the proximal and mid small bowel loops consistent with SBO. Leukocytosis likely due to stress, but urinalysis pending. Patient being kept NPO and Surgery consulted. Has not vomited since morning. Will place an NGT if vomiting reoccurs. ER staff prescribed Tylenol, Zofran, IV Morphine and IV LR for the patient. EKG shows sinus tachycardia at 104/minute, PACs and QTc 415, T wave inversion in V2 with no ischemic ST changes. Not significantly changed compared to prior EKG. Initial troponin is negative. Mild hypercalcemia - will repeat serum calcium after adequate hydration. Viral testing for COVID-19 ordered and patient placed on airborne, droplet and contact isolation. Will continue comprehensive care for all of patients comorbid conditions including Duoneb PRN for COPD. 2. DVT prophylaxis - SCD. 3. Advance directives - Full code
[2020-01-20] MEDS ORDERED: morphine CARPU-JECT 4 MG/1 ML DISP.SYRIN IVPUSH ONE (21:14)
--- OUTSIDE RECORDS SUMMARY | 2020-01-20 21:25 | XMS ---
:1950 Author Organization [facility] Care Team Providers Name Role Phone Triplett, [...] is protected by Article 27-F of the [facility] Public Health law. If you continue you may haveaccess to information: Regarding HIV / AIDS; Provided by facilities licensed or operated by the [facility] Office of Mental Health; or Provided by the [facility] Office for People With Developmental Disabilities. If such information is present, then the following [facility] mandated warning applies: This information has been [...] law may result in a fine or care home sentence or both. A general authorization for the release of medical or other information is NOT sufficient authorization for further disclosure. Allergies and Adverse Reactions Type Description Substance Reaction Status Data Source(s ) Drug allergy No Known No Known NO KNOWN Rona Sewell Allergies Allergies [facility] No Known No Known No Known eCW3 ([place] [facility] Allergies Allergies [facility]) No Known No Known No Known eCW3 ([place] Allerg[facility] Allergies Allergies [facility]) No Information No Information No Information eC W2 ([facility]) Encounters Encounter Providers Location Date Indications Data Source(s ) Outpatient [facility] 12/13/2018 eCW3 ([facility] 12:00:00 [facility] - Care) 12/13/2018 12:00:00 AM EDT Outpatient [facility] 09/16/2018 eCW3 ([facility] A28 12:00:00 [facility] - Care) 09/16/2018 12:00:00 AM EDT Inpatient Attender: 06/13/2018 CERVICAL Rona Triplett 10:30:00 AM MYELOPATHY [facility] MDAdmitter: DR BA Triplett MD 06/19/2018 04:02:00 PM EST CERVICAL MYELOPATHY [facility] 05/30/2018 12:00:00 eCW2 ([facility] AM EST Health Care ) [facility] 04/19/2018 12:00:00 eCW2 ([facility] AM EST Health Care ) [facility] 04/01/2018 12:00:00 eCW2 ([facility] AM EST Health Care ) [facility] 03/15/2018 12:00:00 eCW2 ([facility] AM EST Health Care ) [facility] 03/14/2018 12:00:00 eCW2 ([facility] AM EST Health Care ) [facility] 02/22/2018 12:00:00 eCW2 ([facility] AM EDT Health Care ) [facility] 02/19/2018 12:00:00 eCW2 ([facility] AM EDT Health Care ) [facility] 02/12/2018 12:00:00 eCW2 ([facility] AM EDT Health Care ) [facility] 01/24/2018 12:00:00 eCW2 ([facility] AM EDT Health Care ) [facility] 01/24/2018 12:00:00 eCW2 ([facility] AM EDT Health Care ) [facility] 01/24/2018 12:00:00 eCW2 ([facility] AM EDT Health Care ) [facility] 01/16/2018 12:00:00 eCW2 ([facility] AM EDT Health Care ) [facility] 01/16/2018 12:00:00 eCW2 ([facility] AM EDT Health Care ) [facility] 11/22/2017 12:00:00 [facility] 11/15/2017 12:00:00 [facility] 10/11/2017 12:00:00 eCW2 ([facility] AM EDT Health Care ) [facility] 09/20/2017 12:00:00 eCW2 ([facility] AM EDT Health Care ) [facility] 06/20/2017 12:00:00 eCW2 ([facility] AM EST Health Care ) [facility] 06/05/2017 12:00:00 eCW2 ([facility] AM EST Health Care ) [facility] 04/05/2017 12:00:00 eCW2 ([facility] AM EST Health Care ) [facility] 03/27/2017 12:00:00 eCW2 ([facility] AM EST Health Care ) [facility] 01/26/2017 12:00:00 eCW2 ([facility] AM EDT Health Care ) [facility] 01/05/2017 12:00:00 eCW2 ([facility] AM EDT Health Care ) [facility] 01/05/2017 12:00:00 eCW2 ([facility] AM EDT Health Care ) [facility] 01/02/2017 12:00:00 eCW2 ([facility] AM EDT Health Care ) [facility] 12/22/2016 12:00:00 eCW2 ([facility] AM EDT Health Care ) [facility] 12/12/2016 12:00: 00 eCW2 ([facility] AM EDT Health Care ) [facility] 12/08/2016 12:00:00 eCW2 ([facility] AM EDT Health Care ) [facility] 12/01/2016 12:00:00 eCW2 ([facility] AM EDT Health Care ) [facility] 11/22/2016 12:00:00 eCW2 ([facility] AM EDT Health Care ) [facility] 11/16/2016 12:00:00 eCW2 ([facility] AM EDT Health Care ) [facility] 11/14/2016 12:00:00 eCW2 ([facility] AM EDT Health Care ) [facility] 11/14/2016 12:00:00 eCW2 ([facility] AM EDT Health Care ) [facility] 11/14/2016 12:00:00 eCW2 ([facility] AM EDT Health Care ) [facility] 11/10/2016 12:00:00 eCW2 ([facility] AM EDT Health Care ) [facility] 10/05/2016 12:00:00 eCW2 ([facility] AM EDT Health Care ) [facility] 10/05/2016 12:00:00 eCW2 ([facility] AM EDT Health Care ) [facility] 09/29/2016 12:00:00 eCW2 ([facility] AM EDT Health Care ) [facility] 09/28/2016 12:00:00 [facility] 09/21/2016 12:00:00 eCW[facility] 09/21/2016 12:00:00 eCW2 ([facility] AM EDT Health Care ) [facility] 07/26/2016 12:00:00 eCW2 ([facility] AM EDT Health Care ) [facility] 07/03/2016 12:00:00 eCW2 ([facility] AM EST Health Care ) [facility] 06/28/2016 12:00:00 eCW2 ([facility] AM EST Health Care ) [facility] 03/01/2016 12:00:00 eCW2 ([facility] AM EDT Health Care ) [facility] 02/21/2016 12:00:00 eCW2 ([facility] AM EDT Health Care ) [facility] 12/29/2015 12:00:00 eCW2 ([facility] AM EDT Health Care ) [facility] 08/31/2015 12:00:00 eCW2 ([facility] AM EDT Health Care ) [facility] 08/10/2015 12:00:00 eCW2 ([facility] AM EDT Health Care ) [facility] 07/29/2015 12:00:00 eCW2 ([facility] AM EDT Health Care ) [facility] 07/16/2015 12:00:00 eCW2 ([facility] AM EST Health Care ) [facility] 07/09/2015 12:00:00 eCW2 ([facility] AM EST Health Care ) [facility] 07/08/2015 12:00:00 eCW2 ([facility] AM EST Health Care ) [facility] 06/09/2015 12:00:00 eCW2 ([facility] AM EST Health Care ) [facility] 03/08/2015 12:00:00 eCW2 ([facility] AM EST Health Care ) [facility] 03/05/2015 12:00: 00 eCW2 ([facility] AM EDT Health Care ) [facility] 02/19/2015 12:00:00 eCW2 ([facility] AM EDT Health Care ) [facility] 02/12/2015 12:00:00 eCW2 ([facility] AM EDT Health Care ) [facility] 11/27/2014 12:00:00 eCW2 ([facility] AM EDT Health Care ) [facility] 10/02/2014 12:00:00 eCW2 ([facility] AM EDT Health Care ) [facility] 09/24/2014 12:00:00 eCW2 ([facility] AM EDT Health Care ) [facility] 09/10/2014 12:00:00 eCW2 ([facility] AM EDT Health Care ) [facility] 08/27/2014 12:00:00 eCW2 ([facility] AM EDT Health Care ) [facility] 08/24/2014 12:00:00 eCW2 ([facility] AM EDT Health Care ) [facility] 08/21/2014 12:00:00 eCW2 ([facility] AM EDT Health Care ) [facility] 08/19/2014 12:00:00 eCW2 ([facility] AM EDT Health Care ) [facility] 07/30/2014 12:00:00 eCW2 ([facility] AM EDT Health Care ) [facility] 07/24/2014 12:00:00 eCW2 ([facility] AM EDT Health Care ) [facility] 07/23/2014 12:00:00 eCW2 ([facility] AM EDT Health Care ) [facility] 07/16/2014 12:00:00 eCW2 ([facility] AM EDT Health Care ) [facility] 03/25/2014 12:00:00 eCW2 ([facility] AM EST Health Care ) [facility] 02/24/2014 12:00:00 eCW2 ([facility] AM EDT Health Care ) [facility] 02/04/2014 12:00:00 eCW2 ([facility] AM EDT Health Care ) [facility] 01/16/2014 12:00:00 eCW2 ([facility] AM EDT Health Care ) [facility] 12/09/2013 12:00:00 eCW2 ([facility] AM EDT Health Care ) [facility] 10/28/2013 12:00:00 eCW2 ([facility] AM EDT Health Care ) [facility] 10/28/2013 12[facility]00:00 eCW2 ([facility] AM EDT Health Care ) [facility] 09/05/2013 12:00:00 eCW2 ([facility] AM EDT Health Care ) [facility] 08/21/2013 12:00:00 eCW2 ([facility] AM EDT Health Care ) [facility] 08/05/2013 12:00:00 eCW2 ([facility] AM EDT Health Care ) [facility] 07/11/2013 12:00:00 eCW2 ([facility] AM EST Health Care ) [facility] 06/17/2013 12:00:00 eCW2 ([facility] AM EST Health Care ) [facility] 06/03/2013 12:00:00 eCW2 ([facility] AM EST Health Care ) [facility] 05/29/2013 12:00:00 eCW2 ([facility] AM EST Health Care ) [facility] 04/10/2013 12:00:00 eCW2 ([facility] AM EST Health Care ) [facility] 03/13/2013 12:00:00 eCW2 ([facility] AM EST Health Care ) [facility] 12/17/2012 12:00:00 eCW2 ([facility] AM EDT Health Care ) [facility] 12/17/2012 12:00:00 eCW2 ([facility] AM EDT Health Care ) [facility] 12/17/2012 12:00:00 eCW2 ([facility] AM EDT Health Care ) [facility] 12/02/2012 12:00:00 eCW2 ([facility] AM EDT Health Care ) [facility] 12:00:00 eCW2 ([facility] AM EDT Health Care ) [facility] 09/06/2012 12:00:00 eCW2 ([facility] AM EDT Health Care ) [facility] 07/10/2012 12:00:00 eCW2 ([facility] AM EST Health Care ) [facility] 07/05/2012 12:00:00 eCW2 ([facility] AM EST Health Care ) [facility] 06/20/2012 12:00:00 eCW2 ([facility] AM EST Health Care ) [facility] 06/07/2012 12:00:00 eCW2 ([facility] AM EST Health Care ) [facility] 06/05/2012 12:00:00 eCW2 ([facility] AM EST Health Care ) [facility] 05/09/2012 12:00:00 eCW2 ([facility] AM EST Health Care ) [facility] 04/02/2012 12:00:00 eCW2 ([facility] AM EST Health Care ) [facility] 01/15/2012 12:00:00 eCW2 ([facility] AM EDT Health Care ) [facility] 01/04/2012 12:00:00 eCW2 ([facility] AM EDT Health Care ) [facility] 01/01/2012 12:00:00 eCW2 ([facility] AM EDT Health Care ) [facility] 12/28/2011 12:00:00 eCW2 ([facility] AM EDT Health Care ) [facility] 12/27/2011 12:00:00 eCW2 ([facility] AM EDT Health Care ) [facility] 12/14/2011 12:00:00 [facility] 12/14/2011 12:00:00 eCW2 ([facility] AM EDT Health Care ) [facility] 12/12/2011 12:00:00 eCW2 ([facility] AM EDT Health Care ) [facility] 12/06/2011 12:00:00 eCW2 ([facility] AM EDT Health Care ) [facility] 12/06/2011 12:00:00 eCW2 ([facility] AM EDT Health Care ) [facility] 11/13/2011 12:00:00 eCW2 ([facility] AM EDT Health Care ) [facility] 10/16/2011 12:00:00 eCW2 ([facility] AM EDT Health Care ) [facility] 09/20/2011 12:00:00 eCW2 ([facility] AM EDT Health Care ) [facility] 09/15/2011 12:00:00 eCW2 ([facility] AM EDT Health Care ) [facility] 06/02/2011 12:00:00 eCW2 ([facility] AM EST Health Care ) [facility] 05/03/2011 12:00:00 eCW2 ([facility] AM EST Health Care ) [facility] 04/26/2011 12:00:00 eCW2 ([facility] AM EST Health Care ) [facility] 03/24/2011 12:00:00 eCW2 ([facility] AM EST Health Care ) [facility] 12/30/2010 12:00:00 eCW2 ([facility] AM EDT Health Care ) [facility] 12/28/2010 12:00:00 eCW2 ([facility] AM EDT Health Care ) [facility] 12/28/2010 12:00:00 eCW2 ([facility] AM EDT Health Care ) [facility] 12/22/2010 12:00:00 eCW2 ([facility] AM EDT Health Care ) [facility] 12/21/2010 12:00:00 eCW2 ([facility] AM EDT Health Care ) [facility] 11/29/2010 12:00:00 eCW2 ([facility] AM EDT Health Care ) [facility] 11/22/2010 12:00:00 eCW2 ([facility] AM EDT Health Care ) [facility] 11/18/2010 12:00:00 eCW2 ([facility] AM EDT Health Care ) [facility] 11/18/2010 12:00:00 eCW2 ([facility] AM EDT Health Care ) [facility] 11/17/2010 12:00:00 eCW2 ([facility] AM EDT Health Care ) [facility] 07/26/2010 12:00:00 eCW2 ([facility] AM EDT Health Care ) [facility] 07/15/2010 12:00:00 eCW2 ([facility] AM EST Health Care ) [facility] 04/25/2010 12:00:00 eCW2 ([facility] ) [facility] 01/25/2010 12:00:00 eCW2 ([facility] ) [facility] 01/18/2010 12:00:00 eCW2 ([facility] ) [facility] 12/29/2009 12:00:00 eCW2 ([facility] ) [facility] 07/19/2009 12:00:00 eCW2 ([facility] ) [facility] 05/21/2009 12:00:00 eCW2 ([facility] ) [facility] 03/05/2009 12:00:00 eCW2 ([facility] ) [facility] 01/26/2009 12:00:00 eCW2 ([facility] ) Immunizations Vaccine Date Status Description Data Source(s) No Known Immunizations completed eCW2 ([facility]) Medications Medication Brand Start Product Dose Route Administrative Pharmacy [facility] Indications Reaction Description Data Name Date Form [...] B efore White isolone 2019 ed [facility] (Medrol 12:00: Hospital Dose-[place] 00 AM 4MG Tab*) 4 EST Mg Tab.ds.pk Hydromorpho Hydrom 06/19/ TABLET complet Ever y 4 White ne orphon 2019 ed Hours as [facility] Hydrochlori e Hcl 12:00: needed for Hospital [...] White ne orphon 2019 ed Hours as [facility] Hydrochlori e Hcl 12:00: needed for Hospital [...] B efore White isolone 2018 ed [facility] (Medrol 12:00: Hospital Dose-[place]ristan 00 AM 4MG [...] Ipratropium rol 00 AM MG/3ML [facility] [place] 0.5-2. EDT Care) 0.167 MG/ML 5 (3) Inhalant MG/3ML Solution Ipratropium -Albuterol 0.5-2.5 (3) MG/3ML Albuterol Ipratr 01/24/ 3.0 suspend Ipratrop ium- eCW3 0.833 MG/ML opium- 2018 {ml} ed Albuterol ( [place] / [place] 12:00: 0.5-2.5 (3) Rive r Ipratropium rol 00 AM MG/3ML [facility] [place] 0.5-2. EDT Care) 0.167 MG/ML 5 (3) [...] Ipratropium rol 00 AM MG/3ML [facility] [place] 0.5-2. EDT Care) 0.167 MG/ML 5 (3) [...] Ipratropium rol 00 AM MG/3ML [facility] [place] 0.5-2. EDT Care) 0.167 MG/ML 5 (3) [...] Ipratropium rol 00 AM MG/3ML [facility] [place] 0.5-2. EDT Care) 0.167 MG/ML 5 (3) [...] l with 2017 {tabl ed Codeine #3 ([place] Codeine Codein 12:00: et_as 300-30 MG Ri bailee Phosphate e #3 00 AM _[facility] 30 MG Oral 300-30 EDT ed} Care) Tablet MG [Tylenol with Codeine] Tylenol with Codeine #3 300-30 MG Albuterol Ipratr 12/01/ active Ipratropi um- eCW3 0.833 MG/ML opium- 2016 Albuterol ( [place] / [place] 12:00: 0.5-2.5 (3) Rive r Ipratropium rol 00 AM MG/3ML [facility] [place] 0.5-2. EDT Care) 0.167 MG/ML 5 (3) Inhalant MG/3ML Solution Ipratropium -Albuterol 0.5-2.5 (3) MG/3ML Acetaminoph Tyleno .0 suspend Tyleno l with eCW3 en 300 MG / l with 2017 {tabl ed Codeine #3 ([place] Codeine Codein 12:00: et_as 300-30 MG Ri bailee Phosphate e #3 00 AM [facility] 30 MG Oral 300-30 EDT ed} Care) Tablet MG [Tylenol with Codeine] Tylenol with Codeine #3 300-30 MG Albuterol Ipratr 12/01/ active Ipratropi um- eCW3 0.833 MG/ML opium- 2016 Albuterol ( [place] / [place] 12:00: 0.5-2.5 (3) Rive r Ipratropium rol 00 AM MG/3ML [facility] [place] 0.5-2. EDT Care) 0.167 MG/ML 5 (3) [...] Ipratropium rol 00 AM MG/3ML [facility] [place] 0.5-2. EDT Care) 0.167 MG/ML 5 (3) [...] Ipratropium rol 00 AM MG/3ML [facility] [place] 0.5-2. EDT Care) 0.167 MG/ML 5 (3) Inhalant MG/3ML Solution Ipratropium -Albuterol 0.5-2.5 (3) MG/3ML Albuterol Ipratr 11/16/ suspend Ipratrop ium- eCW3 0.833 MG/ML opium- 2017 ed Albuterol ( [place] / [place] 12:00: 0.5-2.5 (3) Rive r Ipratropium rol 00 AM MG/3ML [facility] [place] 0.5-2. EDT Care) 0.167 MG/ML 5 (3) [...] Ipratropium rol 00 AM mg/3ml [facility] [place] 0.5-2. EST Care) 0.167 MG/ML 5 (3) Inhalant mg/3ml Solution Ipratropium -Albuterol 0.5-2.5 (3) mg/3ml 120 ACTUAT COMBIV 2.0 suspend COMBIVE NT eCW3 Albuterol ENT 2016 {puff ed RESPIMAT ([place] 0.1 RESPIM 12:00: } 20-100 [place] MG/ACTUAT / AT 00 AM mcg/act Heal th Ipratropium 20-100 EST Care) [place] mcg/ac 0.02 t MG/ACTUAT Metered Dose Inhaler [Combivent] COMBIVENT RESPIMAT 20-100 mcg/act 120 ACTUAT COMBIV 2.0 suspend COMBIVE NT eCW3 Albuterol ENT 2017 {puff ed RESPIMAT ([place] 0.1 RESPIM 12:00: } 20-100 [place] MG/ACTUAT / AT 00 AM mcg/act Heal th Ipratropium 20-100 EST Care) [place] mcg/ac 0.02 t MG/ACTUAT Metered Dose Inhaler [Combivent] COMBIVENT RESPIMAT 20-100 mcg/act Albuterol Ipratr 07/03/ suspend Ipratrop ium- eCW3 0.833 MG/ML opium- 2017 ed Albuterol ( [place] / [place] 12:00: 0.5-2.5 (3) Rive r Ipratropium rol 00 AM mg/3ml [facility] [place] 0.5-2. EST Care) 0.167 MG/ML 5 (3) [...] Dextrometho Promet .0 suspend Promet hazine eCW3 [facility] 3 2015 {ml_a ed -DM 6.25-15 ([facility] [place] MG/ML / -DM 12:00: s_nee MG/5ML [place] Promethazin 6.25-1 00 AM ded} Healt h e 5 EDT Care) Hydrochlori MG/5ML de 1.25 MG/ML Oral Solution Promethazin e-DM 6.25-15 MG/5ML Dextrometho Promet .0 suspend Promet hazine eCW3 [facility] 3 2015 {ml_a ed -DM 6.25-15 (H [...] ed s ([place] 12:00: [place] 00 AM [facility] EDT Care) Naproxen Naprox TABLET 500 complet Twice A D ay [place] 500 MG Oral en mg ed [place] Tablet ([facility] [Naprosyn] syn Naproxen Tablet (Naprosyn *) 500 [...] 300 MG Oral ntin mg ed Daily [place] Capsule (Neuro [facility] [Neurontin] ntin Gabapentin Capsul (Neurontin e*) Capsule*) 300 Mg 300 Mg Cap Cap Ensure Ensure active Ensure eCW3 Enlive - Enlive Enlive - ([facility]) Unknown complet eCW2 Medications ed ([facility]) Albuterol Ipratr 3.0 active Ipratropium - eCW3 0.833 MG/ML opium- {ml} Albuterol ( [place] / [place] 0.5-2.5 (3) [place] Ipratropium rol MG/3ML [facility] [place] 0.5-2. Care) 0.167 MG/ML 5 (3) Inhalant [...] 20 ug complet [place] Albuterol opium/ ed [place] 0.1 [facility] MG/ACTUAT / rol Ipratropium Sulfat [place] e 0.02 (Combi MG/ACTUAT vent Metered Respim Dose at Inhaler Inhal [Combivent] [place]) Ipratropium 20 /Albuterol Mcg-10 Sulfate 0 (Combivent Mcg/Ac Respimat tuatio Inhal n [place]) 20 Aer.w. Mcg-100 adap Mcg/Actuati on Aer.w.adap [...] complet Twice A Day [place] Xinafoate/F ed [facility] (Advair 250/50 Diskus*) 250 Mcg-50 Mcg/Dose Blst.w.dev 60 ACTUAT Advair 1.0 suspend Advair eCW 3 Fluticasone Diskus {puff ed Diskus ([place] propionate 250-50 } 250-50 [place] 0.25 MCG/DO MCG/DOSE Health MG/ACTUAT / SE Care) salmeterol 0.05 MG/ACTUAT Dry Powder Inhaler [Advair] Advair Diskus 250-50 MCG/DOSE Naproxen Naprox TABLET 500 complet Twice A D ay [place] 500 MG Oral en mg ed [place] Tablet ([facility] [Naprosyn] syn Naproxen Tablet (Naprosyn *) 500 Tablet*) Mg 500 Mg Tablet Tablet, 500 , 500 Mg Oral Mg Oral 120 ACTUAT Ipratr AEROSOL 20 ug complet [place] Albuterol opium/ ed [place] 0.1 [facility] MG/ACTUAT / rol Ipratropium Sulfat [place] e 0.02 (Combi MG/ACTUAT vent Metered Respim Dose at Inhaler Inhal [Combivent] [place]) Ipratropium 20 /Albuterol Mcg-10 Sulfate 0 (Combivent Mcg/Ac Respimat tuatio Inhal n [place]) 20 Aer.w. Mcg-100 adap Mcg/Actuati on Aer.w.adap Albuterol Ipratr 3.0 active Ipratropium - eCW3 0.833 MG/ML opium- {ml} Albuterol ( [place] / [place] 0.5-2.5 (3) [place] Ipratropium rol MG/3ML [facility] [place] 0.5-2. Care) 0.167 MG/ML 5 (3) Inhalant MG/3ML Solution Ipratropium -Albuterol 0.5-2.5 (3) MG/3ML Salmeterol 1 complet Twice A Day [place] Xinafoate/F ed [facility] (Advair 250/50 Diskus*) 250 Mcg-50 Mcg/Dose Blst.w.dev [...] 300 MG Oral ntin mg ed Daily [place] Capsule (Neuro [facility] [Neurontin] ntin Gabapentin Capsul (Neurontin e*) Capsule*) [...] Ensure eCW3 Enlive - Enlive Enlive - ([facility] on - [facility]) Acetaminoph Oxycod TABLET 1 complet Every [...] name Policy type Policy ID Covered Covered green party's Policy P jessica / Coverage green party ID relationship to [facility] orm[facility] type [place] MEDICAID [id number] SP [id number] SUSIE [id number] SP [id number] 100 MEDICARE ADV PLAN SIENA MEDICARE [id number] SP [id number] MEDICAID OF [id number] 1 [id number] [place] CARE [id number] 1 [id number] [place]IE [id number] 1 [id number] MEDICARE ADVANTAGE MEDICAID [id number] PT [id number] SUSIE [id number] PT [id number] 100 MEDICARE ADVANTAGE BETTER [id number] PT [id number] 100 HEALTH/FIDELI S MEDICARE [id number] PT [id number] A Problems, Conditions, and Diagnoses Code Display Name Description Problem Type Effective Data Sour ce(s) Dates 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.9 Nutritional Nutritional Problem 04/21/2019 eCW3 ([place] deficiency deficiency 12:00:00 AM [facility] [place] EST Care) M54.40 Lumbago with Lumbago with Problem 04/10/2019 eCW3 ([place] sciatica, sciatica, 12:00:00 AM [facility] [place] unspecified side unspecified side EST Ca re) R63.0 Poor appetite Poor appetite Problem 04/10/2019 eCW3 ([facility] [place] 12:00:00 AM [facility] [place] EST Care) G89.29 Other chronic pain Other chronic pain Problem 9 eCW3 ([place] 12:00:00 AM [facility] [place] EST Care) H62.40 Otitis externa in Otitis externa in Problem 04/10/2019 eCW3 ([place] other diseases other diseases 12:00:00 AM [facility] [place] classified classified EST Care) elsewhere, elsewhere, unspecified ear unspecified ear M54.32 Sciatica of left Sciatica of left Problem 12/13/2018 eC W3 ([place] side side 12:00:00 AM [facility] [place] EDT Care) M54.31 Sciatica, right Sciatica, right [...] Problem 06/20/2017 eCW2 ( [place] 12:00:00 AM [facility] [place] EST Care) J44.9 COPD - Chronic COPD (chronic Problem 04/05/2017 eCW3 ([place] obstructive obstructive 12:00:00 AM [place] [facility] h pulmonary disease pulmonary disease) EST Care) J44.9 COPD - Chronic COPD (chronic Problem 04/05/2017 eCW2 ([place] obstructive obstructive 12:00:00 AM [facility] disease[facility] Care) 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 Problem 12/01/2016 eCW3 ([place] disc disorder 12:00:00 AM [facility] [place] EDT Care) 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 Problem 12/01/2016 eCW2 ([place] disc disorder 12:00:00 AM [facility] [place] EDT Care) K90.9 Malabsorption Malabsorption Problem 11/14/2016 eCW3 ([facility] [place] 12:00:00 AM [facility] [place] EDT Care) K90.9 Malabsorption Malabsorption Problem 11/14/2016 eCW2 ([facility] [place] 12:00:00 AM [facility] [place] EDT Care) Z72.0 Tobacco abuse Tobacco abuse Problem 03/01/2016 eCW3 ([facility] [place] 12:00:00 AM [facility] [place] EDT Care) Z78.9 Patient has Patient has Problem 03/01/2016 eCW3 ([place] healthcare proxy healthcare proxy 12:00:00 AM [facility] EDT Care) H91.91 Hearing loss, Hearing loss, Problem 03/01/2016 eCW3 ([place] right right 12:00:00 AM [facility] [place] EDT Care) H10.13 Allergic Allergic Problem 03/01/2016 eCW3 ([place] conjunctivitis, conjunctivitis, 12:00:00 AM [facility] Health bilateral bilateral EDT Care) Z78.9 Patient has Patient has Problem 03/01/2016 eCW2 ([place] healthcare proxy healthcare proxy 12:00:00 AM R [facility] EDT Care) H10.13 Allergic Allergic Problem 03/01/2016 eCW2 ([place] conjunctivitis, conjunctivitis, 12:00:00 AM [facility] Health bilateral bilateral EDT Care) H91.91 Hearing loss, Hearing loss, Problem 03/01/2016 eCW2 ([place] right right 12:00:00 AM [facility] [place] EDT Care) Z72.0 Tobacco abuse Tobacco abuse [...] EST Care) R26.9 Unspecified R26.9 Diagnosis 06/14/2018 [place] abnormalities of 10:58:00 AM Hospita l gait and mobility EST Z86.19 Personal history Z86.19 Diagnosis 06/14/2018 [place] of other 10:58:00 AM Hospital infectious and EST parasitic diseases F17.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.200 Diagnosis 06/14/2018 [place] dependence, 10:58:00 AM Hospital unspecified, EST uncomplicated J44.9 Chronic J44.9 Diagnosis 06/14/2018 [place] obstructive 10:58:00 AM Hospital pulmonary disease, EST unspecified M25.78 Osteophyte, M25.78 Diagnosis 06/14/2018 [place] vertebrae 10:58:00 AM Hospital EST M48.02 Spinal stenosis, M48.02 Diagnosis 06/14/2018 [place] cervical region 10:58:00 AM Hospital EST M50.01 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, high EST cervical region Surgeries/Procedures Procedure Description Date Indications Data Source(s) Injection, ketorolac 12/13/2018 eCW3 ([facility] tromethamine, per 15 12:00:00 AM Health Care) mg EDT Oral medication 09/16/2018 eCW3 ([place] administration, 12:00:00 AM Health Care) direct observation EDT X-ray of cervical X-ray of cervical 06/15/2018 [place] spine, flexion and spine, flexion and 12:00:00 AM Hos pital extension views only extension views only EST X-ray of cervical X-ray of cervical 06/15/2018 [place] spine, flexion and spine, flexion and 12:00:00 AM Hos pital extension views only extension views only EST X-ray of cervical X-ray of cervical 06/13/2018 [place] spine, flexion and spine, flexion and 12:00:00 AM Hos pital extension views only extension views only EST Fluoroscopy with Fluoroscopy with 06/13/2018 Rona schumacher C-arm for 60 minutes C-arm for 60 minutes 12:00:00 AM Hospital EST Fusion, spine, Fusion, spine, 06/13/2018 [place] cervical, anterior cervical, anterior 12:00:00 AM Hos pital approach approach EST X-ray of cervical X-ray of cervical 06/13/2018 [place] spine, flexion and spine, flexion and 12:00:00 AM Hos pital extension views only extension views only EST Fluoroscopy with Fluoroscopy with 06/13/2018 Rona schumacher C-arm for 60 minutes C-arm for 60 minutes 12:00:00 AM Hospital EST Fusion, spine, Fusion, spine, 06/13/2018 [place] cervical, anterior cervical, anterior 12:00:00 AM Hos pital approach approach EST No Known procedures No Known procedures e 2 ([facility]) Results ID Date Data Source [id number] 12/30/2019 04:30:00 AM EDT [facility] Name Value Range Interpretation Description Data Sup porting Code Source(s) Document(s ) SARS [facility] coronavirus 2 RNA This lab was ordered by [facility] and reported by [facility]. ID Date Data Source [id number] 06/16/2018 05:53:00 AM [facility] Name Value Range Interpretation Description Data Sup porting Code Source(s) Document(s ) Calcium 8.7 mg/dL 8.3-10.6 CALCIUM [place] [[facility] e] in Serum or Plasma ID Date Data Source [id number] 06/16/2018 05:53:00 AM [facility] Name Value Range Interpretation Description Data Sup porting Code Source(s) Document(s ) Urea 14.1 6.0-20.0 BUN/CREATININE [place] nitrogen/C RATIO Hospital reatinine [Mass Ratio] in Serum or Plasma ID Date Data Source [id number] 06/16/2018 05:53:00 AM [facility] Name Value Range Interpretation Description Data Sup porting Code Source(s) Document(s ) Creatinine 0.8 0.9-1.3 Below low normal CREATININE [facility] [Mass/volume] mg/dL Hospital in Serum or Plasma ID Date Data Source [id number] 06/16/2018 05:53:00 AM [facility] Hospital Name Value Range Interpretation Description Data Sup porting Code Source(s) Document(s ) Urea 12 mg/dL 6-20 BLOOD UREA [place] nitrogen NITROGEN Hospital [Mass/volume ] in Serum or Plasma ID Date Data Source [id number] 06/16/2018 05:53:00 AM [facility] Hospital Name Value Range Interpretation Code Description Data Vandana rce(s) Supporting Document(s ) Anion gap in 12 6-18 ANION GAP [place] Serum or Hospital Plasma ID Date Data Source [id number] 06/16/2018 05:53:00 AM [facility] Name Value Range Interpretation Description Data Sup porting Code Source(s) Document(s ) Carbon 30 mmol/L 23-31 CARBON DIOXIDE [place] dioxide, Hospital total [Moles/vol ume] in Serum or Plasma ID Date Data Source [id number] 06/16/2018 05:53:00 AM [facility] Hospital Name Value Range Interpretation Description Data Sup porting Code Source(s) Document(s ) Chloride 100 98-107 CHLORIDE [place] [Moles/volum mmol/L Hospital e] in Serum or Plasma ID Date Data Source [id number] 06/16/2018 05:53:00 AM [facility] Hospital Name Value Range Interpretation Description Data Sup porting Code Source(s) Document(s ) Potassium 4.8 3.5-5.3 POTASSIUM [place] [Moles/volume mmol/L Hospital ] in Serum or Plasma ID Date Data Source [id number] 06/16/2018 05:53:00 AM [facility] Hospital Name Value Range Interpretation Description Data Sup porting Code Source(s) Document(s ) Sodium 137 136-145 SODIUM [place] [Moles/vol mmol/L Hospital ume] in Serum or Plasma ID Date Data Source [id number] 06/16/2018 05:53:00 AM EST [facility] Name Value Range Interpretation Description Data Sup porting Code Source(s) Document(s ) Glucose 120 mg/dL 74-106 Above high normal GLUCOSE [place] [[facility] e] in Serum or Plasma ID Date Data Source [id number] 06/16/2018 05:53:00 AM [facility] Value Range Interpretation Code Description Data Vandana rce(s) Supporting Document(s ) 0.0 % 0-0.2 NUCLEATED RBCS [place] (AUTO DIFF%)DIS Hospital ID Date Data Source [id number] 06/16/2018 05:53:00 AM [facility] Value Range Interpretation Description Data Sup porting Code Source(s) Document(s ) Differential MANUAL DIFF TYPE [place] cell count Hospital method - Blood ID Date Data Source [id number] 06/16/2018 05:53:00 AM [facility] Value Range Interpretation Description Data Sup porting Code Source(s) Document(s ) Cells 100 DIFF CELLS [place] Counted COUNTED Hospital Total [#] in Blood ID Date Data Source [id number] 06/16/2018 05:53:00 AM [facility] Value Range Interpretation Code Description Data Vandana rce(s) Supporting Document(s ) NORMAL PLATELET COMMENT [place] [facility] ID Date Data Source [id number] 06/16/2018 05:53:00 AM [facility] Value Range Interpretation Code Description Data Vandana rce(s) Supporting Document(s ) OCC SCHISTOCYTES [facility] ID Date Data Source [id number] 06/16/2018 05:53:00 AM EST [facility] Value Range Interpretation Code Description Data Vandana rce(s) Supporting Document(s ) OCC ELLIPTOCYTES [facility] ID Date Data Source [id number] 06/16/2018 05:53:00 AM EST [facility] Name Value Range Interpretation Code Description Data Vandana rce(s) Supporting Document(s ) OCC TARGET CELLS [facility] ID Date Data Source [id number] 06/16/2018 05:53:00 AM EST [facility] Name Value Range Interpretation Code Description Data Vandana rce(s) Supporting Document(s ) OCC OVALOCYTES [facility] ID Date Data Source [id number] 06/16/2018 05:53:00 AM EST [facility] Name Value Range Interpretation Code Description Data Vandana rce(s) Supporting Document(s ) OCC POLYCHROMASIA [facility] ID Date Data Source [id number] 06/16/2018 05:53:00 AM EST [facility] Name Value Range Interpretation Code Description Data Vandana rce(s) Supporting Document(s ) OCC MICROCYTOSIS [facility] ID Date Data Source [id number] 06/16/2018 05:53:00 AM EST [facility] Name Value Range Interpretation Code Description Data Vandana rce(s) Supporting Document(s ) OCC POIKILOCYTOSIS [facility] ID Date Data Source [id number] 06/16/2018 05:53:00 AM EST [facility] Name Value Range Interpretation Code Description Data Vandana rce(s) Supporting Document(s ) OCC ANISOCYTOSIS [facility] ID Date Data Source [id number] 06/16/2018 05:53:00 AM [facility] Hospital Name Value Range Interpretation Description Data Sup porting Code Source(s) Document(s ) Monocytes 1.02 0.0-1.0 Above high normal MONOCYTES (MAN [place] [#/volume] 10*3/uL DIFF #) Hospital in Blood by Manual count ID Date Data Source [id number] 06/16/2018 05:53:00 AM [facility] Name Value Range Interpretation Description Data Sup porting Code Source(s) Document(s ) Lymphocytes 0.60 1.2-3.5 Below low normal LYMPHOCYTES [facility] [#/volume] in 10*3/uL (MAN DIFF #) [place] Blood by Hospital Manual count ID Date Data Source [id number] 06/16/2018 05:53:00 AM [facility] Name Value Range Interpretation Description Data Sup porting Code Source(s) Document(s ) Neutrophils 6.89 1.5-6.6 Above high normal NEUTROPHILS [facility] [#/volume] in 10*3/uL (MAN DIFF #) [place] Blood by [facility] Manual count ID Date Data Source [id number] 06/16/2018 05:53:00 AM [facility] Value Range Interpretation Description Data Sup porting Code Source(s) Document(s ) Monocytes/100 12 % 2.0-12.0 MONOCYTES [place] leukocytes in Hospital Blood by Manual count ID Date Data Source [id number] 06/16/2018 05:53:00 AM [facility] Value Range Interpretation Description Data Sup porting Code Source(s) Document(s ) Lymphocytes/10 7 % 20.0-48.0 Below low normal LYMPHOCYTES [place] 0 leukocytes Hospital in Blood by Manual count ID Date Data Source [id number] 06/16/2018 05:53:00 AM [facility] Name Value Range Interpretation Description Data Sup porting Code Source(s) Document(s ) Band form 1 % 0-6.0 BANDS [place] neutrophils/100 Hospital leukocytes in Blood ID Date Data Source [id number] 06/16/2018 05:53:00 AM EST [facility] Name Value Range Interpretation Description Data Sup porting Code Source(s) Document(s ) Neutrophils/10 80 % 40.0-75. Above high normal SEGMENTED [place] 0 leukocytes 0 NEUTROPHILS Hospital in Blood by Manual count ID Date Data Source [id number] 06/16/2018 05:53:00 AM [facility] Name Value Range Interpretation Description Data Sup porting Code Source(s) Document(s ) Platelet 10.2 fL 9.6-12.8 MEAN PLATELET [place] mean volume VOLUME Hospital [Entitic volume] in Blood by Automated count ID Date Data Source [id number] 06/16/2018 05:53:00 AM [facility] Name Value Range Interpretation Description Data Sup porting Code Source(s) Document(s ) Platelets 193 150-400 PLATELET COUNT [place] [#/volume] 10*3/uL Hospital in Blood by Automated count ID Date Data Source [id number] 06/16/2018 05:53:00 AM [facility] Name Value Range Interpretation Description Data Sup porting Code Source(s) Document(s ) Erythrocyte 14.2 % 11.5-14. RED CELL [facility] distribution 5 DISTRIBUTION [place] width [Ratio] WIDTH Hospital by Automated count ID Date Data Source [id number] 06/16/2018 05:53:00 AM [facility] Name Value Range Interpretation Description Data Sup porting Code Source(s) Document(s ) Erythrocyte mean 32.6 31.0-36. MEAN [place] corpuscular g/dL 0 CORPUSCULAR [place] hemoglobin HGB CONCEN Hospital concentration [Mass/volume] by Automated count ID Date Data Source [id number] 06/16/2018 05:53:00 AM [facility] Name Value Range Interpretation Description Data Sup porting Code Source(s) Document(s ) Erythrocyte 26.8 pg 27.0-34. Below low normal MEAN [place] mean 0 CORPUSCULAR [place] corpuscular HEMOGLOBIN Hospital hemoglobin [Entitic mass] by Automated count ID Date Data Source [id number] 06/16/2018 05:53:00 AM [facility] Value Range Interpretation Description Data Sup porting Code Source(s) Document(s ) Erythrocyte 82.3 fL 80.0-96. MEAN [place] mean 0 CORPUSCULAR [place] corpuscular VOLUME Hospital volume [Entitic volume] by Automated count ID Date Data Source [id number] 06/16/2018 05:53:00 AM [facility] Value Range Interpretation Description Data Sup porting Code Source(s) Document(s ) Hematocrit 33.4 % 42.0-50.0 Below low normal HEMATOCRIT [place] [facility] [Volume Hospital Fraction] of Blood by Automated count ID Date Data Source [id number] 06/16/2018 05:53:00 AM [facility] Value Range Interpretation Description Data Sup porting Code Source(s) Document(s ) Hemoglobin 10.9 13.6-17. Below low normal HEMOGLOBIN [place] [Mass/volume] g/dL 0 Hospital in Blood ID Date Data Source [id number] 06/16/2018 05:53:00 AM [facility] Value Range Interpretation Description Data Sup porting Code Source(s) Document(s ) Erythrocytes 4.06 4.50-5.9 Below low normal RED BLOOD [place] [#/volume] in 10*6/uL 0 CELL COUNT [facility] Blood by Hospital Automated count ID Date Data Source [id number] 06/16/2018 05:53:00 AM [facility] Value Range Interpretation Description Data Sup porting Code Source(s) Document(s ) Leukocytes 8.5 4.0-10.0 WHITE BLOOD [place] [#/volume] in 10*3/uL CELL COUNT [facility] Blood by Automated count ID Date Data Source [id number] 06/16/2018 05:53:00 AM [facility] Hospital Name Value Range Interpretation Description Data Sup porting Code Source(s) Document(s ) Calcium 8.7 mg/dL 8.3-10.6 CALCIUM [place] [[facility] Hospital e] in Serum or Plasma ID Date Data Source [id number] 06/16/2018 05:53:00 AM [facility] Hospital Name Value Range Interpretation Description Data Sup porting Code Source(s) Document(s ) Urea 14.1 6.0-20.0 BUN/CREATININE [place] nitrogen/C RATIO Hospital reatinine [Mass Ratio] in Serum or Plasma ID Date Data Source [id number] 06/16/2018 05:53:00 AM [facility] Name Value Range Interpretation Description Data Sup porting Code Source(s) Document(s ) Creatinine 0.8 0.9-1.3 Below low normal CREATININE [place] [facility] [Mass/volume] mg/dL Hospital in Serum or Plasma ID Date Data Source [id number] 06/16/2018 05:53:00 AM [facility] Hospital Name Value Range Interpretation Description Data Sup porting Code Source(s) Document(s ) Urea 12 mg/dL 6-20 BLOOD UREA [place] nitrogen NITROGEN Hospital [Mass/volume ] in Serum or Plasma ID Date Data Source [id number] 06/16/2018 05:53:00 AM [facility] Hospital Name Value Range Interpretation Code Description Data Vandana rce(s) Supporting Document(s ) Anion gap in 12 6-18 ANION GAP [place] Serum or Hospital Plasma ID Date Data Source [id number] 06/16/2018 05:53:00 AM [facility] Name Value Range Interpretation Description Data Sup porting Code Source(s) Document(s ) Carbon 30 mmol/L 23-31 CARBON DIOXIDE [place] dioxide, Hospital total [Moles/vol ume] in Serum or Plasma ID Date Data Source [id number] 06/16/2018 05:53:00 AM EST [facility] Name Value Range Interpretation Description Data Sup porting Code Source(s) Document(s ) Chloride 100 98-107 CHLORIDE [place] [Moles/volum mmol/L Hospital e] in Serum or Plasma ID Date Data Source [id number] 06/16/2018 05:53:00 AM EST [facility] Name Value Range Interpretation Description Data Sup porting Code Source(s) Document(s ) Potassium 4.8 3.5-5.3 POTASSIUM [place] [Moles/volume mmol/L Hospital ] in Serum or Plasma ID Date Data Source [id number] 06/16/2018 05:53:00 AM [facility] Hospital Name Value Range Interpretation Description Data Sup porting Code Source(s) Document(s ) Sodium 137 136-145 SODIUM [place] [Moles/vol mmol/L Hospital ume] in Serum or Plasma ID Date Data Source [id number] 06/16/2018 05:53:00 AM [facility] Hospital Name Value Range Interpretation Description Data Sup porting Code Source(s) Document(s ) Glucose 120 mg/dL 74-106 Above high normal GLUCOSE [place] [Mass[facility]volum Hospital e] in Serum or Plasma ID Date Data Source [id number] 06/16/2018 05:53:00 AM [facility] Hospital Name Value Range Interpretation Code Description Data Vandana rce(s) Supporting Document(s ) 0.0 % 0-0.2 NUCLEATED RBCS [facility] (AUTO DIFF[facility] ID Date Data Source [id number] 06/16/2018 05:53:00 AM EST [facility] Name Value Range Interpretation Description Data Sup porting Code Source(s) Document(s ) Differential MANUAL DIFF TYPE [facility] cell count [facility] method - Blood ID Date Data Source [id number] 06/16/2018 05:53:00 AM EST [facility] Name Value Range Interpretation Description Data Sup porting Code Source(s) Document(s ) Cells 100 DIFF CELLS [facility]ED [facility] Total [#] in Blood ID Date Data Source [id number] 06/16/2018 05:53:00 AM EST [facility] Name Value Range Interpretation Code Description Data Vandana rce(s) Supporting Document(s ) NORMAL PLATELET COMMENT [facility] ID Date Data Source [id number] 06/16/2018 05:53:00 AM EST [facility] Name Value Range Interpretation Code Description Data Vandana rce(s) Supporting Document(s ) OCC SCHISTOCYTES [facility] ID Date Data Source [id number] 06/16/2018 05:53:00 AM EST [facility] Name Value Range Interpretation Code Description Data Vandana rce(s) Supporting Document(s ) OCC ELLIPTOCYTES [facility] ID Date Data Source [id number] 06/16/2018 05:53:00 AM EST [facility] Name Value Range Interpretation Code Description Data Vandana rce(s) Supporting Document(s ) OCC TARGET CELLS [facility] ID Date Data Source [id number] 06/16/2018 05:53:00 AM EST [facility] Name Value Range Interpretation Code Description Data Vandana rce(s) Supporting Document(s ) OCC OVALOCYTES [facility] ID Date Data Source [id number] 06/16/2018 05:53:00 AM EST [facility] Name Value Range Interpretation Code Description Data Vandana rce(s) Supporting Document(s ) OCC POLYCHROMASIA [facility] ID Date Data Source [id number] 06/16/2018 05:53:00 AM EST [facility] Name Value Range Interpretation Code Description Data Vandana rce(s) Supporting Document(s ) OCC MICROCYTOSIS [facility] ID Date Data Source [id number] 06/16/2018 05:53:00 AM [facility] Name Value Range Interpretation Code Description Data Vandana rce(s) Supporting Document(s ) OCC POIKILOCYTOSIS [facility] ID Date Data Source [id number] 06/16/2018 05:53:00 AM [facility] Name Value Range Interpretation Code Description Data Vandana rce(s) Supporting Document(s ) OCC ANISOCYTOSIS [facility] ID Date Data Source [id number] 06/16/2018 05:53:00 AM [facility] Value Range Interpretation Description Data Sup porting Code Source(s) Document(s ) Monocytes 1.02 0.0-1.0 Above high normal MONOCYTES (MAN [facility] [#/volume] 10*3/uL DIFF #) Hospital in Blood by Manual count ID Date Data Source [id number] 06/16/2018 05:53:00 AM [facility] Value Range Interpretation Description Data Sup porting Code Source(s) Document(s ) Lymphocytes 0.60 1.2-3.5 Below low normal LYMPHOCYTES [facility] [#/volume] in 10*3/uL (MAN DIFF #) [facility] Manual count ID Date Data Source [id number] 06/16/2018 05:53:00 AM [facility] Hospital Name Value Range Interpretation Description Data Sup porting Code Source(s) Document(s ) Neutrophils 6.89 1.5-6.6 Above high normal NEUTROPHILS [facility] [#/volume] in 10*3/uL (MAN DIFF #) [facility] Manual count ID Date Data Source [id number] 06/16/2018 05:53:00 AM [facility] Name Value Range Interpretation Description Data Sup porting Code Source(s) Document(s ) Monocytes/100 12 % 2.0-12.0 MONOCYTES [facility] leukocytes in Hospital Blood by Manual count ID Date Data Source [id number] 06/16/2018 05:53:00 AM [facility] Name Value Range Interpretation Description Data Sup porting Code Source(s) Document(s ) Lymphocytes/10 7 % 20.0-48.0 Below low normal LYMPHOCYTES [facility] 0 leukocytes Hospital in Blood by Manual count ID Date Data Source [id number] 06/16/2018 05:53:00 AM [facility] Name Value Range Interpretation Description Data Sup porting Code Source(s) Document(s ) Band form 1 % 0-6.0 BANDS [facility] neutrophils/100 Hospital leukocytes in Blood ID Date Data Source [id number] 06/16/2018 05:53:00 AM [facility] Name Value Range Interpretation Description Data Sup porting Code Source(s) Document(s ) Neutrophils/10 80 % 40.0-75. Above high normal SEGMENTED [facility] 0 leukocytes 0 NEUTROPHILS Hospital in Blood by Manual count ID Date Data Source [id number] 06/16/2018 05:53:00 AM [facility] Name Value Range Interpretation Description Data Sup porting Code Source(s) Document(s ) Platelet 10.2 fL 9.6-12.8 MEAN PLATELET [facility] mean volume VOLUME Hospital [Entitic volume] in Blood by Automated count ID Date Data Source [id number] 06/16/2018 05:53:00 AM [facility] Name Value Range Interpretation Description Data Sup porting Code Source(s) Document(s ) Platelets 193 150-400 PLATELET COUNT [facility] [#/volume] 10*3/uL Hospital in Blood by Automated count ID Date Data Source [id number] 06/16/2018 05:53:00 AM [facility] Name Value Range Interpretation Description Data Sup porting Code Source(s) Document(s ) Erythrocyte 14.2 % 11.5-14. RED CELL [facility] distribution 5 DISTRIBUTION [facility] width [Ratio] WIDTH Hospital by Automated count ID Date Data Source [id number] 06/16/2018 05:53:00 AM [facility] Value Range Interpretation Description Data Sup porting Code Source(s) Document(s ) Erythrocyte mean 32.6 31.0-36. MEAN White corpuscular g/dL 0 CORPUSCULAR [facility] hemoglobin HGB CONCEN Hospital concentration [Mass/volume] by Automated count ID Date Data Source [id number] 06/16/2018 05:53:00 AM [facility] Value Range Interpretation Description Data Sup porting Code Source(s) Document(s ) Erythrocyte 26.8 pg 27.0-34. Below low normal MEAN [facility] mean 0 CORPUSCULAR [facility] corpuscular HEMOGLOBIN Hospital hemoglobin [Entitic mass] by Automated count ID Date Data Source [id number] 06/16/2018 05:53:00 AM [facility] Value Range Interpretation Description Data Sup porting Code Source(s) Document(s ) Erythrocyte 82.3 fL 80.0-96. MEAN [facility] mean 0 CORPUSCULAR [facility] corpuscular VOLUME Hospital volume [Entitic volume] by Automated count ID Date Data Source [id number] 06/16/2018 05:53:00 AM [facility] Name Value Range Interpretation Description Data Sup porting Code Source(s) Document(s ) Hematocrit 33.4 % 42.0-50.0 Below low normal HEMATOCRIT [place] [facility] [Volume Hospital Fraction] of Blood by Automated count ID Date Data Source [id number] 06/16/2018 05:53:00 AM [facility] Name Value Range Interpretation Description Data Sup porting Code Source(s) Document(s ) Hemoglobin 10.9 13.6-17. Below low normal HEMOGLOBIN [facility] [place] [facility] [Mass/volume] g/dL 0 Hospital in Blood ID Date Data Source [id number] 06/16/2018 05:53:00 AM [facility] Name Value Range Interpretation Description Data Sup porting Code Source(s) Document(s ) Erythrocytes 4.06 4.50-5.9 Below low normal RED BLOOD [facility] [#/volume] in 10*6/uL 0 CELL COUNT [facility] Automated count ID Date Data Source [id number] 06/16/2018 05:53:00 AM [facility] Name Value Range Interpretation Description Data Sup porting Code Source(s) Document(s ) Leukocytes 8.5 4.0-10.0 WHITE BLOOD [facility] [#/volume] in 10*3/uL CELL COUNT Hospital Blood by Automated count ID Date Data Source [id number] 06/13/2018 05:03:00 PM [facility] Stage Driver: ROSSANA ART NT Name Value Range Interpretation Description Data Sup porting Code Source(s) Document(s ) Glucose 106 74-106 METER GLUCOSE [facility] [Mass/volume] mg/dL Hospital in Capillary blood by Glucometer ID Date Data Source [id number] 06/13/2018 05:03:00 PM [facility] Stage Driver: ROSSANA ART NT Name Value Range Interpretation Description Data Sup porting Code Source(s) Document(s ) Glucose 106 74-106 METER GLUCOSE [facility] [Mass/volume] mg/dL Hospital in Capillary blood by Glucometer Procedure Social History Code Duration Value Status Description Data Source(s ) Smoking 2019 Former Smoker completed Former Smoker eCW3 ([facility] 12:00:00 AM EDT [facility]) Smoking 2019 Former Smoker completed Former Smoker eCW3 ([facility] 12:00:00 AM EDT [facility]) Former Smoker completed Former Smoker eCW3 ([facility]) Former Smoker completed Former Smoker eCW3 ([facility]) Smoking Unknown if ever completed Unknown if ever Ernesto Gutierrez smoked [facility] Smoking Unknown if ever completed Unknown if ever eCW2 ([facility]) Smoking Ex-smoker completed Ex-smoker (finding) [facility] (finding) [facility] Smoking Ex-smoker completed Ex-smoker (finding) [facility] (finding) [facility] Vital Signs ID Date Data Source UNK Name Value Range Interpretation Code Description Data Source(s) Diastolic blood 85 mm[Hg] 85 mm[Hg] eCW3 ([facility]) Systolic blood 121 mm[Hg] 121 mm[Hg] eCW3 ([facility]) Body temperature 98.7 [degF] 98.7 [degF] eCW3 ( [facility]) Body mass index 16.21 kg/m2 16.21 kg/m2 eCW3 ([facility] (BMI) [Ratio] [facility]) Body weight 102 [lb_av] 102 [lb_av] eCW3 ([facility]) Body height 66.5 [in_i] 66.5 [in_i] eCW3 ([facility]) Diastolic blood 65 mm[Hg] 65 mm[Hg] eCW3 ([facility]) Systolic blood 106 mm[Hg] 106 mm[Hg] eCW3 ([facility]) Body temperature 98.5 [degF] 98.5 [degF] eCW3 ( [facility]) Body height 66.5 [in_i] 66.5 [in_i] eCW3 ([facility]) Patient Treatment Plan of Care Planned Activity Planned Date Details Description Data Source (s) 28 ACTUAT tiotropium 0.0025 10/02/2019 eCW3 ([facility] MG/ACTUAT Metered Dose 12:00:00 AM [facility]) Inhaler [Spiriva] 24 HR Nicotine 0.292 MG/HR 07/30/2019 e CW3 ([facility] Transdermal Patch 12:00:00 AM [facility]) 120 ACTUAT Budesonide 0.16 07/24/2019 e CW3 ([place] MG/ACTUAT / formoterol 12:00:00 AM EDT [facility]) fumarate 0.0045 MG/ACTUAT Metered Dose Inhaler [Symbicort] 120 ACTUAT Fluticasone 06/05/2019 eCW3 ([place] propionate 0.23 MG/ACTUAT / 12:00:00 AM [facility]) salmeterol 0.021 MG/ACTUAT Metered Dose Inhaler [Advair] Zolpidem tartrate 5 MG Oral 06/19/2018 [facility] Tablet 12:00:00 AM [facility] Methylprednisolone (Medrol 06/19/2018 [facility] Dose-Tristan 4MG Tab*) 4 Mg 12:00:00 AM [facility] H ospital Tab.ds.pk Hydromorphone Hydrochloride 2 06/19/2018 [facility] MG Oral Tablet [Dilaudid] 12:00:00 AM [facility] heparin sodium, porcine 5000 06/19/2018 [facility] UNT/ML Injectable Solution 12:00:00 AM [facility] Acetaminophen 325 MG Oral 06/19/2018 [facility] Tablet [Mapap] 12:00:00 AM [facility] Zolpidem tartrate 5 MG Oral 06/19/2018 [facility] Tablet 12:00:00 AM [facility] Methylprednisolone (Medrol 06/19/2018 [facility] Dose-Tristan 4MG Tab*) 4 Mg 12:00:00 AM [facility] H ospital Tab.ds.pk Hydromorphone Hydrochloride 2 06/19/2018 [facility] MG Oral Tablet [Dilaudid] 12:00:00 AM [facility] heparin sodium, porcine 5000 06/19/2018 [facility] UNT/ML Injectable Solution 12:00:00 AM [facility] Acetaminophen 325 MG Oral 06/19/2018 [facility] Tablet [Mapap] 12:00:00 AM [facility] Ensure Enlive - eCW3 ([facility]) 200 ACTUAT Albuterol 0.09 eC W3 ([place] MG/ACTUAT Dry Powder Inhaler [facility]) [ProAir] Acetaminophen 325 MG / [facility] Oxycodone Hydrochloride 5 MG Hospital Oral Tablet [Percocet] Naproxen 500 MG Oral Tablet [facility] [Naprosyn] Hospital Salmeterol [facility] Xinafoate/Fluticasone ([facility] 250/50 Diskus*) 250 Mcg-50 Mcg/Dose Blst.w.dev 120 ACTUAT Albuterol 0.1 [facility] MG/ACTUAT / [facility] 0.02 MG/ACTUAT Metered Dose Inhaler [Combivent] gabapentin 300 MG Oral [facility] Capsule [Neurontin] [facility] Acetaminophen 325 MG / [facility] Oxycodone Hydrochloride 5 MG Hospital Oral Tablet [Percocet] Naproxen 500 MG Oral Tablet [facility] [Napros] [facility] Salmeterol [facility] Xinafoate/Fluticasone ([facility] 250/50 Diskus*) 250 Mcg-50 Mcg/Dose Blst.w.dev 120 ACTUAT Albuterol 0.1 [facility] MG/ACTUAT / [facility]pr[facility]ropium [facility] 0.02 MG/ACTUAT Metered Dose Inhaler [Combivent] gabapentin 300 MG Oral [facility] Capsule [facility]] [facility]
[2020-01-20] MEDS ORDERED: ONDANSETRON 4 MG/2 ML VIAL IVPUSH PRN (22:27)
--- NOTE | 2020-01-20 22:34 | HP ---
CHIEF COMPLAINT: I don't understand why this keeps happening PCP: Dr. Lubin HISTORY OF PRESENT ILLNESS: 69yo M with PMHx of COPD, hepC, multiple abdominal surgeries and recurrent SBOs who present with on day of abdominal pain, nausea, and vomiting. Pain and vomiting started last night, and patient said he vomited about 1/2 gallon of dark green/hanson secretions. The vomiting stopped around 6am this morning and patient had a BM at around 10am. Since BM patient has not been passing any flatus. Endorse nausea but denied any other associated symptoms such as headaches, diarrhea, constipation, fever, chills, SOB, dysuria, polyuria. 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 -lives with daughter Allergies No Known Allergies Allergy (Verified 12/29/19 19:13) HOME MEDICATIONS: Home Medications Medication Instructions Recorded Ipratropium/Albuterol Sulfate 4 gm IH BID 10/13/17 [Combivent Respimat 20-100 Mcg] Fluticasone/Salmeterol [Advair 1 each IH BID 06/15/19 250-50 Diskus] Gabapentin [Neurontin] 300 mg PO HS 06/15/19 traZODone HCL [Trazodone HCl] 50 mg PO HS PRN 06/15/19 Docusate Sodium [Colace -] 100 mg PO BID #60 capsule 06/26/19 Polyethylene Glycol 3350 [Miralax 17 gm PO DAILY #1 bottle 06/27/19 119 gm Btl -] Doxepin HCl 75 mg PO DAILY 06/30/19 Mirtazapine 30 mg PO DAILY 06/30/19 Oxycodone HCl [Oxycodone HCl ER] 10 mg PO BID 01/01/20 Prednisone See Taper PO DAILY #30 tablet 01/06/20 REVIEW OF SYSTEMS as per HPI PHYSICAL EXAMINATION Vital Signs - 24 hr 01/20/20 01/20/20 13:41 15:12 Temperature 98 F Pulse Rate 81 Respiratory 20 Rate Blood Pressure 117/80 O2 Sat by Pulse 98 97 Oximetry (%) GENERAL: AAM, appears stated age, thin body habitus, AAOx4 showing no signs of acute distress HEAD: Normal with no signs of trauma, absent dentition EYES: arcus senilis, PERRL, extraocular movements intact bilaterally, white sclera EARS, NOSE, THROAT: dry mucous membranes. NECK: No lymphadenopathy LUNGS: bilateral expiratory wheezing more pronounce in lower lobes HEART: RRR, normal S1 and S2 without murmur ABDOMEN: thin, hard, barely tender to palpation and percussion (s/p morphine), not distended, tympanic in epigastric area, active bowel sounds, no guarding, no rebound, central horizontal abdominal scar, bilateral horizontal scars EXTREMITIES: 2+ radial and dorsalis pedis pulses, warm to touch bilaterally, nontender to palpation, no peripheral edema appreciated, no active lesions or ulcers noted NEUROLOGICAL: Cranial nerves II-XII grossly intact. Normal speech with symmetricalfacial movements. Sensation intact bilaterally PSYCHIATRIC: Cooperative and interactive, responds appropriately. Good eye contact. Appropriate mood SKIN: no rashes or lesions noted Abnormal Lab Results 01/20/20 01/20/20 14:40 14:40 WBC 13.1 H MCHC 31.8 L RDW 17.5 H Absolute Neuts (auto) 10.4 H Anion Gap 7 L BUN 23.5 H Random Glucose 116 H Calcium 10.2 H AST 14 L Total Protein 8.5 H Lipase 66 L ASSESSMENT/PLAN: 69yo M with PMHx of COPD, hepC, multiple abdominal surgeries and recurrent SBOs who present with on day of abdominal pain, nausea, and vomiting. Abdominal/Pelvic CT showed active distal small bowel obstruction, and patient was admitted for further management. #SBO 2/2 to adhesions in setting of multiple abdominal surgeries - surgery consulted - hold home PO meds - currently holding NG tube placement as patient would rather an experienced person placing it - gentle hydration - strict NPO - continue zofran for nausea - continue tylenol and morphine PRN for pain #Leukocytosis - unclear etiology - ?steroid use, ?UTI - do UA to r/o UTI - patient no longer taking prednisone taper #smoker - nicotine patch #FEN - 2 bags 50cc/h NS - replete lytes PRN - NPO #PPX - DVT: SCDs #Dispo: medSurg Family Medical History Family History: As Documented Visit type - Medication Review Med list reviewed for High Risk Meds patients 65 and older: No - Emergency Visit Emergency Visit: Yes ED Registration Date: 01/20/20 Care time: The patient presented to the Emergency Department on the above date and was hospitalized for further evaluation of their emergent condition. - New Patient This patient is new to me today: Yes Date on this admission: 01/21/20 - Critical Care Critical Care patient: No ATTENDING PHYSICIAN STATEMENT I saw and evaluated the patient. I reviewed the resident's note and discussed the case with the resident. I agree with the resident's findings and plan as documented. SUBJECTIVE: OBJECTIVE: ASSESSMENT AND PLAN:
[2020-01-21 00:51] LABS: URINE COLOR YELLOW
[2020-01-21 00:52] LABS: URINE APPEARANCE CLEAR; URINE BILIRUBIN NEGATIVE (NEGATIVE); URINE GLUCOSE (UA) NEGATIVE (NEGATIVE); URINE KETONE NEGATIVE (NEGATIVE); URINE PROTEIN TRACE (NEGATIVE)
[2020-01-21 00:53] LABS: EPI CELLS 12.3 /uL (0-25.1); HYALINE CASTS 2.56 /uL (0-3.1); URINE BACTERIA 49.7 /uL (0-1359); URINE LEUK ESTERASE NEGATIVE (NEGATIVE); URINE NITRITE NEGATIVE (NEGATIVE); URINE RBC 36.7 /uL (0-23.9); URINE WBC 9.7 /uL (0-25.8)
[2020-01-21] MEDS ORDERED: LIDOCAINE HCL 2% JELLY 10 ML CARTRIDGE ONE (00:59)
[2020-01-21] MEDS ORDERED: MORPHINE SULFATE 2 MG/ML VIAL ONE ×4 (01:00→19:31)
[2020-01-21] MEDS: MORPHINE SULFATE 2 MG/ML VIAL IVPUSH PRN ×3 (01:02→11:46)
[2020-01-21] MEDS ORDERED: PATIENT'S OWN MEDICATION (NON-FORMULARY) (Ipratropium/Albuterol Sulfate 4 GM) IH SCH (02:00)
[2020-01-21] MEDS ORDERED: ALBUTEROL SO4 2.5/IPRATROPIUM 0.5 INH SOL 3 ML VIAL.NEB. NEB ONE ×2 (02:30→02:32)
[2020-01-21] MEDS: SODIUM CHLORIDE 1,000 ML IV SCH ×2 (04:32→22:21)
[2020-01-21 07:52] LABS: BASO % 0.3 % (0-2.0); EOS % 1.1 % (0-4.5); MCH 27.3 pg (25.7-33.7); MCHC 32.5 g/dl (32.0-35.9); MEAN CELL VOLUME 84.1 fl (80-96); MEAN PLT VOLUME 8.4 fl (7.5-11.1); MONO % 6.6 % (3.8-10.2); PLATELET COUNT 233 K/MM3 (134-434); RBC 4.04 M/mm3 (4.00-5.60); RDW 16.5 % (11.9-15.9); WHITE BLOOD COUNT 8.6 K/mm3 (4.0-10.0)
[2020-01-21 08:24] LABS: POTASSIUM 4.3 mmol/L (3.5-5.1)
[2020-01-21] MEDS: ALBUTEROL SO4 2.5/IPRATROPIUM 0.5 INH SOL 3 ML VIAL.NEB. NEB SCH ×2 (08:34→20:30)
[2020-01-21 08:53] LABS: ALBUMIN 2.9 g/dl (3.4-5.0); BILIRUBIN,TOTAL 0.8 mg/dL (0.2-1); BLOOD UREA NITROGEN 17.7 mg/dL (7-18); CALCIUM 7.9 mg/dL (8.5-10.1); CREATININE 0.9 mg/dL (0.55-1.3); MAGNESIUM 1.9 mg/dL (1.8-2.4)
--- NOTE | 2020-01-21 09:07 | EKG ---
Test Reason : Blood Pressure : / mmHG Vent. Rate : 104 BPM Atrial Rate : 104 BPM P-R Int : 130 ms QRS Dur : 064 ms QT Int : 316 ms P-R-T Axes : 081 080 083 degrees QTc Int : 415 ms POOR DATA QUALITY, INTERPRETATION MAY BE ADVERSELY AFFECTED SINUS TACHYCARDIA WITH PREMATURE ATRIAL COMPLEXES POSSIBLE LEFT ATRIAL ENLARGEMENT BORDERLINE ECG WHEN COMPARED WITH ECG OF 31-DEC-2019 13:14, PREMATURE ATRIAL COMPLEXES ARE NOW PRESENT VENT. RATE HAS INCREASED BY [address] NO LONGER ELEVATED IN INFERIOR LEADS INVERTED T WAVES HAVE REPLACED NONSPECIFIC T WAVE ABNORMALITY IN ANTERIOR LEADS Confirmed by MD SORIN, LOLITA ([id number]) on 01/21/2020 9:07:15 AM Referred By: Confirmed By:LOLITA ROWELL MD
[2020-01-21] MEDS: NICOTINE 7 MG/24 HOURS TOPICAL PATCH TD SCH (10:35)
[2020-01-21] MEDS: BUDESONIDE/FORMETEROL FUMARATE 80/4.5 mcg INHALER IH SCH ×2 (11:55→22:19)
--- NOTE | 2020-01-21 12:12 | PN ---
Teaching Attending Note Name of Resident: Niesha Engel ATTENDING PHYSICIAN STATEMENT I saw and evaluated the patient. I reviewed the resident's note and discussed the case with the resident. I agree with the resident's findings and plan as documented. SUBJECTIVE: Seen and examined at bedside. Patient reports abdominal pain, nausea, vomiting have improved since placement of the NG tube. Satting well on room air, denies shortness of breath. OBJECTIVE Last Vital Signs Temp Pulse Resp BP Pulse Ox 98.2 F 85 19 135/78 96 01/21/20 09:57 01/21/20 09:57 01/21/20 09:57 01/21/20 09:57 01/21/20 09:57 PE: Per resident note Labs/Imaging: reviewed ASSESSMENT/PLAN 69-year-old male past medical history of COPD, hep C, multiple abdominal surgeries and recurrent SBO's who presents with abdominal pain, nausea, vomiting, found to have distal small bowel obstruction on CT scan. #Small bowel obstruction with history of multiple abdominal surgeries and recurrent SBO's Surgery on board: Appreciate recommendations N.p.o. NGT in place Fluids Nausea, pain control #Leukocytosis: Resolved Likely secondary to dehydration plus reactive in setting of SBO No antibiotics at this time #COPD: At baseline Continue home medications Stable on room air
--- NOTE | 2020-01-21 12:43 | PN ---
Physical Exam: SUBJECTIVE: Patient seen and examined at bedside no acute events overnight patient states that he is feeling slightly better- he is having less pain and nausea; he denies any CP/SOB OBJECTIVE: Vital Signs Period Temp Pulse Resp BP Sys/Monsalve Pulse Ox Last 24 Hr 98 F-98.3 F 81-91 18-20 112-135/78-94 95-100 GENERAL: The patient is awake, alert, and fully oriented, in no acute distress. EYES: PEELRA: EOMI no scleral icterus NECK: no JVD no lymphadenoapthy LUNGS: diminsihed breath sounds at the bases HEART: Regular rate and rhythm, S1, S2 without murmur, rub or gallop. ABDOMEN: Soft, + tenderness upon palpation slight guarding; hypoactive BS EXTREMITIES: 2+ pulses, warm, well-perfused, no edema. PSYCH: Normal mood, normal affect. SKIN: Warm, dry, normal turgor, no rashes or lesions noted Laboratory Results - last 24 hr 01/20/20 01/20/20 01/20/20 14:40 14:40 14:40 WBC 13.1 H RBC 5.31 Hgb 14.3 Hct 44.9 D MCV 84.5 MCH 26.9 MCHC 31.8 L RDW 17.5 H Plt Count 320 D MPV 8.4 Absolute Neuts (auto) 10.4 H Neutrophils % 79.4 D Lymphocytes % 13.3 D Monocytes % 6.5 Eosinophils % 0.3 D Basophils % 0.5 Nucleated RBC % 0 PT with INR 12.50 INR 1.06 PTT (Actin FS) 27.6 Sodium 140 Potassium 4.7 Chloride 103 Carbon Dioxide 30 Anion Gap 7 L BUN 23.5 H Creatinine 1.1 Est GFR (CKD-EPI)AfAm 77.86 Est GFR (CKD-EPI)NonAf 67.18 Random Glucose 116 H Calcium 10.2 H Phosphorus Magnesium 2.3 Total Bilirubin 0.6 AST 14 L ALT 19 Alkaline Phosphatase 52 Troponin I < 0.02 Total Protein 8.5 H Albumin 4.2 Lipase 66 L Urine Color Urine Appearance Urine pH Ur Specific [place] Urine Protein Urine Glucose (UA) Urine Ketones Urine Blood Urine Nitrite Urine Bilirubin Urine Urobilinogen Ur Leukocyte Esterase Urine WBC (Auto) Urine RBC (Auto) Urine Casts (Auto) U Epithel Cells (Auto) Urine Bacteria (Auto) Blood Type Antibody Screen 01/20/20 01/20/20 01/21/20 14:40 23:40 07:15 WBC 8.6 RBC 4.04 Hgb 11.0 L Hct 34.0 L D MCV 84.1 MCH 27.3 MCHC 32.5 RDW 16.5 H Plt Count 233 D MPV 8.4 Absolute Neuts (auto) 5.7 Neutrophils % 66.0 Lymphocytes % 26.0 D Monocytes % 6.6 Eosinophils % 1.1 D Basophils % 0.3 Nucleated RBC % 0 PT with INR INR PTT (Actin FS) Sodium Potassium Chloride Carbon Dioxide Anion Gap BUN Creatinine Est GFR (CKD-EPI)AfAm Est GFR (CKD-EPI)NonAf Random Glucose Calcium Phosphorus Magnesium Total Bilirubin AST ALT Alkaline Phosphatase Troponin I Total Protein Albumin Lipase Urine Color Yellow Urine Appearance Clear Urine pH 8.0 D Ur Specific [place] 1.071 H Urine Protein Trace Urine Glucose (UA) Negative Urine Ketones Negative Urine Blood Negative Urine Nitrite Negative Urine Bilirubin Negative Urine Urobilinogen 1.0 Ur Leukocyte Esterase Negative Urine WBC (Auto) 9.7 Urine RBC (Auto) 36.7 Urine Casts (Auto) 2.56 U Epithel Cells (Auto) 12.3 Urine Bacteria (Auto) 49.7 Blood Type A POSITIVE Antibody Screen Negative 01/21/20 07:15 WBC RBC Hgb Hct MCV MCH MCHC RDW Plt Count MPV Absolute Neuts (auto) Neutrophils % Lymphocytes % Monocytes % Eosinophils % Basophils % Nucleated RBC % PT with INR INR PTT (Actin FS) Sodium 139 Potassium 4.3 Chloride 106 Carbon Dioxide 27 Anion Gap 6 L BUN 17.7 Creatinine 0.9 Est GFR (CKD-EPI)AfAm 99.24 Est GFR (CKD-EPI)NonAf 85.63 Random Glucose 77 Calcium 7.9 L Phosphorus 3.0 Magnesium 1.9 Total Bilirubin 0.8 AST 11 L ALT 14 Alkaline Phosphatase 38 L Troponin I Total Protein 6.0 L Albumin 2.9 L Lipase Urine Color Urine Appearance Urine pH Ur Specific [place] Urine Protein Urine Glucose (UA) Urine Ketones Urine Blood Urine Nitrite Urine Bilirubin Urine Urobilinogen Ur Leukocyte Esterase Urine WBC (Auto) Urine RBC (Auto) Urine Casts (Auto) U Epithel Cells (Auto) Urine Bacteria (Auto) Blood Type Antibody Screen Active Medications Generic Name Dose Route Start Last Admin Trade Name Freq PRN Reason Stop Dose Admin Albuterol/Ipratropium 1 amp 09/16/20 08:00 01/21/20 08:34 Duoneb - NEB Not Given RBID EMILY Budesonide/Formoterol Fumarate 2 puff 01/21/20 10:00 01/21/20 11:55 Symbicort 80/4.5mcg - IH Not Given BID EMILY Sodium Chloride 1,000 mls @ 50 mls/hr 01/20/20 22:30 01/21/20 04:32 Normal Saline - IV 01/22/20 18:29 50 mls/hr ASDIR EMILY Administration Morphine Sulfate 2 mg 01/20/20 22:24 01/21/20 11:46 Morphine Sulfate IVPUSH 2 mg Q4H PRN Administration PAIN LEVEL 6-10 Nicotine 7 mg 01/21/20 10:00 01/21/20 10:35 Nicoderm Patch - TD 7 mg DAILY EMILY Administration Ondansetron HCl 4 mg 01/20/20 22:27 Zofran Injection IVPUSH Q4H PRN NAUSEA AND/OR VOMITING ASSESSMENT/PLAN: 69yo M with PMHx of COPD, hepC, multiple abdominal surgeries and recurrent SBOs who present with on day of abdominal pain, nausea, and vomiting. Abdominal/Pelvic CT showed active distal small bowel obstruction, and patient was admitted for further management. #SBO 2/2 to adhesions in setting of multiple abdominal surgeries - surgery consulted - hold home PO meds - NGT - gentle hydration - strict NPO - continue zofran for nausea - continue tylenol and morphine PRN for pain -repeat Ab XRAY in AM #Leukocytosis - unclear etiology - ?steroid use, ?UTI - do UA to r/o UTI - patient no longer taking prednisone taper #smoker - nicotine patch #FEN - 2 bags 50cc/h NS - replete lytes PRN - NPO #PPX - DVT: SCDs #Dispo: medSurg Problem List - Problems (1) SBO (small bowel obstruction) Code(s): K56.609 - UNSP INTESTNL OBST, UNSP TO PARTIAL VERSUS COMPLETE OBST (2) COPD (chronic obstructive pulmonary disease) Code(s): J44.9 - CHRONIC OBSTRUCTIVE PULMONARY DISEASE, UNSPECIFIED Qualifiers: COPD type: unspecified COPD Qualified Code(s): J44.9 - Chronic obstructive pulmonary disease, unspecified Visit type - Emergency Visit Emergency Visit: Yes ED Registration Date: 01/20/20 Care time: The patient presented to the Emergency Department on the above date and was hospitalized for further evaluation of their emergent condition. - New Patient This patient is new to me today: Yes Date on this admission: 01/21/20 - Critical Care Critical Care patient: No - Medication Review Med list reviewed for High Risk Meds patients 65 and older: Yes ATTENDING PHYSICIAN STATEMENT I saw and evaluated the patient. I reviewed the resident's note and discussed the case with the resident. I agree with the resident's findings and plan as documented. SUBJECTIVE: OBJECTIVE: ASSESSMENT AND PLAN:
--- NOTE | 2020-01-21 14:06 | CONS ---
DATE OF CONSULTATION: 01/21/2020 REASON FOR CONSULTATION: Small-bowel obstruction. This is emergency room consultation requested by the emergency room physician. Patient was seen and examined this morning. However, due to persistent computer problems at [facility] I was unable to input my findings into the computer system and had to use the dictation service at this time. BRIEF HISTORY: This is a 69-year-old male with a complicated past surgical history including appendectomy, multiple surgeries for small-bowel obstruction with small-bowel resection. He has been admitted multiple times for this problem. He states after eating meatballs with spaghetti he came in with his usual symptoms of abdominal pain, nausea and vomiting. He had a CAT scan of his abdomen and pelvis. However, he was unable to drink much of oral contrast. The CAT scan was suggestive of a high-grade bowel obstruction without ascites. A nasogastric tube was placed and request was made for a surgical evaluation. Patient states that he does not wish to have any surgery and that he would wait at least a week before even considering surgery as he has in the past hoping for medical management to work. PAST MEDICAL HISTORY: Significant for COPD, hepatitis C. PAST SURGICAL HISTORY: Includes 3 laparotomies, an appendectomy and sinus surgery. SOCIAL HISTORY: Significant for quitting smoking 4 months ago. He no longer drinks alcohol. ALLERGIES: He has no known drug allergies. HOME MEDICATIONS: Include Advair, Neurontin, trazodone, Colace, MiraLAX, prednisone. FAMILY HISTORY: Noncontributory. REVIEW OF SYSTEMS: General: Denies fatigue. Cardiac: Denies chest pain. Respiratory: Denies more than his usual shortness of breath. Gastrointestinal: Admits to nausea, vomiting. States he has pain that comes and goes in waves that has improved since the nasogastric tube has been placed. He admits to a small amount of flatus. Denies diarrhea. Denies blood in his stool. Genitourinary: Denies dysuria. Musculoskeletal: Admits to arthritic pain. Psychiatric: Denies hearing voices. PHYSICAL EXAMINATION: General: This is a cachectic 69-year-old male in no distress. Vital Signs: He is afebrile. His vital signs are stable. HEENT: His head is normocephalic. His sclerae are anicteric.Neck: Supple. Chest: Clear. Abdomen: Soft. It is moderately distended. There is a well-healed midline scar from his umbilicus to his pubis with perhaps a weakness in the lower third. He has minimal tenderness. Extremities: Trace edema. REVIEW OF LABORATORIES: White blood cell count is normal at 8.6, down from 13 on arrival. His chemistry is unremarkable with the exception of an albumin of 2.9. His COVID is pending, negative. His imaging is as stated in the HPI. ASSESSMENT: A 69-year-old male with multiple abdominal surgeries, multiple previous bowel obstructions presents with his usual symptoms. He has a CAT scan of the abdomen and pelvis suggestive of a distal small-bowel obstruction, but the transition point is not seen. There is also evidence of a previous small-bowel resection. No ascites is noted. 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 Would recommend repeating the CAT scan now that a nasogastric tube is in place and oral contrast could be given to better delineate the transition. Also, patient does not wish to have surgery unless he tries for at least 1 week with nasogastric decompression. That appears to be reasonable, also will give time for his COVID test to come back negative. If the COVID test is positive, he should avoid surgery as that could lead to respiratory failure and thromboembolic complications and . Recommend starting TPN as the patient is cachectic. Recommend a prolonged attempt at medical management. If a week goes by and he still has not improved clinically, please reconsult for surgical exploration assuming the patient is COVID negative and interested in surgery. The patient currently is nontoxic without evidence of bowel compromise. DO FEMI SANTO/[id number]
[2020-01-21] MEDS: AMINO ACIDS 4.25%/D5W 1,000 ML IV SCH (15:35)
[2020-01-21] MEDS ORDERED: LIDOCAINE VISCOUS 2% ORAL/TOP 20 ML UNIT-DOSE CUP ONE (19:31)
[2020-01-22 00:08] VITALS: BMI 16.0
[2020-01-22] MEDS: MORPHINE SULFATE 2 MG/ML VIAL IVPUSH PRN ×4 (02:56→19:57)
[2020-01-22] MEDS: ALBUTEROL SO4 2.5/IPRATROPIUM 0.5 INH SOL 3 ML VIAL.NEB. NEB SCH ×2 (07:45→20:15)
[2020-01-22 08:26] LABS: BASO % 0.5 % (0-2.0); EOS % 1.1 % (0-4.5); HEMATOCRIT 36.5 % (35.4-49); HEMOGLOBIN 11.8 GM/dL (11.7-16.9); LYMPH % 13.9 % (8-40); MCHC 32.2 g/dl (32.0-35.9); MEAN CELL VOLUME 83.8 fl (80-96); MEAN PLT VOLUME 8.4 fl (7.5-11.1); MONO % 7.6 % (3.8-10.2); NEUT % 76.9 % (42.8-82.8); PLATELET COUNT 211 K/MM3 (134-434); RBC 4.36 M/mm3 (4.00-5.60); RDW 16.7 % (11.9-15.9); WHITE BLOOD COUNT 11.1 K/mm3 (4.0-10.0)
[2020-01-22 08:51] LABS: ALBUMIN 3.2 g/dl (3.4-5.0); BILIRUBIN,TOTAL 1.3 mg/dL (0.2-1); BLOOD UREA NITROGEN 20.3 mg/dL (7-18); CALCIUM 8.4 mg/dL (8.5-10.1); CREATININE 0.8 mg/dL (0.55-1.3); MAGNESIUM 1.9 mg/dL (1.8-2.4); PHOSPHOROUS 2.7 mg/dL (2.5-4.9); POTASSIUM 3.8 mmol/L (3.5-5.1); TOT PROT 6.6 g/dl (6.4-8.2)
[2020-01-22] MEDS ORDERED: PT OWN MED DRAWER 7, Y5N ONE (09:40)
--- NOTE | 2020-01-22 10:03 | PN ---
Progress Note (short form) - Note Progress Note: surgery repeat ct with oral contrast shows resolution of sbo with oral contrast in colon. consider removing ngt and trial of liquids.
[2020-01-22] MEDS: BUDESONIDE/FORMETEROL FUMARATE 80/4.5 mcg INHALER IH SCH ×2 (10:14→21:59)
[2020-01-22] MEDS: NICOTINE 7 MG/24 HOURS TOPICAL PATCH TD SCH (10:14)
--- NOTE | 2020-01-22 11:03 | PN ---
Physical Exam: SUBJECTIVE: Patient seen and examined at bedside- no acute events overnight; patient states he is still having slight discomfort however improving;he is passing gas but has not had a BM; he denies any nausea or vomiting OBJECTIVE: Vital Signs Period Temp Pulse Resp BP Sys/Monsalve Pulse Ox Last 24 Hr 97.9 F-98.9 F 88-89 19-20 125-127/86-89 92-99 GENERAL: The patient is awake, alert, and fully oriented, in no acute distress. EYES:PEERLA: EOMI no scleral icterus . NECK: no JVD; no lymphadenopathy. LUNGS: diminished BS at the bases; no rales/rhonchi or wheezing HEART: Regular rate and rhythm, S1, S2 without murmur, rub or gallop. ABDOMEN: Soft, +tenderness upon palpatiuon; hypoactive BS EXTREMITIES: 2+ pulses, warm, well-perfused, no edema. PSYCH: Normal mood, normal affect. SKIN: Warm, dry, normal turgor, no rashes or lesions noted Laboratory Results - last 24 hr 01/21/20 01/22/20 01/22/20 02:04 07:46 07:46 WBC 11.1 H RBC 4.36 Hgb 11.8 Hct 36.5 MCV 83.8 MCH 27.0 MCHC 32.2 RDW 16.7 H Plt Count 211 MPV 8.4 Absolute Neuts (auto) 8.5 H Neutrophils % 76.9 Lymphocytes % 13.9 D Monocytes % 7.6 Eosinophils % 1.1 Basophils % 0.5 Nucleated RBC % 0 Sodium 135 L Potassium 3.8 Chloride 101 Carbon Dioxide 26 Anion Gap 8 BUN 20.3 H Creatinine 0.8 Est GFR (CKD-EPI)AfAm 104.17 Est GFR (CKD-EPI)NonAf 89.88 Random Glucose 100 Calcium 8.4 L Phosphorus 2.7 Magnesium 1.9 Total Bilirubin 1.3 H AST 14 L ALT 14 Alkaline Phosphatase 42 L Total Protein 6.6 Albumin 3.2 L COVID-19 (WENDI) Not detected Active Medications Generic Name Dose Route Start Last Admin Trade Name Freq PRN Reason Stop Dose Admin Albuterol/Ipratropium 1 amp 01/21/20 08:00 01/22/20 07:45 Duoneb - NEB 1 amp RBID EMILY Administration Budesonide/Formoterol Fumarate 2 puff 01/21/20 10:00 01/22/20 10:14 Symbicort 80/4.5mcg - IH 2 puff BID EMILY Administration Sodium Chloride 1,000 mls @ 50 mls/hr 01/20/20 22:30 01/21/20 22:21 Normal Saline - IV 01/22/20 18:29 50 mls/hr ASDIR EMILY Administration Amino Acids 1,000 mls @ 42 mls/hr 01/21/20 15:00 01/21/20 15:35 Clinimix - IV 42 mls/hr Q24H EMILY Administration Morphine Sulfate 2 mg 01/20/20 22:24 01/22/20 08:01 Morphine Sulfate IVPUSH 2 mg Q4H PRN Administration PAIN LEVEL 6-10 Nicotine 7 mg 01/21/20 10:00 01/22/20 10:14 Nicoderm Patch - TD 7 mg DAILY EMILY Administration Ondansetron HCl 4 mg 01/20/20 22:27 Zofran Injection IVPUSH Q4H PRN NAUSEA AND/OR VOMITING ASSESSMENT/PLAN: 69yo M with PMHx of COPD, hepC, multiple abdominal surgeries and recurrent SBOs who present with on day of abdominal pain, nausea, and vomiting. Abdominal/Pelvic CT showed active distal small bowel obstruction, and patient was admitted for further management. #SBO 2/2 to adhesions in setting of multiple abdominal surgeries - surgery consulted - repeat Ab/pelvis CT yesterday shows significant improvement in SBO -will remove NGT and try liquids - continue zofran for nausea - continue tylenol and morphine PRN for pain #Leukocytosis - unclear etiology - ?steroid use, ?UTI - do UA to r/o UTI - patient no longer taking prednisone taper #smoker - nicotine patch #FEN - 2 bags 50cc/h NS - replete lytes PRN - liquids #PPX - DVT: SCDs #Dispo: medSurg anticipate dc in the next day or so if patient can tolerate liquid diet Problem List - Problems (1) SBO (small bowel obstruction) Code(s): K56.609 - UNSP INTESTNL OBST, UNSP TO PARTIAL VERSUS COMPLETE OBST (2) COPD (chronic obstructive pulmonary disease) Code(s): J44.9 - CHRONIC OBSTRUCTIVE PULMONARY DISEASE, UNSPECIFIED Qualifiers: COPD type: unspecified COPD Qualified Code(s): J44.9 - Chronic obstructive pulmonary disease, unspecified Visit type - Emergency Visit Emergency Visit: Yes ED Registration Date: 01/20/20 Care time: The patient presented to the Emergency Department on the above date and was hospitalized for further evaluation of their emergent condition. - New Patient This patient is new to me today: No - Critical Care Critical Care patient: No - Medication Review Med list reviewed for High Risk Meds patients 65 and older: Yes ATTENDING PHYSICIAN STATEMENT I saw and evaluated the patient. I reviewed the resident's note and discussed the case with the resident. I agree with the resident's findings and plan as documented. SUBJECTIVE: OBJECTIVE: ASSESSMENT AND PLAN:
--- NOTE | 2020-01-22 11:26 | PN ---
Teaching Attending Note Name of Resident: Niesha Engel ATTENDING PHYSICIAN STATEMENT I saw and evaluated the patient. I reviewed the resident's note and discussed the case with the resident. I agree with the resident's findings and plan as documented. SUBJECTIVE: OBJECTIVE: ASSESSMENT AND PLAN: Patient was seen and examined 69 year old Male with a PMHx notable for COPD, hepatitis C, multiple abdominal surgeries and recurrent SBOs who presents with N/V, epigastric pain found to have SBO #SBO 2/2 to adhesions in setting of multiple abdominal surgeries - surgery consulted -As per surgery plan to d/c NGT and trial of liquids #Leukocytosis - unclear etiology - ?steroid use, ?UTI - WBC normal now..currently off steroids #Dispo: anticipate dc in the next day or so if patient can tolerate liquid diet
[2020-01-22] MEDS: AMINO ACIDS 4.25%/D5W 1,000 ML IV SCH (19:23)
[2020-01-23] MEDS: MORPHINE SULFATE 2 MG/ML VIAL IVPUSH PRN ×3 (00:29→13:17)
[2020-01-23] MEDS: ALBUTEROL SO4 2.5/IPRATROPIUM 0.5 INH SOL 3 ML VIAL.NEB. NEB SCH (07:42)
[2020-01-23 08:41] LABS: BASO % 0.6 % (0-2.0); EOS % 2.8 % (0-4.5); HEMATOCRIT 35.6 % (35.4-49); HEMOGLOBIN 11.9 GM/dL (11.7-16.9); LYMPH % 20.2 % (8-40); MCH 28.2 pg (25.7-33.7); MCHC 33.4 g/dl (32.0-35.9); MEAN CELL VOLUME 84.3 fl (80-96); MEAN PLT VOLUME 8.9 fl (7.5-11.1); MONO % 10.2 % (3.8-10.2); NEUT % 66.2 % (42.8-82.8); PLATELET COUNT 178 K/MM3 (134-434); RBC 4.22 M/mm3 (4.00-5.60); RDW 16.6 % (11.9-15.9); WHITE BLOOD COUNT 9.4 K/mm3 (4.0-10.0)
[2020-01-23] MEDS: NICOTINE 7 MG/24 HOURS TOPICAL PATCH TD SCH (09:07)
[2020-01-23] MEDS: BUDESONIDE/FORMETEROL FUMARATE 80/4.5 mcg INHALER IH SCH (09:08)
[2020-01-23 09:18] LABS: ALBUMIN 3.1 g/dl (3.4-5.0); BLOOD UREA NITROGEN 12.3 mg/dL (7-18); CALCIUM 8.3 mg/dL (8.5-10.1); POTASSIUM 3.5 mmol/L (3.5-5.1)
[2020-01-23 09:23] LABS: BILIRUBIN,TOTAL 1.2 mg/dL (0.2-1); CREATININE 0.8 mg/dL (0.55-1.3); PHOSPHOROUS 2.5 mg/dL (2.5-4.9); TOT PROT 6.6 g/dl (6.4-8.2)
--- NOTE | 2020-01-23 10:45 | PN ---
Teaching Attending Note Name of Resident: Wilma Casey ATTENDING PHYSICIAN STATEMENT I saw and evaluated the patient. I reviewed the resident's note and discussed the case with the resident. I agree with the resident's findings and plan as documented. SUBJECTIVE: No acute events. Passing flatus. OBJECTIVE: Vital Signs Temperature 98.6 F 01/23/20 06:00 Pulse Rate 79 01/23/20 06:00 Respiratory Rate 20 01/23/20 06:00 Blood Pressure 99/68 01/23/20 06:00 O2 Sat by Pulse Oximetry (%) 96 01/23/20 06:00 PE: Gen: NAD, awake, alert, eating in bed HEENT: NC/AT, EOMI, TOD, MMM LUNG: CTA b/l without wheezes or rales CARD: RRR no murmurs appreciated ABD: soft, NT/ND, + BS in upper quadrants, no guarding or rebound EXT: No edema, no calf tenderness CBC, BMP 01/23/20 08:02 01/23/20 08:02 Active Medications Albuterol/Ipratropium (Duoneb -) 1 amp NEB RBID [facility] Last Admin: 01/23/20 07:42 Dose: 1 amp Documented by: Budesonide/Formoterol Fumarate (Symbicort 80/4.5mcg -) 2 puff IH BID [facility] Last Admin: 01/23/20 09:08 Dose: 2 puff Documented by: Amino Acids (Clinimix -) 1,000 mls @ 42 mls/hr IV Q24H [facility] Last Admin: 01/22/20 19:23 Dose: 42 mls/hr Documented by: Morphine Sulfate (Morphine Sulfate) 2 mg IVPUSH Q4H PRN PRN Reason: PAIN LEVEL 6-10 Last Admin: 01/23/20 09:06 Dose: 2 mg Documented by: Nicotine (Nicoderm Patch -) 7 mg TD DAILY [facility] Last Admin: 01/23/20 09:07 Dose: 7 mg Documented by: Ondansetron HCl (Zofran Injection) 4 mg IVPUSH Q4H PRN PRN Reason: NAUSEA AND/OR VOMITING ASSESSMENT AND PLAN: SBO resolving COPD not in exacerbation Hepatitis C history --Improved with conservative therapy this case --Patient tolerating diet (clears) and can advance as tolerated --Appreciated all consultation recommendations --Pain control --given patient improvement with flatus and tolerating diet patient is stable ti be discharged today --Patient can use OTC tylenol for pain mitigation; would avoid opiates due to avoidance of any ileus --Leukocytosis likely reactive vs. prior steroid use; normalized today Dispo: D/C home today DO Pancho Samuel
[2020-01-23 11:13] VITALS: BP 97/71; PULSE 78; TEMP 98.8
--- NOTE | 2020-01-23 14:11 | DS ---
Physical Exam: SUBJECTIVE: Patient seen and examined this AM. TOlerating Diet. No new complaints. OBJECTIVE: Vital Signs Period Temp Pulse Resp BP Sys/Monsalve Pulse Ox Last 24 Hr 98.2 F-99.2 F 78-92 20-20 95-112/63-76 90-98 PHYSICAL EXAM GENERAL: A&Ox3, NAD EYES: EOMI NECK: Supple, no JVD LUNGS: diminished breath sounds at the bases HEART: Regular rate and rhythm, S1, S2 without murmur ABDOMEN: Soft, nontender, nondistended, + bowel sounds, EXTREMITIES: no edema SKIN: Warm, dry LABS Laboratory Last Values WBC 9.4 K/mm3 (4.0-10.0) 01/23/20 08:02 RBC 4.22 M/mm3 (4.00-5.60) 01/23/20 08:02 Hgb 11.9 GM/dL (11.7-16.9) 01/23/20 08:02 Hct 35.6 % (35.4-49) 01/23/20 08:02 MCV 84.3 fl (80-96) 01/23/20 08:02 MCH 28.2 pg (25.7-33.7) 01/23/20 08:02 MCHC 33.4 g/dl (32.0-35.9) 01/23/20 08:02 RDW 16.6 % (11.9-15.9) H 01/23/20 08:02 Plt Count 178 K/MM3 (134-434) 01/23/20 08:02 MPV 8.9 fl (7.5-11.1) 01/23/20 08:02 Absolute Neuts (auto) 6.2 K/mm3 (1.5-8.0) 01/23/20 08:02 Neutrophils % 66.2 % (42.8-82.8) 01/23/20 08:02 Lymphocytes % 20.2 % (8-40) D 01/23/20 08:02 Monocytes % 10.2 % (3.8-10.2) 01/23/20 08:02 Eosinophils % 2.8 % (0-4.5) D 01/23/20 08:02 Basophils % 0.6 % (0-2.0) 01/23/20 08:02 Nucleated RBC % 0 % (0-0) 01/23/20 08:02 PT with INR 12.50 SEC (9.7-13.0) 01/20/20 14:40 INR 1.06 (0.83-1.09) 01/20/20 14:40 PTT (Actin FS) 27.6 SECONDS (25.2-36.5) 01/20/20 14:40 Sodium 138 mmol/L (136-145) 01/23/20 08:02 Potassium 3.5 mmol/L (3.5-5.1) 01/23/20 08:02 Chloride 103 mmol/L (98-107) 01/23/20 08:02 Carbon Dioxide 27 mmol/L (21-32) 01/23/20 08:02 Anion Gap 8 MMOL/L (8-16) 01/23/20 08:02 BUN 12.3 mg/dL (7-18) 01/23/20 08:02 Creatinine 0.8 mg/dL (0.55-1.3) 01/23/20 08:02 Est GFR (CKD-EPI)AfAm 104.17 01/23/20 08:02 Est GFR (CKD-EPI)NonAf 89.88 01/23/20 08:02 Random Glucose 102 mg/dL (74-106) 01/23/20 08:02 Calcium 8.3 mg/dL (8.5-10.1) L 01/23/20 08:02 Phosphorus 2.5 mg/dL (2.5-4.9) 01/23/20 08:02 Magnesium 2.0 mg/dL (1.8-2.4) 01/23/20 08:02 Total Bilirubin 1.2 mg/dL (0.2-1) H 01/23/20 08:02 AST 10 U/L (15-37) L 01/23/20 08:02 ALT 12 U/L (13-61) L 01/23/20 08:02 Alkaline Phosphatase 40 U/L (45-117) L 01/23/20 08:02 Troponin I < 0.02 ng/ml (0.00-0.05) 01/20/20 14:40 Total Protein 6.6 g/dl (6.4-8.2) 01/23/20 08:02 Albumin 3.1 g/dl (3.4-5.0) L 01/23/20 08:02 Lipase 66 U/L (73-393) L 01/20/20 14:40 Urine Color Yellow 01/20/20 23:40 Urine Appearance Clear 01/20/20 23:40 Urine pH 8.0 (5.0-8.0) D 01/20/20 23:40 Ur Specific [place] 1.071 (1.010-1.035) H 01/20/20 23:40 Urine Protein Trace (NEGATIVE) 01/20/20 23:40 Urine Glucose (UA) Negative (NEGATIVE) 01/20/20 23:40 Urine Ketones Negative (NEGATIVE) 01/20/20 23:40 Urine Blood Negative (NEGATIVE) 01/20/20 23:40 Urine Nitrite Negative (NEGATIVE) 01/20/20 23:40 Urine Bilirubin Negative (NEGATIVE) 01/20/20 23:40 Urine Urobilinogen 1.0 mg/dL (0.2-1.0) 01/20/20 23:40 Ur Leukocyte Esterase Negative (NEGATIVE) 01/20/20 23:40 Urine WBC (Auto) 9.7 /uL (0-25.8) 01/20/20 23:40 Urine RBC (Auto) 36.7 /uL (0-23.9) 01/20/20 23:40 Urine Casts (Auto) 2.56 /uL (0-3.1) 01/20/20 23:40 U Epithel Cells (Auto) 12.3 /uL (0-25.1) 01/20/20 23:40 Urine Bacteria (Auto) 49.7 /uL (0-1359) 01/20/20 23:40 COVID-19 (WENDI) Not detected (Not Detected) 01/21/20 02:04 Blood Type A POSITIVE 01/20/20 14:40 Antibody Screen Negative 01/20/20 14:40 HOSPITAL COURSE: Date of Admission:01/20/20 Date of Discharge: 01/23/20 69 y/o M PMHx COPD, hepC, multiple abdominal surgeries and recurrent SBOs presented with abdominal pain + nausea/vomiting and admitted for distal SBO on CT A/P. Labwork noted above, imaging as per chart. General Surgery was consulted who recommended conservative management after repeat imaging showed resolution. Patient was treated with NGT, IV and PO Analgesia, and Antiemesiss. Diet was advanced and patient tolerated Clear Liquid diet. Patient was passing flatus and NGT removed. VSS, Leukocytosis resolved. Patient given strict instruction for physician follow up, repeat labwork and medication compliance. Minutes to complete discharge: 36 Discharge Summary Problems reviewed: Yes Reason For Visit: SMALL BOWEL OBSTRUCTION Current Active Problems SBO (small bowel obstruction) (Acute) Condition: Improved - Instructions Diet, Activity, Other Instructions: You presented to the hospital with abdominal pain and were found to have a small bowel obstruction. Your pain improved, your diet was advanced and tolerated and you are being discharged home. Follow up with the following physicians: 1. PCP in one week, please call to schedule follow up, your work up is not complete until you do so. 2. General Surgery (Dr. Elizondo) in one week. Please discuss with Dr. Elizondo the abnormal findings on your Catscan. Follow up Labwork: 1. Repeat BMP in on week as your Total Bilirubin was elevated Please continue to monitor your diet as you need to intake less sugar and salt. Please return to the ER if you have any signs or symptoms of chest pain, shortness of breath, uncontrollable fever, chills, nausea, vomiting, numbness, tingling, or weakness in any part of your body, changes in vision, or slurred speech. Please return to the ER if symptoms persist, worsen, or new symptoms arise. Referrals: Sohail Elizondo MD [Staff Physician] - Disposition: HOME - Home Medications Comprehensive Discharge Medication List: Ambulatory Orders Ipratropium/Albuterol Sulfate [Combivent Respimat 20-100 Mcg] 4 gm IH BID 10/13/17 Fluticasone/Salmeterol [Advair 250-50 Diskus] 1 each IH BID 06/15/19 Gabapentin [Neurontin] 300 mg PO HS 06/15/19 traZODone HCL [Trazodone HCl] 50 mg PO HS PRN 06/15/19 Doxepin HCl 75 mg PO DAILY 06/30/19 Mirtazapine 30 mg PO DAILY 06/30/19 This patient is new to me today: Yes Date on this admission: 01/23/20 Emergency Visit: Yes ED Registration Date: 01/20/20 Care time: The patient presented to the Emergency Department on the above date and was hospitalized for further evaluation of their emergent condition. Critical Care patient: No - Discharge Referral Referred to [facility] Med [facility].C.: No ATTENDING PHYSICIAN STATEMENT I saw and evaluated the patient. I reviewed the resident's note and discussed the case with the resident. I agree with the resident's findings and plan as documented. SUBJECTIVE: OBJECTIVE: ASSESSMENT AND PLAN:
== END 2020-01-23 19:29 | disposition home or self-care (01) | DRG 388 ==
LOC: JER 13:35 → JERBED 21:15 → J8W 01-21 20:53
PROVIDERS: ADMIT Internal Medicine; ATTEND Internal Medicine
DX: K56.50 Intestinal adhesions [bands], unspecified as to partial versus complete obstruction (principal); E43 Unspecified severe protein-calorie malnutrition; Z68.1 Body mass index [BMI] 19.9 or less, adult; J44.9 Chronic obstructive pulmonary disease, unspecified; D72.829 Elevated white blood cell count, unspecified; B19.20 Unspecified viral hepatitis C without hepatic coma; R00.0 Tachycardia, unspecified; E83.52 Hypercalcemia; E86.0 Dehydration; E88.09 Other disorders of plasma-protein metabolism, not elsewhere classified
CPT/HCPCS: 36415; 71045-TC-FY; 74018-TC-FY; 74176-TC; 74177-TC; 80053; 81003; 83690; 83735; 84100; 84484; 85025; 85610; 85730; 86850; 86900; 86901; 93005; 93010; 94640; 99285-25; J0131; Q9967; U0003

== ENCOUNTER 2020-02-02 09:41 | Inpatient (IN) | payer MEDICARE, OTHER ==
--- NOTE | 2020-02-02 09:48 | PDOC ---
History of Present Illness - General Stated Complaint: ABDOMINAL PAIN Time Seen by Provider: 02/02/20 09:48 - History of Present Illness Initial Comments: 69 YOM h/o hep C, copd, multiple sbo presents with abdominal pain and vomiting since 2 am this morning. Patient reports his pain is 10/10, located diffusely across abdomen, nothing better or worse, passed gas and stool which was diarrhea last time 3 hours after onset of current sx. Was dc from here 3 weeks ago for SBO that resolved with NPO and NG tube. Now return with similar sx. Denies SOB, fever, chills, CP, recent sick contacts, recent travel, pain or blood with urine, pain or blood with stool, blood with vomit. Constitutional: No Weight Change, No Fever, No Chills, No Night Sweats, No Fatigue, No Malaise ENT/Mouth: No Hearing Changes, No Ear Pain, No Nasal Congestion, No Sinus Pain, No Hoarseness, No sore throat, No Rhinorrhea, No Swallowing Difficulty Eyes: No Eye Pain, No Swelling, No Redness, No Foreign Body, No Discharge, No Vision Changes Cardiovascular: No Chest Pain, No SOB, No PND, No Dyspnea on Exertion, No Orthopnea, No Claudication, No Edema, No Palpitations Respiratory: No Cough, No Sputum, No Wheezing, No Smoke Exposure, No Dyspnea Gastrointestinal: No Nausea, No Vomiting, No Diarrhea, No Constipation, No Pain, No Heartburn, No Anorexia, No Dysphagia, No Hematochezia, No Melena, No Flatulence, No Jaundice Genitourinary: No Dysmenorrhea, No DUB, No Dyspareunia, No Dysuria, No Urinary Frequency, No Hematuria, No Urinary Incontinence, No Urgency, No Flank Pain, No Urinary Flow Changes, No Hesitancy Musculoskeletal: No Arthralgias, No Myalgias, No Joint Swelling, No Joint Stiffness, No Back Pain, No Neck Pain, No Injury History Skin: No Skin Lesions, No Pruritis, No Hair Changes, No Breast/Skin Changes, No Nipple Discharge Neuro: No Weakness, No Numbness, No Paresthesias, No Loss of Consciousness, No Syncope, No Dizziness, No Headache, No Coordination Changes, No Recent Falls Psych: No Anxiety/Panic, No Depression, No Insomnia, No Personality Changes, No Delusions, No Rumination, No SI/HI/AH/VH, No Social Issues, No Memory Changes, No Violence/Abuse Hx., No Eating Concerns Heme/Lymph: No Bruising, No Bleeding, No Transfusions History, No Lymphadenopathy Endocrine: No Polyuria, No Polydipsia, No Temperature Intolerance Past History - Medical History Allergies/Adverse Reactions: Allergies Allergy/AdvReac Type Severity Reaction Status Date / Time No Known Allergies Allergy Verified 02/02/20 09:54 Home Medications: Ambulatory Orders Ipratropium/Albuterol Sulfate [Combivent Respimat 20-100 Mcg] 4 gm IH BID 10/13/17 Fluticasone/Salmeterol [Advair 250-50 Diskus] 1 each IH BID 06/15/19 Gabapentin [Neurontin] 300 mg PO HS 06/15/19 traZODone HCL [Trazodone HCl] 50 mg PO HS PRN 06/15/19 Doxepin HCl 75 mg PO DAILY 06/30/19 Mirtazapine 30 mg PO DAILY 06/30/19 Anemia: Yes (borderline) Asthma: Yes Cancer: No Cardiac Disorders: No CVA: No COPD: Yes CHF: No Dementia: No Diabetes: No GI Disorders: Yes (SBO) Disorders: No HTN: No Hypercholesterolemia: No Liver Disease: Yes (HEPATITIS C) Seizures: No Thyroid Disease: No - Surgical History Abdominal Surgery: Yes (EXP.LAP FOR SBO; RESECTION) Appendectomy: Yes Cardiac Surgery: No Cholecystectomy: No Lung Surgery: No Neurologic Surgery: No Orthopedic Surgery: Yes (sinus surgery about 40yrs ago) - Immunization History Immunization Up to Date: Yes - Psycho-Social/Smoking History Smoking Status: Yes Smoking History: Unknown if ever smoked Have you smoked in the past 12 months: No Number of Cigarettes Smoked Daily: 4 If you are a former smoker, when did you quit?: 1 yr ago 'Breaking Loose' booklet given: 11/02/16 *Physical Exam - Physical Exam General Appearance: Yes: Nourished, Appropriately Dressed, Apparent Distress HEENT: positive: EOMI, RAVI, Normal ENT Inspection, Normal Voice, Symmetrical, TMs Normal, Pharynx Normal Neck: positive: Trachea midline, Normal Thyroid Respiratory/Chest: positive: Lungs Clear, Normal Breath Sounds Cardiovascular: positive: Regular Rhythm, Regular Rate, S1, S2 Gastrointestinal/Abdominal: positive: Tender, Guarding, Tenderness Musculoskeletal: positive: Normal Inspection, CVA Tenderness Extremity: positive: Normal Capillary Refill, Normal Inspection Integumentary: positive: Normal Color, Dry, Warm ED Treatment Course - LABORATORY CBC & Chemistry Diagram: 02/04/20 07:21 02/04/20 07:21 Medical Decision Making - Medical Decision Making 69 YOM h/o hep C, copd, multiple sbo presents with abdominal pain and vomiting since 2 am this morning. - tachy to 110s, vitals otherwise wnl - patient is diffusely tender with guarding - cbc, cmp, lacate, CT abdomen with contrast, NPO 02/02/20 14:46 - labs wnl - CT reveals dilated loops of small bowel suggestive of SBO w/ possible free air under the diaphragm - patient going to surgery 02/02/20 14:47 02/04/20 18:01 02/04/20 18:02 02/04/20 18:03 Discharge - Discharge Information Problems reviewed: Yes Clinical Impression/Diagnosis: Small bowel obstruction due to adhesions, Pneumoperitoneum, Abdominal pain, Nausea & vomiting Condition: Stable - Follow up/Referral - Patient Discharge Instructions - Post Discharge Activity
--- OUTSIDE RECORDS SUMMARY | 2020-02-02 10:00 | XMS ---
:1950 Author Organization [facility] Care Team Providers Name Role Phone Triplett, [...] is protected by Article 27-F of the [facility] Public Health law. If you continue you may haveaccess to information: Regarding HIV / AIDS; Provided by facilities licensed or operated by the [facility] Office of Mental Health; or Provided by the [facility] Office for People With Developmental Disabilities. If such information is present, then the following [facility] mandated warning applies: This information has been [...] law may result in a fine or assisted sentence or both. A general authorization for the release of medical or other information is NOT sufficient authorization for further disclosure. Allergies and Adverse Reactions Type Description Substance Reaction Status Data Source(s ) Drug allergy No Known No Known NO KNOWN Rona Sewell Allergies Allergies [facility] No Known No Known No Known eCW3 ([place] [facility] Allergies Allergies [facility]) No Known No Known No Known eCW3 ([place] Allergies Allergies Allergies [facility]) No Information No Information No Information eC W2 ([facility]) Encounters Encounter Providers Location Date Indications Data Source(s ) Outpatient [facility] 12/13/2018 eCW3 ([facility] 12:00:00 AM [facility] - [facility]) 12/13/2018 12:00:00 AM EDT Outpatient [facility] 09/16/2018 eCW3 ([facility] A28 12:00:00 AM [facility] EDT - Care) 09/16/2018 12:00:00 AM EDT Inpatient Attender: 06/13/2018 CERVICAL Rona Triplett 10:30:00 AM MYELOPATHY [facility] MDAdmitter: DR BA Triplett MD 06/19/2018 04:02:00 PM EST CERVICAL MYELOPATHY [facility] [place] 05/30/2018 12:00:00 eCW2 ([facility] AM EST Health Care ) [facility] [place] 04/19/2018 12:00:00 eCW2 ([facility] AM EST Health Care ) [facility] [place] 04/01/2018 12:00:00 eCW2 ([facility] AM EST Health Care ) [facility] 03/15/2018 12:00:00 eCW2 ([facility] AM EST Health Care ) [facility] 03/14/2018 12:00:00 eCW2 ([facility] AM EST Health Care ) [facility] 02/22/2018 12:00:00 eCW2 ([facility] AM EDT Health Care ) [facility] 02/19/2018 12:00:00 eCW2 ([facility] AM EDT Health Care ) [facility] 02/12/2018 12:00:00 eCW2 ([facility] AM EDT Health Care ) [facility] 01/24/2018 12:00:00 eCW2 ([facility] AM EDT Health Care ) [facility] [place] 01/24/2018 12:00:00 eCW2 ([facility] AM EDT Health Care ) [facility] 01/24/2018 12:00:00 eCW2 ([facility] AM EDT Health Care ) [facility] 01/16/2018 12:00:00 eCW2 ([facility] AM EDT Health Care ) [facility] [place] 01/16/2018 12:00:00 eCW2 ([facility] AM EDT Health Care ) [facility] 11/22/2017 12:00:00 [facility]CW2 [facility] 11/15/2017 12:00:00 eCW2 [facility] 10/11/2017 12:00:00 eCW2 ([facility] AM EDT Health Care ) [facility] [place] 09/20/2017 12:00:00 eCW2 ([facility] AM EDT Health Care ) [facility] 06/20/2017 12:00:00 eCW2 ([facility] AM EST Health Care ) [facility] 06/05/2017 12:00:00 eCW2 ([facility] AM EST Health Care ) [facility] [place] 04/05/2017 12:00:00 eCW2 ([facility] AM EST Health Care ) [facility] [place] 03/27/2017 12:00:00 eCW2 ([facility] AM EST Health Care ) [facility] [place] 01/26/2017 12:00:00 eCW2 ([facility] AM EDT Health Care ) [facility] [place] 01/05/2017 12:00:00 eCW2 ([facility] AM EDT Health Care ) [facility] [place] 01/05/2017 12:00:00 eCW2 ([facility] AM EDT Health Care ) [facility] [place] 01/02/2017 12:00:00 eCW2 ([facility] AM EDT Health Care ) [facility] 12/22/2016 12:00:00 eCW2 ([facility] AM EDT Health Care ) [facility] 12/12/2016 12:00: 00 eCW2 ([facility] AM EDT Health Care ) [facility] 12/08/2016 12:00:00 eCW2 ([facility] AM EDT Health Care ) [facility] 12/01/2016 12:00:00 eCW2 ([facility] AM EDT Health Care ) [facility] 11/22/2016 12:00:00 eCW2 ([facility] AM EDT Health Care ) [facility] 11/16/2016 12:00:00 eCW2 ([facility] AM EDT Health Care ) [facility] 11/14/2016 12:00:00 eCW2 ([facility] AM EDT Health Care ) [facility] 11/14/2016 12:00:00 eCW2 ([facility] AM EDT Health Care ) [facility] 11/14/2016 12:00:00 eCW2 ([facility] AM EDT Health Care ) [facility] 11/10/2016 12:00:00 eCW2 ([facility] AM EDT Health Care ) [facility] 10/05/2016 12:00:00 eCW2 ([facility] AM EDT Health Care ) [facility] 10/05/2016 12:00:00 eCW2 ([facility] AM EDT Health Care ) [facility] 09/29/2016 12:00:00 eCW2 ([facility] AM EDT Health Care ) [facility] 09/28/2016 12:00:00 eCW2 [facility] [place] 09/21/2016 12:00:00 eCW2 [facility] [place] 09/21/2016 12:00:00 eCW2 ([facility] AM EDT Health Care ) [facility] 07/26/2016 12:00:00 eCW2 ([facility] AM EDT Health Care ) [facility] 07/03/2016 12:00:00 eCW2 ([facility] AM EST Health Care ) [facility] 06/28/2016 12:00:00 eCW2 ([facility] AM EST Health Care ) [facility] 03/01/2016 12:00:00 eCW2 ([facility] AM EDT Health Care ) [facility] 02/21/2016 12:00:00 eCW2 ([facility] AM EDT Health Care ) [facility] 12/29/2015 12:00:00 eCW2 ([facility] AM EDT Health Care ) [facility] 08/31/2015 12:00:00 eCW2 ([facility] AM EDT Health Care ) [facility] 08/10/2015 12:00:00 eCW2 ([facility] AM EDT Health Care ) [facility] 07/29/2015 12:00:00 eCW2 ([facility] AM EDT Health Care ) [facility] [place] 07/16/2015 12:00:00 eCW2 ([facility] AM EST Health Care ) [facility] 07/09/2015 12:00:00 eCW2 ([facility] AM EST Health Care ) [facility] 07/08/2015 12:00:00 eCW2 ([facility] AM EST Health Care ) [facility] [place] 06/09/2015 12:00:00 eCW2 ([facility] AM EST Health Care ) [facility] [place] 03/08/2015 12:00:00 eCW2 ([facility] AM EST Health Care ) [facility] 03/05/2015 12:00: 00 eCW2 ([facility] AM EDT Health Care ) [facility] 02/19/2015 12:00:00 eCW2 ([facility] AM EDT Health Care ) [facility] 02/12/2015 12:00:00 eCW2 ([facility] AM EDT Health Care ) [facility] [place] 11/27/2014 12:00:00 eCW2 ([facility] AM EDT Health Care ) [facility] 10/02/2014 12:00:00 eCW2 ([facility] AM EDT Health Care ) [facility] 09/24/2014 12:00:00 eCW2 ([facility] AM EDT Health Care ) [facility] 09/10/2014 12:00:00 eCW2 ([facility] AM EDT Health Care ) [facility] 08/27/2014 12:00:00 eCW2 ([facility] AM EDT Health Care ) [facility] 08/24/2014 12:00:00 eCW2 ([facility] AM EDT Health Care ) [facility] [place] 08/21/2014 12:00:00 eCW2 ([facility] AM EDT Health Care ) [facility] 08/19/2014 12:00:00 eCW2 ([facility] AM EDT Health Care ) [facility] [place] 07/30/2014 12:00:00 eCW2 ([facility] AM EDT Health Care ) [facility] 07/24/2014 12:00:00 eCW2 ([facility] AM EDT Health Care ) [facility] 07/23/2014 12:00:00 eCW2 ([facility] AM EDT Health Care ) [facility] 07/16/2014 12:00:00 eCW2 ([facility] AM EDT Health Care ) [facility] 03/25/2014 12:00:00 eCW2 ([facility] AM EST Health Care ) [facility] 02/24/2014 12:00:00 eCW2 ([facility] AM EDT Health Care ) [facility] 02/04/2014 12:00:00 eCW2 ([facility] AM EDT Health Care ) [facility] 01/16/2014 12:00:00 eCW2 ([facility] AM EDT Health Care ) [facility] [place] 12/09/2013 12:00:00 eCW2 ([facility] AM EDT Health Care ) [facility] [place] 10/28/2013 12:00:00 eCW2 ([facility] AM EDT Health Care ) [facility] 10/28/2013 12:00:00 eCW2 ([facility] AM EDT Health Care ) [facility] 09/05/2013 12:00:00 eCW2 ([facility] AM EDT Health Care ) [facility] 08/21/2013 12:00:00 eCW2 ([facility] AM EDT Health Care ) [facility] 08/05/2013 12:00:00 eCW2 ([facility] AM EDT Health Care ) [facility] 07/11/2013 12:00:00 eCW2 ([facility] AM EST Health Care ) [facility] 06/17/2013 12:00:00 eCW2 ([facility] AM EST Health Care ) [facility] 06/03/2013 12:00:00 eCW2 ([facility] AM EST Health Care ) [facility] 05/29/2013 12:00:00 eCW2 ([facility] AM EST Health Care ) [facility] 04/10/2013 12:00:00 eCW2 ([facility] AM EST Health Care ) [facility] 03/13/2013 12:00:00 eCW2 ([facility] AM EST Health Care ) [facility] 12/17/2012 12:00:00 eCW2 ([facility] AM EDT Health Care ) [facility] 12/17/2012 12:00:00 eCW2 ([facility] AM EDT Health Care ) [facility] 12/17/2012 12:00:00 eCW2 ([facility] AM EDT Health Care ) [facility] 12/02/2012 12:00:00 eCW2 [facility] 12:00[facility]00 eCW[facility] ([facility] AM EDT Health Care ) [facility] 09/06/2012 12:00:00 eCW2 ([facility] AM EDT Health Care ) [facility] 07/10/2012 12:00:00 eCW2 ([facility] AM EST Health Care ) [facility] 07/05/2012 12:00:00 eCW2 ([facility] AM EST Health Care ) [facility] 06/20/2012 12:00:00 eCW2 ([facility] AM EST Health Care ) [facility] 06/07/2012 12:00:00 eCW2 ([facility] AM EST Health Care ) [facility] 06/05/2012 12:00:00 eCW2 ([facility] AM EST Health Care ) [facility] 05/09/2012 12:00:00 eCW2 ([facility] AM EST Health Care ) [facility] 04/02/2012 12:00:00 eCW2 ([facility] AM EST Health Care ) [facility] 01/15/2012 12:00:00 eCW2 ([facility] AM EDT Health Care ) [facility] 01/04/2012 12:00:00 eCW2 ([facility] AM EDT Health Care ) [facility] 01/01/2012 12:00:00 eCW2 ([facility] AM EDT Health Care ) [facility] 12/28/2011 12:00:00 eCW2 ([facility] AM EDT Health Care ) [facility] 12/27/2011 12:00:00 eCW2 ([facility] AM EDT Health Care ) [facility] 12/14/2011 12:00:00 eCW2 [facility] 12/14/2011 12:00:00 eCW2 ([facility] AM EDT Health Care ) [facility] 12/12/2011 12:00:00 eCW2 ([facility] AM EDT Health Care ) [facility] 12/06/2011 12:00:00 eCW2 ([facility] AM EDT Health Care ) [facility] 12/06/2011 12:00:00 eCW2 ([facility] AM EDT Health Care ) [facility] 11/13/2011 12:00:00 eCW2 ([facility] AM EDT Health Care ) [facility] 10/16/2011 12:00:00 eCW2 ([facility] AM EDT Health Care ) [facility] 09/20/2011 12:00:00 eCW2 ([facility] AM EDT Health Care ) [facility] 09/15/2011 12:00:00 eCW2 ([facility] AM EDT Health Care ) [facility] 06/02/2011 12:00:00 eCW2 ([facility] AM EST Health Care ) [facility] 05/03/2011 12:00:00 eCW2 ([facility] AM EST Health Care ) [facility] 04/26/2011 12:00:00 eCW2 ([facility] AM EST Health Care ) [facility] 03/24/2011 12:00:00 eCW2 ([facility] AM EST Health Care ) [facility] 12/30/2010 12:00:00 eCW2 ([facility] AM EDT Health Care ) [facility] 12/28/2010 12:00:00 eCW2 ([facility] AM EDT Health Care ) [facility] 12/28/2010 12:00:00 eCW2 ([facility] AM EDT Health Care ) [facility] 12/22/2010 12:00:00 eCW2 ([facility] AM EDT Health Care ) [facility] 12/21/2010 12:00:00 eCW2 ([facility] AM EDT Health Care ) [facility] 11/29/2010 12:00:00 eCW2 ([facility] AM EDT Health Care ) [facility] 11/22/2010 12:00:00 eCW2 ([facility] AM EDT Health Care ) [facility] 11/18/2010 12:00:00 eCW2 ([facility] AM EDT Health Care ) [facility] 11/18/2010 12:00:00 eCW2 ([facility] AM EDT Health Care ) [facility] 11/17/2010 12:00:00 eCW2 ([facility] AM EDT Health Care ) [facility] 07/26/2010 12:00:00 eCW2 ([facility] AM EDT Health Care ) [facility] 07/15/2010 12:00:00 eCW2 ([facility] AM EST Health Care ) [facility] 04/25/2010 12:00:00 eCW2 ([facility] Care ) [facility] 01/25/2010 12:00:00 eCW2 ([facility] Care ) [facility] 01/18/2010 12:00:00 eCW2 ([facility] Care ) [facility] 12/29/2009 12:00:00 eCW2 ([facility] Care ) [facility] 07/19/2009 12:00:00 eCW2 ([facility] Care ) [facility] 05/21/2009 12:00:00 eCW2 ([facility] ) [facility] 03/05/2009 12:00:00 eCW2 ([facility] ) [facility] 01/26/2009 12:00:00 eCW2 ([facility] ) Immunizations Vaccine Date Status Description Data Source(s) No Known Immunizations completed eCW2 ([facility]) Medications Medication Brand Start Product Dose Route Administrative Pharmacy [facility] Indications Reaction Description Data Name [...] B efore White isolone 2019 ed Breakfast [place] (Medrol 12:00: Hospital Dose-Tristan 00 AM 4MG Tab*) 4 EST Mg Tab.ds.pk Hydromorpho Hydrom 06/19/ TABLET complet Ever y 4 White ne orphon 2019 ed Hours as [place] Hydrochlori e Hcl 12:00: needed for Hospital [...] White ne orphon 2019 ed Hours as [place] Hydrochlori e Hcl 12:00: needed for Hospital [...] B efore White isolone 2018 ed Breakfast [place] (Medrol 12:00: Hospital Dose-Tristan 00 AM 4MG [...] Ipratropium rol 00 AM MG/3ML [facility] [place] 0.5-2. EDT Care) 0.167 MG/ML 5 (3) Inhalant MG/3ML Solution Ipratropium -Albuterol 0.5-2.5 (3) MG/3ML Albuterol Ipratr 01/24/ 3.0 suspend Ipratrop ium- eCW3 0.833 MG/ML opium- 2018 {ml} ed Albuterol ( [place] / [place] 12:00: 0.5-2.5 (3) Rive r Ipratropium rol 00 AM MG/3ML [facility] [place] 0.5-2. EDT Care) 0.167 MG/ML 5 (3) [...] Ipratropium rol 00 AM MG/3ML [facility] [place] 0.5-2. EDT Care) 0.167 MG/ML 5 (3) [...] Ipratropium rol 00 AM MG/3ML [facility] [place] 0.5-2. EDT Care) 0.167 MG/ML 5 (3) [...] Ipratropium rol 00 AM MG/3ML [facility] [place] 0.5-2. EDT Care) 0.167 MG/ML 5 (3) [...] l with 2017 {tabl ed Codeine #3 ([place] Codeine Codein 12:00: et_as 300-30 MG Ri bailee Phosphate e #3 00 AM _[facility] 30 MG Oral 300-30 EDT ed} Care) Tablet MG [Tylenol with Codeine] Tylenol with Codeine #3 300-30 MG Albuterol Ipratr 12/01/ active Ipratropi um- eCW3 0.833 MG/ML opium- 2016 Albuterol ( [place] / [place] 12:00: 0.5-2.5 (3) Rive r Ipratropium rol 00 AM MG/3ML [facility] [place] 0.5-2. EDT Care) 0.167 MG/ML 5 (3) Inhalant MG/3ML Solution Ipratropium -Albuterol 0.5-2.5 (3) MG/3ML Acetaminoph Tyleno .0 suspend Tyleno l with eCW3 en 300 MG / l with 2017 {tabl ed Codeine #3 ([place] Codeine Codein 12:00: et_as 300-30 MG Ri [place] Phosphate e #3 00 AM [facility] 30 MG Oral 300-30 EDT ed} Care) Tablet MG [Tylenol with Codeine] Tylenol with Codeine #3 300-30 MG Albuterol Ipratr 12/01/ active Ipratropi um- eCW3 0.833 MG/ML opium- 2016 Albuterol ( [place] / [place] 12:00: 0.5-2.5 (3) Rive r Ipratropium rol 00 AM MG/3ML [facility] [place] 0.5-2. EDT Care) 0.167 MG/ML 5 (3) [...] Ipratropium rol 00 AM MG/3ML [facility] [place] 0.5-2. EDT Care) 0.167 MG/ML 5 (3) [...] Ipratropium rol 00 AM MG/3ML [facility] [place] 0.5-2. EDT Care) 0.167 MG/ML 5 (3) Inhalant MG/3ML Solution Ipratropium -Albuterol 0.5-2.5 (3) MG/3ML Albuterol Ipratr 11/16/ suspend Ipratrop ium- eCW3 0.833 MG/ML opium- 2017 ed Albuterol ( [place] / [place] 12:00: 0.5-2.5 (3) Rive r Ipratropium rol 00 AM MG/3ML [facility] [place] 0.5-2. EDT Care) 0.167 MG/ML 5 (3) [...] Ipratropium rol 00 AM mg/3ml [facility] [place] 0.5-2. EST Care) 0.167 MG/ML 5 (3) Inhalant mg/3ml Solution Ipratropium -Albuterol 0.5-2.5 (3) mg/3ml 120 ACTUAT COMBIV 2.0 suspend COMBIVE NT eCW3 Albuterol ENT 2016 {puff ed RESPIMAT ([place] 0.1 RESPIM 12:00: } 20-100 [place] MG/ACTUAT / AT 00 AM mcg/act Heal th Ipratropium 20-100 EST Care) [place] mcg/ac 0.02 t MG/ACTUAT Metered Dose Inhaler [Combivent] COMBIVENT RESPIMAT 20-100 mcg/act 120 ACTUAT COMBIV 2.0 suspend COMBIVE NT eCW3 Albuterol ENT 2017 {puff ed RESPIMAT ([place] 0.1 RESPIM 12:00: } 20-100 [place] MG/ACTUAT / AT 00 AM mcg/act Heal th Ipratropium 20-100 EST Care) [place] mcg/ac 0.02 t MG/ACTUAT Metered Dose Inhaler [Combivent] COMBIVENT RESPIMAT 20-100 mcg/act Albuterol Ipratr 07/03/ suspend Ipratrop ium- eCW3 0.833 MG/ML opium- 2017 ed Albuterol ( [place] / [place] 12:00: 0.5-2.5 (3) R[place] r Ipratropium rol 00 AM mg/3ml [facility] [place] 0.5-2. EST Care) 0.167 MG/ML 5 (3) [...] Dextrometho Promet .0 suspend Promet hazine eCW3 [facility] 3 2015 {ml_a ed -DM 6.25-15 (H udson MG/ML / -DM 12:00: s_nee MG/5ML [place] Promethazin 6.25-1 00 AM ded} Healt h e 5 EDT Care) Hydrochlori MG/5ML de 1.25 MG/ML Oral Solution Promethazin e-DM 6.25-15 MG/5ML Dextrometho Promet .0 suspend Promet hazine eCW3 [facility] 3 2015 {ml_a ed -DM 6.25-15 [...] ed s ([place] 12:00: [place] 00 AM [facility] EDT Care) Naproxen Naprox TABLET 500 complet Twice A D ay [place] 500 MG Oral en mg ed [place] Tablet ([facility] [Naprosyn] syn Naproxen Tablet (Naprosyn *) 500 [...] 300 MG Oral ntin mg ed Daily [place] Capsule (Neuro [facility] [Neurontin] ntin Gabapentin Capsul (Neurontin e*) Capsule*) 300 Mg 300 Mg Cap Cap Ensure Ensure active Ensure eCW3 Enlive - Enlive Enlive - ([facility]) Unknown complet eCW2 Medications ed ([facility]) Albuterol Ipratr 3.0 active Ipratropium - eCW3 0.833 MG/ML opium- {ml} Albuterol ( [place] / [place] 0.5-2.5 (3) [place] Ipratropium rol MG/3ML [facility] [place] 0.5-2. Care) 0.167 MG/ML 5 (3) Inhalant [...] 20 ug complet [place] Albuterol opium/ ed [place] 0.1 [facility] MG/ACTUAT / rol Ipratropium Sulfat [place] e 0.02 (Combi MG/ACTUAT vent Metered Respim Dose at Inhaler Inhal [Combivent] Sod) Ipratropium 20 /Albuterol Mcg-10 Sulfate 0 (Combivent Mcg/Ac Respimat tuatio Inhal n Sod) 20 Aer.w. Mcg-100 adap Mcg/Actuati on Aer.w.adap [...] complet Twice A Day [place] Xinafoate/F ed [place] [facility] (Advair 250/50 Diskus*) 250 Mcg-50 Mcg/Dose Blst.w.dev 60 ACTUAT Advair 1.0 suspend Advair eCW 3 Fluticasone Diskus {puff ed Diskus (Hu dson propionate 250-50 } 250-50 [place] 0.25 MCG/DO MCG/DOSE Health MG/ACTUAT / SE Care) salmeterol 0.05 MG/ACTUAT Dry Powder Inhaler [Advair] Advair Diskus 250-50 MCG/DOSE Naproxen Naprox TABLET 500 complet Twice A D ay [place] 500 MG Oral en mg ed [place] Tablet ([facility] [Naprosyn] syn Naproxen Tablet (Naprosyn *) 500 Tablet*) Mg 500 Mg Tablet Tablet, 500 , 500 Mg Oral Mg Oral 120 ACTUAT Ipratr AEROSOL 20 ug complet [place] Albuterol opium/ ed [place] 0.1 [facility] MG/ACTUAT / rol Ipratropium Sulfat [place] e 0.02 (Combi MG/ACTUAT vent Metered Respim Dose at Inhaler Inhal [Combivent] Sod) Ipratropium 20 /Albuterol Mcg-10 Sulfate 0 (Combivent Mcg/Ac Respimat tuatio Inhal n Sod) 20 Aer.w. Mcg-100 adap Mcg/Actuati on Aer.w.adap Albuterol Ipratr 3.0 active Ipratropium - eCW3 0.833 MG/ML opium- {ml} Albuterol ( [place] / [place] 0.5-2.5 (3) [place] Ipratropium rol MG/3ML [facility] [place] 0.5-2. Care) 0.167 MG/ML 5 (3) Inhalant MG/3ML Solution Ipratropium -Albuterol 0.5-2.5 (3) MG/3ML Salmeterol 1 complet Twice A Day [place] Xinafoate/F ed [facility] (Advair 250/50 Diskus*) 250 Mcg-50 Mcg/Dose [...] 300 MG Oral ntin mg ed Daily [place] Capsule ([facility] [Neurontin] ntin Gabapentin Capsul (Neurontin e*) Capsule*) [...] Ensure eCW3 Enlive - Enlive Enlive - ([facility]) Acetaminoph Oxycod TABLET 1 complet Every 4 [...] [place] [facility] ormation type victoria SIENA MEDICARE [id number] SP [id number] MEDICAID [id number] SP [id number] SUSIE [id number] SP [id number] 100 MEDICARE ADV PLAN MEDICAID OF [id number] 1 [id number] [place] CARE [id number] 1 [id number] [place] [id number] 1 [id number] MEDICARE ADVANTAGE MEDICAID [id number] PT [id number] SUSIE [id number] PT [id number] 100 MEDICARE ADVANTAGE BETTER [id number] PT [id number] 100 HEALTH/FIDELI S MEDICARE [id number] PT [id number] A Problems, Conditions, and Diagnoses Code Display Name Description Problem Type Effective Data Sour ce(s) Dates E63.9 Nutritional Nutritional Problem 04/21/2019 eCW3 ([place] deficiency deficiency 12:00:00 AM [facility] EST Care) M54.40 Lumbago with Lumbago with Problem 04/10/2019 eCW3 ([place] sciatica, sciatica, 12:00:00 AM [facility] unspecified side unspecified side EST Ca re) R63.0 Poor appetite Poor appetite Problem 04/10/2019 eCW3 (Hu dson 12:00:00 AM [facility] EST Care) G89.29 Other chronic pain Other chronic pain Problem 9 eCW3 ([place] 12:00:00 AM [facility] EST Care) H62.40 Otitis externa in Otitis externa in Problem 04/10/2019 eCW3 ([place] other diseases other diseases 12:00:00 AM [facility] classified classified EST Care) elsewhere, elsewhere, unspecified ear unspecified ear M54.32 Sciatica of left Sciatica of left Problem 12/13/2018 eC W3 ([place] side side 12:00:00 AM [facility] EDT Care) M54.31 Sciatica, right Sciatica, right [...] Problem 06/20/2017 eCW2 ( [place] 12:00:00 AM [facility] EST Care) J44.9 COPD - Chronic COPD (chronic Problem 04/05/2017 eCW3 ([place] obstructive obstructive 12:00:00 AM [place] [facility] pulmonary disease pulmonary disease) EST Care) J44.9 COPD - Chronic COPD (chronic Problem 04/05/2017 eCW2 ([place] obstructive obstructive 12:00:00 AM [place] [facility] Care) 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 Problem 12/01/2016 eCW3 ([place] disc disorder 12:00:00 AM [facility] EDT Care) 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 Problem 12/01/2016 eCW2 ([place] disc disorder 12:00:00 AM [facility] EDT Care) K90.9 Malabsorption Malabsorption Problem 11/14/2016 eCW3 ([facility] 12:00:00 AM [facility] EDT Care) K90.9 Malabsorption Malabsorption Problem 11/14/2016 eCW2 ([facility] 12:00:00 AM [facility] EDT Care) Z72.0 Tobacco abuse Tobacco abuse Problem 03/01/2016 eCW3 ([facility] 12:00:00 AM [facility] EDT Care) Z78.9 Patient has Patient has Problem 03/01/2016 eCW3 ([place] healthcare proxy healthcare proxy 12:00:00 AM [facility] EDT Care) H91.91 Hearing loss, Hearing loss, Problem 03/01/2016 eCW3 ([place] right right 12:00:00 AM [facility] EDT Care) H10.13 Allergic Allergic Problem 03/01/2016 eCW3 ([place] conjunctivitis, conjunctivitis, 12:00:00 AM [facility] bilateral bilateral EDT Care) Z78.9 Patient has Patient has Problem 03/01/2016 eCW2 ([place] healthcare proxy healthcare proxy 12:00:00 AM R [facility] EDT Care) H10.13 Allergic Allergic Problem 03/01/2016 eCW2 ([place] conjunctivitis, conjunctivitis, 12:00:00 AM [facility] bilateral bilateral EDT Care) H91.91 Hearing loss, Hearing loss, Problem 03/01/2016 eCW2 ([facility] right right 12:00:00 AM [facility] EDT Care) Z72.0 Tobacco abuse Tobacco abuse [...] EST Care) R26.9 Unspecified R26.9 Diagnosis 06/14/2018 [place] abnormalities of 10:58:00 AM Hospita l gait and mobility EST Z86.19 Personal history Z86.19 Diagnosis 06/14/2018 [place] of other 10:58:00 AM Hospital infectious and EST parasitic diseases F17.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.200 Diagnosis 06/14/2018 [place] dependence, 10:58:00 AM Hospital unspecified, EST uncomplicated J44.9 Chronic J44.9 Diagnosis 06/14/2018 [place] obstructive 10:58:00 AM Hospital pulmonary disease, EST unspecified M25.78 Osteophyte, M25.78 Diagnosis 06/14/2018 [place] vertebrae 10:58:00 AM Hospital EST M48.02 Spinal stenosis, M48.02 Diagnosis 06/14/2018 [place] cervical region 10:58:00 AM Hospital EST M50.01 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, high EST cervical region Surgeries/Procedures Procedure Description Date Indications Data Source(s) Injection, ketorolac 12/13/2018 eCW3 ([facility] tromethamine, per 15 12:00:00 AM Health Care) mg EDT Oral medication 09/16/2018 eCW3 ([place] administration, 12:00:00 AM Health Care) direct observation EDT X-ray of cervical X-ray of cervical 06/15/2018 [place] spine, flexion and spine, flexion and 12:00:00 AM Hos pital extension views only extension views only EST X-ray of cervical X-ray of cervical 06/15/2018 [place] spine, flexion and spine, flexion and 12:00:00 AM Hos pital extension views only extension views only EST X-ray of cervical X-ray of cervical 06/13/2018 [place] spine, flexion and spine, flexion and 12:00:00 AM Hos pital extension views only extension views only EST Fluoroscopy with Fluoroscopy with 06/13/2018 Rona schumacher C-arm for 60 minutes C-arm for 60 minutes 12:00:00 AM Hospital EST Fusion, spine, Fusion, spine, 06/13/2018 [place] cervical, anterior cervical, anterior 12:00:00 AM Hos pital approach approach EST X-ray of cervical X-ray of cervical 06/13/2018 [place] spine, flexion and spine, flexion and 12:00:00 AM Hos pital extension views only extension views only EST Fluoroscopy with Fluoroscopy with 06/13/2018 Rona schumacher C-arm for 60 minutes C-arm for 60 minutes 12:00:00 AM Hospital EST Fusion, spine, Fusion, spine, 06/13/2018 [place] cervical, anterior cervical, anterior 12:00:00 AM Hos pital approach approach EST No Known procedures No Known procedures e [facility] ([facility]) Results ID Date Data Source [id number] 01/21/2020 02:04:00 AM EDT [facility] Name Value Range Interpretation Description Data Sup porting Code Source(s) Document(s ) SARS [facility] coronavirus 2 RNA This lab was ordered by [facility] and reported by [facility]. ID Date Data Source [id number] 12/30/2019 04:30:00 AM EDT [facility] Name Value Range Interpretation Description Data Sup porting Code Source(s) Document(s ) SARS [facility] coronavirus 2 RNA This lab was ordered by [facility] and reported by [facility]. ID Date Data Source [id number] 06/16/2018 05:53:00 AM [facility] Value Range Interpretation Description Data Sup porting Code Source(s) Document(s ) Calcium 8.7 mg/dL 8.3-10.6 CALCIUM [place] [Mass/volum Hospital e] in Serum or Plasma ID Date Data Source [id number] 06/16/2018 05:53:[address] [facility] Name Value Range Interpretation Description Data Sup porting Code Source(s) Document(s ) Urea 14.1 6.0-20.0 BUN/CREATININE [place] nitrogen/C RATIO Hospital reatinine [Mass Ratio] in Serum or Plasma ID Date Data Source [id number] 06/16/2018 05:53:[address] [facility] Name Value Range Interpretation Description Data Sup porting Code Source(s) Document(s ) Creatinine 0.8 0.9-1.3 Below low normal CREATININE [place] [Mass/volume] mg/dL Hospital in Serum or Plasma ID Date Data Source [id number] 06/16/2018 05:53:[address] [facility] Name Value Range Interpretation Description Data Sup porting Code Source(s) Document(s ) Urea 12 mg/dL 6-20 BLOOD UREA [place] nitrogen NITROGEN Hospital [Mass/volume ] in Serum or Plasma ID Date Data Source [id number] 06/16/2018 05:53:00 AM [facility] Value Range Interpretation Code Description Data Vandana rce(s) Supporting Document(s ) Anion gap in 12 6-18 ANION GAP [place] Serum or [facility] Plasma ID Date Data Source [id number] 06/16/2018 05:53:00 AM [facility] Value Range Interpretation Description Data Sup porting Code Source(s) Document(s ) Carbon 30 mmol/L 23-31 CARBON DIOXIDE [place] dioxide, Hospital total [Moles/vol ume] in Serum or Plasma ID Date Data Source [id number] 06/16/2018 05:53:00 AM [facility] Value Range Interpretation Description Data Sup porting Code Source(s) Document(s ) Chloride 100 98-107 CHLORIDE [place] [Moles/volum mmol/L Hospital e] in Serum or Plasma ID Date Data Source [id number] 06/16/2018 05:53:[address] [facility] Name Value Range Interpretation Description Data Sup porting Code Source(s) Document(s ) Potassium 4.8 3.5-5.3 POTASSIUM [place] [Moles/volume mmol/L Hospital ] in Serum or Plasma ID Date Data Source [id number] 06/16/2018 05:53:[address] [facility] Name Value Range Interpretation Description Data Sup porting Code Source(s) Document(s ) Sodium 137 136-145 SODIUM [place] [Moles/vol mmol/L Hospital ume] in Serum or Plasma ID Date Data Source [id number] 06/16/2018 05:53:00 AM [facility] Name Value Range Interpretation Description Data Sup porting Code Source(s) Document(s ) Glucose 120 mg/dL 74-106 Above high normal GLUCOSE [place] [Mass/volum Hospital e] in Serum or Plasma ID Date Data Source [id number] 06/16/2018 05:53:00 AM [facility] Name Value Range Interpretation Code Description Data Vandana rce(s) Supporting Document(s ) 0.0 % 0-0.2 NUCLEATED RBCS [place] (AUTO DIFF%)DIS Hospital ID Date Data Source [id number] 06/16/2018 05:53:00 AM EST [facility] Value Range Interpretation Description Data Sup porting Code Source(s) Document(s ) Differential MANUAL DIFF TYPE [place] cell count Hospital method - Blood ID Date Data Source [id number] 06/16/2018 05:53:00 AM [facility] Value Range Interpretation Description Data Sup porting Code Source(s) Document(s ) Cells 100 DIFF CELLS [place] Counted COUNTED Hospital Total [#] in Blood ID Date Data Source [id number] 06/16/2018 05:53:00 AM [facility] Value Range Interpretation Code Description Data Vandana rce(s) Supporting Document(s ) NORMAL PLATELET COMMENT [facility] ID Date Data Source [id number] 06/16/2018 05:53:00 AM [facility] Name Value Range Interpretation Code Description Data Vandana rce(s) Supporting Document(s ) OCC SCHISTOCYTES [facility] ID Date Data Source [id number] 06/16/2018 05:53:00 AM EST [place] [facility] Name Value Range Interpretation Code Description Data Vandana rce(s) Supporting Document(s ) OCC ELLIPTOCYTES [facility] ID Date Data Source [id number] 06/16/2018 05:53:00 AM EST [place] [facility] Name Value Range Interpretation Code Description Data Vandana rce(s) Supporting Document(s ) OCC TARGET CELLS [facility] ID Date Data Source [id number] 06/16/2018 05:53:00 AM EST [place] [facility] Name Value Range Interpretation Code Description Data Vandana rce(s) Supporting Document(s ) OCC OVALOCYTES [facility] ID Date Data Source [id number] 06/16/2018 05:53:00 AM EST [place] [facility] Name Value Range Interpretation Code Description Data Vandana rce(s) Supporting Document(s ) OCC POLYCHROMASIA [facility] ID Date Data Source [id number] 06/16/2018 05:53:00 AM EST [place] [facility] Name Value Range Interpretation Code Description Data Vandana rce(s) Supporting Document(s ) OCC MICROCYTOSIS [facility] ID Date Data Source [id number] 06/16/2018 05:53:00 AM EST [place] [facility] Name Value Range Interpretation Code Description Data Vandana rce(s) Supporting Document(s ) OCC POIKILOCYTOSIS [facility] ID Date Data Source [id number] 06/16/2018 05:53:00 AM EST [place] [facility] Name Value Range Interpretation Code Description Data Vandana rce(s) Supporting Document(s ) OCC ANISOCYTOSIS [facility] ID Date Data Source [id number] 06/16/2018 05:53:00 AM [facility] Hospital Name Value Range Interpretation Description Data Sup porting Code Source(s) Document(s ) Monocytes 1.02 0.0-1.0 Above high normal MONOCYTES (MAN [place] [#/volume] 10*3/uL DIFF #) Hospital in Blood by Manual count ID Date Data Source [id number] 06/16/2018 05:53:00 AM [facility] Name Value Range Interpretation Description Data Sup porting Code Source(s) Document(s ) Lymphocytes 0.60 1.2-3.5 Below low normal LYMPHOCYTES [place] [#/volume] in 10*3/uL (MAN DIFF #) [place] Blood by Hospital Manual count ID Date Data Source [id number] 06/16/2018 05:53:00 AM [facility] Value Range Interpretation Description Data Sup porting Code Source(s) Document(s ) Neutrophils 6.89 1.5-6.6 Above high normal NEUTROPHILS [place] [#/volume] in 10*3/uL (MAN DIFF #) [place] Blood by Hospital Manual count ID Date Data Source [id number] 06/16/2018 05:53:00 AM [facility] Value Range Interpretation Description Data Sup porting Code Source(s) Document(s ) Monocytes/100 12 % 2.0-12.0 MONOCYTES [place] leukocytes in Hospital Blood by Manual count ID Date Data Source [id number] 06/16/2018 05:53:00 AM [facility] Name Value Range Interpretation Description Data Sup porting Code Source(s) Document(s ) Lymphocytes/10 7 % 20.0-48.0 Below low normal LYMPHOCYTES [place] 0 leukocytes Hospital in Blood by Manual count ID Date Data Source [id number] 06/16/2018 05:53:00 AM [facility] Hospital Name Value Range Interpretation Description Data Sup porting Code Source(s) Document(s ) Band form 1 % 0-6.0 BANDS [place] neutrophils/100 Hospital leukocytes in Blood ID Date Data Source [id number] 06/16/2018 05:53:00 AM [facility] Name Value Range Interpretation Description Data Sup porting Code Source(s) Document(s ) Neutrophils/10 80 % 40.0-75. Above high normal SEGMENTED [place] 0 leukocytes 0 NEUTROPHILS Hospital in Blood by Manual count ID Date Data Source [id number] 06/16/2018 05:53:00 AM [facility] Name Value Range Interpretation Description Data Sup porting Code Source(s) Document(s ) Platelet 10.2 fL 9.6-12.8 MEAN PLATELET [place] mean volume VOLUME Hospital [Entitic volume] in Blood by Automated count ID Date Data Source [id number] 06/16/2018 05:53:00 AM [facility] Value Range Interpretation Description Data Sup porting Code Source(s) Document(s ) Platelets 193 150-400 PLATELET COUNT [place] [#/volume] 10*3/uL Hospital in Blood by Automated count ID Date Data Source [id number] 06/16/2018 05:53:00 AM [facility] Value Range Interpretation Description Data Sup porting Code Source(s) Document(s ) Erythrocyte 14.2 % 11.5-14. RED CELL [place] distribution 5 DISTRIBUTION [place] width [Ratio] WIDTH Hospital by Automated count ID Date Data Source [id number] 06/16/2018 05:53:00 AM [facility] Name Value Range Interpretation Description Data Sup porting Code Source(s) Document(s ) Erythrocyte mean 32.6 31.0-36. MEAN [place] corpuscular g/dL 0 CORPUSCULAR [place] hemoglobin HGB CONCEN Hospital concentration [Mass/volume] by Automated count ID Date Data Source [id number] 06/16/2018 05:53:00 AM [facility] Name Value Range Interpretation Description Data Sup porting Code Source(s) Document(s ) Erythrocyte 26.8 pg 27.0-34. Below low normal MEAN [place] mean 0 CORPUSCULAR [place] corpuscular HEMOGLOBIN [facility] hemoglobin [Entitic mass] by Automated count ID Date Data Source [id number] 06/16/2018 05:53:00 AM [facility] Value Range Interpretation Description Data Sup porting Code Source(s) Document(s ) Erythrocyte 82.3 fL 80.0-96. MEAN [place] mean 0 CORPUSCULAR [place] corpuscular VOLUME Hospital volume [Entitic volume] by Automated count ID Date Data Source [id number] 06/16/2018 05:53:00 AM [facility] Value Range Interpretation Description Data Sup porting Code Source(s) Document(s ) Hematocrit 33.4 % 42.0-50.0 Below low normal HEMATOCRIT [place] [Volume Hospital Fraction] of Blood by Automated count ID Date Data Source [id number] 06/16/2018 05:53:00 AM [facility] Value Range Interpretation Description Data Sup porting Code Source(s) Document(s ) Hemoglobin 10.9 13.6-17. Below low normal HEMOGLOBIN [place] [Mass/volume] g/dL 0 Hospital in Blood ID Date Data Source [id number] 06/16/2018 05:53:00 AM [facility] Value Range Interpretation Description Data Sup porting Code Source(s) Document(s ) Erythrocytes 4.06 4.50-5.9 Below low normal RED BLOOD [place] [#/volume] in 10*6/uL 0 CELL COUNT [place] Blood by Hospital Automated count ID Date Data Source [id number] 06/16/2018 05:53:00 AM [facility] Value Range Interpretation Description Data Sup porting Code Source(s) Document(s ) Leukocytes 8.5 4.0-10.0 WHITE BLOOD [place] [#/volume] in 10*3/uL CELL COUNT Hospital Blood by Automated count ID Date Data Source [id number] 06/16/2018 05:53:00 AM [facility] Hospital Name Value Range Interpretation Description Data Sup porting Code Source(s) Document(s ) Calcium 8.7 mg/dL 8.3-10.6 CALCIUM [place] [Mass/volum Hospital e] in Serum or Plasma ID Date Data Source [id number] 06/16/2018 05:53:00 AM [facility] Hospital Name Value Range Interpretation Description Data Sup porting Code Source(s) Document(s ) Urea 14.1 6.0-20.0 BUN/CREATININE [place] nitrogen/C RATIO Hospital reatinine [Mass Ratio] in Serum or Plasma ID Date Data Source [id number] 06/16/2018 05:53:00 AM [facility] Name Value Range Interpretation Description Data Sup porting Code Source(s) Document(s ) Creatinine 0.8 0.9-1.3 Below low normal CREATININE [place] [Mass/volume] mg/dL Hospital in Serum or Plasma ID Date Data Source [id number] 06/16/2018 05:53:00 AM [facility] Hospital Name Value Range Interpretation Description Data Sup porting Code Source(s) Document(s ) Urea 12 mg/dL 6-20 BLOOD UREA [place] nitrogen NITROGEN Hospital [Mass/volume ] in Serum or Plasma ID Date Data Source [id number] 06/16/2018 05:53:00 AM [facility] Hospital Name Value Range Interpretation Code Description Data Vandana rce(s) Supporting Document(s ) Anion gap in 12 6-18 ANION GAP [place] Serum or Hospital Plasma ID Date Data Source [id number] 06/16/2018 05:53:00 AM [facility] Hospital Name Value Range Interpretation Description Data Sup porting Code Source(s) Document(s ) Carbon 30 mmol/L 23-31 CARBON DIOXIDE [place] dioxide, Hospital total [Moles/vol ume] in Serum or Plasma ID Date Data Source [id number] 06/16/2018 05:53:00 AM [facility] Hospital Name Value Range Interpretation Description Data Sup porting Code Source(s) Document(s ) Chloride 100 98-107 CHLORIDE [place] [Moles/volum mmol/L Hospital e] in Serum or Plasma ID Date Data Source [id number] 06/16/2018 05:53:00 AM [facility] Hospital Name Value Range Interpretation Description Data Sup porting Code Source(s) Document(s ) Potassium 4.8 3.5-5.3 POTASSIUM [place] [Moles/volume mmol/L Hospital ] in Serum or Plasma ID Date Data Source [id number] 06/16/2018 05:53:00 AM [facility] Hospital Name Value Range Interpretation Description Data Sup porting Code Source(s) Document(s ) Sodium 137 136-145 SODIUM [place] [Moles/vol mmol/L Hospital ume] in Serum or Plasma ID Date Data Source [id number] 06/16/2018 05:53:00 AM [facility] Hospital Name Value Range Interpretation Description Data Sup porting Code Source(s) Document(s ) Glucose 120 mg/dL 74-106 Above high normal GLUCOSE [place] [[facility] e] in Serum or Plasma ID Date Data Source [id number] 06/16/2018 05:53:00 AM [facility] Hospital Name Value Range Interpretation Code Description Data Vandana rce(s) Supporting Document(s ) 0.0 % 0-0.2 NUCLEATED RBCS [place] (AUTO DIFF%)DIS Hospital ID Date Data Source [id number] 06/16/2018 05:53:[address] [facility] Name Value Range Interpretation Description Data Sup porting Code Source(s) Document(s ) Differential MANUAL DIFF TYPE [place] cell count Hospital method - Blood ID Date Data Source [id number] 06/16/2018 05:53:00 AM EST [place] [facility] Name Value Range Interpretation Description Data Sup porting Code Source(s) Document(s ) Cells 100 DIFF CELLS [place] Counted COUNTED Hospital Total [#] in Blood ID Date Data Source [id number] 06/16/2018 05:53:00 AM EST [facility] Value Range Interpretation Code Description Data Vandana rce(s) Supporting Document(s ) NORMAL PLATELET COMMENT [facility] ID Date Data Source [id number] 06/16/2018 05:53:[address] [facility] Name Value Range Interpretation Code Description Data Vandana rce(s) Supporting Document(s ) OCC SCHISTOCYTES [facility] ID Date Data Source [id number] 06/16/2018 05:53:00 AM [facility] Value Range Interpretation Code Description Data Vandana rce(s) Supporting Document(s ) OCC ELLIPTOCYTES [facility] ID Date Data Source [id number] 06/16/2018 05:53:[address] [facility] Name Value Range Interpretation Code Description Data Vandana rce(s) Supporting Document(s ) OCC TARGET CELLS [facility] ID Date Data Source [id number] 06/16/2018 05:53:[address] [facility] Name Value Range Interpretation Code Description Data Vandana rce(s) Supporting Document(s ) OCC OVALOCYTES [facility] ID Date Data Source [id number] 06/16/2018 05:53:00 AM [facility] Name Value Range Interpretation Code Description Data Vandana rce(s) Supporting Document(s ) OCC POLYCHROMASIA [facility] ID Date Data Source [id number] 06/16/2018 05:53:00 AM [facility] Name Value Range Interpretation Code Description Data Vandana rce(s) Supporting Document(s ) OCC MICROCYTOSIS [facility] ID Date Data Source [id number] 06/16/2018 05:53:00 AM [facility] Value Range Interpretation Code Description Data Vandana rce(s) Supporting Document(s ) OCC POIKILOCYTOSIS [facility] ID Date Data Source [id number] 06/16/2018 05:53:00 AM [facility] Value Range Interpretation Code Description Data Vandana rce(s) Supporting Document(s ) OCC ANISOCYTOSIS [facility] ID Date Data Source [id number] 06/16/2018 05:53:00 AM [facility] Value Range Interpretation Description Data Sup porting Code Source(s) Document(s ) Monocytes 1.02 0.0-1.0 Above high normal MONOCYTES (MAN [place] [#/volume] 10*3/uL DIFF #) Hospital in Blood by Manual count ID Date Data Source [id number] 06/16/2018 05:53:00 AM [facility] Hospital Name Value Range Interpretation Description Data Sup porting Code Source(s) Document(s ) Lymphocytes 0.60 1.2-3.5 Below low normal LYMPHOCYTES [place] [#/volume] in 10*3/uL (MAN DIFF #) [place] Blood by Hospital Manual count ID Date Data Source [id number] 06/16/2018 05:53:00 AM [facility] Hospital Name Value Range Interpretation Description Data Sup porting Code Source(s) Document(s ) Neutrophils 6.89 1.5-6.6 Above high normal NEUTROPHILS [place] [#/volume] in 10*3/uL (MAN DIFF #) [place] Blood by Hospital Manual count ID Date Data Source [id number] 06/16/2018 05:53:00 AM [facility] Name Value Range Interpretation Description Data Sup porting Code Source(s) Document(s ) Monocytes/100 12 % 2.0-12.0 MONOCYTES [place] leukocytes in [facility] Blood by Manual count ID Date Data Source [id number] 06/16/2018 05:53:00 AM [facility] Hospital Name Value Range Interpretation Description Data Sup porting Code Source(s) Document(s ) Lymphocytes/10 7 % 20.0-48.0 Below low normal LYMPHOCYTES [place] 0 leukocytes Hospital in Blood by Manual count ID Date Data Source [id number] 06/16/2018 05:53:00 AM [facility] Hospital Name Value Range Interpretation Description Data Sup porting Code Source(s) Document(s ) Band form 1 % 0-6.0 BANDS [place] neutrophils/100 Hospital leukocytes in Blood ID Date Data Source [id number] 06/16/2018 05:53:00 AM [facility] Name Value Range Interpretation Description Data Sup porting Code Source(s) Document(s ) Neutrophils/10 80 % 40.0-75. Above high normal SEGMENTED [place] 0 leukocytes 0 NEUTROPHILS Hospital in Blood by Manual count ID Date Data Source [id number] 06/16/2018 05:53:00 AM [facility] Hospital Name Value Range Interpretation Description Data Sup porting Code Source(s) Document(s ) Platelet 10.2 fL 9.6-12.8 MEAN PLATELET [place] mean volume VOLUME Hospital [Entitic volume] in Blood by Automated count ID Date Data Source [id number] 06/16/2018 05:53:00 AM [facility] Name Value Range Interpretation Description Data Sup porting Code Source(s) Document(s ) Platelets 193 150-400 PLATELET COUNT [place] [#/volume] 10*3/uL Hospital in Blood by Automated count ID Date Data Source [id number] 06/16/2018 05:53:00 AM [facility] Value Range Interpretation Description Data Sup porting Code Source(s) Document(s ) Erythrocyte 14.2 % 11.5-14. RED CELL [place] distribution 5 DISTRIBUTION [place] width [Ratio] WIDTH Hospital by Automated count ID Date Data Source [id number] 06/16/2018 05:53:00 AM [facility] Value Range Interpretation Description Data Sup porting Code Source(s) Document(s ) Erythrocyte mean 32.6 31.0-36. MEAN [place] corpuscular g/dL 0 CORPUSCULAR [place] hemoglobin HGB CONCEN Hospital concentration [Mass/volume] by Automated count ID Date Data Source [id number] 06/16/2018 05:53:00 AM [facility] Value Range Interpretation Description Data Sup porting Code Source(s) Document(s ) Erythrocyte 26.8 pg 27.0-34. Below low normal MEAN [place] mean 0 CORPUSCULAR [place] corpuscular HEMOGLOBIN Hospital hemoglobin [Entitic mass] by Automated count ID Date Data Source [id number] 06/16/2018 05:53:00 AM [facility] Value Range Interpretation Description Data Sup porting Code Source(s) Document(s ) Erythrocyte 82.3 fL 80.0-96. MEAN [place] mean 0 CORPUSCULAR [place] corpuscular VOLUME Hospital volume [Entitic volume] by Automated count ID Date Data Source [id number] 06/16/2018 05:53:00 AM [facility] Value Range Interpretation Description Data Sup porting Code Source(s) Document(s ) Hematocrit 33.4 % 42.0-50.0 Below low normal HEMATOCRIT [place] [Volume Hospital Fraction] of Blood by Automated count ID Date Data Source [id number] 06/16/2018 05:53:00 AM [facility] Name Value Range Interpretation Description Data Sup porting Code Source(s) Document(s ) Hemoglobin 10.9 13.6-17. Below low normal HEMOGLOBIN [place] [Mass/volume] g/dL 0 Hospital in Blood ID Date Data Source [id number] 06/16/2018 05:53:00 AM [facility] Name Value Range Interpretation Description Data Sup porting Code Source(s) Document(s ) Erythrocytes 4.06 4.50-5.9 Below low normal RED BLOOD [place] [#/volume] in 10*6/uL 0 CELL COUNT [place] Blood by Hospital Automated count ID Date Data Source [id number] 06/16/2018 05:53:00 AM [facility] Name Value Range Interpretation Description Data Sup porting Code Source(s) Document(s ) Leukocytes 8.5 4.0-10.0 WHITE BLOOD [place] [#/volume] in 10*3/uL CELL COUNT [facility] Blood by Automated count ID Date Data Source [id number] 06/13/2018 05:03:00 PM [facility] [employer]: [employer] Name Value Range Interpretation Description Data Sup porting Code Source(s) Document(s ) Glucose 106 74-106 METER GLUCOSE [place] [Mass/volume] mg/dL Hospital in Capillary blood by Glucometer ID Date Data Source [id number] 06/13/2018 05:03:00 PM [facility] [employer]: [employer] [facility] Name Value Range Interpretation Description Data Sup porting Code Source(s) Document(s ) Glucose 106 74-106 METER GLUCOSE [place] [Mass/volume] mg/dL Hospital in Capillary blood by Glucometer Procedure Social History Code Duration Value Status Description Data Source(s ) Smoking 2019 Former Smoker completed [facility] Smoking 2019 Former Smoker completed Former Smoker eCW3 ( [facility] 12:00:00 AM [facility]) Former Smoker completed Former Smoker eCW3 ([facility]) Former Smoker completed Former Smoker eCW3 ([facility]) Smoking Unknown if ever completed Unknown if ever Ernesto Gutierrez smoked [facility] Smoking Unknown if ever completed Unknown if ever eCW2 ([facility]) Smoking Ex-smoker completed Ex-smoker (finding) [place] (finding) [facility] Smoking Ex-smoker completed Ex-smoker (finding) [place] (finding) [facility] Vital Signs ID Date Data Source UNK Name Value Range Interpretation Code Description Data Source(s) Diastolic blood 85 mm[Hg] 85 mm[Hg] eCW3 ([facility]) Systolic blood 121 mm[Hg] 121 mm[Hg] eCW3 ([facility]) Body temperature 98.7 [degF] 98.7 [degF] eCW3 ( [facility]) Body mass index 16.21 kg/m2 16.21 kg/m2 eCW3 ([facility] (BMI) [Ratio] [facility]) Body weight 102 [lb_av] 102 [lb_av] eCW3 ([facility]) Body height 66.5 [in_i] 66.5 [in_i] eCW3 ([facility]) Diastolic blood 65 mm[Hg] 65 mm[Hg] eCW3 ([facility]) Systolic blood 106 mm[Hg] 106 mm[Hg] eCW3 ([facility]) Body temperature 98.5 [degF] 98.5 [degF] eCW3 ( [facility]) Body height 66.5 [in_i] 66.5 [in_i] eCW3 ([facility]) Patient Treatment Plan of Care Planned Activity Planned Date Details Description Data Source (s) 28 ACTUAT tiotropium 0.0025 10/02/2019 eCW3 ([place] MG/ACTUAT Metered Dose 12:00:00 AM [facility]) Inhaler [Spiriva] 24 HR Nicotine 0.292 MG/HR 07/30/2019 e CW3 ([place] Transdermal Patch 12:00:00 AM [facility]) 120 ACTUAT Budesonide 0.16 07/24/2019 e CW3 ([place] MG/ACTUAT / formoterol 12:00:00 AM [facility]) fumarate 0.0045 MG/ACTUAT Metered Dose Inhaler [Symbicort] 120 ACTUAT Fluticasone 06/05/2019 eCW3 ([place] propionate 0.23 MG/ACTUAT / 12:00:00 AM [facility]) salmeterol 0.021 MG/ACTUAT Metered Dose Inhaler [Advair] Zolpidem tartrate 5 MG Oral 06/19/2018 [place] Tablet 12:00:00 AM [facility] Methylprednisolone (Medrol 06/19/2018 W rg [place] Dose-Tristan 4MG Tab*) 4 Mg 12:00:00 AM [facility] Tab.ds.pk Hydromorphone Hydrochloride 2 06/19/2018 [place] MG Oral Tablet [Dilaudid] 12:00:00 AM [facility] heparin sodium, porcine 5000 06/19/2018 [place] UNT/ML Injectable Solution 12:00:00 AM [facility] Acetaminophen 325 MG Oral 06/19/2018 Wh ite [place] Tablet [Mapap] 12:00:00 AM [facility] Zolpidem tartrate 5 MG Oral 06/19/2018 [place] Tablet 12:00:00 AM [facility] Methylprednisolone (Medrol 06/19/2018 W rg [place] Dose-Tristan 4MG Tab*) 4 Mg 12:00:00 AM [facility] H [facility]spital Tab.ds.pk Hydromorphone Hydrochloride 2 06/19/2018 [place] MG Oral Tablet [Dilaudid] 12:00:00 AM [facility] heparin sodium, porcine 5000 06/19/2018 [place] UNT/ML Injectable Solution 12:00:00 AM [facility] Acetaminophen 325 MG Oral 06/19/2018 Wh ite [place] Tablet [Mapap] 12:00:00 AM [facility] Ensure Enlive - eCW3 ([facility]) 200 ACTUAT Albuterol 0.09 eC W3 ([place] MG/ACTUAT Dry Powder Inhaler [facility]) [ProAir] Acetaminophen 325 MG / [place] Oxycodone Hydrochloride 5 MG Hospital Oral Tablet [Percocet] Naproxen 500 MG Oral Tablet [place] [[facility]] [facility] Salmeterol [place] Xinafoate/Fluticasone ([facility] 250/50 Diskus*) 250 Mcg-50 Mcg/Dose Blst.w.dev 120 ACTUAT Albuterol 0.1 Whi te [place] MG/ACTUAT / [facility] 0.02 MG/ACTUAT Metered Dose Inhaler [Combivent] gabapentin 300 MG Oral [place] Capsule [[facility]] [facility] Acetaminophen 325 MG / [place] Oxycodone Hydrochloride 5 MG Hospital Oral Tablet [Percocet] Naproxen 500 MG Oral Tablet [place] [[facility]] [facility] X[facility]/Fluticasone ([facility] 250/50 Diskus*) 250 Mcg-50 Mcg/Dose Blst.w.dev 120 ACTUAT Albuterol 0.1 Whi te [place] MG/ACTUAT / [facility]pr[facility]ropium [facility] 0.02 MG/ACTUAT Metered Dose Inhaler [Combivent] gabapentin 300 MG Oral [place] Capsule [[facility]] [facility]
[2020-02-02 10:11] LABS: BASO % 0.9 % (0-2.0); EOS % 2.7 % (0-4.5); HEMATOCRIT 39.3 % (35.4-49); LYMPH % 24.8 % (8-40); MCH 27.9 pg (25.7-33.7); MEAN CELL VOLUME 84.6 fl (80-96); MEAN PLT VOLUME 8.5 fl (7.5-11.1); NEUT % 63.6 % (42.8-82.8); PLATELET COUNT 296 K/MM3 (134-434); RBC 4.64 M/mm3 (4.00-5.60); RDW 16.6 % (11.9-15.9); WHITE BLOOD COUNT 7.2 K/mm3 (4.0-10.0)
[2020-02-02] MEDS ORDERED: morphine SULFATE 4 MG/ML VIAL IVPUSH ONE ×2 (10:16→15:08)
[2020-02-02] MEDS ORDERED: ACETAMINOPHEN 1000 MG/100 ML VIAL (NON FORMULARY) IVPB ONE (10:16)
[2020-02-02] MEDS ORDERED: ONDANSETRON 4 MG/2 ML VIAL IVPUSH PRN ×2 (10:18→15:51)
[2020-02-02 10:20] LABS: INR 1.09 (0.83-1.09); PROTHROMBIN TIME (PATIENT) 12.9 SEC (9.7-13.0)
[2020-02-02 10:23] LABS: ACTIVATED PTT 28.7 SECONDS (25.2-36.5)
[2020-02-02] MEDS ORDERED: morphine SULFATE 4 MG/ML VIAL ONE ×2 (10:32→15:43)
[2020-02-02] MEDS ORDERED: ACETAMINOPHEN INJECTION 100 ML IVPB ONE (10:32)
[2020-02-02 10:43] LABS: ALBUMIN 3.9 g/dl (3.4-5.0); ALK PHOS 56 U/L (45-117); ANION GAP 5 MMOL/L (8-16); BILIRUBIN,TOTAL 0.4 mg/dL (0.2-1); BLOOD UREA NITROGEN 13.4 mg/dL (7-18); CALCIUM 9.8 mg/dL (8.5-10.1); CHLORIDE 104 mmol/L (98-107); CO2 32 mmol/L (21-32); CREATININE 0.9 mg/dL (0.55-1.3); GLUCOSE,RANDOM 101 mg/dL (74-106); POTASSIUM 4.2 mmol/L (3.5-5.1); SGOT/AST 15 U/L (15-37); SGPT/ALT 13 U/L (13-61); SODIUM 140 mmol/L (136-145); TOT PROT 7.8 g/dl (6.4-8.2)
--- NOTE | 2020-02-02 11:47 | EKG ---
Test Reason : Blood Pressure : / mmHG Vent. Rate : 101 BPM Atrial Rate : 101 BPM P-R Int : 136 ms QRS Dur : 068 ms QT Int : 330 ms P-R-T Axes : 081 086 088 degrees QTc Int : 427 ms SINUS TACHYCARDIA POSSIBLE LEFT ATRIAL ENLARGEMENT BORDERLINE ECG WHEN COMPARED WITH ECG OF 20-JAN-2020 14:53, PREMATURE ATRIAL COMPLEXES ARE NO LONGER PRESENT Confirmed by JILL CHIU MD ([id number]) on 02/02/2020 11:47:14 AM Referred By: Confirmed By:JILL CHIU MD
--- NOTE | 2020-02-02 11:51 | PDOC ---
Documentation entered by Reji Alonso SCRIBE, acting as scribe for Indigo Stephens MD. Indigo Stephens MD: This documentation has been prepared by the Celetse casarez Xhesika, SCRIBE, under my direction and personally reviewed by me in its entirety. I confirm that the documentation accurately reflects all work, treatment, procedures, and medical decision making performed by me. Attending Attestation - Resident Resident Name: Reji Heard - ED Attending Attestation I have performed the following: I have examined & evaluated the patient, The case was reviewed & discussed with the resident, I agree w/resident's findings & plan, Exceptions are as noted - HPI HPI: 02/02/20 09:56 The patient is a 69y/o M with a pmh of COPD, s/p appendectomy, hepatitis C, recurrent SBO who presents to the ED BIBA for abdominal pain. Pt was seen here in the ED and admitted on 01/19-01/22 for similar symptoms and abdominal CT was consistent with SBO. Pt states his last BM was yesterday at 4PM. Pt reports he has had several episodes of nbnb emesis throughout the night. Pt states his symptoms are similar to his previous SBO. The patient denies chest pain, shortness of breath, headache and dizziness. Denies fever, chills, cough, nausea, diarrhea. Denies dysuria, frequency, urgency and hematuria. Allergies: NKDA PCP:Zohaib Fontana - Physicial Exam PE: 02/02/20 11:43 GENERAL: Awake, alert, and fully oriented, in no acute distress but appears uncomfortable EYES: PERRLA, EOMI, sclera anicteric, conjunctiva clear ENT: Oropharynx clear without exudates. Dry MM NECK: Normal ROM, supple, no lymphadenopathy, JVD, or masses LUNGS: Breath sounds equal, clear to auscultation bilaterally. No wheezes, and no crackles HEART: Regular rate and rhythm, normal S1 and S2, no murmurs, rubs or gallops ABDOMEN: Distended, tympanitic, diffusely tender, reduced bowel sounds. No guarding, no rebound. No masses EXTREMITIES: Normal range of motion, no edema. No clubbing or cyanosis. No c ords, erythema, or tenderness NEUROLOGICAL: Normal speech, cranial nerves intact, equal strength and sensation b/l SKIN: Warm, Dry, normal turgor, no rashes or lesions noted. - Medical Decision Making 02/02/20 11:49 69yo M with multiple previous SBOs, most recently medically managed a few weeks ago presents to the ED with abd pain, N/V. Not passing flatus Has hx of adhesions Plan: -labs -CTAP w PO contrast -antiemetics -reassess 02/02/20 14:[address] Baez +pneumoperitoneum and SBO Call to surgeon tree surgeon helper Dr. Snyder stat at 2:06PM, 2:21PM, and 2:55PM. Dr. Snyder paged overhead at 2:56PM. A voicemail was left on his cellphone at 3:08PM. Zosyn given Awaiting call back 02/02/20 15:[address] Snyder. He will get an OR ready for surgery Pt remians HDS Case discussed with Dr. Aranda, pt accepted for admission to hospitalist Case discussed in detail with admitting physician including history, physical exam and ancillary studies. Admitting physician has assumed care for the patient, will follow all pending diagnostics and will complete the evaluation and treatment. Discharge - Discharge Information Problems reviewed: Yes Clinical Impression/Diagnosis: Small bowel obstruction due to adhesions, Pneumoperitoneum, Abdominal pain, Nausea & vomiting Condition: Stable - Follow up/Referral Referrals: Zohaib Barrera MD [Primary Care Provider] - - Patient Discharge Instructions - Post Discharge Activity
[2020-02-02] MEDS ORDERED: PIPERACILLIN/TAZOB 4.5 GM 4.5 GM in DEXTROSE 5%-WATER - 100 ML IVPB ONE (14:15)
[2020-02-02] MEDS ORDERED: PIPERACILLIN/TAZOB 4.5 GM 4.5 GM/100 ML BAG IVPB ONE (14:23)
[2020-02-02] MEDS ORDERED: MIDAZOLAM HCL 2 MG/2 ML SINGLE DOSE VIAL ONE (15:51)
[2020-02-02] MEDS ORDERED: ROCURONIUM BROMIDE 50 MG/5 ML SYRINGE ONE (15:51)
[2020-02-02] MEDS ORDERED: PROPOFOL 20 ML ONE (15:51)
[2020-02-02] MEDS ORDERED: DEXAMETHASONE SOD PHOSPHATE 4 MG/1 ML VIAL ONE (15:51)
[2020-02-02] MEDS ORDERED: PROMETHAZINE HCL 25 MG/1 ML VIAL IVPUSH PRN (15:51)
[2020-02-02] MEDS ORDERED: oxyCODONE HCL 5 MG TABLET PO PRN (15:51)
[2020-02-02] MEDS ORDERED: fentaNYL CITRATE 250 MCG/5 ML VIAL ONE (15:51)
--- NOTE | 2020-02-02 16:36 | HP ---
CHIEF COMPLAINT: Nausea & vomiting since last night PCP: unknown HISTORY OF PRESENT ILLNESS: 69 yo Male with PMHx of COPD, Hep C, multiple abdominal surgeries and recurrent SBOs who presents with abdominal pain, nausea, and vomiting since last night. Pain started after the patient had dinner. Was d/c from here 3 weeks ago for SBO that resolved with NPO and NG tube. Patient currently experiencing bilious vomiting ER course was notable for: (1) CT AB/Pelvis (2) Surgery Consult Recent Travel: Denies PAST MEDICAL HISTORY: COPD Hep C multiple SBOs PAST SURGICAL HISTORY: - Ex-lap (x3) - perforated colon during colonoscopy in 2013 - lysis of adhesions in 2018 - appendectomy Social History: Smoking: quit a year ago, smoked 1 pack a day for 50 years Alcohol: quit 2 years ago Drugs: marijuana 1x a week on average Allergies No Known Allergies Allergy (Verified 02/02/20 09:54) HOME MEDICATIONS: Home Medications Medication Instructions Recorded Ipratropium/Albuterol Sulfate 4 gm IH BID 10/13/17 [Combivent Respimat 20-100 Mcg] Fluticasone/Salmeterol [Advair 1 each IH BID 06/15/19 250-50 Diskus] Gabapentin [Neurontin] 300 mg PO HS 06/15/19 traZODone HCL [Trazodone HCl] 50 mg PO HS PRN 06/15/19 Doxepin HCl 75 mg PO DAILY 06/30/19 Mirtazapine 30 mg PO DAILY 06/30/19 REVIEW OF SYSTEMS CONSTITUTIONAL: Absent: fever, chills, diaphoresis, generalized weakness, malaise, loss of appetite, weight change HEENT: Absent: rhinorrhea, nasal congestion, throat pain, throat swelling, difficulty swallowing, mouth swelling, ear pain, eye pain, visual changes CARDIOVASCULAR: Absent: chest pain, syncope, palpitations, irregular heart rate, lightheadedness, peripheral edema RESPIRATORY: Absent: cough, shortness of breath, dyspnea with exertion, orthopnea, wheezing, stridor, hemoptysis GASTROINTESTINAL: Absent: abdominal pain, abdominal distension, nausea, vomiting, diarrhea, const ipation, melena, hematochezia GENITOURINARY: Absent: dysuria, frequency, urgency, hesitancy, hematuria, flank pain, genital pain MUSCULOSKELETAL: Absent: myalgia, arthralgia, joint swelling, back pain, neck pain SKIN: Absent: rash, itching, pallor HEMATOLOGIC/IMMUNOLOGIC: Absent: easy bleeding, easy bruising, lymphadenopathy, frequent infections ENDOCRINE: Absent: unexplained weight gain, unexplained weight loss, heat intolerance, cold intolerance NEUROLOGIC: Absent: headache, focal weakness or paresthesias, dizziness, unsteady gait, seizure, mental status changes, bladder or bowel incontinence PSYCHIATRIC: Absent: anxiety, depression, suicidal or homicidal ideation, hallucinations. PHYSICAL EXAMINATION Vital Signs - 24 hr 02/02/20 02/02/20 09:54 14:27 Temperature 98.0 F 98.3 F Pulse Rate 103 H Pulse Rate [ 88 Radial] Respiratory 20 20 Rate Blood Pressure 135/114 H Blood Pressure 115/74 [Left Arm] O2 Sat by Pulse 96 97 Oximetry (%) GENERAL: Awake, alert, and fully oriented, in pain but controlled HEAD: Normal with no signs of trauma. EYES: PERRL, EOMI ENT: Moist mucous membranes. NECK: Normal range of motion LUNGS: BL mild wheezing HEART: RRR, s1, s2 ABDOMEN: rigid, tender, hyperactive bowel sounds MSK: Normal range of motion at all joints. No bony deformities or tenderness. No edema LE BL NEUROLOGICAL: Cranial nerves II-XII intact. PSYCHIATRIC: Cooperative. Good eye contact. SKIN: Warm, dry Laboratory Results - last 24 hr 02/02/20 02/02/20 02/02/20 09:57 10:00 10:00 WBC 7.2 RBC 4.64 Hgb 13.0 Hct 39.3 MCV 84.6 MCH 27.9 MCHC 33.0 RDW 16.6 H Plt Count 296 D MPV 8.5 Absolute Neuts (auto) 4.6 Neutrophils % 63.6 Lymphocytes % 24.8 D Monocytes % 8.0 Eosinophils % 2.7 Basophils % 0.9 Nucleated RBC % 0 PT with INR 12.90 INR 1.09 PTT (Actin FS) 28.7 Sodium 140 Potassium 4.2 Chloride 104 Carbon Dioxide 32 Anion Gap 5 L BUN 13.4 Creatinine 0.9 Est GFR (CKD-EPI)AfAm 99.24 Est GFR (CKD-EPI)NonAf 85.63 Random Glucose 101 Lactic Acid Calcium 9.8 Total Bilirubin 0.4 AST 15 ALT 13 Alkaline Phosphatase 56 Troponin I < 0.02 Total Protein 7.8 Albumin 3.9 Blood Type Antibody Screen 02/02/20 02/02/20 10:00 10:00 WBC RBC Hgb Hct MCV MCH MCHC RDW Plt Count MPV Absolute Neuts (auto) Neutrophils % Lymphocytes % Monocytes % Eosinophils % Basophils % Nucleated RBC % PT with INR INR PTT (Actin FS) Sodium Potassium Chloride Carbon Dioxide Anion Gap BUN Creatinine Est GFR (CKD-EPI)AfAm Est GFR (CKD-EPI)NonAf Random Glucose Lactic Acid 0.9 Calcium Total Bilirubin AST ALT Alkaline Phosphatase Troponin I Total Protein Albumin Blood Type A POSITIVE Antibody Screen Negative CT/Ab: Interval development of markedly dilated small bowel loops in the lower abdomen. No exact transition point is reliably identified, however there is apparent change in caliber of a dilated loop within the periumbilical region that is suspicious. Findings are compatible with small bowel obstruction. Air noted along the anterior aspect of the right hemiabdomen is highly concerning for free air. Prominent intra and extrahepatic biliary ducts are not significantly changed compared to January 20, 2020 study. Findings were discussed with Dr. Stephens of the ER on February 02, 2020 at 2:08 PM by phone. ASSESSMENT/PLAN: 69 yo Male with PMHx of COPD, Hep C, multiple abdominal surgeries and recurrent SBOs who presents with abdominal pain, nausea, and vomiting since last night. Being admitted to hospital for emergency laparotomy with Dr. Snyder. Patient will be admitted to ICU after surgery for further management. Neuro - awake, alert, oriented - pain controlled Pulm - COPD - continue home breathing treatments - watch for atelectasis s/p surgery Cardio - no issues - cardiac monitoring in ICU s/p surgery GI - hx of SBOs - free air in abdomen >> emergency ex lap Dr. Snyder - post op recs pending Renal - no current issues - watch I&Os ID - received zosyn in ED DVT ppx - SCDs GI ppx - IV protonix FEN - NPO - check and repleat electrolytes PRN - IVF Dispo: Admit to ICU s/p Ex lap Family Medical History Family History: Denies Visit type - Medication Review Med list reviewed for High Risk Meds patients 65 and older: Yes - Emergency Visit Emergency Visit: Yes ED Registration Date: 02/02/20 Care time: The patient presented to the Emergency Department on the above date and was hospitalized for further evaluation of their emergent condition. - New Patient This patient is new to me today: Yes Date on this admission: 02/02/20 - Critical Care Critical Care patient: Yes Total Critical Care Time (in minutes): 35 Critical Care Statement: The care of this patient involved high complexity decision making to prevent further life threatening deterioration of the patient's condition and/or to evaluate & treat vital organ system(s) failure or risk of failure. ATTENDING PHYSICIAN STATEMENT I saw and evaluated the patient. I reviewed the resident's note and discussed the case with the resident. I agree with the resident's findings and plan as documented. SUBJECTIVE: OBJECTIVE: ASSESSMENT AND PLAN:
[2020-02-02] MEDS ORDERED: ETOMIDATE 20 MG/10 ML AMPUL IVPUSH ONE (16:46)
--- OUTSIDE RECORDS SUMMARY | 2020-02-02 17:39 | XMS ---
:1950 [facility] Providers Name Role Phone Triplett, [...] is protected by Article 27-F of the [facility] Public Health law. If you continue you may haveaccess to information: Regarding HIV / AIDS; Provided by facilities licensed or operated by the [facility] Office of Mental Health; or Provided by the [facility] Office for People With Developmental Disabilities. If such information is present, then the following [facility] mandated warning applies: This information has [...] law may result in a fine or nursing home sentence or both. A general authorization for the release of medical or other information is NOT sufficient authorization for further disclosure. Allergies and Adverse Reactions Type Description Substance Reaction Status Data Source(s ) Drug allergy No Known No Known NO KNOWN Rona Sewell Allergies Allergies [facility] No Known No Known No Known eCW3 ([place] [facility] Allergies Allergies [facility]) No Known No Known No Known eCW3 ([place] [facility]erg[facility] Allergies Allergies [facility]) No Information No Information No Information eC W2 ([facility]) Encounters Encounter Providers Location Date Indications Data Source(s ) Outpatient [facility] 12/13/2018 eCW3 ([facility] 12:[facility]:00 [facility]) 12/13/2018 12:00:00 AM EDT Outpatient [facility] 09/16/2018 eCW3 ([facility] 12:00:00 [facility]) 09/16/2018 12:00:00 AM EDT Inpatient Attender: 06/13/2018 CERVICAL Rona Triplett 10:30:00 AM MYELOPATHY [facility] MDAdmitter: DR BA Triplett MD 06/19/2018 04:02:00 PM EST CERVICAL MYELOPATHY [facility] 05/30/2018 12:00:00 eCW2 ([facility] AM EST Health Care ) [facility] 04/19/2018 12:00:00 eCW2 ([facility] AM EST Health Care ) [facility] 04/01/2018 12:00:00 eCW2 ([facility] AM EST Health Care ) [facility] 03/15/2018 12:00:00 eCW2 ([facility] AM EST Health Care ) [facility] 03/14/2018 12:00:00 eCW2 ([facility] AM EST Health Care ) [facility] 02/22/2018 12:00:00 eCW2 ([facility] AM EDT Health Care ) [facility] 02/19/2018 12:00:00 eCW2 ([facility] AM EDT Health Care ) [facility] 02/12/2018 12:00:00 eCW2 ([facility] AM EDT Health Care ) [facility] 01/24/2018 12:00:00 eCW2 ([facility] AM EDT Health Care ) [facility] 01/24/2018 12:00:00 eCW2 ([facility] AM EDT Health Care ) [facility] 01/24/2018 12:00:00 eCW2 ([facility] AM EDT Health Care ) [facility] 01/16/2018 12:00:00 eCW2 ([facility] AM EDT Health Care ) [facility] 01/16/2018 12:00:00 eCW2 ([facility] AM EDT Health Care ) [facility] 11/22/2017 12:00:00 [email or web address] 11/15/2017 12:00:00 [facility]CW[email or web address] 10/11/2017 12:00:00 eCW2 ([facility] AM EDT Health Care ) [facility] 09/20/2017 12:00:00 eCW2 ([facility] AM EDT Health Care ) [facility] 06/20/2017 12:00:00 eCW2 ([facility] AM EST Health Care ) [facility] 06/05/2017 12:00:00 eCW2 ([facility] AM EST Health Care ) [facility] 04/05/2017 12:00:00 eCW2 ([facility] AM EST Health Care ) [facility] 03/27/2017 12:00:00 eCW2 ([facility] AM EST Health Care ) [facility] 01/26/2017 12:00:00 eCW2 ([facility] AM EDT Health Care ) [facility] 01/05/2017 12:00:00 eCW2 ([facility] AM EDT Health Care ) [facility] 01/05/2017 12:00:00 eCW2 ([facility] AM EDT Health Care ) [facility] 01/02/2017 12:00:00 eCW2 ([facility] AM EDT Health Care ) [facility] 12/22/2016 12:00:00 eCW2 ([facility] AM EDT Health Care ) [facility] 12/12/2016 12:00: 00 eCW2 ([facility] AM EDT Health Care ) [facility] 12/08/2016 12:00:00 eCW2 ([facility] AM EDT Health Care ) [facility] 12/01/2016 12:00:00 eCW2 ([facility] AM EDT Health Care ) [facility] 11/22/2016 12:00:00 eCW2 ([facility] AM EDT Health Care ) [facility] 11/16/2016 12:00:00 eCW2 ([facility] AM EDT Health Care ) [facility] 11/14/2016 12:00:00 eCW2 ([facility] AM EDT Health Care ) [facility] 11/14/2016 12:00:00 eCW2 ([facility] AM EDT Health Care ) [facility] 11/14/2016 12:00:00 eCW2 ([facility] AM EDT Health Care ) [facility] 11/10/2016 12:00:00 eCW2 ([facility] AM EDT Health Care ) [facility] 10/05/2016 12:00:00 eCW2 ([facility] AM EDT Health Care ) [facility] 10/05/2016 12:00:00 eCW2 ([facility] AM EDT Health Care ) [facility] 09/29/2016 12:00:00 eCW2 ([facility] AM EDT Health Care ) [facility] 09/28/2016 12:00:00 eCW2 [email or web address] ) [facility] 09/21/2016 12:00:00 eCW2 [email or web address] ) [facility] 09/21/2016 12:00:00 eCW2 ([facility] AM EDT Health Care ) [facility] 07/26/2016 12:00:00 eCW2 ([facility] AM EDT Health Care ) [facility] 07/03/2016 12:00:00 eCW2 ([facility] AM EST Health Care ) [facility] 06/28/2016 12:00:00 eCW2 ([facility] AM EST Health Care ) [facility] 03/01/2016 12:00:00 eCW2 ([facility] AM EDT Health Care ) [facility] 02/21/2016 12:00:00 eCW2 ([facility] AM EDT Health Care ) [facility] 12/29/2015 12:00:00 eCW2 ([facility] AM EDT Health Care ) [facility] 08/31/2015 12:00:00 eCW2 ([facility] AM EDT Health Care ) [facility] 08/10/2015 12:00:00 eCW2 ([facility] AM EDT Health Care ) [facility] 07/29/2015 12:00:00 eCW2 ([facility] AM EDT Health Care ) [facility] 07/16/2015 12:00:00 eCW2 ([facility] AM EST Health Care ) [facility] 07/09/2015 12:00:00 eCW2 ([facility] AM EST Health Care ) [facility] 07/08/2015 12:00:00 eCW2 ([facility] AM EST Health Care ) [facility] 06/09/2015 12:00:00 eCW2 ([facility] AM EST Health Care ) [facility] 03/08/2015 12:00:00 eCW2 ([facility] AM EST Health Care ) [facility] 03/05/2015 12:00: 00 eCW2 ([facility] AM EDT Health Care ) [facility] 02/19/2015 12:00:00 eCW2 ([facility] AM EDT Health Care ) [facility] 02/12/2015 12:00:00 eCW2 ([facility] AM EDT Health Care ) [facility] 11/27/2014 12:00:00 eCW2 ([facility] AM EDT Health Care ) [facility] 10/02/2014 12:00:00 eCW2 ([facility] AM EDT Health Care ) [facility] 09/24/2014 12:00:00 eCW2 ([facility] AM EDT Health Care ) [facility] 09/10/2014 12:00:00 eCW2 ([facility] AM EDT Health Care ) [facility] 08/27/2014 12:00:00 eCW2 ([facility] AM EDT Health Care ) [facility] 08/24/2014 12:00:00 eCW2 ([facility] AM EDT Health Care ) [facility] 08/21/2014 12:00:00 eCW2 ([facility] AM EDT Health Care ) [facility] 08/19/2014 12:00:00 eCW2 ([facility] AM EDT Health Care ) [facility] 07/30/2014 12:00:00 eCW2 ([facility] AM EDT Health Care ) [facility] 07/24/2014 12:00:00 eCW2 ([facility] AM EDT Health Care ) [facility] 07/23/2014 12:00:00 eCW2 ([facility] AM EDT Health Care ) [facility] 07/16/2014 12:00:00 eCW2 ([facility] AM EDT Health Care ) [facility] 03/25/2014 12:00:00 eCW2 ([facility] AM EST Health Care ) [facility] 02/24/2014 12:00:00 eCW2 ([facility] AM EDT Health Care ) [facility] 02/04/2014 12:00:00 eCW2 ([facility] AM EDT Health Care ) [facility] 01/16/2014 12:00:00 eCW2 ([facility] AM EDT Health Care ) [facility] 12/09/2013 12:00:00 eCW2 ([facility] AM EDT Health Care ) [facility] 10/28/2013 12:00:00 eCW2 ([facility] AM EDT Health Care ) [facility] 10/28/2013 12:00:00 eCW2 ([facility] AM EDT Health Care ) [facility] 09/05/2013 12:00:00 eCW2 ([facility] AM EDT Health Care ) [facility] 08/21/2013 12:00:00 eCW2 ([facility] AM EDT Health Care ) [facility] 08/05/2013 12:00:00 eCW2 ([facility] AM EDT Health Care ) [facility] 07/11/2013 12:00:00 eCW2 ([facility] AM EST Health Care ) [facility] 06/17/2013 12:00:00 eCW2 ([facility] AM EST Health Care ) [facility] 06/03/2013 12:00:00 eCW2 ([facility] AM EST Health Care ) [facility] 05/29/2013 12:00:00 eCW2 ([facility] AM EST Health Care ) [facility] 04/10/2013 12:00:00 eCW2 ([facility] AM EST Health Care ) [facility] 03/13/2013 12:00:00 eCW2 ([facility] AM EST Health Care ) [facility] 12/17/2012 12:00:00 eCW2 ([facility] AM EDT Health Care ) [facility] 12/17/2012 12:00:00 eCW2 ([facility] AM EDT Health Care ) [facility] 12/17/2012 12:00:00 eCW2 ([facility] AM EDT Health Care ) [facility] 12/02/2012 12:00:00 eCW2 ([facility] ) [facility] 12:00:00 eCW2 ([facility] AM EDT Health Care ) [facility] 09/06/2012 12:00:00 eCW2 ([facility] AM EDT Health Care ) [facility] 07/10/2012 12:00:00 eCW2 ([facility] AM EST Health Care ) [facility] 07/05/2012 12:00:00 eCW2 ([facility] AM EST Health Care ) [facility] 06/20/2012 12:00:00 eCW2 ([facility] AM EST Health Care ) [facility] 06/07/2012 12:00:00 eCW2 ([facility] AM EST Health Care ) [facility] 06/05/2012 12:00:00 eCW2 ([facility] AM EST Health Care ) [facility] 05/09/2012 12:00:00 eCW2 ([facility] AM EST Health Care ) [facility] 04/02/2012 12:00:00 eCW2 ([facility] AM EST Health Care ) [facility] 01/15/2012 12:00:00 eCW2 ([facility] AM EDT Health Care ) [facility] 01/04/2012 12:00:00 eCW2 ([facility] AM EDT Health Care ) [facility] 01/01/2012 12:00:00 eCW2 ([facility] AM EDT Health Care ) [facility] 12/28/2011 12:00:00 eCW2 ([facility] AM EDT Health Care ) [facility] 12/27/2011 12:00:00 eCW2 ([facility] AM EDT Health Care ) [facility] 12/14/2011 12:00:00 [facility]CW2 [email or web address] 12/14/2011 12:00:00 eCW2 ([facility] AM EDT Health Care ) [facility] 12/12/2011 12:00:00 eCW2 ([facility] AM EDT Health Care ) [facility] 12/06/2011 12:00:00 eCW2 ([facility] AM EDT Health Care ) [facility] 12/06/2011 12:00:00 eCW2 ([facility] AM EDT Health Care ) [facility] 11/13/2011 12:00:00 eCW2 ([facility] AM EDT Health Care ) [facility] 10/16/2011 12:00:00 eCW2 ([facility] AM EDT Health Care ) [facility] 09/20/2011 12:00:00 eCW2 ([facility] AM EDT Health Care ) [facility] 09/15/2011 12:00:00 eCW2 ([facility] AM EDT Health Care ) [facility] 06/02/2011 12:00:00 eCW2 ([facility] AM EST Health Care ) [facility] 05/03/2011 12:00:00 eCW2 ([facility] AM EST Health Care ) [facility] 04/26/2011 12:00:00 eCW2 ([facility] AM EST Health Care ) [facility] 03/24/2011 12:00:00 eCW2 ([facility] AM EST Health Care ) [facility] 12/30/2010 12:00:00 eCW2 ([facility] AM EDT Health Care ) [facility] 12/28/2010 12:00:00 eCW2 ([facility] AM EDT Health Care ) [facility] 12/28/2010 12:00:00 eCW2 ([facility] AM EDT Health Care ) [facility] 12/22/2010 12:00:00 eCW2 ([facility] AM EDT Health Care ) [facility] 12/21/2010 12:00:00 eCW2 ([facility] AM EDT Health Care ) [facility] 11/29/2010 12:00:00 eCW2 ([facility] AM EDT Health Care ) [facility] 11/22/2010 12:00:00 eCW2 ([facility] AM EDT Health Care ) [facility] 11/18/2010 12:00:00 eCW2 ([facility] AM EDT Health Care ) [facility] 11/18/2010 12:00:00 eCW2 ([facility] AM EDT Health Care ) [facility] 11/17/2010 12:00:00 eCW2 ([facility] AM EDT Health Care ) [facility] 07/26/2010 12:00:00 eCW2 ([facility] AM EDT Health Care ) [facility] 07/15/2010 12:00:00 eCW2 ([facility] AM EST Health Care ) [facility] 04/25/2010 12:00:00 eCW2 ([facility] ) [facility] 01/25/2010 12:00:00 eCW2 ([facility] ) [facility] 01/18/2010 12:00:00 eCW2 ([facility] ) [facility] 12/29/2009 12:00:00 eCW2 ([facility] ) [facility] 07/19/2009 12:00:00 eCW2 ([facility] ) [facility] 05/21/2009 12:00:00 eCW2 ([facility] ) [facility] 03/05/2009 12:00:00 eCW2 ([facility] Care ) [facility] 01/26/2009 12:00:00 eCW2 ([facility] ) Immunizations Vaccine Date Status Description Data Source(s) No Known Immunizations completed eCW2 ([facility]) Medications Medication Brand Start Product Dose Route Administrative Pharmacy [facility] Indications Reaction Description Data Name Date Form [...] B efore White isolone 2019 ed Breakfast Ider (Medrol 12:00: Hospital Dose-Tristan 00 AM 4MG Tab*) 4 EST Mg Tab.ds.pk Hydromorpho Hydrom 06/19/ TABLET complet Ever y 4 White ne orphon 2019 ed Hours as Ider Hydrochlori e Hcl 12:00: needed for Hospital [...] White ne orphon 2019 ed Hours as Ider Hydrochlori e Hcl 12:00: needed for Hospital [...] B efore White isolone 2018 ed Breakfast Ider (Medrol 12:00: Hospital Dose-Tristan 00 AM 4MG [...] Ipratropium rol 00 AM MG/3ML [facility]alt [facility] [place] 0.5-2. EDT Care) 0.167 MG/ML 5 (3) Inhalant MG/3ML Solution Ipratropium -Albuterol 0.5-2.5 (3) MG/3ML Albuterol Ipratr 01/24/ 3.0 suspend Ipratrop ium- eCW3 0.833 MG/ML opium- 2018 {ml} ed Albuterol ( [place] / [place] 12:00: 0.5-2.5 (3) Rive r Ipratropium rol 00 AM MG/3ML Healt h [place] 0.5-2. EDT Care) 0.167 MG/ML 5 (3) [...] Ipratropium rol 00 AM MG/3ML Healt h [place] 0.5-2. EDT Care) 0.167 MG/ML 5 (3) [...] Ipratropium rol 00 AM MG/3ML Healt [facility] [place] 0.5-2. EDT Care) 0.167 MG/ML 5 (3) [...] Ipratropium rol 00 AM MG/3ML Healt h [place] 0.5-2. EDT Care) 0.167 MG/ML 5 (3) [...] l with 2017 {tabl ed Codeine #3 ([place] Codeine Codein 12:00: et_as 300-30 MG Ri bailee Phosphate e #3 00 AM _need Health 30 MG Oral 300-30 EDT ed} Care) Tablet MG [Tylenol with Codeine] Tylenol with Codeine #3 300-30 MG Albuterol Ipratr 12/01/ active Ipratropi um- eCW3 0.833 MG/ML opium- 2016 Albuterol ( [place] / [place] 12:00: 0.5-2.5 (3) Rive r Ipratropium rol 00 AM MG/3ML Healt h [place] 0.5-2. EDT Care) 0.167 MG/ML 5 (3) Inhalant MG/3ML Solution Ipratropium -Albuterol 0.5-2.5 (3) MG/3ML Acetaminoph Tyleno .0 suspend Tyleno l with eCW3 en 300 MG / l with 2017 {tabl ed Codeine #3 ([place] Codeine Codein 12:00: et_as 300-30 MG Ri bailee Phosphate e #3 00 AM _need Health 30 MG Oral 300-30 EDT ed} Care) Tablet MG [Tylenol with Codeine] Tylenol with Codeine #3 300-30 MG Albuterol Ipratr 12/01/ active Ipratropi um- eCW3 0.833 MG/ML opium- 2016 Albuterol ( [place] / [place] 12:00: 0.5-2.5 (3) Rive r Ipratropium rol 00 AM MG/3ML Healt h [place] 0.5-2. EDT Care) 0.167 MG/ML 5 (3) [...] Ipratropium rol 00 AM MG/3ML Healt h [place] 0.5-2. EDT Care) 0.167 MG/ML 5 (3) [...] Ipratropium rol 00 AM MG/3ML Healt [facility] [place] 0.5-2. EDT Care) 0.167 MG/ML 5 (3) Inhalant MG/3ML Solution Ipratropium -Albuterol 0.5-2.5 (3) MG/3ML Albuterol Ipratr 11/16/ suspend Ipratrop ium- eCW3 0.833 MG/ML opium- 2017 ed Albuterol ( [place] / [place] 12:00: 0.5-2.5 (3) Rive r Ipratropium rol 00 AM MG/3ML Healt h [place] 0.5-2. EDT Care) 0.167 MG/ML 5 (3) [...] Ipratropium rol 00 AM mg/3ml Healt [facility] [place] 0.5-2. EST Care) 0.167 MG/ML 5 (3) Inhalant mg/3ml Solution Ipratropium -Albuterol 0.5-2.5 (3) mg/3ml 120 ACTUAT COMBIV 2.0 suspend COMBIVE NT eCW3 Albuterol ENT 2016 {puff ed RESPIMAT ([place] 0.1 RESPIM 12:00: } 20-100 [place] MG/ACTUAT / AT 00 AM mcg/act Heal th Ipratropium 20-100 EST Care) [place] mcg/ac 0.02 t MG/ACTUAT Metered Dose Inhaler [Combivent] COMBIVENT RESPIMAT 20-100 mcg/act 120 ACTUAT COMBIV 2.0 suspend COMBIVE NT eCW3 Albuterol ENT 2017 {puff ed RESPIMAT ([place] 0.1 RESPIM 12:00: } 20-100 [place] MG/ACTUAT / AT 00 AM mcg/act Heal th Ipratropium 20-100 EST Care) [place] mcg/ac 0.02 t MG/ACTUAT Metered Dose Inhaler [Combivent] COMBIVENT RESPIMAT 20-100 mcg/act Albuterol Ipratr 07/03/ suspend Ipratrop ium- eCW3 0.833 MG/ML opium- 2017 ed Albuterol ( [place] / [place] 12:00: 0.5-2.5 (3) Rive r Ipratropium rol 00 AM mg/3ml Healt h [place] 0.5-2. EST Care) 0.167 MG/ML 5 (3) [...] Dextrometho Promet .0 suspend Promet hazine eCW3 [facility] 3 2015 {ml_a ed -DM 6.25-15 (H udson MG/ML / -DM 12:00: s_nee MG/5ML [place] Promethazin 6.25-1 00 AM ded} Healt h e 5 EDT Care) Hydrochlori MG/5ML de 1.25 MG/ML Oral Solution Promethazin e-DM 6.25-15 MG/5ML Dextrometho Promet .0 suspend Promet hazine eCW3 [facility] 3 2015 {ml_a ed -DM 6.25-15 (H [...] ed s ([place] 12:00: [place] 00 AM [facility] EDT Care) Naproxen Naprox TABLET 500 complet Twice A D ay [place] 500 MG Oral en mg ed Ider Tablet ([facility] [Naprosyn] syn Naproxen Tablet (Naprosyn *) [...] 300 MG Oral ntin mg ed Daily Ider Capsule (Neuro [facility] [Neurontin] ntin Gabapentin Capsul (Neurontin e*) Capsule*) 300 Mg 300 Mg Cap Cap Ensure Ensure active Ensure eCW3 Enlive - Enlive Enlive - ([facility]) Unknown complet eCW2 Medications ed ([facility]) Albuterol Ipratr 3.0 active Ipratropium - eCW3 0.833 MG/ML opium- {ml} Albuterol ( [place] / [place] 0.5-2.5 (3) [place] Ipratropium rol MG/3ML Health [place] 0.5-2. Care) 0.167 MG/ML 5 (3) Inhalant [...] 20 ug complet [place] Albuterol opium/ ed Ider 0.1 [facility] MG/ACTUAT / rol Ipratropium Sulfat [place] e 0.02 (Combi MG/ACTUAT vent Metered Respim Dose at Inhaler Inhal [Combivent] [place]) Ipratropium 20 /Albuterol Mcg-10 Sulfate 0 (Combivent Mcg/Ac Respimat tuatio Inhal n [place]) 20 Aer.w. Mcg-100 adap Mcg/Actuati on Aer.w.adap [...] complet Twice A Day [place] Xinafoate/F ed Ider [facility] (Advair 250/50 Diskus*) 250 Mcg-50 Mcg/Dose Blst.w.dev 60 ACTUAT Advair 1.0 suspend Advair eCW 3 Fluticasone Diskus {puff ed Diskus (Hu d[place] propionate 250-50 } 250-50 [place] 0.25 MCG/DO MCG/DOSE Health MG/ACTUAT / SE Care) salmeterol 0.05 MG/ACTUAT Dry Powder Inhaler [Advair] Advair Diskus 250-50 MCG/DOSE Naproxen Naprox TABLET 500 complet Twice A D ay [place] 500 MG Oral en mg ed Ider Tablet ([facility] [Naprosyn] syn Naproxen Tablet (Naprosyn *) 500 Tablet*) Mg 500 Mg Tablet Tablet, 500 , 500 Mg Oral Mg Oral 120 ACTUAT Ipratr AEROSOL 20 ug complet [place] Albuterol opium/ ed Ider 0.1 [facility] MG/ACTUAT / rol Ipratropium Sulfat [place] e 0.02 (Combi MG/ACTUAT vent Metered Respim Dose at Inhaler Inhal [Combivent] [place]) Ipratropium 20 /Albuterol Mcg-10 Sulfate 0 (Combivent Mcg/Ac Respimat tuatio Inhal n [place]) 20 Aer.w. Mcg-100 adap Mcg/Actuati on Aer.w.adap Albuterol Ipratr 3.0 active Ipratropium - eCW3 0.833 MG/ML opium- {ml} Albuterol ( [place] / [place] 0.5-2.5 (3) [place] Ipratropium rol MG/3ML Health [place] 0.5-2. Care) 0.167 MG/ML 5 (3) Inhalant MG/3ML Solution Ipratropium -Albuterol 0.5-2.5 (3) MG/3ML Salmeterol 1 complet Twice A Day [place] Xinafoate/F ed [facility] (Advair 250/50 Diskus*) 250 Mcg-50 [...] 300 MG Oral ntin mg ed Daily Ider Capsule (Neuro [facility] [Neurontin] ntin Gabapentin Capsul (Neurontin [...] Ensure eCW3 Enlive - Enlive Enlive - ([facility]) Acetaminoph Oxycod TABLET 1 complet Every 4 [...] name Policy type Policy ID Covered Covered democrat's Policy P jessica / Coverage democrat ID relationship to [place] [facility] ormation type victoria MEDICAID [id number] SP [id number] SUSIE [id number] SP [id number] 100 MEDICARE ADV PLAN SIENA MEDICARE [id number] SP [id number] MEDICAID OF [id number] 1 [id number] [place] CARE [id number] 1 [id number] [place] S[place] [id number] 1 [id number] MEDICARE ADVANTAGE MEDICAID [id number] PT [id number] SUSIE [id number] PT [id number] 100 MEDICARE ADVANTAGE BETTER [id number] PT [id number] 100 HEALTH/FIDELI S MEDICARE [id number] PT [id number] A Problems, Conditions, and Diagnoses Code Display Name Description Problem Type Effective Data Sour ce(s) Dates 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.9 Nutritional Nutritional Problem 04/21/2019 eCW3 ([place] deficiency deficiency 12:00:00 AM [facility] EST Care) M54.40 Lumbago with Lumbago with Problem 04/10/2019 eCW3 ([place] sciatica, sciatica, 12:00:00 AM [facility] unspecified side unspecified side EST Ca re) R63.0 Poor appetite Poor appetite Problem 04/10/2019 eCW3 ([facility] [place] 12:00:00 AM [facility] EST Care) G89.29 Other chronic pain Other chronic pain Problem 9 eCW3 ([place] 12:00:00 AM [facility] EST Care) H62.40 Otitis externa in Otitis externa in Problem 04/10/2019 eCW3 ([place] other diseases other diseases 12:00:00 AM [facility] classified classified EST Care) elsewhere, elsewhere, unspecified ear unspecified ear M54.32 Sciatica of left Sciatica of left Problem 12/13/2018 eC W3 ([place] side side 12:00:00 AM [facility] EDT Care) M54.31 Sciatica, right [...] COPD exacerbation COPD exacerbation Problem 10/11/2017 eCW3 ([place] 12:00:00 AM [facility] EDT Care) Z87.891 [...] Problem 06/20/2017 eCW2 ( [place] 12:00:00 AM [facility] EST Care) J44.9 COPD - Chronic COPD (chronic Problem 04/05/2017 eCW3 ([place] obstructive obstructive 12:00:00 AM [facility] h pulmonary disease pulmonary disease) EST Care) J44.9 COPD - Chronic COPD (chronic Problem 04/05/2017 eCW2 ([place] obstructive obstructive 12:00:00 AM [facility] pulmonary disease) EST Care) 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 Problem 12/01/2016 eCW3 ([place] disc disorder 12:00:00 AM [facility] EDT Care) 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 Problem 12/01/2016 eCW2 ([place] disc disorder 12:00:00 AM [facility] EDT Care) K90.9 Malabsorption Malabsorption Problem 11/14/2016 eCW3 ([facility] 12:00:00 AM [facility] EDT Care) K90.9 Malabsorption Malabsorption Problem 11/14/2016 eCW2 ([facility] 12:00:00 AM [facility] EDT Care) Z72.0 Tobacco abuse Tobacco abuse Problem 03/01/2016 eCW3 ([facility] 12:00:00 AM [facility] EDT Care) Z78.9 Patient has Patient has Problem 03/01/2016 eCW3 ([place] healthcare proxy healthcare proxy 12:00:00 AM [facility] EDT Care) H91.91 Hearing loss, Hearing loss, Problem 03/01/2016 eCW3 ([place] right right 12:00:00 AM [facility] EDT Care) H10.13 Allergic Allergic Problem 03/01/2016 eCW3 ([place] conjunctivitis, conjunctivitis, 12:00:00 AM [facility][note 2] Health bilateral bilateral EDT Care) Z78.9 Patient has Patient has Problem 03/01/2016 eCW2 ([place] healthcare proxy healthcare proxy 12:00:00 AM [facility] EDT Care) H10.13 Allergic Allergic Problem 03/01/2016 eCW2 ([place] conjunctivitis, conjunctivitis, 12:00:00 AM [facility][note 2] Health bilateral bilateral EDT Care) H91.91 Hearing loss, Hearing loss, Problem 03/01/2016 eCW2 ([place] right right 12:00:00 AM [facility] EDT Care) Z72.0 Tobacco abuse [...] EST Care) R26.9 Unspecified R26.9 Diagnosis 06/14/2018 [place] abnormalities of 10:58:00 AM Hospita l gait and mobility EST Z86.19 Personal history Z86.19 Diagnosis 06/14/2018 [place] of other 10:58:00 AM Hospital infectious and EST parasitic diseases F17.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.200 Diagnosis 06/14/2018 [place] dependence, 10:58:00 AM Hospital unspecified, EST uncomplicated J44.9 Chronic J44.9 Diagnosis 06/14/2018 [place] obstructive 10:58:00 AM Hospital pulmonary disease, EST unspecified M25.78 Osteophyte, M25.78 Diagnosis 06/14/2018 [place] vertebrae 10:58:00 AM Hospital EST M48.02 Spinal stenosis, M48.02 Diagnosis 06/14/2018 [place] cervical region 10:58:00 AM Hospital EST M50.01 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, high EST cervical region Surgeries/Procedures Procedure Description Date Indications Data Source(s) Injection, ketorolac 12/13/2018 eCW3 ([facility] tromethamine, per 15 12:00:00 AM Health Care) mg EDT Oral medication 09/16/2018 eCW3 ([place] administration, 12:00:00 AM Health Care) direct observation EDT X-ray of cervical X-ray of cervical 06/15/2018 [place] spine, flexion and spine, flexion and 12:00:00 AM Hos pital extension views only extension views only EST X-ray of cervical X-ray of cervical 06/15/2018 [place] spine, flexion and spine, flexion and 12:00:00 AM Hos pital extension views only extension views only EST X-ray of cervical X-ray of cervical 06/13/2018 [place] spine, flexion and spine, flexion and 12:00:00 AM Hos pital extension views only extension views only EST Fluoroscopy with Fluoroscopy with 06/13/2018 Rona schumacher C-arm for 60 minutes C-arm for 60 minutes 12:00:00 AM Hospital EST Fusion, spine, Fusion, spine, 06/13/2018 [place] cervical, anterior cervical, anterior 12:00:00 AM Hos pital approach approach EST X-ray of cervical X-ray of cervical 06/13/2018 [place] spine, flexion and spine, flexion and 12:00:00 AM Hos pital extension views only extension views only EST Fluoroscopy with Fluoroscopy with 06/13/2018 Rona schumacher C-arm for 60 minutes C-arm for 60 minutes 12:00:00 AM Hospital EST Fusion, spine, Fusion, spine, 06/13/2018 [place] cervical, anterior cervical, anterior 12:00:00 AM Hos pital approach approach EST No Known procedures No Known procedures e [facility] ([facility]) Results ID Date Data Source [id number] 01/21/2020 02:04:00 AM EDT [facility] Name Value Range Interpretation Description Data Sup porting Code Source(s) Document(s ) SARS [facility] coronavirus 2 RNA This lab was ordered by [facility] and reported by [facility]. ID Date Data Source [id number] 12/30/2019 04:30:00 AM EDT [facility] Name Value Range Interpretation Description Data Sup porting Code Source(s) Document(s ) SARS [facility] coronavirus 2 RNA This lab was ordered by [facility] and reported by [facility]. ID Date Data Source [id number] 06/16/2018 05:53:00 AM [facility] Value Range Interpretation Description Data Sup porting Code Source(s) Document(s ) Calcium 8.7 mg/dL 8.3-10.6 CALCIUM [place] [Mass/volum Hospital e] in Serum or Plasma ID Date Data Source [id number] 06/16/2018 05:53:00 AM EST [facility] Name Value Range Interpretation Description Data Sup porting Code Source(s) Document(s ) Urea 14.1 6.0-20.0 BUN/CREATININE [place] nitrogen/C RATIO Hospital reatinine [Mass Ratio] in Serum or Plasma ID Date Data Source [id number] 06/16/2018 05:53:00 AM EST [facility] Name Value Range Interpretation Description Data Sup porting Code Source(s) Document(s ) Creatinine 0.8 0.9-1.3 Below low normal CREATININE [place] [Mass/volume] mg/dL Hospital in Serum or Plasma ID Date Data Source [id number] 06/16/2018 05:53:00 AM EST [facility] Name Value Range Interpretation Description Data Sup porting Code Source(s) Document(s ) Urea 12 mg/dL 6-20 BLOOD UREA [place] nitrogen NITROGEN Hospital [Mass/volume ] in Serum or Plasma ID Date Data Source [id number] 06/16/2018 05:53:00 AM [facility] Value Range Interpretation Code Description Data Vandana rce(s) Supporting Document(s ) Anion gap in 12 6-18 ANION GAP [place] Serum or [facility] Plasma ID Date Data Source [id number] 06/16/2018 05:53:00 AM [facility] Value Range Interpretation Description Data Sup porting Code Source(s) Document(s ) Carbon 30 mmol/L 23-31 CARBON DIOXIDE [place] dioxide, Hospital total [Moles/vol ume] in Serum or Plasma ID Date Data Source [id number] 06/16/2018 05:53:00 AM [facility] Value Range Interpretation Description Data Sup porting Code Source(s) Document(s ) Chloride 100 98-107 CHLORIDE [place] [Moles/volum mmol/L Hospital e] in Serum or Plasma ID Date Data Source [id number] 06/16/2018 05:53:00 AM EST [facility] Name Value Range Interpretation Description Data Sup porting Code Source(s) Document(s ) Potassium 4.8 3.5-5.3 POTASSIUM [place] [Moles/volume mmol/L Hospital ] in Serum or Plasma ID Date Data Source [id number] 06/16/2018 05:53:00 AM EST [facility] Name Value Range Interpretation Description Data Sup porting Code Source(s) Document(s ) Sodium 137 136-145 SODIUM [place] [Moles/vol mmol/L Hospital ume] in Serum or Plasma ID Date Data Source [id number] 06/16/2018 05:53:00 AM [facility] Name Value Range Interpretation Description Data Sup porting Code Source(s) Document(s ) Glucose 120 mg/dL 74-106 Above high normal GLUCOSE [place] [Mass/volum Hospital e] in Serum or Plasma ID Date Data Source [id number] 06/16/2018 05:53:00 AM [facility] Name Value Range Interpretation Code Description Data Vandana rce(s) Supporting Document(s ) 0.0 % 0-0.2 NUCLEATED RBCS [place] (AUTO DIFF%)DIS Hospital ID Date Data Source [id number] 06/16/2018 05:53:00 AM EST [facility] Value Range Interpretation Description Data Sup porting Code Source(s) Document(s ) Differential MANUAL DIFF TYPE [place] cell count Hospital method - Blood ID Date Data Source [id number] 06/16/2018 05:53:00 AM [facility] Value Range Interpretation Description Data Sup porting Code Source(s) Document(s ) Cells 100 DIFF CELLS [place] Counted COUNTED Hospital Total [#] in Blood ID Date Data Source [id number] 06/16/2018 05:53:00 AM [facility] Value Range Interpretation Code Description Data Vandana rce(s) Supporting Document(s ) NORMAL PLATELET COMMENT [facility] ID Date Data Source [id number] 06/16/2018 05:53:00 AM [facility] Name Value Range Interpretation Code Description Data Vandana rce(s) Supporting Document(s ) OCC SCHISTOCYTES [facility] ID Date Data Source [id number] 06/16/2018 05:53:00 AM EST [place] [facility] Name Value Range Interpretation Code Description Data Vandana rce(s) Supporting Document(s ) OCC ELLIPTOCYTES [facility] ID Date Data Source [id number] 06/16/2018 05:53:00 AM EST [place] [facility] Name Value Range Interpretation Code Description Data Vandana rce(s) Supporting Document(s ) OCC TARGET CELLS [facility] ID Date Data Source [id number] 06/16/2018 05:53:00 AM EST [place] [facility] Name Value Range Interpretation Code Description Data Vandana rce(s) Supporting Document(s ) OCC OVALOCYTES [facility] ID Date Data Source [id number] 06/16/2018 05:53:00 AM EST [place] [facility] Name Value Range Interpretation Code Description Data Vandana rce(s) Supporting Document(s ) OCC POLYCHROMASIA [facility] ID Date Data Source [id number] 06/16/2018 05:53:00 AM EST [place] [facility] Name Value Range Interpretation Code Description Data Vandana rce(s) Supporting Document(s ) OCC MICROCYTOSIS [facility] ID Date Data Source [id number] 06/16/2018 05:53:00 AM EST [place] [facility] Name Value Range Interpretation Code Description Data Vandana rce(s) Supporting Document(s ) OCC POIKILOCYTOSIS [facility] ID Date Data Source [id number] 06/16/2018 05:53:00 AM EST [facility] [place] [facility] Name Value Range Interpretation Code Description Data Vandana rce(s) Supporting Document(s ) OCC ANISOCYTOSIS [facility] ID Date Data Source [id number] 06/16/2018 05:53:00 AM [facility] Name Value Range Interpretation Description Data Sup porting Code Source(s) Document(s ) Monocytes 1.02 0.0-1.0 Above high normal MONOCYTES (MAN [place] [#/volume] 10*3/uL DIFF #) Hospital in Blood by Manual count ID Date Data Source [id number] 06/16/2018 05:53:00 AM [facility] Name Value Range Interpretation Description Data Sup porting Code Source(s) Document(s ) Lymphocytes 0.60 1.2-3.5 Below low normal LYMPHOCYTES [facility] [#/volume] in 10*3/uL (MAN DIFF #) [facility] Blood by Hospital Manual count ID Date Data Source [id number] 06/16/2018 05:53:00 AM [facility] Value Range Interpretation Description Data Sup porting Code Source(s) Document(s ) Neutrophils 6.89 1.5-6.6 Above high normal NEUTROPHILS [facility] [#/volume] in 10*3/uL (MAN DIFF #) [facility] Blood by Hospital Manual count ID Date Data Source [id number] 06/16/2018 05:53:00 AM [facility] Value Range Interpretation Description Data Sup porting Code Source(s) Document(s ) Monocytes/100 12 % 2.0-12.0 MONOCYTES [place] leukocytes in Hospital Blood by Manual count ID Date Data Source [id number] 06/16/2018 05:53:00 AM [facility] Name Value Range Interpretation Description Data Sup porting Code Source(s) Document(s ) Lymphocytes/10 7 % 20.0-48.0 Below low normal LYMPHOCYTES [place] 0 leukocytes Hospital in Blood by Manual count ID Date Data Source [id number] 06/16/2018 05:53:00 AM [facility] Name Value Range Interpretation Description Data Sup porting Code Source(s) Document(s ) Band form 1 % 0-6.0 BANDS [place] neutrophils/100 Hospital leukocytes in Blood ID Date Data Source [id number] 06/16/2018 05:53:00 AM [facility] Name Value Range Interpretation Description Data Sup porting Code Source(s) Document(s ) Neutrophils/10 80 % 40.0-75. Above high normal SEGMENTED [place] 0 leukocytes 0 NEUTROPHILS Hospital in Blood by Manual count ID Date Data Source [id number] 06/16/2018 05:53:00 AM [facility] Name Value Range Interpretation Description Data Sup porting Code Source(s) Document(s ) Platelet 10.2 fL 9.6-12.8 MEAN PLATELET [place] mean volume VOLUME Hospital [Entitic volume] in Blood by Automated count ID Date Data Source [id number] 06/16/2018 05:53:00 AM [facility] Value Range Interpretation Description Data Sup porting Code Source(s) Document(s ) Platelets 193 150-400 PLATELET COUNT [place] [#/volume] 10*3/uL Hospital in Blood by Automated count ID Date Data Source [id number] 06/16/2018 05:53:00 AM [facility] Value Range Interpretation Description Data Sup porting Code Source(s) Document(s ) Erythrocyte 14.2 % 11.5-14. RED CELL [place] distribution 5 DISTRIBUTION [facility] width [Ratio] WIDTH Hospital by Automated count ID Date Data Source [id number] 06/16/2018 05:53:00 AM [facility] Name Value Range Interpretation Description Data Sup porting Code Source(s) Document(s ) Erythrocyte mean 32.6 31.0-36. MEAN [place] corpuscular g/dL 0 CORPUSCULAR [facility] hemoglobin HGB CONCEN Hospital concentration [Mass/volume] by Automated count ID Date Data Source [id number] 06/16/2018 05:53:00 AM [facility] Name Value Range Interpretation Description Data Sup porting Code Source(s) Document(s ) Erythrocyte 26.8 pg 27.0-34. Below low normal MEAN [place] mean 0 CORPUSCULAR [facility] corpuscular HEMOGLOBIN [facility] hemoglobin [Entitic mass] by Automated count ID Date Data Source [id number] 06/16/2018 05:53:00 AM [facility] Value Range Interpretation Description Data Sup porting Code Source(s) Document(s ) Erythrocyte 82.3 fL 80.0-96. MEAN White mean 0 CORPUSCULAR [facility] corpuscular VOLUME Hospital volume [Entitic volume] by Automated count ID Date Data Source [id number] 06/16/2018 05:53:00 AM [facility] Value Range Interpretation Description Data Sup porting Code Source(s) Document(s ) Hematocrit 33.4 % 42.0-50.0 Below low normal HEMATOCRIT [place] s [Volume Hospital Fraction] of Blood by Automated count ID Date Data Source [id number] 06/16/2018 05:53:00 AM [facility] Value Range Interpretation Description Data Sup porting Code Source(s) Document(s ) Hemoglobin 10.9 13.6-17. Below low normal HEMOGLOBIN [place] [Mass/volume] g/dL 0 Hospital in Blood ID Date Data Source [id number] 06/16/2018 05:53:00 AM [facility] Value Range Interpretation Description Data Sup porting Code Source(s) Document(s ) Erythrocytes 4.06 4.50-5.9 Below low normal RED BLOOD [place] [#/volume] in 10*6/uL 0 CELL COUNT [facility] Blood by Hospital Automated count ID Date Data Source [id number] 06/16/2018 05:53:00 AM [facility] Value Range Interpretation Description Data Sup porting Code Source(s) Document(s ) Leukocytes 8.5 4.0-10.0 WHITE BLOOD [place] [#/volume] in 10*3/uL CELL COUNT Hospital Blood by Automated count ID Date Data Source [id number] 06/16/2018 05:53:00 AM [facility] Name Value Range Interpretation Description Data Sup porting Code Source(s) Document(s ) Calcium 8.7 mg/dL 8.3-10.6 CALCIUM [place] [Mass/volum Hospital e] in Serum or Plasma ID Date Data Source [id number] 06/16/2018 05:53:00 AM [facility] Name Value Range Interpretation Description Data Sup porting Code Source(s) Document(s ) Urea 14.1 6.0-20.0 BUN/CREATININE [place] nitrogen/C RATIO Hospital reatinine [Mass Ratio] in Serum or Plasma ID Date Data Source [id number] 06/16/2018 05:53:00 AM [facility] Name Value Range Interpretation Description Data Sup porting Code Source(s) Document(s ) Creatinine 0.8 0.9-1.3 Below low normal CREATININE [place] [Mass/volume] mg/dL Hospital in Serum or Plasma ID Date Data Source [id number] 06/16/2018 05:53:00 AM [facility] Name Value Range Interpretation Description Data Sup porting Code Source(s) Document(s ) Urea 12 mg/dL 6-20 BLOOD UREA [place] nitrogen NITROGEN Hospital [Mass/volume ] in Serum or Plasma ID Date Data Source [id number] 06/16/2018 05:53:00 AM [facility] Name Value Range Interpretation Code Description Data Vandana rce(s) Supporting Document(s ) Anion gap in 12 6-18 ANION GAP [place] Serum or Hospital Plasma ID Date Data Source [id number] 06/16/2018 05:53:00 AM [facility] Name Value Range Interpretation Description Data Sup porting Code Source(s) Document(s ) Carbon 30 mmol/L 23-31 CARBON DIOXIDE [place] dioxide, Hospital total [Moles/vol ume] in Serum or Plasma ID Date Data Source [id number] 06/16/2018 05:53:00 AM [facility] Name Value Range Interpretation Description Data Sup porting Code Source(s) Document(s ) Chloride 100 98-107 CHLORIDE [place] [Moles/volum mmol/L Hospital e] in Serum or Plasma ID Date Data Source [id number] 06/16/2018 05:53:00 AM [facility] Name Value Range Interpretation Description Data Sup porting Code Source(s) Document(s ) Potassium 4.8 3.5-5.3 POTASSIUM [place] [Moles/volume mmol/L Hospital ] in Serum or Plasma ID Date Data Source [id number] 06/16/2018 05:53:00 AM [facility] Name Value Range Interpretation Description Data Sup porting Code Source(s) Document(s ) Sodium 137 136-145 SODIUM [place] [Moles/vol mmol/L Hospital ume] in Serum or Plasma ID Date Data Source [id number] 06/16/2018 05:53:00 AM [facility] Name Value Range Interpretation Description Data Sup porting Code Source(s) Document(s ) Glucose 120 mg/dL 74-106 Above high normal GLUCOSE [place] [Mass/volum Hospital e] in Serum or Plasma ID Date Data Source [id number] 06/16/2018 05:53:00 AM [facility] Name Value Range Interpretation Code Description Data Vandana rce(s) Supporting Document(s ) 0.0 % 0-0.2 NUCLEATED RBCS [place] (AUTO DIFF%)DIS Hospital ID Date Data Source [id number] 06/16/2018 05:53:00 AM EST [facility] Name Value Range Interpretation Description Data Sup porting Code Source(s) Document(s ) Differential MANUAL DIFF TYPE [place] cell count Hospital method - Blood ID Date Data Source [id number] 06/16/2018 05:53:00 AM EST [place] [facility] Name Value Range Interpretation Description Data Sup porting Code Source(s) Document(s ) Cells 100 DIFF CELLS [place] Counted COUNTED Hospital Total [#] in Blood ID Date Data Source [id number] 06/16/2018 05:53:00 AM EST [facility] Value Range Interpretation Code Description Data Vandana rce(s) Supporting Document(s ) NORMAL PLATELET COMMENT [facility] ID Date Data Source [id number] 06/16/2018 05:53:00 AM EST [facility] Name Value Range Interpretation Code Description Data Vandana rce(s) Supporting Document(s ) OCC SCHISTOCYTES [facility] ID Date Data Source [id number] 06/16/2018 05:53:00 AM [facility] Value Range Interpretation Code Description Data Vandana rce(s) Supporting Document(s ) OCC ELLIPTOCYTES [facility] ID Date Data Source [id number] 06/16/2018 05:53:00 AM EST [facility] Name Value Range Interpretation Code Description Data Vandana rce(s) Supporting Document(s ) OCC TARGET CELLS [facility] ID Date Data Source [id number] 06/16/2018 05:53:00 AM EST [facility] Name Value Range Interpretation Code Description Data Vandana rce(s) Supporting Document(s ) OCC OVALOCYTES [facility] ID Date Data Source [id number] 06/16/2018 05:53:00 AM [facility] Name Value Range Interpretation Code Description Data Vandana rce(s) Supporting Document(s ) OCC POLYCHROMASIA [facility] ID Date Data Source [id number] 06/16/2018 05:53:00 AM [facility] Name Value Range Interpretation Code Description Data Vandana rce(s) Supporting Document(s ) OCC MICROCYTOSIS [facility] ID Date Data Source [id number] 06/16/2018 05:53:00 AM [facility] Value Range Interpretation Code Description Data Vandana rce(s) Supporting Document(s ) OCC POIKILOCYTOSIS [facility] ID Date Data Source [id number] 06/16/2018 05:53:00 AM [facility] Value Range Interpretation Code Description Data Vandana rce(s) Supporting Document(s ) OCC ANISOCYTOSIS [facility] ID Date Data Source [id number] 06/16/2018 05:53:00 AM [facility] Value Range Interpretation Description Data Sup porting Code Source(s) Document(s ) Monocytes 1.02 0.0-1.0 Above high normal MONOCYTES (MAN [place] [#/volume] 10*3/uL DIFF #) Hospital in Blood by Manual count ID Date Data Source [id number] 06/16/2018 05:53:00 AM [facility] Name Value Range Interpretation Description Data Sup porting Code Source(s) Document(s ) Lymphocytes 0.60 1.2-3.5 Below low normal LYMPHOCYTES [facility] [#/volume] in 10*3/uL (MAN DIFF #) [facility] Blood by Hospital Manual count ID Date Data Source [id number] 06/16/2018 05:53:00 AM [facility] Name Value Range Interpretation Description Data Sup porting Code Source(s) Document(s ) Neutrophils 6.89 1.5-6.6 Above high normal NEUTROPHILS [place] [#/volume] in 10*3/uL (MAN DIFF #) [facility] Blood by Hospital Manual count ID Date Data Source [id number] 06/16/2018 05:53:00 AM [facility] Name Value Range Interpretation Description Data Sup porting Code Source(s) Document(s ) Monocytes/100 12 % 2.0-12.0 MONOCYTES [place] leukocytes in [facility] Blood by Manual count ID Date Data Source [id number] 06/16/2018 05:53:00 AM [facility] Name Value Range Interpretation Description Data Sup porting Code Source(s) Document(s ) Lymphocytes/10 7 % 20.0-48.0 Below low normal LYMPHOCYTES [place] 0 leukocytes Hospital in Blood by Manual count ID Date Data Source [id number] 06/16/2018 05:53:00 AM [facility] Name Value Range Interpretation Description Data Sup porting Code Source(s) Document(s ) Band form 1 % 0-6.0 BANDS [place] neutrophils/100 Hospital leukocytes in Blood ID Date Data Source [id number] 06/16/2018 05:53:00 AM [facility] Name Value Range Interpretation Description Data Sup porting Code Source(s) Document(s ) Neutrophils/10 80 % 40.0-75. Above high normal SEGMENTED [place] 0 leukocytes 0 NEUTROPHILS Hospital in Blood by Manual count ID Date Data Source [id number] 06/16/2018 05:53:00 AM [facility] Name Value Range Interpretation Description Data Sup porting Code Source(s) Document(s ) Platelet 10.2 fL 9.6-12.8 MEAN PLATELET [place] mean volume VOLUME Hospital [Entitic volume] in Blood by Automated count ID Date Data Source [id number] 06/16/2018 05:53:00 AM [facility] Name Value Range Interpretation Description Data Sup porting Code Source(s) Document(s ) Platelets 193 150-400 PLATELET COUNT [place] [#/volume] 10*3/uL Hospital in Blood by Automated count ID Date Data Source [id number] 06/16/2018 05:53:00 AM [facility] Value Range Interpretation Description Data Sup porting Code Source(s) Document(s ) Erythrocyte 14.2 % 11.5-14. RED CELL [place] distribution 5 DISTRIBUTION [facility] width [Ratio] WIDTH Hospital by Automated count ID Date Data Source [id number] 06/16/2018 05:53:00 AM [facility] Value Range Interpretation Description Data Sup porting Code Source(s) Document(s ) Erythrocyte mean 32.6 31.0-36. MEAN [facility] corpuscular g/dL 0 CORPUSCULAR [place] hemoglobin HGB CONCEN Hospital concentration [Mass/volume] by Automated count ID Date Data Source [id number] 06/16/2018 05:53:00 AM [facility] Value Range Interpretation Description Data Sup porting Code Source(s) Document(s ) Erythrocyte 26.8 pg 27.0-34. Below low normal MEAN [place] mean 0 CORPUSCULAR [facility] corpuscular HEMOGLOBIN Hospital hemoglobin [Entitic mass] by Automated count ID Date Data Source [id number] 06/16/2018 05:53:00 AM [facility] Value Range Interpretation Description Data Sup porting Code Source(s) Document(s ) Erythrocyte 82.3 fL 80.0-96. MEAN [place] mean 0 CORPUSCULAR [facility] corpuscular VOLUME Hospital volume [Entitic volume] by Automated count ID Date Data Source [id number] 06/16/2018 05:53:00 AM [facility] Value Range Interpretation Description Data Sup porting Code Source(s) Document(s ) Hematocrit 33.4 % 42.0-50.0 Below low normal HEMATOCRIT [place] [Volume Hospital Fraction] of Blood by Automated count ID Date Data Source [id number] 06/16/2018 05:53:00 AM [facility] Name Value Range Interpretation Description Data Sup porting Code Source(s) Document(s ) Hemoglobin 10.9 13.6-17. Below low normal HEMOGLOBIN [place] [facility] [Mass/volume] g/dL 0 Hospital in Blood ID Date Data Source [id number] 06/16/2018 05:53:00 AM [facility] Name Value Range Interpretation Description Data Sup porting Code Source(s) Document(s ) Erythrocytes 4.06 4.50-5.9 Below low normal RED BLOOD [place] [#/volume] in 10*6/uL 0 CELL COUNT [facility] Blood by Hospital Automated count ID Date Data Source [id number] 06/16/2018 05:53:00 AM [facility] Name Value Range Interpretation Description Data Sup porting Code Source(s) Document(s ) Leukocytes 8.5 4.0-10.0 WHITE BLOOD [place] [#/volume] in 10*3/uL CELL COUNT [facility] Blood by Automated count ID Date Data Source [id number] 06/13/2018 05:03:00 PM [facility] Marriage Therapist: ROSSANA ART NT Name Value Range Interpretation Description Data Sup porting Code Source(s) Document(s ) Glucose 106 74-106 METER GLUCOSE [place] [Mass/volume] mg/dL Hospital in Capillary blood by Glucometer ID Date Data Source [id number] 06/13/2018 05:03:00 PM [facility] Marriage Therapist: ROSSANA ART NT Name Value Range Interpretation Description Data Sup porting Code Source(s) Document(s ) Glucose 106 74-106 METER GLUCOSE [place] [Mass/volume] mg/dL Hospital in Capillary blood by Glucometer Procedure Social History Code Duration Value Status Description Data Source(s ) Smoking 2019 Former Sm[facility] Smoking 2019 Former Smoker completed Former Smoker eCW3 ( [facility]son 12:00:00 AM [facility]) Former Smoker completed Former Smoker eCW3 ([facility]) Former Smoker completed Former Smoker eCW3 ([facility]) Smoking Unknown if ever completed Unknown if ever Ernesto Gutierrez smoked [facility] Smoking Unknown if ever completed Unknown if ever eCW2 ([facility]) Smoking Ex-smoker completed Ex-smoker (finding) [place] (finding) [facility] Smoking Ex-smoker completed Ex-smoker (finding) [place] (finding) [facility] Vital Signs ID Date Data Source [id number] Name Value Range Interpretation Code Description Data Source(s) Diastolic blood 85 mm[Hg] 85 mm[Hg] eCW3 ([facility]) Systolic blood 121 mm[Hg] 121 mm[Hg] eCW3 ([facility]) Body temperature 98.7 [degF] 98.7 [degF] eCW3 ( [facility]) Body mass index 16.21 kg/m2 16.21 kg/m2 eCW3 ([facility] (BMI) [Ratio] [facility]) Body weight 102 [lb_av] 102 [lb_av] eCW3 ([facility]) Body height 66.5 [in_i] 66.5 [in_i] eCW3 ([facility]) Diastolic blood 65 mm[Hg] 65 mm[Hg] eCW3 ([facility]) Systolic blood 106 mm[Hg] 106 mm[Hg] eCW3 ([facility]) Body temperature 98.5 [degF] 98.5 [degF] eCW3 ( [facility]) Body height 66.5 [in_i] 66.5 [in_i] eCW3 ([facility]) Patient Treatment Plan of Care Planned Activity Planned Date Details Description Data Source (s) 28 ACTUAT tiotropium 0.0025 10/02/2019 eCW3 ([place] MG/ACTUAT Metered Dose 12:00:00 AM [facility]) Inhaler [Spiriva] 24 HR Nicotine 0.292 MG/HR 07/30/2019 e CW3 ([place] Transdermal Patch 12:00:00 AM [facility]) 120 ACTUAT Budesonide 0.16 07/24/2019 e CW3 ([place] MG/ACTUAT / formoterol 12:00:00 AM [facility]) fumarate 0.0045 MG/ACTUAT Metered Dose Inhaler [Symbicort] 120 ACTUAT Fluticasone 06/05/2019 eCW3 ([place] propionate 0.23 MG/ACTUAT / 12:00:00 AM [facility]) salmeterol 0.021 MG/ACTUAT Metered Dose Inhaler [Advair] Zolpidem tartrate 5 MG Oral 06/19/2018 [place] Tablet 12:00:00 AM [facility] Methylprednisolone (Medrol 06/19/2018 W rg [facility] Dose-Tristan 4MG Tab*) 4 Mg 12:00:00 AM [facility] H ospital Tab.ds.pk Hydromorphone Hydrochloride 2 06/19/2018 [place] MG Oral Tablet [Dilaudid] 12:00:00 AM [facility] heparin sodium, porcine 5000 06/19/2018 [place] UNT/ML Injectable Solution 12:00:00 AM [facility] Acetaminophen 325 MG Oral 06/19/2018 [facility] [facility] Tablet [Mapap] 12:00:00 AM [facility] Zolpidem tartrate 5 MG Oral 06/19/2018 [place] Tablet 12:00:00 AM [facility] Methylprednisolone (Medrol 06/19/2018 W rg [facility] Dose-Tristan 4MG Tab*) 4 Mg 12:00:00 AM [facility] H ospital Tab.ds.pk Hydromorphone Hydrochloride 2 06/19/2018 [place] MG Oral Tablet [Dilaudid] 12:00:00 AM [facility] heparin sodium, porcine 5000 06/19/2018 [place] UNT/ML Injectable Solution 12:00:00 AM [facility] Acetaminophen 325 MG Oral 06/19/2018 Wh [facility]e [facility] Tablet [Mapap] 12:00:00 AM [facility] Ensure Enlive - eCW3 ([facility]) 200 ACTUAT Albuterol 0.09 eC W3 ([place] MG/ACTUAT Dry Powder Inhaler [facility]) [ProAir] Acetaminophen 325 MG / [place] Oxycodone Hydrochloride 5 MG Hospital Oral Tablet [Percocet] Naproxen 500 MG Oral Tablet [place] [[facility]] [facility] Salmeterol [place] Xinafoate/Fluticasone ([facility] 250/50 Diskus*) 250 Mcg-50 Mcg/Dose Blst.w.dev 120 ACTUAT Albuterol 0.1 [facility] [place] MG/ACTUAT / [facility] 0.02 MG/ACTUAT Metered Dose Inhaler [Combivent] gabapentin 300 MG Oral [place] Capsule [[facility]] [facility] Acetaminophen 325 MG / [place] Oxycodone Hydrochloride 5 MG Hospital Oral Tablet [Percocet] Naproxen 500 MG Oral Tablet [place] [[facility]] [facility] X[facility]ate/Fluticasone ([facility] 250/50 Diskus*) 250 Mcg-50 Mcg/Dose Blst.w.dev 120 ACTUAT Albuterol 0.1 Whi [facility] [place] MG/ACTUAT / Ipratropium [facility] [place] 0.02 MG/ACTUAT Metered Dose Inhaler [Combivent] gabapentin 300 MG Oral [place] Capsule [[facility]] [facility]
[2020-02-02] MEDS ORDERED: NEOSTIGMINE METHYLSULFATE 0.5 MG/ML - 10 ML MDV ONE (17:53)
--- NOTE | 2020-02-02 18:29 | CONSULT ---
Consult Consult Specialty:: Surgery Reason for Consultation:: SBO - History of Present Illness Chief Complaint: abdominal pain History of Present Illness: 69 yo Male with PMHx of COPD, Hep C, multiple abdominal surgeries and recurrent SBOs who presents with abdominal pain, nausea, and vomiting since last night. Pain started after the patient had dinner. Was d/c from here 3 weeks ago for SBO that resolved with NPO and NG tube. Patient currently experiencing bilious vomiting - History Source History Provided By: Patient Limitations to Obtaining History: No Limitations - Past Medical History Pulmonary: Yes: COPD Gastrointestinal: Yes: Other (recurrent SBO - s/p SB resection for SBO, revision of SB anastomosis for SBO) Hepatobiliary: Yes: Hepatitis C Musculoskeletal: Yes: Chronic low back pain, Osteoarthritis (uses walker at home) - Past Surgical History Past Surgical History: Yes: Appendectomy, Colonoscopy, Hernia Repair (right inguinal (unknown if mesh used)) - Alcohol/Substance Use Hx Alcohol Use: Yes (quit a few years ago, rarely now) History of Substance Use: reports: Prescription (uses Rx oxycodone/pain meds as prescribed). denies: Marijuana (has medical MJ card but has not used any yet) - Smoking History Smoking history: Unknown if ever smoked Have you smoked in the past 12 months: No Aproximately how many cigarettes per day: 4 If you are a former smoker, when did you quit?: 1 yr ago - Social History ADL: Independent History of Recent Travel: No Home Medications - Allergies Allergies/Adverse Reactions: Allergies Allergy/AdvReac Type Severity Reaction Status Date / Time No Known Allergies Allergy Verified 02/02/20 09:54 - Home Medications Home Medications: Ambulatory Orders Ipratropium/Albuterol Sulfate [Combivent Respimat 20-100 Mcg] 4 gm IH BID 10/13/17 Fluticasone/Salmeterol [Advair 250-50 Diskus] 1 each IH BID 06/15/19 Gabapentin [Neurontin] 300 mg PO HS 06/15/19 traZODone HCL [Trazodone HCl] 50 mg PO HS PRN 06/15/19 Doxepin HCl 75 mg PO DAILY 06/30/19 Mirtazapine 30 mg PO DAILY 06/30/19 Review of Systems - Review of Systems Eyes: reports: No Symptoms HENT: reports: No Symptoms Neck: reports: No Symptoms Cardiovascular: reports: No Symptoms Respiratory: reports: No Symptoms Gastrointestinal: reports: Abdominal Pain, Vomiting Genitourinary: reports: No Symptoms Integumentary: reports: No Symptoms Neurological: reports: No Symptoms Endocrine: reports: No Symptoms Physical Exam Vital Signs: Vital Signs Temperature 98.3 F 02/02/20 14:27 Pulse Rate 88 02/02/20 14:27 Respiratory Rate 02/02/20 14:27 Blood Pressure 115/74 02/02/20 14:27 O2 Sat by Pulse Oximetry (%) 97 02/02/20 14:27 Constitutional: Yes: Anxious HENT: Yes: Normocephalic Neck: Yes: Supple Cardiovascular: Yes: Regular Rate and Rhythm Respiratory: Yes: CTA Bilaterally Gastrointestinal: Yes: Distention (flat and rigid), Tenderness (diffuse guarding and rigidity) ...Rectal Exam: Yes: Deferred Extremities: Yes: WNL Neurological: Yes: Alert, Oriented Labs: CBC, BMP 02/02/20 10:00 02/02/20 09:57 Imaging - Results Cat Scan: Report Reviewed, Image Reviewed Problem List - Problems (1) Pneumoperitoneum Assessment/Plan: emergency laparotomy Code(s): K66.8 - OTHER SPECIFIED DISORDERS OF PERITONEUM (2) SBO (small bowel obstruction) Assessment/Plan: emergency laparotomy Code(s): K56.609 - UNSP INTESTNL OBST, UNSP TO PARTIAL VERSUS COMPLETE OBST
--- NOTE | 2020-02-02 18:32 | OP ---
Operative Note - Note: Operative Date: 02/02/20 Pre-Operative Diagnosis: SBO, Pneumoperitoneum Operation: Exploratory lapartomy, NHI, enterorrhaphy Findings: high grade SBO from sb adhesions to the posterior abdominal wall, no hollow viscus perforation Post-Operative Diagnosis: Other (SBO) Surgeon: [facility] Cma: Shanya Mg Anesthesia: General Operative Report Dictated: Yes
[2020-02-02] MEDS ORDERED: KETOROLAC TROMETHAMINE 30 MG/1 ML VIAL ONE (18:44)
[2020-02-02] MEDS: KETOROLAC TROMETHAMINE 15 MG/ML VIAL IVPUSH PRN (18:50)
[2020-02-02] MEDS: ACETAMINOPHEN 1000 MG/100 ML VIAL (NON FORMULARY) IVPB SCH (18:55)
[2020-02-02] MEDS ORDERED: HYDROmorphone HCl 2 MG/ML VIAL IVPUSH ONE (19:37)
[2020-02-02] MEDS ORDERED: HYDROmorphone HCl 2 MG/ML VIAL ONE (19:45)
[2020-02-02] MEDS: LACTATED RINGERS SOLUTION 1,000 ML IV SCH (21:00)
[2020-02-02] MEDS ORDERED: CHLORHEXIDINE GLUCONATE 4% CLEANSER FOR DECOLONIZATION TP SCH (22:00)
[2020-02-02] MEDS: HEPARIN NA (PORCINE) 5,000 UNITS/ML 1ML VIAL SQ SCH (22:02)
[2020-02-02] MEDS: BUDESONIDE/FORMETEROL FUMARATE 80/4.5 mcg INHALER IH SCH (23:23)
[2020-02-02] MEDS: DOXEPIN HCL 25 MG CAPSULE PO SCH (23:25)
[2020-02-03] MEDS: ACETAMINOPHEN 1000 MG/100 ML VIAL (NON FORMULARY) IVPB SCH ×3 (01:00→12:57)
[2020-02-03] MEDS: morphine SULFATE 4 MG/ML VIAL IVPUSH PRN ×5 (03:41→22:48)
[2020-02-03] MEDS: LACTATED RINGERS SOLUTION 1,000 ML IV SCH (06:49)
[2020-02-03] MEDS ORDERED: PT OWN MED DRAWER 7, Y5N ONE ×3 (07:07→21:38)
[2020-02-03] MEDS ORDERED: PHENYLEPHRINE HCL 10 MG/1 ML SINGLE DOSE VIAL ONE (07:46)
--- NOTE | 2020-02-03 08:11 | SURG ---
Surgery Grizzlyman Note Grizzlyman: Shayna Mg PA-C Date of Service: 02/02/20 Diagnosis: SBO, Pneumoperitoneum Procedure: Operation: Exploratory lapartomy, NHI, enterorrhaphy I was present for the entirety of the operative procedure. For further detail, please refer to operative report. Visit type - Case Type Case Type: ED Admission - Emergency Emergency Visit: Yes ED Registration Date: 02/02/20 Care time: The patient presented to the Emergency Department on the above date and was hospitalized for further evaluation of their emergent condition. - New patient This patient is new to me today: Yes Date on this admission: 02/02/20
[2020-02-03 08:21] LABS: BASO % 0.1 % (0-2.0); HEMATOCRIT 33.9 % (35.4-49); HEMOGLOBIN 10.9 GM/dL (11.7-16.9); LYMPH % 8.8 % (8-40); MCH 27.2 pg (25.7-33.7); MCHC 32.2 g/dl (32.0-35.9); MEAN CELL VOLUME 84.4 fl (80-96); MEAN PLT VOLUME 8.8 fl (7.5-11.1); MONO % 6.8 % (3.8-10.2); NEUT % 84.3 % (42.8-82.8); PLATELET COUNT 268 K/MM3 (134-434); RBC 4.01 M/mm3 (4.00-5.60); WHITE BLOOD COUNT 9.3 K/mm3 (4.0-10.0)
[2020-02-03] MEDS: KETOROLAC TROMETHAMINE 15 MG/ML VIAL IVPUSH PRN ×2 (08:39→14:52)
[2020-02-03 08:43] LABS: BILIRUBIN,TOTAL 0.5 mg/dL (0.2-1); BLOOD UREA NITROGEN 16.2 mg/dL (7-18); CALCIUM 8.6 mg/dL (8.5-10.1); CREATININE 1.1 mg/dL (0.55-1.3); MAGNESIUM 1.8 mg/dL (1.8-2.4); PHOSPHOROUS 3.8 mg/dL (2.5-4.9); POTASSIUM 4.5 mmol/L (3.5-5.1)
[2020-02-03 09:28] LABS: EPI CELLS 7 /uL (0-25.1); HYALINE CASTS 1 /uL (0-3.1); PH,URINE 5.5 (5.0-8.0); URINE APPEARANCE CLEAR; URINE BACTERIA 7 /uL (0-1359); URINE BILIRUBIN NEGATIVE (NEGATIVE); URINE COLOR YELLOW; URINE GLUCOSE (UA) NEGATIVE (NEGATIVE); URINE KETONE TRACE (NEGATIVE); URINE LEUK ESTERASE NEGATIVE (NEGATIVE); URINE NITRITE NEGATIVE (NEGATIVE); URINE PROTEIN NEGATIVE (NEGATIVE); URINE RBC 38 /uL (0-23.9); URINE UROBILINOGEN 0.2 mg/dL (0.2-1.0); URINE WBC 6 /uL (0-25.8)
--- NOTE | 2020-02-03 09:30 | PN ---
Progress Note (short form) - Note Progress Note: 69yo M s/p ex-lap for acute abdomen with lysis of adhesions, POD 1. Pt seen and examined at bedside. Pt denies fever, chills, n/v. Pt complaining of significant abd pain. Denies BM or flatus, NGT in place. Last Vital Signs Temp Pulse Resp BP Pulse Ox 98.2 F 87 18 100/70 100 02/03/20 08:25 02/03/20 08:25 02/03/20 08:25 02/03/20 08:25 02/03/20 08:25 CBC, BMP 02/03/20 06:40 02/03/20 06:40 PE: Gen: A&O X3 Resp: breathing comfortably Abd: soft, nondistended, moderate tenderness with palpation, incision dressing clean. Ext: no edema Problem List - Problems (1) SBO (small bowel obstruction) Assessment/Plan: Plan -pt will need further pain control, spoke with anesthesia who will see -keep NPO, IVF, NGT -oob/ambulate -d/c sandhu -dvt ppx Code(s): K56.609 - UNSP INTESTNL OBST, UNSP TO PARTIAL VERSUS COMPLETE OBST
--- NOTE | 2020-02-03 09:55 | OP ---
DATE OF OPERATION: 02/02/2020 PROCEDURE: Exploratory laparotomy, lysis of adhesions and enterorrhaphy. PREOPERATIVE DIAGNOSIS: Small-bowel obstruction, rule out pneumoperitoneum. POSTOPERATIVE DIAGNOSIS: High grade small-bowel obstruction secondary to adhesions. SURGEON: Brendon Snyder MD ADMISSIONS DEAN: CAMILA Mcdonald ANESTHESIA: General endotracheal. FINDINGS & PROCEDURE: This is a 69-year-old male with history of multiple abdominal surgeries and admissions for small-bowel obstruction. The last operative procedure was in 2016 for small-bowel obstruction where a bowel resection was done with primary anastomosis. Patient was admitted a few weeks ago for abdominal pain for which he was treated conservatively with improvement. So, patient now returns with 1 day history of severe abdominal pain associated with nausea and vomiting. The preop CT scan of the abdomen and pelvis revealed a high grade small-bowel obstruction and area in the right upper quadrant suspicious for pneumoperitoneum. On physical exam patient had a rigid abdomen with generalized tenderness. So, patient was advised emergency laparotomy and consent was obtained after discussing the risks, benefits and alternatives to the procedure. Patient was brought to the operating room and placed in supine position. General endotracheal anesthesia was then administered. The abdomen was prepped and draped in the usual sterile fashion. A Courtney catheter was also inserted. Using scalpel blade No. 10 a 12-cm upper midline incision with the incision extended to non-scarred area of the upper midline to enter a [place]. Further dissection using Bovie cautery was done until the fascia was visualized. The fascia was then incised to enter the peritoneal cavity in the superior portion of the wound. Further dissection using Metzenbaum scissors was done and a dense adhesion of the small-bowel was encountered. This was carefully taken down from the abdominal wall using the Metzenbaum scissors. A 1 cm serosal tear was inadvertently created. This was repaired with 1 Lembert suture using silk 3-0. Loop of small-bowel was completely taken down. The entire small-bowel starting from ligament of Treitz was explored down to the ileocecal junction. Multiple non-obstructed flimsy adhesions were taken down and at least 2 small-bowel anastomoses were noted. After it was ascertained that no potential adhesive band causing bowel obstruction was present, the abdominal cavity was closed with continuous PDS looped 0 suture and followed by skin closure with candice. The wound was then covered with sterile dressing. The patient was successfully extubated and transferred to the postanesthesia care unit in satisfactory condition. Estimated blood loss was about 25 mL. Wound class clean-contaminated. The patient was started on intravenous antibiotics upon admission. BRENDON SNYDER M.D. [id number]
[2020-02-03] MEDS ORDERED: PANTOPRAZOLE SODIUM 40 MG VIAL IVPUSH SCH (10:00)
[2020-02-03] MEDS: HEPARIN NA (PORCINE) 5,000 UNITS/ML 1ML VIAL SQ SCH ×2 (10:50→22:03)
[2020-02-03] MEDS: BUDESONIDE/FORMETEROL FUMARATE 80/4.5 mcg INHALER IH SCH ×2 (10:51→21:40)
--- NOTE | 2020-02-03 13:41 | PN ---
Teaching Attending Note Name of Resident: Jan Deng ATTENDING PHYSICIAN STATEMENT I saw and evaluated the patient. I reviewed the resident's note and discussed the case with the resident. I agree with the resident's findings and plan as documented. SUBJECTIVE: Seen and examined at bedside. POD 1 status post ex lap for acute abdomen with l ysis of adhesions. Patient reports significant abdominal pain, denies BM or flatus, NGT in place. OBJECTIVE Last Vital Signs Temp Pulse Resp BP Pulse Ox 98.2 F 87 18 100/70 100 02/03/20 08:25 02/03/20 08:25 02/03/20 08:25 02/03/20 08:25 02/03/20 08:25 PE: Per resident note Labs/Imaging: reviewed ASSESSMENT/PLAN 69-year-old male with a past medical history of COPD, hep C, multiple abdominal surgeries and recurrent SBO's presented abdominal pain nausea and vomiting found to have SBO. Patient was sent for emergent laparotomy due to concern of pneumoperitoneum. #Small bowel obstruction Status post ex lap postop day 1 Surgery on board: Appreciate recommendations NGT in place Has not passed flatus or had bowel movement Painnausea control Fluids #COPD on home O2 Continue home Advair Duo nebs O2 as needed
[2020-02-03] MEDS ORDERED: HYDROmorphone *PCA* 10MG/50ML DISP.SYRIN PCA SCH (14:13)
[2020-02-03] MEDS: MUPIROCIN 2% TOPICAL OINTMENT FOR DECOLONIZATION NS SCH (15:17)
[2020-02-03] MEDS ORDERED: PROMETHAZINE HCL 25 MG/1 ML VIAL IVPUSH PRN (15:19)
--- NOTE | 2020-02-03 17:09 | PN ---
Progress Note, Physician Chief Complaint: s/p exploratory laparotomy, NHI POD # 1 Patient has less pain - Current Medication List Current Medications: Active Medications Budesonide/Formoterol Fumarate (Symbicort 80/4.5mcg -) 2 puff IH BID [facility] Last Admin: 02/03/20 10:51 Dose: 2 puff Documented by: Chlorhexidine Gluconate (Hibiclens For Decolonization -) 1 applic TP HS [facility] Doxepin HCl (Sinequan -) 75 mg PO [facility] Last Admin: 02/02/20 23:25 Dose: Not Given Documented by: Heparin Sodium (Porcine) (Heparin -) 5,000 unit SQ BID [facility] Last Admin: 02/03/20 10:50 Dose: 5,000 unit Documented by: Lactated Ringer's (Lactated Ringers Solution) 1,000 mls @ 125 mls/hr IV ASDIR [facility] Last Admin: 02/03/20 06:49 Dose: 125 mls/hr Documented by: Metronidazole (Flagyl 250mg Premixed Ivpb -) 250 mg in 50 mls @ 50 mls/hr IVPB Q8H-IV [facility] Stop: 02/03/20 18:39 Last Admin: 02/03/20 10:50 Dose: 50 mls/hr Documented by: Ketorolac Tromethamine (Toradol Injection -) 15 mg IVPUSH Q6H PRN PRN Reason: PAIN LEVEL 1-5 Last Admin: 02/03/20 14:52 Dose: 15 mg Documented by: Mirtazapine (Remeron -) 30 mg PO [facility] Morphine Sulfate (Morphine Sulfate) 6 mg IVPUSH Q4H PRN PRN Reason: PAIN LEVEL 6-10 Mupirocin (Bactroban Ointment (For Decolonization) -) 1 applic NS BID [facility] Stop: 02/07/20 21:59 Non-Formulary Medication (Ipratropium/Albuterol Sulfate) 4 gm IH BID [facility] Pantoprazole Sodium (Protonix Iv) 40 mg IVPUSH DAILY [facility] Promethazine HCl (Phenergan Injection -) 12.5 mg IVPUSH Q6H PRN PRN Reason: NAUSEA-FOR RESCUE AFTER 15 MIN - Objective Vital Signs: Vital Signs Temperature 98.2 F 02/03/20 08:25 Pulse Rate 87 02/03/20 08:25 Respiratory Rate 18 02/03/20 08:25 Blood Pressure 100/70 02/03/20 08:25 O2 Sat by Pulse Oximetry (%) 100 02/03/20 08:25 Constitutional: Yes: No Distress Gastrointestinal: Yes: Soft, Distention (none), Tenderness (midline wound) Wound/Incision: Yes: Dressing Dry and Intact Labs: CBC, BMP 02/03/20 06:40 02/03/20 06:40 INR, PTT INR 1.09 (0.83-1.09) 02/02/20 10:00 Problem List - Problems (1) Pneumoperitoneum Code(s): K66.8 - OTHER SPECIFIED DISORDERS OF PERITONEUM (2) SBO (small bowel obstruction) Assessment/Plan: Doing well and stable continue NGT decompression until return of bowel function and IVF OOB, IS, GI, & DVT prophylaxis Code(s): K56.609 - UNSP INTESTNL OBST, UNSP TO PARTIAL VERSUS COMPLETE OBST
[2020-02-03] MEDS ORDERED: LACTATED RINGERS SOLUTION 1,000 ML IV SCH (17:11)
--- NOTE | 2020-02-03 19:19 | PN ---
Physical Exam: SUBJECTIVE: Patient seen and examined at bedside. POD#[address] Snyder for high grade SBO. OBJECTIVE: Vital Signs Period Temp Pulse Resp BP Sys/Monsalve Pulse Ox Last 24 Hr 98.0 F-98.6 F 86-101 10-20 92-126/62-83 95-100 GENERAL: NAD HEAD: Normal with no signs of trauma. EYES: EOMI Sclera Clear NECK: Trachea midline, full range of motion, supple. LUNGS: Decreased BS at bases HEART: RRR S1S2 ABDOMEN: Surgical bandage mid abdomen. Diffusely tender to light touch. BS+. EXTREMITIES: No CCE NEUROLOGICAL: Cranial nerves II through XII grossly intact. Normal speech, gait not observed. PSYCH: Normal mood, normal affect. SKIN: Warm, dry, normal turgor, no rashes or lesions noted Laboratory Results - last 24 hr 02/02/20 02/02/20 02/03/20 06:40 16:00 06:40 WBC RBC Hgb Hct MCV MCH MCHC RDW Plt Count MPV Absolute Neuts (auto) Neutrophils % Lymphocytes % Monocytes % Eosinophils % Basophils % Nucleated RBC % Sodium 137 Potassium 4.5 Chloride 101 Carbon Dioxide 28 Anion Gap 8 BUN 16.2 Creatinine 1.1 Est GFR (CKD-EPI)AfAm 77.86 Est GFR (CKD-EPI)NonAf 67.18 Random Glucose 104 Calcium 8.6 Phosphorus 3.8 Magnesium 1.8 Total Bilirubin 0.5 AST 14 L ALT 11 L Alkaline Phosphatase 43 L Total Protein 6.0 L Albumin 3.0 L Urine Color Yellow Urine Appearance Clear Urine pH 5.5 D Ur Specific [place] 1.058 H Urine Protein Negative Urine Glucose (UA) Negative Urine Ketones Trace H Urine Blood Negative Urine Nitrite Negative Urine Bilirubin Negative Urine Urobilinogen 0.2 Ur Leukocyte Esterase Negative Urine WBC (Auto) 6 Urine RBC (Auto) 38 Urine Casts (Auto) 1 U Epithel Cells (Auto) 7 Urine Bacteria (Auto) 7 COVID-19 (WENDI) Not detected 02/03/20 06:40 WBC 9.3 RBC 4.01 Hgb 10.9 L Hct 33.9 L MCV 84.4 MCH 27.2 MCHC 32.2 RDW 16.0 H Plt Count 268 MPV 8.8 Absolute Neuts (auto) 7.9 Neutrophils % 84.3 H D Lymphocytes % 8.8 D Monocytes % 6.8 Eosinophils % 0.0 D Basophils % 0.1 Nucleated RBC % 0 Sodium Potassium Chloride Carbon Dioxide Anion Gap BUN Creatinine Est GFR (CKD-EPI)AfAm Est GFR (CKD-EPI)NonAf Random Glucose Calcium Phosphorus Magnesium Total Bilirubin AST ALT Alkaline Phosphatase Total Protein Albumin Urine Color Urine Appearance Urine pH Ur Specific [place] Urine Protein Urine Glucose (UA) Urine Ketones Urine Blood Urine Nitrite Urine Bilirubin Urine Urobilinogen Ur Leukocyte Esterase Urine WBC (Auto) Urine RBC (Auto) Urine Casts (Auto) U Epithel Cells (Auto) Urine Bacteria (Auto) COVID-19 (WENDI) Active Medications Generic Name Dose Route Start Last Admin Trade Name Freq PRN Reason Stop Dose Admin Budesonide/Formoterol Fumarate 2 puff 02/02/20 22:00 02/03/20 10:51 Symbicort 80/4.5mcg - IH 2 puff BID [facility] Administration Chlorhexidine Gluconate 1 applic 02/03/20 22:00 Hibiclens For Decolonization - TP HS [facility] Doxepin HCl 75 mg 02/02/20 22:00 02/02/20 23:25 Sinequan - PO Not Given HS [facility] Heparin Sodium (Porcine) 5,000 unit 02/02/20 22:00 02/03/20 10:50 Heparin - SQ 5,000 unit BID [facility] Administration Lactated Ringer's 1,000 mls @ 100 mls/hr 02/03/20 17:11 02/03/20 17:58 Lactated Ringers Solution IV 100 mls/hr ASDIR [facility] Administration Ketorolac Tromethamine 15 mg 02/02/20 18:44 02/03/20 14:52 Toradol Injection - IVPUSH 15 mg Q6H PRN Administration PAIN LEVEL 1-5 Mirtazapine 30 mg 02/03/20 22:00 Remeron - PO HS [facility] Morphine Sulfate 6 mg 02/03/20 14:47 02/03/20 17:58 Morphine Sulfate IVPUSH 6 mg Q4H PRN Administration PAIN LEVEL 6-10 Mupirocin 1 applic 02/03/20 22:00 Bactroban Ointment (For Decolonization) - NS 02/07/20 21:59 BID [facility] Non-Formulary Medication 4 gm 02/02/20 22:00 Ipratropium/Albuterol Sulfate IH BID [facility] Pantoprazole Sodium 40 mg 02/04/20 10:00 Protonix Iv IVPUSH DAILY [facility] Promethazine HCl 12.5 mg 02/03/20 15:19 Phenergan Injection - IVPUSH Q6H PRN NAUSEA-FOR RESCUE AFTER 15 MIN ASSESSMENT/PLAN: 69-year-old male with a past medical history of COPD, hep C, multiple abdominal surgeries and recurrent SBO's presented abdominal pain nausea and vomiting found to have SBO. Patient was sent for emergent laparotomy due to concern of pneumoperitoneum. #Small bowel obstruction POD#[address] Brendon Snyder Surgery on board- Dr Snyder continue NGT decompression until return of bowel function and IVF OOB, IS, GI, & DVT prophylaxis -EMR indicates patient received pre-op Flagyl, Zosyn, and Levofloxacin. #COPD on home O2 Continue home Advair Duo nebs O2 as needed #FEN LR@100 Monitor Electrolytes NPO #DVT ppx: Hep SQ TID #Dispo Med Surg Visit type - Emergency Visit Emergency Visit: Yes ED Registration Date: 02/02/20 Care time: The patient presented to the Emergency Department on the above date and was hospitalized for further evaluation of their emergent condition. - New Patient This patient is new to me today: Yes Date on this admission: 02/03/20 - Critical Care Critical Care patient: No - Discharge Referral Referred to [facility] Med P.C.: No - Medication Review Med list reviewed for High Risk Meds patients 65 and older: No ATTENDING PHYSICIAN STATEMENT I saw and evaluated the patient. I reviewed the resident's note and discussed the case with the resident. I agree with the resident's findings and plan as documented. SUBJECTIVE: OBJECTIVE: ASSESSMENT AND PLAN:
[2020-02-03] MEDS: MIRTAZAPINE 15 MG TABLET (FP) PO SCH (21:40)
[2020-02-03] MEDS: DOXEPIN HCL 25 MG CAPSULE PO SCH (21:40)
[2020-02-04] MEDS: morphine SULFATE 4 MG/ML VIAL IVPUSH PRN ×3 (03:44→19:11)
[2020-02-04] MEDS ORDERED: PT OWN MED DRAWER 7, Y5N ONE ×2 (05:25→20:46)
[2020-02-04 07:58] LABS: BASO % 0.5 % (0-2.0); EOS % 2.3 % (0-4.5); HEMATOCRIT 29.8 % (35.4-49); HEMOGLOBIN 9.7 GM/dL (11.7-16.9); MCH 27.5 pg (25.7-33.7); MCHC 32.4 g/dl (32.0-35.9); MEAN CELL VOLUME 84.8 fl (80-96); MEAN PLT VOLUME 8.5 fl (7.5-11.1); MONO % 8.3 % (3.8-10.2); NEUT % 63.9 % (42.8-82.8); PLATELET COUNT 241 K/MM3 (134-434); RBC 3.52 M/mm3 (4.00-5.60); RDW 16.2 % (11.9-15.9); WHITE BLOOD COUNT 6.2 K/mm3 (4.0-10.0)
[2020-02-04 08:21] LABS: BLOOD UREA NITROGEN 13.4 mg/dL (7-18); CALCIUM 8.3 mg/dL (8.5-10.1); CREATININE 0.9 mg/dL (0.55-1.3); MAGNESIUM 1.8 mg/dL (1.8-2.4); PHOSPHOROUS 3.1 mg/dL (2.5-4.9); POTASSIUM 3.9 mmol/L (3.5-5.1)
--- NOTE | 2020-02-04 08:40 | PN ---
Progress Note (short form) - Note Progress Note: 69yo M s/p ex-lap for acute abdomen with lysis of adhesions, POD 2. Pt seen and examined at bedside. Pt denies fever, chills, n/v. Pt states abd pain is improved from yesterday. Denies BM or flatus, NGT in place. Vital Signs Temp 98.7 F 02/04/20 05:38 Pulse 74 02/04/20 05:38 Resp 20 02/04/20 05:38 BP 95/64 02/04/20 05:38 Pulse Ox 96 02/04/20 05:38 Intake & Output 02/03/20 02/03/20 02/04/20 11:59 23:59 11:59 Intake Total 1000 1425 Output Total 700 330 250 Balance 300 1095 -250 Intake: IV 750 1425 Lactated Ringers Solution 300 1,000 ml @ 100 mls/hr IV ASDIR [facility] Rx#: [id number] Lactated Ringers Solution 750 1125 1,000 ml @ 125 mls/hr IV ASDIR [facility] Rx#: [id number] IVPB 250 Oral 0 Output: Gastric Drainage 300 Urine 700 30 250 Sandhu 700 Void 0 30 250 Other: Voiding Method Indwelling Catheter Urinal Bowel Movement No No Weight Measurement Method Standing Scale CBC, BMP 02/04/20 07:21 02/04/20 07:21 PE: Gen: A&O X3 Head: NGT in place with bilious drainage Resp: breathing comfortably Abd: soft, nondistended, mild tenderness with palpation, incision dressing clean. Ext: no edema Problem List - Problems (1) SBO (small bowel obstruction) Assessment/Plan: Plan -abd x-ray this am -keep NPO, IVF, NGT -oob/ambulate -d/c sandhu -dvt ppx Code(s): K56.609 - UNSP INTESTNL OBST, UNSP TO PARTIAL VERSUS COMPLETE OBST
[2020-02-04] MEDS: KETOROLAC TROMETHAMINE 15 MG/ML VIAL IVPUSH PRN (09:49)
[2020-02-04] MEDS: PANTOPRAZOLE SODIUM 40 MG VIAL IVPUSH SCH (09:49)
[2020-02-04] MEDS: HEPARIN NA (PORCINE) 5,000 UNITS/ML 1ML VIAL SQ SCH ×2 (09:49→21:04)
[2020-02-04] MEDS: BUDESONIDE/FORMETEROL FUMARATE 80/4.5 mcg INHALER IH SCH ×2 (09:49→21:07)
--- NOTE | 2020-02-04 13:55 | PN ---
Teaching Attending Note Name of Resident: Jan Deng ATTENDING PHYSICIAN STATEMENT I saw and evaluated the patient. I reviewed the resident's note and discussed the case with the resident. I agree with the resident's findings and plan as documented. SUBJECTIVE: Seen and examined at bedside. POD 1 status post ex lap for acute abdomen with l ysis of adhesions. Patient reports significant abdominal pain mildly improved from yesterday, denies BM or flatus, NGT in place. OBJECTIVE Last Vital Signs Temp Pulse Resp BP Pulse Ox 98.3 F 63 18 104/68 9 L 02/04/20 09:18 02/04/20 09:18 02/04/20 09:18 02/04/20 09:18 02/04/20 09:18 PE: Per resident note Labs/Imaging: reviewed ASSESSMENT/PLAN 69-year-old male with a past medical history of COPD, hep C, multiple abdominal surgeries and recurrent SBO's presented abdominal pain nausea and vomiting found to have SBO. Patient was sent for emergent laparotomy due to concern of pneumoperitoneum. #Small bowel obstruction Status post ex lap postop day 1 Surgery on board: Appreciate recommendations NGT in place Has not passed flatus or had bowel movement Painnausea control Fluids #COPD on home O2 Continue home Advair Duo nebs O2 as needed
[2020-02-04] MEDS: AMINO ACIDS 4.25%/D5W 1,000 ML IV SCH (15:24)
[2020-02-04] MEDS: DOXEPIN HCL 25 MG CAPSULE PO SCH (21:04)
[2020-02-04] MEDS: MIRTAZAPINE 15 MG TABLET (FP) PO SCH (21:04)
--- NOTE | 2020-02-04 21:18 | PN ---
Physical Exam: SUBJECTIVE: Patient seen and examined at bedside. No acute events overnight. Denies any flatus. OBJECTIVE: Vital Signs Period Temp Pulse Resp BP Sys/Monsalve Pulse Ox Last 24 Hr 98.1 F-98.8 F 61-74 16-20 93-132/63-78 9-100 GENERAL: No acute distress HEAD: Normal with no signs of trauma. NGT in place to suction EYES: EOMI Sclera Clear NECK: Trachea midline, full range of motion, supple. LUNGS: Decreased BS at bases HEART: RRR S1S2 ABDOMEN: Surgical bandage mid abdomen. Diffusely tender to light touch. BS+. EXTREMITIES: No CCE PSYCH: Normal mood, normal affect. Laboratory Results - last 24 hr 02/04/20 02/04/20 07:21 07:21 WBC 6.2 RBC 3.52 L Hgb 9.7 L Hct 29.8 L MCV 84.8 MCH 27.5 MCHC 32.4 RDW 16.2 H Plt Count 241 MPV 8.5 Absolute Neuts (auto) 4.0 Neutrophils % 63.9 D Lymphocytes % 25.0 D Monocytes % 8.3 Eosinophils % 2.3 D Basophils % 0.5 D Nucleated RBC % 0 Sodium 138 Potassium 3.9 Chloride 102 Carbon Dioxide 30 Anion Gap 6 L BUN 13.4 Creatinine 0.9 Est GFR (CKD-EPI)AfAm 99.24 Est GFR (CKD-EPI)NonAf 85.63 Random Glucose 70 L Calcium 8.3 L Phosphorus 3.1 Magnesium 1.8 Active Medications Generic Name Dose Route Start Last Admin Trade Name Freq PRN Reason Stop Dose Admin Budesonide/Formoterol Fumarate 2 puff 02/02/20 22:00 02/04/20 21:07 Symbicort 80/4.5mcg - IH 2 puff BID [facility] Administration Chlorhexidine Gluconate 1 applic 02/03/20 22:00 Hibiclens For Decolonization - TP HS [facility] Doxepin HCl 75 mg 02/02/20 22:00 02/04/20 21:04 Sinequan - PO Not Given HS [facility] Heparin Sodium (Porcine) 5,000 unit 02/02/20 22:00 02/04/20 21:04 Heparin - SQ 5,000 unit BID [facility] Administration Amino Acids 1,000 mls @ 84 mls/hr 02/04/20 14:00 02/04/20 15:24 Clinimix - IV 84 mls/hr Q12H [facility] Administration Mirtazapine 30 mg 02/03/20 22:00 02/04/20 21:04 Remeron - PO Not Given HS [facility] Morphine Sulfate 6 mg 02/03/20 14:47 02/04/20 19:11 Morphine Sulfate IVPUSH 6 mg Q4H PRN Administration PAIN LEVEL 6-10 Mupirocin 1 applic 02/03/20 22:00 Bactroban Ointment (For Decolonization) - NS 02/07/20 21:59 BID [facility] Non-Formulary Medication 4 gm 02/02/20 22:00 Ipratropium/Albuterol Sulfate IH BID [facility] Pantoprazole Sodium 40 mg 02/04/20 10:00 02/04/20 09:49 Protonix Iv IVPUSH 40 mg DAILY [facility] Administration Promethazine HCl 12.5 mg 02/03/20 15:19 Phenergan Injection - IVPUSH Q6H PRN NAUSEA-FOR RESCUE AFTER 15 MIN ASSESSMENT/PLAN: 69-year-old male with a past medical history of COPD, hep C, multiple abdominal surgeries and recurrent SBO's presented abdominal pain nausea and vomiting found to have SBO. Patient was sent for emergent laparotomy due to concern of pneumoperitoneum. #Small bowel obstruction POD#[address] Brendon Snyder Surgery on board- Dr Snyder continue NGT decompression until return of bowel function and IVF KUB today--> No Bowel obstruction OOB, IS, GI, & DVT prophylaxis #COPD on home O2 Continue home Advair Duo nebs O2 as needed #FEN LR@100 Monitor Electrolytes NPO #DVT ppx: Hep SQ TID #Dispo Med Surg Visit type - Emergency Visit Emergency Visit: Yes ED Registration Date: 02/02/20 Care time: The patient presented to the Emergency Department on the above date and was hospitalized for further evaluation of their emergent condition. - New Patient This patient is new to me today: No - Critical Care Critical Care patient: No - Discharge Referral Referred to [facility] Med P.C.: No - Medication Review Med list reviewed for High Risk Meds patients 65 and older: Yes ATTENDING PHYSICIAN STATEMENT I saw and evaluated the patient. I reviewed the resident's note and discussed the case with the resident. I agree with the resident's findings and plan as documented. SUBJECTIVE: OBJECTIVE: ASSESSMENT AND PLAN:
[2020-02-05] MEDS ORDERED: PT OWN MED DRAWER 7, Y5N ONE ×2 (01:31→21:36)
[2020-02-05] MEDS: morphine SULFATE 4 MG/ML VIAL IVPUSH PRN (01:45)
[2020-02-05] MEDS: AMINO ACIDS 4.25%/D5W 1,000 ML IV SCH ×2 (04:04→14:46)
[2020-02-05 07:31] LABS: BASO % 0.8 % (0-2.0); EOS % 3.1 % (0-4.5); HEMATOCRIT 32.4 % (35.4-49); HEMOGLOBIN 10.9 GM/dL (11.7-16.9); MCH 28.4 pg (25.7-33.7); MCHC 33.6 g/dl (32.0-35.9); MEAN CELL VOLUME 84.5 fl (80-96); MEAN PLT VOLUME 7.9 fl (7.5-11.1); MONO % 10.9 % (3.8-10.2); NEUT % 59.2 % (42.8-82.8); PLATELET COUNT 261 K/MM3 (134-434); RBC 3.83 M/mm3 (4.00-5.60)
[2020-02-05] MEDS: MUPIROCIN 2% TOPICAL OINTMENT FOR DECOLONIZATION NS SCH (08:00)
[2020-02-05] MEDS: CHLORHEXIDINE GLUCONATE 4% CLEANSER FOR DECOLONIZATION TP SCH (08:00)
[2020-02-05 08:01] LABS: BLOOD UREA NITROGEN 15.1 mg/dL (7-18); CALCIUM 8.6 mg/dL (8.5-10.1); CREATININE 0.7 mg/dL (0.55-1.3); MAGNESIUM 2.1 mg/dL (1.8-2.4); PHOSPHOROUS 2.6 mg/dL (2.5-4.9); POTASSIUM 3.8 mmol/L (3.5-5.1)
--- NOTE | 2020-02-05 09:05 | PN ---
Physical Exam: SUBJECTIVE: Patient seen and examined No overnight events Denies: passing flatus, no BM, no N/V reports abdominal soreness, urinating small frequent events ambulated yesterday OBJECTIVE: Vital Signs Temperature 98.3 F 02/05/20 06:00 Pulse Rate 69 02/05/20 06:00 Respiratory Rate 20 02/05/20 06:00 Blood Pressure 137/69 02/05/20 06:00 O2 Sat by Pulse Oximetry (%) 100 02/05/20 06:00 VSS- afebrile NAD unlabored breathing on RA abd: soft, thin, ND, incisional tenderness, incisions c/d/i with candice ext: warm Laboratory Results - last 24 hr 02/05/20 02/05/20 07:15 07:15 WBC 6.0 RBC 3.83 L Hgb 10.9 L Hct 32.4 L MCV 84.5 MCH 28.4 MCHC 33.6 RDW 16.0 H Plt Count 261 MPV 7.9 Absolute Neuts (auto) 3.6 Neutrophils % 59.2 Lymphocytes % 26.0 Monocytes % 10.9 H Eosinophils % 3.1 Basophils % 0.8 Nucleated RBC % 0 Sodium 138 Potassium 3.8 Chloride 103 Carbon Dioxide 30 Anion Gap 5 L BUN 15.1 Creatinine 0.7 Est GFR (CKD-EPI)AfAm 110.04 Est GFR (CKD-EPI)NonAf 94.95 Random Glucose 98 Calcium 8.6 Phosphorus 2.6 Magnesium 2.1 Active Medications Generic Name Dose Route Start Last Admin Trade Name Freq PRN Reason Stop Dose Admin Budesonide/Formoterol Fumarate 2 puff 02/02/20 22:00 02/04/20 21:07 Symbicort 80/4.5mcg - IH 2 puff BID [facility] Administration Doxepin HCl 75 mg 02/02/20 22:00 02/04/20 21:04 Sinequan - PO Not Given HS [facility]ILY Heparin Sodium (Porcine) 5,000 unit 02/02/20 22:00 02/04/20 21:04 Heparin - SQ 5,000 unit BID [facility] Administration Amino Acids 1,000 mls @ 84 mls/hr 02/04/20 14:00 02/05/20 04:04 Clinimix - IV 84 mls/hr Q12H [facility] Administration Mirtazapine 30 mg 02/03/20 22:00 02/04/20 21:04 Remeron - PO Not Given HS [facility] Morphine Sulfate 6 mg 02/03/20 14:47 02/05/20 01:45 Morphine Sulfate IVPUSH 6 mg Q4H PRN Administration PAIN LEVEL 6-10 Non-Formulary Medication 4 gm 02/02/20 22:00 Ipratropium/Albuterol Sulfate IH BID [facility] Pantoprazole Sodium 40 mg 02/04/20 10:00 02/04/20 09:49 Protonix Iv IVPUSH 40 mg DAILY [facility] Administration Promethazine HCl 12.5 mg 02/03/20 15:19 Phenergan Injection - IVPUSH Q6H PRN NAUSEA-FOR RESCUE AFTER 15 MIN ASSESSMENT/PLAN: 69yoM hx of COPD, hep C, multiple abdominal surgeries and recurrent SBOs found to have SBO and pneumoperitoneum Now POD 3 s/p ex lap, NHI, enterorrhaphy (02/03/20) with Dr. Snyder with the following findings high grade SBO from sb adhesions to the posterior abdominal wall, no hollow viscus perforation. Diet: NPO/IVFs, PPN Maintain NGT to LWS PPI Monitor I&Os awaiting bowel function- will continue to monitor labs: WBC 6- no leukocytosis, electrolytes wnl, H&H stable bladder scan-r/o urinary retention, pt straight cath with 500cc output, will repeat and consider possible sandhu pain control PRN- avoid narcotics DVT ppx PT consult d/w Dr. Snyder
[2020-02-05] MEDS ORDERED: morphine SULFATE 4 MG/ML VIAL IVPUSH PRN (09:09)
[2020-02-05] MEDS: PANTOPRAZOLE SODIUM 40 MG VIAL IVPUSH SCH (09:53)
[2020-02-05] MEDS: HEPARIN NA (PORCINE) 5,000 UNITS/ML 1ML VIAL SQ SCH ×2 (09:53→21:48)
[2020-02-05] MEDS: BUDESONIDE/FORMETEROL FUMARATE 80/4.5 mcg INHALER IH SCH ×2 (09:54→21:49)
[2020-02-05] MEDS ORDERED: KETOROLAC TROMETHAMINE 15 MG/ML VIAL IVPUSH ONE (12:35)
[2020-02-05] MEDS ORDERED: ACETAMINOPHEN 1000 MG/100 ML VIAL (NON FORMULARY) IVPB PRN (12:41)
[2020-02-05] MEDS: PATIENT'S OWN MEDICATION (NON-FORMULARY) (Ipratropium/Albuterol Sulfate 4 GM) IH SCH (13:34)
[2020-02-05] MEDS: KETOROLAC TROMETHAMINE 15 MG/ML VIAL IVPUSH SCH ×2 (13:39→21:49)
--- NOTE | 2020-02-05 14:12 | PN ---
Teaching Attending Note Name of Resident: Jan Deng ATTENDING PHYSICIAN STATEMENT I saw and evaluated the patient. I reviewed the resident's note and discussed the case with the resident. I agree with the resident's findings and plan as documented. SUBJECTIVE: Seen and examined at bedside. POD 2 status post ex lap for acute abdomen with l ysis of adhesions. Patient with significant abdominal tenderness and guarding this morning. Surgical team notified OBJECTIVE Last Vital Signs Temp Pulse Resp BP Pulse Ox 98.3 F 69 20 137/69 100 02/05/20 06:00 02/05/20 06:00 02/05/20 06:00 02/05/20 06:00 02/05/20 06:00 PE: Per resident note Labs/Imaging: reviewed ASSESSMENT/PLAN 69-year-old male with a past medical history of COPD, hep C, multiple abdominal surgeries and recurrent SBO's presented abdominal pain nausea and vomiting found to have SBO. Patient was sent for emergent laparotomy due to concern of pneumoperitoneum. #Small bowel obstruction Status post ex lap postop day 2 Surgery on board: Appreciate recommendations NGT in place Has not passed flatus or had bowel movement Fluids #increased abd pain concern for acute abdomen: surgical team notified -retaining urine, s/p straight cath, f/u for possible urinary retention -pain regimen increased by surgery -surgery aware, will monitor #COPD on home O2 Continue home Advair Duo nebs O2 as needed #severe protein calorie malnutrition
[2020-02-05] MEDS: ACETAMINOPHEN 1000 MG/100 ML VIAL (NON FORMULARY) IVPB PRN (14:45)
[2020-02-05] MEDS ORDERED: MINERAL OIL ENEMA 133 ML ENEMA PR ONE (17:46)
--- NOTE | 2020-02-05 17:50 | PN ---
Progress Note (short form) - Note Progress Note: Patient with significant abdominal pain No flatus or BM Af, VSS Abd: flat with diffuse tenderness NGT drainage minimal A/P: post-op ilues d/c morphine ambulate with assistance fleet enema Problem List - Problems (1) Pneumoperitoneum Code(s): K66.8 - OTHER SPECIFIED DISORDERS OF PERITONEUM (2) SBO (small bowel obstruction) Code(s): K56.609 - UNSP INTESTNL OBST, UNSP TO PARTIAL VERSUS COMPLETE OBST
--- NOTE | 2020-02-05 20:11 | PN ---
Physical Exam: SUBJECTIVE: Patient seen and examined at bedside. Still has not passed flatus as of this am. OBJECTIVE: Vital Signs Period Temp Pulse Resp BP Sys/Monsalve Pulse Ox Last 24 Hr 98.1 F-98.8 F 61-70 20-20 120-137/69-80 100-100 GENERAL: Mild distress due to abdominal pain HEAD: Normal with no signs of trauma. NGT in place to suction EYES: EOMI Sclera Clear NECK: Trachea midline, full range of motion, supple. LUNGS: Decreased BS at bases HEART: RRR S1S2 No MRG ABDOMEN: Surgical bandage mid abdomen. Diffusely tender to light touch. Hypoactive BS EXTREMITIES: No CCE PSYCH: Normal mood, normal affect. Laboratory Results - last 24 hr 02/05/20 02/05/20 07:15 07:15 WBC 6.0 RBC 3.83 L Hgb 10.9 L Hct 32.4 L MCV 84.5 MCH 28.4 MCHC 33.6 RDW 16.0 H Plt Count 261 MPV 7.9 Absolute Neuts (auto) 3.6 Neutrophils % 59.2 Lymphocytes % 26.0 Monocytes % 10.9 H Eosinophils % 3.1 Basophils % 0.8 Nucleated RBC % 0 Sodium 138 Potassium 3.8 Chloride 103 Carbon Dioxide 30 Anion Gap 5 L BUN 15.1 Creatinine 0.7 Est GFR (CKD-EPI)AfAm 110.04 Est GFR (CKD-EPI)NonAf 94.95 Random Glucose 98 Calcium 8.6 Phosphorus 2.6 Magnesium 2.1 Active Medications Generic Name Dose Route Start Last Admin Trade Name Freq PRN Reason Stop Dose Admin Acetaminophen 700 mg 02/05/20 13:26 02/05/20 14:45 Ofirmev Injection - IVPB 700 mg Q6H PRN Administration PAIN LEVEL 1-5 Albuterol/Ipratropium 1 amp 02/05/20 20:00 Duoneb - NEB RQID EMILY Budesonide/Formoterol Fumarate 2 puff 02/02/20 22:00 02/05/20 09:54 Symbicort 80/4.5mcg - IH 2 puff BID EMILY Administration Doxepin HCl 75 mg 02/02/20 22:00 02/04/20 21:04 Sinequan - PO Not Given HS EMILY Heparin Sodium (Porcine) 5,000 unit 02/02/20 22:00 02/05/20 09:53 Heparin - SQ 5,000 unit BID EMILY Administration Amino Acids 1,000 mls @ 84 mls/hr 02/04/20 14:00 02/05/20 14:46 Clinimix - IV 84 mls/hr Q12H EMILY Administration Ketorolac Tromethamine 15 mg 02/05/20 13:30 02/05/20 13:39 Toradol Injection - IVPUSH 02/06/20 05:31 15 mg Q8H EMILY Administration Mirtazapine 30 mg 02/03/20 22:00 02/04/20 21:04 Remeron - PO Not Given HS EMILY Pantoprazole Sodium 40 mg 02/04/20 10:00 02/05/20 09:53 Protonix Iv IVPUSH 40 mg DAILY EMILY Administration Promethazine HCl 12.5 mg 02/03/20 15:19 Phenergan Injection - IVPUSH Q6H PRN NAUSEA-FOR RESCUE AFTER 15 MIN ASSESSMENT/PLAN: 69-year-old male with a past medical history of COPD, hep C, multiple abdominal surgeries and recurrent SBO's presented abdominal pain nausea and vomiting found to have SBO. Patient was sent for emergent laparotomy due to concern of pneumoperitoneum. #Small bowel obstruction POD#[address] Brendon Snyder -Post op Ileus. Will d/c morphine, give fleet enema, encourage ambulation. Surgery on board- Dr Snyder. continue NGT decompression until return of bowel function and IVF -KUB 02/03--> No Bowel obstruction -Bladder scan-r/o urinary retention, pt straight cath with 500cc output. Continue to monitor. May need sandhu. -OOB, IS, GI, & DVT prophylaxis #COPD on home O2 Continue home Advair Duo nebs O2 as needed #FEN LR@100 Monitor Electrolytes NPO #DVT ppx: Hep SQ TID #Dispo Med Surg Visit type - Emergency Visit Emergency Visit: Yes ED Registration Date: 02/02/20 Care time: The patient presented to the Emergency Department on the above date and was hospitalized for further evaluation of their emergent condition. - New Patient This patient is new to me today: No - Critical Care Critical Care patient: No - Discharge Referral Referred to [facility] No - Medication Review Med list reviewed for High Risk Meds patients 65 and older: Yes ATTENDING PHYSICIAN STATEMENT I saw and evaluated the patient. I reviewed the resident's note and discussed the case with the resident. I agree with the resident's findings and plan as documented. SUBJECTIVE: OBJECTIVE: ASSESSMENT AND PLAN:
[2020-02-05] MEDS: DOXEPIN HCL 25 MG CAPSULE PO SCH (21:48)
[2020-02-05] MEDS: MIRTAZAPINE 15 MG TABLET (FP) PO SCH (21:48)
[2020-02-06] MEDS: ALBUTEROL SO4 2.5/IPRATROPIUM 0.5 INH SOL 3 ML VIAL.NEB. NEB SCH ×5 (00:10→20:58)
[2020-02-06] MEDS: AMINO ACIDS 4.25%/D5W 1,000 ML IV SCH ×2 (02:06→14:26)
[2020-02-06] MEDS: KETOROLAC TROMETHAMINE 15 MG/ML VIAL IVPUSH SCH (05:29)
[2020-02-06 07:38] LABS: HEMATOCRIT 32.5 % (35.4-49); HEMOGLOBIN 10.8 GM/dL (11.7-16.9); MCH 28.1 pg (25.7-33.7); MCHC 33.1 g/dl (32.0-35.9); MEAN CELL VOLUME 84.6 fl (80-96); MEAN PLT VOLUME 8.1 fl (7.5-11.1); PLATELET COUNT 267 K/MM3 (134-434); RBC 3.84 M/mm3 (4.00-5.60); RDW 15.8 % (11.9-15.9); WHITE BLOOD COUNT 4.7 K/mm3 (4.0-10.0)
[2020-02-06 08:03] LABS: CALCIUM 8.4 mg/dL (8.5-10.1); CREATININE 0.7 mg/dL (0.55-1.3); PHOSPHOROUS 2.7 mg/dL (2.5-4.9); POTASSIUM 3.5 mmol/L (3.5-5.1)
[2020-02-06] MEDS: PANTOPRAZOLE SODIUM 40 MG VIAL IVPUSH SCH (09:50)
[2020-02-06] MEDS: HEPARIN NA (PORCINE) 5,000 UNITS/ML 1ML VIAL SQ SCH ×2 (09:50→21:57)
[2020-02-06] MEDS: ACETAMINOPHEN 1000 MG/100 ML VIAL (NON FORMULARY) IVPB PRN ×2 (09:50→17:42)
[2020-02-06] MEDS: BUDESONIDE/FORMETEROL FUMARATE 80/4.5 mcg INHALER IH SCH ×2 (09:51→21:59)
--- NOTE | 2020-02-06 09:55 | PN ---
Progress Note (short form) - Note Progress Note: Surgery: pt without any nausea. No flatus or BM. Gave fleets enema yesterday. Replaced sandhu for urinary retention Vital Signs Period Temp Pulse Resp BP Sys/Monsalve Pulse Ox Last 24 Hr 98.1 F-98.4 F 61-70 20-20 110-120/72-80 100-100 NGT: 700 ml Sandhu and voiding-1950 GEN: A&0x3 ABD: soft, flat, inc tenderness. Inc c/d/i with candice LE: no calf tenderness or swelling noted b/l CBC, BMP 02/06/20 07:03 02/06/20 07:03 Laboratory Tests 02/06/20 07:03 Phosphorus 2.7 Magnesium 2.0 A/p: 69 yo male s/p ex lap with NHI/enterorraphy, POD#4 D/w Dr MORROW, pt with ileus Recommend to continue npo/ngt awaiting bowel function Monitor electrolytes daily Hold narcotics IV toradol/tylenol for pain OOB ambuate/PT orderd Dulcolax suppository today
[2020-02-06] MEDS ORDERED: BISACODYL 10 MG SUPP.RECT PR ONE (10:07)
--- NOTE | 2020-02-06 14:16 | PN ---
Teaching Attending Note Name of Resident: Jan Deng ATTENDING PHYSICIAN STATEMENT I saw and evaluated the patient. I reviewed the resident's note and discussed the case with the resident. I agree with the resident's findings and plan as documented. SUBJECTIVE: Seen and examined at bedside. pain improved s/p sandhu catheter. Pt has not pas sed gas despite enema overnight. Has ileus OBJECTIVE Last Vital Signs Temp Pulse Resp BP Pulse Ox 98.3 F 61 20 117/76 100 02/06/20 06:00 02/06/20 06:00 02/06/20 06:00 02/06/20 06:00 02/06/20 09:00 PE: Per resident note Labs/Imaging: reviewed ASSESSMENT/PLAN 69-year-old male with a past medical history of COPD, hep C, multiple abdominal surgeries and recurrent SBO's presented abdominal pain nausea and vomiting found to have SBO. Patient was sent for emergent laparotomy due to concern of pneumoperitoneum. #Small bowel obstruction w/post op illeus Status post ex lap postop day 3 Surgery on board: Appreciate recommendations NGT in place Has not passed flatus or had bowel movement Fluids #urinary retention -sandhu in place -ToV on sunday #increased abd pain concern for acute abdomen: surgical team notified -retaining urine, s/p straight cath, f/u for possible urinary retention -pain regimen increased by surgery -surgery aware, will monitor #COPD on home O2 Continue home Advair Duo nebs O2 as needed #severe protein calorie malnutrition
[2020-02-06] MEDS: KETOROLAC TROMETHAMINE 15 MG/ML VIAL IVPUSH PRN ×2 (14:32→21:58)
--- NOTE | 2020-02-06 17:28 | PN ---
Physical Exam: SUBJECTIVE: Patient seen and examined at bedside this am. Abdomen less tender to palpation today. No acute events overnight. Patient passed flatus this afternoon. OBJECTIVE: Vital Signs Period Temp Pulse Resp BP Sys/Monsalve Pulse Ox Last 24 Hr 98.1 F-98.4 F 61-67 16-20 104-119/72-77 100-100 GENERAL: NAD HEAD: Normal with no signs of trauma. NGT in place to suction (this am) EYES: EOMI Sclera Clear NECK: Trachea midline, full range of motion, supple. LUNGS: Decreased BS at bases HEART: RRR S1S2 No MRG ABDOMEN: Surgical bandage mid abdomen. BS +. No guarding or rigidity. EXTREMITIES: No CCE PSYCH: Normal mood, normal affect. Laboratory Results - last 24 hr 02/06/20 02/06/20 07:03 07:03 WBC 4.7 RBC 3.84 L Hgb 10.8 L Hct 32.5 L MCV 84.6 MCH 28.1 MCHC 33.1 RDW 15.8 Plt Count 267 MPV 8.1 Sodium 140 Potassium 3.5 Chloride 105 Carbon Dioxide 29 Anion Gap 6 L BUN 20.0 H Creatinine 0.7 Est GFR (CKD-EPI)AfAm 110.04 Est GFR (CKD-EPI)NonAf 94.95 Random Glucose 104 Calcium 8.4 L Phosphorus 2.7 Magnesium 2.0 Active Medications Generic Name Dose Route Start Last Admin Trade Name Freq PRN Reason Stop Dose Admin Acetaminophen 700 mg 02/05/20 13:26 02/06/20 09:50 Ofirmev Injection - IVPB 700 mg Q6H PRN Administration PAIN LEVEL 1-5 Albuterol/Ipratropium 1 amp 02/05/20 20:00 02/06/20 15:05 Duoneb - NEB 1 amp RQID EMILY Administration Budesonide/Formoterol Fumarate 2 puff 02/02/20 22:00 02/06/20 09:51 Symbicort 80/4.5mcg - IH 2 puff BID EMILY Administration Doxepin HCl 75 mg 02/02/20 22:00 02/05/20 21:48 Sinequan - PO Not Given HS EMILY Heparin Sodium (Porcine) 5,000 unit 02/02/20 22:00 02/06/20 09:50 Heparin - SQ 5,000 unit BID EMILY Administration Amino Acids 1,000 mls @ 84 mls/hr 02/04/20 14:00 02/06/20 14:26 Clinimix - IV 84 mls/hr Q12H EMILY Administration Ketorolac Tromethamine 15 mg 02/06/20 13:09 02/06/20 14:32 Toradol Injection - IVPUSH 15 mg Q8H PRN Administration PAIN LEVEL 1 - 3 Mirtazapine 30 mg 02/03/20 22:00 02/05/20 21:48 Remeron - PO Not Given HS EMILY Pantoprazole Sodium 40 mg 02/04/20 10:00 02/06/20 09:50 Protonix Iv IVPUSH 40 mg DAILY EMILY Administration Promethazine HCl 12.5 mg 02/03/20 15:19 Phenergan Injection - IVPUSH Q6H PRN NAUSEA-FOR RESCUE AFTER 15 MIN ASSESSMENT/PLAN: 69-year-old male with a past medical history of COPD, hep C, multiple abdominal surgeries and recurrent SBO's presented abdominal pain nausea and vomiting found to have SBO. Patient was sent for emergent laparotomy due to concern of pneumoperitoneum. #Small bowel obstruction POD#[address] Brendon Snyder -Post op Ileus. Pain control with Toradol/Ofirmev Surgery on board- Dr Snyder. continue NGT decompression until return of bowel function and IVF -KUB 02/03--> No Bowel obstruction -Bladder scan-r/o urinary retention, pt straight cath with 500cc output. Courtney inserted. -OOB, IS, GI, & DVT prophylaxis #COPD on home O2 Continue home Advair Duo nebs O2 as needed #FEN LR@100 Monitor Electrolytes Diet recs per Surgery #DVT ppx: Hep SQ TID #Dispo Med Surg Visit type - Emergency Visit Emergency Visit: Yes ED Registration Date: 02/02/20 Care time: The patient presented to the Emergency Department on the above date and was hospitalized for further evaluation of their emergent condition. - New Patient This patient is new to me today: No - Critical Care Critical Care patient: No - Discharge Referral Referred to [facility] No - Medication Review Med list reviewed for High Risk Meds patients 65 and older: Yes ATTENDING PHYSICIAN STATEMENT I saw and evaluated the patient. I reviewed the resident's note and discussed the case with the resident. I agree with the resident's findings and plan as documented. SUBJECTIVE: OBJECTIVE: ASSESSMENT AND PLAN:
[2020-02-06] MEDS ORDERED: PT OWN MED DRAWER 7, Y5N ONE (21:54)
[2020-02-06] MEDS: DOXEPIN HCL 25 MG CAPSULE PO SCH (21:58)
[2020-02-06] MEDS: MIRTAZAPINE 15 MG TABLET (FP) PO SCH (21:58)
[2020-02-07] MEDS: AMINO ACIDS 4.25%/D5W 1,000 ML IV SCH ×3 (04:42→18:21)
[2020-02-07] MEDS: ALBUTEROL SO4 2.5/IPRATROPIUM 0.5 INH SOL 3 ML VIAL.NEB. NEB SCH ×4 (07:51→20:39)
[2020-02-07 08:12] LABS: HEMATOCRIT 33.3 % (35.4-49); MCH 27.7 pg (25.7-33.7); MCHC 33.1 g/dl (32.0-35.9); MEAN CELL VOLUME 83.7 fl (80-96); MEAN PLT VOLUME 8.4 fl (7.5-11.1); PLATELET COUNT 311 K/MM3 (134-434); RBC 3.99 M/mm3 (4.00-5.60); RDW 15.6 % (11.9-15.9); WHITE BLOOD COUNT 4.6 K/mm3 (4.0-10.0)
[2020-02-07 08:51] LABS: BLOOD UREA NITROGEN 21.5 mg/dL (7-18); CALCIUM 8.5 mg/dL (8.5-10.1); CREATININE 0.7 mg/dL (0.55-1.3); MAGNESIUM 1.9 mg/dL (1.8-2.4); PHOSPHOROUS 2.2 mg/dL (2.5-4.9); POTASSIUM 3.3 mmol/L (3.5-5.1)
[2020-02-07] MEDS: PANTOPRAZOLE SODIUM 40 MG VIAL IVPUSH SCH (10:25)
[2020-02-07] MEDS: HEPARIN NA (PORCINE) 5,000 UNITS/ML 1ML VIAL SQ SCH ×2 (10:25→22:22)
[2020-02-07] MEDS: KETOROLAC TROMETHAMINE 15 MG/ML VIAL IVPUSH PRN ×2 (11:00→19:08)
[2020-02-07] MEDS: BUDESONIDE/FORMETEROL FUMARATE 80/4.5 mcg INHALER IH SCH ×2 (11:13→22:30)
[2020-02-07] MEDS ORDERED: POTASSIUM CHLORIDE TABS 20 MEQ TABLET.ER (FP) PO ONE (11:41)
--- NOTE | 2020-02-07 11:53 | PN ---
Progress Note, Physician Chief Complaint: s/p exploratory laparotomy, NHI POD # 5 History of Present Illness: Patient passed flatus and had bm's mild inicisional pain - Current Medication List Current Medications: Active Medications Albuterol/Ipratropium (Duoneb -) 1 amp NEB RQID [facility] Last Admin: 02/07/20 11:15 Dose: 1 amp Documented by: Budesonide/Formoterol Fumarate (Symbicort 80/4.5mcg -) 2 puff IH BID [facility] Last Admin: 02/07/20 11:13 Dose: 2 puff Documented by: Doxepin HCl (Sinequan -) 75 mg PO HS [facility] Last Admin: 02/06/20 21:58 Dose: Not Given Documented by: Heparin Sodium (Porcine) (Heparin -) 5,000 unit SQ BID [facility] Last Admin: 02/07/20 10:25 Dose: 5,000 unit Documented by: Amino Acids (Clinimix -) 1,000 mls @ 84 mls/hr IV Q12H [facility] Last Admin: 02/07/20 04:42 Dose: 84 mls/hr Documented by: Ketorolac Tromethamine (Toradol Injection -) 15 mg IVPUSH Q8H PRN PRN Reason: PAIN LEVEL 1 - 3 Last Admin: 02/07/20 11:00 Dose: 15 mg Documented by: Mirtazapine (Remeron -) 30 mg PO [facility] Last Admin: 02/06/20 21:58 Dose: Not Given Documented by: Pantoprazole Sodium (Protonix Iv) 40 mg IVPUSH DAILY [facility] Last Admin: 02/07/20 10:25 Dose: 40 mg Documented by: Promethazine HCl (Phenergan Injection -) 12.5 mg IVPUSH Q6H PRN PRN Reason: NAUSEA-FOR RESCUE AFTER 15 MIN - Objective Vital Signs: Vital Signs Temperature 98.4 F 02/07/20 06:00 Pulse Rate 78 02/07/20 06:00 Respiratory Rate 20 02/07/20 06:00 Blood Pressure 116/73 02/07/20 06:00 O2 Sat by Pulse Oximetry (%) 97 02/07/20 06:00 Constitutional: Yes: No Distress Gastrointestinal: Yes: Soft, Tenderness (mild incisional tenderness) Labs: CBC, BMP 02/07/20 06:54 02/07/20 06:54 INR, PTT INR 1.09 (0.83-1.09) 02/02/20 10:00 Problem List - Problems (1) Pneumoperitoneum Code(s): K66.8 - OTHER SPECIFIED DISORDERS OF PERITONEUM (2) SBO (small bowel obstruction) Assessment/Plan: resolved post-op ileus May resume diet with clear liquids and advance as tolerated Ambulate, IS, GI, & DVT prophylaxis dc /clinimix when tolerating diet dc planning Code(s): K56.609 - UNSP INTESTNL OBST, UNSP TO PARTIAL VERSUS COMPLETE OBST
[2020-02-07] MEDS ORDERED: PT OWN MED DRAWER 7, Y5N ONE (22:14)
[2020-02-07] MEDS: MIRTAZAPINE 15 MG TABLET (FP) PO SCH (22:22)
[2020-02-07] MEDS: DOXEPIN HCL 25 MG CAPSULE PO SCH (22:23)
--- NOTE | 2020-02-07 22:43 | PN ---
Physical Exam: SUBJECTIVE: Patient seen and examined OBJECTIVE: Vital Signs Period Temp Pulse Resp BP Sys/Monsalve Pulse Ox Last 24 Hr 98 F-98.4 F 78-88 20-20 114-119/66-78 97-98 GENERAL: The patient is awake, alert, and fully oriented, in no acute distress. HEAD: Normal with no signs of trauma. EYES: PERRL, extraocular movements intact, sclera anicteric, conjunctiva clear. No ptosis. ENT: Ears normal, nares patent, oropharynx clear without exudates, moist mucous membranes. NECK: Trachea midline, full range of motion, supple. LUNGS: Breath sounds equal, clear to auscultation bilaterally, no wheezes, no crackles, no accessory muscle use. HEART: Regular rate and rhythm, S1, S2 without murmur, rub or gallop. ABDOMEN: Soft, nontender, nondistended, normoactive bowel sounds, no guarding, no rebound, no hepatosplenomegaly, no masses. EXTREMITIES: 2+ pulses, warm, well-perfused, no edema. NEUROLOGICAL: Cranial nerves II through XII grossly intact. Normal speech, gait not observed. PSYCH: Normal mood, normal affect. SKIN: Warm, dry, normal turgor, no rashes or lesions noted Laboratory Results - last 24 hr 02/07/20 02/07/20 06:54 06:54 WBC 4.6 RBC 3.99 L Hgb 11.0 L Hct 33.3 L MCV 83.7 MCH 27.7 MCHC 33.1 RDW 15.6 Plt Count 311 MPV 8.4 Sodium 140 Potassium 3.3 L Chloride 106 Carbon Dioxide 26 Anion Gap 8 BUN 21.5 H Creatinine 0.7 Est GFR (CKD-EPI)AfAm 110.04 Est GFR (CKD-EPI)NonAf 94.95 Random Glucose 94 Calcium 8.5 Phosphorus 2.2 L Magnesium 1.9 Active Medications Generic Name Dose Route Start Last Admin Trade Name Freq PRN Reason Stop Dose Admin Albuterol/Ipratropium 1 amp 02/05/20 20:00 02/07/20 20:39 Duoneb - NEB 1 amp RQID EMILY Administration Budesonide/Formoterol Fumarate 2 puff 02/02/20 22:00 02/07/20 22:30 Symbicort 80/4.5mcg - IH 2 puff BID EMILY Administration Doxepin HCl 75 mg 02/02/20 22:00 02/07/20 22:23 Sinequan - PO 75 mg HS EMILY Administration Heparin Sodium (Porcine) 5,000 unit 02/02/20 22:00 02/07/20 22:22 Heparin - SQ 5,000 unit BID EMILY Administration Amino Acids 1,000 mls @ 84 mls/hr 02/04/20 14:00 02/07/20 18:21 Clinimix - IV 84 mls/hr Q12H EMILY Administration Ketorolac Tromethamine 15 mg 02/06/20 13:09 02/07/20 19:08 Toradol Injection - IVPUSH 15 mg Q8H PRN Administration PAIN LEVEL 1 - 3 Mirtazapine 30 mg 02/03/20 22:00 02/07/20 22:22 Remeron - PO 30 mg HS EMILY Administration Pantoprazole Sodium 40 mg 02/04/20 10:00 02/07/20 10:25 Protonix Iv IVPUSH 40 mg DAILY EMILY Administration Promethazine HCl 12.5 mg 02/03/20 15:19 Phenergan Injection - IVPUSH Q6H PRN NAUSEA-FOR RESCUE AFTER 15 MIN ASSESSMENT/PLAN:
[2020-02-08] MEDS: KETOROLAC TROMETHAMINE 15 MG/ML VIAL IVPUSH PRN ×2 (05:41→17:43)
[2020-02-08] MEDS: AMINO ACIDS 4.25%/D5W 1,000 ML IV SCH ×2 (05:42→17:39)
[2020-02-08 07:45] LABS: BASO % 0.8 % (0-2.0); EOS % 3.8 % (0-4.5); HEMATOCRIT 30.7 % (35.4-49); HEMOGLOBIN 10.1 GM/dL (11.7-16.9); LYMPH % 34.8 % (8-40); MCH 27.8 pg (25.7-33.7); MEAN CELL VOLUME 84.5 fl (80-96); MEAN PLT VOLUME 7.7 fl (7.5-11.1); MONO % 10.8 % (3.8-10.2); NEUT % 49.8 % (42.8-82.8); PLATELET COUNT 301 K/MM3 (134-434); RBC 3.64 M/mm3 (4.00-5.60); RDW 16.2 % (11.9-15.9); WHITE BLOOD COUNT 4.6 K/mm3 (4.0-10.0)
[2020-02-08 08:01] LABS: ALBUMIN 2.8 g/dl (3.4-5.0); BILIRUBIN,TOTAL 0.4 mg/dL (0.2-1); BLOOD UREA NITROGEN 24.9 mg/dL (7-18); CALCIUM 8.2 mg/dL (8.5-10.1); CREATININE 0.8 mg/dL (0.55-1.3); POTASSIUM 3.4 mmol/L (3.5-5.1); TOT PROT 6.1 g/dl (6.4-8.2)
[2020-02-08] MEDS: ALBUTEROL SO4 2.5/IPRATROPIUM 0.5 INH SOL 3 ML VIAL.NEB. NEB SCH ×4 (08:18→20:08)
[2020-02-08] MEDS: HEPARIN NA (PORCINE) 5,000 UNITS/ML 1ML VIAL SQ SCH ×2 (09:13→21:22)
[2020-02-08] MEDS: PANTOPRAZOLE SODIUM 40 MG VIAL IVPUSH SCH (09:13)
[2020-02-08] MEDS: BUDESONIDE/FORMETEROL FUMARATE 80/4.5 mcg INHALER IH SCH ×2 (09:24→21:21)
[2020-02-08] MEDS ORDERED: POTASSIUM CHLORIDE ORAL LIQUID 20 MEQ/15 ML PO ONE (15:50)
--- NOTE | 2020-02-08 15:56 | PN ---
Progress Note (short form) - Note Progress Note: SUBJECTIVE: Seen and examined at bedside. Tolerating diet. Has some incisional pain. Ketorolac given OBJECTIVE Last Vital Signs Temp Pulse Resp BP Pulse Ox 97.4 F L 117 H 20 108/70 97 02/08/20 15:00 02/08/20 15:00 02/08/20 15:00 02/08/20 15:00 02/08/20 15:00 PE: GEN: NAD HEENT: NC/AT PEARLL RESP: CTAB CARDS: RRR, -MRG ABD: soft, nt/nd +BS EXT: No swelling/Edema Neuro: Non-focal, A&OX3 Labs/Imaging: reviewed ASSESSMENT/PLAN 69-year-old male with a past medical history of COPD, hep C, multiple abdominal surgeries and recurrent SBO's presented abdominal pain nausea and vomiting found to have SBO. Patient was sent for emergent laparotomy due to concern of pneumoperitoneum. #Small bowel obstruction w/post op illeus Status post ex lap postop day 5 Surgery on board: Appreciate recommendations now tolerating diet -likely dc tomorrow #urinary retention -sandhu in place -ToV on sunday #increased abd pain concern for acute abdomen: surgical team notified -retaining urine, s/p straight cath, f/u for possible urinary retention -pain regimen increased by surgery -surgery aware, will monitor #COPD on home O2 Continue home Advair Duo nebs O2 as needed #severe protein calorie malnutrition Visit type - Emergency Visit Emergency Visit: Yes ED Registration Date: 02/02/20 Care time: The patient presented to the Emergency Department on the above date and was hospitalized for further evaluation of their emergent condition. - New Patient This patient is new to me today: No - Critical Care Critical Care patient: No - Medication Review Med list reviewed for High Risk Meds patients 65 and older: Yes
[2020-02-08] MEDS: MIRTAZAPINE 15 MG TABLET (FP) PO SCH (21:22)
[2020-02-08] MEDS: DOXEPIN HCL 25 MG CAPSULE PO SCH (21:22)
--- NOTE | 2020-02-08 21:47 | PN ---
Physical Exam: SUBJECTIVE: Patient seen and examined at bedside, ex-lap for SBO POD#5, will attempt clear diet. VSS. OBJECTIVE: Vital Signs Period Temp Pulse Resp BP Sys/Monsalve Pulse Ox Last 24 Hr 97.4 F-98.5 F 81-117 20-20 100-108/48-71 96-97 GENERAL: AAOx3, thin appearing HEENT NC/AT< EOMI, dry MM LUNGS: CTAB no crackles HEART: Regular rate and rhythm, S1, S2 without murmur, rub or gallop. ABDOMEN: tenderness at incision sites, dressing applied, thin body habitus EXTREMITIES: 2+ pulses, warm, well-perfused, no edema. NEUROLOGICAL: Cranial nerves II through XII grossly intact. Normal speech, gait not observed PSYCH: Normal mood, normal affect. SKIN: Warm, dry, normal turgor, no rashes or lesions noted Laboratory Results - last 24 hr 02/08/20 02/08/20 07:19 07:19 WBC 4.6 RBC 3.64 L Hgb 10.1 L Hct 30.7 L MCV 84.5 MCH 27.8 MCHC 33.0 RDW 16.2 H Plt Count 301 MPV 7.7 Absolute Neuts (auto) 2.3 Neutrophils % 49.8 Lymphocytes % 34.8 D Monocytes % 10.8 H Eosinophils % 3.8 Basophils % 0.8 Nucleated RBC % 0 Sodium 142 Potassium 3.4 L Chloride 111 H Carbon Dioxide 26 Anion Gap 4 L BUN 24.9 H Creatinine 0.8 Est GFR (CKD-EPI)AfAm 104.17 Est GFR (CKD-EPI)NonAf 89.88 Random Glucose 99 Calcium 8.2 L Total Bilirubin 0.4 AST 14 L ALT 14 Alkaline Phosphatase 33 L Total Protein 6.1 L Albumin 2.8 L Active Medications Generic Name Dose Route Start Last Admin Trade Name Freq PRN Reason Stop Dose Admin Albuterol/Ipratropium 1 amp 02/05/20 20:00 02/08/20 20:08 Duoneb - NEB 1 amp RQID EMILY Administration Budesonide/Formoterol Fumarate 2 puff 02/02/20 22:00 02/08/20 21:21 Symbicort 80/4.5mcg - IH 2 puff BID EMILY Administration Doxepin HCl 75 mg 02/02/20 22:00 02/08/20 21:22 Sinequan - PO 75 mg HS EMILY Administration Heparin Sodium (Porcine) 5,000 unit 02/02/20 22:00 02/08/20 21:22 Heparin - SQ 5,000 unit BID EMILY Administration Amino Acids 1,000 mls @ 84 mls/hr 02/04/20 14:00 02/08/20 17:39 Clinimix - IV 84 mls/hr Q12H EMILY Administration Ketorolac Tromethamine 15 mg 02/08/20 15:51 02/08/20 17:43 Toradol Injection - IVPUSH 02/13/20 15:50 15 mg Q6H PRN Administration PAIN LEVEL 6-10 Mirtazapine 30 mg 02/03/20 22:00 02/08/20 21:22 Remeron - PO 30 mg HS EMILY Administration Pantoprazole Sodium 40 mg 02/04/20 10:00 02/08/20 09:13 Protonix Iv IVPUSH 40 mg DAILY EMILY Administration Promethazine HCl 12.5 mg 02/03/20 15:19 Phenergan Injection - IVPUSH Q6H PRN NAUSEA-FOR RESCUE AFTER 15 MIN ASSESSMENT/PLAN: 69 M High grade SBO s/p ex-lap POD#5 HTN HLD Uncontrolled COPD s/p appendectomy Hepatitis C (untreated) Hypomagnesemia Plan: Clear liquid diet per Surgery recs, monitor w/ serial abdominal exams Duonebs PRN for SOB PPI Gentle IV fluids Correct electrolytes DVT ppx: Heparin SC Visit type - Emergency Visit Emergency Visit: Yes ED Registration Date: 02/02/20 Care time: The patient presented to the Emergency Department on the above date and was hospitalized for further evaluation of their emergent condition. - New Patient This patient is new to me today: Yes Date on this admission: 02/08/20 - Critical Care Critical Care patient: No - Discharge Referral Referred to [facility] No - Medication Review Med list reviewed for High Risk Meds patients 65 and older: Yes
[2020-02-09] MEDS: AMINO ACIDS 4.25%/D5W 1,000 ML IV SCH (02:54)
[2020-02-09] MEDS: KETOROLAC TROMETHAMINE 15 MG/ML VIAL IVPUSH PRN ×3 (03:07→21:51)
[2020-02-09 06:43] LABS: EOS % 3.4 % (0-4.5); HEMATOCRIT 30.4 % (35.4-49); HEMOGLOBIN 9.9 GM/dL (11.7-16.9); LYMPH % 33.2 % (8-40); MCH 27.6 pg (25.7-33.7); MCHC 32.5 g/dl (32.0-35.9); MEAN CELL VOLUME 84.9 fl (80-96); MEAN PLT VOLUME 8.4 fl (7.5-11.1); NEUT % 51.4 % (42.8-82.8); PLATELET COUNT 301 K/MM3 (134-434); RBC 3.58 M/mm3 (4.00-5.60); RDW 16.2 % (11.9-15.9); WHITE BLOOD COUNT 6.2 K/mm3 (4.0-10.0)
[2020-02-09 07:10] LABS: BLOOD UREA NITROGEN 31.6 mg/dL (7-18); CALCIUM 8.2 mg/dL (8.5-10.1); POTASSIUM 4.2 mmol/L (3.5-5.1)
[2020-02-09] MEDS: ALBUTEROL SO4 2.5/IPRATROPIUM 0.5 INH SOL 3 ML VIAL.NEB. NEB SCH ×4 (07:25→19:49)
[2020-02-09] MEDS: HEPARIN NA (PORCINE) 5,000 UNITS/ML 1ML VIAL SQ SCH ×2 (10:06→21:51)
[2020-02-09] MEDS: PANTOPRAZOLE SODIUM 40 MG VIAL IVPUSH SCH (10:07)
[2020-02-09] MEDS: BUDESONIDE/FORMETEROL FUMARATE 80/4.5 mcg INHALER IH SCH ×2 (10:09→21:51)
--- NOTE | 2020-02-09 10:56 | DS ---
Physical Exam: SUBJECTIVE: Patient seen and examined OBJECTIVE: Vital Signs Period Temp Pulse Resp BP Sys/Monsalve Pulse Ox Last 24 Hr 97.4 F-98.5 F 91-117 20-20 92-141/63-78 95-98 PHYSICAL EXAM GENERAL: The patient is awake, alert, and fully oriented, in no acute distress. HEAD: Normal with no signs of trauma. EYES: PERRL, extraocular movements intact, sclera anicteric, conjunctiva clear. ENT: Ears normal, nares patent, oropharynx clear without exudates, moist mucous membranes. NECK: Trachea midline, full range of motion, supple. LUNGS: Breath sounds equal, clear to auscultation bilaterally, no wheezes, no crackles, no accessory muscle use. HEART: Regular rate and rhythm, S1, S2 without murmur, rub or gallop. ABDOMEN: Soft, nontender, nondistended, normoactive bowel sounds, no guarding, no rebound, no hepatosplenomegaly, no masses. EXTREMITIES: 2+ pulses, warm, well-perfused, no edema. NEUROLOGICAL: Cranial nerves II through XII grossly intact. Normal speech, gait not observed. PSYCH: Normal mood, normal affect. SKIN: Warm, dry, normal turgor, no rashes or lesions noted. LABS Laboratory Results - last 24 hr 02/09/20 02/09/20 05:50 05:50 WBC 6.2 RBC 3.58 L Hgb 9.9 L Hct 30.4 L MCV 84.9 MCH 27.6 MCHC 32.5 RDW 16.2 H Plt Count 301 MPV 8.4 Absolute Neuts (auto) 3.2 Neutrophils % 51.4 Lymphocytes % 33.2 Monocytes % 11.0 H Eosinophils % 3.4 Basophils % 1.0 Nucleated RBC % 0 Sodium 141 Potassium 4.2 Chloride 112 H Carbon Dioxide 26 Anion Gap 3 L BUN 31.6 H Creatinine 1.0 Est GFR (CKD-EPI)AfAm 87.37 Est GFR (CKD-EPI)NonAf 75.39 Random Glucose 104 Calcium 8.2 L HOSPITAL COURSE: Date of Admission:02/02/20 69-year-old male with a past medical history of COPD, hep C, multiple abdominal surgeries and recurrent SBO's presented abdominal pain nausea and vomiting found to have SBO. Patient was sent for emergent laparotomy due to concern of pneumoperitoneum. Patient POD 6 tolerating liquids. Stable for discharge to go home. 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 You may walk unlimited amounts of and climb stairs. Wound care Sponge bath only. Keep your incision clean and dry. Diet There are no dietary restrictions. Eat healthy, high-fiber foods. Drink 6 to 8 glasses of liquid each day. This will assist in keeping your bowels are regular. Pain management You may take Tylenol or acetaminophen or Ibuprofen (for example, Motrin, Advil etc.) Any pain prescription medication ordered should be taken as prescribed for moderate to severe pain. Call Dr. Snyder for any of the following: Severe pain not relieved by medication Fever of 101 or higher Excessive bleeding or drainage on dressing Inability to urinate Call the office at [phone] for an appointment in seven days. Referrals: Zohaib Barrera MD [Primary Care Provider] - - Home Medications Comprehensive Discharge Medication List: Ambulatory Orders Ipratropium/Albuterol Sulfate [Combivent Respimat 20-100 Mcg] 4 gm IH BID 10/13/17 Fluticasone/Salmeterol [Advair 250-50 Diskus] 1 each IH BID 06/15/19 Gabapentin [Neurontin] 300 mg PO HS 06/15/19 traZODone HCL [Trazodone HCl] 50 mg PO HS PRN 06/15/19 Doxepin HCl 75 mg PO DAILY 06/30/19 Mirtazapine 30 mg PO DAILY 06/30/19 - Discharge Referral Referred to [facility] No ATTENDING PHYSICIAN STATEMENT I saw and evaluated the patient. I reviewed the resident's note and discussed the case with the resident. I agree with the resident's findings and plan as documented. SUBJECTIVE: OBJECTIVE: ASSESSMENT AND PLAN:
[2020-02-09] MEDS ORDERED: DOCUSATE NA 100 MG/10 ML UNIT-DOSE CUPS PO ONE (12:42)
--- NOTE | 2020-02-09 12:42 | PN ---
Teaching Attending Note Name of Resident: Camelia Aranda ATTENDING PHYSICIAN STATEMENT I saw and evaluated the patient. I reviewed the resident's note and discussed the case with the resident. I agree with the resident's findings and plan as documented. SUBJECTIVE: Seen and examined at bedside. Tolerating diet. Cleared by surgery. HD stable. Medically cleared for discharge OBJECTIVE Last Vital Signs Temp Pulse Resp BP Pulse Ox 98.5 F 92 H 20 92/63 96 02/09/20 06:17 02/09/20 06:17 02/09/20 06:17 02/09/20 06:17 02/09/20 09:00 PE: GEN: NAD HEENT: NC/AT [place] RESP: CTAB CARDS: RRR, -MRG ABD: soft, nt/nd +BS EXT: No swelling/Edema Neuro: Non-focal, A&OX3 Labs/Imaging: reviewed ASSESSMENT/PLAN 69-year-old male with a past medical history of COPD, hep C, multiple abdominal surgeries and recurrent SBO's presented abdominal pain nausea and vomiting found to have SBO. Patient was sent for emergent laparotomy due to concern of pneumoperitoneum. Following laparotomy patient developed a postoperative ileus which then resolved. He is now passing flatus and has had a bowel movement, is tolerating a p.o. diet, and is hemodynamically stable. Patient is medically cleared for discharge on his home medications. He will follow-up with surgery as an outpatient
--- NOTE | 2020-02-09 15:27 | PN ---
Physical Exam: SUBJECTIVE: Patient seen and examined, reports his pain is much better and he is tolerating food. OBJECTIVE: Vital Signs Period Temp Pulse Resp BP Sys/Monsalve Pulse Ox Last 24 Hr 98.3 F-98.8 F 91-100 20-20 92-141/63-78 95-98 GENERAL: The patient is awake, alert, and fully oriented, in no acute distress. HEAD: Normal with no signs of trauma. EYES: PERRL, extraocular movements intact ENT: moist mucous membranes. LUNGS: Breath sounds equal, clear to auscultation bilaterally, no wheezes, no crackles, no accessory muscle use. HEART: Regular rate and rhythm, S1, S2 without murmur, rub or gallop. ABDOMEN:tender, midline candice SKIN: Warm, dry, normal turgor, no rashes or lesions noted CBC, BMP 02/09/20 05:50 02/09/20 05:50 Active Medications Generic Name Dose Route Start Last Admin Trade Name Freq PRN Reason Stop Dose Admin Albuterol/Ipratropium 1 amp 02/05/20 20:00 02/09/20 11:28 Duoneb - NEB Not Given RQID EMILY Budesonide/Formoterol Fumarate 2 puff 02/02/20 22:00 02/09/20 10:09 Symbicort 80/4.5mcg - IH 2 puff BID EMILY Administration Doxepin HCl 75 mg 02/02/20 22:00 02/08/20 21:22 Sinequan - PO 75 mg HS EMILY Administration Heparin Sodium (Porcine) 5,000 unit 02/02/20 22:00 02/09/20 10:06 Heparin - SQ 5,000 unit BID EMILY Administration Ketorolac Tromethamine 15 mg 02/08/20 15:51 02/09/20 13:54 Toradol Injection - IVPUSH 02/13/20 15:50 15 mg Q6H PRN Administration PAIN LEVEL 6-10 Mirtazapine 30 mg 02/03/20 22:00 02/08/20 21:22 Remeron - PO 30 mg HS EMILY Administration Pantoprazole Sodium 40 mg 02/10/20 10:00 Protonix - PO DAILY EMILY Promethazine HCl 12.5 mg 02/03/20 15:19 Phenergan Injection - IVPUSH Q6H PRN NAUSEA-FOR RESCUE AFTER 15 MIN ASSESSMENT/PLAN: 69-year-old male with a past medical history of COPD, hep C, multiple abdominal surgeries and recurrent SBO's admitted for SBO. #SBO post op day 6 - patient tolerating diet and cleared for DC - patient to be DC'd on tyleonol and ibuprofen for pain control - candice to be removed outpatient - urinary retention resolved - protonix 40 po daily #COPD - on home O2 - continue home meds DVT ppx: heparin TID Dispo: can DC once accepted to SNF Visit type - Emergency Visit Emergency Visit: No - New Patient This patient is new to me today: Yes Date on this admission: 02/09/20 - Critical Care Critical Care patient: No - Medication Review Med list reviewed for High Risk Meds patients 65 and older: Yes ATTENDING PHYSICIAN STATEMENT I saw and evaluated the patient. I reviewed the resident's note and discussed the case with the resident. I agree with the resident's findings and plan as documented. SUBJECTIVE: OBJECTIVE: ASSESSMENT AND PLAN:
[2020-02-09] MEDS ORDERED: AMINO ACIDS/PROTEIN HYDROLYS 30 ML LIQUID.PKT PO SCH (17:30)
[2020-02-09] MEDS ORDERED: PT OWN MED DRAWER 7, Y5N ONE (20:18)
[2020-02-09] MEDS: DOXEPIN HCL 25 MG CAPSULE PO SCH (21:51)
[2020-02-09] MEDS: MIRTAZAPINE 15 MG TABLET (FP) PO SCH (21:51)
[2020-02-10] MEDS: ALBUTEROL SO4 2.5/IPRATROPIUM 0.5 INH SOL 3 ML VIAL.NEB. NEB SCH ×2 (07:49→11:10)
[2020-02-10 08:44] LABS: HEMATOCRIT 28.7 % (35.4-49); HEMOGLOBIN 9.5 GM/dL (11.7-16.9); MCH 27.7 pg (25.7-33.7); MEAN PLT VOLUME 8.6 fl (7.5-11.1); PLATELET COUNT 299 K/MM3 (134-434); RBC 3.42 M/mm3 (4.00-5.60); RDW 16.3 % (11.9-15.9); WHITE BLOOD COUNT 6.4 K/mm3 (4.0-10.0)
[2020-02-10 08:57] LABS: ALBUMIN 2.9 g/dl (3.4-5.0); BLOOD UREA NITROGEN 28.2 mg/dL (7-18); CALCIUM 8.8 mg/dL (8.5-10.1); POTASSIUM 4.4 mmol/L (3.5-5.1)
[2020-02-10 09:05] LABS: BILIRUBIN,TOTAL 0.3 mg/dL (0.2-1); CREATININE 0.9 mg/dL (0.55-1.3); TOT PROT 5.9 g/dl (6.4-8.2)
[2020-02-10] MEDS: HEPARIN NA (PORCINE) 5,000 UNITS/ML 1ML VIAL SQ SCH (09:44)
[2020-02-10] MEDS: BUDESONIDE/FORMETEROL FUMARATE 80/4.5 mcg INHALER IH SCH (09:46)
--- NOTE | 2020-02-10 09:59 | PN ---
Progress Note (short form) - Note Progress Note: Surgery: pt without any nausea. Having BM/flatus. Vital Signs Period Temp Pulse Resp BP Sys/Monsalve Pulse Ox Last 24 Hr 97.6 F-98.8 F 86-100 20-22 102-120/64-73 98-100 GEN: A&0x3 ABD: soft, flat, inc tenderness. Inc c/d/i with candice CBC, BMP 02/10/20 06:25 02/10/20 06:25 A/p: 69 yo male s/p ex lap with NHI/enterorraphy, POD#8 Pt tolerating a diet Plan for discharge to rehab F/u in the office with Dr. MORROW for staple removal
[2020-02-10] MEDS ORDERED: PANTOPRAZOLE 40 MG TABLET PO SCH (10:00)
[2020-02-10] MEDS: KETOROLAC TROMETHAMINE 15 MG/ML VIAL IVPUSH PRN (11:50)
--- NOTE | 2020-02-10 12:38 | PN ---
Teaching Attending Note Name of Resident: Jan Deng ATTENDING PHYSICIAN STATEMENT I saw and evaluated the patient. I reviewed the resident's note and discussed the case with the resident. I agree with the resident's findings and plan as documented. SUBJECTIVE: Seen and examined at bedside. After patient was discharged yesterday he change his mind and decided he wanted to go to short-term rehab. Patient remains medically cleared for discharge pending placement at short-term rehab OBJECTIVE Last Vital Signs Temp Pulse Resp BP Pulse Ox 98.5 F 86 20 102/73 99 02/10/20 07:01 02/10/20 07:01 02/10/20 07:01 02/10/20 07:01 02/10/20 07:01 PE: GEN: NAD HEENT: NC/AT [place] RESP: CTAB CARDS: RRR, -MRG ABD: soft, nt/nd +BS EXT: No swelling/Edema Neuro: Non-focal, A&OX3 Labs/Imaging: reviewed ASSESSMENT/PLAN 69-year-old male with a past medical history of COPD, hep C, multiple abdominal surgeries and recurrent SBO's presented abdominal pain nausea and vomiting found to have SBO. Patient was sent for emergent laparotomy due to concern of pneumoperitoneum. Following laparotomy patient developed a postoperative ileus which then resolved. He is now passing flatus and has had a bowel movement, is tolerating a p.o. diet, and is hemodynamically stable. Patient is medically cleared for discharge on his home medications. He will follow-up with surgery as an outpatient
[2020-02-10 15:46] VITALS: BP 114/69; PULSE 84; TEMP 98.2
[2020-02-10 15:54] VITALS: BMI 22.6
--- NOTE | 2020-02-10 18:07 | DS ---
Physical Exam: SUBJECTIVE: Patient seen and examined OBJECTIVE: Vital Signs Period Temp Pulse Resp BP Sys/Monsalve Pulse Ox Last 24 Hr 97.6 F-98.5 F 84-95 20-22 102-120/64-73 96-100 PHYSICAL EXAM GENERAL: The patient is awake, alert, and fully oriented, in no acute distress. HEAD: Normal with no signs of trauma. EYES: PERRL, extraocular movements intact, sclera anicteric, conjunctiva clear. ENT: Ears normal, nares patent, oropharynx clear without exudates, moist mucous membranes. NECK: Trachea midline, full range of motion, supple. LUNGS: Breath sounds equal, clear to auscultation bilaterally, no wheezes, no crackles, no accessory muscle use. HEART: Regular rate and rhythm, S1, S2 without murmur, rub or gallop. ABDOMEN: Soft, nontender, nondistended, normoactive bowel sounds, no guarding, no rebound, no hepatosplenomegaly, no masses. EXTREMITIES: 2+ pulses, warm, well-perfused, no edema. NEUROLOGICAL: Cranial nerves II through XII grossly intact. Normal speech, gait not observed. PSYCH: Normal mood, normal affect. SKIN: Warm, dry, normal turgor, no rashes or lesions noted. LABS Laboratory Results - last 24 hr 02/10/20 02/10/20 02/10/20 06:25 06:25 12:45 WBC 6.4 RBC 3.42 L Hgb 9.5 L Hct 28.7 L MCV 84.0 MCH 27.7 MCHC 33.0 RDW 16.3 H Plt Count 299 MPV 8.6 Sodium 142 Potassium 4.4 Chloride 110 H Carbon Dioxide 26 Anion Gap 6 L BUN 28.2 H Creatinine 0.9 Est GFR (CKD-EPI)AfAm 99.24 Est GFR (CKD-EPI)NonAf 85.63 Random Glucose 88 Calcium 8.8 Total Bilirubin 0.3 AST 14 L ALT 15 Alkaline Phosphatase 35 L Total Protein 5.9 L Albumin 2.9 L SARS-CoV-2 (PCR) Negative HOSPITAL COURSE: Date of Admission:02/02/20 Date of Discharge: 02/10/20 Discharge Summary Problems reviewed: Yes Reason For Visit: SMALL BOWEL OBSTRUCTION PNEUMOPERITONEUM Current Active Problems Abdominal pain (Acute) Nausea & vomiting (Acute) Pneumoperitoneum (Acute) 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 You may walk unlimited amounts of and climb stairs. Wound care Sponge bath only. Keep your incision clean and dry. Diet There are no dietary restrictions. Eat healthy, high-fiber foods. Drink 6 to 8 glasses of liquid each day. This will assist in keeping your bowels are regular. Pain management You may take Tylenol or acetaminophen or Ibuprofen (for example, Motrin, Advil etc.) Any pain prescription medication ordered should be taken as prescribed for moderate to severe pain. Do not Exceed 3gm's of tylenol a day and do not exceed 3gms of Ibuprofen a day. Call Dr. Snyder for any of the following: Severe pain not relieved by medication Fever of 101 or higher Excessive bleeding or drainage on dressing Inability to urinate Call the office at [phone] for an appointment in seven days. Please continue all your home medications as prescribed. Make an appointment to follow up with your Primary Care Physician within one week. Return to the Emergency Department if you have any nausea, vomiting, chest pain, shortness of breath or severe abdominal pain. Referrals: Brendon Snyder MD [Staff Physician] - 1 Week Zohaib Barrera MD [Primary Care Provider] - (Appointment scheduled : 02/23 3:30pm) Disposition: [facility]/HOME HEALTH CARE - Home Medications Comprehensive Discharge Medication List: Ambulatory Orders Ipratropium/Albuterol Sulfate [Combivent Respimat 20-100 Mcg] 4 gm IH BID 10/13/17 Fluticasone/Salmeterol [Advair 250-50 Diskus] 1 each IH BID 06/15/19 Gabapentin [Neurontin] 300 mg PO HS 06/15/19 traZODone HCL [Trazodone HCl] 50 mg PO HS PRN 06/15/19 Doxepin HCl 75 mg PO DAILY 06/30/19 Mirtazapine 30 mg PO DAILY 06/30/19 - Discharge Referral Referred to [facility] No ATTENDING PHYSICIAN STATEMENT I saw and evaluated the patient. I reviewed the resident's note and discussed the case with the resident. I agree with the resident's findings and plan as documented. SUBJECTIVE: OBJECTIVE: ASSESSMENT AND PLAN:
== END 2020-02-10 18:32 | DRG 329 ==
LOC: JER 09:41 → JERBED 15:49 → J8W 21:19
PROVIDERS: ATTEND Internal Medicine
PROC: 0DQ80ZZ Repair Small Intestine, Open Approach (ICD-10-PCS; 2020-02-02)
PROC: 0DN80ZZ Release Small Intestine, Open Approach (ICD-10-PCS; 2020-02-02)
PROC: 0D9670Z Drainage of Stomach with Drainage Device, Via Natural or Artificial Opening (ICD-10-PCS; principal; 2020-02-02 16:30)
DX: K56.51 Intestinal adhesions [bands], with partial obstruction (principal); E43 Unspecified severe protein-calorie malnutrition; K91.71 Accidental puncture and laceration of a digestive system organ or structure during a digestive system procedure; Z68.1 Body mass index [BMI] 19.9 or less, adult; J44.9 Chronic obstructive pulmonary disease, unspecified; B19.20 Unspecified viral hepatitis C without hepatic coma; M54.5 Low back pain; K66.8 Other specified disorders of peritoneum; R33.9 Retention of urine, unspecified; I10 Essential (primary) hypertension; E78.5 Hyperlipidemia, unspecified; E83.42 Hypomagnesemia; R11.2 Nausea with vomiting, unspecified; K91.30 Postprocedural intestinal obstruction, unspecified as to partial versus complete; Y83.8 Other surgical procedures as the cause of abnormal reaction of the patient, or of later complication, without mention of misadventure at the time of the procedure; Z99.81 Dependence on supplemental oxygen
CPT/HCPCS: 36415; 71045-TC-FY; 74019-TC-FY; 74177-TC; 80048; 80053; 81003; 83605; 83735; 84100; 84484; 85025; 85027; 85610; 85730; 86850; 86900; 86901; 93005; 93010; 94640; 94760; 97116-GP; 97161-GP; 99285-25; C9803; J0131; J1644; U0003

== ENCOUNTER 2020-04-08 01:03 | Inpatient (IN) | payer MEDICARE, OTHER ==
[2020-04-08] MEDS ORDERED: ALBUTEROL SO4 2.5/IPRATROPIUM 0.5 INH SOL 3 ML VIAL.NEB. NEB ONE ×3 (01:22→08:40)
[2020-04-08] MEDS ORDERED: methylPREDNISolone NA SUCC 125 MG/2 ML VIAL IVPB ONE (01:27)
[2020-04-08 03:47] LABS: CHLORIDE 105 mmol/L (98-107); POTASSIUM 4.4 mmol/L (3.5-5.1); SODIUM 141 mmol/L (136-145)
[2020-04-08 03:49] LABS: CALCIUM 8.7 mg/dL (8.5-10.1)
[2020-04-08 03:50] LABS: ALBUMIN 3.8 g/dl (3.4-5.0); ANION GAP 5 MMOL/L (8-16); BLOOD UREA NITROGEN 10.3 mg/dL (7-18); CO2 31 mmol/L (21-32); GLUCOSE,RANDOM 190 mg/dL (74-106)
[2020-04-08 03:53] LABS: CREATININE 1.2 mg/dL (0.55-1.3); SGOT/AST 10 U/L (15-37); SGPT/ALT 12 U/L (13-61)
[2020-04-08 03:54] LABS: BILIRUBIN,TOTAL 0.2 mg/dL (0.2-1)
[2020-04-08 03:56] LABS: ALK PHOS 75 U/L (45-117)
[2020-04-08 03:58] LABS: N-TERMINAL BNP 24.8 pg/ml (5-125)
[2020-04-08 03:59] LABS: BASO % 0.5 % (0-2.0); EOS % 0.8 % (0-4.5); HEMATOCRIT 39.4 % (35.4-49); HEMOGLOBIN 12.7 GM/dL (11.7-16.9); LYMPH % 12.2 % (8-40); MCH 27.3 pg (25.7-33.7); MCHC 32.3 g/dl (32.0-35.9); MEAN CELL VOLUME 84.4 fl (80-96); MONO % 1.7 % (3.8-10.2); NEUT % 84.8 % (42.8-82.8); PLATELET COUNT 262 K/MM3 (134-434); RBC 4.66 M/mm3 (4.00-5.60); RDW 15.2 % (11.9-15.9); WHITE BLOOD COUNT 9.6 K/mm3 (4.0-10.0)
[2020-04-08] MEDS ORDERED: LACTATED RINGERS SOLUTION 1000 ML INFUS.BAG IV ONE (04:31)
[2020-04-08] MEDS ORDERED: CEFTRIAXONE 1,000 MG in DEXTROSE 5%-WATER - 50 ML IVPB ONE (04:35)
[2020-04-08] MEDS ORDERED: AZITHROMYCIN IVPB 500 MG in DEXTROSE 5%-WATER - 250 ML IVPB ONE (04:39)
[2020-04-08 04:47] LABS: ARTERIAL BLD GAS O2 SATURATION 96.5 mmHg (95-98); ARTERIAL BLOOD GAS BASE EXCESS 1.7 mmol/L (-2-2); ARTERIAL BLOOD GAS PO2 93.6 mmHg (80-100); ARTERIAL BLOOD GAS pH 7.331 (7.350-7.450)
[2020-04-08 04:59] LABS: ALLENS TEST POSITIVE; VENT MODE S/T
[2020-04-08 05:00] LABS: VENT RATE 14
[2020-04-08] MEDS ORDERED: CEFTRIAXONE 1 GM/50 ML BAG ONE (05:03)
[2020-04-08] MEDS ORDERED: AZITHROMYCIN IVPB 500 MG/250 ML BAG IVPB ONE ×2 (05:03→08:41)
[2020-04-08] MEDS ORDERED: traZODone HCL 50 MG TABLET (FP) PO PRN (06:36)
[2020-04-08] MEDS ORDERED: ENOXAPARIN NA (PORCINE) 40 MG/0.4 ML DISP.SYRIN SQ ONE (08:40)
[2020-04-08] MEDS ORDERED: methylPREDNISolone NA SUCC 40 MG/1 ML VIAL ONE (08:41)
[2020-04-08] MEDS: ALBUTEROL SO4 2.5/IPRATROPIUM 0.5 INH SOL 3 ML VIAL.NEB. NEB SCH ×2 (08:42→15:16)
[2020-04-08] MEDS: ENOXAPARIN NA (PORCINE) 40 MG/0.4 ML DISP.SYRIN SQ SCH (09:01)
[2020-04-08] MEDS: AZITHROMYCIN IVPB 500 MG/250 ML BAG IVPB SCH (09:01)
[2020-04-08] MEDS: BUDESONIDE/FORMETEROL FUMARATE 160/4.5 mcg INHALER IH SCH ×2 (09:36→21:08)
[2020-04-08] MEDS: DOXEPIN HCL 25 MG CAPSULE PO SCH (09:36)
[2020-04-08] MEDS: POLYETHYLENE GLYCOL 3350 119 GM BTL PO SCH (09:36)
[2020-04-08] MEDS ORDERED: methylPREDNISolone NA SUCC 40 MG/1 ML VIAL IVPUSH SCH ×2 (10:00→18:00)
[2020-04-08 12:55] LABS: HEMATOCRIT 35.8 % (35.4-49); HEMOGLOBIN 11.6 GM/dL (11.7-16.9); MCH 27.3 pg (25.7-33.7); MCHC 32.5 g/dl (32.0-35.9); MEAN CELL VOLUME 84.1 fl (80-96); MEAN PLT VOLUME 8.6 fl (7.5-11.1); PLATELET COUNT 238 K/MM3 (134-434); RBC 4.26 M/mm3 (4.00-5.60); RDW 14.9 % (11.9-15.9); WHITE BLOOD COUNT 5.4 K/mm3 (4.0-10.0)
[2020-04-08 12:57] LABS: PH,URINE 7.5 (5.0-8.0); URINE APPEARANCE Error; URINE BILIRUBIN NEGATIVE (NEGATIVE); URINE COLOR YELLOW; URINE GLUCOSE (UA) TRACE (NEGATIVE); URINE KETONE NEGATIVE (NEGATIVE); URINE LEUK ESTERASE NEGATIVE (NEGATIVE); URINE NITRITE NEGATIVE (NEGATIVE); URINE PROTEIN NEGATIVE (NEGATIVE); URINE UROBILINOGEN 0.2 mg/dL (0.2-1.0)
[2020-04-08 13:18] LABS: ALBUMIN 3.4 g/dl (3.4-5.0); BLOOD UREA NITROGEN 10.4 mg/dL (7-18); MAGNESIUM 2.4 mg/dL (1.8-2.4)
[2020-04-08 13:21] LABS: CREATININE 1.1 mg/dL (0.55-1.3); PHOSPHOROUS 1.7 mg/dL (2.5-4.9)
[2020-04-08 13:22] LABS: BILIRUBIN,TOTAL 0.2 mg/dL (0.2-1); TOT PROT 7.1 g/dl (6.4-8.2)
[2020-04-08] MEDS ORDERED: SODIUM CHLORIDE 500 ML IV STA (14:02)
[2020-04-08] MEDS: NICOTINE 14 MG/24 HOURS TOPICAL PATCH TD SCH (15:16)
[2020-04-08 15:37] VITALS: BMI 16.9
[2020-04-08] MEDS ORDERED: PT OWN MED DRAWER 7, Y5N ONE ×2 (15:37→21:10)
[2020-04-08] MEDS: SODIUM CHLORIDE 1,000 ML IV SCH (16:11)
[2020-04-08] MEDS: NAPH,MB-DB/K PH,MBDB POWDER PACKET PO SCH ×2 (17:59→23:00)
[2020-04-08] MEDS ORDERED: MIRTAZAPINE 15 MG TABLET (FP) ONE (20:52)
[2020-04-08] MEDS: GABAPENTIN 300 MG CAPSULE PO SCH (21:07)
[2020-04-08] MEDS: MIRTAZAPINE 30 MG TABLET PO SCH (21:07)
[2020-04-09 07:24] LABS: BASO % 0.2 % (0-2.0); HEMATOCRIT 33.3 % (35.4-49); HEMOGLOBIN 10.6 GM/dL (11.7-16.9); LYMPH % 16.8 % (8-40); MCH 26.6 pg (25.7-33.7); MCHC 31.9 g/dl (32.0-35.9); MEAN CELL VOLUME 83.4 fl (80-96); MEAN PLT VOLUME 8.7 fl (7.5-11.1); MONO % 8.3 % (3.8-10.2); NEUT % 74.7 % (42.8-82.8); PLATELET COUNT 229 K/MM3 (134-434); RBC 3.99 M/mm3 (4.00-5.60); RDW 14.7 % (11.9-15.9); WHITE BLOOD COUNT 10.5 K/mm3 (4.0-10.0)
[2020-04-09] MEDS: SODIUM CHLORIDE 1,000 ML IV SCH (07:31)
[2020-04-09 07:45] LABS: POTASSIUM 4.5 mmol/L (3.5-5.1)
[2020-04-09 07:47] LABS: CALCIUM 8.5 mg/dL (8.5-10.1)
[2020-04-09 07:48] LABS: ALBUMIN 3.1 g/dl (3.4-5.0); MAGNESIUM 2.3 mg/dL (1.8-2.4)
[2020-04-09 07:49] LABS: BLOOD UREA NITROGEN 9.9 mg/dL (7-18)
[2020-04-09 07:51] LABS: CREATININE 0.9 mg/dL (0.55-1.3); PHOSPHOROUS 3.8 mg/dL (2.5-4.9)
[2020-04-09 07:52] LABS: BILIRUBIN,TOTAL 0.3 mg/dL (0.2-1)
[2020-04-09 07:53] LABS: TOT PROT 6.3 g/dl (6.4-8.2)
[2020-04-09] MEDS: ENOXAPARIN NA (PORCINE) 40 MG/0.4 ML DISP.SYRIN SQ SCH (09:23)
[2020-04-09] MEDS: NICOTINE 14 MG/24 HOURS TOPICAL PATCH TD SCH (09:23)
[2020-04-09] MEDS: predniSONE 20 MG TABLET (UD) PO SCH (09:24)
[2020-04-09] MEDS: DOXEPIN HCL 25 MG CAPSULE PO SCH (09:24)
[2020-04-09] MEDS: AZITHROMYCIN IVPB 500 MG/250 ML BAG IVPB SCH (09:25)
[2020-04-09] MEDS: BUDESONIDE/FORMETEROL FUMARATE 160/4.5 mcg INHALER IH SCH ×2 (09:28→21:32)
[2020-04-09] MEDS: POLYETHYLENE GLYCOL 3350 119 GM BTL PO SCH (09:40)
[2020-04-09] MEDS: ALBUTEROL SO4 2.5/IPRATROPIUM 0.5 INH SOL 3 ML VIAL.NEB. NEB SCH ×3 (13:30→20:37)
[2020-04-09] MEDS ORDERED: MIRTAZAPINE 15 MG TABLET (FP) ONE (21:24)
[2020-04-09] MEDS: GABAPENTIN 300 MG CAPSULE PO SCH (21:28)
[2020-04-09] MEDS: MIRTAZAPINE 30 MG TABLET PO SCH (21:32)
[2020-04-10] MEDS: ALBUTEROL SO4 2.5/IPRATROPIUM 0.5 INH SOL 3 ML VIAL.NEB. NEB SCH ×4 (07:45→20:30)
[2020-04-10] MEDS: ENOXAPARIN NA (PORCINE) 40 MG/0.4 ML DISP.SYRIN SQ SCH (09:42)
[2020-04-10] MEDS: predniSONE 20 MG TABLET (UD) PO SCH (09:42)
[2020-04-10] MEDS: BUDESONIDE/FORMETEROL FUMARATE 160/4.5 mcg INHALER IH SCH ×2 (09:42→21:06)
[2020-04-10] MEDS: DOCUSATE SODIUM 100 MG CAPSULE (FP) PO PRN (09:42)
[2020-04-10] MEDS: AZITHROMYCIN IVPB 500 MG/250 ML BAG IVPB SCH (09:42)
[2020-04-10] MEDS: DOXEPIN HCL 25 MG CAPSULE PO SCH (09:42)
[2020-04-10] MEDS: NICOTINE 14 MG/24 HOURS TOPICAL PATCH TD SCH (09:43)
[2020-04-10] MEDS: POLYETHYLENE GLYCOL 3350 119 GM BTL PO SCH (09:43)
[2020-04-10] MEDS ORDERED: MIRTAZAPINE 15 MG TABLET (FP) ONE (21:03)
[2020-04-10] MEDS: GABAPENTIN 300 MG CAPSULE PO SCH (21:06)
[2020-04-10] MEDS: MIRTAZAPINE 30 MG TABLET PO SCH (21:06)
[2020-04-11] MEDS: ALBUTEROL SO4 2.5/IPRATROPIUM 0.5 INH SOL 3 ML VIAL.NEB. NEB SCH ×4 (08:50→20:28)
[2020-04-11] MEDS: NICOTINE 14 MG/24 HOURS TOPICAL PATCH TD SCH (09:36)
[2020-04-11] MEDS: DOXEPIN HCL 25 MG CAPSULE PO SCH (09:37)
[2020-04-11] MEDS: predniSONE 20 MG TABLET (UD) PO SCH (09:37)
[2020-04-11] MEDS: POLYETHYLENE GLYCOL 3350 119 GM BTL PO SCH (09:37)
[2020-04-11] MEDS: DOCUSATE SODIUM 100 MG CAPSULE (FP) PO PRN (09:37)
[2020-04-11] MEDS: BUDESONIDE/FORMETEROL FUMARATE 160/4.5 mcg INHALER IH SCH ×2 (09:38→21:46)
[2020-04-11] MEDS: ENOXAPARIN NA (PORCINE) 40 MG/0.4 ML DISP.SYRIN SQ SCH (09:38)
[2020-04-11] MEDS ORDERED: ALBUTEROL SO4 0.083% IH SOL 2.5 MG/3 ML VIAL.NEB. NEB PRN (09:40)
[2020-04-11] MEDS ORDERED: MIRTAZAPINE 15 MG TABLET (FP) ONE (21:41)
[2020-04-11] MEDS: GABAPENTIN 300 MG CAPSULE PO SCH (21:43)
[2020-04-11] MEDS: MIRTAZAPINE 30 MG TABLET PO SCH (21:45)
[2020-04-12] MEDS: ALBUTEROL SO4 2.5/IPRATROPIUM 0.5 INH SOL 3 ML VIAL.NEB. NEB SCH ×4 (07:33→20:27)
[2020-04-12] MEDS: predniSONE 20 MG TABLET (UD) PO SCH (09:13)
[2020-04-12] MEDS: ENOXAPARIN NA (PORCINE) 40 MG/0.4 ML DISP.SYRIN SQ SCH (09:13)
[2020-04-12] MEDS: DOXEPIN HCL 25 MG CAPSULE PO SCH (09:14)
[2020-04-12] MEDS: POLYETHYLENE GLYCOL 3350 119 GM BTL PO SCH (09:15)
[2020-04-12] MEDS: NICOTINE 14 MG/24 HOURS TOPICAL PATCH TD SCH (09:15)
[2020-04-12] MEDS: BUDESONIDE/FORMETEROL FUMARATE 160/4.5 mcg INHALER IH SCH (09:17)
[2020-04-12] MEDS ORDERED: PANTOPRAZOLE SODIUM 40 MG VIAL IVPUSH ONE (13:39)
[2020-04-12 20:49] VITALS: BP 93/64; PULSE 84; TEMP 98.2
== END 2020-04-12 20:51 | disposition home health service (06) | DRG 189 ==
LOC: JER 01:03 → JERBED 04:18 → J7W 13:33
PROVIDERS: ADMIT Hospitalist; ATTEND Internal Medicine
DX: J96.02 Acute respiratory failure with hypercapnia (principal); J44.1 Chronic obstructive pulmonary disease with (acute) exacerbation; E87.2 Acidosis; N17.9 Acute kidney failure, unspecified; R64 Cachexia; Z68.1 Body mass index [BMI] 19.9 or less, adult; F17.210 Nicotine dependence, cigarettes, uncomplicated; M54.5 Low back pain; M19.90 Unspecified osteoarthritis, unspecified site
CPT/HCPCS: 36415; 36600; 71045-TC-FY; 80053; 81003; 82550; 82553; 82803; 83605; 83735; 83880; 84100; 84484; 85025; 85027; 87040; 87086; 93005; 93010; 94640; 94660; 94761; 97116-GP; 97161-GP; 99291; C9803; U0003

== ENCOUNTER 2021-05-19 12:04 | Inpatient (IN) | payer MEDICARE, OTHER ==
[2021-05-19] MEDS ORDERED: LACTATED RINGERS SOLUTION 1000 ML INFUS.BAG IV ONE (12:59)
[2021-05-19] MEDS ORDERED: DEXAMETHASONE SOD PHOSPHATE 4 MG/1 ML VIAL IVPUSH ONE (12:59)
[2021-05-19] MEDS ORDERED: ALBUTEROL SO4 2.5/IPRATROPIUM 0.5 INH SOL 3 ML VIAL.NEB. NEB PRN (12:59)
[2021-05-19] MEDS ORDERED: AZITHROMYCIN IVPB 500 MG in DEXTROSE 5%-WATER - 250 ML IVPB ONE (13:24)
[2021-05-19] MEDS ORDERED: DEXAMETHASONE SOD PHOSPHATE 4 MG/1 ML VIAL ONE (13:26)
[2021-05-19] MEDS ORDERED: ACETAMINOPHEN 1000 MG/100 ML BAG IVPB ONE (13:26)
[2021-05-19] MEDS ORDERED: ALBUTEROL SO4 2.5/IPRATROPIUM 0.5 INH SOL 3 ML VIAL.NEB. NEB ONE (13:26)
[2021-05-19] MEDS ORDERED: ACETAMINOPHEN INJECTION 100 ML IVPB ONE (13:44)
[2021-05-19] MEDS ORDERED: AZITHROMYCIN IVPB 500 MG/250 ML BAG IVPB ONE (13:44)
[2021-05-19 13:49] LABS: VENOUS BASE EXCESS 0.8 mmol/L (-2-2); VENOUS O2 SATURATION 51.6 % (70-80); VENOUS PCO2 54.6 mmHg (38-52); VENOUS PH 7.326 (7.310-7.410)
[2021-05-19 13:53] LABS: BASO % 0.4 % (0-2.0); EOS % 0.2 % (0-4.5); HEMATOCRIT 38.2 % (35.4-49); HEMOGLOBIN 12.4 GM/dL (11.7-16.9); LYMPH % 22.9 % (8-40); MCH 26.3 pg (25.7-33.7); MCHC 32.3 g/dl (32.0-35.9); MEAN CELL VOLUME 81.3 fl (80-96); MEAN PLT VOLUME 8.3 fl (7.5-11.1); MONO % 13.9 % (3.8-10.2); NEUT % 62.6 % (42.8-82.8); PLATELET COUNT 213 10^3/uL (134-434); RDW 14.6 % (11.9-15.9); WHITE BLOOD COUNT 3.8 K/mm3 (4.0-10.0)
[2021-05-19 14:10] LABS: INR 1.18 (0.83-1.09); PROTHROMBIN TIME (PATIENT) 13.6 SEC (9.7-13.0)
[2021-05-19 14:12] LABS: ACTIVATED PTT 28.9 SECONDS (25.2-36.5); CHLORIDE 103 mmol/L (98-107); SODIUM 138 mmol/L (136-145)
[2021-05-19 14:15] LABS: ALBUMIN 3.5 g/dl (3.4-5.0)
[2021-05-19 14:16] LABS: ANION GAP 5 MMOL/L (8-16); BLOOD UREA NITROGEN 9.1 mg/dL (7-18); CO2 30 mmol/L (21-32); GLUCOSE,RANDOM 97 mg/dL (74-106)
[2021-05-19 14:18] LABS: SGPT/ALT 16 U/L (13-61)
[2021-05-19 14:19] LABS: CREATININE 0.9 mg/dL (0.55-1.3); SGOT/AST 18 U/L (15-37)
[2021-05-19 14:20] LABS: BILIRUBIN,TOTAL 0.6 mg/dL (0.2-1); TOT PROT 7.3 g/dl (6.4-8.2)
[2021-05-19 14:21] LABS: ALK PHOS 52 U/L (45-117); LDH 203 U/L (87-246)
[2021-05-19 14:35] LABS: MAGNESIUM 2.5 mg/dL (1.8-2.4)
[2021-05-19] MEDS ORDERED: ACETAMINOPHEN 325 MG TABLET (FP) PO PRN (15:05)
[2021-05-19] MEDS ORDERED: SODIUM CHLORIDE 1,000 ML IV SCH (15:15)
[2021-05-19] MEDS ORDERED: ENOXAPARIN NA (PORCINE) 40 MG/0.4 ML DISP.SYRIN SQ ONE (16:06)
[2021-05-19] MEDS: ENOXAPARIN NA (PORCINE) 40 MG/0.4 ML DISP.SYRIN SQ SCH (16:13)
[2021-05-19] MEDS ORDERED: ALBUTEROL SO4 HFA INHALER IH PRN (17:27)
[2021-05-19] MEDS ORDERED: REMDESIVIR 200 MG in SODIUM CHLORIDE 250 ML IVPB ONE (17:40)
[2021-05-19] MEDS: BUDESONIDE/FORMETEROL FUMARATE 160/4.5 mcg INHALER IH SCH (22:36)
[2021-05-19] MEDS ORDERED: GABAPENTIN 300 MG CAPSULE PO ONE (23:00)
[2021-05-19] MEDS ORDERED: oxyCODONE HCL 5 MG TABLET PO ONE (23:00)
[2021-05-20] MEDS: ENOXAPARIN NA (PORCINE) 40 MG/0.4 ML DISP.SYRIN SQ SCH (10:19)
[2021-05-20] MEDS: BUDESONIDE/FORMETEROL FUMARATE 160/4.5 mcg INHALER IH SCH ×3 (10:20→21:16)
[2021-05-20] MEDS: DEXAMETHASONE SOD PHOSPHATE 4 MG/1 ML VIAL IVPUSH SCH ×2 (10:20→15:53)
[2021-05-20 11:13] LABS: BASO % 0.4 % (0-2.0); HEMATOCRIT 35.3 % (35.4-49); HEMOGLOBIN 11.3 GM/dL (11.7-16.9); LYMPH % 22.9 % (8-40); MCHC 32.1 g/dl (32.0-35.9); MEAN CELL VOLUME 81.1 fl (80-96); MEAN PLT VOLUME 8.9 fl (7.5-11.1); MONO % 11.4 % (3.8-10.2); NEUT % 65.3 % (42.8-82.8); PLATELET COUNT 214 10^3/uL (134-434); RBC 4.36 M/mm3 (4.00-5.60); RDW 14.5 % (11.9-15.9); WHITE BLOOD COUNT 2.3 K/mm3 (4.0-10.0)
[2021-05-20] MEDS ORDERED: ALBUTEROL SO4 2.5/IPRATROPIUM 0.5 INH SOL 3 ML VIAL.NEB. NEB SCH (12:00)
[2021-05-20] MEDS ORDERED: ACETAMINOPHEN 1000 MG/100 ML BAG IVPB ONE (13:38)
[2021-05-20] MEDS: oxyCODONE HCL 5 MG TABLET PO SCH ×2 (14:02→21:16)
[2021-05-20 14:31] LABS: ALBUMIN 3.1 g/dl (3.4-5.0); BLOOD UREA NITROGEN 9.6 mg/dL (7-18); CALCIUM 8.4 mg/dL (8.5-10.1); MAGNESIUM 2.1 mg/dL (1.8-2.4)
[2021-05-20 14:33] LABS: PHOSPHOROUS 2.7 mg/dL (2.5-4.9)
[2021-05-20 14:34] LABS: BILIRUBIN,TOTAL 0.4 mg/dL (0.2-1)
[2021-05-20 14:35] LABS: CREATININE 0.7 mg/dL (0.55-1.3); TOT PROT 6.5 g/dl (6.4-8.2)
[2021-05-20 14:53] VITALS: BMI 14.8
[2021-05-20] MEDS: TIOTROPIUM BROMIDE 2.5 MCG (SPIRIVA) RESPIMAT INHALER IH SCH (15:54)
[2021-05-20] MEDS: METHYL SALICYLATE/MENTHOL OINT 30 GM TUBE TP SCH (15:54)
[2021-05-20] MEDS: ALBUTEROL SO4 HFA INHALER IH SCH ×2 (15:54→21:15)
[2021-05-20] MEDS: REMDESIVIR 100 MG in SODIUM CHLORIDE 250 ML IVPB SCH (17:09)
[2021-05-21] MEDS: oxyCODONE HCL 5 MG TABLET PO SCH ×3 (05:35→22:18)
[2021-05-21] MEDS: ALBUTEROL SO4 HFA INHALER IH SCH ×4 (08:00→22:19)
[2021-05-21 11:06] LABS: BASO % 0.2 % (0-2.0); HEMATOCRIT 35.4 % (35.4-49); HEMOGLOBIN 11.6 GM/dL (11.7-16.9); LYMPH % 18.3 % (8-40); MCH 26.4 pg (25.7-33.7); MCHC 32.7 g/dl (32.0-35.9); MEAN CELL VOLUME 80.8 fl (80-96); MEAN PLT VOLUME 8.8 fl (7.5-11.1); MONO % 8.8 % (3.8-10.2); NEUT % 72.7 % (42.8-82.8); PLATELET COUNT 258 10^3/uL (134-434); RBC 4.38 M/mm3 (4.00-5.60); RDW 14.7 % (11.9-15.9); WHITE BLOOD COUNT 3.8 K/mm3 (4.0-10.0)
[2021-05-21] MEDS ORDERED: ACETAMINOPHEN 325 MG TABLET (FP) PO PRN (11:20)
[2021-05-21 11:35] LABS: ALBUMIN 3.1 g/dl (3.4-5.0); BLOOD UREA NITROGEN 10.4 mg/dL (7-18); CALCIUM 8.9 mg/dL (8.5-10.1)
[2021-05-21 11:36] LABS: MAGNESIUM 2.1 mg/dL (1.8-2.4)
[2021-05-21] MEDS ORDERED: BENZOCAINE/MENTH/CETYLPYRD CL 1 EACH LOZENGE MM PRN (11:36)
[2021-05-21] MEDS ORDERED: DOCUSATE SODIUM 100 MG CAPSULE (FP) PO ONE (11:36)
[2021-05-21 11:38] LABS: CREATININE 0.7 mg/dL (0.55-1.3); PHOSPHOROUS 3.1 mg/dL (2.5-4.9)
[2021-05-21 11:40] LABS: BILIRUBIN,TOTAL 0.3 mg/dL (0.2-1); TOT PROT 6.8 g/dl (6.4-8.2)
[2021-05-21] MEDS: METHYL SALICYLATE/MENTHOL OINT 30 GM TUBE TP SCH (11:47)
[2021-05-21] MEDS: DEXAMETHASONE SOD PHOSPHATE 4 MG/1 ML VIAL IVPUSH SCH (11:47)
[2021-05-21] MEDS: ENOXAPARIN NA (PORCINE) 40 MG/0.4 ML DISP.SYRIN SQ SCH (11:47)
[2021-05-21] MEDS: TIOTROPIUM BROMIDE 2.5 MCG (SPIRIVA) RESPIMAT INHALER IH SCH (11:48)
[2021-05-21] MEDS: BUDESONIDE/FORMETEROL FUMARATE 160/4.5 mcg INHALER IH SCH ×2 (11:51→22:19)
[2021-05-21] MEDS: REMDESIVIR 100 MG in SODIUM CHLORIDE 250 ML IVPB SCH (11:53)
[2021-05-21] MEDS: SENNOSIDES 8.6MG TABLET (FP) PO SCH (22:18)
[2021-05-22] MEDS: oxyCODONE HCL 5 MG TABLET PO SCH ×3 (05:17→21:01)
[2021-05-22] MEDS: ALBUTEROL SO4 HFA INHALER IH SCH ×4 (08:07→21:01)
[2021-05-22 10:02] LABS: HEMATOCRIT 36.7 % (35.4-49); HEMOGLOBIN 11.7 GM/dL (11.7-16.9); MCH 25.9 pg (25.7-33.7); MCHC 31.8 g/dl (32.0-35.9); MEAN CELL VOLUME 81.3 fl (80-96); PLATELET COUNT 287 10^3/uL (134-434); RBC 4.51 M/mm3 (4.00-5.60); RDW 14.9 % (11.9-15.9); WHITE BLOOD COUNT 4.9 K/mm3 (4.0-10.0)
[2021-05-22] MEDS: PANTOPRAZOLE 40 MG TABLET PO SCH (10:18)
[2021-05-22 10:21] LABS: BLOOD UREA NITROGEN 14.9 mg/dL (7-18); CALCIUM 8.8 mg/dL (8.5-10.1)
[2021-05-22] MEDS: REMDESIVIR 100 MG in SODIUM CHLORIDE 250 ML IVPB SCH ×2 (10:23→16:03)
[2021-05-22] MEDS: TIOTROPIUM BROMIDE 2.5 MCG (SPIRIVA) RESPIMAT INHALER IH SCH (10:23)
[2021-05-22] MEDS: BUDESONIDE/FORMETEROL FUMARATE 160/4.5 mcg INHALER IH SCH ×2 (10:23→21:04)
[2021-05-22] MEDS: DEXAMETHASONE SOD PHOSPHATE 4 MG/1 ML VIAL IVPUSH SCH ×2 (10:23→16:03)
[2021-05-22 10:24] LABS: PHOSPHOROUS 2.9 mg/dL (2.5-4.9)
[2021-05-22 10:25] LABS: CREATININE 0.8 mg/dL (0.55-1.3)
[2021-05-22] MEDS: METHYL SALICYLATE/MENTHOL OINT 30 GM TUBE TP SCH (10:26)
[2021-05-22] MEDS: ENOXAPARIN NA (PORCINE) 40 MG/0.4 ML DISP.SYRIN SQ SCH (10:26)
[2021-05-22] MEDS: SENNOSIDES 8.6MG TABLET (FP) PO SCH (21:01)
[2021-05-23] MEDS ORDERED: MELATONIN 5 MG TABLETS PO ONE (01:56)
[2021-05-23] MEDS: oxyCODONE HCL 5 MG TABLET PO SCH ×3 (05:45→21:13)
[2021-05-23] MEDS: DEXAMETHASONE SOD PHOSPHATE 4 MG/1 ML VIAL IVPUSH SCH (11:39)
[2021-05-23] MEDS: TIOTROPIUM BROMIDE 2.5 MCG (SPIRIVA) RESPIMAT INHALER IH SCH (11:39)
[2021-05-23] MEDS: BUDESONIDE/FORMETEROL FUMARATE 160/4.5 mcg INHALER IH SCH ×2 (11:39→21:14)
[2021-05-23] MEDS: REMDESIVIR 100 MG in SODIUM CHLORIDE 250 ML IVPB SCH (11:39)
[2021-05-23] MEDS: PANTOPRAZOLE 40 MG TABLET PO SCH (11:39)
[2021-05-23] MEDS: METHYL SALICYLATE/MENTHOL OINT 30 GM TUBE TP SCH ×2 (11:40→12:40)
[2021-05-23] MEDS: ALBUTEROL SO4 HFA INHALER IH SCH ×4 (11:40→21:14)
[2021-05-23 12:33] LABS: BASO % 0.6 % (0-2.0); EOS % 0.1 % (0-4.5); HEMATOCRIT 36.5 % (35.4-49); HEMOGLOBIN 11.6 GM/dL (11.7-16.9); LYMPH % 16.3 % (8-40); MCH 25.7 pg (25.7-33.7); MCHC 31.7 g/dl (32.0-35.9); MEAN CELL VOLUME 81.1 fl (80-96); MEAN PLT VOLUME 9.1 fl (7.5-11.1); PLATELET COUNT 284 10^3/uL (134-434); RBC 4.49 M/mm3 (4.00-5.60); RDW 14.6 % (11.9-15.9); WHITE BLOOD COUNT 6.3 K/mm3 (4.0-10.0)
[2021-05-23 12:58] LABS: BLOOD UREA NITROGEN 18.7 mg/dL (7-18)
[2021-05-23 13:00] LABS: CREATININE 0.8 mg/dL (0.55-1.3)
[2021-05-23 13:02] LABS: TOT PROT 6.3 g/dl (6.4-8.2)
[2021-05-23 13:03] LABS: BILIRUBIN,TOTAL 0.2 mg/dL (0.2-1)
[2021-05-23] MEDS: ENOXAPARIN NA (PORCINE) 40 MG/0.4 ML DISP.SYRIN SQ SCH (13:19)
[2021-05-23] MEDS: SENNOSIDES 8.6MG TABLET (FP) PO SCH (21:13)
[2021-05-23] MEDS ORDERED: MELATONIN 5 MG TABLETS PO PRN (23:23)
[2021-05-24] MEDS: oxyCODONE HCL 5 MG TABLET PO SCH ×2 (06:17→14:14)
[2021-05-24] MEDS: ALBUTEROL SO4 HFA INHALER IH SCH ×3 (10:48→15:36)
[2021-05-24] MEDS: METHYL SALICYLATE/MENTHOL OINT 30 GM TUBE TP SCH (10:48)
[2021-05-24] MEDS: TIOTROPIUM BROMIDE 2.5 MCG (SPIRIVA) RESPIMAT INHALER IH SCH (10:49)
[2021-05-24] MEDS: DEXAMETHASONE SOD PHOSPHATE 4 MG/1 ML VIAL IVPUSH SCH (10:49)
[2021-05-24] MEDS: BUDESONIDE/FORMETEROL FUMARATE 160/4.5 mcg INHALER IH SCH (10:49)
[2021-05-24] MEDS: PANTOPRAZOLE 40 MG TABLET PO SCH (10:49)
[2021-05-24] MEDS: ENOXAPARIN NA (PORCINE) 40 MG/0.4 ML DISP.SYRIN SQ SCH (10:49)
[2021-05-24 15:17] VITALS: BP 110/59; PULSE 63; TEMP 97.9
== END 2021-05-24 17:48 | disposition home or self-care (01) | DRG 177 ==
LOC: JER 12:04 → JERBED 13:26 → J5S 21:14
PROVIDERS: ADMIT Internal Medicine; ATTEND Internal Medicine
PROC: 3E0333Z Introduction of Anti-inflammatory into Peripheral Vein, Percutaneous Approach (ICD-10-PCS; 2021-05-19)
PROC: XW033E5 Introduction of Remdesivir Anti-infective into Peripheral Vein, Percutaneous Approach, New Technology Group 5 (ICD-10-PCS; 2021-05-19)
PROC: 05HC33Z Insertion of Infusion Device into Left Basilic Vein, Percutaneous Approach (ICD-10-PCS; principal; 2021-05-22)
DX: U07.1 COVID-19 (principal); J12.82 Pneumonia due to coronavirus disease 2019; J44.1 Chronic obstructive pulmonary disease with (acute) exacerbation; R64 Cachexia; Z68.1 Body mass index [BMI] 19.9 or less, adult; J96.11 Chronic respiratory failure with hypoxia; D72.819 Decreased white blood cell count, unspecified; B19.20 Unspecified viral hepatitis C without hepatic coma; M54.50 Low back pain, unspecified; Z99.81 Dependence on supplemental oxygen; M19.90 Unspecified osteoarthritis, unspecified site
CPT/HCPCS: 36415; 71045-TC-FY; 80048; 80053; 82550; 82728; 82803; 83615; 83735; 84100; 84484; 85025; 85027; 85379; 85610; 85730; 86140; 87070; 87077; 87205; 87804; 93005; 93010; 97116-GP; 97162-GP; 99285-25; C9399; C9803; J0131; U0003; U0005

== ENCOUNTER 2021-08-08 19:57 | Inpatient (IN) | payer MEDICARE, OTHER ==
[2021-08-08] MEDS ORDERED: morphine SULFATE 4 MG/ML VIAL IVPUSH ONE (21:15)
[2021-08-08] MEDS ORDERED: ONDANSETRON 4 MG/2 ML VIAL IVPUSH ONE (21:15)
[2021-08-08] MEDS ORDERED: SODIUM CHLORIDE 0.9% 500 ML INFUS.BAG IV ONE (21:20)
[2021-08-08] MEDS ORDERED: morphine SULFATE 4 MG/ML VIAL ONE (21:20)
[2021-08-08] MEDS ORDERED: ONDANSETRON 4 MG/2 ML VIAL ONE (21:20)
[2021-08-08 22:29] LABS: BASO % 0.4 % (0-2.0); EOS % 0.4 % (0-4.5); HEMATOCRIT 37.9 % (35.4-49); HEMOGLOBIN 12.2 GM/dL (11.7-16.9); LYMPH % 8.4 % (8-40); MCH 27.2 pg (25.7-33.7); MCHC 32.1 g/dl (32.0-35.9); MEAN CELL VOLUME 84.8 fl (80-96); MEAN PLT VOLUME 8.9 fl (7.5-11.1); MONO % 6.5 % (3.8-10.2); NEUT % 84.3 % (42.8-82.8); PLATELET COUNT 252 10^3/uL (134-434); RBC 4.47 M/mm3 (4.00-5.60); RDW 15.7 % (11.9-15.9); WHITE BLOOD COUNT 9.9 K/mm3 (4.0-10.0)
[2021-08-08 22:50] LABS: BLOOD UREA NITROGEN 10.5 mg/dL (7-18); CALCIUM 9.6 mg/dL (8.5-10.1)
[2021-08-08 22:53] LABS: CREATININE 0.9 mg/dL (0.55-1.3)
[2021-08-08 22:55] LABS: BILIRUBIN,TOTAL 0.4 mg/dL (0.2-1); TOT PROT 7.2 g/dl (6.4-8.2)
[2021-08-08 23:05] LABS: ACTIVATED PTT 24.6 SECONDS (25.2-36.5); INR 1.14 (0.83-1.09); PROTHROMBIN TIME (PATIENT) 13.1 SEC (9.7-13.0)
[2021-08-09] MEDS ORDERED: morphine SULFATE 4 MG/ML VIAL ONE (01:05)
[2021-08-09] MEDS ORDERED: LIDOCAINE HCL 2% JELLY 10 ML CARTRIDGE ONE ×2 (01:09→04:56)
[2021-08-09] MEDS ORDERED: morphine SULFATE 4 MG/ML VIAL IVPUSH ONE ×2 (01:21→03:57)
[2021-08-09] MEDS ORDERED: HYDROmorphone HCL CARPU-JECT 2 MG/1 ML DISP.SYRIN IVPUSH ONE (03:37)
[2021-08-09] MEDS ORDERED: HYDROmorphone HCl 2 MG/ML VIAL ONE (03:40)
[2021-08-09] MEDS ORDERED: LACTATED RINGERS SOLUTION 1,000 ML/1,000 ML INFUS.BAG IV STA (04:26)
[2021-08-09] MEDS ORDERED: KETOROLAC TROMETHAMINE 15 MG/ML VIAL IVPUSH PRN (04:28)
[2021-08-09] MEDS ORDERED: ACETAMINOPHEN 1000 MG/100 ML BAG IVPB PRN ×2 (04:28→05:38)
[2021-08-09 05:19] LABS: EPI CELLS 5 /uL (0-25.1); HYALINE CASTS 1 /uL (0-3.1); PH,URINE 8.5 (5.0-8.0); URINE APPEARANCE CLEAR; URINE BACTERIA 8 /uL (0-1359); URINE BILIRUBIN NEGATIVE (NEGATIVE); URINE COLOR YELLOW; URINE GLUCOSE (UA) NEGATIVE (NEGATIVE); URINE KETONE 1+ (NEGATIVE); URINE LEUK ESTERASE NEGATIVE (NEGATIVE); URINE NITRITE NEGATIVE (NEGATIVE); URINE PROTEIN NEGATIVE (NEGATIVE); URINE RBC 13 /uL (0-23.9); URINE UROBILINOGEN 0.2 mg/dL (0.2-1.0); URINE WBC 8 /uL (0-25.8)
[2021-08-09] MEDS ORDERED: ALBUTEROL SO4 HFA INHALER IH PRN (07:30)
[2021-08-09] MEDS: LACTATED RINGERS SOLUTION 1,000 ML/1,000 ML INFUS.BAG IV SCH ×2 (07:41→23:18)
[2021-08-09] MEDS ORDERED: KETOROLAC TROMETHAMINE 15 MG/ML VIAL ONE (07:42)
[2021-08-09] MEDS ORDERED: ENOXAPARIN NA (PORCINE) 40 MG/0.4 ML DISP.SYRIN SQ ONE (09:25)
[2021-08-09] MEDS ORDERED: POLYETHYLENE GLYCOL (HEALTHYLAX) 3350 17 GM PACKET ONE (09:25)
[2021-08-09] MEDS: ENOXAPARIN NA (PORCINE) 40 MG/0.4 ML DISP.SYRIN SQ SCH (09:40)
[2021-08-09] MEDS: POLYETHYLENE GLYCOL (HEALTHYLAX) 3350 17 GM PACKET PO SCH ×4 (09:40→22:27)
[2021-08-09] MEDS ORDERED: Methylnaltrexone Bromide 12 MG/0.6 ML KIT SQ SCH (10:00)
[2021-08-09] MEDS ORDERED: POLYETHYLENE GLYCOL (HEALTHYLAX) 3350 17 GM PACKET PO SCH (10:00)
[2021-08-09] MEDS: BUDESONIDE/FORMETEROL FUMARATE 160/4.5 mcg INHALER IH SCH ×2 (11:44→22:15)
[2021-08-09] MEDS: KETOROLAC TROMETHAMINE 30 MG/1 ML VIAL IVPUSH PRN ×2 (16:06→22:20)
[2021-08-10] MEDS ORDERED: MELATONIN 5 MG TABLETS PO ONE (03:43)
[2021-08-10] MEDS: LACTATED RINGERS SOLUTION 1,000 ML/1,000 ML INFUS.BAG IV SCH ×2 (06:19→13:47)
[2021-08-10] MEDS: KETOROLAC TROMETHAMINE 30 MG/1 ML VIAL IVPUSH PRN (06:20)
[2021-08-10] MEDS: POLYETHYLENE GLYCOL (HEALTHYLAX) 3350 17 GM PACKET PO SCH ×3 (06:20→21:15)
[2021-08-10] MEDS: ACETAMINOPHEN 500 MG TABLET (FP) PO SCH ×3 (08:52→21:13)
[2021-08-10 09:00] LABS: BASO % 0.3 % (0-2.0); EOS % 1.5 % (0-4.5); HEMATOCRIT 32.5 % (35.4-49); HEMOGLOBIN 10.5 GM/dL (11.7-16.9); LYMPH % 27.9 % (8-40); MCH 27.2 pg (25.7-33.7); MCHC 32.1 g/dl (32.0-35.9); MEAN CELL VOLUME 84.7 fl (80-96); MEAN PLT VOLUME 8.2 fl (7.5-11.1); MONO % 10.4 % (3.8-10.2); NEUT % 59.9 % (42.8-82.8); PLATELET COUNT 188 10^3/uL (134-434); RBC 3.84 M/mm3 (4.00-5.60); RDW 15.9 % (11.9-15.9); WHITE BLOOD COUNT 4.9 K/mm3 (4.0-10.0)
[2021-08-10 09:28] LABS: CREATININE 0.8 mg/dL (0.55-1.3)
[2021-08-10 09:30] LABS: BILIRUBIN,TOTAL 0.7 mg/dL (0.2-1); TOT PROT 5.6 g/dl (6.4-8.2)
[2021-08-10 09:33] LABS: BLOOD UREA NITROGEN 10.1 mg/dL (7-18); CALCIUM 8.4 mg/dL (8.5-10.1)
[2021-08-10 09:37] LABS: MAGNESIUM 2.6 mg/dL (1.8-2.4)
[2021-08-10 09:42] LABS: ALBUMIN 3.1 g/dl (3.4-5.0)
[2021-08-10] MEDS: LIDOCAINE 5% TOPICAL PATCH TP SCH (10:02)
[2021-08-10] MEDS: BUDESONIDE/FORMETEROL FUMARATE 160/4.5 mcg INHALER IH SCH ×2 (10:06→21:16)
[2021-08-10] MEDS: ENOXAPARIN NA (PORCINE) 40 MG/0.4 ML DISP.SYRIN SQ SCH (11:01)
[2021-08-10] MEDS: GABAPENTIN 300 MG CAPSULE PO SCH ×2 (13:41→21:15)
[2021-08-10] MEDS: LIDOCAINE PATCH REMOVAL MC SCH (21:21)
[2021-08-11] MEDS: LACTATED RINGERS SOLUTION 1,000 ML/1,000 ML INFUS.BAG IV SCH (06:00)
[2021-08-11] MEDS: ACETAMINOPHEN 500 MG TABLET (FP) PO SCH ×3 (06:04→22:06)
[2021-08-11] MEDS: GABAPENTIN 300 MG CAPSULE PO SCH ×3 (06:06→22:06)
[2021-08-11] MEDS: POLYETHYLENE GLYCOL (HEALTHYLAX) 3350 17 GM PACKET PO SCH ×3 (06:07→22:06)
[2021-08-11 09:04] LABS: BASO % 0.5 % (0-2.0); EOS % 1.9 % (0-4.5); HEMATOCRIT 33.9 % (35.4-49); HEMOGLOBIN 11.1 GM/dL (11.7-16.9); MCH 27.4 pg (25.7-33.7); MCHC 32.7 g/dl (32.0-35.9); MEAN PLT VOLUME 8.6 fl (7.5-11.1); NEUT % 64.6 % (42.8-82.8); PLATELET COUNT 206 10^3/uL (134-434); RBC 4.03 M/mm3 (4.00-5.60); RDW 15.8 % (11.9-15.9); WHITE BLOOD COUNT 5.6 K/mm3 (4.0-10.0)
[2021-08-11 09:23] LABS: CALCIUM 8.5 mg/dL (8.5-10.1)
[2021-08-11 09:24] LABS: ALBUMIN 2.9 g/dl (3.4-5.0); BLOOD UREA NITROGEN 8.4 mg/dL (7-18); MAGNESIUM 2.3 mg/dL (1.8-2.4)
[2021-08-11 09:27] LABS: CREATININE 0.7 mg/dL (0.55-1.3)
[2021-08-11 09:28] LABS: BILIRUBIN,TOTAL 0.4 mg/dL (0.2-1); TOT PROT 5.6 g/dl (6.4-8.2)
[2021-08-11] MEDS ORDERED: Methylnaltrexone Bromide 12 MG/0.6 ML KIT SQ SCH (10:00)
[2021-08-11] MEDS: ENOXAPARIN NA (PORCINE) 40 MG/0.4 ML DISP.SYRIN SQ SCH (10:20)
[2021-08-11] MEDS: LIDOCAINE 5% TOPICAL PATCH TP SCH (10:20)
[2021-08-11] MEDS: BUDESONIDE/FORMETEROL FUMARATE 160/4.5 mcg INHALER IH SCH ×2 (10:21→22:06)
[2021-08-11] MEDS: SENNOSIDES 8.6MG TABLET (FP) PO SCH (22:06)
[2021-08-11] MEDS: LIDOCAINE PATCH REMOVAL MC SCH (22:06)
[2021-08-11 23:57] VITALS: BMI 15.6
[2021-08-12] MEDS: POLYETHYLENE GLYCOL (HEALTHYLAX) 3350 17 GM PACKET PO SCH ×3 (06:42→21:09)
[2021-08-12] MEDS: ACETAMINOPHEN 500 MG TABLET (FP) PO SCH ×3 (06:43→21:09)
[2021-08-12] MEDS: GABAPENTIN 300 MG CAPSULE PO SCH ×3 (06:43→21:09)
[2021-08-12 09:12] LABS: BASO % 0.7 % (0-2.0); EOS % 2.8 % (0-4.5); HEMATOCRIT 35.9 % (35.4-49); HEMOGLOBIN 11.8 GM/dL (11.7-16.9); LYMPH % 25.2 % (8-40); MCH 27.4 pg (25.7-33.7); MCHC 32.8 g/dl (32.0-35.9); MEAN CELL VOLUME 83.4 fl (80-96); MEAN PLT VOLUME 8.7 fl (7.5-11.1); MONO % 10.5 % (3.8-10.2); NEUT % 60.8 % (42.8-82.8); PLATELET COUNT 229 10^3/uL (134-434); RDW 15.7 % (11.9-15.9)
[2021-08-12 09:36] LABS: ALBUMIN 2.8 g/dl (3.4-5.0); BLOOD UREA NITROGEN 7.7 mg/dL (7-18); CALCIUM 8.4 mg/dL (8.5-10.1)
[2021-08-12 09:39] LABS: CREATININE 0.7 mg/dL (0.55-1.3)
[2021-08-12 09:40] LABS: BILIRUBIN,TOTAL 0.4 mg/dL (0.2-1); TOT PROT 5.8 g/dl (6.4-8.2)
[2021-08-12] MEDS: BUDESONIDE/FORMETEROL FUMARATE 160/4.5 mcg INHALER IH SCH ×2 (10:40→21:09)
[2021-08-12] MEDS: LIDOCAINE 5% TOPICAL PATCH TP SCH (11:21)
[2021-08-12] MEDS: ENOXAPARIN NA (PORCINE) 40 MG/0.4 ML DISP.SYRIN SQ SCH (11:21)
[2021-08-12] MEDS: LIDOCAINE PATCH REMOVAL MC SCH (21:09)
[2021-08-12] MEDS: SENNOSIDES 8.6MG TABLET (FP) PO SCH (21:09)
[2021-08-12 23:07] LABS: FIBROSIS SCORE. 0.52 (0.00-0.21); HCV ALPHA 2 MACRO CHART 278 mg/dL (110-276); NECRO.INFLAM ACT.SCORE 0.03 (0.00-0.17); NECROINFLAM. ACTIVITY GRADE A0-No activity (.)
[2021-08-13] MEDS: ACETAMINOPHEN 500 MG TABLET (FP) PO SCH ×2 (06:49→13:49)
[2021-08-13] MEDS: GABAPENTIN 300 MG CAPSULE PO SCH ×2 (06:50→13:49)
[2021-08-13] MEDS: POLYETHYLENE GLYCOL (HEALTHYLAX) 3350 17 GM PACKET PO SCH ×2 (06:50→13:49)
[2021-08-13 10:22] LABS: BASO % 0.6 % (0-2.0); HEMATOCRIT 36.8 % (35.4-49); HEMOGLOBIN 11.8 GM/dL (11.7-16.9); LYMPH % 25.9 % (8-40); MCH 26.8 pg (25.7-33.7); MEAN CELL VOLUME 83.8 fl (80-96); MONO % 8.6 % (3.8-10.2); NEUT % 62.9 % (42.8-82.8); PLATELET COUNT 237 10^3/uL (134-434); RDW 15.7 % (11.9-15.9); WHITE BLOOD COUNT 5.3 K/mm3 (4.0-10.0)
[2021-08-13] MEDS: ENOXAPARIN NA (PORCINE) 40 MG/0.4 ML DISP.SYRIN SQ SCH (10:47)
[2021-08-13] MEDS: LIDOCAINE 5% TOPICAL PATCH TP SCH (10:47)
[2021-08-13 10:51] LABS: CALCIUM 8.1 mg/dL (8.5-10.1)
[2021-08-13] MEDS: BUDESONIDE/FORMETEROL FUMARATE 160/4.5 mcg INHALER IH SCH (10:51)
[2021-08-13 10:52] LABS: ALBUMIN 2.7 g/dl (3.4-5.0); BLOOD UREA NITROGEN 11.6 mg/dL (7-18); MAGNESIUM 1.9 mg/dL (1.8-2.4)
[2021-08-13 10:54] LABS: CREATININE 0.8 mg/dL (0.55-1.3)
[2021-08-13 10:55] LABS: BILIRUBIN,TOTAL 0.2 mg/dL (0.2-1)
[2021-08-13 10:56] LABS: TOT PROT 5.9 g/dl (6.4-8.2)
[2021-08-13 13:45] VITALS: BP 106/54; PULSE 87; TEMP 95.8
== END 2021-08-13 19:01 | disposition home health service (06) | DRG 391 ==
LOC: JER 19:57 → JERBED 08-09 02:38 → INTOOBSV 08-09 02:38 → UNDOADMOB 08-09 02:38 → JERBED 08-09 07:33 → J6S 08-09 12:57 → OBSVTOIN 08-11 13:37
PROVIDERS: ADMIT Hospitalist; ATTEND Nurse Practitioner Acute Care
DX: K59.03 Drug induced constipation (principal); E43 Unspecified severe protein-calorie malnutrition; K56.0 Paralytic ileus; R64 Cachexia; Z68.1 Body mass index [BMI] 19.9 or less, adult; J43.9 Emphysema, unspecified; E86.0 Dehydration; R11.2 Nausea with vomiting, unspecified; F17.210 Nicotine dependence, cigarettes, uncomplicated; R14.0 Abdominal distension (gaseous); G89.29 Other chronic pain; M54.50 Low back pain, unspecified; M48.00 Spinal stenosis, site unspecified; F11.90 Opioid use, unspecified, uncomplicated; K66.0 Peritoneal adhesions (postprocedural) (postinfection); R10.31 Right lower quadrant pain
CPT/HCPCS: 36415; 74018-TC-FY; 74176-TC; 74177-TC; 80053; 81003; 82105; 82172; 82550; 82553; 82728; 82977; 83010; 83516; 83605; 83690; 83735; 83883; 84460; 84484; 85025; 85610; 85730; 86038; 86140; 86704; 86708; 86850; 86900; 86901; 87086; 87340; 87517; 87522; 87902; 93005; 93010; 97116-GP; 97162-GP; 99285-25; C9803-CS; G0378; U0003; U0005

== ENCOUNTER 2022-03-07 10:36 | Observation (INO) | payer MEDICARE, OTHER ==
[2022-03-07] MEDS ORDERED: SODIUM CHLORIDE 0.9% 500 ML INFUS.BAG IV ONE (10:59)
[2022-03-07 11:01] VITALS: BMI 15.7
[2022-03-07] MEDS ORDERED: ALBUTEROL SO4 2.5/IPRATROPIUM 0.5 INH SOL 3 ML VIAL.NEB. NEB ONE ×2 (12:01→12:59)
[2022-03-07] MEDS ORDERED: methylPREDNISolone NA SUCC 125 MG/2 ML VIAL IVPUSH ONE (12:01)
[2022-03-07 14:02] LABS: EPI CELLS 4 /uL (0-25.1); HYALINE CASTS 0 /uL (0-3.1); URINE APPEARANCE CLEAR; URINE BACTERIA 14 /uL (0-1359); URINE BILIRUBIN NEGATIVE (NEGATIVE); URINE COLOR YELLOW; URINE GLUCOSE (UA) NEGATIVE (NEGATIVE); URINE KETONE TRACE (NEGATIVE); URINE LEUK ESTERASE 1+ (NEGATIVE); URINE NITRITE NEGATIVE (NEGATIVE); URINE PROTEIN NEGATIVE (NEGATIVE); URINE RBC 24 /uL (0-23.9); URINE UROBILINOGEN 0.2 mg/dL (0.2-1.0); URINE WBC 19 /uL (0-25.8)
[2022-03-07 14:23] LABS: BASO % 0.6 % (0-2.0); HEMATOCRIT 41.4 % (35.4-49); HEMOGLOBIN 13.2 GM/dL (11.7-16.9); MCH 26.3 pg (25.7-33.7); MCHC 31.9 g/dl (32.0-35.9); MEAN CELL VOLUME 82.5 fl (80-96); MEAN PLT VOLUME 8.8 fl (7.5-11.1); MONO % 9.4 % (3.8-10.2); PLATELET COUNT 280 10^3/uL (134-434); RBC 5.01 M/mm3 (4.00-5.60); RDW 14.8 % (11.9-15.9); WHITE BLOOD COUNT 5.3 K/mm3 (4.0-10.0)
[2022-03-07 14:44] LABS: ALBUMIN 3.7 g/dl (3.4-5.0); BLOOD UREA NITROGEN 14.4 mg/dL (7-18); MAGNESIUM 2.8 mg/dL (1.8-2.4)
[2022-03-07 14:47] LABS: CREATININE 0.8 mg/dL (0.55-1.3)
[2022-03-07 14:49] LABS: BILIRUBIN,TOTAL 0.4 mg/dL (0.2-1); TOT PROT 7.9 g/dl (6.4-8.2)
[2022-03-07] MEDS ORDERED: methylPREDNISolone NA SUCC 125 MG/2 ML VIAL ONE (15:16)
[2022-03-07] MEDS ORDERED: ACETAMINOPHEN 325 MG TABLET (FP) PO PRN (15:39)
[2022-03-07] MEDS ORDERED: ALBUTEROL SO4 HFA INHALER IH PRN (15:41)
[2022-03-07] MEDS ORDERED: ALBUTEROL SO4 2.5/IPRATROPIUM 0.5 INH SOL 3 ML VIAL.NEB. NEB SCH (16:00)
[2022-03-07] MEDS ORDERED: REMDESIVIR 200 MG in SODIUM CHLORIDE 250 ML IVPB ONE ×2 (16:15→17:00)
[2022-03-07] MEDS ORDERED: methylPREDNISolone NA SUCC 40 MG/1 ML VIAL ONE (17:56)
[2022-03-07] MEDS ORDERED: AZITHROMYCIN IVPB 500 MG/250 ML BAG IVPB ONE (17:56)
[2022-03-07] MEDS: AZITHROMYCIN IVPB 500 MG/250 ML BAG IVPB SCH (18:00)
[2022-03-07] MEDS: methylPREDNISolone NA SUCC 40 MG/1 ML VIAL IVPUSH SCH (19:25)
[2022-03-07] MEDS ORDERED: oxyCODONE HCL 5 MG TABLET PO ONE (20:18)
[2022-03-07] MEDS ORDERED: oxyCODONE HCL 5 MG TABLET ONE (21:28)
[2022-03-08] MEDS ORDERED: methylPREDNISolone NA SUCC 40 MG/1 ML VIAL ONE ×2 (01:03→10:26)
[2022-03-08] MEDS: BUDESONIDE/FORMETEROL FUMARATE 160/4.5 mcg INHALER IH SCH ×2 (02:25→11:27)
[2022-03-08] MEDS: methylPREDNISolone NA SUCC 40 MG/1 ML VIAL IVPUSH SCH ×2 (02:25→11:27)
[2022-03-08] MEDS: GABAPENTIN 300 MG CAPSULE PO SCH ×3 (02:25→13:47)
[2022-03-08] MEDS ORDERED: GABAPENTIN 300 MG CAPSULE ONE ×2 (06:07→13:39)
[2022-03-08] MEDS ORDERED: ENOXAPARIN NA (PORCINE) 40 MG/0.4 ML DISP.SYRIN SQ SCH (10:00)
[2022-03-08] MEDS ORDERED: ALBUTEROL SO4 HFA INHALER IH ONE (10:25)
[2022-03-08] MEDS ORDERED: ENOXAPARIN NA (PORCINE) 40 MG/0.4 ML DISP.SYRIN SQ ONE (10:26)
[2022-03-08] MEDS ORDERED: AZITHROMYCIN IVPB 500 MG/250 ML BAG IVPB ONE (10:26)
[2022-03-08] MEDS: AZITHROMYCIN IVPB 500 MG/250 ML BAG IVPB SCH (11:27)
[2022-03-08 15:14] VITALS: BP 130/84; PULSE 100; RESP 21; TEMP 97.5
== END 2022-03-08 15:17 | disposition home or self-care (01) ==
LOC: JER 10:36 → JERBED 14:17
PROVIDERS: ADMIT Internal Medicine; ATTEND Internal Medicine
PROC: 3E0F7GC Introduction of Other Therapeutic Substance into Respiratory Tract, Via Natural or Artificial Opening (ICD-10-PCS; principal; 2022-03-07)
PROC: 3E0337Z Introduction of Electrolytic and Water Balance Substance into Peripheral Vein, Percutaneous Approach (ICD-10-PCS; 2022-03-07)
PROC: 3E033GC Introduction of Other Therapeutic Substance into Peripheral Vein, Percutaneous Approach (ICD-10-PCS; 2022-03-07)
DX: J96.01 Acute respiratory failure with hypoxia (principal); J44.1 Chronic obstructive pulmonary disease with (acute) exacerbation; R00.2 Palpitations; K56.699 Other intestinal obstruction unspecified as to partial versus complete obstruction; Z87.891 Personal history of nicotine dependence; B19.20 Unspecified viral hepatitis C without hepatic coma; U07.1 COVID-19
CPT/HCPCS: 0241U-QW; 36415; 71045-TC-FY; 80053; 81003; 82728; 83615; 83735; 84132; 84436; 84443; 84484; 85025; 85379; 86140; 87086; 93005; 93010; 94640; 96365; 96367; 96372; 96376; 99285-25; C9399; G0378

== ENCOUNTER 2023-04-16 02:59 | Inpatient (IN) | payer MEDICARE, OTHER ==
[2023-04-16] MEDS ORDERED: ALBUTEROL SO4 2.5/IPRATROPIUM 0.5 INH SOL 3 ML VIAL.NEB. NEB ONE ×4 (03:06→15:37)
[2023-04-16] MEDS ORDERED: methylPREDNISolone NA SUCC 125 MG/2 ML VIAL IVPUSH ONE (03:07)
[2023-04-16] MEDS ORDERED: methylPREDNISolone NA SUCC 125 MG/2 ML VIAL ONE (03:22)
[2023-04-16] MEDS ORDERED: CEFTRIAXONE 1,000 MG in DEXTROSE 5%-WATER - 50 ML IVPB ONE (04:03)
[2023-04-16] MEDS ORDERED: AZITHROMYCIN IVPB 500 MG in DEXTROSE 5%-WATER - 250 ML IVPB ONE (04:03)
[2023-04-16] MEDS ORDERED: MAGNESIUM SULFATE IN WATER 2 GM/50 ML IVPB IVPB ONE (04:03)
[2023-04-16] MEDS ORDERED: TERBUTALINE SULFATE 1 MG/1 ML VIAL SQ ONE ×2 (04:07→04:16)
[2023-04-16 04:09] LABS: BASO % 0.8 % (0-2.0); EOS % 0.5 % (0-4.5); HEMATOCRIT 37.6 % (35.4-49); HEMOGLOBIN 12.1 GM/dL (11.7-16.9); LYMPH % 18.1 % (8-40); MCH 25.8 pg (25.7-33.7); MCHC 32.2 g/dl (32.0-35.9); MEAN CELL VOLUME 80.2 fl (80-96); MEAN PLT VOLUME 7.7 fl (7.5-11.1); MONO % 10.1 % (3.8-10.2); NEUT % 70.5 % (42.8-82.8); PLATELET COUNT 252 10^3/uL (134-434); RBC 4.69 M/mm3 (4.00-5.60); RDW 15.7 % (11.9-15.9); WHITE BLOOD COUNT 8.4 K/mm3 (4.0-10.0)
[2023-04-16] MEDS ORDERED: ALBUTEROL SO4 0.083% IH SOL 2.5 MG/3 ML VIAL.NEB. NEB ONE (04:16)
[2023-04-16 04:17] LABS: INR 1.18 (0.83-1.09); PROTHROMBIN TIME (PATIENT) 13.7 SEC (9.7-13.0)
[2023-04-16 04:17] LABS: ARTERIAL BLOOD GAS BASE EXCESS -2.5 mmol/L (-2-2); ARTERIAL BLOOD GAS PO2 176.8 mmHg (80-100)
[2023-04-16] MEDS ORDERED: FOLIC ACID INJECTION - 1 MG, THIAMINE HCL 100 MG, MULTIVIT INJECTION ADULT 10 ML in SOD... IVPB ONE (04:19)
[2023-04-16 04:20] LABS: ACTIVATED PTT 32.9 SECONDS (25.2-36.5)
[2023-04-16] MEDS ORDERED: CEFTRIAXONE 1 GM/50 ML BAG ONE (04:24)
[2023-04-16 04:28] LABS: POTASSIUM 4.7 mmol/L (3.5-5.1)
[2023-04-16 04:30] LABS: CALCIUM 8.7 mg/dL (8.5-10.1)
[2023-04-16 04:31] LABS: ALBUMIN 3.7 g/dl (3.4-5.0); BLOOD UREA NITROGEN 8.7 mg/dL (7-18)
[2023-04-16 04:34] LABS: CREATININE 0.7 mg/dL (0.55-1.3)
[2023-04-16 04:35] LABS: BILIRUBIN,TOTAL 0.6 mg/dL (0.2-1); TOT PROT 7.8 g/dl (6.4-8.2)
[2023-04-16 04:38] LABS: N-TERMINAL BNP 68.3 pg/ml (5-125)
[2023-04-16] MEDS ORDERED: ALBUTEROL SO4 2.5/IPRATROPIUM 0.5 INH SOL 3 ML VIAL.NEB. NEB PRN (06:17)
[2023-04-16] MEDS ORDERED: ALBUTEROL SO4 HFA INHALER IH PRN (06:22)
[2023-04-16] MEDS ORDERED: KETOROLAC TROMETHAMINE 15 MG/ML VIAL IVPUSH PRN (06:32)
[2023-04-16] MEDS ORDERED: ACETAMINOPHEN 1000 MG/100 ML BAG IVPB PRN (06:33)
[2023-04-16] MEDS ORDERED: methylPREDNISolone NA SUCC 40 MG/1 ML VIAL IVPUSH SCH ×2 (06:45→10:00)
[2023-04-16 06:59] LABS: HEMATOCRIT 36.1 % (35.4-49); HEMOGLOBIN 11.6 GM/dL (11.7-16.9); MCH 26.3 pg (25.7-33.7); MCHC 32.2 g/dl (32.0-35.9); MEAN CELL VOLUME 81.8 fl (80-96); MEAN PLT VOLUME 8.3 fl (7.5-11.1); PLATELET COUNT 205 10^3/uL (134-434); RBC 4.41 M/mm3 (4.00-5.60); RDW 15.6 % (11.9-15.9)
[2023-04-16] MEDS ORDERED: methylPREDNISolone NA SUCC 40 MG/1 ML VIAL ONE ×3 (08:29→18:22)
[2023-04-16] MEDS ORDERED: ENOXAPARIN NA (PORCINE) 40 MG/0.4 ML DISP.SYRIN SQ ONE (08:29)
[2023-04-16] MEDS: ALBUTEROL SO4 2.5/IPRATROPIUM 0.5 INH SOL 3 ML VIAL.NEB. NEB SCH ×4 (08:37→20:47)
[2023-04-16] MEDS: ENOXAPARIN NA (PORCINE) 40 MG/0.4 ML DISP.SYRIN SQ SCH (09:00)
[2023-04-16] MEDS: POLYETHYLENE GLYCOL (HEALTHYLAX) 3350 17 GM PACKET PO SCH ×2 (09:00→21:00)
[2023-04-16] MEDS: methylPREDNISolone NA SUCC 40 MG/1 ML VIAL IVPUSH SCH ×2 (09:01→18:31)
[2023-04-16] MEDS ORDERED: FLUTICASONE/UMECLIDIN/VILANTER(200-62.5-25 TRELEGY ELLIPTA) INAHLER IH SCH (10:00)
[2023-04-16] MEDS: BUDESONIDE 0.5 MG/2 ML INH SUSP VIAL NEB SCH ×2 (10:45→20:48)
[2023-04-16 11:47] LABS: HEMATOCRIT 35.4 % (35.4-49); HEMOGLOBIN 11.3 GM/dL (11.7-16.9); MCH 25.6 pg (25.7-33.7); MCHC 31.9 g/dl (32.0-35.9); MEAN CELL VOLUME 80.2 fl (80-96); MEAN PLT VOLUME 8.1 fl (7.5-11.1); PLATELET COUNT 227 10^3/uL (134-434); RBC 4.41 M/mm3 (4.00-5.60); RDW 15.8 % (11.9-15.9); WHITE BLOOD COUNT 6.2 K/mm3 (4.0-10.0)
[2023-04-16 12:12] LABS: POTASSIUM 4.4 mmol/L (3.5-5.1)
[2023-04-16 12:15] LABS: ALBUMIN 3.2 g/dl (3.4-5.0)
[2023-04-16 12:19] LABS: CREATININE 0.7 mg/dL (0.55-1.3)
[2023-04-16 12:20] LABS: BILIRUBIN,TOTAL 0.4 mg/dL (0.2-1); TOT PROT 7.2 g/dl (6.4-8.2)
[2023-04-16 12:21] LABS: BLOOD UREA NITROGEN 8.9 mg/dL (7-18)
[2023-04-16] MEDS ORDERED: GABAPENTIN 300 MG CAPSULE ONE (15:37)
[2023-04-16] MEDS: GABAPENTIN 300 MG CAPSULE PO SCH ×2 (15:41→21:00)
[2023-04-16] MEDS: SENNOSIDES 8.6MG TABLET (FP) PO SCH (21:01)
[2023-04-17] MEDS: methylPREDNISolone NA SUCC 40 MG/1 ML VIAL IVPUSH SCH ×3 (01:07→18:09)
[2023-04-17] MEDS: GABAPENTIN 300 MG CAPSULE PO SCH ×3 (05:18→21:00)
[2023-04-17 07:22] LABS: BASO % 0.1 % (0-2.0); HEMATOCRIT 32.1 % (35.4-49); HEMOGLOBIN 10.6 GM/dL (11.7-16.9); LYMPH % 6.5 % (8-40); MCH 26.2 pg (25.7-33.7); MCHC 32.9 g/dl (32.0-35.9); MEAN CELL VOLUME 79.7 fl (80-96); MEAN PLT VOLUME 8.7 fl (7.5-11.1); MONO % 4.9 % (3.8-10.2); NEUT % 88.5 % (42.8-82.8); PLATELET COUNT 265 10^3/uL (134-434); RBC 4.03 M/mm3 (4.00-5.60); RDW 15.2 % (11.9-15.9)
[2023-04-17] MEDS: BUDESONIDE 0.5 MG/2 ML INH SUSP VIAL NEB SCH ×2 (07:30→20:00)
[2023-04-17] MEDS: ALBUTEROL SO4 2.5/IPRATROPIUM 0.5 INH SOL 3 ML VIAL.NEB. NEB SCH ×4 (07:30→20:00)
[2023-04-17 07:39] LABS: POTASSIUM 4.7 mmol/L (3.5-5.1)
[2023-04-17 07:41] LABS: ALBUMIN 3.1 g/dl (3.4-5.0); CALCIUM 8.2 mg/dL (8.5-10.1)
[2023-04-17 07:42] LABS: BLOOD UREA NITROGEN 12.8 mg/dL (7-18); MAGNESIUM 2.3 mg/dL (1.8-2.4)
[2023-04-17 07:43] LABS: PHOSPHOROUS 3.2 mg/dL (2.5-4.9)
[2023-04-17 07:45] LABS: CREATININE 0.6 mg/dL (0.55-1.3)
[2023-04-17 07:46] LABS: BILIRUBIN,TOTAL 0.6 mg/dL (0.2-1); TOT PROT 6.8 g/dl (6.4-8.2)
[2023-04-17] MEDS: POLYETHYLENE GLYCOL (HEALTHYLAX) 3350 17 GM PACKET PO SCH ×2 (09:18→21:00)
[2023-04-17] MEDS: ENOXAPARIN NA (PORCINE) 40 MG/0.4 ML DISP.SYRIN SQ SCH (09:18)
[2023-04-17] MEDS: SENNOSIDES 8.6MG TABLET (FP) PO SCH (21:00)
[2023-04-18] MEDS: methylPREDNISolone NA SUCC 40 MG/1 ML VIAL IVPUSH SCH ×3 (01:00→17:41)
[2023-04-18] MEDS: GABAPENTIN 300 MG CAPSULE PO SCH ×3 (05:11→21:10)
[2023-04-18 06:59] LABS: HEMATOCRIT 33.6 % (35.4-49); MCH 26.4 pg (25.7-33.7); MCHC 32.7 g/dl (32.0-35.9); MEAN CELL VOLUME 80.7 fl (80-96); MEAN PLT VOLUME 8.2 fl (7.5-11.1); PLATELET COUNT 313 10^3/uL (134-434); RBC 4.17 M/mm3 (4.00-5.60); RDW 15.4 % (11.9-15.9); WHITE BLOOD COUNT 9.7 K/mm3 (4.0-10.0)
[2023-04-18 07:13] LABS: POTASSIUM 4.8 mmol/L (3.5-5.1)
[2023-04-18 07:14] LABS: CALCIUM 8.6 mg/dL (8.5-10.1)
[2023-04-18 07:15] LABS: BLOOD UREA NITROGEN 14.6 mg/dL (7-18)
[2023-04-18 07:18] LABS: CREATININE 0.6 mg/dL (0.55-1.3)
[2023-04-18] MEDS: BUDESONIDE 0.5 MG/2 ML INH SUSP VIAL NEB SCH ×2 (07:35→21:29)
[2023-04-18] MEDS: ALBUTEROL SO4 2.5/IPRATROPIUM 0.5 INH SOL 3 ML VIAL.NEB. NEB SCH ×4 (07:35→21:28)
[2023-04-18] MEDS: ENOXAPARIN NA (PORCINE) 40 MG/0.4 ML DISP.SYRIN SQ SCH (09:57)
[2023-04-18] MEDS: AZITHROMYCIN 250 MG TABLET PO SCH (09:58)
[2023-04-18] MEDS: POLYETHYLENE GLYCOL (HEALTHYLAX) 3350 17 GM PACKET PO SCH ×2 (11:10→21:10)
[2023-04-18] MEDS: PIPERACILLIN/TAZOB 4.5 GM 4.5 GM in DEXTROSE 5%-WATER 100 ML IVPB SCH (20:36)
[2023-04-18] MEDS ORDERED: PIPERACILLIN/TAZOB 4.5 GM 4.5 GM in DEXTROSE 5%-WATER 100 ML IVPB SCH (21:00)
[2023-04-18] MEDS: SENNOSIDES 8.6MG TABLET (FP) PO SCH (21:10)
[2023-04-18 23:59] VITALS: BMI 14.0
[2023-04-19] MEDS: methylPREDNISolone NA SUCC 40 MG/1 ML VIAL IVPUSH SCH ×3 (01:02→18:08)
[2023-04-19] MEDS: PIPERACILLIN/TAZOB 4.5 GM 4.5 GM in DEXTROSE 5%-WATER 100 ML IVPB SCH ×4 (03:00→18:40)
[2023-04-19] MEDS: GABAPENTIN 300 MG CAPSULE PO SCH ×3 (05:24→21:25)
[2023-04-19] MEDS: ALBUTEROL SO4 2.5/IPRATROPIUM 0.5 INH SOL 3 ML VIAL.NEB. NEB SCH ×4 (07:30→20:35)
[2023-04-19] MEDS: BUDESONIDE 0.5 MG/2 ML INH SUSP VIAL NEB SCH ×2 (07:30→20:25)
[2023-04-19 07:39] LABS: HEMATOCRIT 35.5 % (35.4-49); HEMOGLOBIN 11.4 GM/dL (11.7-16.9); MCH 25.9 pg (25.7-33.7); MCHC 32.1 g/dl (32.0-35.9); MEAN CELL VOLUME 80.6 fl (80-96); MEAN PLT VOLUME 8.5 fl (7.5-11.1); PLATELET COUNT 344 10^3/uL (134-434); RDW 15.2 % (11.9-15.9); WHITE BLOOD COUNT 9.3 K/mm3 (4.0-10.0)
[2023-04-19 07:54] LABS: POTASSIUM 4.7 mmol/L (3.5-5.1)
[2023-04-19 09:20] LABS: ALBUMIN 3.1 g/dl (3.4-5.0); CALCIUM 8.9 mg/dL (8.5-10.1)
[2023-04-19 09:21] LABS: BLOOD UREA NITROGEN 14.9 mg/dL (7-18)
[2023-04-19 09:23] LABS: CREATININE 0.8 mg/dL (0.55-1.3)
[2023-04-19] MEDS: ENOXAPARIN NA (PORCINE) 40 MG/0.4 ML DISP.SYRIN SQ SCH (09:23)
[2023-04-19] MEDS: POLYETHYLENE GLYCOL (HEALTHYLAX) 3350 17 GM PACKET PO SCH ×2 (09:23→21:38)
[2023-04-19 09:25] LABS: BILIRUBIN,TOTAL 0.4 mg/dL (0.2-1); TOT PROT 6.9 g/dl (6.4-8.2)
[2023-04-19] MEDS: NYSTATIN 500,000 UNITS/5 ML SUSPENSION PO SCH ×2 (18:08→23:31)
[2023-04-19] MEDS: SENNOSIDES 8.6MG TABLET (FP) PO SCH (21:25)
[2023-04-20] MEDS: methylPREDNISolone NA SUCC 40 MG/1 ML VIAL IVPUSH SCH ×3 (01:01→18:16)
[2023-04-20] MEDS: PIPERACILLIN/TAZOB 4.5 GM 4.5 GM in DEXTROSE 5%-WATER 100 ML IVPB SCH ×3 (01:05→18:15)
[2023-04-20] MEDS: NYSTATIN 500,000 UNITS/5 ML SUSPENSION PO SCH ×3 (05:39→18:16)
[2023-04-20] MEDS: GABAPENTIN 300 MG CAPSULE PO SCH ×3 (05:39→21:04)
[2023-04-20 07:05] LABS: HEMATOCRIT 34.8 % (35.4-49); MCH 25.7 pg (25.7-33.7); MCHC 31.6 g/dl (32.0-35.9); MEAN CELL VOLUME 81.5 fl (80-96); MEAN PLT VOLUME 8.3 fl (7.5-11.1); PLATELET COUNT 361 10^3/uL (134-434); RBC 4.27 M/mm3 (4.00-5.60); RDW 15.4 % (11.9-15.9); WHITE BLOOD COUNT 9.8 K/mm3 (4.0-10.0)
[2023-04-20 07:26] LABS: BLOOD UREA NITROGEN 16.9 mg/dL (7-18)
[2023-04-20 07:29] LABS: CREATININE 0.8 mg/dL (0.55-1.3)
[2023-04-20 07:30] LABS: CALCIUM 8.7 mg/dL (8.5-10.1)
[2023-04-20] MEDS: ALBUTEROL SO4 2.5/IPRATROPIUM 0.5 INH SOL 3 ML VIAL.NEB. NEB SCH ×4 (08:00→20:55)
[2023-04-20] MEDS: BUDESONIDE 0.5 MG/2 ML INH SUSP VIAL NEB SCH ×2 (08:01→20:55)
[2023-04-20] MEDS: POLYETHYLENE GLYCOL (HEALTHYLAX) 3350 17 GM PACKET PO SCH ×2 (09:07→21:04)
[2023-04-20] MEDS: AZITHROMYCIN 250 MG TABLET PO SCH (09:08)
[2023-04-20] MEDS: ENOXAPARIN NA (PORCINE) 40 MG/0.4 ML DISP.SYRIN SQ SCH (09:12)
[2023-04-20] MEDS ORDERED: ACETYLCYSTEINE 20% 200MG/ML 30 ML VIAL *FOR ORAL / INH USE ONLY NEB SCH (16:00)
[2023-04-20] MEDS: ACETYLCYSTEINE 20% 200MG/ML 4 ML VIAL *FOR ORAL / INH USE ONLY NEB SCH ×2 (16:09→20:54)
[2023-04-20 17:46] LABS: ARTERIAL BLD GAS O2 SATURATION 98.7 % (95-98); ARTERIAL BLOOD GAS BASE EXCESS 7.7 mmol/L (-2-2); ARTERIAL BLOOD GAS PO2 137.9 mmHg (80-100); ARTERIAL BLOOD GAS pH 7.403 (7.350-7.450)
[2023-04-20 17:47] LABS: ALLENS TEST POSITIVE
[2023-04-20] MEDS: guaiFENesin 200 MG/10 ML 10 ML UNIT-DOSE CUPS PO PRN (21:04)
[2023-04-20] MEDS: SENNOSIDES 8.6MG TABLET (FP) PO SCH (21:04)
[2023-04-21] MEDS: NYSTATIN 500,000 UNITS/5 ML SUSPENSION PO SCH ×4 (01:20→17:22)
[2023-04-21] MEDS: PIPERACILLIN/TAZOB 4.5 GM 4.5 GM in DEXTROSE 5%-WATER 100 ML IVPB SCH ×3 (01:20→17:22)
[2023-04-21] MEDS: methylPREDNISolone NA SUCC 40 MG/1 ML VIAL IVPUSH SCH ×3 (01:20→17:22)
[2023-04-21] MEDS: guaiFENesin 200 MG/10 ML 10 ML UNIT-DOSE CUPS PO PRN (06:04)
[2023-04-21] MEDS: GABAPENTIN 300 MG CAPSULE PO SCH ×3 (06:05→21:23)
[2023-04-21 07:28] LABS: HEMATOCRIT 32.7 % (35.4-49); HEMOGLOBIN 10.4 GM/dL (11.7-16.9); MCH 25.9 pg (25.7-33.7); MCHC 31.9 g/dl (32.0-35.9); MEAN PLT VOLUME 8.1 fl (7.5-11.1); PLATELET COUNT 360 10^3/uL (134-434); RBC 4.03 M/mm3 (4.00-5.60); RDW 15.1 % (11.9-15.9); WHITE BLOOD COUNT 11.8 K/mm3 (4.0-10.0)
[2023-04-21 07:35] LABS: POTASSIUM 4.7 mmol/L (3.5-5.1)
[2023-04-21 07:38] LABS: BLOOD UREA NITROGEN 16.2 mg/dL (7-18); CALCIUM 9.2 mg/dL (8.5-10.1)
[2023-04-21 07:39] LABS: ALBUMIN 2.9 g/dl (3.4-5.0)
[2023-04-21 07:42] LABS: CREATININE 0.7 mg/dL (0.55-1.3)
[2023-04-21 07:43] LABS: BILIRUBIN,TOTAL 0.6 mg/dL (0.2-1); TOT PROT 6.6 g/dl (6.4-8.2)
[2023-04-21] MEDS: BUDESONIDE 0.5 MG/2 ML INH SUSP VIAL NEB SCH ×2 (08:47→20:49)
[2023-04-21] MEDS: ACETYLCYSTEINE 20% 200MG/ML 4 ML VIAL *FOR ORAL / INH USE ONLY NEB SCH (08:48)
[2023-04-21] MEDS: ALBUTEROL SO4 2.5/IPRATROPIUM 0.5 INH SOL 3 ML VIAL.NEB. NEB SCH ×4 (08:48→20:34)
[2023-04-21] MEDS: ENOXAPARIN NA (PORCINE) 40 MG/0.4 ML DISP.SYRIN SQ SCH (09:58)
[2023-04-21] MEDS: POLYETHYLENE GLYCOL (HEALTHYLAX) 3350 17 GM PACKET PO SCH ×2 (09:58→21:31)
[2023-04-21] MEDS: SENNOSIDES 8.6MG TABLET (FP) PO SCH (21:23)
[2023-04-22] MEDS: ALBUTEROL SO4 2.5/IPRATROPIUM 0.5 INH SOL 3 ML VIAL.NEB. NEB SCH ×6 (00:22→21:15)
[2023-04-22] MEDS: NYSTATIN 500,000 UNITS/5 ML SUSPENSION PO SCH ×5 (01:00→23:35)
[2023-04-22] MEDS: PIPERACILLIN/TAZOB 4.5 GM 4.5 GM in DEXTROSE 5%-WATER 100 ML IVPB SCH ×3 (01:00→17:01)
[2023-04-22] MEDS: methylPREDNISolone NA SUCC 40 MG/1 ML VIAL IVPUSH SCH ×3 (01:00→17:01)
[2023-04-22] MEDS: GABAPENTIN 300 MG CAPSULE PO SCH ×3 (05:42→21:19)
[2023-04-22] MEDS: BUDESONIDE 0.5 MG/2 ML INH SUSP VIAL NEB SCH ×2 (07:55→21:14)
[2023-04-22] MEDS: POLYETHYLENE GLYCOL (HEALTHYLAX) 3350 17 GM PACKET PO SCH ×2 (09:17→21:20)
[2023-04-22] MEDS: ENOXAPARIN NA (PORCINE) 40 MG/0.4 ML DISP.SYRIN SQ SCH (09:18)
[2023-04-22] MEDS: SENNOSIDES 8.6MG TABLET (FP) PO SCH (21:19)
[2023-04-22] MEDS: guaiFENesin 200 MG/10 ML 10 ML UNIT-DOSE CUPS PO PRN (21:21)
[2023-04-23] MEDS: ALBUTEROL SO4 2.5/IPRATROPIUM 0.5 INH SOL 3 ML VIAL.NEB. NEB SCH ×6 (01:57→20:05)
[2023-04-23] MEDS: PIPERACILLIN/TAZOB 4.5 GM 4.5 GM in DEXTROSE 5%-WATER 100 ML IVPB SCH ×3 (02:00→17:16)
[2023-04-23] MEDS: methylPREDNISolone NA SUCC 40 MG/1 ML VIAL IVPUSH SCH ×3 (03:00→17:17)
[2023-04-23] MEDS: NYSTATIN 500,000 UNITS/5 ML SUSPENSION PO SCH ×3 (06:24→17:17)
[2023-04-23] MEDS: GABAPENTIN 300 MG CAPSULE PO SCH ×3 (06:24→21:06)
[2023-04-23 07:20] LABS: HEMATOCRIT 32.1 % (35.4-49); HEMOGLOBIN 10.2 GM/dL (11.7-16.9); MCH 25.7 pg (25.7-33.7); MCHC 31.8 g/dl (32.0-35.9); MEAN CELL VOLUME 80.7 fl (80-96); MEAN PLT VOLUME 8.1 fl (7.5-11.1); PLATELET COUNT 361 10^3/uL (134-434); RBC 3.97 M/mm3 (4.00-5.60); RDW 15.2 % (11.9-15.9); WHITE BLOOD COUNT 10.9 K/mm3 (4.0-10.0)
[2023-04-23 08:06] LABS: ALBUMIN 2.7 g/dl (3.4-5.0); BLOOD UREA NITROGEN 18.8 mg/dL (7-18); CALCIUM 9.3 mg/dL (8.5-10.1); MAGNESIUM 2.4 mg/dL (1.8-2.4)
[2023-04-23 08:09] LABS: CREATININE 0.7 mg/dL (0.55-1.3); PHOSPHOROUS 3.2 mg/dL (2.5-4.9)
[2023-04-23 08:10] LABS: BILIRUBIN,TOTAL 0.3 mg/dL (0.2-1); TOT PROT 6.3 g/dl (6.4-8.2)
[2023-04-23] MEDS: BUDESONIDE 0.5 MG/2 ML INH SUSP VIAL NEB SCH ×2 (08:50→20:05)
[2023-04-23 09:05] LABS: ANISOCYTOSIS 0; MACROCYTOSIS 0
[2023-04-23] MEDS: ENOXAPARIN NA (PORCINE) 40 MG/0.4 ML DISP.SYRIN SQ SCH (09:20)
[2023-04-23] MEDS: AZITHROMYCIN 250 MG TABLET PO SCH (09:21)
[2023-04-23] MEDS: POLYETHYLENE GLYCOL (HEALTHYLAX) 3350 17 GM PACKET PO SCH ×3 (09:21→21:09)
[2023-04-23] MEDS ORDERED: ALBUTEROL SO4 0.083% IH SOL 2.5 MG/3 ML VIAL.NEB. NEB PRN (12:34)
[2023-04-23] MEDS: TIOTROPIUM BROMIDE 2.5 MCG (SPIRIVA) RESPIMAT INHALER IH SCH (14:41)
[2023-04-23] MEDS ORDERED: ACETAMINOPHEN 1000 MG/100 ML BAG IVPB PRN (18:57)
[2023-04-23] MEDS ORDERED: KETOROLAC TROMETHAMINE 30 MG/1 ML VIAL IM PRN (18:58)
[2023-04-23] MEDS: SENNOSIDES 8.6MG TABLET (FP) PO SCH (21:06)
[2023-04-24] MEDS: NYSTATIN 500,000 UNITS/5 ML SUSPENSION PO SCH ×4 (00:10→17:35)
[2023-04-24] MEDS: PIPERACILLIN/TAZOB 4.5 GM 4.5 GM in DEXTROSE 5%-WATER 100 ML IVPB SCH ×3 (01:07→17:36)
[2023-04-24] MEDS: methylPREDNISolone NA SUCC 40 MG/1 ML VIAL IVPUSH SCH ×3 (01:09→18:09)
[2023-04-24] MEDS: GABAPENTIN 300 MG CAPSULE PO SCH ×3 (06:14→21:22)
[2023-04-24 07:37] LABS: POTASSIUM 5.2 mmol/L (3.5-5.1)
[2023-04-24 07:38] LABS: HEMATOCRIT 33.8 % (35.4-49); HEMOGLOBIN 10.8 GM/dL (11.7-16.9); MCH 25.6 pg (25.7-33.7); MCHC 31.9 g/dl (32.0-35.9); MEAN CELL VOLUME 80.4 fl (80-96); MEAN PLT VOLUME 8.5 fl (7.5-11.1); PLATELET COUNT 362 10^3/uL (134-434); RDW 15.6 % (11.9-15.9)
[2023-04-24 07:49] LABS: ALBUMIN 2.8 g/dl (3.4-5.0); CALCIUM 9.1 mg/dL (8.5-10.1); MAGNESIUM 2.3 mg/dL (1.8-2.4)
[2023-04-24 07:50] LABS: BLOOD UREA NITROGEN 22.2 mg/dL (7-18)
[2023-04-24 07:52] LABS: CREATININE 0.8 mg/dL (0.55-1.3); PHOSPHOROUS 3.5 mg/dL (2.5-4.9)
[2023-04-24 07:54] LABS: TOT PROT 6.5 g/dl (6.4-8.2)
[2023-04-24 07:55] LABS: BILIRUBIN,TOTAL 0.5 mg/dL (0.2-1)
[2023-04-24] MEDS: POLYETHYLENE GLYCOL (HEALTHYLAX) 3350 17 GM PACKET PO SCH ×2 (09:03→21:22)
[2023-04-24] MEDS: TIOTROPIUM BROMIDE 2.5 MCG (SPIRIVA) RESPIMAT INHALER IH SCH (09:03)
[2023-04-24] MEDS: ENOXAPARIN NA (PORCINE) 40 MG/0.4 ML DISP.SYRIN SQ SCH (09:07)
[2023-04-24] MEDS: ALBUTEROL SO4 2.5/IPRATROPIUM 0.5 INH SOL 3 ML VIAL.NEB. NEB SCH ×3 (09:20→19:35)
[2023-04-24] MEDS: BUDESONIDE 0.5 MG/2 ML INH SUSP VIAL NEB SCH ×2 (10:46→19:35)
[2023-04-24] MEDS ORDERED: PNEUMOC 20-VAL CONJ-DIP CRM/PF 0.5 ML SYRINGE IM ONE (16:00)
[2023-04-24 16:15] LABS: POTASSIUM 5.2 mmol/L (3.5-5.1)
[2023-04-24 16:16] LABS: CALCIUM 9.3 mg/dL (8.5-10.1)
[2023-04-24 16:17] LABS: BLOOD UREA NITROGEN 26.1 mg/dL (7-18)
[2023-04-24 16:20] LABS: CREATININE 0.8 mg/dL (0.55-1.3)
[2023-04-24] MEDS: oxyCODONE HCL 5 MG TABLET PO PRN (18:23)
[2023-04-24] MEDS: SENNOSIDES 8.6MG TABLET (FP) PO SCH (21:22)
[2023-04-24] MEDS ORDERED: oxyCODONE HCL 5 MG TABLET PO ONE (22:28)
[2023-04-25] MEDS: NYSTATIN 500,000 UNITS/5 ML SUSPENSION PO SCH ×5 (00:18→23:43)
[2023-04-25] MEDS: methylPREDNISolone NA SUCC 40 MG/1 ML VIAL IVPUSH SCH ×3 (01:20→21:47)
[2023-04-25] MEDS: GABAPENTIN 300 MG CAPSULE PO SCH ×4 (07:06→23:09)
[2023-04-25] MEDS: oxyCODONE HCL 5 MG TABLET PO PRN (07:06)
[2023-04-25] MEDS: ALBUTEROL SO4 2.5/IPRATROPIUM 0.5 INH SOL 3 ML VIAL.NEB. NEB SCH ×3 (07:25→19:53)
[2023-04-25] MEDS: BUDESONIDE 0.5 MG/2 ML INH SUSP VIAL NEB SCH ×2 (07:25→19:53)
[2023-04-25 07:48] LABS: HEMATOCRIT 33.8 % (35.4-49); HEMOGLOBIN 10.9 GM/dL (11.7-16.9); MCH 26.1 pg (25.7-33.7); MCHC 32.1 g/dl (32.0-35.9); MEAN CELL VOLUME 81.3 fl (80-96); MEAN PLT VOLUME 8.3 fl (7.5-11.1); PLATELET COUNT 363 10^3/uL (134-434); RBC 4.16 M/mm3 (4.00-5.60); RDW 15.2 % (11.9-15.9); WHITE BLOOD COUNT 8.9 K/mm3 (4.0-10.0)
[2023-04-25 07:57] LABS: POTASSIUM 5.1 mmol/L (3.5-5.1)
[2023-04-25 08:03] LABS: ALBUMIN 2.8 g/dl (3.4-5.0); CALCIUM 9.2 mg/dL (8.5-10.1); MAGNESIUM 2.4 mg/dL (1.8-2.4)
[2023-04-25 08:04] LABS: BLOOD UREA NITROGEN 22.5 mg/dL (7-18)
[2023-04-25 08:06] LABS: PHOSPHOROUS 3.5 mg/dL (2.5-4.9)
[2023-04-25 08:07] LABS: CREATININE 0.8 mg/dL (0.55-1.3)
[2023-04-25 08:08] LABS: BILIRUBIN,TOTAL 0.3 mg/dL (0.2-1); TOT PROT 6.5 g/dl (6.4-8.2)
[2023-04-25] MEDS: POLYETHYLENE GLYCOL (HEALTHYLAX) 3350 17 GM PACKET PO SCH ×3 (08:59→21:54)
[2023-04-25] MEDS: ENOXAPARIN NA (PORCINE) 40 MG/0.4 ML DISP.SYRIN SQ SCH (09:01)
[2023-04-25] MEDS: TIOTROPIUM BROMIDE 2.5 MCG (SPIRIVA) RESPIMAT INHALER IH SCH (09:05)
[2023-04-25] MEDS ORDERED: AZITHROMYCIN 250 MG TABLET PO SCH (10:00)
[2023-04-25] MEDS ORDERED: oxyCODONE HCL 5 MG TABLET PO PRN ×2 (12:21→17:11)
[2023-04-25] MEDS ORDERED: guaiFENesin 200 MG/10 ML 10 ML UNIT-DOSE CUPS PO PRN (17:11)
[2023-04-25] MEDS ORDERED: ALBUTEROL SO4 0.083% IH SOL 2.5 MG/3 ML VIAL.NEB. NEB PRN (17:11)
[2023-04-25] MEDS ORDERED: ACETAMINOPHEN 1000 MG/100 ML BAG IVPB PRN (17:11)
[2023-04-25] MEDS ORDERED: PNEUMOC 20-VAL CONJ-DIP CRM/PF 0.5 ML SYRINGE IM ONE (19:15)
[2023-04-25] MEDS ORDERED: SODIUM ZIRCONIUM CYCLOSILICATE (LOKELMA) 5 GM PACKET PO ONE ×2 (19:47)
[2023-04-25] MEDS: SENNOSIDES 8.6MG TABLET (FP) PO SCH (21:46)
[2023-04-25] MEDS ORDERED: methylPREDNISolone NA SUCC 40 MG/1 ML VIAL IVPUSH SCH (22:00)
[2023-04-25] MEDS: GABAPENTIN 250 MG/5 ML ORAL SOLUTION, 470 ML BOTTLE PO SCH (22:37)
[2023-04-26] MEDS ORDERED: KETOROLAC TROMETHAMINE 15 MG/ML VIAL IVPUSH ONE (01:49)
[2023-04-26] MEDS: GABAPENTIN 250 MG/5 ML ORAL SOLUTION, 470 ML BOTTLE PO SCH ×3 (06:23→22:25)
[2023-04-26] MEDS: NYSTATIN 500,000 UNITS/5 ML SUSPENSION PO SCH ×3 (06:23→18:28)
[2023-04-26] MEDS: ALBUTEROL SO4 2.5/IPRATROPIUM 0.5 INH SOL 3 ML VIAL.NEB. NEB SCH ×3 (08:15→20:40)
[2023-04-26] MEDS: BUDESONIDE 0.5 MG/2 ML INH SUSP VIAL NEB SCH ×2 (08:20→20:40)
[2023-04-26 08:42] LABS: HEMATOCRIT 34.2 % (35.4-49); MCHC 32.1 g/dl (32.0-35.9); MEAN CELL VOLUME 81.1 fl (80-96); MEAN PLT VOLUME 8.6 fl (7.5-11.1); PLATELET COUNT 310 10^3/uL (134-434); POTASSIUM 5.5 mmol/L (3.5-5.1); RBC 4.22 M/mm3 (4.00-5.60); WHITE BLOOD COUNT 10.1 K/mm3 (4.0-10.0)
[2023-04-26 08:52] LABS: CALCIUM 9.2 mg/dL (8.5-10.1)
[2023-04-26 08:53] LABS: ALBUMIN 2.6 g/dl (3.4-5.0)
[2023-04-26 08:55] LABS: CREATININE 0.8 mg/dL (0.55-1.3)
[2023-04-26 08:57] LABS: BILIRUBIN,TOTAL 0.7 mg/dL (0.2-1); TOT PROT 6.2 g/dl (6.4-8.2)
[2023-04-26] MEDS ORDERED: TIOTROPIUM BROMIDE 2.5 MCG (SPIRIVA) RESPIMAT INHALER IH SCH (10:00)
[2023-04-26] MEDS: ENOXAPARIN NA (PORCINE) 40 MG/0.4 ML DISP.SYRIN SQ SCH (11:11)
[2023-04-26] MEDS: methylPREDNISolone NA SUCC 40 MG/1 ML VIAL IVPUSH SCH (11:11)
[2023-04-26] MEDS: LIDOCAINE 4% PATCH TP SCH (11:12)
[2023-04-26] MEDS: POLYETHYLENE GLYCOL (HEALTHYLAX) 3350 17 GM PACKET PO SCH ×3 (11:48→22:29)
[2023-04-26] MEDS ORDERED: oxyCODONE HCL 5 MG TABLET PO PRN (15:41)
[2023-04-26] MEDS ORDERED: BUPRENORPHINE TP SCH (18:00)
[2023-04-26] MEDS: SENNOSIDES 8.6MG TABLET (FP) PO SCH (22:17)
[2023-04-26] MEDS: predniSONE 20 MG TABLET (UD) PO SCH (22:17)
[2023-04-26] MEDS: LIDOCAINE PATCH REMOVAL MC SCH (22:18)
[2023-04-27] MEDS: SENNOSIDES 8.6MG TABLET (FP) PO SCH ×2 (01:15→21:15)
[2023-04-27] MEDS: NYSTATIN 500,000 UNITS/5 ML SUSPENSION PO SCH ×3 (01:23→14:12)
[2023-04-27] MEDS: GABAPENTIN 250 MG/5 ML ORAL SOLUTION, 470 ML BOTTLE PO SCH ×3 (05:51→21:14)
[2023-04-27] MEDS: ALBUTEROL SO4 2.5/IPRATROPIUM 0.5 INH SOL 3 ML VIAL.NEB. NEB SCH ×3 (07:15→20:30)
[2023-04-27] MEDS: BUDESONIDE 0.5 MG/2 ML INH SUSP VIAL NEB SCH ×2 (07:15→20:30)
[2023-04-27] MEDS: ENOXAPARIN NA (PORCINE) 40 MG/0.4 ML DISP.SYRIN SQ SCH (10:17)
[2023-04-27] MEDS: LIDOCAINE 4% PATCH TP SCH ×2 (10:17→10:32)
[2023-04-27] MEDS: predniSONE 20 MG TABLET (UD) PO SCH ×2 (10:18→21:15)
[2023-04-27] MEDS: AZITHROMYCIN 250 MG TABLET PO SCH (10:18)
[2023-04-27] MEDS: LACTOBACILLUS ACIDOPHILUS 1 TABLET PO SCH (10:18)
[2023-04-27] MEDS: POLYETHYLENE GLYCOL (HEALTHYLAX) 3350 17 GM PACKET PO SCH ×2 (10:30→21:14)
[2023-04-27] MEDS ORDERED: SODIUM ZIRCONIUM CYCLOSILICATE (LOKELMA) 5 GM PACKET PO ONE (13:00)
[2023-04-27] MEDS: LIDOCAINE PATCH REMOVAL MC SCH (21:16)
[2023-04-28] MEDS: NYSTATIN 500,000 UNITS/5 ML SUSPENSION PO SCH ×4 (06:17→17:07)
[2023-04-28] MEDS: GABAPENTIN 250 MG/5 ML ORAL SOLUTION, 470 ML BOTTLE PO SCH ×4 (06:18→21:45)
[2023-04-28] MEDS: ALBUTEROL SO4 2.5/IPRATROPIUM 0.5 INH SOL 3 ML VIAL.NEB. NEB SCH ×3 (07:20→20:26)
[2023-04-28] MEDS: BUDESONIDE 0.5 MG/2 ML INH SUSP VIAL NEB SCH ×2 (07:20→20:26)
[2023-04-28 09:05] LABS: BASO % 0.3 % (0-2.0); HEMATOCRIT 36.4 % (35.4-49); HEMOGLOBIN 11.5 GM/dL (11.7-16.9); LYMPH % 8.1 % (8-40); MCH 25.7 pg (25.7-33.7); MCHC 31.6 g/dl (32.0-35.9); MEAN CELL VOLUME 81.3 fl (80-96); MEAN PLT VOLUME 8.6 fl (7.5-11.1); MONO % 8.3 % (3.8-10.2); NEUT % 83.3 % (42.8-82.8); PLATELET COUNT 277 10^3/uL (134-434); RBC 4.48 M/mm3 (4.00-5.60); RDW 15.2 % (11.9-15.9); WHITE BLOOD COUNT 11.6 K/mm3 (4.0-10.0)
[2023-04-28 09:13] LABS: POTASSIUM 4.9 mmol/L (3.5-5.1)
[2023-04-28 09:16] LABS: CALCIUM 8.5 mg/dL (8.5-10.1)
[2023-04-28 09:17] LABS: ALBUMIN 2.7 g/dl (3.4-5.0); BLOOD UREA NITROGEN 21.8 mg/dL (7-18)
[2023-04-28 09:20] LABS: CREATININE 0.6 mg/dL (0.55-1.3)
[2023-04-28 09:21] LABS: BILIRUBIN,TOTAL 0.4 mg/dL (0.2-1); TOT PROT 6.7 g/dl (6.4-8.2)
[2023-04-28] MEDS: LIDOCAINE 4% PATCH TP SCH (09:26)
[2023-04-28] MEDS: POLYETHYLENE GLYCOL (HEALTHYLAX) 3350 17 GM PACKET PO SCH ×3 (09:26→21:44)
[2023-04-28] MEDS: SODIUM ZIRCONIUM CYCLOSILICATE (LOKELMA) 5 GM PACKET PO SCH (09:27)
[2023-04-28] MEDS: LACTOBACILLUS ACIDOPHILUS 1 TABLET PO SCH (09:28)
[2023-04-28] MEDS: ENOXAPARIN NA (PORCINE) 40 MG/0.4 ML DISP.SYRIN SQ SCH (09:28)
[2023-04-28] MEDS: predniSONE 20 MG TABLET (UD) PO SCH ×2 (09:28→21:44)
[2023-04-28] MEDS ORDERED: SODIUM CHLORIDE 1,000 ML IV SCH (12:15)
[2023-04-28] MEDS: SENNOSIDES 8.6MG TABLET (FP) PO SCH (21:44)
[2023-04-28] MEDS: LIDOCAINE PATCH REMOVAL MC SCH (21:54)
[2023-04-29] MEDS: NYSTATIN 500,000 UNITS/5 ML SUSPENSION PO SCH ×4 (01:14→17:15)
[2023-04-29] MEDS: GABAPENTIN 250 MG/5 ML ORAL SOLUTION, 470 ML BOTTLE PO SCH ×3 (05:38→21:13)
[2023-04-29] MEDS: ALBUTEROL SO4 2.5/IPRATROPIUM 0.5 INH SOL 3 ML VIAL.NEB. NEB SCH ×3 (08:28→20:01)
[2023-04-29] MEDS: BUDESONIDE 0.5 MG/2 ML INH SUSP VIAL NEB SCH ×2 (08:29→20:02)
[2023-04-29] MEDS: ENOXAPARIN NA (PORCINE) 40 MG/0.4 ML DISP.SYRIN SQ SCH (09:14)
[2023-04-29] MEDS: predniSONE 20 MG TABLET (UD) PO SCH ×2 (09:14→21:13)
[2023-04-29] MEDS: LACTOBACILLUS ACIDOPHILUS 1 TABLET PO SCH (09:14)
[2023-04-29 09:15] LABS: HEMATOCRIT 34.7 % (35.4-49); HEMOGLOBIN 11.1 GM/dL (11.7-16.9); MCH 25.8 pg (25.7-33.7); MEAN CELL VOLUME 80.7 fl (80-96); MEAN PLT VOLUME 8.1 fl (7.5-11.1); PLATELET COUNT 268 10^3/uL (134-434); RDW 14.7 % (11.9-15.9); WHITE BLOOD COUNT 11.8 K/mm3 (4.0-10.0)
[2023-04-29] MEDS: LIDOCAINE 4% PATCH TP SCH (09:15)
[2023-04-29] MEDS: SODIUM ZIRCONIUM CYCLOSILICATE (LOKELMA) 5 GM PACKET PO SCH ×2 (09:15)
[2023-04-29] MEDS: POLYETHYLENE GLYCOL (HEALTHYLAX) 3350 17 GM PACKET PO SCH ×2 (09:16→21:13)
[2023-04-29 11:53] LABS: BLOOD UREA NITROGEN 20.5 mg/dL (7-18); CALCIUM 9.1 mg/dL (8.5-10.1); CREATININE 0.5 mg/dL (0.55-1.3); POTASSIUM 5.6 mmol/L (3.5-5.1)
[2023-04-29] MEDS: SENNOSIDES 8.6MG TABLET (FP) PO SCH (21:14)
[2023-04-29] MEDS: LIDOCAINE PATCH REMOVAL MC SCH (21:23)
[2023-04-30] MEDS: NYSTATIN 500,000 UNITS/5 ML SUSPENSION PO SCH ×3 (01:26→12:55)
[2023-04-30] MEDS: GABAPENTIN 300 MG CAPSULE PO SCH ×2 (06:47→13:15)
[2023-04-30] MEDS: BUDESONIDE 0.5 MG/2 ML INH SUSP VIAL NEB SCH (07:25)
[2023-04-30] MEDS: ALBUTEROL SO4 2.5/IPRATROPIUM 0.5 INH SOL 3 ML VIAL.NEB. NEB SCH ×2 (07:35→15:20)
[2023-04-30] MEDS: ENOXAPARIN NA (PORCINE) 40 MG/0.4 ML DISP.SYRIN SQ SCH (10:09)
[2023-04-30] MEDS: SODIUM ZIRCONIUM CYCLOSILICATE (LOKELMA) 5 GM PACKET PO SCH (10:09)
[2023-04-30] MEDS: predniSONE 20 MG TABLET (UD) PO SCH (10:10)
[2023-04-30] MEDS: LACTOBACILLUS ACIDOPHILUS 1 TABLET PO SCH (10:10)
[2023-04-30] MEDS: AZITHROMYCIN 250 MG TABLET PO SCH (10:10)
[2023-04-30] MEDS: LIDOCAINE 4% PATCH TP SCH (10:10)
[2023-04-30] MEDS: POLYETHYLENE GLYCOL (HEALTHYLAX) 3350 17 GM PACKET PO SCH (10:24)
[2023-04-30 14:41] VITALS: BP 125/84; PULSE 103; RESP 20; TEMP 97.8
== END 2023-04-30 16:25 | disposition home or self-care (01) | DRG 190 ==
LOC: JER 02:59 → JERBED 04:19 → J4W 18:50 → J5S 04-25 17:08
PROVIDERS: ADMIT Internal Medicine; ATTEND Internal Medicine
DX: J44.1 Chronic obstructive pulmonary disease with (acute) exacerbation (principal); E43 Unspecified severe protein-calorie malnutrition; J18.9 Pneumonia, unspecified organism; J96.01 Acute respiratory failure with hypoxia; J96.02 Acute respiratory failure with hypercapnia; F11.20 Opioid dependence, uncomplicated; B37.0 Candidal stomatitis; Z68.1 Body mass index [BMI] 19.9 or less, adult; E87.1 Hypo-osmolality and hyponatremia; J44.0 Chronic obstructive pulmonary disease with (acute) lower respiratory infection; M54.50 Low back pain, unspecified; I25.10 Atherosclerotic heart disease of native coronary artery without angina pectoris; K59.00 Constipation, unspecified; Z99.81 Dependence on supplemental oxygen; E87.5 Hyperkalemia; R13.10 Dysphagia, unspecified
CPT/HCPCS: 0241U-QW; 36415; 36600; 71045-TC-FY; 71250-TC; 74230-TC-FY; 80048; 80053; 82803; 82962; 83735; 83880; 84100; 84484; 85025; 85027; 85379; 85610; 85730; 87081; 87899; 92611-GN; 93005; 93010; 93306-TC; 94640; 97116-GP; 97163-GP; 99285-25

== ENCOUNTER 2023-07-10 09:13 | Observation (INO) | payer MEDICARE, OTHER ==
[2023-07-10] MEDS: methylPREDNISolone NA SUCC 125 MG/2 ML VIAL IVPUSH ONE (10:40)
[2023-07-10] MEDS: ALBUTEROL SO4 2.5/IPRATROPIUM 0.5 INH SOL 3 ML VIAL.NEB. NEB ONE (10:40)
[2023-07-10] MEDS ORDERED: methylPREDNISolone NA SUCC 125 MG/2 ML VIAL ONE (10:57)
[2023-07-10] MEDS ORDERED: LIDOCAINE 4% PATCH TP ONE (10:57)
[2023-07-10] MEDS ORDERED: ACETAMINOPHEN INJECTION 100 ML IVPB ONE ×2 (10:57→12:37)
[2023-07-10] MEDS ORDERED: ALBUTEROL SO4 2.5/IPRATROPIUM 0.5 INH SOL 3 ML VIAL.NEB. NEB ONE (10:57)
[2023-07-10] MEDS: LIDOCAINE 4% PATCH TP ONE (11:50)
[2023-07-10 12:38] LABS: BASO % 0.6 % (0-2.0); EOS % 1.4 % (0-4.5); HEMATOCRIT 34.1 % (35.4-49); HEMOGLOBIN 11.2 GM/dL (11.7-16.9); LYMPH % 17.5 % (8-40); MCHC 32.9 g/dl (32.0-35.9); MEAN CELL VOLUME 82.3 fl (80-96); MEAN PLT VOLUME 8.6 fl (7.5-11.1); MONO % 7.8 % (3.8-10.2); NEUT % 72.7 % (42.8-82.8); PLATELET COUNT 281 10^3/uL (134-434); RBC 4.15 M/mm3 (4.00-5.60); RDW 16.4 % (11.9-15.9); WHITE BLOOD COUNT 10.7 K/mm3 (4.0-10.0)
[2023-07-10 12:44] LABS: VENOUS BASE EXCESS -1.4 mmol/L (-2-2); VENOUS O2 SATURATION 86.1 % (70-80); VENOUS PCO2 37.4 mmHg (38-52); VENOUS PH 7.402 (7.310-7.410)
[2023-07-10] MEDS ORDERED: ACETAMINOPHEN 325 MG TABLET (FP) ONE (12:46)
[2023-07-10] MEDS: ACETAMINOPHEN 500 MG TABLET (FP) PO ONE (12:50)
[2023-07-10] MEDS: ACETAMINOPHEN 1000 MG/100 ML BAG IVPB ONE (12:50)
[2023-07-10 13:06] LABS: CALCIUM 9.4 mg/dL (8.5-10.1)
[2023-07-10 13:07] LABS: ALBUMIN 3.4 g/dl (3.4-5.0); BLOOD UREA NITROGEN 9.7 mg/dL (7-18)
[2023-07-10 13:10] LABS: CREATININE 0.6 mg/dL (0.55-1.3)
[2023-07-10 13:11] LABS: BILIRUBIN,TOTAL 0.4 mg/dL (0.2-1); TOT PROT 7.3 g/dl (6.4-8.2)
[2023-07-10] MEDS: ATORVASTATIN CA 40 MG TABLET (FP) PO SCH (21:43)
[2023-07-10] MEDS: FLUTICASONE/UMECLIDIN/VILANTER(200-62.5-25 TRELEGY ELLIPTA) INAHLER IH SCH (21:43)
[2023-07-10] MEDS: LIDOCAINE PATCH REMOVAL MC ONE (21:48)
[2023-07-10 22:10] VITALS: BMI 14.7
[2023-07-11 06:39] LABS: HEMATOCRIT 31.9 % (35.4-49); HEMOGLOBIN 10.4 GM/dL (11.7-16.9); MCH 26.8 pg (25.7-33.7); MCHC 32.5 g/dl (32.0-35.9); MEAN CELL VOLUME 82.5 fl (80-96); MEAN PLT VOLUME 8.5 fl (7.5-11.1); PLATELET COUNT 267 10^3/uL (134-434); RBC 3.87 M/mm3 (4.00-5.60); RDW 15.8 % (11.9-15.9); WHITE BLOOD COUNT 6.2 K/mm3 (4.0-10.0)
[2023-07-11] MEDS: ACETAMINOPHEN 500 MG TABLET (FP) PO PRN (06:46)
[2023-07-11 07:05] LABS: POTASSIUM 4.1 mmol/L (3.5-5.1)
[2023-07-11 07:11] LABS: CALCIUM 8.3 mg/dL (8.5-10.1); CREATININE 0.6 mg/dL (0.55-1.3)
[2023-07-11 07:12] LABS: BLOOD UREA NITROGEN 15.1 mg/dL (7-18)
[2023-07-11 07:13] LABS: BILIRUBIN,TOTAL 0.5 mg/dL (0.2-1); TOT PROT 6.9 g/dl (6.4-8.2)
[2023-07-11] MEDS: ALBUTEROL SO4 2.5/IPRATROPIUM 0.5 INH SOL 3 ML VIAL.NEB. NEB PRN (08:02)
[2023-07-11] MEDS: predniSONE 20 MG TABLET (UD) PO SCH (09:33)
[2023-07-11] MEDS: ASPIRIN 81 MG CHEWABLE TABLETS PO SCH (09:33)
[2023-07-11] MEDS ORDERED: DICLOFENAC SODIUM 25 MG TABLET.DR PO ONE (10:24)
[2023-07-11 15:18] VITALS: RESP 17
[2023-07-11] MEDS: GABAPENTIN 300 MG CAPSULE PO SCH (15:44)
[2023-07-11 18:18] VITALS: BP 122/80; PULSE 79; TEMP 98.4
== END 2023-07-11 18:21 | disposition home or self-care (01) ==
LOC: JER 09:13 → JERBED 15:52 → J4W 18:37
PROVIDERS: ADMIT Internal Medicine; ATTEND Nurse Practitioner Acute Care
PROC: 3E0F7GC Introduction of Other Therapeutic Substance into Respiratory Tract, Via Natural or Artificial Opening (ICD-10-PCS; principal; 2023-07-10)
PROC: 3E033GC Introduction of Other Therapeutic Substance into Peripheral Vein, Percutaneous Approach (ICD-10-PCS; 2023-07-10)
DX: J44.1 Chronic obstructive pulmonary disease with (acute) exacerbation (principal); J96.20 Acute and chronic respiratory failure, unspecified whether with hypoxia or hypercapnia; E43 Unspecified severe protein-calorie malnutrition; Z29.89 Encounter for other specified prophylactic measures; Z90.49 Acquired absence of other specified parts of digestive tract; K92.9 Disease of digestive system, unspecified; Z86.16 Personal history of COVID-19; G89.29 Other chronic pain; B19.20 Unspecified viral hepatitis C without hepatic coma; Z99.81 Dependence on supplemental oxygen; F17.200 Nicotine dependence, unspecified, uncomplicated
CPT/HCPCS: 36415; 71045-TC-FY; 72170-TC-FY; 73502-TC-LT-FY; 73552-TC-LT-FY; 80053; 82803; 84484; 85025; 85027; 93005; 93010; 94640; 96374; 99285-25; G0378

== ENCOUNTER 2024-06-16 00:59 | Inpatient (IN) | payer MEDICARE, OTHER ==
[2024-06-16] MEDS ORDERED: ALBUTEROL SO4 2.5/IPRATROPIUM 0.5 INH SOL 3 ML VIAL.NEB. NEB ONE (01:06)
[2024-06-16] MEDS ORDERED: methylPREDNISolone NA SUCC 125 MG/2 ML VIAL ONE (01:14)
[2024-06-16] MEDS: methylPREDNISolone NA SUCC 125 MG/2 ML VIAL IVPB ONE (01:41)
[2024-06-16 01:54] LABS: BASO % 0.4 % (0-2.0); EOS % 1.7 % (0-4.5); HEMATOCRIT 37.4 % (35.4-49); HEMOGLOBIN 11.8 GM/dL (11.7-16.9); LYMPH % 20.8 % (8-40); MCH 26.3 pg (25.7-33.7); MCHC 31.6 g/dl (32.0-35.9); MEAN CELL VOLUME 83.1 fl (80-96); NEUT % 71.1 % (42.8-82.8); PLATELET COUNT 240 10^3/uL (134-434); RDW 16.5 % (11.9-15.9); WHITE BLOOD COUNT 10.2 K/mm3 (4.0-10.0)
[2024-06-16 02:02] LABS: VENOUS BASE EXCESS 3.1 mmol/L (-2-2)
[2024-06-16 02:08] LABS: VENOUS PH 7.109 (7.310-7.410)
[2024-06-16 02:09] LABS: VENOUS PCO2 117.9 mmHg (38-52)
[2024-06-16 02:12] LABS: POTASSIUM 5.1 mmol/L (3.5-5.1)
[2024-06-16 02:14] LABS: CALCIUM 9.3 mg/dL (8.5-10.1)
[2024-06-16 02:15] LABS: BLOOD UREA NITROGEN 11.1 mg/dL (7-18)
[2024-06-16 02:18] LABS: CREATININE 0.9 mg/dL (0.55-1.3)
[2024-06-16 02:19] LABS: BILIRUBIN,TOTAL 0.4 mg/dL (0.2-1); TOT PROT 8.2 g/dl (6.4-8.2)
[2024-06-16] MEDS: ALBUTEROL SO4 2.5/IPRATROPIUM 0.5 INH SOL 3 ML VIAL.NEB. NEB SCH ×2 (02:22→07:15)
[2024-06-16 02:28] LABS: LACTIC ACID 3.2 mmol/L (0.4-2.0)
[2024-06-16 02:49] LABS: VENOUS BASE EXCESS 2.3 mmol/L (-2-2); VENOUS O2 SATURATION 27.7 % (70-80); VENOUS PCO2 67.2 mmHg (38-52); VENOUS PH 7.277 (7.310-7.410)
[2024-06-16] MEDS: LACTATED RINGERS SOLUTION 1000 ML INFUS.BAG IV ONE (03:09)
[2024-06-16 04:30] LABS: VENOUS BASE EXCESS 1.4 mmol/L (-2-2); VENOUS O2 SATURATION 65.1 % (70-80); VENOUS PCO2 63.1 mmHg (38-52); VENOUS PH 7.283 (7.310-7.410)
[2024-06-16] MEDS ORDERED: BUPRENORPHINE TD SCH (06:45)
[2024-06-16] MEDS ORDERED: [UNRECOGNIZED DRUG - OTHER] TD SCH (06:45)
[2024-06-16 08:21] LABS: HEMATOCRIT 33.3 % (35.4-49); HEMOGLOBIN 10.6 GM/dL (11.7-16.9); MCHC 31.8 g/dl (32.0-35.9); MEAN CELL VOLUME 81.6 fl (80-96); MEAN PLT VOLUME 8.8 fl (7.5-11.1); PLATELET COUNT 197 10^3/uL (134-434); RBC 4.08 M/mm3 (4.00-5.60); RDW 16.2 % (11.9-15.9); WHITE BLOOD COUNT 14.3 K/mm3 (4.0-10.0)
[2024-06-16 08:35] LABS: POTASSIUM 4.1 mmol/L (3.5-5.1)
[2024-06-16 08:49] LABS: LACTIC ACID 2.3 mmol/L (0.4-2.0)
[2024-06-16 09:02] LABS: ALBUMIN 3.5 g/dl (3.4-5.0); BLOOD UREA NITROGEN 10.8 mg/dL (7-18); CALCIUM 8.9 mg/dL (8.5-10.1); MAGNESIUM 1.9 mg/dL (1.8-2.4)
[2024-06-16 09:05] LABS: CREATININE 0.9 mg/dL (0.55-1.3)
[2024-06-16 09:06] LABS: PHOSPHOROUS 2.5 mg/dL (2.5-4.9)
[2024-06-16 09:07] LABS: BILIRUBIN,TOTAL 0.5 mg/dL (0.2-1)
[2024-06-16] MEDS: methylPREDNISolone NA SUCC 40 MG/1 ML VIAL IVPUSH SCH (09:58)
[2024-06-16] MEDS: ENOXAPARIN NA (PORCINE) 40 MG/0.4 ML DISP.SYRIN SQ SCH (09:58)
[2024-06-16] MEDS: AZITHROMYCIN IVPB 500 MG/250 ML BAG IVPB SCH (09:58)
[2024-06-16] MEDS ORDERED: FLUTICASONE/UMECLIDIN/VILANTER(200-62.5-25 TRELEGY ELLIPTA) INAHLER IH SCH (10:00)
[2024-06-16 10:25] LABS: LACTIC ACID 2.9 mmol/L (0.4-2.0)
[2024-06-16] MEDS: TAMSULOSIN HCL 0.4 MG CAP PO ONE (10:50)
[2024-06-16] MEDS: SODIUM CHLORIDE 500 ML IV STA (11:57)
[2024-06-16 12:40] VITALS: BMI 16.0
[2024-06-16 12:40] LABS: EPI CELLS >36 /uL (0-25.1); HYALINE CASTS 9 /uL (0-3.1); PH,URINE 5.5 (5.0-8.0); URINE APPEARANCE CLEAR; URINE BACTERIA 44 /uL (0-1359); URINE BILIRUBIN NEGATIVE (NEGATIVE); URINE COLOR YELLOW; URINE GLUCOSE (UA) 2+ (NEGATIVE); URINE KETONE NEGATIVE (NEGATIVE); URINE LEUK ESTERASE TRACE (NEGATIVE); URINE NITRITE NEGATIVE (NEGATIVE); URINE PROTEIN TRACE (NEGATIVE); URINE RBC 891 /uL (0-23.9); URINE UROBILINOGEN 0.2 mg/dL (0.2-1.0); URINE WBC 137 /uL (0-25.8)
[2024-06-16] MEDS: GABAPENTIN 300 MG CAPSULE PO SCH (15:26)
[2024-06-16] MEDS: POLYETHYLENE GLYCOL (HEALTHYLAX) 3350 17 GM PACKET PO ONE (15:26)
[2024-06-16] MEDS: BUDESONIDE/FORMETEROL FUMARATE 80/4.5 mcg INHALER IH SCH (17:27)
[2024-06-16] MEDS: ACETAMINOPHEN 1000 MG/100 ML BAG IVPB ONE (20:02)
[2024-06-17 07:47] LABS: HEMATOCRIT 30.4 % (35.4-49); HEMOGLOBIN 9.3 GM/dL (11.7-16.9); MCH 25.1 pg (25.7-33.7); MCHC 30.5 g/dl (32.0-35.9); MEAN CELL VOLUME 82.5 fl (80-96); MEAN PLT VOLUME 8.5 fl (7.5-11.1); PLATELET COUNT 186 10^3/uL (134-434); RBC 3.69 M/mm3 (4.00-5.60); RDW 16.4 % (11.9-15.9); WHITE BLOOD COUNT 14.8 K/mm3 (4.0-10.0)
[2024-06-17 08:06] LABS: POTASSIUM 4.5 mmol/L (3.5-5.1)
[2024-06-17 08:08] LABS: CALCIUM 8.5 mg/dL (8.5-10.1)
[2024-06-17 08:09] LABS: ALBUMIN 2.9 g/dl (3.4-5.0); BLOOD UREA NITROGEN 14.8 mg/dL (7-18); MAGNESIUM 2.1 mg/dL (1.8-2.4)
[2024-06-17 08:12] LABS: CREATININE 0.8 mg/dL (0.55-1.3)
[2024-06-17 08:13] LABS: BILIRUBIN,TOTAL 0.3 mg/dL (0.2-1); TOT PROT 6.4 g/dl (6.4-8.2)
[2024-06-17 09:33] LABS: ANISOCYTOSIS 0; MACROCYTOSIS 0; TARGET CELLS 1+
[2024-06-17] MEDS: POLYETHYLENE GLYCOL (HEALTHYLAX) 3350 17 GM PACKET PO SCH (09:50)
[2024-06-17] MEDS: TAMSULOSIN HCL 0.4 MG CAP PO SCH (09:50)
[2024-06-17] MEDS: BUPRENORPHINE 15 MCG/HR PATCH TD SCH (17:12)
[2024-06-18 07:45] LABS: HEMATOCRIT 30.2 % (35.4-49); HEMOGLOBIN 9.4 GM/dL (11.7-16.9); MCH 25.5 pg (25.7-33.7); MEAN CELL VOLUME 82.2 fl (80-96); MEAN PLT VOLUME 8.5 fl (7.5-11.1); PLATELET COUNT 181 10^3/uL (134-434); RBC 3.68 M/mm3 (4.00-5.60); RDW 15.9 % (11.9-15.9); WHITE BLOOD COUNT 12.7 K/mm3 (4.0-10.0)
[2024-06-18 07:47] LABS: HEMATOCRIT 30.2 % (35.4-49); HEMOGLOBIN 9.4 GM/dL (11.7-16.9); MCH 25.7 pg (25.7-33.7); MCHC 31.3 g/dl (32.0-35.9); MEAN CELL VOLUME 82.1 fl (80-96); MEAN PLT VOLUME 9.2 fl (7.5-11.1); PLATELET COUNT 193 10^3/uL (134-434); RBC 3.68 M/mm3 (4.00-5.60); RDW 16.5 % (11.9-15.9); WHITE BLOOD COUNT 12.9 K/mm3 (4.0-10.0)
[2024-06-18 08:16] LABS: POTASSIUM 4.6 mmol/L (3.5-5.1)
[2024-06-18 08:18] LABS: BLOOD UREA NITROGEN 18.3 mg/dL (7-18); CALCIUM 8.4 mg/dL (8.5-10.1); MAGNESIUM 2.3 mg/dL (1.8-2.4)
[2024-06-18 08:19] LABS: ALBUMIN 2.9 g/dl (3.4-5.0)
[2024-06-18 08:22] LABS: CREATININE 0.7 mg/dL (0.55-1.3)
[2024-06-18 08:23] LABS: BILIRUBIN,TOTAL 0.3 mg/dL (0.2-1); TOT PROT 6.4 g/dl (6.4-8.2)
[2024-06-18 10:06] LABS: ANISOCYTOSIS 0; MACROCYTOSIS 0; OVALOCYTE 1+
[2024-06-18] MEDS: ALBUTEROL SO4 HFA INHALER IH PRN (10:11)
[2024-06-18] MEDS: BISACODYL 5 MG TABLET.DR (FP) PO PRN (10:12)
[2024-06-18] MEDS: methylPREDNISolone NA SUCC 40 MG/1 ML VIAL IVPUSH SCH (21:16)
[2024-06-19 06:34] VITALS: RESP 18
[2024-06-19 08:05] LABS: BASO % 0.1 % (0-2.0); HEMATOCRIT 31.4 % (35.4-49); HEMOGLOBIN 10.1 GM/dL (11.7-16.9); MCH 26.3 pg (25.7-33.7); MCHC 32.1 g/dl (32.0-35.9); MEAN CELL VOLUME 81.9 fl (80-96); MEAN PLT VOLUME 9.7 fl (7.5-11.1); MONO % 6.2 % (3.8-10.2); NEUT % 88.7 % (42.8-82.8); PLATELET COUNT 206 10^3/uL (134-434); RBC 3.83 M/mm3 (4.00-5.60); RDW 16.1 % (11.9-15.9); WHITE BLOOD COUNT 9.6 K/mm3 (4.0-10.0)
[2024-06-19 08:31] LABS: POTASSIUM 4.7 mmol/L (3.5-5.1)
[2024-06-19 08:37] LABS: CALCIUM 9.2 mg/dL (8.5-10.1)
[2024-06-19 08:38] LABS: ALBUMIN 2.9 g/dl (3.4-5.0); BLOOD UREA NITROGEN 26.7 mg/dL (7-18); MAGNESIUM 2.1 mg/dL (1.8-2.4)
[2024-06-19 08:39] LABS: CREATININE 0.8 mg/dL (0.55-1.3)
[2024-06-19 08:40] LABS: BILIRUBIN,TOTAL 0.5 mg/dL (0.2-1); TOT PROT 6.4 g/dl (6.4-8.2)
[2024-06-20 07:08] VITALS: BP 118/73; PULSE 62; TEMP 98.2
[2024-06-20] MEDS: predniSONE 20 MG TABLET (UD) PO SCH (09:45)
== END 2024-06-20 11:22 | disposition home health service (06) | DRG 190 ==
LOC: JER 00:59 → JERBED 04:48 → J7W 08:52
PROVIDERS: ADMIT Student in an Organized Health Care Education/Training Program; ATTEND Physician Assistant
DX: J44.1 Chronic obstructive pulmonary disease with (acute) exacerbation (principal); E43 Unspecified severe protein-calorie malnutrition; J96.22 Acute and chronic respiratory failure with hypercapnia; J98.11 Atelectasis; Z68.1 Body mass index [BMI] 19.9 or less, adult; E87.20 Acidosis, unspecified; R64 Cachexia; F11.20 Opioid dependence, uncomplicated; D72.829 Elevated white blood cell count, unspecified; R33.9 Retention of urine, unspecified; D64.9 Anemia, unspecified; R31.9 Hematuria, unspecified
CPT/HCPCS: 0241U-QW; 36415; 71045-TC-FY; 80053; 81003; 82803; 83605; 83735; 83880; 84100; 84484; 85025; 85027; 93005; 93010; 94640; 94660; 97116-GP; 97161-GP; 99285-25; J0131

== ENCOUNTER 2024-08-05 19:00 | Emergency (ER) | payer MEDICARE, OTHER ==
[2024-08-05 19:52] VITALS: BMI 16.2
[2024-08-05 20:41] VITALS: PULSE 85
[2024-08-05 20:44] LABS: URINE APPEARANCE CLEAR; URINE BILIRUBIN NEGATIVE (NEGATIVE); URINE COLOR YELLOW; URINE GLUCOSE (UA) NEGATIVE (NEGATIVE); URINE KETONE NEGATIVE (NEGATIVE); URINE LEUK ESTERASE NEGATIVE (NEGATIVE); URINE NITRITE NEGATIVE (NEGATIVE); URINE PROTEIN NEGATIVE (NEGATIVE)
[2024-08-05 20:46] VITALS: BP 117/81; RESP 22; TEMP 97.6
== END 2024-08-06 01:53 | disposition home or self-care (01) ==
LOC: JER 19:00
PROC: 0T2BX0Z Change Drainage Device in Bladder, External Approach (ICD-10-PCS; principal; 2024-08-05)
DX: N40.1 Benign prostatic hyperplasia with lower urinary tract symptoms (principal); R33.8 Other retention of urine; R10.30 Lower abdominal pain, unspecified
CPT/HCPCS: 51702; 81003; 87086; 99284-25

== ENCOUNTER 2024-11-08 14:43 | Emergency (ER) | payer MEDICARE, OTHER ==
[2024-11-08 15:08] VITALS: TEMP 98.3; BMI 16.1
[2024-11-08 15:59] LABS: EPI CELLS 9 /uL (0-25.1); HYALINE CASTS 1 /uL (0-3.1); URINE APPEARANCE CLEAR; URINE BACTERIA 78 /uL (0-1359); URINE BILIRUBIN NEGATIVE (NEGATIVE); URINE COLOR YELLOW; URINE GLUCOSE (UA) NEGATIVE (NEGATIVE); URINE KETONE NEGATIVE (NEGATIVE); URINE LEUK ESTERASE 2+ (NEGATIVE); URINE NITRITE NEGATIVE (NEGATIVE); URINE PROTEIN NEGATIVE (NEGATIVE); URINE RBC 9 /uL (0-23.9); URINE UROBILINOGEN 0.2 mg/dL (0.2-1.0); URINE WBC 143 /uL (0-25.8)
[2024-11-08] MEDS ORDERED: CEPHALEXIN MONOHYDRATE 500 MG CAPSULE (UD) ONE (16:28)
[2024-11-08] MEDS: CEPHALEXIN MONOHYDRATE 500 MG CAPSULE (UD) PO ONE (16:30)
[2024-11-08 16:44] LABS: CO2 28.0 mmol/L (21-32); GLUCOSE,RANDOM 98.0 mg/dL (74-106)
[2024-11-08 16:47] LABS: CREATININE 0.8 mg/dL (0.55-1.3); SGOT/AST 31.0 U/L (15-37); SGPT/ALT 15.0 U/L (13-61); TOT PROT 7.8 g/dl (6.4-8.2)
[2024-11-08 16:49] LABS: ALK PHOS 56.0 U/L (45-117)
[2024-11-08 20:35] VITALS: BP 113/76; PULSE 82; RESP 18
== END 2024-11-08 20:44 | disposition home or self-care (01) ==
LOC: JER 14:43
DX: R33.9 Retention of urine, unspecified (principal)
CPT/HCPCS: 36415; 80053; 81003; 87086; 93005; 93010; 99284-25